=== PATIENT | female | born 1990 | race Caucasian/White ===

== ENCOUNTER 2016-03-07 15:25 | Inpatient (IN) | payer OTHER ==
[2016-03-07] MEDS ORDERED: SODIUM CHLORIDE 1,000 ML IV ONE ×2 (15:45→17:12)
--- NOTE | 2016-03-07 15:46 | PDOC ---
History of Present Illness - History of Present Illness Initial Comments: 03/07/16 18:11 The patient is a 25 year old female, with a significant past medical history of gastroparesis, IDDM, anxiety and depression, who presents to the emergency department with nausea and persistent vomiting today s/p discharge from the ICU on 03/03/16 for DKA (fs [id number]). She states she has been nauseous, vomiting brown liquid constantly since awakening this morning associated with epigastric pain c /w her gastroparesis. She states she has been experiencing pain/burning when swallowing recently, which she attributes to her recent intubation. She states she controls her diabetes with humalog and insulin daily and states her bgm was flucutanting but not severely deranged. She states she takes reglan for her gastroparesis. She denies chest pain, shortness of breath, headache and dizziness. She denies fever, chills, diarrhea and constipation. She denies dysuria, frequency, urgency and hematuria. pt currently having menses. Allergies: NKDA Social history: denies toxic habits PCP - Dr. Acevedo Crematory Operator: Dr. Alvarenga <Sylwia Fishman - Last Filed: 03/07/16 18:11> <Jason Ferreira - Last Filed: 03/09/16 02:27> - General Chief Complaint: Blood Sugar Problem Stated Complaint: BLOOD SUGAR PROBLEM Time Seen by Provider: 03/07/16 15:29 Past History <Sylwia Fishman - Last Filed: 03/07/16 18:11> - Past Medical History Anemia: No Asthma: No Cancer: No Cardiac Disorders: No CVA: No COPD: No CHF: No Dementia: No Diabetes: Yes GI Disorders: Yes (gastroparesis) Disorders: No HTN: No Hypercholesterolemia: No Liver Disease: No Psychiatric Problems: Yes (ANXIETY DEPRESSION) Suicide Attempt (Hx): No Seizures: No Thyroid Disease: No - Surgical History Abdominal Surgery: No Appendectomy: No Cardiac Surgery: No Cholecystectomy: No Lung Surgery: No Neurologic Surgery: No Orthopedic Surgery: No - Family Disease History Family Disease History: Diabetes: Grandparents (great-grandmother) - Immunization History Immunization Up to Date: Yes - Psycho/Social/Smoking Cessation Hx Anxiety: No Suicidal Ideation: No Smoking Status: No Smoking History: Current every day smoker Have you smoked in the past 12 months: Yes Number of Cigarettes Smoked Daily: 10 Information on smoking cessation initiated: No 'Breaking Loose' booklet given: 09/03/15 Hx Alcohol Use: No Drug/Substance Use Hx: No Substance Use Type: None Hx Substance Use Treatment: No <Jason Ferreira - Last Filed: 03/09/16 02:27> - Past Medical History Allergies/Adverse Reactions: Allergies Allergy/AdvReac Type Severity Reaction Status Date / Time No Known Allergies Allergy Verified 03/07/16 15:35 Home Medications: Ambulatory Orders Insulin Lispro [Humalog] 0 unit SQ ASDIR 07/18/13 Amitriptyline HCl [Elavil -] 3 tab PO DAILY #0 06/27/15 Acetaminophen [Tylenol] 650 mg PO Q4H PRN #20 tablet 01/17/16 Metoclopramide HCl [Reglan] 10 mg PO Q6H PRN #15 tablet 01/17/16 Ranitidine HCl [Zantac] 150 mg PO BID PRN #20 tablet 01/17/16 Insulin (Levemir) [Levemir Vial] 15 units SQ BIDAC #12 ml 03/03/16 Valacyclovir HCl [Valtrex -] 500 mg PO BID #10 tablet 03/03/16 Review of Systems - Review of Systems Able to Perform ROS?: Yes Comments:: 03/07/16 18:12 CONSTITUTIONAL: No reported: Fever, Chills, Diaphoresis, Generalized Weakness, Malaise, Loss of Appetite HEENT: No reported: Rhinorrhea, Nasal Congestion, Throat Pain, Throat Swelling, Difficulty Swallowing, Mouth Swelling, Ear Pain, Eye Pain, Visual Changes CARDIOVASCULAR: No reported: Chest Pain, Syncope, Palpitations, Irregular Heart Rate, Lightheadedness, Peripheral Edema RESPIRATORY: No reported: Cough, Shortness of Breath, SOB with Exertion, Orthopnea, Wheezing , Stridor, Hemoptysis GASTROINTESTINAL: No reported:(+) Nausea, Vomiting, NO Abdominal pain, Abdominal Distension, Diarrhea, Constipation, Melena, Hematochezia GENITOURINARY: No reported: Dysuria, Frequency, Urgency, Hesitancy, Flank Pain, Genital Pain MUSCULOSKELETAL: No reported: Myalgia, Arthralgia, Joint Swelling, Back pain, Neck Pain SKIN: No reported: Rash, Itching, Pallor HEMEATOLOGIC/IMMUNOLOGIC: No reported: Easy Bleeding, Easy Bruising, Lymphadenopathy, Frequent infections ENDOCRINE: No reported: Unexplained Weight Gain, Unexplained Weight Loss, Heat Intolerance , Cold Intolerance NEUROLOGIC: No reported: Headache, Focal Weakness, Paresthesias, Vertigo, Lightheadedness, Unsteady Gait, Seizure, Mental Status Changes, Incontinence PSYCHIATRIC: No reported: Anxiety, Depression <Sylwia Fishman - Last Filed: 03/07/16 18:11> *Physical Exam - Vital Signs Last Vital Signs Temp Pulse Resp BP Pulse Ox 99.3 F 101 H 16 146/93 98 03/07/16 15:37 03/07/16 15:37 03/07/16 15:37 03/07/16 15:37 03/07/16 15:37 - Physical Exam Comments: 03/07/16 18:12 GENERAL: The patient is actively vomiting upon exam. She is awake, alert, and fully oriented, Nontoxic - in no acute distress. HEAD: Normocephalic, atraumatic. EYES: extraocular movements intact, sclera anicteric, conjunctiva clear. ENT: Normal voice, Moist mucous membranes. NECK: Normal range of motion, supple LUNGS: Breath sounds equal, clear to auscultation bilaterally. No wheezes, no rhonchi, no rales. HEART: Regular rate and rhythm, without murmur, rub or gallop. ABDOMEN: Soft, nontender, normoactive bowel sounds. No guarding, no rebound.No CVA tenderness EXTREMITIES: Normal range of motion, no edema. No clubbing or cyanosis. No cords, erythema, or tenderness. NEUROLOGICAL: No facial assymetry, Normal speech, PSYCH: Normal mood, normal affect. SKIN: Warm, Dry, normal turgor, <Sylwia Fishamn - Last Filed: 03/07/16 18:11> - Vital Signs Last Vital Signs Temp Pulse Resp BP Pulse Ox 99.3 F 101 H 16 146/93 98 03/07/16 15:37 03/07/16 15:37 03/07/16 15:37 03/07/16 15:37 03/07/16 15:37 <Jason Ferreira - Last Filed: 03/09/16 02:27> Heart Score/ECG Review - ECG Impressions Comment:: 03/07/16 17:56 Twelve-lead EKG was performed and reviewed by me. There is normal sinus rhythm with a rate of 104 The axis is normal. The intervals are normal. Impression: sinus tachycardia <HannaJustinJason - Last Filed: 03/09/16 02:27> ED Treatment Course - LABORATORY CBC & Chemistry Diagram: 03/07/16 16:20 03/07/16 16:20 - ADDITIONAL ORDERS Additional order review: Laboratory Results 03/07/16 03/07/16 03/07/16 16:20 16:20 16:20 VBG pH 7.39 POC VBG pCO2 47.8 D POC VBG pO2 21.6 L D Sodium 139 Potassium 4.1 Chloride 101 Carbon Dioxide 28 Anion Gap 10 BUN 12 D Creatinine 0.6 Creat Clearance w eGFR > 60 POC Glucometer Random Glucose 211 H D Calcium 8.9 Phosphorus 3.3 D Magnesium 1.7 L D Total Bilirubin 0.4 AST 12 L D ALT 20 Alkaline Phosphatase 110 Total Protein 6.3 L Albumin 3.0 L Serum , Qual Negative 03/07/16 15:29 VBG pH POC VBG pCO2 POC VBG pO2 Sodium Potassium Chloride Carbon Dioxide Anion Gap BUN Creatinine Creat Clearance w eGFR POC Glucometer [phone] Random Glucose Calcium Phosphorus Magnesium Total Bilirubin AST ALT Alkaline Phosphatase Total Protein Albumin Serum , Qual 03/07/16 03/07/16 16:20 15:29 RBC 3.99 MCV 94.3 MCHC 32.3 RDW 13.5 MPV 8.0 Neutrophils % 80.0 Lymphocytes % 13.7 D Monocytes % 5.8 Eosinophils % 0.2 D Basophils % 0.3 POC Glucometer [phone] - Medications Given in the ED: ED Medications Discontinued Medications Generic Name Dose Route Start Last Admin Trade Name Freq PRN Reason Stop Dose Admin Sodium Chloride 1,000 mls @ 1,000 mls/hr 03/07/16 15:45 03/07/16 15:57 Normal Saline - IV 03/07/16 16:44 1,000 mls/hr .Q1H ONE Administration Sodium Chloride 1,000 mls @ 1,000 mls/hr 03/07/16 17:12 03/07/16 17:57 Normal Saline - IV 03/07/16 18:11 1,000 mls/hr .Q1H ONE Administration Magnesium Sulfate 1 gm 03/07/16 17:12 03/07/16 17:57 Magnesium Sulfate IVPB 12/31/16 17:13 1 gm ONCE ONE Administration Metoclopramide HCl 10 mg 03/07/16 15:52 03/07/16 16:20 Reglan Injection - IVPUSH 03/07/16 15:53 10 mg ONCE ONE Administration Morphine Sulfate 2 mg 03/07/16 15:52 03/07/16 16:20 Morphine Injection - IVPUSH 03/07/16 15:53 2 mg ONCE ONE Administration <Sylwia Fishman - Last Filed: 03/07/16 18:11> - LABORATORY CBC & Chemistry Diagram: 03/08/16 08:20 03/08/16 08:20 <Jason Ferreira - Last Filed: 03/09/16 02:27> Medical Decision Making - Medical Decision Making 03/07/16 15:59 25y F hx gastroparesis, dka, with recent hospitalization for dka, presents with epgiastric pain and vomiting since this morning, pt staets her bgms have been up and down but fairly reasonable. on exam pt is wretching, and uncomfortable appearing, her abd exam is soft nontender. will r/o dka w/ labs, acetones, blood gas will give fluids morpine, reglan for sypmtomatic relief will reassess 03/07/16 17:31 pts labs reviewed no signs of dka or acidosis bgm is also reasonable will give pt another L of NS will then PO challenge, if pt is not feeling well, nauseus will observe as pt is high risk for DKA if she is not able to hydrate orally 03/07/16 18:56 pt was able to tolerate some water, but was still feeling very nauseus due to the patients hx of gastroparesis and recent DKA with severe acidosis, will observe the pt for further hydration and treatment of nausea/gastroparesis will observe on hospitalist service 03/07/16 19:11 case d/w dr. taylor agreed with observatio nfor furthe rmangment of gastroparesis stable for med/surg Case discussed in detail with admitting physician including history, physical exam and ancillary studies. Admitting physician has assumed care for the patient, will follow all pending diagnostics and will complete the evaluation and treatment. <Jason Ferreira - Last Filed: 03/09/16 02:27> *DC/Admit/Observation/Transfer - Attestations Scribe Attestion: 03/07/16 18:12 Documentation prepared by Sylwia Fishman, acting as medical records field technician for Jason Ferreira MD, MD <Sylwia Fishman - Last Filed: 03/07/16 18:11> - Discharge Dispostion Admit: Yes <Jason Ferreira - Last Filed: 03/09/16 02:27> Diagnosis at time of Disposition: Gastroparesis due to DM, Nausea - Discharge Dispostion Disposition: AGAINST MEDICAL ADVICE - Referrals
[2016-03-07] MEDS ORDERED: METOCLOPRAMIDE HCL INJECTION 10 MG/2 ML VIAL IVPUSH ONE (15:52)
[2016-03-07] MEDS ORDERED: morphine CARPU-JECT 2 MG/1 ML DISP.SYRIN IVPUSH ONE (15:52)
[2016-03-07] MEDS ORDERED: morphine CARPU-JECT 2 MG/1 ML DISP.SYRIN ONE (15:58)
[2016-03-07] MEDS ORDERED: METOCLOPRAMIDE HCL INJECTION 10 MG/2 ML VIAL ONE ×2 (15:58→19:52)
[2016-03-07 16:22] LABS: VENOUS PH 7.39 (7.31-7.41)
[2016-03-07 16:34] LABS: BASOPHIL 0.3 % (0-2.0); EOSINOPHIL 0.2 % (0-4.5); MCH 30.5 pg (25.7-33.7); MCHC 32.3 g/dl (32.0-36.0); MEAN CELL VOLUME 94.3 fl (80-96); PLATELET COUNT 517 K/MM3 (134-434); RDW 13.5 % (11.6-15.6); WHITE BLOOD COUNT 15.4 K/mm3 (4.0-10.0)
[2016-03-07 16:58] LABS: ALK PHOS 110 U/L (45-117); ANION GAP 10 (8-16); BILIRUBIN,TOTAL 0.4 mg/dL (0.2-1.0); CALCIUM 8.9 mg/dL (8.5-10.1); CO2 28 mmol/L (21-32); CREATININE 0.6 mg/dL (0.55-1.02); GLUCOSE,RANDOM 211 mg/dL (74-106); MAGNESIUM 1.7 mg/dL (1.8-2.4); PHOSPHOROUS 3.3 mg/dL (2.5-4.9); SGOT/AST 12 U/L (15-37); SGPT/ALT 20 U/L (12-78); TOT PROT 6.3 g/dl (6.4-8.2)
[2016-03-07] MEDS ORDERED: MAGNESIUM SULF 50% (8.12 MEQ/2 ML-1 GM VIAL) IVPB ONE (17:12)
[2016-03-07] MEDS ORDERED: MAGNESIUM SULF 50% (8.12 MEQ/2 ML-1 GM VIAL) ONE (17:50)
[2016-03-07] MEDS ORDERED: ONDANSETRON 4 MG/2 ML VIAL IVPB ONE (18:56)
--- NOTE | 2016-03-07 19:04 | PN ---
Teaching Attending Note Name of Resident: Meli Silva ATTENDING PHYSICIAN STATEMENT I saw and evaluated the patient. I reviewed the resident's note and discussed the case with the resident. I agree with the resident's findings and plan as documented. SUBJECTIVE: OBJECTIVE: ASSESSMENT AND PLAN:
[2016-03-07] MEDS ORDERED: ONDANSETRON 4 MG/2 ML VIAL ONE (19:07)
[2016-03-07] MEDS ORDERED: METOCLOPRAMIDE HCL INJECTION 10 MG/2 ML VIAL IVPB ONE (19:26)
[2016-03-07] MEDS ORDERED: SODIUM CHLORIDE 1,000 ML IV STA (19:26)
--- NOTE | 2016-03-07 19:50 | HP ---
CHIEF COMPLAINT: Nausea and vomiting PCP: HISTORY OF PRESENT ILLNESS: 25 yo F, with PMH of IDDM requiring several hospitalizations for hyperglycemia, gastroparesis, frequent UTI, anxiety and depression who presented to the hospital with nausea and vomiting that started today in the morning. She vomited once at home with brownish fluid and twice in ED. She was recently hospitalized in [place] for DKA and intubated. The pt is complaining of burning with swallowing since her last admission. She is also complaining of constipation. The pt is compliant with insulin; Lantus 15 units at bedtime. BGM at home around 200s. She denies diarrhea, dizziness, fever, chills, chest pain, SOB, cough. She denies dysuria, increased frequency, urgency, LOC, dizziness. ER course was notable for: (1)WBC 15.4 (2)EKG nl PAST MEDICAL HISTORY: IDDM diagnosed at age 8, gastroparesis, frequent UTI, depression, anxiety PAST SURGICAL HISTORY: None Social History: Smoking:Yes, current smoker 10 cigarettes/day for 10 years Alcohol:No Drugs:No Family History: Mother and Father are both healthy Allergies No Known Allergies Allergy (Verified 03/07/16 15:35) HOME MEDICATIONS: Medication Instructions Recorded Insulin Lispro [Humalog] 0 unit SQ ASDIR 07/18/13 Amitriptyline HCl [Elavil -] 3 tab PO DAILY #0 06/27/15 Acetaminophen [Tylenol] 650 mg PO Q4H PRN #20 tablet 01/17/16 Metoclopramide HCl [Reglan] 10 mg PO Q6H PRN #15 tablet 01/17/16 Ranitidine HCl [Zantac] 150 mg PO BID PRN #20 tablet 01/17/16 Insulin (Levemir) [Levemir Vial] 15 units SQ BIDAC #12 ml 03/03/16 Valacyclovir HCl [Valtrex -] 500 mg PO BID #10 tablet 03/03/16 REVIEW OF SYSTEMS CONSTITUTIONAL: Absent: fever, chills, diaphoresis, generalized weakness, malaise, loss of appetite, weight change HEENT: throat pain Absent: rhinorrhea, nasal congestion, , throat swelling, difficulty swallowing , mouth swelling, ear pain, eye pain, visual changes CARDIOVASCULAR: Absent: chest pain, syncope, palpitations, irregular heart rate, lightheadedness , peripheral edema RESPIRATORY: Absent: cough, shortness of breath, dyspnea with exertion, orthopnea, wheezing, stridor, hemoptysis GASTROINTESTINAL: nausea, vomiting, constipation Absent: abdominal pain, abdominal distension, diarrhea, melena, hematochezia GENITOURINARY: Absent: dysuria, frequency, urgency, hesitancy, hematuria, flank pain, genital pain MUSCULOSKELETAL: Absent: myalgia, arthralgia, joint swelling, back pain, neck pain SKIN: Absent: rash, itching, pallor HEMATOLOGIC/IMMUNOLOGIC: Absent: easy bleeding, easy bruising, lymphadenopathy, frequent infections ENDOCRINE: Absent: unexplained weight gain, unexplained weight loss, heat intolerance, cold intolerance NEUROLOGIC: Absent: headache, focal weakness or paresthesias, dizziness, unsteady gait, seizure, mental status changes, bladder or bowel incontinence PSYCHIATRIC: Absent: anxiety, depression PHYSICAL EXAMINATION Vital Signs - 24 hr 03/07/16 15:37 Temperature 99.3 F Pulse Rate 101 H Respiratory 16 Rate Blood Pressure 146/93 O2 Sat by Pulse 98 Oximetry (%) GENERAL: Awake, alert, and fully oriented, in no acute distress. HEAD: Normal with no signs of trauma. EYES: Pupils equal, round and reactive to light, extraocular movements intact, sclera anicteric, conjunctiva clear. No lid lag. EARS, NOSE, THROAT: Ears normal, nares patent, oropharynx clear without exudates. Moist mucous membranes. NECK: Normal range of motion, supple without lymphadenopathy, JVD, or masses. LUNGS: Breath sounds equal, clear to auscultation bilaterally. No wheezes, and no crackles. No accessory muscle use. HEART: Regular rate and rhythm, normal S1 and S2 without murmur, rub or gallop. ABDOMEN: Soft, nontender, not distended, normoactive bowel sounds, no guarding, no rebound, no masses. No hepatomegaly or splenomegaly. MUSCULOSKELETAL: Normal range of motion at all joints. No bony deformities or tenderness. No CVA tenderness. UPPER EXTREMITIES: 2+ pulses, warm, well-perfused. No cyanosis. No clubbing. Cap refill <2 seconds. No peripheral edema. LOWER EXTREMITIES: 2+ pulses, warm, well-perfused. No calf tenderness. No peripheral edema. NEUROLOGICAL: Cranial nerves II-XII intact. Normal speech. Normal gait. PSYCHIATRIC: Cooperative. Good eye contact. Appropriate mood and affect. SKIN: Warm, dry, normal turgor, no rashes, 2 cm healing wound on upper lip. Laboratory Results - last 24 hr 03/07/16 03/07/16 03/07/16 15:29 16:20 16:20 WBC 15.4 H RBC 3.99 Hgb 12.2 D Hct 37.7 D MCV 94.3 MCHC 32.3 RDW 13.5 Plt Count 517 H D MPV 8.0 Neutrophils % 80.0 Lymphocytes % 13.7 D Monocytes % 5.8 Eosinophils % 0.2 D Basophils % 0.3 VBG pH POC VBG pCO2 POC VBG pO2 Sodium Potassium Chloride Carbon Dioxide Anion Gap BUN Creatinine Creat Clearance w eGFR POC Glucometer [phone] Random Glucose Calcium Phosphorus Magnesium Total Bilirubin AST ALT Alkaline Phosphatase Total Protein Albumin Serum , Qual Negative Acetone, Qual 03/07/16 03/07/16 03/07/16 16:20 16:20 16:20 WBC RBC Hgb Hct MCV MCHC RDW Plt Count MPV Neutrophils % Lymphocytes % Monocytes % Eosinophils % Basophils % VBG pH 7.39 POC VBG pCO2 47.8 D POC VBG pO2 21.6 L D Sodium 139 Potassium 4.1 Chloride 101 Carbon Dioxide 28 Anion Gap 10 BUN 12 D Creatinine 0.6 Creat Clearance w eGFR > 60 POC Glucometer Random Glucose 211 H D Calcium 8.9 Phosphorus 3.3 D Magnesium 1.7 L D Total Bilirubin 0.4 AST 12 L D ALT 20 Alkaline Phosphatase 110 Total Protein 6.3 L Albumin 3.0 L Serum , Qual Acetone, Qual Trace H ASSESSMENT/PLAN: 25 yo F, with PMH of IDDM requiring several hospitalizations for hyperglycemia, gastroparesis, frequent UTI, anxiety and depression who presented to the hospital with nausea and vomiting that started today in the morning. She vomited once at home with brownish fluid and twice in ED. She was recently hospitalized in [place] for DKA and intubated. The pt is complaining of burning with swallowing since her last admission. Gastroparesis( Nause and Vomiting): -continue Reglan 10 mg IV, Ranitidine 150 mg BID -IVF-NS 1 L Bolus -consider CT abdomen tomorrow - IDDM: -continue Levemir 50 u BID -continue RISS ACHS -BGM Q4H HSV-upper lip: -continue Valtrex Depression; -continue home meds:Elavil DVT Prophylaxis; -SCDs F/E/N: NFS/No change/Diabetic diet Disposition: Placed in observation Problem List - Problem (1) Gastroparesis due to DM Code(s): E11.43 - TYPE 2 DIABETES W DIABETIC AUTONOMIC (POLY)NEUROPATHY K31.84 - GASTROPARESIS (2) Nausea Code(s): R11.0 - NAUSEA (3) Insulin dependent diabetes mellitus Code(s): E11.9 - TYPE 2 DIABETES MELLITUS WITHOUT COMPLICATIONS Z79.4 - [employer] ENGINEER (CURRENT) USE OF INSULIN (4) DVT prophylaxis Code(s): AJZ0276 - Visit type - Emergency Visit Emergency Visit: Yes Care time: The patient presented to the Emergency Department on the above date and was hospitalized for further evaluation of their emergent condition. - New Patient This patient is new to me today: Yes Date on this admission: 03/07/16 - Critical Care Critical Care patient: No
--- NOTE | 2016-03-07 19:53 | PN ---
<Chaim Charles - Last Filed: 03/07/16 19:53> Teaching Attending Note Name of Resident: Meli Silva ATTENDING PHYSICIAN STATEMENT I saw and evaluated the patient. I reviewed the resident's note and discussed the case with the resident. I agree with the resident's findings and plan as documented. SUBJECTIVE: OBJECTIVE: ASSESSMENT AND PLAN: <Jayjay Montalvo - Last Filed: 03/07/16 21:42> Teaching Attending Note Name of Resident: Meli Silva ATTENDING PHYSICIAN STATEMENT I saw and evaluated the patient. I reviewed the resident's note and discussed the case with the resident. I agree with the resident's findings and plan as documented. SUBJECTIVE: 25 year old female, with a history of IDDM, gastroparesis, anxiety and depression, who was recently admitted for DKA and currently presenting with consistent nausea and vomiting. OBJECTIVE: GENERAL: Awake, alert, and fully oriented, in no acute distress HEENT: Atraumatic. PERRLA, EOMI. +Dry mucosa. No JVD LUNGS: No distress, speaks full sentences, clear to auscultation bilaterally HEART: Regular rate and rhythm, normal S1 and S2, no murmurs, rubs or gallops, peripheral pulses normal and equal bilaterally. ABDOMEN: Soft, nontender, normoactive bowel sounds. No guarding, no rebound. No masses EXTREMITIES: Normal inspection, Normal range of motion, no edema. No clubbing or cyanosis. NEUROLOGICAL: Cranial nerves II through XII grossly intact. Normal speech, normal gait, no focal sensorimotor deficits SKIN: +Hepatic lesion upper lip. Warm, Dry, normal turgor, no rashes noted. CBCD WBC 15.4 K/mm3 (4.0-10.0) H 03/07/16 16:20 RBC 3.99 M/mm3 (3.60-5.2) 03/07/16 16:20 Hgb 12.2 GM/dL (10.7-15.3) D 03/07/16 16:20 Hct 37.7 % (32.4-45.2) D 03/07/16 16:20 MCV 94.3 fl (80-96) 03/07/16 16:20 MCHC 32.3 g/dl (32.0-36.0) 03/07/16 16:20 RDW 13.5 % (11.6-15.6) 03/07/16 16:20 Plt Count 517 K/MM3 (134-434) H D 03/07/16 16:20 MPV 8.0 fl (7.5-11.1) 03/07/16 16:20 CMP Sodium 139 mmol/L (136-145) 03/07/16 16:20 Potassium 4.1 mmol/L (3.5-5.1) 03/07/16 16:20 Chloride 101 mmol/L (98-107) 03/07/16 16:20 Carbon Dioxide 28 mmol/L (21-32) 03/07/16 16:20 Anion Gap 10 (8-16) 03/07/16 16:20 BUN 12 mg/dL (7-18) D 03/07/16 16:20 Creatinine 0.6 mg/dL (0.55-1.02) 03/07/16 16:20 Creat Clearance w eGFR > 60 (>60) 03/07/16 16:20 Calcium 8.9 mg/dL (8.5-10.1) 03/07/16 16:20 Total Bilirubin 0.4 mg/dL (0.2-1.0) 03/07/16 16:20 AST 12 U/L (15-37) L D 03/07/16 16:20 ALT 20 U/L (12-78) 03/07/16 16:20 Alkaline Phosphatase 110 U/L (45-117) 03/07/16 16:20 Total Protein 6.3 g/dl (6.4-8.2) L 03/07/16 16:20 Albumin 3.0 g/dl (3.4-5.0) L 03/07/16 16:20 ASSESSMENT AND PLAN: 25 year old female with IDDM, gastroparesis, anxiety and depression, presenting with persistent nausea and vomited being admitted for intractable nausea and vomiting 1.) Nausea and vomiting most likely related to diabetic gastroparesis -Worsening abdominal distention / pain, will consider CT abdomen/pelvis with contrast IVF -Continue with Reglan 2.) Insulin dependent diabetes, fingerstick Q4 - Continue with Levemir 15 mg BID, - Continue with sliding scale 3.) DVT prophylaxis - Low risks SCDs - Admit to observation 4.) HSV - Continue valtrex Documentation prepared by Jayjay Montalvo, acting as medical practitioners for Chaim Charles D.O.
[2016-03-07] MEDS ORDERED: METOCLOPRAMIDE HCL 10 MG TABLET (FP) PO PRN (20:19)
[2016-03-07] MEDS ORDERED: RANITIDINE HCL 150 MG TABLET (FP) PO PRN (20:19)
[2016-03-07] MEDS ORDERED: ACETAMINOPHEN 325 MG TABLET (FP) PO PRN (20:19)
[2016-03-07] MEDS ORDERED: POLYETHYLENE GLYCOL 3350 119 GM BTL PO ONE (21:36)
[2016-03-07] MEDS ORDERED: INSULIN SLIDING SCALE (NOVOLOG) 1 VIAL SQ SCH (22:00)
[2016-03-07] MEDS: INSULIN SLIDING SCALE (NOVOLOG) 1 VIAL SQ SCH (22:22)
[2016-03-07] MEDS: valACYclovir HCL 500 MG TABLET (FP) PO SCH (22:59)
[2016-03-08] MEDS ORDERED: METOCLOPRAMIDE HCL INJECTION 10 MG/2 ML VIAL IVPB SCH
[2016-03-08 00:11] VITALS: BMI 30.5
[2016-03-08] MEDS: METOCLOPRAMIDE HCL INJECTION 10 MG/2 ML VIAL IVPB SCH ×3 (01:09→12:37)
[2016-03-08] MEDS: INSULIN SLIDING SCALE (NOVOLOG) 1 VIAL SQ SCH ×3 (02:10→09:44)
[2016-03-08] MEDS ORDERED: INSULIN DETEMIR 100 UNITS/ML MDV SQ SCH (07:00)
[2016-03-08 07:49] VITALS: BP 120/71; PULSE 79; TEMP 98.3
[2016-03-08 08:39] LABS: MCH 32.6 pg (25.7-33.7); MCHC 34.8 g/dl (32.0-36.0); MEAN CELL VOLUME 93.9 fl (80-96); MEAN PLT VOLUME 7.5 fl (7.5-11.1); PLATELET COUNT 475 K/MM3 (134-434); RDW 13.1 % (11.6-15.6); WHITE BLOOD COUNT 10.8 K/mm3 (4.0-10.0)
--- NOTE | 2016-03-08 09:09 | PN ---
Physical Exam: SUBJECTIVE: Patient seen and examined OBJECTIVE: Vital Signs Temperature 98.3 F 03/08/16 07:48 Pulse Rate 79 03/08/16 07:48 Respiratory Rate 14 03/08/16 07:48 Blood Pressure 120/71 03/08/16 07:48 O2 Sat by Pulse Oximetry (%) 99 03/07/16 20:23 GENERAL: The patient is awake, alert, and fully oriented, in no acute distress. HEAD: Normal with no signs of trauma. EYES: PERRL, extraocular movements intact, sclera anicteric, conjunctiva clear. ENT: Ears normal, oropharynx clear without exudates, moist mucous membranes. NECK: Trachea midline, full range of motion, supple. LUNGS: Breath sounds equal, clear to auscultation bilaterally, no wheezes, no crackles, no accessory muscle use. HEART: Regular rate and rhythm, S1, S2 without murmur, rub or gallop. ABDOMEN: Soft, nontender, nondistended, normoactive bowel sounds, no guarding, no rebound, no hepatosplenomegaly, no masses. EXTREMITIES: 2+ pulses, warm, well-perfused, no edema. NEUROLOGICAL: Cranial nerves II through XII grossly intact. Normal speech, gait not observed. PSYCH: Normal mood, normal affect. SKIN: Warm, dry, normal turgor, no rashes or lesions noted CBCD WBC 10.8 K/mm3 (4.0-10.0) H 03/08/16 08:20 RBC 3.51 M/mm3 (3.60-5.2) L 03/08/16 08:20 Hgb 11.5 GM/dL (10.7-15.3) 03/08/16 08:20 Hct 33.0 % (32.4-45.2) 03/08/16 08:20 MCV 93.9 fl (80-96) 03/08/16 08:20 MCHC 34.8 g/dl (32.0-36.0) 03/08/16 08:20 RDW 13.1 % (11.6-15.6) 03/08/16 08:20 Plt Count 475 K/MM3 (134-434) H 03/08/16 08:20 MPV 7.5 fl (7.5-11.1) 03/08/16 08:20 CMP Sodium 139 mmol/L (136-145) 03/07/16 16:20 Potassium 4.1 mmol/L (3.5-5.1) 03/07/16 16:20 Chloride 101 mmol/L (98-107) 03/07/16 16:20 Carbon Dioxide 28 mmol/L (21-32) 03/07/16 16:20 Anion Gap 10 (8-16) 03/07/16 16:20 BUN 12 mg/dL (7-18) D 03/07/16 16:20 Creatinine 0.6 mg/dL (0.55-1.02) 03/07/16 16:20 Creat Clearance w eGFR > 60 (>60) 03/07/16 16:20 Random Glucose 211 mg/dL (74-106) H D 03/07/16 16:20 Calcium 8.9 mg/dL (8.5-10.1) 03/07/16 16:20 Total Bilirubin 0.4 mg/dL (0.2-1.0) 03/07/16 16:20 AST 12 U/L (15-37) L D 03/07/16 16:20 ALT 20 U/L (12-78) 03/07/16 16:20 Alkaline Phosphatase 110 U/L (45-117) 03/07/16 16:20 Total Protein 6.3 g/dl (6.4-8.2) L 03/07/16 16:20 Albumin 3.0 g/dl (3.4-5.0) L 03/07/16 16:20 Laboratory Results - last 24 hr 03/07/16 03/08/16 03/08/16 22:07 02:08 06:08 WBC RBC Hgb Hct MCV MCHC RDW Plt Count MPV POC Glucometer 131 266 169 03/08/16 08:20 WBC 10.8 H RBC 3.51 L Hgb 11.5 Hct 33.0 MCV 93.9 MCHC 34.8 RDW 13.1 Plt Count 475 H MPV 7.5 POC Glucometer Active Medications Generic Name Dose Route Start Last Admin Trade Name Freq PRN Reason Stop Dose Admin Acetaminophen 650 mg 03/07/16 20:19 Tylenol - PO Q4H PRN Pain Amitriptyline HCl 75 mg 03/08/16 10:00 Elavil - PO DAILY KARLENE Insulin Aspart 1 vial 03/07/16 22:00 03/08/16 06:17 Novolog Vial Sliding Scale - SQ 2 units Q4HPO KARLENE Administration Protocol Insulin Detemir 15 units 03/08/16 07:00 03/08/16 06:17 Levemir Vial SQ 15 units BIDAC KARLENE Administration Metoclopramide HCl 10 mg 03/08/16 01:00 03/08/16 06:16 Reglan Injection - IVPB 10 mg Q6HPO KARLENE Administration Ranitidine HCl 150 mg 03/07/16 20:19 Zantac - PO Q12H PRN Abdominal Pain Valacyclovir HCl 500 mg 03/07/16 22:00 03/07/16 22:59 Valtrex - PO 500 mg BID KARLENE Administration Medication Instructions Recorded Insulin Lispro [Humalog] 0 unit SQ ASDIR 07/18/13 Amitriptyline HCl [Elavil -] 3 tab PO DAILY #0 06/27/15 Acetaminophen [Tylenol] 650 mg PO Q4H PRN #20 tablet 01/17/16 Metoclopramide HCl [Reglan] 10 mg PO Q6H PRN #15 tablet 01/17/16 Ranitidine HCl [Zantac] 150 mg PO BID PRN #20 tablet 01/17/16 Insulin (Levemir) [Levemir Vial] 15 units SQ BIDAC #12 ml 03/03/16 Valacyclovir HCl [Valtrex -] 500 mg PO BID #10 tablet 03/03/16 ASSESSMENT/PLAN: 25 year old female with IDDM, gastroparesis, anxiety and depression, presenting with persistent nausea and vomited being admitted for intractable nausea and vomiting # Acute Intractable Nausea and vomiting most likely related to diabetic gastroparesis, with worsening abdominal distention and pain. will consider CT abdomen/pelvis with contrast IVF , on IV Reglan will continue # T1DM on sliding scale with coverage on Levemir 15 mg BID # HSV on Valtrex continue DVT prophylaxis : SCDs
[2016-03-08 09:12] LABS: CALCIUM 8.3 mg/dL (8.5-10.1)
[2016-03-08 09:17] LABS: CREATININE 0.5 mg/dL (0.55-1.02)
[2016-03-08] MEDS ORDERED: PT OWN MED DRAWER 7, Y5N ONE (09:33)
[2016-03-08] MEDS: valACYclovir HCL 500 MG TABLET (FP) PO SCH (09:40)
[2016-03-08] MEDS ORDERED: AMITRIPTYLINE HCL 25 MG TABLET (FP) PO SCH (10:00)
--- NOTE | 2016-03-08 13:18 | EKG ---
Test Reason : Blood Pressure : / mmHG Vent. Rate : 104 BPM Atrial Rate : 104 BPM P-R Int : 132 ms QRS Dur : 062 ms QT Int : 330 ms P-R-T Axes : 041 007 028 degrees QTc Int : 433 ms SINUS TACHYCARDIA WITH FUSION COMPLEXES POOR R WAVE PROGRESSION OTHERWISE NORMAL ECG Confirmed by MD MERRICK, TERESSA ([id number]) on 03/08/2016 1:18:07 PM Referred By: Overread By: TERESSA SIN MD
--- NOTE | 2016-03-08 19:40 | DS ---
Physical Exam: SUBJECTIVE: Patient seen and examined I was notified thst patient would like to sign AMA, but patient could not wait for the physician to see her or examine her. Signed the papers before she has been seen. As per nurse that patient is feeling better and does not want to stay. OBJECTIVE: Vital Signs Period Temp Pulse Resp BP Sys/Plata Pulse Ox Last 24 Hr 98.3 F-98.7 F 79-109 14-16 120-145/71-91 100 PHYSICAL EXAM LABS Laboratory Results - last 24 hr 03/07/16 03/08/16 03/08/16 22:07 02:08 06:08 WBC RBC Hgb Hct MCV MCHC RDW Plt Count MPV Sodium Potassium Chloride Carbon Dioxide Anion Gap BUN Creatinine POC Glucometer 131 266 169 Random Glucose Calcium 03/08/16 03/08/16 03/08/16 08:20 08:20 09:42 WBC 10.8 H RBC 3.51 L Hgb 11.5 Hct 33.0 MCV 93.9 MCHC 34.8 RDW 13.1 Plt Count 475 H MPV 7.5 Sodium 140 Potassium 4.0 Chloride 102 Carbon Dioxide 29 Anion Gap 9 BUN 5 L D Creatinine 0.5 L POC Glucometer 95 Random Glucose 100 D Calcium 8.3 L HOSPITAL COURSE: Date of Admission:03/07/16 Date of Discharge: 03/08/16 Minutes to complete discharge: 25 Discharge Summary Reason For Visit: GASTROPARESIS DUE TO DM Current Active Problems Gastroparesis due to DM (Acute) Leukemoid reaction (Acute) Nausea (Acute) Insulin dependent diabetes mellitus (Chronic) - Instructions Referrals: Clare Acevedo MD [Primary Care Provider] - Disposition: AGAINST MEDICAL ADVICE - Home Medications Comprehensive Discharge Medication List: Ambulatory Orders Insulin Lispro [Humalog] 0 unit SQ ASDIR 07/18/13 Amitriptyline HCl [Elavil -] 3 tab PO DAILY #0 06/27/15 Acetaminophen [Tylenol] 650 mg PO Q4H PRN #20 tablet 01/17/16 Metoclopramide HCl [Reglan] 10 mg PO Q6H PRN #15 tablet 01/17/16 Ranitidine HCl [Zantac] 150 mg PO BID PRN #20 tablet 01/17/16 Insulin (Levemir) [Levemir Vial] 15 units SQ BIDAC #12 ml 03/03/16 Valacyclovir HCl [Valtrex -] 500 mg PO BID #10 tablet 03/03/16 This patient is new to me today: Yes Date on this admission: 03/08/16 Emergency Visit: Yes ED Registration Date: 03/07/16 Care time: The patient presented to the Emergency Department on the above date and was hospitalized for further evaluation of their emergent condition. Critical Care patient: No - Discharge Referral Referred to [facility] Med P.C.: No
== END 2016-03-08 14:01 | disposition left against medical advice (07) | DRG 48 ==
LOC: JER 15:25 → JERBED 18:58 → UNDOADMIN 18:58 → JER 20:14 → JERBED 21:58 → J8W 22:01
PROVIDERS: ADMIT Internal Medicine; ATTEND Internal Medicine
DX: E10.43 Type 1 diabetes mellitus with diabetic autonomic (poly)neuropathy (principal); K31.84 Gastroparesis; Z79.4 Long term (current) use of insulin; B00.1 Herpesviral vesicular dermatitis; F32.9 Major depressive disorder, single episode, unspecified; F41.9 Anxiety disorder, unspecified; F17.210 Nicotine dependence, cigarettes, uncomplicated; K59.00 Constipation, unspecified
CPT/HCPCS: 36415; 80048; 80053; 81003; 82009; 82803; 83735; 84100; 84703; 85025; 85027; 93005; 93010; 99285-25

== ENCOUNTER 2016-04-01 11:51 | Inpatient (IN) | payer OTHER ==
[2016-04-01 12:02] VITALS: BMI 25.4
[2016-04-01] MEDS ORDERED: ONDANSETRON 4 MG/2 ML VIAL IVPUSH ONE (12:45)
[2016-04-01] MEDS ORDERED: SODIUM CHLORIDE 2,000 ML IV STA (12:45)
--- NOTE | 2016-04-01 12:45 | PDOC ---
History of Present Illness - General History Source: Patient Exam Limitations: No Limitations - History of Present Illness Initial Comments: 04/01/16 13:14 The patient is a 25 year old female with significant past medical history of gastroparesis and diabetes who presents to the emergency department with nausea and vomiting for 1 day. The patient states her symptoms started suddenly last night. She reports 2 episodes of vomiting since last night, non-bloody. The patient reports epigastric pain that is consistent with her gastroparesis. She states the pain is sharp, aching, and constant in nature. The pain does not radiate. She denies any associated diarrhea or constipation. She denies chest pain and shortness of breath. She denies any dysuria, hematuria, or frequency. She denies recent illness and sick contacts. The patient reports associated fevers and chills but did not take her temperature at home. LMP was 1 week ago. Patient is an everyday smoker, denies alcohol or drug use. <Nickie Mcnamara - Last Filed: 04/01/16 13:14> - General History Source: Patient, Old Records Exam Limitations: No Limitations <Trina Chery - Last Filed: 04/01/16 17:31> - General Chief Complaint: Pain Stated Complaint: ABD PAIN Time Seen by Provider: 04/01/16 12:35 Past History <Nickie Mcnamara - Last Filed: 04/01/16 13:14> - Past Medical History Anemia: No Asthma: No Cancer: No Cardiac Disorders: No CVA: No COPD: No CHF: No Dementia: No Diabetes: Yes GI Disorders: Yes (gastroparesis) Disorders: No HTN: No Hypercholesterolemia: No Liver Disease: No Psychiatric Problems: Yes (ANXIETY DEPRESSION) Suicide Attempt (Hx): No Seizures: No Thyroid Disease: No - Surgical History Abdominal Surgery: No Appendectomy: No Cardiac Surgery: No Cholecystectomy: No Lung Surgery: No Neurologic Surgery: No Orthopedic Surgery: No - Family Disease History Family Disease History: Diabetes: Grandparents (great-grandmother) - Immunization History Immunization Up to Date: Yes - Psycho/Social/Smoking Cessation Hx Anxiety: Yes Suicidal Ideation: No Smoking Status: No Smoking History: Current every day smoker Have you smoked in the past 12 months: Yes Number of Cigarettes Smoked Daily: 10 Information on smoking cessation initiated: No 'Breaking Loose' booklet given: 09/03/15 Hx Alcohol Use: No Drug/Substance Use Hx: No Substance Use Type: None Hx Substance Use Treatment: No <Trina Chery - Last Filed: 04/01/16 17:31> - Past Medical History Allergies/Adverse Reactions: Allergies Allergy/AdvReac Type Severity Reaction Status Date / Time No Known Allergies Allergy Verified 04/01/16 12:02 Home Medications: Ambulatory Orders Insulin Lispro [Humalog] 0 unit SQ ASDIR 07/18/13 Amitriptyline HCl [Elavil -] 3 tab PO DAILY #0 06/27/15 Acetaminophen [Tylenol] 650 mg PO Q4H PRN #20 tablet 01/17/16 Metoclopramide HCl [Reglan] 10 mg PO Q6H PRN #15 tablet 01/17/16 Ranitidine HCl [Zantac] 150 mg PO BID PRN #20 tablet 01/17/16 Insulin (Levemir) [Levemir Vial] 15 units SQ BIDAC #12 ml 03/03/16 Valacyclovir HCl [Valtrex -] 500 mg PO BID #10 tablet 03/03/16 Review of Systems - Review of Systems Able to Perform ROS?: Yes Comments:: 04/01/16 13:14 GENERAL/CONSTITUTIONAL: +Fever, +chills. No weakness. HEAD, EYES, EARS, NOSE AND THROAT: No change in vision. No ear pain or discharge. No sore throat. CARDIOVASCULAR: No chest pain or shortness of breath. RESPIRATORY: No cough, wheezing, or hemoptysis. GASTROINTESTINAL: +Nausea, +vomiting. No diarrhea or constipation. GENITOURINARY: No dysuria, frequency, or change in urination. MUSCULOSKELETAL: No joint or muscle swelling or pain. No neck or back pain. SKIN: No rash NEUROLOGIC: No headache, vertigo, loss of consciousness, or change in strength/ sensation. ENDOCRINE: No increased thirst. No abnormal weight change. HEMATOLOGIC/LYMPHATIC: No anemia, easy bleeding, or history of blood clots. ALLERGIC/IMMUNOLOGIC: No hives or skin allergy. <Nickie Mcnamara - Last Filed: 04/01/16 13:14> *Physical Exam - Vital Signs Last Vital Signs Temp Pulse Resp BP Pulse Ox 98.4 F 132 H 20 159/103 98 04/01/16 12:00 04/01/16 12:00 04/01/16 12:00 04/01/16 12:00 04/01/16 12:00 - Physical Exam Comments: 04/01/16 13:14 GENERAL: Awake, alert, and fully oriented, in no acute distress HEAD: No signs of trauma EYES: PERRLA, EOMI, sclera anicteric, conjunctiva clear ENT: Auricles normal inspection, hearing grossly normal, nares patent, oropharynx clear without exudates. Moist mucosa NECK: Normal ROM, supple, no lymphadenopathy, JVD, or masses LUNGS: Breath sounds equal, clear to auscultation bilaterally. No wheezes, and no crackles HEART: +Tachycardic and regular rhythm, normal S1 and S2, no murmurs, rubs or gallops ABDOMEN: +Epigastric tenderness to palpation, no guarding and no rebound. Soft, normoactive bowel sounds. No masses EXTREMITIES: Normal range of motion, no edema. No clubbing or cyanosis. No cords, erythema, or tenderness NEUROLOGICAL: Cranial nerves II through XII grossly intact. Normal speech, normal gait SKIN: Warm, Dry, normal turgor, no rashes or lesions noted. <Nickie Mcnamara - Last Filed: 04/01/16 13:14> - Vital Signs Last Vital Signs Temp Pulse Resp BP Pulse Ox 98.4 F 132 H 20 159/103 98 04/01/16 12:00 04/01/16 12:00 04/01/16 12:00 04/01/16 12:00 04/01/16 12:00 <Trina Chery - Last Filed: 04/01/16 17:31> ED Treatment Course - LABORATORY CBC & Chemistry Diagram: 04/01/16 14:20 04/01/16 13:54 <Trina Chery - Last Filed: 04/01/16 17:31> Medical Decision Making - Medical Decision Making 04/01/16 13:08 25 y/o female with h/o IDDM and DM gastroparesis who presents to the ED with c/ o epigastric pain, nausea and vomiting since last night. Her HR is 135. DDx includes but is not limited to: DKA, uncontrolled DM, gastroparesis, pancreatitis, GB disease, gastritis, electrolyte abnormality, dehydration, toxic /metabolic derangement. Plan: 1. Labs, test, urine analysis 2. IVF for hydration 3. Anti-emetics 4. Observe and re-evaluate 04/01/16 15:31 Addendum: The labs were reviewed and are noted int he EMR. The patient has an anion gap of 19 and +2 acetone with a glucose of 319 and a WBC of 25k. Blood cultures as well as lactate and VBG have been ordered as well as an insulin drip. Zosyn and Vancomycin have also been ordered. Will admit to the ICU for management of DKA. <Trina Chery - Last Filed: 04/01/16 17:31> *DC/Admit/Observation/Transfer - Attestations Scribe Attestion: 04/01/16 13:15 Documentation prepared by Nickie Mcnamara, acting as biomedical engineering internship for Trina Chery MD. <Nickie Mcnamara - Last Filed: 04/01/16 13:14> - Discharge Dispostion Admit: Yes - Attestations Physician Attestion: 04/01/16 13:10 I, Dr. Trina Chery, attest that the scribes documentation that appears above has been prepared under my direction and personally reviewed by me in its entirety. I confirmed that the note above accurately reflects all work, treatment, procedures, and medical decision-making performed by me. <Trina Chery - Last Filed: 04/01/16 17:31> Diagnosis at time of Disposition: Epigastric abdominal pain, Nausea & vomiting, DKA (diabetic ketoacidosis) - Discharge Dispostion Disposition: AGAINST MEDICAL ADVICE Condition at time of disposition: Good - Referrals
[2016-04-01] MEDS ORDERED: ONDANSETRON 4 MG/2 ML VIAL ONE (13:07)
[2016-04-01 14:09] LABS: URINE APPEARANCE CLOUDY; URINE BILIRUBIN NEGATIVE (NEGATIVE); URINE BLOOD NEGATIVE (NEGATIVE); URINE COLOR YELLOW; URINE GLUCOSE (UA) 3+ (NEGATIVE); URINE KETONE 2+ (NEGATIVE); URINE LEUK ESTERASE NEGATIVE (NEGATIVE); URINE NITRITE NEGATIVE (NEGATIVE); URINE UROBILINOGEN NEGATIVE E.U./dl (0.2-1.0)
[2016-04-01 14:16] LABS: URINE PROTEIN 3+ (NEGATIVE)
[2016-04-01 14:18] LABS: URINE BACTERIA RARE /hpf (NONE SEEN); URINE MUCUS RARE; URINE RBC 10 /hpf (0-3); URINE WBC 11 /hpf (3-5)
[2016-04-01 14:37] LABS: ALBUMIN 3.8 g/dl (3.4-5.0); ALK PHOS 129 U/L (45-117); ANION GAP 19 (8-16); BILIRUBIN,TOTAL 1.2 mg/dL (0.2-1.0); CALCIUM 8.7 mg/dL (8.5-10.1); CO2 22 mmol/L (21-32); CREATININE 0.7 mg/dL (0.55-1.02); PHOSPHOROUS 3.8 mg/dL (2.5-4.9); SGOT/AST 29 U/L (15-37); SGPT/ALT 16 U/L (12-78); TOT PROT 7.8 g/dl (6.4-8.2)
[2016-04-01 14:37] LABS: MCH 31.3 pg (25.7-33.7); MCHC 33.4 g/dl (32.0-36.0); MEAN CELL VOLUME 93.5 fl (80-96); MEAN PLT VOLUME 8.4 fl (7.5-11.1); PLATELET COUNT 510 K/MM3 (134-434); RDW 13.5 % (11.6-15.6); WHITE BLOOD COUNT 24.9 K/mm3 (4.0-10.0)
[2016-04-01 14:48] LABS: GLUCOSE,RANDOM 310 mg/dL (74-106)
--- NOTE | 2016-04-01 15:04 | EKG ---
Test Reason : Blood Pressure : / mmHG Vent. Rate : 114 BPM Atrial Rate : 114 BPM P-R Int : 138 ms QRS Dur : 068 ms QT Int : 342 ms P-R-T Axes : 040 006 031 degrees QTc Int : 471 ms SINUS TACHYCARDIA CANNOT RULE OUT ANTERIOR INFARCT , AGE UNDETERMINED ABNORMAL ECG WHEN COMPARED WITH ECG OF 07-MAR-2016 16:35, FUSION COMPLEXES ARE NO LONGER PRESENT Confirmed by INNA BROCK, MORENO ([id number]) on 04/01/2016 3:03:58 PM Referred By: Confirmed By:MORENO KEITH MD
[2016-04-01] MEDS ORDERED: VANCOMYCIN 1,000 MG in DEXTROSE 5%-WATER - 250 ML IVPB ONE (15:09)
[2016-04-01] MEDS ORDERED: PIPERACILLIN/TAZOB 3.375 GM/50 ML PRE-DOCKED IV ONE (15:09)
[2016-04-01] MEDS ORDERED: INSULIN REGULAR 100 UNITS in SODIUM CHLORIDE 99 ML IVPB SCH (15:15)
[2016-04-01] MEDS ORDERED: VANCOMYCIN 1 GRAM (PRE-DOCKED) 250 ML IVPB ONE (15:22)
[2016-04-01] MEDS ORDERED: PIPERACILLIN/TAZOB 3.375 GM 50 ML IVPB ONE (15:23)
[2016-04-01 15:25] LABS: TROPONIN I < 0.01 ng/ml (0.00-0.05)
[2016-04-01] MEDS ORDERED: INSULIN REGULAR HUMAN 100 UNITS/ML *VIAL ONE (15:25)
[2016-04-01 15:29] LABS: ACETONE SERUM POSITIVE MODERATE 2+ (NEGATIVE)
[2016-04-01] MEDS ORDERED: METOCLOPRAMIDE HCL INJECTION 10 MG/2 ML VIAL IVPB ONE (16:06)
[2016-04-01] MEDS ORDERED: METOCLOPRAMIDE HCL INJECTION 10 MG/2 ML VIAL ONE (16:09)
[2016-04-01 16:30] LABS: PLATELET ESTIMATE INCREASED (NORMAL)
[2016-04-01 16:32] VITALS: TEMP 98.4
[2016-04-01] MEDS ORDERED: D5-1/2NS+20 MEQ KCL - 1,000 ML IV SCH (17:00)
--- NOTE | 2016-04-01 17:13 | HP ---
CHIEF COMPLAINT: PCP: HISTORY OF PRESENT ILLNESS: ER course was notable for: (1) (2) (3) Recent Travel: PAST MEDICAL HISTORY: PAST SURGICAL HISTORY: Social History: Smoking: Alcohol: Drugs: Family History: Allergies No Known Allergies Allergy (Verified 04/01/16 12:02) HOME MEDICATIONS: Medication Instructions Recorded Insulin Lispro [Humalog] 0 unit SQ ASDIR 07/18/13 Amitriptyline HCl [Elavil -] 3 tab PO DAILY #0 06/27/15 Acetaminophen [Tylenol] 650 mg PO Q4H PRN #20 tablet 01/17/16 Metoclopramide HCl [Reglan] 10 mg PO Q6H PRN #15 tablet 01/17/16 Ranitidine HCl [Zantac] 150 mg PO BID PRN #20 tablet 01/17/16 Insulin (Levemir) [Levemir Vial] 15 units SQ BIDAC #12 ml 03/03/16 Valacyclovir HCl [Valtrex -] 500 mg PO BID #10 tablet 03/03/16 REVIEW OF SYSTEMS CONSTITUTIONAL: Absent: fever, chills, diaphoresis, generalized weakness, malaise, loss of appetite, weight change HEENT: Absent: rhinorrhea, nasal congestion, throat pain, throat swelling, difficulty swallowing, mouth swelling, ear pain, eye pain, visual changes CARDIOVASCULAR: Absent: chest pain, syncope, palpitations, irregular heart rate, lightheadedness , peripheral edema RESPIRATORY: Absent: cough, shortness of breath, dyspnea with exertion, orthopnea, wheezing, stridor, hemoptysis GASTROINTESTINAL: Absent: abdominal pain, abdominal distension, nausea, vomiting, diarrhea, constipation, melena, hematochezia GENITOURINARY: Absent: dysuria, frequency, urgency, hesitancy, hematuria, flank pain, genital pain MUSCULOSKELETAL: Absent: myalgia, arthralgia, joint swelling, back pain, neck pain SKIN: Absent: rash, itching, pallor HEMATOLOGIC/IMMUNOLOGIC: Absent: easy bleeding, easy bruising, lymphadenopathy, frequent infections ENDOCRINE: Absent: unexplained weight gain, unexplained weight loss, heat intolerance, cold intolerance NEUROLOGIC: Absent: headache, focal weakness or paresthesias, dizziness, unsteady gait, seizure, mental status changes, bladder or bowel incontinence PSYCHIATRIC: Absent: anxiety, depression, suicidal or homicidal ideation, hallucinations. PHYSICAL EXAMINATION Vital Signs Period Temp Pulse Resp BP Sys/Plata Pulse Ox Last 24 Hr 98.2 F-98.4 F 122-132 20-24 140-159/98-103 98-98 GENERAL: Awake, alert, and fully oriented, in no acute distress. HEAD: Normal with no signs of trauma. EYES: Pupils equal, round and reactive to light, extraocular movements intact, sclera anicteric, conjunctiva clear. No lid lag. EARS, NOSE, THROAT: Ears normal, nares patent, oropharynx clear without exudates. Moist mucous membranes. NECK: Normal range of motion, supple without lymphadenopathy, JVD, or masses. LUNGS: Breath sounds equal, clear to auscultation bilaterally. No wheezes, and no crackles. No accessory muscle use. HEART: Regular rate and rhythm, normal S1 and S2 without murmur, rub or gallop. ABDOMEN: Soft, nontender, not distended, normoactive bowel sounds, no guarding, no rebound, no masses. No hepatomegaly or splenomegaly. MUSCULOSKELETAL: Normal range of motion at all joints. No bony deformities or tenderness. No CVA tenderness. UPPER EXTREMITIES: 2+ pulses, warm, well-perfused. No cyanosis. No clubbing. Cap refill <2 seconds. No peripheral edema. LOWER EXTREMITIES: 2+ pulses, warm, well-perfused. No calf tenderness. No peripheral edema. NEUROLOGICAL: Cranial nerves II-XII intact. Normal speech. Normal gait. PSYCHIATRIC: Cooperative. Good eye contact. Appropriate mood and affect. SKIN: Warm, dry, normal turgor, no rashes or lesions noted. Laboratory Tests 04/01/16 04/01/16 04/01/16 13:54 13:54 13:54 WBC Cancelled Corrected WBC (auto) Cancelled RBC Cancelled Hgb Cancelled Hct Cancelled MCV Cancelled MCHC Cancelled RDW Cancelled Plt Count Cancelled MPV Cancelled Neutrophils % Cancelled Lymphocytes % Cancelled Monocytes % Cancelled Eosinophils % Cancelled Basophils % Cancelled Band Neutrophils Differential Comment Cancelled Smudge Cells Cancelled Platelet Estimate Cancelled Platelet Comment Cancelled RBC Morphology Cancelled Sodium 133 L Potassium 5.0 D Chloride 92 L Carbon Dioxide 22 D Anion Gap 19 H BUN 18 D Creatinine 0.7 D Creat Clearance w eGFR > 60 POC Glucometer Random Glucose 310 H* D Lactic Acid Calcium 8.7 Phosphorus 3.8 Magnesium 2.0 Total Bilirubin 1.2 H D AST 29 D ALT 16 Alkaline Phosphatase 129 H Creatine Kinase 101 Troponin I < 0.01 Total Protein 7.8 D Albumin 3.8 D Lipase 50 L Urine Color Yellow Urine Appearance Cloudy Urine pH 6.0 Ur Specific [place] 1.035 Urine Protein 3+ H Urine Glucose (UA) 3+ H Urine Ketones 2+ H Urine Blood Negative Urine Nitrite Negative Urine Bilirubin Negative Urine Urobilinogen Negative Ur Leukocyte Esterase Negative Urine RBC 10 Urine WBC 11 Ur Epithelial Cells Many Urine Bacteria Rare Urine Mucus Rare Urine HCG, Qual Negative Acetone, Qual Positive moderate 2+ H 04/01/16 04/01/16 04/01/16 13:55 14:20 14:20 WBC 24.9 H D Corrected WBC (auto) RBC 4.45 D Hgb 13.9 D Hct 41.6 D MCV 93.5 MCHC 33.4 RDW 13.5 Plt Count 510 H MPV 8.4 D Neutrophils % 86.0 H Lymphocytes % 8.0 D Monocytes % 4.0 Eosinophils % Basophils % Band Neutrophils 2.0 D Differential Comment Smudge Cells Platelet Estimate Increased Platelet Comment RBC Morphology Appears normal Sodium Cancelled Potassium Cancelled Chloride Cancelled Carbon Dioxide Cancelled Anion Gap Cancelled BUN Cancelled Creatinine Cancelled Creat Clearance w eGFR Cancelled POC Glucometer [phone] Random Glucose Cancelled Lactic Acid Calcium Cancelled Phosphorus Cancelled Magnesium Cancelled Total Bilirubin Cancelled AST Cancelled ALT Cancelled Alkaline Phosphatase Cancelled Creatine Kinase Cancelled Troponin I Cancelled Total Protein Cancelled Albumin Cancelled Lipase Cancelled Urine Color Urine Appearance Urine pH Ur Specific [place] Urine Protein Urine Glucose (UA) Urine Ketones Urine Blood Urine Nitrite Urine Bilirubin Urine Urobilinogen Ur Leukocyte Esterase Urine RBC Urine WBC Ur Epithelial Cells Urine Bacteria Urine Mucus Urine HCG, Qual Acetone, Qual 04/01/16 04/01/16 04/01/16 14:20 14:20 15:48 WBC Corrected WBC (auto) RBC Hgb Hct MCV MCHC RDW Plt Count MPV Neutrophils % Lymphocytes % Monocytes % Eosinophils % Basophils % Band Neutrophils Differential Comment Smudge Cells Platelet Estimate Platelet Comment RBC Morphology Sodium Potassium Chloride Carbon Dioxide Anion Gap BUN Creatinine Creat Clearance w eGFR POC Glucometer [phone] Random Glucose Lactic Acid Calcium Phosphorus Cancelled Magnesium Cancelled Total Bilirubin AST ALT Alkaline Phosphatase Creatine Kinase Cancelled Troponin I Cancelled Total Protein Albumin Lipase Cancelled Urine Color Urine Appearance Urine pH Ur Specific [place] Urine Protein Urine Glucose (UA) Urine Ketones Urine Blood Urine Nitrite Urine Bilirubin Urine Urobilinogen Ur Leukocyte Esterase Urine RBC Urine WBC Ur Epithelial Cells Urine Bacteria Urine Mucus Urine HCG, Qual Acetone, Qual Cancelled 04/01/16 04/01/16 16:00 16:48 WBC Corrected WBC (auto) RBC Hgb Hct MCV MCHC RDW Plt Count MPV Neutrophils % Lymphocytes % Monocytes % Eosinophils % Basophils % Band Neutrophils Differential Comment Smudge Cells Platelet Estimate Platelet Comment RBC Morphology Sodium Potassium Chloride Carbon Dioxide Anion Gap BUN Creatinine Creat Clearance w eGFR POC Glucometer [phone] Random Glucose Lactic Acid 1.133 Calcium Phosphorus Magnesium Total Bilirubin AST ALT Alkaline Phosphatase Creatine Kinase Troponin I Total Protein Albumin Lipase Urine Color Urine Appearance Urine pH Ur Specific [place] Urine Protein Urine Glucose (UA) Urine Ketones Urine Blood Urine Nitrite Urine Bilirubin Urine Urobilinogen Ur Leukocyte Esterase Urine RBC Urine WBC Ur Epithelial Cells Urine Bacteria Urine Mucus Urine HCG, Qual Acetone, Qual ASSESSMENT/PLAN:
--- NOTE | 2016-04-01 17:35 | CONSULT ---
Consult Consult Specialty:: Pulm/CCM Referred by:: Vik/Venus Reason for Consultation:: DIABETIC KETOACIDOSIS - History of Present Illness Chief Complaint: ABDOMINAL PAIN History of Present Illness: 25F with history of DM on insulin presents with DKA for ICU admission went to evaluate patient and she refused ICU admission and wanted to sign out AMA and got to [facility] where her grandmother is waiting for her along with her PMD. tried to convince patient to stay and explain how critical she was so critical she requires an ICU admission. Dr. Chery also had an extensive conversation with the patient explaining the risks of leaving the hospital including . She states she understands the severity of her condition but her grandma wants her to go to [facility] - Past Medical History Gastrointestinal: Yes: Constipation, Pancreatitis, Other (Diabetic Gastroparesis ) ...LMP: 03/07/16 ...: No Psych: Yes: Anxiety, Depression Endocrine: Yes: Diabetes Mellitus (type 1), Other (dka) - Past Surgical History Past Surgical History: Yes: Upper Endoscopy (spring diabetic gastroparesis) - Alcohol/Substance Use Hx Alcohol Use: No History of Substance Use: reports: Marijuana - Smoking History Smoking history: Current every day smoker Have you smoked in the past 12 months: Yes Aproximately how many cigarettes per day: 10 - Social History ADL: Independent 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 History of Recent Travel: No Home Medications - Allergies Allergies/Adverse Reactions: Allergies Allergy/AdvReac Type Severity Reaction Status Date / Time No Known Allergies Allergy Verified 04/01/16 12:02 - Home Medications Home Medications: Ambulatory Orders Insulin Lispro [Humalog] 0 unit SQ ASDIR 07/18/13 Amitriptyline HCl [Elavil -] 3 tab PO DAILY #0 06/27/15 Acetaminophen [Tylenol] 650 mg PO Q4H PRN #20 tablet 01/17/16 Metoclopramide HCl [Reglan] 10 mg PO Q6H PRN #15 tablet 01/17/16 Ranitidine HCl [Zantac] 150 mg PO BID PRN #20 tablet 01/17/16 Insulin (Levemir) [Levemir Vial] 15 units SQ BIDAC #12 ml 03/03/16 Valacyclovir HCl [Valtrex -] 500 mg PO BID #10 tablet 03/03/16 Family Disease History - Family Disease History Family Disease History: Diabetes: Grandparent, Other: Father (healthy and living ), Mother (healthy and living) Physical Exam Vital Signs: Vital Signs Temperature 98.4 F 04/01/16 16:31 Pulse Rate 123 H 04/01/16 16:31 Respiratory Rate 24 04/01/16 16:31 Blood Pressure 144/99 04/01/16 16:31 O2 Sat by Pulse Oximetry (%) 98 04/01/16 16:31
[2016-04-01 18:01] VITALS: BP 148/93; PULSE 138
== END 2016-04-01 18:00 | disposition left against medical advice (07) | DRG 420 ==
LOC: JER 11:51 → JERBED 15:45
PROVIDERS: ADMIT Internal Medicine; ATTEND Internal Medicine
DX: E10.10 Type 1 diabetes mellitus with ketoacidosis without coma (principal); F41.8 Other specified anxiety disorders; E10.43 Type 1 diabetes mellitus with diabetic autonomic (poly)neuropathy; K31.84 Gastroparesis; K59.09 Other constipation; K86.1 Other chronic pancreatitis; F17.210 Nicotine dependence, cigarettes, uncomplicated
CPT/HCPCS: 36415; 71010-TC; 80053; 81003; 81015; 82009; 82550; 83605; 83690; 83735; 84100; 84484; 84703; 85025; 87040; 93005; 93010; 99285-25

== ENCOUNTER 2016-05-14 17:44 | Inpatient (IN) | payer OTHER ==
[2016-05-14] MEDS ORDERED: SODIUM CHLORIDE 1,000 ML IV STA ×2 (18:09→20:03)
--- NOTE | 2016-05-14 18:30 | PDOC ---
History of Present Illness - History of Present Illness Initial Comments: 05/14/16 19:20 The patient is a 26 year old female, with a significant past medical history of gastroparesis, IDDM, anxiety, and depression, who presents to the emergency department with epigastric pain, nausea and persistent vomiting today. The patient states she took her blood glucose level two days ago and they were high and she denies eating much of anything since. The patient states she feels slightly short of breath, which she reports experiencing with her DKA at times. She denies chest pain, headache and dizziness. She denies fever, chills, diarrhea and constipation. She denies dysuria, frequency, urgency and hematuria. PCP - Dr. Acevedo <Sylwia Fishman - Last Filed: 05/14/16 19:20> <Jason Ferreira - Last Filed: 05/16/16 08:48> - General Chief Complaint: Blood Sugar Problem Stated Complaint: Blood Sugar Problem Time Seen by Provider: 05/14/16 18:03 Past History <Sylwia Fishman - Last Filed: 05/14/16 19:20> - Past Medical History Anemia: No Asthma: No Cancer: No Cardiac Disorders: No CVA: No COPD: No CHF: No Dementia: No Diabetes: Yes GI Disorders: Yes (gastroparesis) Disorders: No HTN: No Hypercholesterolemia: No Liver Disease: No Psychiatric Problems: Yes (ANXIETY DEPRESSION) Suicide Attempt (Hx): No Seizures: No Thyroid Disease: No - Surgical History Abdominal Surgery: No Appendectomy: No Cardiac Surgery: No Cholecystectomy: No Lung Surgery: No Neurologic Surgery: No Orthopedic Surgery: No - Family Disease History Family Disease History: Diabetes: Grandparents (great-grandmother) - Immunization History Immunization Up to Date: Yes - Psycho/Social/Smoking Cessation Hx Anxiety: No Suicidal Ideation: No Smoking Status: No Smoking History: Current every day smoker Have you smoked in the past 12 months: Yes Number of Cigarettes Smoked Daily: 10 Information on smoking cessation initiated: No 'Breaking Loose' booklet given: 09/03/15 Hx Alcohol Use: No Drug/Substance Use Hx: No Substance Use Type: None Hx Substance Use Treatment: No <Jason Ferreira - Last Filed: 05/16/16 08:48> - Past Medical History Allergies/Adverse Reactions: Allergies Allergy/AdvReac Type Severity Reaction Status Date / Time No Known Allergies Allergy Verified 05/14/16 17:56 Home Medications: Ambulatory Orders Insulin Lispro [Humalog] 0 unit SQ ASDIR 07/18/13 Amitriptyline HCl [Elavil -] 3 tab PO DAILY #0 06/27/15 Acetaminophen [Tylenol] 650 mg PO Q4H PRN #20 tablet 01/17/16 Metoclopramide HCl [Reglan] 10 mg PO Q6H PRN #15 tablet 01/17/16 Ranitidine HCl [Zantac] 150 mg PO BID PRN #20 tablet 01/17/16 Insulin (Levemir) [Levemir Vial] 15 units SQ BIDAC #12 ml 03/03/16 Review of Systems - Review of Systems Able to Perform ROS?: Yes Comments:: 05/14/16 19:21 CONSTITUTIONAL: (+) Generalized Weakness,No reported: Fever, Chills, Diaphoresis, Malaise, Loss of Appetite HEENT: No reported: Rhinorrhea, Nasal Congestion, Throat Pain, Throat Swelling, Difficulty Swallowing, Mouth Swelling, Ear Pain, Eye Pain, Visual Changes CARDIOVASCULAR: No reported: Chest Pain, Syncope, Palpitations, Irregular Heart Rate, Lightheadedness, Peripheral Edema RESPIRATORY: No reported: Cough, Shortness of Breath, SOB with Exertion, Orthopnea, Wheezing , Stridor, Hemoptysis GASTROINTESTINAL: (+) Abdominal pain, Nausea, Vomiting,No reported: Abdominal Distension, Diarrhea , Constipation, Melena, Hematochezia GENITOURINARY: No reported: Dysuria, Frequency, Urgency, Hesitancy, Flank Pain, Genital Pain MUSCULOSKELETAL: No reported: Myalgia, Arthralgia, Joint Swelling, Back pain, Neck Pain SKIN: No reported: Rash, Itching, Pallor HEMEATOLOGIC/IMMUNOLOGIC: No reported: Easy Bleeding, Easy Bruising, Lymphadenopathy, Frequent infections ENDOCRINE: No reported: Unexplained Weight Gain, Unexplained Weight Loss, Heat Intolerance , Cold Intolerance NEUROLOGIC: No reported: Headache, Focal Weakness, Paresthesias, Vertigo, Lightheadedness, Unsteady Gait, Seizure, Mental Status Changes, Incontinence PSYCHIATRIC: No reported: Anxiety, Depression <Sylwia Fishman - Last Filed: 05/14/16 19:20> *Physical Exam - Vital Signs Last Vital Signs Temp Pulse Resp BP Pulse Ox 98.7 F 131 H 28 H 102/47 99 05/14/16 17:57 05/14/16 17:57 05/14/16 17:57 05/14/16 17:57 05/14/16 17:57 - Physical Exam Comments: 05/14/16 19:21 GENERAL: The patient is awake, alert, and fully oriented,. HEAD: Normocephalic, atraumatic. EYES: extraocular movements intact, sclera anicteric, conjunctiva clear. ENT: (+) dry mucous membranes. Normal voice, NECK: Normal range of motion, supple LUNGS: Breath sounds equal, tachypneic HEART: (+)tachycardic, without murmur, rub or gallop. ABDOMEN: Soft, nontender, normoactive bowel sounds. No guarding, no rebound.No CVA tenderness EXTREMITIES: Normal range of motion, no edema. No clubbing or cyanosis. No cords, erythema, or tenderness. NEUROLOGICAL: No facial assymetry, Normal speech, PSYCH: Normal mood, normal affect. SKIN: Warm, Dry, normal turgor, <Sylwia Fishman - Last Filed: 05/14/16 19:20> - Vital Signs Last Vital Signs Temp Pulse Resp BP Pulse Ox 98.7 F 131 H 28 H 102/47 99 05/14/16 17:57 05/14/16 17:57 05/14/16 17:57 05/14/16 17:57 05/14/16 17:57 <Jason Ferreira - Last Filed: 05/16/16 08:48> ED Treatment Course - LABORATORY CBC & Chemistry Diagram: 05/14/16 18:06 05/14/16 18:06 - ADDITIONAL ORDERS Additional order review: Laboratory Results 05/14/16 19:10 Puncture Site Right radial ABG pH 7.07 L* D ABG pCO2 at Pt Temp 10.9 L* D ABG pO2 at Pt Temp 125.0 H ABG HCO3 3.0 L* ABG O2 Sat (Measured) 95.9 ABG O2 Content 13.1 L ABG Base Excess -26.4 L* Jase Test Positive Carboxyhemoglobin 1.9 Methemoglobin 1.3 Oxygen Flow Rate 21% PEEP 0.0 05/14/16 18:06 RBC 3.76 MCV 105.5 H MCHC 28.7 L RDW 15.4 D MPV 9.3 D Neutrophils % Y Lymphocytes % Y - Medications Given in the ED: ED Medications Discontinued Medications Generic Name Dose Route Start Last Admin Trade Name Monika PRN Reason Stop Dose Admin Sodium Chloride 1,000 mls @ 1,000 mls/hr 05/14/16 18:09 05/14/16 18:31 Normal Saline - IV 05/14/16 19:08 1,000 mls/hr .Q1H STA Administration <Sylwia Fishman - Last Filed: 05/14/16 19:20> - LABORATORY CBC & Chemistry Diagram: 05/16/16 05:20 05/16/16 05:20 <Jason Ferreira - Last Filed: 05/16/16 08:48> Medical Decision Making - Medical Decision Making 05/14/16 18:40 26y F hx of gastroparesis, IDDM multiple episodes of DKA, presents tot he ED with epigastric pain, n/v for the past 2 days. pt unable tot olerate any oral intake - on exam pt appears with dry mm, vitals noted for tachycardia to 130s, bp low normal - pts EKG noted for changes suggestive of Brugada syndrome (no hx of syncope though) - ekg faxed to cardiology - as EKG noted for STEMI according to read - however her changes more suggestive of brugada rather than STEMI (no recipricol changes ) - pt also denies any cp. consider also metabolic derangements/hyperkalemia 2 large bore IVs wree started and the pt was started on fluids labs obtained likely DKA - awaiting K/lytes before starting insuling gtt. A portion of this note was documented by scribe services under my direction. I have reviewed the details of the note, within reason, and agree with the documentation with the following case summary and management plan written by me 05/14/16 19:[address] lindsey - manuela this is likely not STEMI w/o reciprocol changes - and her EKG also suggestive of brugada, but does not need immediate acute intervention - would await K would also obtain trops. 05/14/16 19:42 noted for significant leukocytosis also metabolic acidosis on abg awaiting CMP case signed ou tt odr. sinesterra - anticipate starting insulin gtt, and icu admission agressive fluid hydration CRITICAL CARE DOCUMENTATION: I spent ~35 minutes of Critical Care time, excluding separately billable procedures, involving high complexity decision making to assess, manipulate and support vital system function(s) to treat single or multiple vital organ system failure and/or to prevent further life threatening deterioration of the patient' s condition. <Jason Ferreira - Last Filed: 05/16/16 08:48> *DC/Admit/Observation/Transfer - Attestations Scribe Attestion: 05/14/16 19:22 Documentation prepared by Sylwia Fishman, acting as medical investigator for Jason Ferreira MD, MD <Sylwia Fishman - Last Filed: 05/14/16 19:20> <Jason Ferreira - Last Filed: 05/16/16 08:48> Diagnosis at time of Disposition: DKA (diabetic ketoacidosis) - Referrals
[2016-05-14 18:46] LABS: URINE APPEARANCE CLOUDY; URINE BILIRUBIN NEGATIVE (NEGATIVE); URINE BLOOD NEGATIVE (NEGATIVE); URINE COLOR LTYELLOW; URINE GLUCOSE (UA) 3+ (NEGATIVE); URINE KETONE 2+ (NEGATIVE); URINE LEUK ESTERASE NEGATIVE (NEGATIVE); URINE NITRITE NEGATIVE (NEGATIVE); URINE PROTEIN NEGATIVE (NEGATIVE); URINE UROBILINOGEN NEGATIVE E.U./dl (0.2-1.0)
[2016-05-14 19:10] LABS: WHITE BLOOD COUNT 40.2 K/mm3 (4.0-10.0)
[2016-05-14 19:11] LABS: MCH 30.3 pg (25.7-33.7); MCHC 28.7 g/dl (32.0-36.0); MEAN CELL VOLUME 105.5 fl (80-96); MEAN PLT VOLUME 9.3 fl (7.5-11.1); PLATELET COUNT 422 K/MM3 (134-434); RDW 15.4 % (11.6-15.6)
[2016-05-14 19:14] LABS: ARTERIAL BLD GAS O2 SATURATION 95.9 % (90-98.9); ARTERIAL BLOOD GAS BASE EXCESS -26.4 meq/l (-2-2)
[2016-05-14 19:17] LABS: ARTERIAL BLOOD GAS pH 7.07 (7.35-7.45)
[2016-05-14 19:18] LABS: ALLENS TEST POSITIVE; ART PUNCT SITE RIGHT RADIAL; LPM/O2% 21%; METHEMOGLOBIN 1.3 % (0.4-1.5); PT. ON O2? NO
[2016-05-14 19:35] LABS: PLATELET ESTIMATE ADEQUATE (NORMAL)
[2016-05-14 19:47] LABS: ALBUMIN 3.5 g/dl (3.4-5.0); ANION GAP 30 (8-16); BILIRUBIN,TOTAL 0.8 mg/dL (0.2-1.0); CALCIUM 8.2 mg/dL (8.5-10.1); CO2 6 mmol/L (21-32); CREATININE 1.8 mg/dL (0.55-1.02); SGOT/AST 19 U/L (15-37); SGPT/ALT 21 U/L (12-78); TOT PROT 6.7 g/dl (6.4-8.2)
[2016-05-14 19:50] LABS: ALK PHOS 151 U/L (45-117); TROPONIN I < 0.02 ng/ml (0.00-0.05)
[2016-05-14 19:53] LABS: GLUCOSE,RANDOM 1106 mg/dL (74-106)
[2016-05-14] MEDS ORDERED: SODIUM BICARBONATE 8.4% 50 MEQ/50 ML DISP.SYRIN IVPUSH ONE (19:55)
[2016-05-14] MEDS ORDERED: DEXTROSE 50%-WATER 50 ML VIAL IVPUSH ONE (19:55)
[2016-05-14] MEDS ORDERED: INSULIN REGULAR HUMAN 100 UNITS/ML *VIAL IVPUSH ONE (19:55)
[2016-05-14] MEDS ORDERED: CALCIUM GLUCONATE 10% - 1,000 MG/10 ML VIAL IVPUSH ONE (19:55)
[2016-05-14] MEDS ORDERED: CALCIUM GLUCONATE 10% - 1,000 MG/10 ML VIAL ONE (19:59)
[2016-05-14] MEDS ORDERED: INSULIN REGULAR 100 UNITS in SODIUM CHLORIDE 99 ML IVPB SCH (20:00)
[2016-05-14] MEDS ORDERED: DEXTROSE 50%-WATER 50 ML DISP.SYRIN ONE (20:00)
[2016-05-14] MEDS ORDERED: INSULIN REGULAR HUMAN 100 UNITS/ML *VIAL ONE (20:00)
[2016-05-14] MEDS ORDERED: SODIUM BICARBONATE 8.4% 50 MEQ/50 ML VIAL ONE (20:00)
--- NOTE | 2016-05-14 20:00 | PDOC ---
*Physical Exam - Vital Signs Last Vital Signs Temp Pulse Resp BP Pulse Ox 98.7 F 131 H 27 H 102/43 95 05/14/16 17:57 05/14/16 17:57 05/14/16 19:23 05/14/16 19:23 05/14/16 19:23 <Jayjay Kathleen - Last Filed: 05/14/16 20:00> - Vital Signs Last Vital Signs Temp Pulse Resp BP Pulse Ox 98.7 F 129 H 32 H 101/42 96 05/14/16 17:57 05/14/16 20:20 05/14/16 20:20 05/14/16 20:20 05/14/16 20:20 <Ellyn Chen - Last Filed: 05/14/16 20:47> ED Treatment Course - LABORATORY CBC & Chemistry Diagram: 05/14/16 18:06 05/14/16 18:06 - ADDITIONAL ORDERS Additional order review: Laboratory Results 05/14/16 05/14/16 05/14/16 19:10 18:15 18:06 Puncture Site Right radial ABG pH 7.07 L* D ABG pCO2 at Pt Temp 10.9 L* D ABG pO2 at Pt Temp 125.0 H ABG HCO3 3.0 L* ABG O2 Sat (Measured) 95.9 ABG O2 Content 13.1 L ABG Base Excess -26.4 L* Jase Test Positive Carboxyhemoglobin 1.9 Methemoglobin 1.3 Oxygen Flow Rate 21% PEEP 0.0 Sodium 115 L* D Potassium 7.1 H* D Chloride 79 L D Carbon Dioxide 6 L D Anion Gap 30 H BUN 59 H D Creatinine 1.8 H D Creat Clearance w eGFR 34.01 Random Glucose 1106 H* Calcium 8.2 L Total Bilirubin 0.8 D AST 19 D ALT 21 D Alkaline Phosphatase 151 H Creatine Kinase 75 Troponin I < 0.02 Total Protein 6.7 Albumin 3.5 Urine Color Ltyellow Urine Appearance Cloudy Urine pH 5.0 Ur Specific [place] 1.020 Urine Protein Negative Urine Glucose (UA) 3+ H Urine Ketones 2+ H Urine Blood Negative Urine Nitrite Negative Urine Bilirubin Negative Urine Urobilinogen Negative Ur Leukocyte Esterase Negative 05/14/16 18:06 RBC 3.76 MCV 105.5 H MCHC 28.7 L RDW 15.4 D MPV 9.3 D Neutrophils % 83.0 H Lymphocytes % 3.0 L D Monocytes % 3.0 L - Medications Given in the ED: ED Medications Discontinued Medications Generic Name Dose Route Start Last Admin Trade Name Monika PRN Reason Stop Dose Admin Sodium Chloride 1,000 mls @ 1,000 mls/hr 05/14/16 18:09 05/14/16 18:31 Normal Saline - IV 05/14/16 19:08 1,000 mls/hr .Q1H STA Administration <Jayjay Kathleen - Last Filed: 05/14/16 20:00> - LABORATORY CBC & Chemistry Diagram: 05/14/16 18:06 05/14/16 18:06 - ADDITIONAL ORDERS Additional order review: Laboratory Results 05/14/16 05/14/16 05/14/16 19:10 18:15 18:06 Puncture Site Right radial ABG pH 7.07 L* D ABG pCO2 at Pt Temp 10.9 L* D ABG pO2 at Pt Temp 125.0 H ABG HCO3 3.0 L* ABG O2 Sat (Measured) 95.9 ABG O2 Content 13.1 L ABG Base Excess -26.4 L* Jase Test Positive Carboxyhemoglobin 1.9 Methemoglobin 1.3 Oxygen Flow Rate 21% PEEP 0.0 Sodium 115 L* D Potassium 7.1 H* D Chloride 79 L D Carbon Dioxide 6 L D Anion Gap 30 H BUN 59 H D Creatinine 1.8 H D Creat Clearance w eGFR 34.01 Random Glucose 1106 H* Calcium 8.2 L Total Bilirubin 0.8 D AST 19 D ALT 21 D Alkaline Phosphatase 151 H Creatine Kinase 75 Troponin I < 0.02 Total Protein 6.7 Albumin 3.5 Urine Color Ltyellow Urine Appearance Cloudy Urine pH 5.0 Ur Specific [place] 1.020 Urine Protein Negative Urine Glucose (UA) 3+ H Urine Ketones 2+ H Urine Blood Negative Urine Nitrite Negative Urine Bilirubin Negative Urine Urobilinogen Negative Ur Leukocyte Esterase Negative Acetone, Qual Positive large 3+ H 05/14/16 18:06 RBC 3.76 MCV 105.5 H MCHC 28.7 L RDW 15.4 D MPV 9.3 D Neutrophils % 83.0 H Lymphocytes % 3.0 L D Monocytes % 3.0 L - Medications Given in the ED: ED Medications Discontinued Medications Generic Name Dose Route Start Last Admin Trade Name Monika PRN Reason Stop Dose Admin Calcium Gluconate 1,000 mg 05/14/16 19:55 05/14/16 20:17 Calcium Gluconate 10% - IVPUSH 05/14/16 19:56 1,000 mg ONCE ONE Administration Dextrose 50 ml 05/14/16 19:55 05/14/16 20:10 D50w (Vial) - IVPUSH 05/14/16 19:56 50 ml NOW ONE Administration Sodium Chloride 1,000 mls @ 1,000 mls/hr 05/14/16 18:09 05/14/16 18:31 Normal Saline - IV 05/14/16 19:08 1,000 mls/hr .Q1H STA Administration Insulin Human Regular 10 units 05/14/16 19:55 05/14/16 20:12 Novolin R Vial *Ivpush / Er / Icu Only* IVPUSH 05/14/16 19:56 10 unit ONCE ONE Administration Sodium Bicarbonate 50 meq 05/14/16 19:55 05/14/16 20:18 Sodium Bicarbonate 8.4% - IVPUSH 05/14/16 19:56 50 meq ONCE ONE Administration <Ellyn Chen - Last Filed: 05/14/16 20:47> Medical Decision Making - Medical Decision Making 05/14/16 20:46 Spoke to Jv Montano NP and patient is accepted for ICU admission. <Ellyn Chen - Last Filed: 05/14/16 20:47> *DC/Admit/Observation/Transfer - Discharge Dispostion Admit: Yes <Jayjay Kathleen - Last Filed: 05/14/16 20:00> <Ellyn Chen - Last Filed: 05/14/16 20:47> Diagnosis at time of Disposition: DKA (diabetic ketoacidosis) - Referrals Referrals: Clare Acevedo MD [Primary Care Provider] - - Patient Instructions - Post Discharge Activity
[2016-05-14 20:04] LABS: ACETONE SERUM POSITIVE LARGE 3+ (NEGATIVE)
--- NOTE | 2016-05-14 20:08 | PN ---
[id number] the patient. I reviewed the resident's note and discussed the case with the resident. I agree with the resident's findings and plan as documented. SUBJECTIVE: The patient is a 26 yo F with a PMHx of uncontrolled IDDM, multiple episodes of DKA, depression who presents to the ED with epigastric pain and n/v for the past two days. The patient reports she has not been feeling well and hasnt been able to tolerate any meals. The patient states her last BGM was high. Upon evaluation in the ED, the patient states she feels slightly short of breath. PMHx: Frequent UTIs, Anxiety, Depression, Gastroparesis Social hx: Half/pack cigarettes daily. Denies alcohol or drug use Family hx: Noncontributory OBJECTIVE: Physical Last Vital Signs Temp Pulse Resp BP Pulse Ox 98.7 F 131 H 27 H 102/43 95 05/14/16 17:57 05/14/16 17:57 05/14/16 19:23 05/14/16 19:23 05/14/16 19:23 GENERAL: + Somnolent. Awake, alert, and fully oriented, in no acute distress HEENT: Atraumatic. PERRLA, EOMI. No JVD. +Dry mucous membranes. LUNGS: No distress, speaks full sentences, clear to auscultation bilaterally HEART: + Tachpneic. Regular rate and rhythm, normal S1 and S2, no murmurs, rubs or gallops, peripheral pulses normal and equal bilaterally. ABDOMEN: Soft, nontender, normoactive bowel sounds. No guarding, no rebound. No masses EXTREMITIES: Normal inspection, Normal range of motion, no edema. No clubbing or cyanosis. NEUROLOGICAL: Cranial nerves II through XII grossly intact. No focal sensorimotor deficits SKIN: Warm, Dry, normal turgor, no rashes or lesions noted. CBCD WBC 40.2 K/mm3 (4.0-10.0) H* D 05/14/16 18:06 RBC 3.76 M/mm3 (3.60-5.2) 05/14/16 18:06 Hgb 11.4 GM/dL (10.7-15.3) D 05/14/16 18:06 Hct 39.7 % (32.4-45.2) 05/14/16 18:06 MCV 105.5 fl (80-96) H 05/14/16 18:06 MCHC 28.7 g/dl (32.0-36.0) L 05/14/16 18:06 RDW 15.4 % (11.6-15.6) D 05/14/16 18:06 Plt Count 422 K/MM3 (134-434) 05/14/16 18:06 MPV 9.3 fl (7.5-11.1) D 05/14/16 18:06 CMP Sodium 115 mmol/L (136-145) L* D 05/14/16 18:06 Potassium 7.1 mmol/L (3.5-5.1) H* D 05/14/16 18:06 Chloride 79 mmol/L (98-107) L D 05/14/16 18:06 Carbon Dioxide 6 mmol/L (21-32) L D 05/14/16 18:06 Anion Gap 30 (8-16) H 05/14/16 18:06 BUN 59 mg/dL (7-18) H D 05/14/16 18:06 Creatinine 1.8 mg/dL (0.55-1.02) H D 05/14/16 18:06 Creat Clearance w eGFR 34.01 (>60) 05/14/16 18:06 Calcium 8.2 mg/dL (8.5-10.1) L 05/14/16 18:06 Total Bilirubin 0.8 mg/dL (0.2-1.0) D 05/14/16 18:06 AST 19 U/L (15-37) D 05/14/16 18:06 ALT 21 U/L (12-78) D 05/14/16 18:06 Alkaline Phosphatase 151 U/L (45-117) H 05/14/16 18:06 Total Protein 6.7 g/dl (6.4-8.2) 05/14/16 18:06 Albumin 3.5 g/dl (3.4-5.0) 05/14/16 18:06 EKG Sinus tachycardia Possible L atrial enlargement ST elevation, consider anterior injury for acute infarct Vent. rate 127 bpm PA Interval 150 ms QRS Duration 88 ms QT/QTc 320/465 ms P-R-T axes 56 25 34 ASSESSMENT AND PLAN: The patient is a 26 yo F with PMHx of uncontrolled IDDM and DKA being admitted for DKA. -IVF Normal saline bolus -Continue 200 ccs/hr -Bicarb drip -Insulin drip -Repeat BMP Q2 hrs -Repeat Magnesium and Phos and supplement as needed -Monitor Is/Os -Fingersticks hourly -Once glucose is less than 250 advise PMD so fluids can be switched to D5/ half NS -Repeat ABG 4 hours from last -Follow UC and blood cultures Documentation prepared by Wanda Melton, acting as medical professionals for Brenda Bunn MD. <Sepideh Gutierrez - Last Filed: 05/28/16 05:33> Teaching Attending Note Name of Resident: Devin Avila Problem List - Problems (1) DKA (diabetic ketoacidosis) Code(s): E13.10 - OTH DIABETES MELLITUS WITH KETOACIDOSIS WITHOUT COMA Qualifiers: Diabetes mellitus type: type 1 Diabetes mellitus complication detail: without coma Qualified Code(s): E10.10 - Type 1 diabetes mellitus with ketoacidosis without coma (2) Leukemoid reaction Code(s): D72.823 - LEUKEMOID REACTION Critical Care Total Critical Care Time (in minutes): 75 Critical Care Statement: The care of this patient involved high complexity decision making to prevent further life threatening deterioration of the patient 's condition and/or to evalute & treat vital organ system(s) failure or risk of failure.
[2016-05-14] MEDS ORDERED: SODIUM CHLORIDE 1,000 ML with SODIUM BICARBONATE 8.4% - 100 MEQ IV SCH ×2 (20:15→22:30)
[2016-05-14] MEDS ORDERED: SODIUM BICARBONATE IV SCH (20:17)
[2016-05-14] MEDS ORDERED: HEMOQUE CONTROL SOLUTION ONE (20:17)
[2016-05-14] MEDS ORDERED: SODIUM CHLORIDE IV SCH (20:17)
[2016-05-14 21:36] LABS: ALBUMIN 2.8 g/dl (3.4-5.0); BILIRUBIN,TOTAL 0.7 mg/dL (0.2-1.0); CALCIUM 7.5 mg/dL (8.5-10.1); CREATININE 1.7 mg/dL (0.55-1.02); TOT PROT 5.5 g/dl (6.4-8.2)
[2016-05-14 21:49] LABS: URINE APPEARANCE CLEAR; URINE BILIRUBIN NEGATIVE (NEGATIVE); URINE COLOR COLORLESS; URINE GLUCOSE (UA) 3+ (NEGATIVE); URINE KETONE 2+ (NEGATIVE); URINE LEUK ESTERASE NEGATIVE (NEGATIVE); URINE NITRITE NEGATIVE (NEGATIVE); URINE PROTEIN NEGATIVE (NEGATIVE); URINE UROBILINOGEN NEGATIVE E.U./dl (0.2-1.0)
[2016-05-14 21:51] LABS: URINE BLOOD 1+ (NEGATIVE)
[2016-05-14] MEDS ORDERED: CHLORHEXIDINE GLUCONATE 4% CLEANSER FOR DECOLONIZATION TP SCH (22:00)
[2016-05-14] MEDS ORDERED: SODIUM CHLORIDE 250 ML IV STA (22:06)
--- NOTE | 2016-05-14 22:11 | HP ---
CHIEF COMPLAINT: PCP: HISTORY OF PRESENT ILLNESS: 25 yo F, with PMH of IDDM requiring several hospitalizations for hyperglycemia, gastroparesis, frequent UTI, anxiety and depression who presented to the hospital with nausea and vomiting that started today in the morning. She vomited once at home with brownish fluid and twice in ED. She prior hospitalization at [facility] for DKA and intubated. She denies diarrhea, dizziness, fever, chills, chest pain, cough. ER course was notable for: (1)ABG- ph 7.07 , AG- 30, BG 1106, Acetone- 3+= DKA (2)WBC- 40 Sodium 128 (3)CXR- No acute pathology Recent Travel: PAST MEDICAL HISTORY:IDDM diagnosed at age 8, gastroparesis, frequent UTI, depression, anxiety PAST SURGICAL HISTORY: Social History: Smoking:Yes, current smoker 10 cigarettes/day for 10 years Alcohol:No Drugs:No Family History: mother and father are in good health. Grandparents with DM Allergies No Known Allergies Allergy (Verified 05/14/16 17:56) HOME MEDICATIONS: Home Medications Medication Instructions Recorded Insulin Lispro [Humalog] 0 unit SQ ASDIR 07/18/13 Amitriptyline HCl [Elavil -] 3 tab PO DAILY #0 06/27/15 Acetaminophen [Tylenol] 650 mg PO Q4H PRN #20 tablet 01/17/16 Metoclopramide HCl [Reglan] 10 mg PO Q6H PRN #15 tablet 01/17/16 Ranitidine HCl [Zantac] 150 mg PO BID PRN #20 tablet 01/17/16 Insulin (Levemir) [Levemir Vial] 15 units SQ BIDAC #12 ml 03/03/16 Valacyclovir HCl [Valtrex -] 500 mg PO BID #10 tablet 03/03/16 REVIEW OF SYSTEMS CONSTITUTIONAL: Absent: fever, chills, diaphoresis, generalized weakness, malaise, loss of appetite, weight change HEENT: Absent: rhinorrhea, nasal congestion, throat pain, throat swelling, difficulty swallowing, mouth swelling, ear pain, eye pain, visual changes CARDIOVASCULAR: Absent: chest pain, syncope, palpitations, irregular heart rate, lightheadedness , peripheral edema RESPIRATORY:(+)shortness of breath, Absent: cough, dyspnea with exertion, orthopnea, wheezing, stridor, hemoptysis GASTROINTESTINAL:(+)nausea, vomiting Absent: abdominal pain, abdominal distension, , diarrhea, constipation, melena, hematochezia GENITOURINARY:(+) increased frequency, Absent: dysuria, urgency, hesitancy, hematuria, flank pain, genital pain MUSCULOSKELETAL: Absent: myalgia, arthralgia, joint swelling, back pain, neck pain SKIN: Absent: rash, itching, pallor HEMATOLOGIC/IMMUNOLOGIC: Absent: easy bleeding, easy bruising, lymphadenopathy, frequent infections ENDOCRINE: Absent: unexplained weight gain, unexplained weight loss, heat intolerance, cold intolerance NEUROLOGIC: Absent: headache, focal weakness or paresthesias, dizziness, unsteady gait, seizure, mental status changes, bladder or bowel incontinence PSYCHIATRIC: Absent: anxiety, depression, suicidal or homicidal ideation, hallucinations. PHYSICAL EXAMINATION Vital Signs - 24 hr 05/14/16 05/14/16 20:20 21:55 Pulse Rate [ 129 H 128 H Radial] Respiratory 32 H 27 H Rate Blood Pressure 101/42 112/69 [Left] O2 Sat by Pulse 96 100 Oximetry (%) GENERAL: lethargic, moderate distress HEAD: NC/AT EYES: PERRLA, EOMI, sclera anicteric, conjunctiva clear. No lid lag. EARS, NOSE, THROAT: Dry mucous membranes. NECK: Normal ROM, supple without lymphadenopathy, JVD, or masses. LUNGS: Breath sounds equal, CTA bilaterally. No wheezes, and no crackles. No accessory muscle use. HEART: RRR, normal S1 and S2 without murmur, rub or gallop. ABDOMEN: Soft,obese, NT/ND, normoactive bowel sounds, no guarding, no rebound, no masses. No hepatomegaly or splenomegaly. MUSCULOSKELETAL: Normal ROM all joints. No bony deformities or tenderness. No CVA tenderness. UPPER EXTREMITIES: 2+ pulses, warm, well-perfused. No cyanosis. No clubbing. No peripheral edema. LOWER EXTREMITIES: 2+ pulses, warm, well-perfused. No calf tenderness. No peripheral edema. NEUROLOGICAL: lethargic, gait not observed. PSYCHIATRIC: anxious SKIN: Warm, dry, normal turgor, no rashes or lesions noted. Laboratory Results - last 24 hr 05/14/16 05/14/16 20:50 21:00 Sodium 128 L D Potassium 5.1 D Chloride 93 L D Carbon Dioxide 4 L D Anion Gap 31 H BUN 66 H Creatinine 1.7 H Creat Clearance w eGFR 36.33 Random Glucose 1021 H* Calcium 7.5 L Total Bilirubin 0.7 AST 19 ALT 20 Alkaline Phosphatase 134 H Total Protein 5.5 L Albumin 2.8 L Urine Color Colorless Urine Appearance Clear Urine pH 5.0 Ur Specific Organ 1.018 Urine Protein Negative Urine Glucose (UA) 3+ H Urine Ketones 2+ H Urine Blood 1+ H Urine Nitrite Negative Urine Bilirubin Negative Urine Urobilinogen Negative Ur Leukocyte Esterase Negative ASSESSMENT/PLAN: 25 yo F, with PMH of IDDM requiring several hospitalizations for hyperglycemia, gastroparesis, frequent UTI, anxiety and depression admitted to ICU for management of DKA. Problem List - Problem (1) DKA (diabetic ketoacidosis) Assessment/Plan: * Admission to ICU * Insulin Drip @ 0.1mg/kg/h * IVF of NS @ 200ml/hr with sodium Bicarb 100mmol * Repeat CMP Q2h * Once glucose drops below 250 will switch fluids to D5 1/2NS (2) Insulin dependent diabetes mellitus Assessment/Plan: * Once gap is closed can be placed on RISS ACHS * BGM ACHS * ADA diet. (3) Gastroparesis (4) DVT prophylaxis Assessment/Plan: * Heparin 5000 units SQ Visit type - Emergency Visit Emergency Visit: Yes ED Registration Date: 05/14/16 Care time: The patient presented to the Emergency Department on the above date and was hospitalized for further evaluation of their emergent condition. - New Patient This patient is new to me today: Yes Date on this admission: 05/15/16 - Critical Care Critical Care patient: Yes Total Critical Care Time (in minutes): 65 Critical Care Statement: The care of this patient involved high complexity decision making to prevent further life threatening deterioration of the patient 's condition and/or to evalute & treat vital organ system(s) failure or risk of failure.
[2016-05-14] MEDS ORDERED: SODIUM BICARBONATE 8.4% 50 MEQ/50 ML VIAL IV SCH (22:15)
[2016-05-14 22:34] LABS: URINE BACTERIA RARE /hpf (NONE SEEN); URINE RBC <1 /hpf (0-3); URINE WBC 1 /hpf (3-5)
[2016-05-14] MEDS ORDERED: SODIUM CHLORIDE 1,000 ML IV SCH (23:45)
--- NOTE | 2016-05-14 23:45 | CONSULT ---
Consult Consult Specialty:: Pulm/CCM Reason for Consultation:: DKA - History of Present Illness Chief Complaint: nausea, vomiting History of Present Illness: This is 26 yo woman active tobacco with poorly controlled IDDM, gastroparesis with frequent admissions for DKA who presented with n/v x2 days w/o insulin. In the ED she was found to have elevated blood glucose (1105), (+) ketones, leukocytosis (40), OLEG (SCr 1.8) and metabolic disarray: Na 115 (corrected:131) , K 7.1, Bicarb: 6 w/ A. ABG: pH 7.07. CXR: clear. Negative beta HCG. U/A neg LE/N. Insulin drip was started. IV fluids with sodium bicarb. - History Source History Provided By: Patient, Medical Record Limitations to Obtaining History: Poor Historian - Past Medical History Gastrointestinal: Yes: Constipation, Pancreatitis, Other (Diabetic Gastroparesis ) ...LMP: 03/07/16 Psych: Yes: Anxiety, Depression Endocrine: Yes: Diabetes Mellitus (type 1), Other (dka) - Past Surgical History Past Surgical History: Yes: Upper Endoscopy (spring diabetic gastroparesis) - Alcohol/Substance Use Hx Alcohol Use: No History of Substance Use: reports: Marijuana - Smoking History Smoking history: Current every day smoker Have you smoked in the past 12 months: Yes Aproximately how many cigarettes per day: 10 - Social History ADL: Independent 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 History of Recent Travel: No Home Medications - Allergies Allergies/Adverse Reactions: Allergies Allergy/AdvReac Type Severity Reaction Status Date / Time No Known Allergies Allergy Verified 05/14/16 17:56 - Home Medications Home Medications: Ambulatory Orders Insulin Lispro [Humalog] 0 unit SQ ASDIR 07/18/13 Amitriptyline HCl [Elavil -] 3 tab PO DAILY #0 06/27/15 Acetaminophen [Tylenol] 650 mg PO Q4H PRN #20 tablet 01/17/16 Metoclopramide HCl [Reglan] 10 mg PO Q6H PRN #15 tablet 01/17/16 Ranitidine HCl [Zantac] 150 mg PO BID PRN #20 tablet 01/17/16 Insulin (Levemir) [Levemir Vial] 15 units SQ BIDAC #12 ml 12/27/16 Valacyclovir HCl [Valtrex -] 500 mg PO BID #10 tablet 03/03/16 Family Disease History - Family Disease History Family Disease History: Diabetes: Grandparent, Other: Father (healthy and living ), Mother (healthy and living) Review of Systems - Review of Systems Respiratory: reports: SOB Gastrointestinal: reports: Nausea, Vomiting Genitourinary: reports: Frequency (increased) Neurological: reports: No Symptoms Physical Exam Vital Signs: Vital Signs Temperature 98.7 F 05/14/16 17:57 Pulse Rate 130 H 05/14/16 22:20 Respiratory Rate 32 H 05/14/16 22:20 Blood Pressure 112/67 05/14/16 22:20 O2 Sat by Pulse Oximetry (%) 100 05/14/16 22:22 Current Medications Chlorhexidine Gluconate (Hibiclens For Decolonization -) 1 applic TP HS KARLENE Heparin Sodium (Porcine) (Heparin -) 5,000 unit SQ BID KARLENE Insulin Human Regular 100 (units/ Sodium Chloride) 100 mls @ 6.8 mls/hr IVPB TITR KARLENE; 0.1 UNITS/KG/HR PRN Reason: Protocol Last Admin: 05/14/16 20:19 Dose: 6.8 mls/hr Sodium Bicarbonate 100 meq/ (Sodium Chloride) 1,100 mls @ 90 mls/hr IV Q12H KARLENE Stop: 05/15/16 22:29 Mupirocin (Bactroban Ointment (For Decolonization) -) 1 applic NS BID KARLENE Stop: 05/19/16 21:59 Constitutional: Yes: Well Nourished, Calm Eyes: Yes: EOM Intact Cardiovascular: Yes: Regular Rate and Rhythm, S1, S2 Respiratory: Yes: CTA Bilaterally Gastrointestinal: Yes: Normal Bowel Sounds, Soft, Abdomen, Obese Extremities: Yes: WNL Edema: No Integumentary: Yes: WNL Neurological: Yes: Alert, Oriented Labs: CBCD WBC 40.2 K/mm3 (4.0-10.0) H* D 05/14/16 18:06 RBC 3.76 M/mm3 (3.60-5.2) 05/14/16 18:06 Hgb 11.4 GM/dL (10.7-15.3) D 05/14/16 18:06 Hct 39.7 % (32.4-45.2) 05/14/16 18:06 MCV 105.5 fl (80-96) H 05/14/16 18:06 MCHC 28.7 g/dl (32.0-36.0) L 05/14/16 18:06 RDW 15.4 % (11.6-15.6) D 05/14/16 18:06 Plt Count 422 K/MM3 (134-434) 05/14/16 18:06 MPV 9.3 fl (7.5-11.1) D 05/14/16 18:06 CMP Sodium 128 mmol/L (136-145) L D 05/14/16 20:50 Potassium 5.1 mmol/L (3.5-5.1) D 05/14/16 20:50 Chloride 93 mmol/L (98-107) L D 05/14/16 20:50 Carbon Dioxide 4 mmol/L (21-32) L D 05/14/16 20:50 Anion Gap 31 (8-16) H 05/14/16 20:50 BUN 66 mg/dL (7-18) H 05/14/16 20:50 Creatinine 1.7 mg/dL (0.55-1.02) H 05/14/16 20:50 Creat Clearance w eGFR 36.33 (>60) 05/14/16 20:50 Random Glucose 1021 mg/dL (74-106) H* 05/14/16 20:50 Calcium 7.5 mg/dL (8.5-10.1) L 05/14/16 20:50 Total Bilirubin 0.7 mg/dL (0.2-1.0) 05/14/16 20:50 AST 19 U/L (15-37) 05/14/16 20:50 ALT 20 U/L (12-78) 05/14/16 20:50 Alkaline Phosphatase 134 U/L (45-117) H 05/14/16 20:50 Total Protein 5.5 g/dl (6.4-8.2) L 05/14/16 20:50 Albumin 2.8 g/dl (3.4-5.0) L 05/14/16 20:50 CARDIAC ENZYMES Creatine Kinase 75 IU/L (26-192) 05/14/16 18:06 Troponin I < 0.02 ng/ml (0.00-0.05) 05/14/16 18:06 Urine Test Results Urine Color Colorless 05/14/16 21:00 Urine Appearance Clear 05/14/16 21:00 Urine pH 5.0 (5.0-8.0) 05/14/16 21:00 Ur Specific [place] 1.018 (1.001-1.035) 05/14/16 21:00 Urine Protein Negative (NEGATIVE) 05/14/16 21:00 Urine Glucose (UA) 3+ (NEGATIVE) H 05/14/16 21:00 Urine Ketones 2+ (NEGATIVE) H 05/14/16 21:00 Urine Blood 1+ (NEGATIVE) H 05/14/16 21:00 Urine Nitrite Negative (NEGATIVE) 05/14/16 21:00 Urine Bilirubin Negative (NEGATIVE) 05/14/16 21:00 Ur Leukocyte Esterase Negative (NEGATIVE) 05/14/16 21:00 Urine RBC <1 /hpf (0-3) 05/14/16 21:00 Urine WBC 1 /hpf (3-5) 05/14/16 21:00 Urine Bacteria Rare /hpf (NONE SEEN) 05/14/16 21:00 ABG Results ABG pH 7.07 (7.35-7.45) L* D 05/14/16 19:10 ABG pCO2 at Pt Temp 10.9 mmHg (35-45) L* D 05/14/16 19:10 ABG pO2 at Pt Temp 125.0 mmHg (80-100) H 05/14/16 19:10 ABG HCO3 3.0 meq/L (22-26) L* 05/14/16 19:10 ABG O2 Sat (Measured) 95.9 % (90-98.9) 05/14/16 19:10 ABG O2 Content 13.1 % vol (15-22) L 05/14/16 19:10 ABG Base Excess -26.4 meq/l (-2-2) L* 05/14/16 19:10 Laboratory Tests 05/14/16 05/14/16 18:06 21:37 Serum , Qual Negative Acetone, Qual Positive large 3+ H Imaging - Results Chest X-ray: Report Reviewed, Image Reviewed Problem List - Problems (1) DKA (diabetic ketoacidosis) Code(s): E13.10 - OTH DIABETES MELLITUS WITH KETOACIDOSIS WITHOUT COMA Qualifiers: Diabetes mellitus type: type 1 Diabetes mellitus complication detail: without coma Qualified Code(s): E10.10 - Type 1 diabetes mellitus with ketoacidosis without coma (2) Leukemoid reaction Code(s): D72.823 - LEUKEMOID REACTION (3) Insulin dependent diabetes mellitus Code(s): E11.9 - TYPE 2 DIABETES MELLITUS WITHOUT COMPLICATIONS Z79.4 - CONVERSION DEVELOPER (CURRENT) USE OF INSULIN (4) Epigastric abdominal pain Code(s): R10.13 - EPIGASTRIC PAIN (5) Gastroparesis due to DM Code(s): E11.43 - TYPE 2 DIABETES W DIABETIC AUTONOMIC (POLY)NEUROPATHY K31.84 - GASTROPARESIS (6) Nausea & vomiting Code(s): R11.2 - NAUSEA WITH VOMITING, UNSPECIFIED Assessment/Plan a/p: 26 yo woman with DKA, metabolic dyssary, dehydration, leukocytosis (WBC 40 , 11% bands) likely leukemoid but c/f sepsis: gastritis vs pancreatitis, ( negative u/a and clear CXR) -endocrine consult -will hold off on ABX at this time but low threshold for ABX: zosyn -miller culture -add on amylase/lipase to r/o pancreatitis -IV fluids will stop bicarb and give NS to better asses AG -Q2-4 BMP -insulin drip: 0.1 units/kg/hr --if serum glucose does not drop 50-70mg/dL per hr double insulin --fingersticks q1hr --Once serum glucose <250 mg/dL add D5 to IVF with goal to maintain serum glucose 150-200 (notify provider if BS <150) -Potassium replacement as follows per liter of fluid --K <3 mEq/L 40-80 mEq --K 3.1-3.4 40-60 mEq --K 3.5-3.9 20-40 mEq --K 4-5 20 mEq --K >5.5 no potassium replacement -PO diet as tolerated in AM -transition to SQ once AG closed [place] ACNP Pulm/CCM CCT: 35m
[2016-05-15 00:02] LABS: ALBUMIN 1.8 g/dl (3.4-5.0); ANION GAP 18 (8-16); CO2 13 mmol/L (21-32)
[2016-05-15 00:05] LABS: ALK PHOS 73 U/L (45-117); BILIRUBIN,TOTAL 0.4 mg/dL (0.2-1.0); CREATININE 0.8 mg/dL (0.55-1.02); SGPT/ALT 10 U/L (12-78); TOT PROT 3.7 g/dl (6.4-8.2)
[2016-05-15 00:14] LABS: GLUCOSE,RANDOM 383 mg/dL (74-106); SGOT/AST 10 U/L (15-37)
[2016-05-15 00:46] LABS: CALCIUM < 7.0 mg/dL (8.5-10.1)
[2016-05-15] MEDS: HEPARIN NA (PORCINE) 5,000 UNITS/ML 1ML VIAL SQ SCH ×3 (01:00→21:16)
[2016-05-15] MEDS: MUPIROCIN 2% TOPICAL OINTMENT FOR DECOLONIZATION NS SCH ×3 (01:20→21:16)
[2016-05-15 01:54] VITALS: BMI 26.1
[2016-05-15] MEDS ORDERED: SODIUM CHLORIDE 1,000 ML IV STA (02:11)
[2016-05-15 02:12] LABS: MCH 30.9 pg (25.7-33.7); MCHC 33.2 g/dl (32.0-36.0); MEAN CELL VOLUME 93.1 fl (80-96); MEAN PLT VOLUME 8.6 fl (7.5-11.1); PLATELET COUNT 348 K/MM3 (134-434); RDW 14.5 % (11.6-15.6)
[2016-05-15] MEDS ORDERED: D5-1/2NS+40 MEQ KCL - 1,000 ML IV SCH (02:15)
[2016-05-15 02:22] LABS: WHITE BLOOD COUNT 34.7 K/mm3 (4.0-10.0)
[2016-05-15 02:24] LABS: BILIRUBIN,TOTAL 0.6 mg/dL (0.2-1.0); CALCIUM 7.6 mg/dL (8.5-10.1); CREATININE 1.2 mg/dL (0.55-1.02); TOT PROT 5.8 g/dl (6.4-8.2)
[2016-05-15 02:32] LABS: AMYLASE 42 U/L (25-115)
[2016-05-15 03:31] LABS: ANISOCYTOSIS 1+; HYPOCHROMIA 1+; PLATELET COMMENT2 NO CLOTTING DETECTED; PLATELET ESTIMATE ADEQUATE (NORMAL)
[2016-05-15 06:15] LABS: ALBUMIN 2.8 g/dl (3.4-5.0); ALK PHOS 107 U/L (45-117); ANION GAP 9 (8-16); BILIRUBIN,TOTAL 0.4 mg/dL (0.2-1.0); CALCIUM 7.3 mg/dL (8.5-10.1); CO2 19 mmol/L (21-32); GLUCOSE,RANDOM 233 mg/dL (74-106); SGOT/AST 14 U/L (15-37); SGPT/ALT 19 U/L (12-78); TOT PROT 5.5 g/dl (6.4-8.2)
[2016-05-15 06:21] LABS: MAGNESIUM 1.9 mg/dL (1.8-2.4); PHOSPHOROUS 1.6 mg/dL (2.5-4.9)
[2016-05-15 06:34] LABS: TROPONIN I 0.58 ng/ml (0.00-0.05)
[2016-05-15] MEDS ORDERED: INSULIN DETEMIR 100 UNITS/ML MDV SQ ONE ×4 (07:26→22:00)
[2016-05-15 07:32] LABS: ALLENS TEST POSITIVE; ARTERIAL BLD GAS O2 SATURATION 97.7 % (90-98.9); ARTERIAL BLOOD GAS BASE EXCESS -6.9 meq/l (-2-2); ARTERIAL BLOOD GAS HCO3 17.9 meq/L (22-26); ARTERIAL BLOOD GAS PO2 96.3 mmHg (80-100)
[2016-05-15 07:33] LABS: ART PUNCT SITE RIGHT RADIAL; ARTERIAL BLOOD GAS pH 7.32 (7.35-7.45); LPM/O2% 21%; PT. ON O2? NO; TYPE OF O2 ROOM AIR
[2016-05-15] MEDS: SODIUM CHLORIDE 0.45% 1,000 ML IV SCH ×2 (07:41→18:20)
--- NOTE | 2016-05-15 09:44 | EKG ---
Test Reason : Blood Pressure : / mmHG Vent. Rate : 122 BPM Atrial Rate : 122 BPM P-R Int : 130 ms QRS Dur : 070 ms QT Int : 294 ms P-R-T Axes : 045 014 065 degrees QTc Int : 418 ms SINUS TACHYCARDIA NONSPECIFIC T WAVE ABNORMALITY Confirmed by TERRY SCHILLING MD ([id number]) on 05/15/2016 9:44:03 AM Referred By: FARIDA BRADEN Confirmed By:TERRY SCHILLING MD
--- NOTE | 2016-05-15 09:59 | EKG ---
Test Reason : Blood Pressure : / mmHG Vent. Rate : 129 BPM Atrial Rate : 129 BPM P-R Int : 142 ms QRS Dur : 088 ms QT Int : 318 ms P-R-T Axes : 053 026 033 degrees QTc Int : 465 ms AGE AND GENDER SPECIFIC ECG ANALYSIS SINUS TACHYCARDIA POSSIBLE LEFT ATRIAL ENLARGEMENT ST ELEVATION CONSIDER ANTERIOR INJURY OR ACUTE INFARCT ACUTE MO / STEMI ABNORMAL ECG WHEN COMPARED WITH ECG OF 01-APR-2016 14:10, QRS DURATION HAS INCREASED MINIMAL CRITERIA FOR ANTERIOR INFARCT ARE NO LONGER PRESENT ST NOW DEPRESSED IN INFERIOR LEADS T WAVE AMPLITUDE HAS INCREASED IN ANTEROLATERAL LEADS Confirmed by TERRY SCHILLING MD ([id number]) on 05/15/2016 9:59:00 AM Referred By: Confirmed By:TERRY SCHILLING MD
[2016-05-15] MEDS: INSULIN SLIDING SCALE (NOVOLOG) 1 VIAL SQ SCH ×3 (11:14→21:17)
--- NOTE | 2016-05-15 11:48 | PN ---
Teaching Attending Note Name of Resident: Elizabet Bear ATTENDING PHYSICIAN STATEMENT I saw and evaluated the patient. I reviewed the resident's note and discussed the case with the resident. I agree with the resident's findings and plan as documented. SUBJECTIVE: Patient seen and examined in the ICU. Awake and alert. Denies CP or SOB. Minimal dry cough. Off insulin drip. Intake & Output 05/12/16 05/13/16 05/14/16 05/15/16 23:59 23:59 23:59 23:59 Intake Total 1999 1994.8 Output Total 2249 Balance 1999 -254.2 Weight 152 lb 1.903 oz 152 lb 1.903 oz Last Vital Signs Temp Pulse Resp BP Pulse Ox 97.4 F L 126 H 14 157/80 98 05/15/16 10:00 05/15/16 10:00 05/15/16 10:00 05/15/16 10:00 05/15/16 08:00 Active Medications Chlorhexidine Gluconate (Hibiclens For Decolonization -) 1 applic TP HS FOR[facility]LY [facility], 1928–1983 Last Admin: 05/15/16 01:30 Dose: Not Given Heparin Sodium (Porcine) (Heparin -) 5,000 unit SQ BID [facility], [facility]1983 Last Admin: 05/15/16 09:26 Dose: 5,000 unit Sodium Chloride (1/2 Normal Saline) 1,000 mls @ 75 mls/hr IV ASDIR [facility], [facility]–1983 Last Admin: 05/15/16 07:41 Dose: 75 mls/hr Insulin Aspart (Novolog Vial Sliding Scale -) 1 vial SQ ACHS [facility], [facility]–1983 PRN Reason: Protocol Last Admin: 05/15/16 11:14 Dose: 8 units Insulin Detemir (Levemir Vial) 25 units SQ ONCE ONE Stop: 05/15/16 22:01 Insulin Detemir (Levemir Vial) 50 units SQ HS [facility], [facility]–1983 Mupirocin (Bactroban Ointment (For Decolonization) -) 1 applic NS BID [facility], [facility]1983 Stop: 05/19/16 21:59 Last Admin: 05/15/16 11:23 Dose: 1 applic Constitutional: Yes: Awake and alert, NAD Eyes: Yes: EOM Intact Cardiovascular: Yes: Regular Rate and Rhythm, S1, S2 Respiratory: Yes: CTA Bilaterally Gastrointestinal: Yes: Normal Bowel Sounds, Soft, Abdomen, Obese Extremities: Yes: WNL Edema: No Integumentary: Yes: WNL Neurological: Yes: Alert, Oriented Labs: Laboratory Results - last 24 hr 05/14/16 05/14/16 05/14/16 17:51 18:06 18:06 WBC 40.2 H* D RBC 3.76 Hgb 11.4 D Hct 39.7 MCV 105.5 H MCHC 28.7 L RDW 15.4 D Plt Count 422 MPV 9.3 D Neutrophils % 83.0 H Lymphocytes % 3.0 L D Monocytes % 3.0 L Band Neutrophils 11.0 H D Myelocytes 1 Differential Comment Manual diff done Platelet Estimate Adequate Platelet Comment Few giant plts Hypochromic-Microcytic Anisocytosis Macrocytosis 2+ Morphology Comment Slide scanned Puncture Site ABG pH ABG pCO2 at Pt Temp ABG pO2 at Pt Temp ABG HCO3 ABG O2 Sat (Measured) ABG O2 Content ABG Base Excess Jase Test Carboxyhemoglobin Methemoglobin O2 Delivery Device Oxygen Flow Rate PEEP Sodium 115 L* D Potassium 7.1 H* D Chloride 79 L D Carbon Dioxide 6 L D Anion Gap 30 H BUN 59 H D Creatinine 1.8 H D Creat Clearance w eGFR 34.01 POC Glucometer > 400 Random Glucose 1106 H* Lactic Acid Calcium 8.2 L Phosphorus Magnesium Total Bilirubin 0.8 D AST 19 D ALT 21 D Alkaline Phosphatase 151 H Creatine Kinase 75 Creatine Kinase Index CK-MB (CK-2) Troponin I < 0.02 Total Protein 6.7 Albumin 3.5 Total Amylase Lipase Serum , Qual Urine Color Urine Appearance Urine pH Ur Specific [place] Urine Protein Urine Glucose (UA) Urine Ketones Urine Blood Urine Nitrite Urine Bilirubin Urine Urobilinogen Ur Leukocyte Esterase Urine RBC Urine WBC Urine Bacteria Urine HCG, Qual Acetone, Qual Positive large 3+ H 05/14/16 05/14/16 05/14/16 18:15 19:10 20:50 WBC RBC Hgb Hct MCV MCHC RDW Plt Count MPV Neutrophils % Lymphocytes % Monocytes % Band Neutrophils Myelocytes Differential Comment Platelet Estimate Platelet Comment Hypochromic-Microcytic Anisocytosis Macrocytosis Morphology Comment Puncture Site Right radial ABG pH 7.07 L* D ABG pCO2 at Pt Temp 10.9 L* D ABG pO2 at Pt Temp 125.0 H ABG HCO3 3.0 L* ABG O2 Sat (Measured) 95.9 ABG O2 Content 13.1 L ABG Base Excess -26.4 L* Jase Test Positive Carboxyhemoglobin 1.9 Methemoglobin 1.3 O2 Delivery Device Oxygen Flow Rate 21% PEEP 0.0 Sodium 128 L D Potassium 5.1 D Chloride 93 L D Carbon Dioxide 4 L D Anion Gap 31 H BUN 66 H Creatinine 1.7 H Creat Clearance w eGFR 36.33 POC Glucometer Random Glucose 1021 H* Lactic Acid Calcium 7.5 L Phosphorus Magnesium Total Bilirubin 0.7 AST 19 ALT 20 Alkaline Phosphatase 134 H Creatine Kinase Creatine Kinase Index CK-MB (CK-2) Troponin I Total Protein 5.5 L Albumin 2.8 L Total Amylase Lipase Serum , Qual Urine Color Ltyellow Urine Appearance Cloudy Urine pH 5.0 Ur Specific [place] 1.020 Urine Protein Negative Urine Glucose (UA) 3+ H Urine Ketones 2+ H Urine Blood Negative Urine Nitrite Negative Urine Bilirubin Negative Urine Urobilinogen Negative Ur Leukocyte Esterase Negative Urine RBC Urine WBC Urine Bacteria Urine HCG, Qual Acetone, Qual 05/14/16 05/14/16 05/14/16 21:00 21:37 21:37 WBC RBC Hgb Hct MCV MCHC RDW Plt Count MPV Neutrophils % Lymphocytes % Monocytes % Band Neutrophils Myelocytes Differential Comment Platelet Estimate Platelet Comment Hypochromic-Microcytic Anisocytosis Macrocytosis Morphology Comment Puncture Site ABG pH ABG pCO2 at Pt Temp ABG pO2 at Pt Temp ABG HCO3 ABG O2 Sat (Measured) ABG O2 Content ABG Base Excess Jase Test Carboxyhemoglobin Methemoglobin O2 Delivery Device Oxygen Flow Rate PEEP Sodium Potassium Chloride Carbon Dioxide Anion Gap BUN Creatinine Creat Clearance w eGFR POC Glucometer Random Glucose Lactic Acid Calcium Phosphorus Magnesium Total Bilirubin AST ALT Alkaline Phosphatase Creatine Kinase Creatine Kinase Index CK-MB (CK-2) Troponin I Total Protein Albumin Total Amylase Lipase Serum , Qual Negative Urine Color Colorless Urine Appearance Clear Urine pH 5.0 Ur Specific [place] 1.018 Urine Protein Negative Urine Glucose (UA) 3+ H Urine Ketones 2+ H Urine Blood 1+ H Urine Nitrite Negative Urine Bilirubin Negative Urine Urobilinogen Negative Ur Leukocyte Esterase Negative Urine RBC <1 Urine WBC 1 Urine Bacteria Rare Urine HCG, Qual Negative Acetone, Qual 05/14/16 05/14/16 05/15/16 22:07 23:20 01:15 WBC RBC Hgb Hct MCV MCHC RDW Plt Count MPV Neutrophils % Lymphocytes % Monocytes % Band Neutrophils Myelocytes Differential Comment Platelet Estimate Platelet Comment Hypochromic-Microcytic Anisocytosis Macrocytosis Morphology Comment Puncture Site ABG pH ABG pCO2 at Pt Temp ABG pO2 at Pt Temp ABG HCO3 ABG O2 Sat (Measured) ABG O2 Content ABG Base Excess Jase Test Carboxyhemoglobin Methemoglobin O2 Delivery Device Oxygen Flow Rate PEEP Sodium 152 H D 143 Potassium 3.3 L D 4.6 D Chloride 121 H D 112 H Carbon Dioxide 13 L D 12 L Anion Gap 18 H 19 H BUN 40 H D 52 H D Creatinine 0.8 D 1.2 H D Creat Clearance w eGFR > 60 54.30 POC Glucometer > 400 Random Glucose 383 H* D 360 H* Lactic Acid Calcium < 7.0 L* 7.6 L Phosphorus Magnesium Total Bilirubin 0.4 D 0.6 D AST 10 L D 16 D ALT 10 L D 19 D Alkaline Phosphatase 73 D 118 H D Creatine Kinase Creatine Kinase Index CK-MB (CK-2) Troponin I Total Protein 3.7 L D 5.8 L D Albumin 1.8 L D 3.0 L D Total Amylase Lipase Serum , Qual Urine Color Urine Appearance Urine pH Ur Specific [place] Urine Protein Urine Glucose (UA) Urine Ketones Urine Blood Urine Nitrite Urine Bilirubin Urine Urobilinogen Ur Leukocyte Esterase Urine RBC Urine WBC Urine Bacteria Urine HCG, Qual Acetone, Qual 05/15/16 05/15/16 05/15/16 01:15 01:15 01:18 WBC 34.7 H* RBC 3.23 L Hgb 10.0 L D Hct 30.1 L D MCV 93.1 MCHC 33.2 RDW 14.5 Plt Count 348 MPV 8.6 Neutrophils % 89.0 H Lymphocytes % 7.0 L D Monocytes % 1.0 L Band Neutrophils 3.0 D Myelocytes Differential Comment Platelet Estimate Adequate Platelet Comment No clotting detected Hypochromic-Microcytic 1+ Anisocytosis 1+ Macrocytosis Morphology Comment Puncture Site ABG pH ABG pCO2 at Pt Temp ABG pO2 at Pt Temp ABG HCO3 ABG O2 Sat (Measured) ABG O2 Content ABG Base Excess Jase Test Carboxyhemoglobin Methemoglobin O2 Delivery Device Oxygen Flow Rate PEEP Sodium Potassium Chloride Carbon Dioxide Anion Gap BUN Creatinine Creat Clearance w eGFR POC Glucometer > 400 Random Glucose Lactic Acid Calcium Phosphorus Magnesium Total Bilirubin AST ALT Alkaline Phosphatase Creatine Kinase Creatine Kinase Index CK-MB (CK-2) Troponin I Total Protein Albumin Total Amylase 42 Lipase 42 L Serum , Qual Urine Color Urine Appearance Urine pH Ur Specific [place] Urine Protein Urine Glucose (UA) Urine Ketones Urine Blood Urine Nitrite Urine Bilirubin Urine Urobilinogen Ur Leukocyte Esterase Urine RBC Urine WBC Urine Bacteria Urine HCG, Qual Acetone, Qual 05/15/16 05/15/16 05/15/16 02:00 02:01 03:00 WBC RBC Hgb Hct MCV MCHC RDW Plt Count MPV Neutrophils % Lymphocytes % Monocytes % Band Neutrophils Myelocytes Differential Comment Platelet Estimate Platelet Comment Hypochromic-Microcytic Anisocytosis Macrocytosis Morphology Comment Puncture Site ABG pH ABG pCO2 at Pt Temp ABG pO2 at Pt Temp ABG HCO3 ABG O2 Sat (Measured) ABG O2 Content ABG Base Excess Jase Test Carboxyhemoglobin Methemoglobin O2 Delivery Device Oxygen Flow Rate PEEP Sodium Potassium Chloride Carbon Dioxide Anion Gap BUN Creatinine Creat Clearance w eGFR POC Glucometer [phone] Random Glucose Lactic Acid 0.952 Calcium Phosphorus Magnesium Total Bilirubin AST ALT Alkaline Phosphatase Creatine Kinase Creatine Kinase Index CK-MB (CK-2) Troponin I Total Protein Albumin Total Amylase Lipase Serum , Qual Urine Color Urine Appearance Urine pH Ur Specific [place] Urine Protein Urine Glucose (UA) Urine Ketones Urine Blood Urine Nitrite Urine Bilirubin Urine Urobilinogen Ur Leukocyte Esterase Urine RBC Urine WBC Urine Bacteria Urine HCG, Qual Acetone, Qual 05/15/16 05/15/16 05/15/16 04:05 05:00 05:00 WBC RBC Hgb Hct MCV MCHC RDW Plt Count MPV Neutrophils % Lymphocytes % Monocytes % Band Neutrophils Myelocytes Differential Comment Platelet Estimate Platelet Comment Hypochromic-Microcytic Anisocytosis Macrocytosis Morphology Comment Puncture Site ABG pH ABG pCO2 at Pt Temp ABG pO2 at Pt Temp ABG HCO3 ABG O2 Sat (Measured) ABG O2 Content ABG Base Excess Jase Test Carboxyhemoglobin Methemoglobin O2 Delivery Device Oxygen Flow Rate PEEP Sodium 144 Potassium 4.3 Chloride 116 H Carbon Dioxide 19 L D Anion Gap 9 BUN 35 H D Creatinine 1.0 Creat Clearance w eGFR > 60 POC Glucometer [phone] Random Glucose 233 H D Lactic Acid Calcium 7.3 L Phosphorus 1.6 L D Magnesium 1.9 Total Bilirubin 0.4 D AST 14 L ALT 19 Alkaline Phosphatase 107 Creatine Kinase 428 H D Creatine Kinase Index 2.3 CK-MB (CK-2) 9.798 H Troponin I 0.58 H Total Protein 5.5 L Albumin 2.8 L Total Amylase Lipase Serum , Qual Urine Color Urine Appearance Urine pH Ur Specific [place] Urine Protein Urine Glucose (UA) Urine Ketones Urine Blood Urine Nitrite Urine Bilirubin Urine Urobilinogen Ur Leukocyte Esterase Urine RBC Urine WBC Urine Bacteria Urine HCG, Qual Acetone, Qual 05/15/16 05/15/16 05/15/16 05:17 06:50 07:24 WBC RBC Hgb Hct MCV MCHC RDW Plt Count MPV Neutrophils % Lymphocytes % Monocytes % Band Neutrophils Myelocytes Differential Comment Platelet Estimate Platelet Comment Hypochromic-Microcytic Anisocytosis Macrocytosis Morphology Comment Puncture Site Right radial ABG pH 7.32 L D ABG pCO2 at Pt Temp 35.5 D ABG pO2 at Pt Temp 96.3 D ABG HCO3 17.9 L ABG O2 Sat (Measured) 97.7 ABG O2 Content 13.5 L ABG Base Excess -6.9 L Jase Test Positive Carboxyhemoglobin Methemoglobin O2 Delivery Device Room air Oxygen Flow Rate 21% PEEP 0.0 Sodium Potassium Chloride Carbon Dioxide Anion Gap BUN Creatinine Creat Clearance w eGFR POC Glucometer [phone] Random Glucose Lactic Acid Calcium Phosphorus Magnesium Total Bilirubin AST ALT Alkaline Phosphatase Creatine Kinase Creatine Kinase Index CK-MB (CK-2) Troponin I Total Protein Albumin Total Amylase Lipase Serum , Qual Urine Color Urine Appearance Urine pH Ur Specific [place] Urine Protein Urine Glucose (UA) Urine Ketones Urine Blood Urine Nitrite Urine Bilirubin Urine Urobilinogen Ur Leukocyte Esterase Urine RBC Urine WBC Urine Bacteria Urine HCG, Qual Acetone, Qual Problem List - Problems (1) DKA (diabetic ketoacidosis) Code(s): E13.10 - OTH DIABETES MELLITUS WITH KETOACIDOSIS WITHOUT COMA Qualifiers: Diabetes mellitus type: type 1 Diabetes mellitus complication detail: without coma Qualified Code(s): E10.10 - Type 1 diabetes mellitus with ketoacidosis without coma (2) Leukemoid reaction Code(s): D72.823 - LEUKEMOID REACTION (3) Insulin dependent diabetes mellitus Code(s): E11.9 - TYPE 2 DIABETES MELLITUS WITHOUT COMPLICATIONS Z79.4 - HALFWAY (CURRENT) USE OF INSULIN (4) Epigastric abdominal pain Code(s): R10.13 - EPIGASTRIC PAIN (5) Gastroparesis due to DM Code(s): E11.43 - TYPE 2 DIABETES W DIABETIC AUTONOMIC (POLY)NEUROPATHY K31.84 - GASTROPARESIS (6) Nausea & vomiting Code(s): R11.2 - NAUSEA WITH VOMITING, UNSPECIFIED Assessment/Plan IVF Insulin coverage O2 as needed Currently monitoring off ABX Follow cultures Follow BGM PO as tolerated Dr Thomas CCTime 35"
[2016-05-15 12:37] LABS: ALBUMIN 3.1 g/dl (3.4-5.0); BILIRUBIN,TOTAL 0.5 mg/dL (0.2-1.0); CALCIUM 7.6 mg/dL (8.5-10.1); CREATININE 1.4 mg/dL (0.55-1.02); TOT PROT 5.9 g/dl (6.4-8.2)
--- NOTE | 2016-05-15 15:56 | PN ---
Teaching Attending Note Name of Resident: Skip Ibarra ATTENDING PHYSICIAN STATEMENT I saw and evaluated the patient. I reviewed the resident's note and discussed the case with the resident. I agree with the resident's findings and plan as documented. SUBJECTIVE: seen at 9:30 am . felt tired, denies abd pain , or diarrhea , denied dysuria , or frequency . reports taking 50 units of lantus every evening OBJECTIVE: NAD , ill appearing, slightly dry MM CV : RRR Lungs: CTAB Ext : no edema , scab on R dorsal foot Abd : soft, NT, ND , NL BS ASSESSMENT AND PLAN: 26 y/o lady with h/o DM I , non compliance , DKAs, who presented with N/V/Abd pain and was found to have DKA. 1- DKA due to non compliance : anion gap closed. Sugar improved - bridged to levemir . - gave 25 unit sin am , will give [address] onhome dose 50 q HS tomorrow - SSI - cont IVF - start feeding 2- Leukocytosis : likely due to leukomoid reaction from stress. no source of infection meets SIRS criteria monitor off ABx follow blood , urine cx 3- Trop leak : likely demand ischemia . CKMb < 5% of total - trend till peak. - echo - hold off any anticoagulation , pending troponins - CArd consult 4- DVT px
--- NOTE | 2016-05-15 17:25 | PN ---
Physical Exam: SUBJECTIVE: Patient seen and examined in ICU. She appears weak and reluctant to talk but stated she's feeling better than earlier. Denied chest pain, fever, chills, sob , urinary and bowel sx. OBJECTIVE: Vital Signs Period Temp Pulse Resp BP Sys/Plata Pulse Ox Last 24 Hr 97.2 F-97.8 F 118-131 14-32 101-157/42-86 96-100 GENERAL: Appears weak and tired, AAO x 3 HEAD: AT, NC EYES: sclera anicteric EARS, NOSE, THROAT: moist mucus membrane NECK: Normal range of motion, supple without lymphadenopathy, JVD, or masses. LUNGS: CTAB HEART: RRR with no murmurs ABDOMEN: Soft, +bs, non-tender LOWER EXTREMITIES: no edema ABG Results ABG pH 7.32 (7.35-7.45) L D 05/15/16 07:24 ABG pCO2 at Pt Temp 35.5 mmHg (35-45) D 05/15/16 07:24 ABG pO2 at Pt Temp 96.3 mmHg (80-100) D 05/15/16 07:24 ABG HCO3 17.9 meq/L (22-26) L 05/15/16 07:24 ABG O2 Sat (Measured) 97.7 % (90-98.9) 05/15/16 07:24 ABG O2 Content 13.5 % vol (15-22) L 05/15/16 07:24 ABG Base Excess -6.9 meq/l (-2-2) L 05/15/16 07:24 CBCD WBC 34.7 K/mm3 (4.0-10.0) H* 05/15/16 01:15 RBC 3.23 M/mm3 (3.60-5.2) L 05/15/16 01:15 Hgb 10.0 GM/dL (10.7-15.3) L D 05/15/16 01:15 Hct 30.1 % (32.4-45.2) L D 05/15/16 01:15 MCV 93.1 fl (80-96) 05/15/16 01:15 MCHC 33.2 g/dl (32.0-36.0) 05/15/16 01:15 RDW 14.5 % (11.6-15.6) 05/15/16 01:15 Plt Count 348 K/MM3 (134-434) 05/15/16 01:15 MPV 8.6 fl (7.5-11.1) 05/15/16 01:15 CMP Sodium 143 mmol/L (136-145) 05/15/16 05:00 Potassium 4.6 mmol/L (3.5-5.1) 05/15/16 05:00 Chloride 112 mmol/L (98-107) H 05/15/16 05:00 Carbon Dioxide 12 mmol/L (21-32) L D 05/15/16 05:00 Anion Gap 19 (8-16) H 05/15/16 05:00 BUN 50 mg/dL (7-18) H D 05/15/16 05:00 Creatinine 1.4 mg/dL (0.55-1.02) H D 05/15/16 05:00 Creat Clearance w eGFR 45.45 (>60) 05/15/16 05:00 Calcium 7.6 mg/dL (8.5-10.1) L 05/15/16 05:00 Total Bilirubin 0.5 mg/dL (0.2-1.0) D 05/15/16 05:00 AST 17 U/L (15-37) D 05/15/16 05:00 ALT 19 U/L (12-78) 05/15/16 05:00 Alkaline Phosphatase 116 U/L (45-117) 05/15/16 05:00 Total Protein 5.9 g/dl (6.4-8.2) L 05/15/16 05:00 Albumin 3.1 g/dl (3.4-5.0) L 05/15/16 05:00 Intake & Output 05/12/16 05/13/16 05/14/16 05/15/16 23:59 23:59 23:59 23:59 Intake Total 1999 3684.4 Output Total 3950 Balance 1999 -265.6 Weight 69 kg 69 kg Active Medications Generic Name Dose Route Start Last Admin Trade Name Freq PRN Reason Stop Dose Admin Chlorhexidine Gluconate 1 applic 05/14/16 22:00 05/15/16 01:30 Hibiclens For Decolonization - TP Not Given HS KARLENE Heparin Sodium (Porcine) 5,000 unit 05/15/16 22:00 Heparin - SQ TID KARLENE Sodium Chloride 1,000 mls @ 75 mls/hr 05/15/16 07:30 05/15/16 07:41 1/2 Normal Saline IV 75 mls/hr ASDIR KARLENE Administration Insulin Aspart 1 vial 05/15/16 11:00 05/15/16 17:02 Novolog Vial Sliding Scale - SQ 4 units ACHS KARLENE Administration Protocol Insulin Detemir 25 units 05/15/16 22:00 Levemir Vial SQ 05/15/16 22:01 ONCE ONE Insulin Detemir 50 units 05/16/16 22:00 Levemir Vial SQ HS KARLENE Mupirocin 1 applic 05/14/16 22:00 05/15/16 11:23 Bactroban Ointment (For Decolonization) - NS 05/19/16 21:59 1 applic BID KARLENE Administration ASSESSMENT/PLAN: 26 yo F with h/o DM Type 1 on lantus and novolog and multiple admissions in the past for DKA admitted to the ICU for DKA and SIRS. Endo: DKA - Resolved, gap closed, blood glc normalizing - On levemir and sliding scale - Cont. to monitor glc and lytes ID: SIRS 2/2 leukomoid reaction - Observe off abx - Cont to monitor CBC FEN - Cont. 1/2 NS - Cont. to monitor lytes - Diabetic diet Prophylaxis - DVT: heparin SQ 5000 TID - GI: not indicated Disposition - Transfer to [facility]-surg Code status - Full code Visit type - Emergency Visit Emergency Visit: No - New Patient This patient is new to me today: Yes Date on this admission: 05/15/16 - Critical Care Critical Care patient: Yes Total Critical Care Time (in minutes): 35 Critical Care Statement: The care of this patient involved high complexity decision making to prevent further life threatening deterioration of the patient 's condition and/or to evalute & treat vital organ system(s) failure or risk of failure.
--- NOTE | 2016-05-15 17:53 | PN ---
Physical Exam: SUBJECTIVE: Patient seen and examined at bedside in ICU no complaints feels better OBJECTIVE: Vital Signs Period Temp Pulse Resp BP Sys/Plata Pulse Ox Last 24 Hr 97.2 F-97.8 F 118-131 14-32 101-157/42-86 96-100 GENERAL: The patient is orientated easily arousable. sleeping HEAD: Normal with no signs of trauma. EYES: PERRL, extraocular movements intact NECK: Trachea midline, full range of motion, supple. LUNGS: Breath sounds equal, clear to auscultation bilaterally HEART: tachycardia ABDOMEN: Soft, nontender, nondistended EXTREMITIES: warm, well-perfused NEUROLOGICAL: Cranial nerves II through XII grossly intact. Normal speech, gait not observed. Laboratory Results - last 24 hr 05/14/16 05/14/16 05/14/16 20:50 21:00 21:37 WBC RBC Hgb Hct MCV MCHC RDW Plt Count MPV Neutrophils % Lymphocytes % Monocytes % Band Neutrophils Platelet Estimate Platelet Comment Hypochromic-Microcytic Anisocytosis Puncture Site ABG pH ABG pCO2 at Pt Temp ABG pO2 at Pt Temp ABG HCO3 ABG O2 Sat (Measured) ABG O2 Content ABG Base Excess Jase Test O2 Delivery Device Oxygen Flow Rate PEEP Sodium 128 L D Potassium 5.1 D Chloride 93 L D Carbon Dioxide 4 L D Anion Gap 31 H BUN 66 H Creatinine 1.7 H Creat Clearance w eGFR 36.33 POC Glucometer Random Glucose 1021 H* Lactic Acid Calcium 7.5 L Phosphorus Magnesium Total Bilirubin 0.7 AST 19 ALT 20 Alkaline Phosphatase 134 H Creatine Kinase Creatine Kinase Index CK-MB (CK-2) Troponin I Total Protein 5.5 L Albumin 2.8 L Total Amylase Lipase Serum , Qual Negative Urine Color Colorless Urine Appearance Clear Urine pH 5.0 Ur Specific [place] 1.018 Urine Protein Negative Urine Glucose (UA) 3+ H Urine Ketones 2+ H Urine Blood 1+ H Urine Nitrite Negative Urine Bilirubin Negative Urine Urobilinogen Negative Ur Leukocyte Esterase Negative Urine RBC <1 Urine WBC 1 Urine Bacteria Rare Urine HCG, Qual 05/14/16 05/14/16 05/14/16 21:37 22:07 23:20 WBC RBC Hgb Hct MCV MCHC RDW Plt Count MPV Neutrophils % Lymphocytes % Monocytes % Band Neutrophils Platelet Estimate Platelet Comment Hypochromic-Microcytic Anisocytosis Puncture Site ABG pH ABG pCO2 at Pt Temp ABG pO2 at Pt Temp ABG HCO3 ABG O2 Sat (Measured) ABG O2 Content ABG Base Excess Jase Test O2 Delivery Device Oxygen Flow Rate PEEP Sodium 152 H D Potassium 3.3 L D Chloride 121 H D Carbon Dioxide 13 L D Anion Gap 18 H BUN 40 H D Creatinine 0.8 D Creat Clearance w eGFR > 60 POC Glucometer > 400 Random Glucose 383 H* D Lactic Acid Calcium < 7.0 L* Phosphorus Magnesium Total Bilirubin 0.4 D AST 10 L D ALT 10 L D Alkaline Phosphatase 73 D Creatine Kinase Creatine Kinase Index CK-MB (CK-2) Troponin I Total Protein 3.7 L D Albumin 1.8 L D Total Amylase Lipase Serum , Qual Urine Color Urine Appearance Urine pH Ur Specific [place] Urine Protein Urine Glucose (UA) Urine Ketones Urine Blood Urine Nitrite Urine Bilirubin Urine Urobilinogen Ur Leukocyte Esterase Urine RBC Urine WBC Urine Bacteria Urine HCG, Qual Negative 05/15/16 05/15/16 05/15/16 01:15 01:15 01:15 WBC 34.7 H* RBC 3.23 L Hgb 10.0 L D Hct 30.1 L D MCV 93.1 MCHC 33.2 RDW 14.5 Plt Count 348 MPV 8.6 Neutrophils % 89.0 H Lymphocytes % 7.0 L D Monocytes % 1.0 L Band Neutrophils 3.0 D Platelet Estimate Adequate Platelet Comment No clotting detected Hypochromic-Microcytic 1+ Anisocytosis 1+ Puncture Site ABG pH ABG pCO2 at Pt Temp ABG pO2 at Pt Temp ABG HCO3 ABG O2 Sat (Measured) ABG O2 Content ABG Base Excess Jase Test O2 Delivery Device Oxygen Flow Rate PEEP Sodium 143 Potassium 4.6 D Chloride 112 H Carbon Dioxide 12 L Anion Gap 19 H BUN 52 H D Creatinine 1.2 H D Creat Clearance w eGFR 54.30 POC Glucometer Random Glucose 360 H* Lactic Acid Calcium 7.6 L Phosphorus Magnesium Total Bilirubin 0.6 D AST 16 D ALT 19 D Alkaline Phosphatase 118 H D Creatine Kinase Creatine Kinase Index CK-MB (CK-2) Troponin I Total Protein 5.8 L D Albumin 3.0 L D Total Amylase 42 Lipase 42 L Serum , Qual Urine Color Urine Appearance Urine pH Ur Specific [place] Urine Protein Urine Glucose (UA) Urine Ketones Urine Blood Urine Nitrite Urine Bilirubin Urine Urobilinogen Ur Leukocyte Esterase Urine RBC Urine WBC Urine Bacteria Urine HCG, Qual 05/15/16 05/15/16 05/15/16 01:18 02:00 02:01 WBC RBC Hgb Hct MCV MCHC RDW Plt Count MPV Neutrophils % Lymphocytes % Monocytes % Band Neutrophils Platelet Estimate Platelet Comment Hypochromic-Microcytic Anisocytosis Puncture Site ABG pH ABG pCO2 at Pt Temp ABG pO2 at Pt Temp ABG HCO3 ABG O2 Sat (Measured) ABG O2 Content ABG Base Excess Jase Test O2 Delivery Device Oxygen Flow Rate PEEP Sodium Potassium Chloride Carbon Dioxide Anion Gap BUN Creatinine Creat Clearance w eGFR POC Glucometer > [phone] Random Glucose Lactic Acid 0.952 Calcium Phosphorus Magnesium Total Bilirubin AST ALT Alkaline Phosphatase Creatine Kinase Creatine Kinase Index CK-MB (CK-2) Troponin I Total Protein Albumin Total Amylase Lipase Serum , Qual Urine Color Urine Appearance Urine pH Ur Specific [place] Urine Protein Urine Glucose (UA) Urine Ketones Urine Blood Urine Nitrite Urine Bilirubin Urine Urobilinogen Ur Leukocyte Esterase Urine RBC Urine WBC Urine Bacteria Urine HCG, Qual 05/15/16 05/15/16 05/15/16 03:00 04:05 05:00 WBC RBC Hgb Hct MCV MCHC RDW Plt Count MPV Neutrophils % Lymphocytes % Monocytes % Band Neutrophils Platelet Estimate Platelet Comment Hypochromic-Microcytic Anisocytosis Puncture Site ABG pH ABG pCO2 at Pt Temp ABG pO2 at Pt Temp ABG HCO3 ABG O2 Sat (Measured) ABG O2 Content ABG Base Excess Jase Test O2 Delivery Device Oxygen Flow Rate PEEP Sodium 144 Potassium 4.3 Chloride 116 H Carbon Dioxide 19 L D Anion Gap 9 BUN 35 H D Creatinine 1.0 Creat Clearance w eGFR > 60 POC Glucometer [phone] Random Glucose 233 H D Lactic Acid Calcium 7.3 L Phosphorus Magnesium Total Bilirubin 0.4 D AST 14 L ALT 19 Alkaline Phosphatase 107 Creatine Kinase Creatine Kinase Index CK-MB (CK-2) Troponin I Total Protein 5.5 L Albumin 2.8 L Total Amylase Lipase Serum , Qual Urine Color Urine Appearance Urine pH Ur Specific [place] Urine Protein Urine Glucose (UA) Urine Ketones Urine Blood Urine Nitrite Urine Bilirubin Urine Urobilinogen Ur Leukocyte Esterase Urine RBC Urine WBC Urine Bacteria Urine HCG, Qual 05/15/16 05/15/16 05/15/16 05:00 05:00 05:17 WBC RBC Hgb Hct MCV MCHC RDW Plt Count MPV Neutrophils % Lymphocytes % Monocytes % Band Neutrophils Platelet Estimate Platelet Comment Hypochromic-Microcytic Anisocytosis Puncture Site ABG pH ABG pCO2 at Pt Temp ABG pO2 at Pt Temp ABG HCO3 ABG O2 Sat (Measured) ABG O2 Content ABG Base Excess Jase Test O2 Delivery Device Oxygen Flow Rate PEEP Sodium 143 Potassium 4.6 Chloride 112 H Carbon Dioxide 12 L D Anion Gap 19 H BUN 50 H D Creatinine 1.4 H D Creat Clearance w eGFR 45.45 POC Glucometer 265.34794 Random Glucose 373 H* D Lactic Acid Calcium 7.6 L Phosphorus 1.6 L D Magnesium 1.9 Total Bilirubin 0.5 D AST 17 D ALT 19 Alkaline Phosphatase 116 Creatine Kinase 428 H D Creatine Kinase Index 2.3 CK-MB (CK-2) 9.798 H Troponin I 0.58 H Total Protein 5.9 L Albumin 3.1 L Total Amylase Lipase Serum , Qual Urine Color Urine Appearance Urine pH Ur Specific [place] Urine Protein Urine Glucose (UA) Urine Ketones Urine Blood Urine Nitrite Urine Bilirubin Urine Urobilinogen Ur Leukocyte Esterase Urine RBC Urine WBC Urine Bacteria Urine HCG, Qual 05/15/16 05/15/16 05/15/16 06:50 07:24 10:59 WBC RBC Hgb Hct MCV MCHC RDW Plt Count MPV Neutrophils % Lymphocytes % Monocytes % Band Neutrophils Platelet Estimate Platelet Comment Hypochromic-Microcytic Anisocytosis Puncture Site Right radial ABG pH 7.32 L D ABG pCO2 at Pt Temp 35.5 D ABG pO2 at Pt Temp 96.3 D ABG HCO3 17.9 L ABG O2 Sat (Measured) 97.7 ABG O2 Content 13.5 L ABG Base Excess -6.9 L Jase Test Positive O2 Delivery Device Room air Oxygen Flow Rate 21% PEEP 0.0 Sodium Potassium Chloride Carbon Dioxide Anion Gap BUN Creatinine Creat Clearance w eGFR POC Glucometer 259.24916 314.26542 Random Glucose Lactic Acid Calcium Phosphorus Magnesium Total Bilirubin AST ALT Alkaline Phosphatase Creatine Kinase Creatine Kinase Index CK-MB (CK-2) Troponin I Total Protein Albumin Total Amylase Lipase Serum , Qual Urine Color Urine Appearance Urine pH Ur Specific [place] Urine Protein Urine Glucose (UA) Urine Ketones Urine Blood Urine Nitrite Urine Bilirubin Urine Urobilinogen Ur Leukocyte Esterase Urine RBC Urine WBC Urine Bacteria Urine HCG, Qual 05/15/16 16:26 WBC RBC Hgb Hct MCV MCHC RDW Plt Count MPV Neutrophils % Lymphocytes % Monocytes % Band Neutrophils Platelet Estimate Platelet Comment Hypochromic-Microcytic Anisocytosis Puncture Site ABG pH ABG pCO2 at Pt Temp ABG pO2 at Pt Temp ABG HCO3 ABG O2 Sat (Measured) ABG O2 Content ABG Base Excess Jase Test O2 Delivery Device Oxygen Flow Rate PEEP Sodium Potassium Chloride Carbon Dioxide Anion Gap BUN Creatinine Creat Clearance w eGFR POC Glucometer 209.08425 Random Glucose Lactic Acid Calcium Phosphorus Magnesium Total Bilirubin AST ALT Alkaline Phosphatase Creatine Kinase Creatine Kinase Index CK-MB (CK-2) Troponin I Total Protein Albumin Total Amylase Lipase Serum , Qual Urine Color Urine Appearance Urine pH Ur Specific [place] Urine Protein Urine Glucose (UA) Urine Ketones Urine Blood Urine Nitrite Urine Bilirubin Urine Urobilinogen Ur Leukocyte Esterase Urine RBC Urine WBC Urine Bacteria Urine HCG, Qual Active Medications Generic Name Dose Route Start Last Admin Trade Name Freq PRN Reason Stop Dose Admin Chlorhexidine Gluconate 1 applic 05/14/16 22:00 05/15/16 01:30 Hibiclens For Decolonization - TP Not Given HS KARLENE Heparin Sodium (Porcine) 5,000 unit 05/15/16 22:00 Heparin - SQ TID KARLENE Sodium Chloride 1,000 mls @ 75 mls/hr 05/15/16 07:30 05/15/16 07:41 1/2 Normal Saline IV 75 mls/hr ASDIR KARLENE Administration Insulin Aspart 1 vial 05/15/16 11:00 05/15/16 17:02 Novolog Vial Sliding Scale - SQ 4 units ACHS KARLENE Administration Protocol Insulin Detemir 25 units 05/15/16 22:00 Levemir Vial SQ 05/15/16 22:01 ONCE ONE Insulin Detemir 50 units 05/16/16 22:00 Levemir Vial SQ HS KARLENE Mupirocin 1 applic 05/14/16 22:00 05/15/16 11:23 Bactroban Ointment (For Decolonization) - NS 05/19/16 21:59 1 applic BID KARLENE Administration ASSESSMENT/PLAN: 26F with history of poorly controlled diabetes secondary to insulin non- compliance. Diabetic ketoacidosis/DM: DKA resolved stop D5w start 1/2 NS @ 100ml/hr Start levemir start diabetic diet elevated troponin: likely from demand ischemia vs ACS will trend troponin trend EKG Echo results noted Will consider cardiology consult Leukocytosis: likely from leukomoid stress reaction secondary to DKA no source of infection appreciated will f/u cultures FEN: 1/2 NS @ 100ml/hr replace electrolytes PRN diabetic diet PPx: HSQ Transfer to floor Visit type - Emergency Visit Emergency Visit: Yes ED Registration Date: 05/14/16 Care time: The patient presented to the Emergency Department on the above date and was hospitalized for further evaluation of their emergent condition. - New Patient This patient is new to me today: Yes Date on this admission: 05/15/16 - Critical Care Critical Care patient: Yes Total Critical Care Time (in minutes): 45 Critical Care Statement: The care of this patient involved high complexity decision making to prevent further life threatening deterioration of the patient 's condition and/or to evalute & treat vital organ system(s) failure or risk of failure.
[2016-05-15 18:00] LABS: TROPONIN I 0.38 ng/ml (0.00-0.05)
[2016-05-15] MEDS ORDERED: SODIUM CHLORIDE 0.45% 1,000 ML IV SCH (18:41)
[2016-05-15] MEDS ORDERED: HEMOQUE TEST 1 EACH EACH ONE (20:17)
[2016-05-15] MEDS ORDERED: PT OWN MED DRAWER 7, Y5N ONE (20:25)
[2016-05-15] MEDS ORDERED: HEPARIN NA (PORCINE) 5,000 UNITS/ML 1ML VIAL ONE (20:26)
[2016-05-15] MEDS ORDERED: CHLORHEXIDINE GLUCONATE 4% CLEANSER FOR DECOLONIZATION TP SCH (22:00)
[2016-05-15 23:02] LABS: ALBUMIN 2.9 g/dl (3.4-5.0); ANION GAP 14 (8-16); BILIRUBIN,TOTAL 0.3 mg/dL (0.2-1.0); CALCIUM 7.7 mg/dL (8.5-10.1); CO2 22 mmol/L (21-32); CREATININE 0.7 mg/dL (0.55-1.02); GLUCOSE,RANDOM 133 mg/dL (74-106); SGOT/AST 24 U/L (15-37); SGPT/ALT 16 U/L (12-78); TOT PROT 5.7 g/dl (6.4-8.2)
[2016-05-15 23:03] LABS: ALK PHOS 115 U/L (45-117)
[2016-05-16] MEDS ORDERED: INSULIN DETEMIR 100 UNITS/ML MDV SQ ONE ×2 (01:57→12:06)
[2016-05-16 06:28] LABS: MEAN CELL VOLUME 91.3 fl (80-96); MEAN PLT VOLUME 7.9 fl (7.5-11.1); PLATELET COUNT 279 K/MM3 (134-434); RDW 14.7 % (11.6-15.6); WHITE BLOOD COUNT 26.6 K/mm3 (4.0-10.0)
[2016-05-16 06:39] LABS: ALBUMIN 2.7 g/dl (3.4-5.0); ALK PHOS 114 U/L (45-117); ANION GAP 11 (8-16); BILIRUBIN,TOTAL 0.5 mg/dL (0.2-1.0); CALCIUM 7.8 mg/dL (8.5-10.1); CO2 25 mmol/L (21-32); CREATININE 0.6 mg/dL (0.55-1.02); GLUCOSE,RANDOM 206 mg/dL (74-106); SGOT/AST 22 U/L (15-37); SGPT/ALT 18 U/L (12-78); TOT PROT 5.5 g/dl (6.4-8.2)
[2016-05-16] MEDS: INSULIN SLIDING SCALE (NOVOLOG) 1 VIAL SQ SCH ×2 (06:58→11:13)
[2016-05-16] MEDS: HEPARIN NA (PORCINE) 5,000 UNITS/ML 1ML VIAL SQ SCH ×2 (07:04→14:36)
--- NOTE | 2016-05-16 07:09 | PN ---
Progress Note (short form) - Note Progress Note: PULM/CRITICAL CARE MEDICINE PROGRESS NOTE: Pt seen and examined in the ICU Events: Gap remains closed, on SQ insulin, tolerating some POs (jello) Current Medications Chlorhexidine Gluconate (Hibiclens For Decolonization -) 1 applic TP HS KARLENE Last Admin: 05/15/16 21:16 Dose: Not Given Heparin Sodium (Porcine) (Heparin -) 5,000 unit SQ TID KARLENE Last Admin: 05/15/16 21:16 Dose: 5,000 unit Sodium Chloride (1/2 Normal Saline) 1,000 mls @ 75 mls/hr IV ASDIR KARLENE Last Admin: 05/15/16 19:08 Dose: Not Given Insulin Aspart (Novolog Vial Sliding Scale -) 1 vial SQ ACHS KARLENE PRN Reason: Protocol Last Admin: 05/15/16 21:17 Dose: 2 units Insulin Detemir (Levemir Vial) 50 units SQ HS [facility] Mupirocin (Bactroban Ointment (For Decolonization) -) 1 applic NS BID KARLENE Stop: 05/19/16 21:59 Last Admin: 05/15/16 21:16 Dose: 1 applic Vital Signs Temp 97.5 F L 05/15/16 18:00 Pulse 103 H 05/16/16 04:00 Resp 16 05/16/16 04:00 BP 170/78 05/16/16 04:00 Pulse Ox 98 05/15/16 19:51 Intake & Output 05/15/16 05/16/16 05/16/16 18:59 06:59 18:59 Intake Total 1688.6 Output Total 1700 Balance -11.4 Intake: IV 1038.6 NOVOLIN R VIAL *IVPUSH / 13.6 ER / ICU Only* 100 UNITS In Normal Saline - 99 ml @ 0.1 UNITS/KG/HR 6.8 mls /hr IVPB TITR KARLENE Rx#: [id number] D5-1/2Ns+40 Meq KCl - 1, 200 000 ml @ 200 mls/hr IV ASDIR KARLENE Rx#:[id number] 1/2 Normal Saline 1,000 825 ml @ 75 mls/hr IV ASDIR KARLENE Rx#:[id number] Oral 650 Output: Urine 1700 Lomeli 1700 Other: Voiding Method Indwelling Catheter Indwelling Catheter Bowel Movement No No EXAM: Neuro: alert HENNT: PERRL Lungs: clear Heart: RRR Abd: soft, non-tender Ext: warm, no edema Skin: warm/dry CBC, BMP 05/16/16 05:20 Problem List - Problems (1) DKA (diabetic ketoacidosis) Code(s): E13.10 - OTH DIABETES MELLITUS WITH KETOACIDOSIS WITHOUT COMA Qualifiers: Diabetes mellitus type: type 1 Diabetes mellitus complication detail: without coma Qualified Code(s): E10.10 - Type 1 diabetes mellitus with ketoacidosis without coma (2) Leukemoid reaction Code(s): D72.823 - LEUKEMOID REACTION (3) Insulin dependent diabetes mellitus Code(s): E11.9 - TYPE 2 DIABETES MELLITUS WITHOUT COMPLICATIONS Z79.4 - [employer] (CURRENT) USE OF INSULIN (4) Epigastric abdominal pain Code(s): R10.13 - EPIGASTRIC PAIN (5) Gastroparesis due to DM Code(s): E11.43 - TYPE 2 DIABETES W DIABETIC AUTONOMIC (POLY)NEUROPATHY K31.84 - GASTROPARESIS (6) Nausea & vomiting Code(s): R11.2 - NAUSEA WITH VOMITING, UNSPECIFIED Assessment/Plan PO diet Insulin SS Currently monitoring off ABX Follow cultures Follow BGM Transfer to floor today Javy Denise Pulm/Critical Care [employer]
--- NOTE | 2016-05-16 08:23 | PN ---
Teaching Attending Note Name of Resident: Skip Ibarra ATTENDING PHYSICIAN STATEMENT I saw and evaluated the patient. I reviewed the resident's note and discussed the case with the resident. I agree with the resident's findings and plan as documented. SUBJECTIVE: no fever or chills, did not sleep well last night . no abd pain , N/V/ D . no MOONEY or visual changes OBJECTIVE: NAD ,AAOx3 , MMM, no facial droop CV : RRR, slightly tachy Lungs: CTAB Ext : no edema , healing wound on R dorsal foot Abd : soft, NT, ND , NL BS ASSESSMENT AND PLAN: 26 y/o lady with h/o DM I , non compliance , DKAs, who presented with N/V/Abd pain and was found to have DKA. 1- DKA due to non compliance : resolved . GLC improved - cont SSI and long acting insulin . -stop IVF -diabetic diet today . tolerated liguid diet today 2- Leukocytosis : likely due to leukomoid reaction from stress. no source of infection monitor off ABx follow blood , urine cx 3- Trop leak : likely demand ischemia . CKMb < 5% of total -Trop trended down. - Echo reviewed. - follow up with card as out pt 4-HTN: was told before had HTN , but was never placed on meds. - start lisinopril - monitor renal function 5- DVT pX : SQ heparin
[2016-05-16] MEDS: MUPIROCIN 2% TOPICAL OINTMENT FOR DECOLONIZATION NS SCH (09:39)
[2016-05-16] MEDS ORDERED: LISINOPRIL 20 MG TABLET (FP) PO SCH (10:00)
--- NOTE | 2016-05-16 10:27 | PN ---
Physical Exam: SUBJECTIVE: Patient seen and examined at bedside states she is tired as she did not sleep well no other complaints OBJECTIVE: Vital Signs Period Temp Pulse Resp BP Sys/Plata Pulse Ox Last 24 Hr 97.2 F-98.7 F 103-121 14-23 142-180/69-98 98-100 GENERAL: The patient is orientated easily arousable. sleeping. not as tired appearing as yesterday HEAD: Normal with no signs of trauma. EYES: PERRL, extraocular movements intact NECK: Trachea midline, full range of motion, supple. LUNGS: Breath sounds equal, clear to auscultation bilaterally HEART: tachycardia ABDOMEN: Soft, nontender, nondistended EXTREMITIES: warm, well-perfused NEUROLOGICAL: Cranial nerves II through XII grossly intact. Normal speech, gait not observed. Laboratory Results - last 24 hr 05/15/16 05/15/16 05/15/16 05:00 10:59 16:26 WBC RBC Hgb Hct MCV MCHC RDW Plt Count MPV Sodium 143 Potassium 4.6 Chloride 112 H Carbon Dioxide 12 L D Anion Gap 19 H BUN 50 H D Creatinine 1.4 H D Creat Clearance w eGFR 45.45 POC Glucometer 314.71827 209.94581 Random Glucose 373 H* D Calcium 7.6 L Total Bilirubin 0.5 D AST 17 D ALT 19 Alkaline Phosphatase 116 Creatine Kinase Troponin I Total Protein 5.9 L Albumin 3.1 L 05/15/16 05/15/16 05/15/16 17:00 20:23 21:30 WBC RBC Hgb Hct MCV MCHC RDW Plt Count MPV Sodium 139 Potassium 3.7 Chloride 103 Carbon Dioxide 22 D Anion Gap 14 BUN 10 D Creatinine 0.7 D Creat Clearance w eGFR > 60 POC Glucometer 164.24336 Random Glucose 133 H D Calcium 7.7 L Total Bilirubin 0.3 D AST 24 D ALT 16 Alkaline Phosphatase 115 Creatine Kinase 525 H D Troponin I 0.38 H Total Protein 5.7 L Albumin 2.9 L 05/16/16 05/16/16 05/16/16 05:20 05:20 05:30 WBC 26.6 H RBC 3.34 L Hgb 10.4 L Hct 30.5 L MCV 91.3 MCHC 34.0 RDW 14.7 Plt Count 279 MPV 7.9 Sodium 138 Potassium 3.5 Chloride 102 Carbon Dioxide 25 Anion Gap 11 BUN 9 Creatinine 0.6 Creat Clearance w eGFR > 60 POC Glucometer 206.89639 Random Glucose 206 H D Calcium 7.8 L Total Bilirubin 0.5 D AST 22 ALT 18 Alkaline Phosphatase 114 Creatine Kinase Troponin I Total Protein 5.5 L Albumin 2.7 L Active Medications Generic Name Dose Route Start Last Admin Trade Name Freq PRN Reason Stop Dose Admin Chlorhexidine Gluconate 1 applic 05/15/16 22:00 05/15/16 21:16 Hibiclens For Decolonization - TP Not Given HS KARLENE Heparin Sodium (Porcine) 5,000 unit 05/15/16 22:00 05/16/16 07:04 Heparin - SQ 5,000 unit TID KARLENE Administration Insulin Aspart 1 vial 05/15/16 22:00 05/16/16 06:58 Novolog Vial Sliding Scale - SQ 2 units ACHS KARLENE Administration Protocol Insulin Detemir 50 units 05/16/16 22:00 Levemir Vial SQ HS KARLENE Lisinopril 20 mg 05/16/16 10:00 05/16/16 09:38 Prinivil PO 20 mg DAILY KARLENE Administration Mupirocin 1 applic 05/15/16 22:00 05/16/16 09:39 Bactroban Ointment (For Decolonization) - NS 05/19/16 21:59 1 applic BID KARLENE Administration ASSESSMENT/PLAN: 26F with history of poorly controlled diabetes secondary to insulin non- compliance. Diabetic ketoacidosis/DM: BGM much better controlled today DKA resolved Stop IVF change Levemir 50units QHS to 25 units BID as this regimen seems to be working ISS Diabetic diet Will need outpatient follow up with optho and podiatry elevated troponin: likely from demand ischemia vs ACS-unlikely from ACS Troponin trending downwards f/u with cardiology as outpt Leukocytosis: likely from leukomoid stress reaction secondary to DKA no source of infection appreciated will f/u cultures-negative so far trending downward significantly off Abx Hypertension: patient has high high BP readings started this AM on lisinopril 20mg will trend BP trend Cr to monitor renal function FEN: stop IVF replace electrolytes PRN diabetic diet PPx: HSQ Transfer to floor Might be able to D/C tomorrow Visit type - Emergency Visit Emergency Visit: Yes ED Registration Date: 05/14/16 Care time: The patient presented to the Emergency Department on the above date and was hospitalized for further evaluation of their emergent condition. - New Patient This patient is new to me today: No - Critical Care Critical Care patient: No
[2016-05-16 11:18] VITALS: TEMP 98.2
[2016-05-16 14:19] VITALS: BP 138/98; PULSE 110
--- NOTE | 2016-05-16 14:20 | DS ---
Physical Exam: SUBJECTIVE: Patient seen and examined OBJECTIVE: Vital Signs Period Temp Pulse Resp BP Sys/Plata Pulse Ox Last 24 Hr 97.5 F-98.7 F 103-120 14-23 136-180/78-103 98-100 PHYSICAL EXAM GENERAL: AAOx3 HEAD: Normal with no signs of trauma. EYES: PERRL, extraocular movements intact NECK: Trachea midline, full range of motion, supple. LUNGS: Breath sounds equal, clear to auscultation bilaterally HEART: tachycardia ABDOMEN: Soft, nontender, nondistended EXTREMITIES: warm, well-perfused NEUROLOGICAL: Cranial nerves II through XII grossly intact. Normal speech, gait not observed. LABS Laboratory Results - last 24 hr 05/15/16 05/15/16 05/15/16 10:59 16:26 17:00 WBC RBC Hgb Hct MCV MCHC RDW Plt Count MPV Sodium Potassium Chloride Carbon Dioxide Anion Gap BUN Creatinine Creat Clearance w eGFR POC Glucometer [phone] Random Glucose Calcium Total Bilirubin AST ALT Alkaline Phosphatase Creatine Kinase 525 H D Troponin I 0.38 H Total Protein Albumin 05/15/16 05/15/16 05/16/16 20:23 21:30 05:20 WBC 26.6 H RBC 3.34 L Hgb 10.4 L Hct 30.5 L MCV 91.3 MCHC 34.0 RDW 14.7 Plt Count 279 MPV 7.9 Sodium 139 Potassium 3.7 Chloride 103 Carbon Dioxide 22 D Anion Gap 14 BUN 10 D Creatinine 0.7 D Creat Clearance w eGFR > 60 POC Glucometer 164.29820 Random Glucose 133 H D Calcium 7.7 L Total Bilirubin 0.3 D AST 24 D ALT 16 Alkaline Phosphatase 115 Creatine Kinase Troponin I Total Protein 5.7 L Albumin 2.9 L 05/16/16 05/16/16 05:20 05:30 WBC RBC Hgb Hct MCV MCHC RDW Plt Count MPV Sodium 138 Potassium 3.5 Chloride 102 Carbon Dioxide 25 Anion Gap 11 BUN 9 Creatinine 0.6 Creat Clearance w eGFR > 60 POC Glucometer 206.55619 Random Glucose 206 H D Calcium 7.8 L Total Bilirubin 0.5 D AST 22 ALT 18 Alkaline Phosphatase 114 Creatine Kinase Troponin I Total Protein 5.5 L Albumin 2.7 L HOSPITAL COURSE: Date of Admission:05/14/16 Date of Discharge: 05/16/16 26F with history of DM uncontrolled insulin non compliant presents to the ER in DKA. She was admitted to the ICU and insulin gtt started per protocol. She was startyed on levemir 25 units BID with insulin sliding scale and fingersticks for blood glucose monitoring were under control. Patient today was noted to be hypertensive overnight. She was started on lisinopril 20mg po daily. BP was much better controlled throughout the day today. Once she was feeling much better and no longer tired or lethargic she wanted to go home. I explained to her the risks of leaving in this condition including but not limited to and organ loss or damage and she should stay so we can develop a good insulin regimen for her however she insisted she leave and she signed out AMA. Follow up with PMD and Dr. Ibarra the resident was chava as she expressed she would like to see me in the office and was not happy with PMD. she was told to follow up with grain farmworker senior online marketing manager and varnish supervisor. She states she has doctors that she follows with and did not need referrals. I explained the importance of having her BP under sontrol and the importance of fillin lisinopril script and importance of follow up so she can get refills and evaluations. Minutes to complete discharge: 45 Discharge Summary Reason For Visit: DIABETIC KETOACIDOSIS Current Active Problems DKA (diabetic ketoacidosis) (Acute) DVT prophylaxis (Acute) Diabetic ketoacidosis associated with type 1 diabetes mellitus (Acute) Epigastric abdominal pain (Acute) Gastroparesis (Acute) Gastroparesis due to DM (Acute) Hypertension (Acute) Leukemoid reaction (Acute) Insulin dependent diabetes mellitus (Chronic) Condition: Guarded - Instructions Diet, Activity, Other Instructions: please eat a low glucose index diet continue your lantus at home but do 25untis twice a day continue your sliding scale as well medication compliance is important to prevent complications that we spoke about you need to take your blood pressure medication every day at the same time please follow up with protozoologist follow up with your Primary care doctor or come see me Dr. Ibarra in the office see a grain farmworker as well if you experience these symptoms again please go to the nearest emergency room Referrals: Clare Acevedo MD [Primary Care Provider] - Disposition: AGAINST MEDICAL ADVICE - Home Medications Comprehensive Discharge Medication List: Ambulatory Orders Insulin Lispro [Humalog] 0 unit SQ ASDIR 07/18/13 Amitriptyline HCl [Elavil -] 3 tab PO DAILY #0 06/27/15 Acetaminophen [Tylenol] 650 mg PO Q4H PRN #20 tablet 01/17/16 Metoclopramide HCl [Reglan] 10 mg PO Q6H PRN #15 tablet 01/17/16 Ranitidine HCl [Zantac] 150 mg PO BID PRN #20 tablet 01/17/16 Insulin Glargine,Hum.rec.anlog [Lantus (nf)] 25 units SQ BID #1 vial 05/16/16 Lisinopril [Prinivil] 20 mg PO DAILY #30 tablet 05/16/16 This patient is new to me today: No Emergency Visit: No Critical Care patient: No - Discharge Referral Referred to [facility] No
--- NOTE | 2016-05-16 14:46 | EKG ---
Test Reason : Blood Pressure : / mmHG Vent. Rate : 119 BPM Atrial Rate : 119 BPM P-R Int : 128 ms QRS Dur : 066 ms QT Int : 310 ms P-R-T Axes : 033 -04 025 degrees QTc Int : 436 ms SINUS TACHYCARDIA WHEN COMPARED WITH ECG OF 15-MAY-2016 08:56, NONSPECIFIC T WAVE ABNORMALITY NO LONGER EVIDENT IN LATERAL LEADS Confirmed by TERRY SCHILLING MD ([id number]) on 05/16/2016 2:46:18 PM Referred By: Confirmed By:TERRY SCHILLING MD
[2016-05-16] MEDS ORDERED: INSULIN DETEMIR 100 UNITS/ML MDV SQ SCH ×3 (22:00)
== END 2016-05-16 14:41 | disposition left against medical advice (07) | DRG 420 ==
LOC: JER 17:44 → JERBED 20:00 → JICU 05-15 01:35
PROVIDERS: ADMIT Internal Medicine; ATTEND Internal Medicine
DX: E10.10 Type 1 diabetes mellitus with ketoacidosis without coma (principal); Z79.4 Long term (current) use of insulin; D72.829 Elevated white blood cell count, unspecified; I10 Essential (primary) hypertension; Z91.14 Patient's other noncompliance with medication regimen; E10.43 Type 1 diabetes mellitus with diabetic autonomic (poly)neuropathy; K31.84 Gastroparesis; R10.13 Epigastric pain; R11.2 Nausea with vomiting, unspecified; D72.823 Leukemoid reaction
CPT/HCPCS: 36415; 36600; 71010-TC; 80053; 81003; 81015; 82009; 82150; 82375; 82550; 82553; 82803; 83050; 83605; 83690; 83735; 84100; 84484; 84703; 85025; 85027; 87040; 87086; 93005; 93010; 93306-TC; 99285-25; J1644

== ENCOUNTER 2016-08-08 21:55 | Inpatient (IN) | payer OTHER ==
--- NOTE | 2016-08-08 22:09 | PDOC ---
History of Present Illness - General History Source: Patient Exam Limitations: No Limitations - History of Present Illness Initial Comments: 08/08/16 23:48 The patient is a 26-year-old female with a significant past medical history of gastroparesis, IDDM, anxiety, and depression, who presents to the emergency department with abdominal pain for 5 days. She reports the abdominal pain is located in the epigastric region, severe in nature, and radiates to her chest. She reports associated nausea, but denies any vomiting, diarrhea, or constipation. The patient denies chest pain, shortness of breath, headache and dizziness. The patient denies fever and chills. The patient denies dysuria, frequency, urgency and hematuria. LMP: one week ago Allergies: NKDA Past surgical hx: none reported Social History: everyday smoker PCP: Dr. Acevedo <Kendra Mcrae - Last Filed: 08/08/16 23:48> <Lulu Weston - Last Filed: 08/09/16 07:03> - General Stated Complaint: ABD PAIN Time Seen by Provider: 08/08/16 22:08 Past History <Kendra Mcrae - Last Filed: 08/08/16 23:48> - Past Medical History Anemia: No Asthma: No Cancer: No Cardiac Disorders: No CVA: No COPD: No CHF: No Dementia: No Diabetes: Yes GI Disorders: Yes (gastroparesis) Disorders: No HTN: No Hypercholesterolemia: No Liver Disease: No Psychiatric Problems: Yes (ANXIETY DEPRESSION) Suicide Attempt (Hx): No Seizures: No Thyroid Disease: No - Surgical History Abdominal Surgery: No Appendectomy: No Cardiac Surgery: No Cholecystectomy: No Lung Surgery: No Neurologic Surgery: No Orthopedic Surgery: No - Family Disease History Family Disease History: Diabetes: Grandparents (great-grandmother) - Immunization History Immunization Up to Date: Yes - Psycho/Social/Smoking Cessation Hx Anxiety: No Suicidal Ideation: No Smoking Status: No Smoking History: Current every day smoker Have you smoked in the past 12 months: Yes Number of Cigarettes Smoked Daily: 10 'Breaking Loose' booklet given: 09/03/15 Hx Alcohol Use: No Drug/Substance Use Hx: No Substance Use Type: None Hx Substance Use Treatment: No <Lulu Weston - Last Filed: 08/09/16 07:03> - Past Medical History Allergies/Adverse Reactions: Allergies Allergy/AdvReac Type Severity Reaction Status Date / Time No Known Allergies Allergy Verified 05/14/16 17:56 Home Medications: Ambulatory Orders Insulin Lispro [Humalog] 0 unit SQ ASDIR 07/18/13 Amitriptyline HCl [Elavil -] 3 tab PO DAILY #0 06/27/15 Acetaminophen [Tylenol] 650 mg PO Q4H PRN #20 tablet 01/17/16 Metoclopramide HCl [Reglan] 10 mg PO Q6H PRN #15 tablet 01/17/16 Ranitidine HCl [Zantac] 150 mg PO BID PRN #20 tablet 01/17/16 Insulin Glargine,Hum.rec.anlog [Lantus (nf)] 50 units SQ DAILY 08/09/16 Review of Systems - Review of Systems Able to Perform ROS?: Yes Comments:: 08/08/16 23:48 CONSTITUTIONAL: Absent: fever, chills, diaphoresis, generalized weakness, malaise, loss of appetite HEENT: Absent: rhinorrhea, nasal congestion, throat pain, throat swelling, difficulty swallowing, mouth swelling, ear pain, eye pain, visual changes CARDIOVASCULAR: Absent: chest pain, syncope, palpitations, irregular heart rate, lightheadedness , peripheral edema RESPIRATORY: Absent: cough, shortness of breath, dyspnea with exertion, orthopnea, wheezing, stridor, hemoptysis GASTROINTESTINAL: Present: (+) abdominal pain, (+) nausea Absent: abdominal distension, vomiting, diarrhea, constipation, melena, hematochezia GENITOURINARY: Absent: dysuria, frequency, urgency, hesitancy, hematuria, flank pain, genital pain MUSCULOSKELETAL: Absent: myalgia, arthralgia, joint swelling SKIN: Absent: rash, itching, pallor HEMATOLOGIC/IMMUNOLOGIC: Absent: easy bleeding, easy bruising, lymphadenopathy, frequent infections ENDOCRINE: Absent: unexplained weight gain, unexplained weight loss, heat intolerance, cold intolerance NEUROLOGIC: Absent: headache, focal weakness or paresthesias, dizziness, unsteady gait, seizure, mental status changes, bladder or bowel incontinence PSYCHIATRIC: Absent: anxiety, depression, suicidal or homicidal ideation, hallucinations. <Kendra Mcrae - Last Filed: 08/08/16 23:48> *Physical Exam - Vital Signs Last Vital Signs Temp Pulse Resp BP Pulse Ox 98.1 F 133 H 18 155/107 99 08/08/16 22:19 08/08/16 22:19 08/08/16 22:19 08/08/16 22:55 08/08/16 22:19 - Physical Exam Comments: 08/08/16 23:48 GENERAL: Well developed, well nourished. Awake and alert. No acute distress. Afebrile. HEENT: Normocephalic, atraumatic. PERRLA, EOMI. No conjunctival pallor. Sclera are non- icteric. Moist mucous membranes. Oropharynx is clear. NECK: Supple. Full ROM. No JVD. Carotid pulses 2+ and symmetric, without bruits. No thyromegaly. No lymphadenopathy. CARDIOVASCULAR: Regular rate and rhythm. No murmurs, rubs, or gallops. Distal pulses are 2+ and symmetric. PULMONARY: No evidence of respiratory distress. Lungs clear to auscultation bilaterally. No wheezing, rales or rhonchi. ABDOMINAL: (+) Minimal tenderness. Soft. Non-distended. No rebound or guarding. No organomegaly. (+) Decreased abdominal sounds. MUSCULOSKELETAL Normal range of motion at all joints. No bony deformities or tenderness. No CVA tenderness. EXTREMITIES: No cyanosis. No clubbing. No edema. No calf tenderness. SKIN: Warm and dry. Normal capillary refill. No rashes. No jaundice. NEUROLOGICAL: Alert, awake, appropriate. Cranial nerves 2-12 intact. No deficits to light touch and temperature in face, upper extremities and lower extremities. No motor deficits in the in face, upper extremities and lower extremities. Normoreflexic in the upper and lower extremities. Normal speech. Toes are down- going bilaterally. Gait is normal without ataxia. PSYCHIATRIC: Cooperative. Good eye contact. Appropriate mood and affect. <Kendra Mcrae - Last Filed: 08/08/16 23:48> ED Treatment Course - LABORATORY CBC & Chemistry Diagram: 08/08/16 23:13 08/08/16 22:55 - ADDITIONAL ORDERS Additional order review: Laboratory Results 08/08/16 22:23 POC Glucometer [id number] 08/08/16 08/08/16 23:13 22:23 RBC 5.09 D MCV 86.7 MCHC 32.6 RDW 15.7 H MPV 7.9 POC Glucometer 107.75092 - Medications Given in the ED: ED Medications Discontinued Medications Generic Name Dose Route Start Last Admin Trade Name Monika PRN Reason Stop Dose Admin Ketorolac Tromethamine 30 mg 08/08/16 23:14 08/08/16 23:22 Toradol Injection - IVPUSH 08/08/16 23:15 30 mg ONCE ONE Administration Sodium Chloride 1,000 ml 08/08/16 22:22 08/08/16 22:55 Normal Saline - IV 08/08/16 22:23 1,000 ml ONCE ONE Administration <Kendra Mcrae - Last Filed: 08/08/16 23:48> - LABORATORY CBC & Chemistry Diagram: 08/08/16 23:13 08/08/16 22:55 <Lulu Weston - Last Filed: 08/09/16 07:03> Medical Decision Making - Medical Decision Making 08/09/16 05:39 Pt comes with abdominal pain and inability to eat at home for the past 2 days; she is a known diabetes. Today her blood sugar is controlled, but she is having intactable vomiting. SHe has had multiple episodes of DKA in the past and she has had diabetic gastroparesis in the past. Today she has small ketones in her urine, although her serum acetone is negative - inconsistent for DKA. Pt has an elevated anion gap. Pt's CXR is normal and abd XR doesn't demonstrate obstruction. WBC is elevated at 25; however pt has had elevated WBC count multiple times in the past, sometimes as high as 34 -40. Pt received hydration with 1.5 L saline in the ER, and she was willing to do a PO challenge, however she feels nauseous, and cannot tolerate food. She will be admitted to the hospitalist for gastorparesis and intractable vomiting. <Lulu Weston - Last Filed: 08/09/16 07:03> *DC/Admit/Observation/Transfer - Attestations Scribe Attestion: 08/08/16 23:49 Documentation prepared by Kendra Mcrae, acting as medical coder for Lulu Weston MD. 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
[2016-08-08] MEDS ORDERED: SODIUM CHLORIDE 0.9% 500 ML INFUS.BAG IV ONE (22:22)
[2016-08-08 22:29] VITALS: BMI 29.2
[2016-08-08] MEDS ORDERED: KETOROLAC TROMETHAMINE 30 MG/1 ML VIAL IVPUSH ONE (23:14)
[2016-08-08] MEDS ORDERED: KETOROLAC TROMETHAMINE 30 MG/1 ML VIAL ONE (23:18)
[2016-08-08 23:34] LABS: MCH 28.2 pg (25.7-33.7); MCHC 32.6 g/dl (32.0-36.0); MEAN CELL VOLUME 86.7 fl (80-96); MEAN PLT VOLUME 7.9 fl (7.5-11.1); PLATELET COUNT 532 K/MM3 (134-434); RDW 15.7 % (11.6-15.6); WHITE BLOOD COUNT 25.1 K/mm3 (4.0-10.0)
[2016-08-08 23:59] LABS: ALBUMIN 3.3 g/dl (3.4-5.0); ANION GAP 18 (8-16); CALCIUM 9.4 mg/dL (8.5-10.1); CO2 21 mmol/L (21-32); CREATININE 0.8 mg/dL (0.55-1.02); GLUCOSE,RANDOM 71 mg/dL (74-106); SGPT/ALT 15 U/L (12-78)
[2016-08-09 00:01] LABS: ALK PHOS 170 U/L (45-117); BILIRUBIN,TOTAL 0.8 mg/dL (0.2-1.0); TOT PROT 7.9 g/dl (6.4-8.2)
[2016-08-09 00:09] LABS: PLATELET ESTIMATE SLT INCREASED (NORMAL)
[2016-08-09 00:09] LABS: SGOT/AST 31 U/L (15-37)
[2016-08-09] MEDS ORDERED: SODIUM CHLORIDE 0.9% 500 ML INFUS.BAG IV ONE (02:14)
[2016-08-09] MEDS ORDERED: ACETAMINOPHEN 1000 MG/100 ML VIAL (NON FORMULARY) IVPB ONE (02:15)
[2016-08-09] MEDS ORDERED: ACETAMINOPHEN INJECTION 100 ML IVPB ONE (02:19)
[2016-08-09 02:48] LABS: URINE APPEARANCE CLOUDY; URINE BILIRUBIN NEGATIVE (NEGATIVE); URINE BLOOD 1+ (NEGATIVE); URINE COLOR YELLOW; URINE GLUCOSE (UA) 3+ (NEGATIVE); URINE KETONE 2+ (NEGATIVE); URINE LEUK ESTERASE TRACE (NEGATIVE); URINE NITRITE NEGATIVE (NEGATIVE); URINE PROTEIN 2+ (NEGATIVE); URINE UROBILINOGEN NEGATIVE E.U./dl (0.2-1.0)
[2016-08-09 02:52] LABS: URINE BACTERIA FEW /hpf (NONE SEEN); URINE HYALINE CAST 2 /lpf; URINE MUCUS MANY; URINE RBC 1 /hpf (0-3); URINE WBC 43 /hpf (3-5)
--- NOTE | 2016-08-09 08:14 | HP ---
CHIEF COMPLAINT: 2-3 days of upper abdominal pain associated with nausea and vomiting PCP: Dr. Acevedo ([facility]) HISTORY OF PRESENT ILLNESS Patient is a 26 year old female with a significant past medical history of pyelonephritis, IDDM, DKA and gastroparesis who comes in to the ER with 3 days of upper abdominal pain associated with nausea and vomiting. She denies any fevers at home. She denies any diarrhea or constipation. She denies any chest pain. She was resting comfortable when seen in the ER and was asking for water and ice chips. She was awaiting [facility] surg bed. ER course was notable for: (1) WBC 25.1 (2) Platelets 532, NA 135 (3) Blood glucose 71, negative acetone, anion gap 18 Recent Travel: denies PAST MEDICAL HISTORY: pyelonephritis, IDDM, DKA and gastroparesis PAST SURGICAL HISTORY: Social History: Smoking: yes 1/2 pack daily Alcohol: social Drugs: none Family History: Allergies No Known Allergies Allergy (Verified 05/14/16 17:56) HOME MEDICATIONS: Home Medications Medication Instructions Recorded Insulin Lispro [Humalog] 0 unit SQ ASDIR 07/18/13 Amitriptyline HCl [Elavil -] 3 tab PO DAILY #0 06/27/15 Acetaminophen [Tylenol] 650 mg PO Q4H PRN #20 tablet 01/17/16 Metoclopramide HCl [Reglan] 10 mg PO Q6H PRN #15 tablet 01/17/16 Ranitidine HCl [Zantac] 150 mg PO BID PRN #20 tablet 01/17/16 Insulin Glargine,Hum.rec.anlog 50 units SQ DAILY 08/09/16 [Lantus (nf)] REVIEW OF SYSTEMS CONSTITUTIONAL: Absent: fever, chills, diaphoresis, generalized weakness, malaise, loss of appetite, weight change HEENT: Absent: rhinorrhea, nasal congestion, throat pain, throat swelling, difficulty swallowing, mouth swelling, ear pain, eye pain, visual changes CARDIOVASCULAR: Absent: chest pain, syncope, palpitations, irregular heart rate, lightheadedness , peripheral edema RESPIRATORY: Absent: cough, shortness of breath, dyspnea with exertion, orthopnea, wheezing, stridor, hemoptysis GENITOURINARY: Absent: dysuria, frequency, urgency, hesitancy, hematuria, flank pain, genital pain MUSCULOSKELETAL: Absent: myalgia, arthralgia, joint swelling, back pain, neck pain SKIN: Absent: rash, itching, pallor HEMATOLOGIC/IMMUNOLOGIC: Absent: easy bleeding, easy bruising, lymphadenopathy, frequent infections ENDOCRINE: Absent: unexplained weight gain, unexplained weight loss, heat intolerance, cold intolerance NEUROLOGIC: Absent: headache, focal weakness or paresthesias, dizziness, unsteady gait, seizure, mental status changes, bladder or bowel incontinence PSYCHIATRIC: Absent: anxiety, depression, suicidal or homicidal ideation, hallucinations. PHYSICAL EXAMINATION Vital Signs - 24 hr 08/09/16 07:28 Temperature 98.1 F Pulse Rate [ 106 H Left Apical] Respiratory 18 Rate Blood Pressure 140/98 [Left Arm] O2 Sat by Pulse 97 Oximetry (%) GENERAL: Awake, alert, and fully oriented, in no acute distress. HEAD: Normal with no signs of trauma. EYES: Pupils equal, round and reactive to light, extraocular movements intact, sclera anicteric, conjunctiva clear. No lid lag. EARS, NOSE, THROAT: Ears normal, nares patent, oropharynx clear without exudates. Moist mucous membranes. NECK: Normal range of motion, supple without lymphadenopathy, JVD, or masses. LUNGS: Breath sounds equal, clear to auscultation bilaterally. No wheezes, and no crackles. No accessory muscle use. HEART: Regular rate and rhythm, normal S1 and S2 without murmur, rub or gallop. ABDOMEN: +abdominal pain, +mild abdominal tenderness, +nausea/vomiting +bowel sounds, soft non distended abdomen MUSCULOSKELETAL: Normal range of motion at all joints. No bony deformities or tenderness. No CVA tenderness. UPPER EXTREMITIES: 2+ pulses, warm, well-perfused. No cyanosis. No clubbing. No peripheral edema. LOWER EXTREMITIES: 2+ pulses, warm, well-perfused. No calf tenderness. No peripheral edema. NEUROLOGICAL: Cranial nerves II-XII intact. Normal speech. Normal gait. PSYCHIATRIC: Cooperative. Good eye contact. Appropriate mood and affect. SKIN: Warm, dry, normal turgor, no rashes or lesions noted, normal capillary refill. PHYSICAL EXAMINATION: Vital Signs - 24 hr 09/26/15 15:32 Pulse Rate [ 122 H Apical] Respiratory 22 Rate Blood Pressure 139/99 [Right Arm] O2 Sat by Pulse 100 Oximetry (%) Assessment/Plan: Patient is a 26 year old female with a significant past medical history of pyelonephritis, IDDM, DKA and gastroparesis who comes in to the ER with 3 days of upper abdominal pain associated with nausea and vomiting. She denies any fevers at home. She denies any diarrhea or constipation. She denies any chest pain. She was resting comfortable when seen in the ER and was asking for water and ice chips. She was awaiting med surg bed. GI: Intractable Vomiting/Gastroparesis - acute Assessment/Plan: Keep NPO Start IV reglan, allow ice chips and sips of water as tolerated Clears in a.m. Endocrine: Diabetes Mellitus Assessment/Plan: Blood sugar 71 on arrival, Has had multiple episodes of DKA in the past small ketones, Anion gap 18, serum acetone negative, not in DKA BGMs q 6, Novolog sliding scale and Levemir ID: Leukocytosis Assessment/Plan: WBC elevated @ 25, has been elevated on past admission Unable to rule out acute process ID consulted Continue IVF of NS @ 100cc/hr AMA note: Call received from primary RN that patient wanted to leave AMA and that she was almost out the door. I was unable to re-assess patient and discuss her leaving AMA and discuss risks. I saw patient in the ER but was not able to see her before she left AMA Patient is alert and able to make her own decisions. She signed AMA paper work in RNs presence Visit type - Emergency Visit Emergency Visit: Yes ED Registration Date: 08/09/16 Care time: The patient presented to the Emergency Department on the above date and was hospitalized for further evaluation of their emergent condition. - New Patient This patient is new to me today: Yes Date on this admission: 08/09/16 - Critical Care Critical Care patient: No
[2016-08-09] MEDS ORDERED: METOCLOPRAMIDE HCL INJECTION 10 MG/2 ML VIAL IVPB SCH (08:15)
[2016-08-09] MEDS ORDERED: SODIUM CHLORIDE 1,000 ML IV SCH (08:15)
[2016-08-09] MEDS ORDERED: ACETAMINOPHEN 325 MG TABLET (FP) PO PRN (09:24)
[2016-08-09] MEDS ORDERED: AMITRIPTYLINE HCL 25 MG TABLET (FP) PO SCH (10:00)
[2016-08-09] MEDS ORDERED: INSULIN SLIDING SCALE (NOVOLOG) 1 VIAL SQ SCH (11:00)
[2016-08-09 14:10] VITALS: BP 137/76; PULSE 112; TEMP 98.2
--- NOTE | 2016-08-09 16:26 | EKG ---
Test Reason : Blood Pressure : / mmHG Vent. Rate : 133 BPM Atrial Rate : 133 BPM P-R Int : 122 ms QRS Dur : 066 ms QT Int : 318 ms P-R-T Axes : 043 027 010 degrees QTc Int : 473 ms SINUS TACHYCARDIA POSSIBLE LEFT ATRIAL ENLARGEMENT BORDERLINE ECG WHEN COMPARED WITH ECG OF 15-MAY-2016 18:36, NO SIGNIFICANT CHANGE WAS FOUND Confirmed by CAROLINA MORALES MD ([id number]) on 08/09/2016 4:26:20 PM Referred By: Confirmed By:CAROLINA MORALES MD
[2016-08-09] MEDS ORDERED: HEPARIN NA (PORCINE) 5,000 UNITS/ML 1ML VIAL SQ SCH (22:00)
[2016-08-09] MEDS ORDERED: INSULIN DETEMIR 100 UNITS/ML MDV SQ SCH (22:00)
== END 2016-08-09 14:15 | disposition left against medical advice (07) | DRG 48 ==
LOC: JER 21:55 → JERBED 08-09 07:09 → J5S 08-09 11:25 → OBSVTOIN 08-09 12:02
PROVIDERS: ADMIT Internal Medicine; ATTEND Nurse Practitioner Family
DX: E10.43 Type 1 diabetes mellitus with diabetic autonomic (poly)neuropathy (principal); K31.84 Gastroparesis; F41.8 Other specified anxiety disorders; E10.40 Type 1 diabetes mellitus with diabetic neuropathy, unspecified; E10.10 Type 1 diabetes mellitus with ketoacidosis without coma; F17.210 Nicotine dependence, cigarettes, uncomplicated; D72.828 Other elevated white blood cell count; E86.0 Dehydration
CPT/HCPCS: 36415; 71020-TC; 74020-TC; 80053; 81003; 81015; 82009; 83690; 84703; 85027; 87077; 87086; 93005; 93010; 99285-25; G0378

== ENCOUNTER 2016-11-05 13:45 | Inpatient (IN) | payer OTHER ==
--- NOTE | 2016-11-05 13:53 | PDOC ---
Attending Attestation - HPI HPI: 11/05/16 14:42 26 y/o F with a PMHx of IDDM and gastroparesis presents to the ED with worsening abdominal pain. Patient rates the pain an 8/10 and states the pain radiates to her chest. She reports associated nausea and vomiting. Patient also reports subjective fever. Patient states the symptoms are similar to her prior episodes of gastroparesis and DKA. She did not take any medication for the pain. Denies chest pain, SOB. Denies chills, diarrhea, constipation. Denies urinary complaints. SHx: tobacco use ( pack/day), marijuana use Surgeries: none Allergies: none - Physicial Exam PE: 11/05/16 14:46 GENERAL: Awake, alert, and fully oriented, appears uncomfortable HEAD: No signs of trauma EYES: PERRLA, EOMI, sclera anicteric, conjunctiva clear ENT: Auricles normal inspection, hearing grossly normal, nares patent, oropharynx clear without exudates. Dry mucosa NECK: Normal ROM, supple, no lymphadenopathy, JVD, or masses LUNGS: Breath sounds equal, clear to auscultation bilaterally. No wheezes, and no crackles HEART: Regular rate and rhythm, normal S1 and S2, no murmurs, rubs or gallops ABDOMEN: Bilateral upper quadrant tenderness. Soft, normoactive bowel sounds. No guarding, no rebound. No masses EXTREMITIES: Normal range of motion, no edema. No clubbing or cyanosis. No cords, erythema, or tenderness NEUROLOGICAL: Cranial nerves II through XII grossly intact. Normal speech, normal gait SKIN: Warm, Dry, normal turgor, no rashes or lesions noted. <Leana Baum - Last Filed: 11/05/16 14:45> - Resident Resident Name: Nishi Awad - ED Attending Attestation I have performed the following: I have examined & evaluated the patient, The case was reviewed & discussed with the resident, I agree w/resident's findings & plan, Exceptions are as noted - Medical Decision Making Patient presents with extremely elevated blood glucose, diffuse abdominal pain. Suspect DKA. Labs sent, patient found to have leukocytosis (seen on prior admission, but not before that, unclear etiology). Will cover with empiric antibiotics. Awaiting CMP and acetone- endorsed to Dr. Priscilla at 5pm shift change. Plan for admission. <Lacie Velasco - Last Filed: 11/06/16 21:12>
[2016-11-05] MEDS ORDERED: SODIUM CHLORIDE 1,000 ML IV STA ×3 (14:22→18:10)
--- NOTE | 2016-11-05 14:37 | PDOC ---
History of Present Illness - General Chief Complaint: Blood Sugar Problem Stated Complaint: DIABETIC Time Seen by Provider: 11/05/16 13:45 History Source: Patient, EMS Exam Limitations: No Limitations - History of Present Illness Initial Comments: This is a 26 yo female with IDDM and gastroparesis who presents BIBA with vomiting and abdominal pain since yesterday. EMS reports that her CBG was 520 on scene and she was actively vomiting, so they gave her 4 mg Zofran ODT. The patient notes that her abdominal pain is at 8/10 and all over the abdomen but is worse in the upper mid-abdomen and radiates to her chest. It has been worsening since yesterday. She took her regular long-acting insulin yesterday but has not taken her sliding scale today because she has only been able to keep down a small amount of milk and no foods. These symptoms feel the same as her prior flares of gastroparesis and as her prior episodes of DKA. She additionally notes feeling shaky and also hot but has not measured her temperature at home. She denies chilld, diarrhea, constipation, dysuria, blood in the vomit or stool, or other symptoms. Her LMP was two weeks ago. Past History - Past Medical History Allergies/Adverse Reactions: Allergies Allergy/AdvReac Type Severity Reaction Status Date / Time No Known Allergies Allergy Verified 11/05/16 14:10 Home Medications: Ambulatory Orders Insulin Lispro [Humalog] 0 unit SQ ASDIR 07/18/13 Amitriptyline HCl [Elavil -] 3 tab PO DAILY #0 06/27/15 Acetaminophen [Tylenol] 650 mg PO Q4H PRN #20 tablet 01/17/16 Metoclopramide HCl [Reglan] 10 mg PO Q6H PRN #15 tablet 01/17/16 Ranitidine HCl [Zantac] 150 mg PO BID PRN #20 tablet 01/17/16 Insulin Glargine,Hum.rec.anlog [Lantus (nf)] 50 units SQ DAILY 08/09/16 Anemia: No Asthma: No Cancer: No Cardiac Disorders: No CVA: No COPD: No CHF: No Dementia: No Diabetes: Yes GI Disorders: Yes (gastroparesis) Disorders: No HTN: No Hypercholesterolemia: No Liver Disease: No Psychiatric Problems: Yes (ANXIETY DEPRESSION) Suicide Attempt (Hx): No Seizures: No Thyroid Disease: No - Surgical History Abdominal Surgery: No Appendectomy: No Cardiac Surgery: No Cholecystectomy: No Lung Surgery: No Neurologic Surgery: No Orthopedic Surgery: No - Family Disease History Family Disease History: Diabetes: Grandparents (great-grandmother) - Immunization History Immunization Up to Date: Yes - Psycho/Social/Smoking Cessation Hx Anxiety: No Suicidal Ideation: No Smoking Status: No Smoking History: Current some day smoker Have you smoked in the past 12 months: Yes Number of Cigarettes Smoked Daily: 10 Information on smoking cessation initiated: No 'Breaking Loose' booklet given: 08/09/16 Hx Alcohol Use: No Drug/Substance Use Hx: No Substance Use Type: None Hx Substance Use Treatment: No Review of Systems - Review of Systems Able to Perform ROS?: Yes Constitutional: Yes: Other (feeling hot). No: Chills, Unexplained wgt Loss HEENTM: No: Nose Congestion, Throat Pain Respiratory: No: Cough, Shortness of Breath Cardiac (ROS): Yes: Chest Pain (radiating pain from the abdomen). No: Palpitations ABD/GI: Yes: Nausea, Vomiting, Other (abdominal pain). No: Constipated, Diarrhea : No: Burning, Dysuria Musculoskeletal: No: Back Pain, Neck Pain Integumentary: No: Bruising, Rash Neurological: Yes: Tremors. No: Headache, Numbness, Tingling, Weakness, Dizziness Endocrine: No: Unexplained Weight Gain, Unexplained Weight Loss *Physical Exam - Vital Signs Last Vital Signs Temp Pulse Resp BP Pulse Ox 141 H 18 166/131 99 11/05/16 13:52 11/05/16 13:52 11/05/16 13:52 11/05/16 13:52 - Physical Exam General Appearance: Yes: Nourished, Appropriately Dressed, Moderate Distress, Other (appears uncomfortable, laying on side and holding abdomen with arms, wretching but no emesis) HEENT: positive: EOMI, Normal Voice, Hearing Grossly Normal. negative: Scleral Icterus (R), Scleral Icterus (L), Nasal Congestion Neck: positive: Trachea midline, Supple. negative: Tender, Rigid Respiratory/Chest: positive: Lungs Clear, Normal Breath Sounds. negative: Respiratory Distress, Crackles, Rhonchi, Stridor, Wheezing Cardiovascular: positive: Regular Rhythm, Tachycardia. negative: Edema, Murmur Gastrointestinal/Abdominal: positive: Normal Bowel Sounds, Tender (mild diffuse tenderness), Soft. negative: Organomegaly, Pulsatile Mass, Guarding, Rebound Musculoskeletal: positive: Normal Inspection. negative: Decreased Range of Motion, Vertebral Tenderness Extremity: positive: Normal Capillary Refill, Normal Inspection, Normal Range of Motion. negative: Tender, Cyanosis Integumentary: positive: Normal Color, Dry, Warm. 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 ED Treatment Course - LABORATORY CBC & Chemistry Diagram: 11/06/16 06:00 11/06/16 06:00 - RADIOLOGY Radiograph Interpretation: CXR without e/o acute cardiopulmonary processes Medical Decision Making - Medical Decision Making 26 yo female with h/o IDDM and gastroparesis p/w abdominal pain, vomiting, and hyperglycemia. EMS notes CBG was 520, HR was 115, on exam here in the ED she is tachycardic with abdominal tenderness, vomiting. DDX includes DKA, HHS, or simple hyperglycemia associated with medication non- adherence, infection, ACS, or other insult. Primary infectious concerns would be for UTI, PNA, and skin infection (feet in particular). Ordered is CBCD, CMP, Mg, Phos, lipase, serum acetone, serum preg, EKG, UA, CXR , NS bolus, and morphine. 11/05/16 16:36 Chemistries hemolyzed per Lab phone call taken by excellent Dr. Kunal Marion. 11/05/16 18:05 RN spoke with Lab who reports serum acetone is 2. On CMP anion gap was 14. Pt will get a bolus of 6U IV insulin, also a third liter NS. Will subsequently repeat the CMP and get lactate at that time. Pt's WBC count is found to be 34.3, but interestingly has been even higher on prior labs here at [facility]. Has previously been attributed to leukemoid reaction. However the patient's lactate is also found to be 3.2 and thus blood cultures are taken and she is given vancomycin. The patient is admitted for further workup and management. *DC/Admit/Observation/Transfer Diagnosis at time of Disposition: Gastroparesis, Epigastric abdominal pain, Insulin dependent diabetes mellitus, Hyperglycemia Nausea & vomiting Qualifiers: Vomiting type: unspecified Vomiting Intractability: unspecified Qualified Code( s): R11.2 - Nausea with vomiting, unspecified - Discharge Dispostion Disposition: AGAINST MEDICAL ADVICE Condition at time of disposition: Guarded Admit: Yes - Referrals
[2016-11-05] MEDS ORDERED: morphine CARPU-JECT 4 MG/1 ML DISP.SYRIN IVPUSH ONE (15:05)
[2016-11-05] MEDS ORDERED: morphine CARPU-JECT 10 MG/1 ML DISP.SYRIN ONE (15:13)
[2016-11-05 16:05] LABS: MCH 29.7 pg (25.7-33.7); MCHC 33.2 g/dl (32.0-36.0); MEAN CELL VOLUME 89.6 fl (80-96); MEAN PLT VOLUME 8.8 fl (7.5-11.1); PLATELET COUNT 484 K/MM3 (134-434); RDW 15.2 % (11.6-15.6)
[2016-11-05 16:10] LABS: URINE APPEARANCE SLCLOUDY; URINE BILIRUBIN NEGATIVE (NEGATIVE); URINE BLOOD 1+ (NEGATIVE); URINE COLOR LTYELLOW; URINE GLUCOSE (UA) 3+ (NEGATIVE); URINE KETONE 2+ (NEGATIVE); URINE LEUK ESTERASE NEGATIVE (NEGATIVE); URINE NITRITE NEGATIVE (NEGATIVE); URINE UROBILINOGEN NEGATIVE mg/dL (0.2-1.0)
[2016-11-05 16:12] LABS: WHITE BLOOD COUNT 34.3 K/mm3 (4.0-10.0)
[2016-11-05 16:22] LABS: URINE PROTEIN 2+ (NEGATIVE)
[2016-11-05 16:47] LABS: URINE RBC 3 /hpf (0-3); URINE WBC 2 /hpf (3-5)
[2016-11-05] MEDS ORDERED: VANCOMYCIN 1 GRAM (PRE-DOCKED) 1,000 MG/250 ML BAG IVPB ONE (17:19)
[2016-11-05] MEDS ORDERED: VANCOMYCIN 1 GRAM (PRE-DOCKED) 250 ML IVPB ONE (17:29)
[2016-11-05 17:40] LABS: ALBUMIN 3.5 g/dl (3.4-5.0); ALK PHOS 134 U/L (45-117); ANION GAP 14 (8-16); BILIRUBIN,TOTAL 0.7 mg/dL (0.2-1.0); CO2 23 mmol/L (21-32); CREATININE 0.8 mg/dL (0.55-1.02); MAGNESIUM 1.7 mg/dL (1.8-2.4); SGPT/ALT 15 U/L (12-78); TOT PROT 7.3 g/dl (6.4-8.2)
[2016-11-05 17:43] LABS: PLATELET ESTIMATE SLT INCREASED (NORMAL); TOTAL CELLS COUNTED 100
[2016-11-05 17:50] LABS: SGOT/AST < 3 U/L (15-37)
[2016-11-05 17:51] LABS: GLUCOSE,RANDOM 361 mg/dL (74-106)
[2016-11-05 18:03] LABS: ACETONE SERUM POSITIVE MODERATE 2+ (NEGATIVE)
[2016-11-05] MEDS ORDERED: INSULIN REGULAR HUMAN 100 UNITS/ML *VIAL IVPUSH ONE (18:10)
[2016-11-05] MEDS ORDERED: METOCLOPRAMIDE HCL INJECTION 10 MG/2 ML VIAL IVPUSH ONE (18:54)
[2016-11-05] MEDS ORDERED: METOCLOPRAMIDE HCL INJECTION 10 MG/2 ML VIAL ONE (19:32)
--- NOTE | 2016-11-05 20:22 | PN ---
Teaching Attending Note Name of Resident: Ankit Sylvester ATTENDING PHYSICIAN STATEMENT I saw and evaluated the patient. I reviewed the resident's note and discussed the case with the resident. I agree with the resident's findings and plan as documented. SUBJECTIVE: OBJECTIVE: Vital Signs Temperature 98.1 F 11/05/16 18:56 Pulse Rate 115 H 11/05/16 19:37 Respiratory Rate 17 11/05/16 19:37 Blood Pressure 151/86 11/05/16 19:37 O2 Sat by Pulse Oximetry (%) 100 11/05/16 19:37 CBCD WBC 34.3 K/mm3 (4.0-10.0) H* D 11/05/16 15:44 RBC 5.05 M/mm3 (3.60-5.2) 11/05/16 15:44 Hgb 15.0 GM/dL (10.7-15.3) 11/05/16 15:44 Hct 45.2 % (32.4-45.2) 11/05/16 15:44 MCV 89.6 fl (80-96) 11/05/16 15:44 MCHC 33.2 g/dl (32.0-36.0) 11/05/16 15:44 RDW 15.2 % (11.6-15.6) 11/05/16 15:44 Plt Count 484 K/MM3 (134-434) H 11/05/16 15:44 MPV 8.8 fl (7.5-11.1) D 11/05/16 15:44 CMP Sodium 135 mmol/L (136-145) L 11/05/16 17:07 Potassium 4.4 mmol/L (3.5-5.1) 11/05/16 17:07 Chloride 98 mmol/L (98-107) 11/05/16 17:07 Carbon Dioxide 23 mmol/L (21-32) 11/05/16 17:07 Anion Gap 14 (8-16) 11/05/16 17:07 BUN 16 mg/dL (7-18) D 11/05/16 17:07 Creatinine 0.8 mg/dL (0.55-1.02) 11/05/16 17:07 Creat Clearance w eGFR > 60 (>60) 11/05/16 17:07 Calcium 9.0 mg/dL (8.5-10.1) 11/05/16 17:07 Total Bilirubin 0.7 mg/dL (0.2-1.0) 11/05/16 17:07 AST < 3 U/L (15-37) L D 11/05/16 17:07 ALT 15 U/L (12-78) 11/05/16 17:07 Alkaline Phosphatase 134 U/L (45-117) H D 11/05/16 17:07 Total Protein 7.3 g/dl (6.4-8.2) 11/05/16 17:07 Albumin 3.5 g/dl (3.4-5.0) 11/05/16 17:07 ASSESSMENT AND PLAN: SIRS criteria, source undetermined, follow bld cultures, vancomycin and zosyn, IVF ID consult. Uncontrolled DM2 with gastroparesis , IVF, Insulin 15U levemir and RISS. Zofran and protonix.
[2016-11-05] MEDS ORDERED: MAGNESIUM SULF 50% (8.12 MEQ/2 ML-1 GM VIAL) IVPB ONE (21:24)
[2016-11-05] MEDS ORDERED: METOCLOPRAMIDE HCL INJECTION 10 MG/2 ML VIAL IVPUSH PRN (21:26)
[2016-11-05] MEDS ORDERED: SODIUM CHLORIDE 1,000 ML IV SCH (21:30)
[2016-11-05] MEDS ORDERED: INSULIN SLIDING SCALE (NOVOLOG) 1 VIAL SQ SCH (22:00)
--- NOTE | 2016-11-05 22:07 | HP ---
CHIEF COMPLAINT: Abdominal pain and vomiting PCP: Dr. Acevedo HISTORY OF PRESENT ILLNESS: 26 y.o. F with pmh of IDDM and gastroperesis presenting with abdominal pain. Patient states she began having epigastric abdominal pain that began yesterday. Patient describes it as cramping, 8/10, radiating into her chest. She has been hospitalized multiple times in the past for DKA and gastroperesis and she states this pain is similar to those episodes. Patient endorses nausea, 2 episodes of nonblood emesis, hot flashes, decreased appetite, and constipation. She denies chest pain, sob, chills, and diarrhea. Patient did not take her insulin today due to decreased PO intake ER course was notable for: (1) WBC- 34.3 with PMN 93%, Glucose-361, ALP- 134 (2) UA- 2+ protein, 3+ glucose, 2+ ketones, 1+ blood (3 CXR- results pending Recent Travel: denies PAST MEDICAL HISTORY: IDDM, gastroperesis PAST SURGICAL HISTORY: none Social History: Smokin/2 ppd for 10 yrs Alcohol: denies Drugs: + marijuana Family History: DM in grandparents Allergies No Known Allergies Allergy (Verified 11/05/16 14:10) HOME MEDICATIONS: Home Medications Medication Instructions Recorded Insulin Lispro [Humalog] 0 unit SQ ASDIR 07/18/13 Amitriptyline HCl [Elavil -] 3 tab PO DAILY #0 06/27/15 Acetaminophen [Tylenol] 650 mg PO Q4H PRN #20 tablet 01/17/16 Metoclopramide HCl [Reglan] 10 mg PO Q6H PRN #15 tablet 01/17/16 Ranitidine HCl [Zantac] 150 mg PO BID PRN #20 tablet 01/17/16 Insulin Glargine,Hum.rec.anlog 50 units SQ DAILY 08/09/16 [Lantus (nf)] REVIEW OF SYSTEMS CONSTITUTIONAL: Absent: fever, chills, diaphoresis, generalized weakness, malaise, loss of appetite, weight change HEENT: Absent: rhinorrhea, nasal congestion, throat pain, throat swelling, difficulty swallowing, mouth swelling, ear pain, eye pain, visual changes CARDIOVASCULAR: Absent: chest pain, syncope, palpitations, irregular heart rate, lightheadedness , peripheral edema RESPIRATORY: Absent: cough, shortness of breath, dyspnea with exertion, orthopnea, wheezing, stridor, hemoptysis GASTROINTESTINAL: Absent: abdominal pain, abdominal distension, nausea, vomiting, diarrhea, constipation, melena, hematochezia GENITOURINARY: Absent: dysuria, frequency, urgency, hesitancy, hematuria, flank pain, genital pain MUSCULOSKELETAL: Absent: myalgia, arthralgia, joint swelling, back pain, neck pain SKIN: Absent: rash, itching, pallor HEMATOLOGIC/IMMUNOLOGIC: Absent: easy bleeding, easy bruising, lymphadenopathy, frequent infections ENDOCRINE: Absent: unexplained weight gain, unexplained weight loss, heat intolerance, cold intolerance NEUROLOGIC: Absent: headache, focal weakness or paresthesias, dizziness, unsteady gait, seizure, mental status changes, bladder or bowel incontinence PSYCHIATRIC: Absent: anxiety, depression, suicidal or homicidal ideation, hallucinations. PHYSICAL EXAMINATION Vital Signs - 24 hr 11/05/16 19:37 Pulse Rate [ 115 H Right Radial] Respiratory 17 Rate Blood Pressure 151/86 [Left Arm] O2 Sat by Pulse 100 Oximetry (%) GENERAL: Awake, alert, and fully oriented, in no acute distress. HEAD: Normal with no signs of trauma. EYES: Extraocular movements intact, sclera anicteric, conjunctiva clear. No lid lag. EARS, NOSE, THROAT: Ears normal, nares patent, oropharynx clear without exudates. Moist mucous membranes. NECK: Normal range of motion, supple without lymphadenopathy, JVD, or masses. LUNGS: Breath sounds equal, clear to auscultation bilaterally. No wheezes, and no crackles. No accessory muscle use. HEART: Tachycardidc, Regular rhythm, normal S1 and S2 without murmur, rub or gallop. ABDOMEN: Soft, Epigastric tenderness to palpation and percussion, not distended , Hypoactive bowel sounds, no guarding, no rebound, no masses. No hepatomegaly or splenomegaly. MUSCULOSKELETAL: Normal range of motion at all joints. No bony deformities or tenderness. No CVA tenderness. UPPER EXTREMITIES: 2+ pulses, warm, well-perfused. No cyanosis. No clubbing. No peripheral edema. LOWER EXTREMITIES: 2+ pulses, warm, well-perfused. No calf tenderness. No peripheral edema. NEUROLOGICAL: Cranial nerves II-XII intact. Normal speech. Normal gait. PSYCHIATRIC: Cooperative. Good eye contact. Appropriate mood and affect. SKIN: Warm, dry, normal turgor, no rashes or lesions noted, normal capillary refill. ASSESSMENT/PLAN: 26 y.o. F with PMH of IDDM and gastroperesis presented to the hospital with nausea, vomiting, and abdominal pain admitted for gastroperesis and leukocytosis. #Acute Gastroperesis -Clear Liquid Diet, advance diet as tolerated. If pt does not tolerate clear liquids, make NPO -IV reglan 10 mg q6 prn -IVF ns @ 125 cc/hr -IV protonix 40 mg ivpb daily #Uncontrolled IDDM 2/2 to noncompliance -BGM ACHS -ISS ACHS -Add levemir as diet advances per BGM's #Leukocytosis, likely infectious vs leukemoid reaction -Patient received vancomycin in the ED -Patient has chronic leukocytosis has been treated in the past by ID and -BCX pending -UCX pending -CXR pending -Lactic acid pending -IVF @ 125 cc/hr -Give patient zosyn once UCX drawn #FEN/GI -IVF @ 125 cc/hr -Low mg, repleted, continue to monitor -Clear Liquid Diet #PPX -scd's Placed into observation Visit type - Emergency Visit Emergency Visit: Yes ED Registration Date: 11/06/16 Care time: The patient presented to the Emergency Department on the above date and was hospitalized for further evaluation of their emergent condition. - New Patient This patient is new to me today: Yes Date on this admission: 11/08/16 - Critical Care Critical Care patient: No
[2016-11-05] MEDS ORDERED: MAGNESIUM SULF 50% (8.12 MEQ/2 ML-1 GM VIAL) ONE (22:56)
[2016-11-05 23:21] LABS: ALBUMIN 3.5 g/dl (3.4-5.0); ALK PHOS 124 U/L (45-117); ANION GAP 17 (8-16); BILIRUBIN,TOTAL 0.9 mg/dL (0.2-1.0); CALCIUM 8.8 mg/dL (8.5-10.1); CO2 18 mmol/L (21-32); CREATININE 0.9 mg/dL (0.55-1.02); SGOT/AST 7 U/L (15-37); SGPT/ALT 14 U/L (12-78)
[2016-11-05 23:27] LABS: GLUCOSE,RANDOM 337 mg/dL (74-106)
[2016-11-06 01:04] VITALS: BMI 30.8
[2016-11-06 03:19] LABS: ANION GAP 13 (8-16); CALCIUM 7.9 mg/dL (8.5-10.1); CO2 23 mmol/L (21-32); CREATININE 0.6 mg/dL (0.55-1.02); GLUCOSE,RANDOM 248 mg/dL (74-106)
[2016-11-06] MEDS ORDERED: METOCLOPRAMIDE HCL INJECTION 10 MG/2 ML VIAL IVPB PRN (06:06)
[2016-11-06] MEDS ORDERED: KETOROLAC TROMETHAMINE 30 MG/1 ML VIAL IVPUSH ONE (06:11)
[2016-11-06] MEDS: INSULIN SLIDING SCALE (NOVOLOG) 1 VIAL SQ SCH ×3 (06:45→16:17)
[2016-11-06 07:31] LABS: BASOPHIL 0.4 % (0-2.0); MCH 29.8 pg (25.7-33.7); MCHC 33.3 g/dl (32.0-36.0); MEAN CELL VOLUME 89.6 fl (80-96); MEAN PLT VOLUME 8.5 fl (7.5-11.1); NEUTROPHILS 84.2 % (42.8-82.8); PLATELET COUNT 374 K/MM3 (134-434); RDW 14.6 % (11.6-15.6); WHITE BLOOD COUNT 21.4 K/mm3 (4.0-10.0)
[2016-11-06 08:07] LABS: ALBUMIN 3.2 g/dl (3.4-5.0); ALK PHOS 117 U/L (45-117); ANION GAP 14 (8-16); BILIRUBIN,TOTAL 1.1 mg/dL (0.2-1.0); CALCIUM 8.1 mg/dL (8.5-10.1); CO2 22 mmol/L (21-32); CREATININE 0.6 mg/dL (0.55-1.02); GLUCOSE,RANDOM 209 mg/dL (74-106); SGPT/ALT 14 U/L (12-78); TOT PROT 6.6 g/dl (6.4-8.2)
[2016-11-06 08:38] LABS: SGOT/AST 9 U/L (15-37)
--- NOTE | 2016-11-06 09:04 | EKG ---
Test Reason : Blood Pressure : / mmHG Vent. Rate : 132 BPM Atrial Rate : 132 BPM P-R Int : 132 ms QRS Dur : 058 ms QT Int : 300 ms P-R-T Axes : 044 021 025 degrees QTc Int : 444 ms SINUS TACHYCARDIA CANNOT RULE OUT ANTERIOR INFARCT , AGE UNDETERMINED ABNORMAL ECG WHEN COMPARED WITH ECG OF 08-AUG-2016 22:21, NO SIGNIFICANT CHANGE WAS FOUND Confirmed by TERRY SCHILLING MD ([id number]) on 11/06/2016 9:03:44 AM Referred By: Confirmed By:TERRY SCHILLING MD
[2016-11-06] MEDS ORDERED: PANTOPRAZOLE SODIUM 40 MG in DEXTROSE 5%-WATER 100 ML IVPB SCH (10:00)
[2016-11-06] MEDS ORDERED: DEXTROSE 5%-WATER 100 ML IVPB ONE (11:11)
[2016-11-06] MEDS ORDERED: PANTOPRAZOLE SODIUM 40 MG VIAL ONE (11:11)
[2016-11-06] MEDS ORDERED: INSULIN (NOVOLOG) ASPART 100 UNITS/ML 10ML VIAL ONE (11:23)
--- NOTE | 2016-11-06 15:06 | MSN ---
Progress Note (SOAP) - Subjective Chief Complaint: Vomiting History of Present Illness: No overnight events. Pt is still experiencing nausea, had two episodes of vomiting yesterday, has not vomited today. She is still experiencing abdominal pain, but states that it is improving. She denies any chest pain, shortness of breath, fevers, chills, bowel changes, or any other complaints. - Current Medications Current Medications: Active Medications Sodium Chloride (Normal Saline -) 1,000 mls @ 125 mls/hr IV ASDIR [facility] Last Admin: 11/06/16 01:30 Dose: 125 mls/hr Pantoprazole Sodium 40 mg/ (Dextrose) 100 mls @ 200 mls/hr IVPB DAILY [facility] Last Admin: 11/06/16 11:20 Dose: 200 mls/hr Insulin Aspart (Novolog Vial Sliding Scale -) 1 vial SQ ACHS [facility] PRN Reason: Protocol Last Admin: 11/06/16 11:26 Dose: 2 unit Metoclopramide HCl (Reglan Injection -) 10 mg IVPB Q6H PRN PRN Reason: NAUSEA AND/OR VOMITING Last Admin: 11/06/16 06:44 Dose: 10 mg - Objective Vital Signs: Vital Signs Temperature 98.0 F 11/06/16 14:34 Pulse Rate 110 H 11/06/16 14:34 Respiratory Rate 20 11/06/16 14:34 Blood Pressure 137/101 11/06/16 14:34 O2 Sat by Pulse Oximetry (%) 100 11/06/16 01:21 Constitutional: Yes: Well Nourished, Calm, Mild Distress Eyes: Yes: WNL, Conjunctiva Clear, EOM Intact HENT: Yes: WNL, Atraumatic, Normocephalic Neck: Yes: WNL, Supple, Trachea Midline Cardiovascular: Yes: WNL, Regular Rate and Rhythm Respiratory: Yes: WNL, Regular, CTA Bilaterally Gastrointestinal: Yes: WNL, Normal Bowel Sounds, Soft. No: Distention, Hepatomegaly, Melena, Rectal Bleeding, Tenderness, Vomiting ...Rectal Exam: Yes: Deferred Musculoskeletal: Yes: WNL Extremities: Yes: WNL Neurological: Yes: WNL, Alert, Oriented. No: Lethargy, Seizure, Tremors ...Motor Strength: Yes: WNL Psychiatric: Yes: WNL, Alert, Oriented Labs Lab Results: Laboratory Results - last 24 hr 11/05/16 11/05/16 11/05/16 15:44 15:44 15:44 WBC 34.3 H* D RBC 5.05 Hgb 15.0 Hct 45.2 MCV 89.6 MCH 29.7 MCHC 33.2 RDW 15.2 Plt Count 484 H MPV 8.8 D Total Counted 100 Neutrophils % Y Neutrophils % (Manual) 93 H* Band Neuts % (Manual) 1 Lymphocytes % Y Lymphocytes % (Manual) 5 L Monocytes % Monocytes % (Manual) 1 L Eosinophils % Basophils % Other Cell Type Platelet Estimate Slt increased Sodium Potassium Chloride Carbon Dioxide Anion Gap BUN Creatinine Creat Clearance w eGFR POC Glucometer Random Glucose Hemoglobin A1c % Lactic Acid Calcium Phosphorus Magnesium Total Bilirubin AST ALT Alkaline Phosphatase Total Protein Albumin Lipase Cancelled Serum , Qual Urine Color Ltyellow Urine Appearance Slcloudy Urine pH 6.0 Ur Specific [place] 1.020 Urine Protein 2+ H Urine Glucose (UA) 3+ H Urine Ketones 2+ H Urine Blood 1+ H Urine Nitrite Negative Urine Bilirubin Negative Urine Urobilinogen Negative Ur Leukocyte Esterase Negative Urine RBC 3 Urine WBC 2 Ur Epithelial Cells Moderate Acetone, Qual Cancelled 11/05/16 11/05/16 11/05/16 15:44 15:44 17:07 WBC RBC Hgb Hct MCV MCH MCHC RDW Plt Count MPV Total Counted Neutrophils % Neutrophils % (Manual) Band Neuts % (Manual) Lymphocytes % Lymphocytes % (Manual) Monocytes % Monocytes % (Manual) Eosinophils % Basophils % Other Cell Type Platelet Estimate Sodium Cancelled 135 L Potassium Cancelled 4.4 Chloride Cancelled 98 Carbon Dioxide Cancelled 23 Anion Gap Cancelled 14 BUN Cancelled 16 D Creatinine Cancelled 0.8 Creat Clearance w eGFR Cancelled > 60 POC Glucometer Random Glucose Cancelled 361 H* D Hemoglobin A1c % Lactic Acid Calcium Cancelled 9.0 Phosphorus Cancelled 4.0 D Magnesium Cancelled 1.7 L Total Bilirubin Cancelled 0.7 AST Cancelled < 3 L D ALT Cancelled 15 Alkaline Phosphatase Cancelled 134 H D Total Protein Cancelled 7.3 Albumin Cancelled 3.5 Lipase 55 L Serum , Qual Negative Urine Color Urine Appearance Urine pH Ur Specific [place] Urine Protein Urine Glucose (UA) Urine Ketones Urine Blood Urine Nitrite Urine Bilirubin Urine Urobilinogen Ur Leukocyte Esterase Urine RBC Urine WBC Ur Epithelial Cells Acetone, Qual Positive moderate 2+ H 11/05/16 11/05/16 11/05/16 22:02 22:02 22:33 WBC RBC Hgb Hct MCV MCH MCHC RDW Plt Count MPV Total Counted Neutrophils % Neutrophils % (Manual) Band Neuts % (Manual) Lymphocytes % Lymphocytes % (Manual) Monocytes % Monocytes % (Manual) Eosinophils % Basophils % Other Cell Type Platelet Estimate Sodium 133 L Potassium 5.4 H D Chloride 98 Carbon Dioxide 18 L D Anion Gap 17 H BUN 14 Creatinine 0.9 Creat Clearance w eGFR > 60 POC Glucometer Random Glucose 337 H* Hemoglobin A1c % 8.4 H D Lactic Acid 3.2 H* Calcium 8.8 Phosphorus Magnesium Total Bilirubin 0.9 D AST 7 L D ALT 14 Alkaline Phosphatase 124 H Total Protein 7.0 Albumin 3.5 Lipase Serum , Qual Urine Color Urine Appearance Urine pH Ur Specific [place] Urine Protein Urine Glucose (UA) Urine Ketones Urine Blood Urine Nitrite Urine Bilirubin Urine Urobilinogen Ur Leukocyte Esterase Urine RBC Urine WBC Ur Epithelial Cells Acetone, Qual 11/06/16 11/06/16 11/06/16 02:30 02:30 05:59 WBC RBC Hgb Hct MCV MCH MCHC RDW Plt Count MPV Total Counted Neutrophils % Neutrophils % (Manual) Band Neuts % (Manual) Lymphocytes % Lymphocytes % (Manual) Monocytes % Monocytes % (Manual) Eosinophils % Basophils % Other Cell Type Platelet Estimate Sodium 135 L Potassium 4.3 D Chloride 99 Carbon Dioxide 23 D Anion Gap 13 BUN 10 D Creatinine 0.6 D Creat Clearance w eGFR POC Glucometer 213 Random Glucose 248 H D Hemoglobin A1c % Lactic Acid 0.9 Calcium 7.9 L Phosphorus Magnesium Total Bilirubin AST ALT Alkaline Phosphatase Total Protein Albumin Lipase Serum , Qual Urine Color Urine Appearance Urine pH Ur Specific [place] Urine Protein Urine Glucose (UA) Urine Ketones Urine Blood Urine Nitrite Urine Bilirubin Urine Urobilinogen Ur Leukocyte Esterase Urine RBC Urine WBC Ur Epithelial Cells Acetone, Qual 11/06/16 11/06/16 11/06/16 06:00 06:00 11:19 WBC 21.4 H D RBC 4.28 Hgb 12.8 D Hct 38.3 D MCV 89.6 MCH 29.8 MCHC 33.3 RDW 14.6 Plt Count 374 D MPV 8.5 Total Counted Neutrophils % 84.2 H Neutrophils % (Manual) Band Neuts % (Manual) Lymphocytes % 11.8 Lymphocytes % (Manual) Monocytes % 3.6 L Monocytes % (Manual) Eosinophils % 0.0 D Basophils % 0.4 Other Cell Type Platelet Estimate Sodium 133 L Potassium 4.3 Chloride 97 L Carbon Dioxide 22 Anion Gap 14 BUN 10 Creatinine 0.6 Creat Clearance w eGFR > 60 POC Glucometer 181 Random Glucose 209 H Hemoglobin A1c % Lactic Acid Calcium 8.1 L Phosphorus 2.0 L D Magnesium 2.0 Total Bilirubin 1.1 H D AST 9 L D ALT 14 Alkaline Phosphatase 117 Total Protein 6.6 Albumin 3.2 L Lipase Serum , Qual Urine Color Urine Appearance Urine pH Ur Specific [place] Urine Protein Urine Glucose (UA) Urine Ketones Urine Blood Urine Nitrite Urine Bilirubin Urine Urobilinogen Ur Leukocyte Esterase Urine RBC Urine WBC Ur Epithelial Cells Acetone, Qual Imaging - Results Chest X-ray: Report Reviewed, Image Reviewed Assessment/Plan #Acute Gastroperesis -Pt has been tolerating clear liquids and feeling better, advance diet. 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 #Uncontrolled IDDM 2/2 to noncompliance -BGM ACHS. BG improving. -ISS ACHS. -Add levemir as diet advances per BGM's #Leukocytosis, likely leukemoid reaction vs infectious. -Patient received vancomycin in the ED, no further abx until etiology discovered as patient has chronic leukocytosis has been treated in the past by ID. -BCX pending -UCX pending -CXR normal. -Lactic acid pending #FEN/GI -IVF @ 125 cc/hr -Low mg, repleted, continue to monitor. -Clear Liquid Diet, advance as tolerated. #PPX -scd's
[2016-11-06 17:42] VITALS: BP 137/94; PULSE 97; TEMP 98.1
--- NOTE | 2016-11-06 18:13 | PN ---
Physical Exam: SUBJECTIVE: Patient seen and examined at bedside. No new complaints. No vomiting episodes overnight. OBJECTIVE: Vital Signs Period Temp Pulse Resp BP Sys/Plata Pulse Ox Last 24 Hr 98.0 F-98.1 F 97-110 17-20 137-137/94-101 98 GENERAL: The patient is awake, alert, and fully oriented, in no acute distress. HEAD: Normal with no signs of trauma. EYES: extraocular movements intact, sclera anicteric, conjunctiva clear. No ptosis. NECK: Trachea midline, full range of motion, supple. LUNGS: Breath sounds equal, clear to auscultation bilaterally, no wheezes, no crackles, no accessory muscle use. HEART: Regular rate and rhythm, S1, S2 without murmur, rub or gallop. ABDOMEN: Soft, nontender, nondistended, normoactive bowel sounds, no guarding, no rebound. EXTREMITIES: 2+ pulses, warm, well-perfused, no edema. NEUROLOGICAL: Cranial nerves II through X grossly intact. Normal speech, gait not observed. PSYCH: Normal mood, normal affect. SKIN: Warm, dry, normal turgor, no rashes or lesions noted Laboratory Results - last 24 hr 11/06/16 11:19 POC Glucometer 181 Active Medications Generic Name Dose Route Start Last Admin Trade Name Freq PRN Reason Stop Dose Admin Sodium Chloride 1,000 mls @ 125 mls/hr 11/05/16 21:30 11/06/16 01:30 Normal Saline - IV 125 mls/hr ASDIR KARLENE Administration Pantoprazole Sodium 40 mg/ 100 mls @ 200 mls/hr 11/06/16 10:00 11/06/16 11:20 Dextrose IVPB 200 mls/hr DAILY KARLENE Administration Insulin Aspart 1 vial 11/06/16 06:10 11/06/16 11:26 Novolog Vial Sliding Scale - SQ 2 unit ACHS KARLENE Administration Protocol Metoclopramide HCl 10 mg 11/06/16 06:06 11/06/16 06:44 Reglan Injection - IVPB 10 mg Q6H PRN Administration NAUSEA AND/OR VOMITING ASSESSMENT/PLAN: 26 yo f w/ PMH DM and gastroparesis presents with nausea, vomiting and abdominal pain. Admitted for gastroparesis and leukocytosis #Acute Gastroperesis -Pt has been tolerating clear liquids and feeling better, advance diet as tolerated. -IV reglan 10 mg q6 prn -IVF ns @ 125 cc/hr -IV protonix 40 mg ivpb daily -Pt wants to see a new cloth examiner machine, will recommend one for follow up on discharge. #Uncontrolled IDDM 2/2 to noncompliance -BGM ACHS. BG improving. -ISS ACHS. -Add levemir as diet advances per BGM's -anion gap closed #Leukocytosis, likely leukemoid reaction vs infectious. -Patient received vancomycin in the ED, no further abx until etiology discovered as patient has chronic leukocytosis has been treated in the past by ID. -afebrile -BCX pending -UCX pending -CXR normal. -Lactic acid .9 today -recommend Heme-onc referral for leukocytosis workup as outpatient #FEN/GI -IVF @ 125 cc/hr -monitor. -Clear Liquid Diet, advance as tolerated. #PPX -scd's Dispo: -admitted for control of sugars and for fluid support during vomiting episodes. Problem List - Problems (1) Epigastric abdominal pain Code(s): R10.13 - EPIGASTRIC PAIN (2) Gastroparesis due to DM Code(s): E11.43 - TYPE 2 DIABETES W DIABETIC AUTONOMIC (POLY)NEUROPATHY K31.84 - GASTROPARESIS (3) Hyperglycemia Code(s): R73.9 - HYPERGLYCEMIA, UNSPECIFIED (4) Hypertension Code(s): I10 - ESSENTIAL (PRIMARY) HYPERTENSION Visit type - Emergency Visit Emergency Visit: Yes ED Registration Date: 11/06/16 Care time: The patient presented to the Emergency Department on the above date and was hospitalized for further evaluation of their emergent condition. - New Patient This patient is new to me today: Yes Date on this admission: 11/06/16 - Critical Care Critical Care patient: No
--- NOTE | 2016-11-06 18:44 | PN ---
Teaching Attending Note Name of Resident: David Tavares ATTENDING PHYSICIAN STATEMENT I saw and evaluated the patient. I reviewed the resident's note and discussed the case with the resident. I agree with the resident's findings and plan as documented. SUBJECTIVE: Abdominal pain is better. She still complains of nausea. OBJECTIVE: Vital Signs Period Temp Pulse Resp BP Sys/Plata Pulse Ox Last 24 Hr 97.8 F-98.6 F 97-122 16-20 137-151/86-101 98-100 HEART: S1S2, RRR LUNGS: Clear ABDOMEN: Soft, non-tender, non-distended, normal BS EXTREMITIES: No edema Current Medications Generic Name Dose Route Start Last Admin Trade Name Freq PRN Reason Stop Dose Admin Sodium Chloride 1,000 mls @ 125 mls/hr 11/05/16 21:30 11/06/16 01:30 Normal Saline - IV 125 mls/hr ASDIR KARLENE Administration Pantoprazole Sodium 40 mg/ 100 mls @ 200 mls/hr 11/06/16 10:00 11/06/16 11:20 Dextrose IVPB 200 mls/hr DAILY KARLENE Administration Insulin Aspart 1 vial 11/06/16 06:10 11/06/16 16:17 Novolog Vial Sliding Scale - SQ Not Given ACHS KARLENE Protocol Metoclopramide HCl 10 mg 11/06/16 06:06 11/06/16 06:44 Reglan Injection - IVPB 10 mg Q6H PRN Administration NAUSEA AND/OR VOMITING ASSESSMENT AND PLAN: This is a 26 year old woman with a history of IDDM, diabetic gastroparesis who presented to the ER with nausea, vomiting, and abdominal pain. 1. Diabetic gastroparesis - Improving - Advance diet as tolerated - Continue IV fluid, Reglan 2. Uncontrolled type I DM - Continue Novolog sliding scale 3. SIRS with leukocytosis, tachycardia - Possibly secondary to acute gastroenteritis - Has chronic leukocytosis - No evidence of sepsis - no antibiotics at this time - Blood cultures negative after 24 hours
== END 2016-11-06 18:50 | disposition left against medical advice (07) | DRG 48 ==
LOC: JER 13:45 → JERBED 19:25 → J7W 11-06 00:47 → OBSVTOIN 11-06 07:02
PROVIDERS: ADMIT Internal Medicine; ATTEND Internal Medicine
DX: E10.43 Type 1 diabetes mellitus with diabetic autonomic (poly)neuropathy (principal); R65.10 Systemic inflammatory response syndrome (SIRS) of non-infectious origin without acute organ dysfunction; E10.65 Type 1 diabetes mellitus with hyperglycemia; K31.84 Gastroparesis; F12.10 Cannabis abuse, uncomplicated; Z79.4 Long term (current) use of insulin; F17.210 Nicotine dependence, cigarettes, uncomplicated; F41.9 Anxiety disorder, unspecified; F32.9 Major depressive disorder, single episode, unspecified; Z91.14 Patient's other noncompliance with medication regimen; D72.829 Elevated white blood cell count, unspecified; R00.0 Tachycardia, unspecified
CPT/HCPCS: 36415; 71010-TC; 80048; 80053; 81003; 81015; 82009; 83036; 83605; 83690; 83735; 84100; 84703; 85025; 87040; 93005; 93010; 99285-25; G0378

== ENCOUNTER 2016-12-07 16:50 | Inpatient (IN) | payer OTHER ==
--- NOTE | 2016-12-07 17:14 | PDOC ---
Attending Attestation - Resident Resident Name: Kiki Banks (]) - ED Attending Attestation I have performed the following: I have examined & evaluated the patient, The case was reviewed & discussed with the resident, I agree w/resident's findings & plan, Exceptions are as noted - HPI HPI: 12/08/16 00:46 26 yo female had epigastric discomfort and vomiting 40 minutes prior to arrival . Long-standing history of insulin independent diabetes and gastroparesis. She does normally take Reglan on a daily basis 12/08/16 01:33 - Physicial Exam PE: 12/08/16 01:34 Well-nourished well-developed 26-year-old female who is tearful and has complaint of epigastric burning nausea and vomiting HEENT is within normal limits Lungs are clear to auscultation bilaterally CVS regular rate and rhythm S1, S2 Abdomen. No rebound and no guarding. She has epigastric tenderness Extremities full range of motion, no deformity Neuro alert and oriented 3. No gross focal neural deficits 12/08/16 02:12 - Medical Decision Making 12/08/16 01:59 Patient has had persistent vomiting despite antiemetics. Will admit to [facility] on this. In reviewing her labs, she has a chronic leukocytosis. She has no fever here and no abdominal rebound or guarding, but does have complaint of epigsdatric discomfort after vomiting 12/08/16 02:27 DISCUSSED W HOSPITALIST/ADMIT MED/SURG obs
[2016-12-07] MEDS ORDERED: ONDANSETRON 4 MG/2 ML VIAL IVPB ONE (17:30)
[2016-12-07] MEDS ORDERED: SODIUM CHLORIDE 1,000 ML IV STA ×2 (17:30→21:53)
[2016-12-07] MEDS ORDERED: METOCLOPRAMIDE HCL INJECTION 10 MG/2 ML VIAL IVPB ONE (17:30)
[2016-12-07] MEDS ORDERED: METOCLOPRAMIDE HCL INJECTION 10 MG/2 ML VIAL ONE (17:43)
[2016-12-07] MEDS ORDERED: ONDANSETRON 4 MG/2 ML VIAL ONE (17:43)
[2016-12-07 17:47] LABS: BASOPHIL 0.4 % (0-2.0); EOSINOPHIL 0.1 % (0-4.5); MCH 31.1 pg (25.7-33.7); MCHC 34.1 g/dl (32.0-36.0); MEAN CELL VOLUME 91.2 fl (80-96); MEAN PLT VOLUME 7.9 fl (7.5-11.1); NEUTROPHILS 87.8 % (42.8-82.8); PLATELET COUNT 388 K/MM3 (134-434); RDW 14.8 % (11.6-15.6); WHITE BLOOD COUNT 17.8 K/mm3 (4.0-10.0)
[2016-12-07 18:01] LABS: URINE APPEARANCE CLOUDY; URINE BILIRUBIN NEGATIVE (NEGATIVE); URINE BLOOD 1+ (NEGATIVE); URINE COLOR YELLOW; URINE GLUCOSE (UA) 3+ (NEGATIVE); URINE KETONE 1+ (NEGATIVE); URINE NITRITE NEGATIVE (NEGATIVE); URINE UROBILINOGEN NEGATIVE mg/dL (0.2-1.0)
[2016-12-07 18:04] LABS: URINE LEUK ESTERASE 3+ (NEGATIVE); URINE PROTEIN 2+ (NEGATIVE)
[2016-12-07 18:05] LABS: URINE BACTERIA RARE /hpf (NONE SEEN); URINE MUCUS RARE; URINE RBC 8 /hpf (0-3); URINE WBC 746 /hpf (3-5)
[2016-12-07 18:13] LABS: ALBUMIN 3.4 g/dl (3.4-5.0); ANION GAP 7 (8-16); BILIRUBIN,TOTAL 0.4 mg/dL (0.2-1.0); CALCIUM 9.6 mg/dL (8.5-10.1); CO2 29 mmol/L (21-32); CREATININE 0.8 mg/dL (0.55-1.02); GLUCOSE,RANDOM 295 mg/dL (74-106); SGOT/AST 8 U/L (15-37); SGPT/ALT 15 U/L (12-78); TOT PROT 7.3 g/dl (6.4-8.2)
[2016-12-07 18:14] LABS: ALK PHOS 127 U/L (45-117)
[2016-12-07] MEDS ORDERED: SULFAMETHOXAZOLE/TRIMETHOPRIM 800MG/160MG D.S. TABLET PO ONE (21:30)
[2016-12-07] MEDS ORDERED: SULFAMETHOXAZOLE/TRIMETHOPRIM 800MG/160MG D.S. TABLET ONE (21:52)
[2016-12-08] MEDS ORDERED: ONDANSETRON 4 MG/2 ML VIAL ONE (01:03)
[2016-12-08] MEDS ORDERED: METOCLOPRAMIDE HCL INJECTION 10 MG/2 ML VIAL ONE (01:03)
[2016-12-08] MEDS ORDERED: ONDANSETRON 4 MG/2 ML VIAL IVPUSH ONE (01:24)
[2016-12-08 01:25] LABS: BASOPHIL 0.3 % (0-2.0); EOSINOPHIL 0.1 % (0-4.5); MCH 30.5 pg (25.7-33.7); MCHC 33.5 g/dl (32.0-36.0); MEAN CELL VOLUME 91.1 fl (80-96); MEAN PLT VOLUME 8.1 fl (7.5-11.1); NEUTROPHILS 82.8 % (42.8-82.8); PLATELET COUNT 428 K/MM3 (134-434); RDW 14.7 % (11.6-15.6); WHITE BLOOD COUNT 19.1 K/mm3 (4.0-10.0)
[2016-12-08] MEDS ORDERED: METOCLOPRAMIDE HCL INJECTION 10 MG/2 ML VIAL IVPUSH ONE (01:27)
[2016-12-08] MEDS ORDERED: LEVOFLOXACIN 500 MG IVPB 100 ML IVPB ONE ×2 (01:55→02:08)
--- NOTE | 2016-12-08 02:03 | PN ---
Teaching Attending Note Name of Resident: Zheng Parks ATTENDING PHYSICIAN STATEMENT I saw and evaluated the patient. I reviewed the resident's note and discussed the case with the resident. I agree with the resident's findings and plan as documented. SUBJECTIVE: 26 yo F with hx. of IDDM and Gastroparesis, who presents with epigastric pain and vomiting. OBJECTIVE: Physical: VS: Vital Signs Period Temp Pulse Resp BP Sys/Plata Pulse Ox Last 24 Hr 98 F 113 20 139/94 95 GEN: NAD, Resting in bed, AA0X3 HEENT:NCAT, PERRL, Throat without erythema or exudates CARD: RRR S1,S2 RESP: CTAB ABD: BSX4, Mild epigastric tenderness EXT: - C/C/E CBCD WBC 16.9 K/mm3 (4.0-10.0) H 12/08/16 01:51 RBC 4.13 M/mm3 (3.60-5.2) 12/08/16 01:51 Hgb 12.7 GM/dL (10.7-15.3) 12/08/16 01:51 Hct 37.9 % (32.4-45.2) 12/08/16 01:51 MCV 91.8 fl (80-96) 12/08/16 01:51 MCHC 33.6 g/dl (32.0-36.0) 12/08/16 01:51 RDW 14.7 % (11.6-15.6) 12/08/16 01:51 Plt Count 371 K/MM3 (134-434) 12/08/16 01:51 MPV 8.1 fl (7.5-11.1) 12/08/16 01:51 CMP Sodium 136 mmol/L (136-145) 12/07/16 17:20 Potassium 4.3 mmol/L (3.5-5.1) 12/07/16 17:20 Chloride 100 mmol/L (98-107) 12/07/16 17:20 Carbon Dioxide 29 mmol/L (21-32) D 12/07/16 17:20 Anion Gap 7 (8-16) L 12/07/16 17:20 BUN 14 mg/dL (7-18) D 12/07/16 17:20 Creatinine 0.8 mg/dL (0.55-1.02) D 12/07/16 17:20 Creat Clearance w eGFR > 60 (>60) 12/07/16 17:20 Random Glucose 295 mg/dL (74-106) H D 12/07/16 17:20 Calcium 9.6 mg/dL (8.5-10.1) 12/07/16 17:20 Total Bilirubin 0.4 mg/dL (0.2-1.0) D 12/07/16 17:20 AST 8 U/L (15-37) L 12/07/16 17:20 ALT 15 U/L (12-78) 12/07/16 17:20 Alkaline Phosphatase 127 U/L (45-117) H 12/07/16 17:20 Total Protein 7.3 g/dl (6.4-8.2) 12/07/16 17:20 Albumin 3.4 g/dl (3.4-5.0) 12/07/16 17:20 Ambulatory Orders Insulin Lispro [Humalog] 0 unit SQ ASDIR 07/18/13 Amitriptyline HCl [Elavil -] 3 tab PO DAILY #0 06/27/15 Acetaminophen [Tylenol] 650 mg PO Q4H PRN #20 tablet 01/17/16 Metoclopramide HCl [Reglan] 10 mg PO Q6H PRN #15 tablet 01/17/16 Ranitidine HCl [Zantac] 150 mg PO BID PRN #20 tablet 01/17/16 Insulin Glargine,Hum.rec.anlog [Lantus (nf)] 50 units SQ DAILY 08/09/16 LA- 7.6 ASSESSMENT AND PLAN: 20 yo F with pmhx of IDDM and gastroparesis, found to be severely septic secondary to UTI 1.) Sepsis Severe - Most likley Secondary to UTI, if no resolution of LA, consider miller scan - Ceftriaxone - Miller Cx - Although pt. does have chronic leukocytosis that warrents a H/O eval - LA - IVF 2.) IDDM - FS - RAISS - Lantus 3.) Diabetic Gastroparesis - Reglan 4.) Dvt Ppx - Low Risk - Heparin [address] in Med-Sx
[2016-12-08 02:11] LABS: BASOPHIL 0.4 % (0-2.0); EOSINOPHIL 0.1 % (0-4.5); MCH 30.8 pg (25.7-33.7); MCHC 33.6 g/dl (32.0-36.0); MEAN CELL VOLUME 91.8 fl (80-96); MEAN PLT VOLUME 8.1 fl (7.5-11.1); NEUTROPHILS 83.5 % (42.8-82.8); PLATELET COUNT 371 K/MM3 (134-434); RDW 14.7 % (11.6-15.6); WHITE BLOOD COUNT 16.9 K/mm3 (4.0-10.0)
--- NOTE | 2016-12-08 02:44 | PDOC ---
*Physical Exam - Vital Signs Last Vital Signs Temp Pulse Resp BP Pulse Ox 98 F 113 H 20 139/94 95 12/07/16 17:19 12/07/16 17:19 12/07/16 17:19 12/07/16 17:19 12/07/16 17:19 ED Treatment Course - LABORATORY CBC & Chemistry Diagram: 12/08/16 01:51 12/07/16 17:20 - ADDITIONAL ORDERS Additional order review: Laboratory Results 12/07/16 12/07/16 12/07/16 17:33 17:33 17:20 Sodium 136 Potassium 4.3 Chloride 100 Carbon Dioxide 29 D Anion Gap 7 L BUN 14 D Creatinine 0.8 D Creat Clearance w eGFR > 60 POC Glucometer Random Glucose 295 H D Calcium 9.6 Total Bilirubin 0.4 D AST 8 L ALT 15 Alkaline Phosphatase 127 H Total Protein 7.3 Albumin 3.4 Lipase 44 L Serum , Qual Negative Urine Color Yellow Urine Appearance Cloudy Urine pH 6.0 Ur Specific [place] 1.015 Urine Protein 2+ H Urine Glucose (UA) 3+ H Urine Ketones 1+ H Urine Blood 1+ H Urine Nitrite Negative Urine Bilirubin Negative Urine Urobilinogen Negative Urine RBC 8 Urine WBC 746 Ur Epithelial Cells Moderate Urine Bacteria Rare Urine Mucus Rare 12/07/16 17:17 Sodium Potassium Chloride Carbon Dioxide Anion Gap BUN Creatinine Creat Clearance w eGFR POC Glucometer [phone] Random Glucose Calcium Total Bilirubin AST ALT Alkaline Phosphatase Total Protein Albumin Lipase Serum , Qual Urine Color Urine Appearance Urine pH Ur Specific [place] Urine Protein Urine Glucose (UA) Urine Ketones Urine Blood Urine Nitrite Urine Bilirubin Urine Urobilinogen Urine RBC Urine WBC Ur Epithelial Cells Urine Bacteria Urine Mucus 12/08/16 12/08/16 12/07/16 01:51 00:50 17:20 RBC 4.13 4.44 4.41 MCV 91.8 91.1 91.2 MCHC 33.6 33.5 34.1 RDW 14.7 14.7 14.8 MPV 8.1 8.1 7.9 Neutrophils % 83.5 H 82.8 87.8 H Lymphocytes % 11.7 12.3 D 9.2 D Monocytes % 4.3 4.5 2.5 L Eosinophils % 0.1 0.1 0.1 D Basophils % 0.4 0.3 0.4 POC Glucometer 12/07/16 17:17 RBC MCV MCHC RDW MPV Neutrophils % Lymphocytes % Monocytes % Eosinophils % Basophils % POC Glucometer [phone] - Medications Given in the ED: ED Medications Discontinued Medications Generic Name Dose Route Start Last Admin Trade Name Monika PRN Reason Stop Dose Admin Diphenhydramine HCl 25 mg 12/07/16 17:30 12/07/16 17:54 Benadryl Injection - IVPUSH 12/07/16 17:31 25 mg ONCE ONE Administration Diphenhydramine HCl 25 mg 12/08/16 01:27 12/08/16 01:28 Benadryl Injection - IVPUSH 12/08/16 01:28 25 mg NOW ONE Administration Sodium Chloride 1,000 mls @ 1,000 mls/hr 12/07/16 17:30 12/07/16 17:54 Normal Saline - IV 12/07/16 18:29 1,000 mls/hr ASDIR STA Administration Sodium Chloride 1,000 mls @ 1,000 mls/hr 12/07/16 21:53 12/07/16 21:59 Normal Saline - IV 12/07/16 22:52 1,000 mls/hr ASDIR STA Administration Metoclopramide HCl 10 mg 12/07/16 17:30 12/07/16 18:13 Reglan Injection - IVPB 12/07/16 17:31 10 mg ONCE ONE Administration Metoclopramide HCl 10 mg 12/08/16 01:27 12/08/16 01:27 Reglan Injection - IVPUSH 12/08/16 01:28 10 mg NOW ONE Administration Ondansetron HCl 4 mg 12/07/16 17:30 12/07/16 17:54 Zofran Injection IVPB 12/07/16 17:31 4 mg ONCE ONE Administration Ondansetron HCl 4 mg 12/08/16 01:24 12/08/16 01:26 Zofran Injection IVPUSH 12/08/16 01:25 4 mg NOW ONE Administration Trimethoprim/Sulfamethoxazole 1 each 12/07/16 21:30 12/07/16 21:59 Bactrim Ds - PO 12/07/16 21:31 1 each ONCE ONE Administration *DC/Admit/Observation/Transfer Diagnosis at time of Disposition: Dehydration, Gastroparesis, Hyperglycemia UTI (urinary tract infection) Qualifiers: Urinary tract infection type: acute cystitis Hematuria presence: without hematuria Qualified Code(s): N30.00 - Acute cystitis without hematuria; N30.00 - Acute cystitis without hematuria - Discharge Dispostion Admit: Yes
[2016-12-08] MEDS ORDERED: METOCLOPRAMIDE HCL INJECTION 10 MG/2 ML VIAL IVPB SCH (03:00)
[2016-12-08] MEDS ORDERED: CEFTRIAXONE 1 GM in DEXTROSE 5%-WATER - 50 ML IVPB ONE (03:00)
--- NOTE | 2016-12-08 03:17 | HP ---
CHIEF COMPLAINT: Nausea & vomiting PCP: HISTORY OF PRESENT ILLNESS: Pt is a 26F with PMH IDDM with gastroparesis, chronic leukocytosis who presents to ED with intractable nausea and vomiting. Pt has prior visits for similar complaint. Pt is having vomiting in spite of taking standing Reglan at home. Nausea In ED pt was found to have tachycardia, leukocytosis, and hyperglycemia with a UA pos for proteins, glucose, blood, and 746 WBCs. ER course was notable for: (1) tachycardia, leukocytosis, and hyperglycemia with a UA pos for proteins, glucose, blood, and 746 WBCs (2) Zofran, Reglan, NS (3) Recent Travel: denies PAST MEDICAL HISTORY: IDDM, gastroparesis PAST SURGICAL HISTORY: denies Social History: Smokin/2 ppd x 10 yrs Alcohol: denies Drugs: marijuana Family History: denies Allergies No Known Allergies Allergy (Verified 12/07/16 17:19) HOME MEDICATIONS: Home Medications Medication Instructions Recorded Insulin Lispro [Humalog] 0 unit SQ ASDIR 07/18/13 Amitriptyline HCl [Elavil -] 3 tab PO DAILY #0 06/27/15 Acetaminophen [Tylenol] 650 mg PO Q4H PRN #20 tablet 01/17/16 Metoclopramide HCl [Reglan] 10 mg PO Q6H PRN #15 tablet 01/17/16 Ranitidine HCl [Zantac] 150 mg PO BID PRN #20 tablet 01/17/16 Insulin Glargine,Hum.rec.anlog 50 units SQ DAILY 08/09/16 [Lantus (nf)] REVIEW OF SYSTEMS CONSTITUTIONAL: chills Absent: fever, , diaphoresis, generalized weakness, malaise, loss of appetite, weight change HEENT: Absent: rhinorrhea, nasal congestion, throat pain, throat swelling, difficulty swallowing, mouth swelling, ear pain, eye pain, visual changes CARDIOVASCULAR: Absent: chest pain, syncope, palpitations, irregular heart rate, lightheadedness , peripheral edema RESPIRATORY: Absent: cough, shortness of breath, dyspnea with exertion, orthopnea, wheezing, stridor, hemoptysis GASTROINTESTINAL:abdominal pain, nausea, vomiting, diarrhea Absent: , abdominal distension, , constipation, melena, hematochezia GENITOURINARY: dysuria, frequency, Absent: urgency, hesitancy, hematuria, flank pain, genital pain MUSCULOSKELETAL: Absent: myalgia, arthralgia, joint swelling, back pain, neck pain SKIN: Absent: rash, itching, pallor HEMATOLOGIC/IMMUNOLOGIC: Absent: easy bleeding, easy bruising, lymphadenopathy, frequent infections ENDOCRINE: Absent: unexplained weight gain, unexplained weight loss, heat intolerance, cold intolerance NEUROLOGIC: Absent: headache, focal weakness or paresthesias, dizziness, unsteady gait, seizure, mental status changes, bladder or bowel incontinence PSYCHIATRIC: Absent: anxiety, depression, suicidal or homicidal ideation, hallucinations. PHYSICAL EXAMINATION Vital Signs - 24 hr 12/07/16 17:19 Temperature 98 F Pulse Rate 113 H Respiratory 20 Rate Blood Pressure 139/94 O2 Sat by Pulse 95 Oximetry (%) GENERAL: Awake, alert, and fully oriented, uncomfortable. HEAD: Normal with no signs of trauma. EYES: Pupils equal, round and reactive to light, extraocular movements intact, sclera anicteric, conjunctiva clear. No lid lag. EARS, NOSE, THROAT: oropharynx clear without exudates. Moist mucous membranes. NECK: Normal range of motion, supple without lymphadenopathy, JVD, or masses. no bruits LUNGS: Breath sounds equal, clear to auscultation bilaterally. No wheezes, and no crackles. No accessory muscle use. HEART: tachycardic, Regular rhythm, normal S1 and S2 without murmur, rub or gallop. ABDOMEN: Soft, epigastric tenderness, not distended, normoactive bowel sounds, no guarding, no rebound, no masses. No hepatomegaly or splenomegaly. MUSCULOSKELETAL: Normal range of motion at all joints. No bony deformities or tenderness. No CVA tenderness. UPPER EXTREMITIES: 2+ pulses, warm, well-perfused. No cyanosis. No clubbing. No peripheral edema. LOWER EXTREMITIES: 2+ pulses, warm, well-perfused. No calf tenderness. No peripheral edema. NEUROLOGICAL: Cranial nerves II-XII intact. Normal speech. Normal gait. PSYCHIATRIC: Cooperative. Good eye contact. Appropriate mood and affect. SKIN: Warm, dry, normal turgor, no rashes or lesions noted, normal capillary refill. Laboratory Results - last 24 hr 12/07/16 12/07/16 12/07/16 17:17 17:20 17:20 WBC 17.8 H RBC 4.41 Hgb 13.7 Hct 40.3 MCV 91.2 MCH 31.1 MCHC 34.1 RDW 14.8 Plt Count 388 MPV 7.9 Neutrophils % 87.8 H Lymphocytes % 9.2 D Monocytes % 2.5 L Eosinophils % 0.1 D Basophils % 0.4 Sodium 136 Potassium 4.3 Chloride 100 Carbon Dioxide 29 D Anion Gap 7 L BUN 14 D Creatinine 0.8 D Creat Clearance w eGFR > 60 POC Glucometer [phone] Random Glucose 295 H D Calcium 9.6 Total Bilirubin 0.4 D AST 8 L ALT 15 Alkaline Phosphatase 127 H Total Protein 7.3 Albumin 3.4 Lipase 44 L Serum , Qual Urine Color Urine Appearance Urine pH Ur Specific [place] Urine Protein Urine Glucose (UA) Urine Ketones Urine Blood Urine Nitrite Urine Bilirubin Urine Urobilinogen Urine RBC Urine WBC Ur Epithelial Cells Urine Bacteria Urine Mucus 12/07/16 12/07/16 12/08/16 17:33 17:33 00:50 WBC 19.1 H RBC 4.44 Hgb 13.5 Hct 40.4 MCV 91.1 MCH 30.5 MCHC 33.5 RDW 14.7 Plt Count 428 MPV 8.1 Neutrophils % 82.8 Lymphocytes % 12.3 D Monocytes % 4.5 Eosinophils % 0.1 Basophils % 0.3 Sodium Potassium Chloride Carbon Dioxide Anion Gap BUN Creatinine Creat Clearance w eGFR POC Glucometer Random Glucose Calcium Total Bilirubin AST ALT Alkaline Phosphatase Total Protein Albumin Lipase Serum , Qual Negative Urine Color Yellow Urine Appearance Cloudy Urine pH 6.0 Ur Specific [place] 1.015 Urine Protein 2+ H Urine Glucose (UA) 3+ H Urine Ketones 1+ H Urine Blood 1+ H Urine Nitrite Negative Urine Bilirubin Negative Urine Urobilinogen Negative Urine RBC 8 Urine WBC 746 Ur Epithelial Cells Moderate Urine Bacteria Rare Urine Mucus Rare 12/08/16 01:51 WBC 16.9 H RBC 4.13 Hgb 12.7 Hct 37.9 MCV 91.8 MCH 30.8 MCHC 33.6 RDW 14.7 Plt Count 371 MPV 8.1 Neutrophils % 83.5 H Lymphocytes % 11.7 Monocytes % 4.3 Eosinophils % 0.1 Basophils % 0.4 Sodium Potassium Chloride Carbon Dioxide Anion Gap BUN Creatinine Creat Clearance w eGFR POC Glucometer Random Glucose Calcium Total Bilirubin AST ALT Alkaline Phosphatase Total Protein Albumin Lipase Serum , Qual Urine Color Urine Appearance Urine pH Ur Specific [place] Urine Protein Urine Glucose (UA) Urine Ketones Urine Blood Urine Nitrite Urine Bilirubin Urine Urobilinogen Urine RBC Urine WBC Ur Epithelial Cells Urine Bacteria Urine Mucus ASSESSMENT/PLAN: Pt is a 26 y/o F with PMH IDDM, noncompliance with DKA, gastroparesis who presents to ED with nausea and vomiting since this afternoon. Pt is being admited for Sepsis 2/2 UTI. #Sepsis 2/2 UTI -chronic Leukocytosis -urgency, burning -UA pos for WBC -UCx, BCx -LA -Rocephin -IVF #IDDM -BGM ACHS -ISS -Lantus HS #Gastroparesis -Reglan #PPx -Hep TID #FEN -NS @ 100 -lytes wnl -DM diet Meds reviewed with Pt. Reglan 10 BID Amitriptyline 75 daily Humalog SS Basaglar 60 HS Zheng Parks MD PGY-1 case discussed with senior Visit type - Emergency Visit Emergency Visit: No - New Patient This patient is new to me today: Yes Date on this admission: 12/10/16 - Critical Care Critical Care patient: No
[2016-12-08 04:49] VITALS: BMI 30.9
[2016-12-08] MEDS ORDERED: DEXTROSE 5%-WATER - 50 ML IVPB ONE (05:04)
[2016-12-08] MEDS ORDERED: cefTRIAXone SODIUM 1 GM VIAL ONE (05:04)
[2016-12-08] MEDS: HEPARIN NA (PORCINE) 5,000 UNITS/ML 1ML VIAL SQ SCH ×3 (05:08→22:09)
[2016-12-08] MEDS ORDERED: INSULIN (NOVOLOG) ASPART 100 UNITS/ML 10ML VIAL ONE ×3 (05:28→21:56)
[2016-12-08] MEDS ORDERED: SODIUM CHLORIDE 1,000 ML IV STA ×2 (05:59→06:09)
[2016-12-08] MEDS ORDERED: SODIUM CHLORIDE 1,000 ML IV SCH ×2 (06:15→14:14)
[2016-12-08] MEDS: INSULIN SLIDING SCALE (NOVOLOG) 1 VIAL SQ SCH ×3 (06:18→16:43)
[2016-12-08] MEDS: METOCLOPRAMIDE HCL INJECTION 10 MG/2 ML VIAL IVPB SCH ×3 (08:26→20:40)
[2016-12-08] MEDS: AMITRIPTYLINE HCL 75 MG TABLET PO SCH (10:25)
[2016-12-08] MEDS ORDERED: ACETAMINOPHEN 325 MG TABLET (FP) PO PRN (13:41)
--- NOTE | 2016-12-08 14:00 | PN ---
Physical Exam: SUBJECTIVE: Patient seen and examined at bedside. Patient feels better today, but still not at baseline. OBJECTIVE: Vital Signs Period Temp Pulse Resp BP Sys/Plata Pulse Ox Last 24 Hr 98.3 F-98.8 F 102-117 18-19 116-149/84-93 97-99 GENERAL: The patient is awake, alert, and fully oriented, in no acute distress. HEAD: Normal with no signs of trauma. EYES: extraocular movements intact, sclera anicteric, conjunctiva clear. No ptosis. NECK: Trachea midline, full range of motion, supple. LUNGS: Breath sounds equal, clear to auscultation bilaterally, no wheezes, no crackles, no accessory muscle use. HEART: Regular rate and rhythm, S1, S2 without murmur, rub or gallop. ABDOMEN: Soft, nontender, nondistended, normoactive bowel sounds, no guarding, no rebound, no hepatosplenomegaly, no masses. EXTREMITIES: 2+ pulses, warm, well-perfused, no edema. NEUROLOGICAL: Cranial nerves II through X grossly intact. Normal speech, gait not observed. PSYCH: Normal mood, normal affect. SKIN: Warm, dry, normal turgor, no rashes or lesions noted Laboratory Results - last 24 hr 12/08/16 12/08/16 12/08/16 04:30 05:14 07:00 POC Glucometer 225 Lactic Acid 7.3 H* 0.7 12/08/16 11:25 POC Glucometer 183 Lactic Acid Active Medications Generic Name Dose Route Start Last Admin Trade Name Freq PRN Reason Stop Dose Admin Acetaminophen 650 mg 12/08/16 13:41 Tylenol - PO Q6H PRN FEVER OR PAIN Amitriptyline HCl 75 mg 12/08/16 09:00 12/08/16 10:25 Elavil - PO 75 mg DAILY KARLENE Administration Heparin Sodium (Porcine) 5,000 unit 12/08/16 06:00 12/08/16 05:08 Heparin - SQ 5,000 unit TID KARLENE Administration Sodium Chloride 1,000 mls @ 150 mls/hr 12/08/16 06:15 12/08/16 09:45 Normal Saline - IV 150 mls/hr ASDIR KARLENE Administration Ceftriaxone Sodium 1 gm/ 50 mls @ 100 mls/hr 12/09/16 10:00 Dextrose IVPB DAILY KARLENE Insulin Aspart 1 vial 12/08/16 07:00 12/08/16 12:08 Novolog Vial Sliding Scale - SQ 2 units TIDAC [facility] Administration Protocol Insulin Detemir 60 units 12/08/16 22:00 Levemir Vial SQ HS [facility] Metoclopramide HCl 10 mg 12/08/16 08:00 12/08/16 08:26 Reglan Injection - IVPB 10 mg Q6H [facility] Administration ASSESSMENT/PLAN: Pt is a 26 y/o F with PMH IDDM, noncompliance with DKA, gastroparesis who presents to ED with nausea and vomiting since this afternoon. Pt is being admited for Sepsis 2/2 UTI. #Sepsis 2/2 UTI -UCx, BCx pending -UA indicative of UTI -Rocephin 1g -IVF #IDDM -BGM ACHS -ISS -Lantus HS #lactic acidosis- resolved -lactic acid 7.3 on admission; RPT value .7 #Gastroparesis -Reglan -tylenol PRN abdominal pain #FEN -NS @ 175 -lytes wnl -Diabetic diet #PPx -Hep 5ku TID #Dispo -Admit to med surg Visit type - Emergency Visit Emergency Visit: Yes ED Registration Date: 12/08/16 Care time: The patient presented to the Emergency Department on the above date and was hospitalized for further evaluation of their emergent condition. - New Patient This patient is new to me today: Yes Date on this admission: 12/08/16 - Critical Care Critical Care patient: No
--- NOTE | 2016-12-08 14:11 | PN ---
Teaching Attending Note Name of Resident: David Tavares ATTENDING PHYSICIAN STATEMENT I saw and evaluated the patient. I reviewed the resident's note and discussed the case with the resident. I agree with the resident's findings and plan as documented. SUBJECTIVE: Patient complains of nausea. OBJECTIVE: Vital Signs Period Temp Pulse Resp BP Sys/Plata Pulse Ox Last 24 Hr 98 F-98.8 F 102-117 18-20 116-149/84-94 95-99 HEART: S1S2, tachycardic LUNGS: Clear ABDOMEN: Obese, soft, non-distended, (+) epigastric tenderness EXTREMITIES: No edema Current Medications Generic Name Dose Route Start Last Admin Trade Name Freq PRN Reason Stop Dose Admin Acetaminophen 650 mg 12/08/16 13:41 Tylenol - PO Q6H PRN FEVER OR PAIN Amitriptyline HCl 75 mg 12/08/16 09:00 12/08/16 10:25 Elavil - PO 75 mg DAILY KARLENE Administration Heparin Sodium (Porcine) 5,000 unit 12/08/16 06:00 12/08/16 05:08 Heparin - SQ 5,000 unit TID KARLENE Administration Sodium Chloride 1,000 mls @ 150 mls/hr 12/08/16 06:15 12/08/16 09:45 Normal Saline - IV 150 mls/hr ASDIR KARLENE Administration Ceftriaxone Sodium 1 gm/ 50 mls @ 100 mls/hr 12/09/16 10:00 Dextrose IVPB DAILY KARLENE Insulin Aspart 1 vial 12/08/16 07:00 12/08/16 12:08 Novolog Vial Sliding Scale - SQ 2 units TIDAC KARLENE Administration Protocol Insulin Detemir 60 units 12/08/16 22:00 Levemir Vial SQ HS KARLENE Metoclopramide HCl 10 mg 12/08/16 08:00 12/08/16 08:26 Reglan Injection - IVPB 10 mg Q6H KARLENE Administration ASSESSMENT AND PLAN: This is a 26 year old woman with a history of type 1 DM, gastroparesis who presented to the ER with nausea and vomiting. 1. Severe sepsis secondary to UTI - Afebrile, tachycardia persists - WBC improving, lactic acid improved - Continue Rocephin, IV fluid - Follow-up urine culture 2. Type 1 DM - Continue Levemir, Novolog sliding scale 3. Diabetic gastroparesis - Continue Reglan
[2016-12-08] MEDS: SODIUM CHLORIDE 1,000 ML IV SCH (14:39)
[2016-12-08] MEDS ORDERED: INSULIN DETEMIR 100 UNITS/ML MDV SQ SCH (22:00)
[2016-12-09] MEDS: SODIUM CHLORIDE 1,000 ML IV SCH (01:00)
[2016-12-09] MEDS: METOCLOPRAMIDE HCL INJECTION 10 MG/2 ML VIAL IVPB SCH ×2 (02:32→08:35)
[2016-12-09] MEDS: HEPARIN NA (PORCINE) 5,000 UNITS/ML 1ML VIAL SQ SCH (05:57)
[2016-12-09] MEDS: INSULIN SLIDING SCALE (NOVOLOG) 1 VIAL SQ SCH (06:07)
--- NOTE | 2016-12-09 06:38 | PN ---
Physical Exam: SUBJECTIVE: Patient seen and examined OBJECTIVE: Vital Signs Period Temp Pulse Resp BP Sys/Plata Pulse Ox Last 24 Hr 98.3 F-98.6 F 98-117 18-19 129-149/85-93 98-99 GENERAL: The patient is awake, alert, and fully oriented, in no acute distress. HEAD: Normal with no signs of trauma. EYES: PERRL, extraocular movements intact, sclera anicteric, conjunctiva clear. No ptosis. ENT: Ears normal, nares patent, oropharynx clear without exudates, moist mucous membranes. NECK: Trachea midline, full range of motion, supple. LUNGS: Breath sounds equal, clear to auscultation bilaterally, no wheezes, no crackles, no accessory muscle use. HEART: Regular rate and rhythm, S1, S2 without murmur, rub or gallop. ABDOMEN: Soft, nontender, nondistended, normoactive bowel sounds, no guarding, no rebound, no hepatosplenomegaly, no masses. EXTREMITIES: 2+ pulses, warm, well-perfused, no edema. NEUROLOGICAL: Cranial nerves II through XII grossly intact. Normal speech, gait not observed. PSYCH: Normal mood, normal affect. SKIN: Warm, dry, normal turgor, no rashes or lesions noted Laboratory Results - last 24 hr 12/08/16 12/08/16 12/08/16 07:00 11:25 16:04 POC Glucometer 183 165 Lactic Acid 0.7 12/08/16 12/09/16 22:06 05:56 POC Glucometer 221 59 Lactic Acid Active Medications Generic Name Dose Route Start Last Admin Trade Name Freq PRN Reason Stop Dose Admin Acetaminophen 650 mg 12/08/16 13:41 12/08/16 14:29 Tylenol - PO 650 mg Q6H PRN Administration FEVER OR PAIN Amitriptyline HCl 75 mg 12/08/16 09:00 12/08/16 10:25 Elavil - PO 75 mg DAILY KARLENE Administration Heparin Sodium (Porcine) 5,000 unit 12/08/16 06:00 12/09/16 05:57 Heparin - SQ 5,000 unit TID KARLENE Administration Ceftriaxone Sodium 1 gm/ 50 mls @ 100 mls/hr 12/09/16 10:00 Dextrose IVPB DAILY KARLENE Sodium Chloride 1,000 mls @ 100 mls/hr 12/08/16 14:45 10/04/17 01:00 Normal Saline - IV 100 mls/hr ASDIR KARLENE Administration Insulin Aspart 1 vial 12/08/16 07:00 12/09/16 06:07 Novolog Vial Sliding Scale - SQ Not Given TIDAC [facility] Protocol Insulin Detemir 60 units 12/08/16 22:00 12/08/16 22:08 Levemir Vial SQ 60 units HS KARLENE Administration Metoclopramide HCl 10 mg 12/08/16 08:00 12/09/16 02:32 Reglan Injection - IVPB 10 mg Q6H KARLENE Administration ASSESSMENT/PLAN: Pt is a 26 y/o F with PMH IDDM, noncompliance with DKA, gastroparesis who presents to ED with nausea and vomiting since this afternoon. Pt is being admited for Sepsis 2/2 UTI. #Sepsis 2/2 UTI -UCx, BCx pending -UA indicative of UTI -Rocephin 1g -IVF #IDDM -BGM ACHS -ISS -Lantus HS #lactic acidosis- resolved -lactic acid 7.3 on admission; RPT value .7 #Gastroparesis -Reglan -tylenol PRN abdominal pain #FEN -NS @ 175 -lytes wnl -Diabetic diet #PPx -Hep 5ku TID #Dispo -Admit to med surg
[2016-12-09 07:03] LABS: BASOPHIL 0.6 % (0-2.0); EOSINOPHIL 0.5 % (0-4.5); MCH 30.4 pg (25.7-33.7); MCHC 33.3 g/dl (32.0-36.0); MEAN CELL VOLUME 91.1 fl (80-96); MEAN PLT VOLUME 7.9 fl (7.5-11.1); NEUTROPHILS 67.2 % (42.8-82.8); PLATELET COUNT 376 K/MM3 (134-434); RDW 14.3 % (11.6-15.6); WHITE BLOOD COUNT 12.2 K/mm3 (4.0-10.0)
[2016-12-09 07:09] LABS: ALK PHOS 107 U/L (45-117); ANION GAP 8 (8-16); BILIRUBIN,TOTAL 0.4 mg/dL (0.2-1.0); CALCIUM 8.1 mg/dL (8.5-10.1); CO2 26 mmol/L (21-32); CREATININE 0.6 mg/dL (0.55-1.02); GLUCOSE,RANDOM 92 mg/dL (74-106); MAGNESIUM 1.7 mg/dL (1.8-2.4); PHOSPHOROUS 2.4 mg/dL (2.5-4.9); SGOT/AST 8 U/L (15-37); SGPT/ALT 13 U/L (12-78); TOT PROT 6.5 g/dl (6.4-8.2)
[2016-12-09] MEDS ORDERED: cefTRIAXone SODIUM 1 GM VIAL ONE (09:30)
[2016-12-09] MEDS ORDERED: DEXTROSE 5%-WATER - 50 ML IVPB ONE (09:30)
[2016-12-09] MEDS ORDERED: PT OWN MED DRAWER 7, Y5N ONE (09:34)
[2016-12-09] MEDS: AMITRIPTYLINE HCL 75 MG TABLET PO SCH (09:35)
[2016-12-09] MEDS ORDERED: CEFTRIAXONE 1 GM in DEXTROSE 5%-WATER - 50 ML IVPB SCH (10:00)
[2016-12-09 12:56] VITALS: BP 136/93; PULSE 98; TEMP 97.9
--- NOTE | 2016-12-09 13:04 | PN ---
Teaching Attending Note Name of Resident: David Tavares ATTENDING PHYSICIAN STATEMENT I saw and evaluated the patient. I reviewed the resident's note and discussed the case with the resident. I agree with the resident's findings and plan as documented. pt wanted to sign out AMA. I did not see or evaluate this pt. resident counseled pt on risks of leaving including sepsis which can lead to multiorgan failure and if does not continue abx treatment. encouraged by resident to complete abx course. will call pt back if Ucx is not sensitive to abx.
--- NOTE | 2016-12-09 16:57 | DS ---
Physical Exam: SUBJECTIVE: Patient seen and examined. She expresses wishes to go home. OBJECTIVE: Vital Signs Period Temp Pulse Resp BP Sys/Plata Pulse Ox Last 24 Hr 97.9 F-98.6 F 96-98 18-18 122-136/82-93 98-100 PHYSICAL EXAM GENERAL: The patient is awake, alert, and fully oriented, in no acute distress. HEAD: Normal with no signs of trauma. EYES: extraocular movements intact, sclera anicteric, conjunctiva clear. NECK: Trachea midline, full range of motion, supple. LUNGS: Breath sounds equal, clear to auscultation bilaterally, no wheezes, no crackles, no accessory muscle use. HEART: Regular rate and rhythm, S1, S2 without murmur, rub or gallop. ABDOMEN: Soft, nontender, nondistended, normoactive bowel sounds, no guarding, no rebound, no hepatosplenomegaly, no masses. EXTREMITIES: 2+ pulses, warm, well-perfused, no edema. NEUROLOGICAL: Cranial nerves II through X grossly intact. Normal speech, gait not observed. PSYCH: Normal mood, normal affect. SKIN: Warm, dry, normal turgor, no rashes or lesions noted. LABS Laboratory Results - last 24 hr 12/08/16 12/09/16 12/09/16 22:06 05:56 06:15 WBC 12.2 H RBC 4.22 Hgb 12.8 Hct 38.4 MCV 91.1 MCH 30.4 MCHC 33.3 RDW 14.3 Plt Count 376 MPV 7.9 Neutrophils % 67.2 Lymphocytes % 27.1 D Monocytes % 4.6 Eosinophils % 0.5 D Basophils % 0.6 Sodium Potassium Chloride Carbon Dioxide Anion Gap BUN Creatinine Creat Clearance w eGFR POC Glucometer 221 59 Random Glucose Calcium Phosphorus Magnesium Total Bilirubin AST ALT Alkaline Phosphatase Total Protein Albumin 12/09/16 12/09/16 06:15 07:00 WBC RBC Hgb Hct MCV MCH MCHC RDW Plt Count MPV Neutrophils % Lymphocytes % Monocytes % Eosinophils % Basophils % Sodium 138 Potassium 3.6 Chloride 104 Carbon Dioxide 26 Anion Gap 8 BUN 4 L D Creatinine 0.6 D Creat Clearance w eGFR > 60 POC Glucometer 158 Random Glucose 92 D Calcium 8.1 L Phosphorus 2.4 L Magnesium 1.7 L Total Bilirubin 0.4 AST 8 L ALT 13 Alkaline Phosphatase 107 Total Protein 6.5 Albumin 3.0 L HOSPITAL COURSE: Date of Admission:12/08/16 The patient is a 26 yo F w/ PMH DM and gastroparesis who presents to the ED c/o nausea and vomiting. In the ED, she was found to meet SIRS criteria as well as have lactic acidosis. The patient had pyuria. She was admitted to the hospital for severe sepsis secondary to UTI. Urine cultures were taken. She was treated with ceftriaxone, Reglan and IV fluids. The day after her admission, the patient elected to sign out AMA. She was made aware of all the risks of doing so including but not limited to worsening infection, damage to organs as well as disability and possible . Patient verbalized understanding of these risks and still wished to leave. Keflex 500 BID for 3 days was sent to the patient's pharmacy in an effort to treat her UTI. Patient was encouraged to follow up with her PCP as soon as possible. 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 You have decided to leave the hospital against medical advice. We are sending you home Referrals: Clare Acevedo MD [Primary Care Provider] - Jason Kern MD [Staff Physician] - Disposition: AGAINST MEDICAL ADVICE - Home Medications Comprehensive Discharge Medication List: Ambulatory Orders Insulin Lispro [Humalog] 0 unit SQ ASDIR 07/18/13 Amitriptyline HCl [Elavil -] 3 tab PO DAILY #0 06/27/15 Acetaminophen [Tylenol] 650 mg PO Q4H PRN #20 tablet 01/17/16 Metoclopramide HCl [Reglan] 10 mg PO Q6H PRN #15 tablet 01/17/16 Ranitidine HCl [Zantac] 150 mg PO BID PRN #20 tablet 01/17/16 Insulin Glargine,Hum.rec.anlog [Clay Cardozapen U-100] 60 unit SQ HS 12/08/16 Cephalexin [Keflex] 500 mg PO BID #6 capsule 12/09/16 This patient is new to me today: No Emergency Visit: Yes ED Registration Date: 12/08/16 Care time: The patient presented to the Emergency Department on the above date and was hospitalized for further evaluation of their emergent condition. Critical Care patient: No - Discharge Referral [facility]erred to [facility] No
== END 2016-12-09 10:30 | disposition left against medical advice (07) | DRG 720 ==
LOC: JER 16:50 → JERBED 12-08 02:53 → J5S 12-08 04:39
PROVIDERS: ADMIT Internal Medicine; ATTEND Internal Medicine
DX: A41.9 Sepsis, unspecified organism (principal); E10.43 Type 1 diabetes mellitus with diabetic autonomic (poly)neuropathy; E10.10 Type 1 diabetes mellitus with ketoacidosis without coma; R11.2 Nausea with vomiting, unspecified; E87.2 Acidosis; F17.210 Nicotine dependence, cigarettes, uncomplicated; F12.10 Cannabis abuse, uncomplicated; R10.9 Unspecified abdominal pain; E66.8 Other obesity; Z68.30 Body mass index [BMI] 30.0-30.9, adult; D72.828 Other elevated white blood cell count; E10.65 Type 1 diabetes mellitus with hyperglycemia; K31.84 Gastroparesis; N39.0 Urinary tract infection, site not specified; B95.2 Enterococcus as the cause of diseases classified elsewhere; Z91.14 Patient's other noncompliance with medication regimen; Z79.4 Long term (current) use of insulin
CPT/HCPCS: 36415; 80053; 81003; 81015; 83605; 83690; 83735; 84100; 84703; 85025; 87086; 87186; 99285-25; J1644

== ENCOUNTER 2017-01-13 18:23 | Inpatient (IN) | payer OTHER ==
--- NOTE | 2017-01-13 18:46 | PDOC ---
Attending Attestation - Resident Resident Name: Nishi Awad - ED Attending Attestation I have performed the following: I have examined & evaluated the patient, The case was reviewed & discussed with the resident, I agree w/resident's findings & plan, Exceptions are as noted - HPI HPI: 26 yo type 1 DM, gastroparesis, DKA, pancreatitis presents with abdominal pain. She states the pain is epigastric, associated with nausea and vomiting. Pain is moderate to severe, constant. She states she has had recent high blood sugar measurements at home, has not been taking her insulin today because "I slept all day". - Physicial Exam PE: GENERAL: Awake, alert, and fully oriented, in no acute distress HEAD: No signs of trauma EYES: PERRLA, EOMI, sclera anicteric, conjunctiva clear ENT: Auricles normal inspection, hearing grossly normal, nares patent, oropharynx clear without exudates. Dry mucosa NECK: Normal ROM, supple, no lymphadenopathy, JVD, or masses LUNGS: Breath sounds equal, clear to auscultation bilaterally. No wheezes, and no crackles HEART: Regular rate and rhythm, normal S1 and S2, no murmurs, rubs or gallops ABDOMEN: Soft, diffusely tender, hypoactive bowel sounds. No guarding, no rebound. No masses EXTREMITIES: Normal range of motion, no edema. No clubbing or cyanosis. No cords, erythema, or tenderness NEUROLOGICAL: Cranial nerves II through XII grossly intact. Normal speech, normal gait SKIN: Warm, Dry, normal turgor, no rashes or lesions noted. - Medical Decision Making Pt found to have high glucose with significantly elevated anion gap (28). Will start on insulin drip and r/o any infectious causes.
--- NOTE | 2017-01-13 19:08 | PDOC ---
History of Present Illness - General Chief Complaint: Blood Sugar Problem Stated Complaint: ABDOMINAL PAIN/HIGH SUGAR Time Seen by Provider: 01/13/17 18:43 History Source: Patient Exam Limitations: No Limitations - History of Present Illness Initial Comments: This is a 26 YOF with h/o type 1 IDDM, gastroparesis, DKA, and pancreatitis in distant past who presents c/o epigastric abdominal pain, nausea, and vomiting since yesterday morning. The pain is 7/10 and radiates to her upper back on both sides. She vomited once today and has not been trying to eat solid food, but has been able to tolerate liquids normally. She denies any change in the pain when she eats or drinks. She last had a bowel movement two days ago which was brown-colored loose diarrhea. She otherwise denies any fever, chills, headache, dysuria, blood in the diarrhea or other symptoms. She has measured her blood sugar to be >400 at home over the past few days though she notes taking all her medications normally including insulin. The last time this happened was a month or two ago per her report. She was admitted about one month ago and left AMA after her symptoms were controlled, but also was diagnosed with UTI and Rx for antibiotics were sent. Past History - Past Medical History Allergies/Adverse Reactions: Allergies Allergy/AdvReac Type Severity Reaction Status Date / Time No Known Allergies Allergy Verified 01/13/17 18:59 Home Medications: Ambulatory Orders Insulin Lispro [Humalog] 0 unit SQ ASDIR 07/18/13 Amitriptyline HCl [Elavil -] 3 tab PO DAILY #0 06/27/15 Acetaminophen [Tylenol] 650 mg PO Q4H PRN #20 tablet 01/17/16 Metoclopramide HCl [Reglan] 10 mg PO Q6H PRN #15 tablet 01/17/16 Ranitidine HCl [Zantac] 150 mg PO BID PRN #20 tablet 01/17/16 Insulin Glargine,Hum.rec.anlog [Basaglar Kwikpen U-100] 60 unit SQ HS 12/08/16 Anemia: No Asthma: No Cancer: No Cardiac Disorders: No CVA: No COPD: No CHF: No Dementia: No Diabetes: Yes GI Disorders: Yes (gastroparesis) Disorders: No HTN: No Hypercholesterolemia: No Liver Disease: No Psychiatric Problems: Yes (ANXIETY DEPRESSION) Seizures: No Thyroid Disease: No - Surgical History Abdominal Surgery: No Appendectomy: No Cardiac Surgery: No Cholecystectomy: No Lung Surgery: No Neurologic Surgery: No Orthopedic Surgery: No - Family Disease History Family Disease History: Diabetes: Grandparents (great-grandmother) - Immunization History Immunization Up to Date: Yes - Suicide/Smoking/Psychosocial Hx Smoking Status: No Smoking History: Current every day smoker Have you smoked in the past 12 months: Yes Number of Cigarettes Smoked Daily: 10 Information on smoking cessation initiated: No 'Breaking Loose' booklet given: 08/09/16 Hx Alcohol Use: No Drug/Substance Use Hx: No Substance Use Type: None Hx Substance Use Treatment: No Review of Systems - Review of Systems Able to Perform ROS?: Yes Constitutional: No: Chills, Fever, Unexplained wgt Loss HEENTM: No: Nose Congestion, Throat Pain Respiratory: No: Cough, Shortness of Breath Cardiac (ROS): No: Chest Pain, Palpitations ABD/GI: Yes: Diarrhea (2d ago), Nausea, Vomiting, Other (abdominal pain). No: Constipated : No: Burning, Dysuria Musculoskeletal: Yes: Back Pain (radiating from abdomen). No: Neck Pain Integumentary: No: Bruising, Rash Neurological: No: Headache, Numbness, Tingling, Weakness, Dizziness Endocrine: No: Unexplained Weight Gain, Unexplained Weight Loss *Physical Exam - Vital Signs Last Vital Signs Temp Pulse Resp BP Pulse Ox 97.2 F L 135 H 28 H 130/95 100 01/13/17 18:33 01/13/17 18:33 01/13/17 18:33 01/13/17 18:33 01/13/17 18:33 - Physical Exam General Appearance: Yes: Nourished, Appropriately Dressed, Mild Distress, Other (laying on right side and occasionally moaning with discomfort, holding abdomen , answering questions appropriately) HEENT: positive: EOMI, Normal Voice, Hearing Grossly Normal. negative: Scleral Icterus (R), Scleral Icterus (L), Nasal Congestion Neck: positive: Trachea midline, Supple. negative: Tender, Rigid Respiratory/Chest: positive: Lungs Clear, Normal Breath Sounds. negative: Respiratory Distress, Crackles, Rhonchi, Stridor, Wheezing Cardiovascular: positive: Regular Rhythm, Regular Rate. negative: Murmur Gastrointestinal/Abdominal: positive: Normal Bowel Sounds, Tender (mild epigastric ttp, no peritoneal signs), Soft. negative: Organomegaly, Pulsatile Mass, Guarding Musculoskeletal: positive: Normal Inspection. negative: Decreased Range of Motion, Vertebral Tenderness Extremity: positive: Normal Capillary Refill, Normal Inspection, Normal Range of Motion. negative: Tender, Cyanosis Integumentary: positive: Normal Color, Dry, Warm. negative: Erythema, Rash, Bruising Neurologic: positive: furniture cleaner II-XII NML intact, Fully Oriented, Alert, Normal Mood/ Affect, Normal Response, Motor Strength 07/10 ED Treatment Course - LABORATORY CBC & Chemistry Diagram: 01/15/17 13:40 01/15/17 13:40 Medical Decision Making - Medical Decision Making This is a 26 YOF with h/o IDDM, DKA, gastroparesis, who p/w abdominal pain, nausea, and vomiting x2d. She states she has been taking her medications but still measuring BG > 400 at home. Not eating any solids today but tolerating fluids, only vomited once but very nauseated. On exam she is in mild distress, mild epigastric ttp, mildly tachycardic, otherwise wnl. DDX IBNLT DKA, gastroparesis, HHS, pancreatitis, UTI/pyelo, gastritis, cholecystitis, appendicitis, etc. Ordered is IVF, Reglan, Pepcid, CBCD, CMP, UA cx, lipase, acetone, hCG. 01/13/17 20:55 Ketones in the urine, awaiting serum acetone and hCG. CBCD notable for WBC >40k but the patient has chronic fluctuating leukocytosis and this is not new. CMP and lipase hemolyzed; will re-draw. 01/13/17 21:42 Awaiting results of CMP and lipase. Patient's care is signed out to the retail shift supervisor resident excellent Dr. Nico Ordoñez. *DC/Admit/Observation/Transfer Diagnosis at time of Disposition: Abdominal pain Qualifiers: Abdominal location: epigastric Qualified Code(s): R10.13 - Epigastric pain Nausea & vomiting Qualifiers: Vomiting type: unspecified Vomiting Intractability: unspecified Qualified Code( s): R11.2 - Nausea with vomiting, unspecified Diabetic ketoacidosis associated with type 1 diabetes mellitus Qualifiers: Diabetes mellitus complication detail: without coma Qualified Code(s): E10.10 - Type 1 diabetes mellitus with ketoacidosis without coma - Discharge Dispostion Disposition: HOME Condition at time of disposition: Improved - Referrals - Patient Instructions - Post Discharge Activity
[2017-01-13] MEDS ORDERED: SODIUM CHLORIDE 0.9% 1000 ML INFUS.BAG IV ONE (19:59)
[2017-01-13] MEDS ORDERED: FAMOTIDINE 20 MG/50 ML IVPB 20 MG/50 ML MG IVPB ONE ×2 (19:59→20:29)
[2017-01-13] MEDS ORDERED: METOCLOPRAMIDE HCL INJECTION 10 MG/2 ML VIAL IVPUSH ONE (19:59)
[2017-01-13] MEDS ORDERED: METOCLOPRAMIDE HCL INJECTION 10 MG/2 ML VIAL ONE (20:25)
[2017-01-13 20:31] LABS: URINE APPEARANCE CLOUDY; URINE BILIRUBIN NEGATIVE (NEGATIVE); URINE BLOOD 1+ (NEGATIVE); URINE COLOR LTYELLOW; URINE GLUCOSE (UA) 3+ (NEGATIVE); URINE KETONE 2+ (NEGATIVE); URINE NITRITE NEGATIVE (NEGATIVE); URINE UROBILINOGEN NEGATIVE mg/dL (0.2-1.0)
[2017-01-13 20:33] LABS: URINE PROTEIN 2+ (NEGATIVE)
[2017-01-13 21:00] LABS: MCH 31.2 pg (25.7-33.7); MCHC 33.5 g/dl (32.0-36.0); MEAN CELL VOLUME 93.1 fl (80-96); MEAN PLT VOLUME 8.1 fl (7.5-11.1); PLATELET COUNT 453 K/MM3 (134-434); RDW 13.7 % (11.6-15.6)
[2017-01-13 21:19] LABS: WHITE BLOOD COUNT 42.1 K/mm3 (4.0-10.0)
[2017-01-13 22:27] LABS: PLATELET ESTIMATE ADEQUATE (NORMAL)
[2017-01-13 22:48] LABS: URINE LEUK ESTERASE Negative (NEGATIVE)
[2017-01-13 22:51] LABS: ALBUMIN 3.6 g/dl (3.4-5.0); ALK PHOS 169 U/L (45-117); ANION GAP 28 (8-16); BILIRUBIN,TOTAL 0.7 mg/dL (0.2-1.0); CALCIUM 8.5 mg/dL (8.5-10.1); CO2 9 mmol/L (21-32); CREATININE 1.1 mg/dL (0.55-1.02); SGOT/AST 12 U/L (15-37); SGPT/ALT 14 U/L (12-78); TOT PROT 7.4 g/dl (6.4-8.2)
[2017-01-13 23:05] LABS: GLUCOSE,RANDOM 627 mg/dL (74-106)
[2017-01-13] MEDS ORDERED: SODIUM CHLORIDE 1,000 ML IV SCH (23:15)
--- NOTE | 2017-01-13 23:15 | PDOC ---
*Physical Exam - Vital Signs Last Vital Signs Temp Pulse Resp BP Pulse Ox 97.2 F L 135 H 28 H 130/95 100 01/13/17 18:33 01/13/17 18:33 01/13/17 18:33 01/13/17 18:33 01/13/17 19:00 - Physical Exam Comments: 01/13/17 23:53 General Appearance: Nourished. No Apparent Distress HEENT: EOMI, KEYSHA. No Pharyngeal Erythema, Tonsillar Exudate, Tonsillar Erythema Neck: No Cervical Lymphadenopathy Respiratory/Chest: Lungs Clear, Normal Breath Sounds. No Crackles, Rales, Rhonchi, Wheezing Cardiovascular: Regular Rhythm, Regular Rate. No Murmur, Gallops, Rubs Gastrointestinal/Abdominal: Normal Bowel Sounds, Soft. Mild epigastric tenderness to palpation. No Guarding, Rebound, Musculoskeletal: No CVA Tenderness Extremity: Normal Capillary Refill Integumentary: Normal Color, Dry, Warm Neurologic: Fully Oriented, Alert, Normal Mood/Affect, Normal Response, ED Treatment Course - LABORATORY CBC & Chemistry Diagram: 01/13/17 20:40 01/13/17 21:50 - ADDITIONAL ORDERS Additional order review: Laboratory Results 01/13/17 01/13/17 01/13/17 21:50 20:40 20:40 Sodium 123 L* D Cancelled Potassium 5.6 H D Cancelled Chloride 86 L D Cancelled Carbon Dioxide 9 L D Cancelled Anion Gap 28 H Cancelled BUN 29 H D Cancelled Creatinine 1.1 H D Cancelled Creat Clearance w eGFR > 60 Cancelled Random Glucose 627 H* D Cancelled Calcium 8.5 Cancelled Total Bilirubin 0.7 D Cancelled AST 12 L D Cancelled ALT 14 Cancelled Alkaline Phosphatase 169 H D Cancelled Total Protein 7.4 Cancelled Albumin 3.6 Cancelled Lipase Cancelled Serum , Qual Negative Urine Color Urine Appearance Urine pH Ur Specific [place] Urine Protein Urine Glucose (UA) Urine Ketones Urine Blood Urine Nitrite Urine Bilirubin Urine Urobilinogen Ur Leukocyte Esterase Urine RBC Urine WBC Ur Epithelial Cells 01/13/17 20:20 Sodium Potassium Chloride Carbon Dioxide Anion Gap BUN Creatinine Creat Clearance w eGFR Random Glucose Calcium Total Bilirubin AST ALT Alkaline Phosphatase Total Protein Albumin Lipase Serum , Qual Urine Color Ltyellow Urine Appearance Cloudy Urine pH 5.0 Ur Specific [place] 1.027 Urine Protein 2+ H Urine Glucose (UA) 3+ H Urine Ketones 2+ H Urine Blood 1+ H Urine Nitrite Negative Urine Bilirubin Negative Urine Urobilinogen Negative Ur Leukocyte Esterase Negative Urine RBC 2-5 Urine WBC 5-10 Ur Epithelial Cells Moderate 01/13/17 20:40 RBC 4.39 MCV 93.1 MCHC 33.5 RDW 13.7 MPV 8.1 Neutrophils % 91.0 H D Lymphocytes % 5.0 L D Monocytes % 4.0 - RADIOLOGY Radiology Studies Ordered: Category Date Time Status CHEST X-RAY PORTABLE* [RAD] Stat Radiology 01/13/17 23:14 Ordered - Medications Given in the ED: ED Medications Discontinued Medications Generic Name Dose Route Start Last Admin Trade Name Freq PRN Reason Stop Dose Admin Famotidine/Sodium Chloride 20 mg in 50 mls @ 100 mls/hr 01/13/17 19:59 20:45 Pepcid 20 Mg Premixed Ivpb - IVPB 01/13/17 20:28 100 mls/hr ONCE ONE Administration Metoclopramide HCl 10 mg 01/13/17 19:59 01/13/17 20:45 Reglan Injection - IVPUSH 01/13/17 20:00 10 mg ONCE ONE Administration Sodium Chloride 1,000 ml 01/13/17 19:59 01/13/17 20:45 Normal Saline - IV 01/13/17 20:00 1,000 ml ONCE ONE Administration Progress Note - Progress Note Progress Note: This is a 26 YOF with h/o type 1 IDDM, gastroparesis, DKA, and pancreatitis in distant past who presents c/o epigastric abdominal pain, nausea, and vomiting since yesterday morning. Patient has had several episodes of non-bilious, non- bloody vomiting consistent with her prior gastroparesis. She reports several days of glucose measurements to 400+. She has a leukocytosis of 42 here in the ED which has been elevated in the past. Ketones noted in the urine. The patient is pending cmp. Likely admission pending cmp for DKA determination. Medical Decision Making - Medical Decision Making 01/13/17 23:54 CMP is remarkable for a sodium of 123, potassium of 5.6, anion gap of 28, glucose of 600+. Given the patient's physical exam and lab results it is likely the patient is in DKA. We will continue iv fluids here in the ED and start an insulin drip. We will also start vanc and zosyn give her leukocytosis and send blood cultures in the meantime. We discussed the case with the ICU RACE STARTER who has been made aware. 01/14/17 00:37 We discussed with the hospitalist team who accepted the patient for admission. *DC/Admit/Observation/Transfer Diagnosis at time of Disposition: Abdominal pain Qualifiers: Abdominal location: epigastric Qualified Code(s): R10.13 - Epigastric pain Nausea & vomiting Qualifiers: Vomiting type: unspecified Vomiting Intractability: unspecified Qualified Code( s): R11.2 - Nausea with vomiting, unspecified Diabetic ketoacidosis associated with type 1 diabetes mellitus Qualifiers: Diabetes mellitus complication detail: without coma Qualified Code(s): E10.10 - Type 1 diabetes mellitus with ketoacidosis without coma - Discharge Dispostion Condition at time of disposition: Guarded Admit: Yes - Referrals Referrals: Clare Acevedo MD [Primary Care Provider] - - Patient Instructions - Post Discharge Activity
[2017-01-13] MEDS ORDERED: VANCOMYCIN 1,250 MG in DEXTROSE 5%-WATER - 250 ML IVPB ONE (23:27)
[2017-01-13] MEDS ORDERED: PIPERACILLIN/TAZOB 3.375 GM 50 ML IVPB ONE (23:27)
[2017-01-14] MEDS ORDERED: PIPERACILLIN/TAZOB 3.375 GM 3.375 GM/50 ML BAG IVPB ONE (00:25)
--- NOTE | 2017-01-14 00:45 | HP ---
CHIEF COMPLAINT: "My sugar is high" PCP: Dr Acevedo HISTORY OF PRESENT ILLNESS: This is a 26 yo F with PMH of type 1 IDDM, gastroparesis, frequent DKA due to noncompliance, and past pancreatitis, who presents due to hyperglycemia/DKA. Patient states that she had URI with vomiting 1 w ago, at [facility] time her glucose as 400 for a few days. the past 3 days are a blurr, she did not eat and is unsure of he glucose readings or whether she has been giving herself insulin. She currently complains of dull epigastric abdominal pain, nausea, nbnb vomiting x1 since yesterday morning. Last normal BM was 2 days ago. Patient is still lethargic and in moderate distress but feels slightly better that on initial presentation. She describes her symptoms as overall similar to previous dka episodes. Last DKA was a month at which time she left AMA after her symptoms were controlled. She denies h/a, f/c, dysuria, CP, sob, cough, diarrhea. ER course was notable for: (1)labs (2)ekg, cxr (3)ivf, insulin drip Recent Travel: denies PAST MEDICAL HISTORY: as above PAST SURGICAL HISTORY: denies Social History: lives with grandmother and Smoking: denies Alcohol:denies Drugs: denies Family History: unremarkable Allergies No Known Allergies Allergy (Verified 01/13/17 18:59) HOME MEDICATIONS: Home Medications Medication Instructions Recorded Insulin Lispro [Humalog] 0 unit SQ ASDIR 07/18/13 Amitriptyline HCl [Elavil -] 3 tab PO DAILY #0 06/27/15 Acetaminophen [Tylenol] 650 mg PO Q4H PRN #20 tablet 01/17/16 Metoclopramide HCl [Reglan] 10 mg PO Q6H PRN #15 tablet 01/17/16 Ranitidine HCl [Zantac] 150 mg PO BID PRN #20 tablet 01/17/16 Insulin Glargine,Hum.rec.anlog 60 unit SQ HS 12/08/16 [Basaglar Kwikpen U-100] REVIEW OF SYSTEMS CONSTITUTIONAL: Absent: fever, chills HEENT: Absent: rhinorrhea, nasal congestion, throat pain CARDIOVASCULAR: Absent: chest pain, syncope, palpitations, irregular heart rate, peripheral edema RESPIRATORY: Absent: cough, shortness of breath, hemoptysis GASTROINTESTINAL: Absent: diarrhea, constipation, melena, hematochezia GENITOURINARY: Absent: dysuria MUSCULOSKELETAL: Absent: arthralgia SKIN: Absent: rash, itching, pallor HEMATOLOGIC/IMMUNOLOGIC: Absent: frequent infections ENDOCRINE: Absent: unexplained weight gain, unexplained weight loss NEUROLOGIC: Absent: headache, focal weakness or paresthesias PSYCHIATRIC: Absent: anxiety, depression PHYSICAL EXAMINATION Vital Signs - 24 hr 01/13/17 01/13/17 18:33 19:00 Temperature 97.2 F L Pulse Rate 135 H Respiratory 28 H Rate Blood Pressure 130/95 O2 Sat by Pulse 100 100 Oximetry (%) GENERAL: Awake, alert, and fully oriented, slightly lethargicin moderate distress. HEAD: Normal with no signs of trauma. EYES: Pupils equal, round and reactive to light, extraocular movements intact, sclera anicteric, conjunctiva clear. No lid lag. EARS, NOSE, THROAT: Moist mucous membranes. NECK: supple LUNGS: Breath sounds equal, clear to auscultation bilaterally. HEART: tachy rate and reg rhythm, normal S1 and S2 ABDOMEN: Soft, diffusely tender, not distended, globally reduced bowel sounds, no guarding MUSCULOSKELETAL: No CVA tenderness. UPPER EXTREMITIES: 2+ pulses, warm, well-perfused. No peripheral edema. LOWER EXTREMITIES: 2+ pulses, warm, well-perfused. No calf tenderness. No peripheral edema. NEUROLOGICAL: Cranial nerves II-XII grossly intact. Normal speech. PSYCHIATRIC: Cooperative. Good eye contact. Appropriate mood and affect. SKIN: Warm, dry, Laboratory Results - last 24 hr 01/13/17 01/13/17 01/13/17 20:20 20:40 20:40 WBC 42.1 H* D RBC 4.39 Hgb 13.7 Hct 40.9 MCV 93.1 MCH 31.2 MCHC 33.5 RDW 13.7 Plt Count 453 H D MPV 8.1 Total Counted Neutrophils % 91.0 H D Neutrophils % (Manual) Band Neutrophils % Lymphocytes % 5.0 L D Lymphocytes % (Manual) Monocytes % 4.0 Monocytes % (Manual) Eosinophils % (Manual) Basophils % (Manual) Myelocytes % (Man) Promyelocytes % (Man) Blast Cells % (Manual) Nucleated RBC % Metamyelocytes Hypersegmented Neuts Plasma Cells Smudge Cells Other Cell Type Hypochromia Toxic Granulation Dohle Bodies George Rods Platelet Estimate Adequate Platelet Comment RBC Morphology Appears normal Polychromasia Poikilocytosis Basophilic Stippling Anisocytosis Microcytosis Macrocytosis Spherocytes Siderocytes Sickle Cells Target Cells Tear Drop Cells Ovalocytes Stomatocytes Helmet Cells Trejo-Andres Bodies [place] Rings [place] Cells Acanthocytes (Spur) Rouleaux Fragmented RBCs Schistocytes Sodium Cancelled Potassium Cancelled Chloride Cancelled Carbon Dioxide Cancelled Anion Gap Cancelled BUN Cancelled Creatinine Cancelled Creat Clearance w eGFR Cancelled Random Glucose Cancelled Calcium Cancelled Total Bilirubin Cancelled AST Cancelled ALT Cancelled Alkaline Phosphatase Cancelled Total Protein Cancelled Albumin Cancelled Lipase Cancelled Serum , Qual Urine Color Ltyellow Urine Appearance Cloudy Urine pH 5.0 Ur Specific [place] 1.027 Urine Protein 2+ H Urine Glucose (UA) 3+ H Urine Ketones 2+ H Urine Blood 1+ H Urine Nitrite Negative Urine Bilirubin Negative Urine Urobilinogen Negative Ur Leukocyte Esterase Negative Urine RBC 2-5 Urine WBC 5-10 Ur Epithelial Cells Moderate Acetone, Qual 01/13/17 01/13/17 01/13/17 20:40 20:40 20:40 WBC RBC Hgb Hct MCV MCH MCHC RDW Plt Count MPV Total Counted Cancelled Neutrophils % Neutrophils % (Manual) Cancelled Band Neutrophils % Cancelled Lymphocytes % Lymphocytes % (Manual) Cancelled Monocytes % Monocytes % (Manual) Cancelled Eosinophils % (Manual) Cancelled Basophils % (Manual) Cancelled Myelocytes % (Man) Cancelled Promyelocytes % (Man) Cancelled Blast Cells % (Manual) Cancelled Nucleated RBC % Cancelled Metamyelocytes Cancelled Hypersegmented Neuts Cancelled Plasma Cells Cancelled Smudge Cells Cancelled Other Cell Type Cancelled Hypochromia Cancelled Toxic Granulation Cancelled Dohle Bodies Cancelled George Rods Cancelled Platelet Estimate Cancelled Platelet Comment Cancelled RBC Morphology Polychromasia Cancelled Poikilocytosis Cancelled Basophilic Stippling Cancelled Anisocytosis Cancelled Microcytosis Cancelled Macrocytosis Cancelled Spherocytes Cancelled Siderocytes Cancelled Sickle Cells Cancelled Target Cells Cancelled Tear Drop Cells Cancelled Ovalocytes Cancelled Stomatocytes Cancelled Helmet Cells Cancelled Trejo-[place] Bodies Cancelled [place] Rings Cancelled Elly Cells Cancelled Acanthocytes (Spur) Cancelled Rouleaux Cancelled Fragmented RBCs Cancelled Schistocytes Cancelled Sodium Potassium Chloride Carbon Dioxide Anion Gap BUN Creatinine Creat Clearance w eGFR Random Glucose Calcium Total Bilirubin AST ALT Alkaline Phosphatase Total Protein Albumin Lipase Serum , Qual Negative Urine Color Urine Appearance Urine pH Ur Specific [place] Urine Protein Urine Glucose (UA) Urine Ketones Urine Blood Urine Nitrite Urine Bilirubin Urine Urobilinogen Ur Leukocyte Esterase Urine RBC Urine WBC Ur Epithelial Cells Acetone, Qual Positive large 3+ H 01/13/17 01/13/17 21:50 Unknown WBC RBC Hgb Hct MCV MCH MCHC RDW Plt Count MPV Total Counted Neutrophils % Neutrophils % (Manual) Band Neutrophils % Lymphocytes % Lymphocytes % (Manual) Monocytes % Monocytes % (Manual) Eosinophils % (Manual) Basophils % (Manual) Myelocytes % (Man) Promyelocytes % (Man) Blast Cells % (Manual) Nucleated RBC % Metamyelocytes Hypersegmented Neuts Plasma Cells Smudge Cells Other Cell Type Hypochromia Toxic Granulation Dohle Bodies George Rods Platelet Estimate Platelet Comment RBC Morphology Polychromasia Poikilocytosis Basophilic Stippling Anisocytosis Microcytosis Macrocytosis Spherocytes Siderocytes Sickle Cells Target Cells Tear Drop Cells Ovalocytes Stomatocytes Helmet Cells Trejo-[place]res Bodies [place] Rings [place] Cells Acanthocytes (Spur) Rouleaux Fragmented RBCs Schistocytes Sodium 123 L* D Potassium 5.6 H D Chloride 86 L D Carbon Dioxide 9 L D Anion Gap 28 H BUN 29 H D Creatinine 1.1 H D Creat Clearance w eGFR > 60 Random Glucose 627 H* D Calcium 8.5 Total Bilirubin 0.7 D AST 12 L D ALT 14 Alkaline Phosphatase 169 H D Total Protein 7.4 Albumin 3.6 Lipase 42 L Serum , Qual Urine Color Urine Appearance Urine pH Ur Specific [place] Urine Protein Urine Glucose (UA) Urine Ketones Urine Blood Urine Nitrite Urine Bilirubin Urine Urobilinogen Ur Leukocyte Esterase Urine RBC Urine WBC Ur Epithelial Cells Acetone, Qual ASSESSMENT/PLAN: This is a 26 yo F with PMH of type 1 IDDM, gastroparesis, frequent DKA due to noncompliance, and past pancreatitis, who presents due to hyperglycemia/DKA. DKA in setting of uncontrolled Type 1 IDDM -glucose >600, gap 28, +ketones, K 5.6 -insulin gtt started in ED @0.1/kg w/o bolus -IV hydration NS @ 1L/hr -BGM q 1 h -BMP q 4h -replete K when below 5.3 -add dextrose when gluc 200, gap closes -NPO -zofran prn -IV tylenol pain prn -ICU monitoring OLEG -bun/creat pre renal 05/04.1 -espect improvement with IV hydration Dispo: ICU Problem List - Problem (1) Abdominal pain Code(s): R10.9 - UNSPECIFIED ABDOMINAL PAIN Qualifiers: Abdominal location: epigastric Qualified Code(s): R10.13 - Epigastric pain (2) Diabetic ketoacidosis associated with type 1 diabetes mellitus Code(s): E10.10 - TYPE 1 DIABETES MELLITUS WITH KETOACIDOSIS WITHOUT COMA Qualifiers: Diabetes mellitus complication detail: without coma Qualified Code(s): E10.10 - Type 1 diabetes mellitus with ketoacidosis without coma (3) Nausea & vomiting Code(s): R11.2 - NAUSEA WITH VOMITING, UNSPECIFIED Qualifiers: Vomiting type: unspecified Vomiting Intractability: unspecified Qualified Code(s): R11.2 - Nausea with vomiting, unspecified (4) DKA (diabetic ketoacidosis) Code(s): E13.10 - OTH DIABETES MELLITUS WITH KETOACIDOSIS WITHOUT COMA Qualifiers: Diabetes mellitus type: type 1 Diabetes mellitus complication detail: without coma Qualified Code(s): E10.10 - Type 1 diabetes mellitus with ketoacidosis without coma (5) Dehydration Code(s): E86.0 - DEHYDRATION (6) Gastroparesis Code(s): K31.84 - GASTROPARESIS Visit type - Emergency Visit Emergency Visit: Yes ED Registration Date: 01/14/17 Care time: The patient presented to the Emergency Department on the above date and was hospitalized for further evaluation of their emergent condition. - New Patient This patient is new to me today: Yes Date on this admission: 01/14/17 - Critical Care Critical Care patient: Yes Total Critical Care Time (in minutes): 40 Critical Care Statement: The care of this patient involved high complexity decision making to prevent further life threatening deterioration of the patient 's condition and/or to evaluate & treat vital organ system(s) failure or risk of failure.
[2017-01-14] MEDS ORDERED: INSULIN REGULAR HUMAN 100 UNITS/ML *VIAL IVPUSH ONE (01:39)
[2017-01-14] MEDS ORDERED: ACETAMINOPHEN 1000 MG/100 ML VIAL (NON FORMULARY) IVPB PRN (01:42)
[2017-01-14] MEDS ORDERED: ACETAMINOPHEN INJECTION 100 ML IVPB ONE (01:49)
[2017-01-14] MEDS ORDERED: INSULIN REGULAR HUMAN 100 UNITS/ML *VIAL ONE (01:49)
[2017-01-14 02:40] LABS: ANION GAP 30 (8-16); CALCIUM 7.7 mg/dL (8.5-10.1); CO2 6 mmol/L (21-32); CREATININE 1.4 mg/dL (0.55-1.02)
[2017-01-14] MEDS: INSULIN REGULAR 100 UNITS in SODIUM CHLORIDE 99 ML IVPB SCH ×2 (02:59→08:52)
[2017-01-14 03:14] LABS: GLUCOSE,RANDOM 660 mg/dL (74-106)
[2017-01-14] MEDS ORDERED: CALCIUM GLUCONATE 10% - 1,000 MG/10 ML VIAL IVPB ONE ×2 (03:24→18:20)
[2017-01-14] MEDS ORDERED: SODIUM CHLORIDE 0.9% 500 ML INFUS.BAG IV ONE (03:26)
--- NOTE | 2017-01-14 04:55 | HP ---
CHIEF COMPLAINT: Epigastric pain X 1 day PCP: HISTORY OF PRESENT ILLNESS: 26 yo F with pmhx of Type I IDDM, gastroparesis, recurrent DKAs, and pancreatitis who presents with epigastric pain. Patient states that the pain started earlier today and characterizes it as dull 7/10 pain, radiating to the chest and back. Not aggravated by food, but relieved by pain meds. There is associated nausea and vomiting, with one episode of yellowish, non-bloody, non- bilious vomiting today. Patient has a hx of gastroparesis, with episodes once every two months. She has 1 bowel movement per week, and her last bowel movement was 3 days ago, well formed, non bloody and non mucoid. Patient states that she had flu like symptoms, sore throat and chills 1 week ago that resolved a couple of days ago. She has had contact with her abd three year old daughter who had severe flu like symptoms prior about a week prior to her symptoms. Patient also reports SOB and lethargy and mild confusion for the past couple of days. She has not been able to maintain her diet and glucose monitoring since feeling ill. Her last BGM at home was today and she thinks it was in the 300s. She takes 60units of long acting insulin and 20-23 units of short acting insulin at home. Patient denies headache, LOC, dysuria or leg swelling. Patient states her last normal menstrual period was a couple of weeks ago. ER course was notable for: (1) WBCs-42.1, Alk phosp-169 (2) BUN/Cr-29/1.1 (3) Glucose-627 4)Anion gap- 28 5) Na-123, corrected-135 6) K-5.6 7) UA- ketones-2+, Pr-2+, glu 3+ 8)Zosyn and vanco-given 9) Bolus 1L normal saline given 10) EKG- tented T waves, sinus tachy Recent Travel: None PAST MEDICAL HISTORY: Type 1 IDDM- diagnosed at 9years of age Gastroparesis (diagnosed 3 years ago) Recurrent DKAs Pancreatitis PAST SURGICAL HISTORY: Social History: Smoking: Alcohol: Drugs: Family History: Allergies No Known Allergies Allergy (Verified 01/13/17 18:59) HOME MEDICATIONS: Home Medications Medication Instructions Recorded Insulin Lispro [Humalog] 0 unit SQ ASDIR 07/18/13 Amitriptyline HCl [Elavil -] 3 tab PO DAILY #0 06/27/15 Acetaminophen [Tylenol] 650 mg PO Q4H PRN #20 tablet 01/17/16 Metoclopramide HCl [Reglan] 10 mg PO Q6H PRN #15 tablet 01/17/16 Ranitidine HCl [Zantac] 150 mg PO BID PRN #20 tablet 01/17/16 Insulin Glargine,Hum.rec.anlog 60 unit SQ HS 12/08/16 [Clay Sonybrian U-100] REVIEW OF SYSTEMS CONSTITUTIONAL: Absent: fever, chills, diaphoresis, generalized weakness+, malaise+, loss of appetite, weight change HEENT: Absent: rhinorrhea, nasal congestion, throat pain, throat swelling, difficulty swallowing, mouth swelling, ear pain, eye pain, visual changes CARDIOVASCULAR: Absent: chest pain, syncope, palpitations, irregular heart rate, lightheadedness , peripheral edema RESPIRATORY: Absent: cough, shortness of breath, dyspnea with exertion, orthopnea, wheezing, stridor, hemoptysis GASTROINTESTINAL: Absent: abdominal pain+, abdominal distension, nausea+, vomiting+, diarrhea, constipation+, melena, hematochezia GENITOURINARY: Absent: dysuria, frequency, urgency, hesitancy, hematuria, flank pain, genital pain MUSCULOSKELETAL: Absent: myalgia, arthralgia, joint swelling, back pain, neck pain SKIN: Absent: rash, itching, pallor HEMATOLOGIC/IMMUNOLOGIC: Absent: easy bleeding, easy bruising, lymphadenopathy, frequent infections ENDOCRINE: Absent: unexplained weight gain, unexplained weight loss, heat intolerance, cold intolerance NEUROLOGIC: Absent: headache, focal weakness or paresthesias, dizziness, unsteady gait, seizure, mental status changes, bladder or bowel incontinence PSYCHIATRIC: Absent: anxiety, depression, suicidal or homicidal ideation, hallucinations. PHYSICAL EXAMINATION Vital Signs - 24 hr 01/13/17 01/13/17 01/14/17 18:33 19:00 03:11 Temperature 97.2 F L 98 F Pulse Rate 135 H Pulse Rate [ 129 H Apical] Respiratory 28 H 17 Rate Blood Pressure 130/95 Blood Pressure 137/74 [Left Arm] O2 Sat by Pulse 100 100 99 Oximetry (%) GENERAL: Awake, alert, and fully oriented, in mild painful distress. EYES: Pupils equal, round and reactive to light, extraocular movements intact, sclera anicteric, conjunctiva clear. No lid lag. EARS, NOSE, THROAT: oropharynx clear without exudates. Dry mucous membranes++. NECK: supple, LUNGS: Breath sounds equal, clear to auscultation bilaterally. No wheezes, and no crackles. No accessory muscle use. HEART: Regular rate and rhythm, tachycardic, S1 and S2 without murmur ABDOMEN: Soft, mild generalized tenderness, hypoactive bowel sounds, no guarding , no rebound, no masses. MUSCULOSKELETAL: Normal range of motion at all joints. No bony deformities or tenderness. No CVA tenderness. UPPER EXTREMITIES: 2+ pulses, warm, well-perfused. No cyanosis. No clubbing. No peripheral edema. LOWER EXTREMITIES: 2+ pulses, warm, well-perfused. No calf tenderness. No peripheral edema. NEUROLOGICAL: No facial droop, no focal neurological deficits. Cranial nerves II-XII intact. Normal speech. Gait not observed PSYCHIATRIC: Cooperative. Good eye contact. Laboratory Results - last 24 hr 01/13/17 01/13/17 01/13/17 20:20 20:40 20:40 WBC 42.1 H* D RBC 4.39 Hgb 13.7 Hct 40.9 MCV 93.1 MCH 31.2 MCHC 33.5 RDW 13.7 Plt Count 453 H D MPV 8.1 Total Counted Neutrophils % 91.0 H D Neutrophils % (Manual) Band Neutrophils % Lymphocytes % 5.0 L D Lymphocytes % (Manual) Monocytes % 4.0 Monocytes % (Manual) Eosinophils % (Manual) Basophils % (Manual) Myelocytes % (Man) Promyelocytes % (Man) Blast Cells % (Manual) Nucleated RBC % Metamyelocytes Hypersegmented Neuts Plasma Cells Smudge Cells Other Cell Type Hypochromia Toxic Granulation Dohle Bodies George Rods Platelet Estimate Adequate Platelet Comment RBC Morphology Appears normal Polychromasia Poikilocytosis Basophilic Stippling Anisocytosis Microcytosis Macrocytosis Spherocytes Siderocytes Sickle Cells Target Cells Tear Drop Cells Ovalocytes Stomatocytes Helmet Cells [place] Bodies [place] Rings [place] Cells Acanthocytes (Spur) Rouleaux Fragmented RBCs Schistocytes Sodium Cancelled Potassium Cancelled Chloride Cancelled Carbon Dioxide Cancelled Anion Gap Cancelled BUN Cancelled Creatinine Cancelled Creat Clearance w eGFR Cancelled POC Glucometer Random Glucose Cancelled Calcium Cancelled Total Bilirubin Cancelled AST Cancelled ALT Cancelled Alkaline Phosphatase Cancelled Total Protein Cancelled Albumin Cancelled Lipase Cancelled Serum , Qual Urine Color Ltyellow Urine Appearance Cloudy Urine pH 5.0 Ur Specific [place] 1.027 Urine Protein 2+ H Urine Glucose (UA) 3+ H Urine Ketones 2+ H Urine Blood 1+ H Urine Nitrite Negative Urine Bilirubin Negative Urine Urobilinogen Negative Ur Leukocyte Esterase Negative Urine RBC 2-5 Urine WBC 5-10 Ur Epithelial Cells Moderate Acetone, Qual 01/13/17 01/13/17 01/13/17 20:40 20:40 20:40 WBC RBC Hgb Hct MCV MCH MCHC RDW Plt Count MPV Total Counted Cancelled Neutrophils % Neutrophils % (Manual) Cancelled Band Neutrophils % Cancelled Lymphocytes % Lymphocytes % (Manual) Cancelled Monocytes % Monocytes % (Manual) Cancelled Eosinophils % (Manual) Cancelled Basophils % (Manual) Cancelled Myelocytes % (Man) Cancelled Promyelocytes % (Man) Cancelled Blast Cells % (Manual) Cancelled Nucleated RBC % Cancelled Metamyelocytes Cancelled Hypersegmented Neuts Cancelled Plasma Cells Cancelled Smudge Cells Cancelled Other Cell Type Cancelled Hypochromia Cancelled Toxic Granulation Cancelled Dohle Bodies Cancelled George Rods Cancelled Platelet Estimate Cancelled Platelet Comment Cancelled RBC Morphology Polychromasia Cancelled Poikilocytosis Cancelled Basophilic Stippling Cancelled Anisocytosis Cancelled Microcytosis Cancelled Macrocytosis Cancelled Spherocytes Cancelled Siderocytes Cancelled Sickle Cells Cancelled Target Cells Cancelled Tear Drop Cells Cancelled Ovalocytes Cancelled Stomatocytes Cancelled Helmet Cells Cancelled [place] Bodies Cancelled [place] Rings Cancelled Elly Cells Cancelled Acanthocytes (Spur) Cancelled Rouleaux Cancelled Fragmented RBCs Cancelled Schistocytes Cancelled Sodium Potassium Chloride Carbon Dioxide Anion Gap BUN Creatinine Creat Clearance w eGFR POC Glucometer Random Glucose Calcium Total Bilirubin AST ALT Alkaline Phosphatase Total Protein Albumin Lipase Serum , Qual Negative Urine Color Urine Appearance Urine pH Ur Specific [place] Urine Protein Urine Glucose (UA) Urine Ketones Urine Blood Urine Nitrite Urine Bilirubin Urine Urobilinogen Ur Leukocyte Esterase Urine RBC Urine WBC Ur Epithelial Cells Acetone, Qual Positive large 3+ H 01/13/17 01/13/17 01/14/17 21:50 Unknown 01:31 WBC RBC Hgb Hct MCV MCH MCHC RDW Plt Count MPV Total Counted Neutrophils % Neutrophils % (Manual) Band Neutrophils % Lymphocytes % Lymphocytes % (Manual) Monocytes % Monocytes % (Manual) Eosinophils % (Manual) Basophils % (Manual) Myelocytes % (Man) Promyelocytes % (Man) Blast Cells % (Manual) Nucleated RBC % Metamyelocytes Hypersegmented Neuts Plasma Cells Smudge Cells Other Cell Type Hypochromia Toxic Granulation Dohle Bodies George Rods Platelet Estimate Platelet Comment RBC Morphology Polychromasia Poikilocytosis Basophilic Stippling Anisocytosis Microcytosis Macrocytosis Spherocytes Siderocytes Sickle Cells Target Cells Tear Drop Cells Ovalocytes Stomatocytes Helmet Cells [place] Bodies [place] Rings Elly Cells Acanthocytes (Spur) Rouleaux Fragmented RBCs Schistocytes Sodium 123 L* D 119 L* Potassium 5.6 H D 6.6 H* Chloride 86 L D 83 L Carbon Dioxide 9 L D 6 L D Anion Gap 28 H 30 H BUN 29 H D 34 H Creatinine 1.1 H D 1.4 H D Creat Clearance w eGFR > 60 POC Glucometer Random Glucose 627 H* D 660 H* Calcium 8.5 7.7 L Total Bilirubin 0.7 D AST 12 L D ALT 14 Alkaline Phosphatase 169 H D Total Protein 7.4 Albumin 3.6 Lipase 42 L Serum , Qual Urine Color Urine Appearance Urine pH Ur Specific [place] Urine Protein Urine Glucose (UA) Urine Ketones Urine Blood Urine Nitrite Urine Bilirubin Urine Urobilinogen Ur Leukocyte Esterase Urine RBC Urine WBC Ur Epithelial Cells Acetone, Qual 01/14/17 04:27 WBC RBC Hgb Hct MCV MCH MCHC RDW Plt Count MPV Total Counted Neutrophils % Neutrophils % (Manual) Band Neutrophils % Lymphocytes % Lymphocytes % (Manual) Monocytes % Monocytes % (Manual) Eosinophils % (Manual) Basophils % (Manual) Myelocytes % (Man) Promyelocytes % (Man) Blast Cells % (Manual) Nucleated RBC % Metamyelocytes Hypersegmented Neuts Plasma Cells Smudge Cells Other Cell Type Hypochromia Toxic Granulation Dohle Bodies George Rods Platelet Estimate Platelet Comment RBC Morphology Polychromasia Poikilocytosis Basophilic Stippling Anisocytosis Microcytosis Macrocytosis Spherocytes Siderocytes Sickle Cells Target Cells Tear Drop Cells Ovalocytes Stomatocytes Helmet Cells [place] Bodies [place] Rings [place] Cells Acanthocytes (Spur) Rouleaux Fragmented RBCs Schistocytes Sodium Potassium Chloride Carbon Dioxide Anion Gap BUN Creatinine Creat Clearance w eGFR POC Glucometer > 400 Random Glucose Calcium Total Bilirubin AST ALT Alkaline Phosphatase Total Protein Albumin Lipase Serum , Qual Urine Color Urine Appearance Urine pH Ur Specific [place] Urine Protein Urine Glucose (UA) Urine Ketones Urine Blood Urine Nitrite Urine Bilirubin Urine Urobilinogen Ur Leukocyte Esterase Urine RBC Urine WBC Ur Epithelial Cells Acetone, Qual ASSESSMENT/PLAN: 26 yo F with pmhx of Type I IDDM, gastroparesis, recurrent DKAs, and pancreatitis who presents with 1 week history of flulike symptoms and 1 day hx of epigastric pain #DKA Could be 2/2 to flu Glu in 600s, Anion gap- 28, Ketonuria IV normal saline 2L bolus IV normal saline 125ml/hr Iv 10u regular insulin bolus-given iv regular insulin 0.1/kg/hr BMP Q4H BGM Q1H NPO Flu swab Resp virus pcr Hold antibiotics ICU consult #Hyperkalemia K-5.6 Likely due to transcellular shift IV normal saline 2L bolus Insulin EKG- tented T waves sinus tachy Calcium gluconate stat BMP Q4H Monitor #Abdominal pain Likely due to DKA, could be due to gastroparesis Iv tylenol stat (avoid opioids) IV normal saline 125ml/hr Monitor #Leucocytosis WBCs-42.1 Could be reactive Trend Hold antibiotics #Elevated Alk Phos Could be 2/2 to hx of pancreatitis Trend #FEN IV normal saline 125ml/hr Monitor electrolytes, repeat BMP NPO #Propylaxis Heparin SubQ 5000 tid #Dispo Admit ICU Visit type - Emergency Visit Emergency Visit: Yes ED Registration Date: 01/14/17 Care time: The patient presented to the Emergency Department on the above date and was hospitalized for further evaluation of their emergent condition. - New Patient This patient is new to me today: Yes Date on this admission: 01/14/17 - Critical Care Critical Care patient: Yes Total Critical Care Time (in minutes): 40 Critical Care Statement: The care of this patient involved high complexity decision making to prevent further life threatening deterioration of the patient 's condition and/or to evaluate & treat vital organ system(s) failure or risk of failure.
--- NOTE | 2017-01-14 04:55 | CONSULT ---
Consult Consult Specialty:: Pulm/CCM Reason for Consultation:: DKA - History of Present Illness Chief Complaint: Epigastric pain History of Present Illness: 26 ivett with PMH of type 1 IDDM, gastroparesis, frequent DKA due to noncompliance , and pancreatitis, who presents with c/o sore throat and occasional with nbnb vomiting about 1 week ago for which she did not seek treatment. For the last two days has had confusion, chills, poor po intake and insulin non-compliance and presents to ED. In the ED T 97.2, HR 135, RR 28, BP 130/95, 100% on room air. Labs notable for WBC 42.1 with 91% neuts, Na 119, K 6.6, BG 660, HCO3 6, AGAP30, Lipase 42, + urine ketones. She has c/o dull epigastric abdominal pain, nausea. She denies h/ a, fever, dysuria, CP, sob, cough, diarrhea. CXR clear. Of note reported last DKA was a month ago at which time she left AMA after her symptoms were controlled. She was given a fluid bolus of 2L and started on insulin drip. She was cultured and dosed Zosyn and vanco empirically. She was transferred to the ICU for further care. In ICU rec'd somnolent but easily aroused, HR 130, BP 129/81, O2 sat 95% on room. Started on NS at 150cc/h. Insulin up to 8u/h for BG 432. - History Source History Provided By: Patient, Medical Record - Past Medical History Gastrointestinal: Yes: Constipation, Pancreatitis, Other (Diabetic Gastroparesis ) ...LMP: 10/30/16 Psych: Yes: Anxiety, Depression Endocrine: Yes: Diabetes Mellitus (type 1), Other (dka) - Past Surgical History Past Surgical History: Yes: Upper Endoscopy (spring diabetic gastroparesis) - Alcohol/Substance Use Hx Alcohol Use: No History of Substance Use: reports: Marijuana - Smoking History Smoking history: Current every day smoker Have you smoked in the past 12 months: Yes Aproximately how many cigarettes per day: 10 - Social History ADL: Independent 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 History of Recent Travel: No Home Medications - Allergies Allergies/Adverse Reactions: Allergies Allergy/AdvReac Type Severity Reaction Status Date / Time No Known Allergies Allergy Verified 01/13/17 18:59 - Home Medications Home Medications: Ambulatory Orders Insulin Lispro [Humalog] 0 unit SQ ASDIR 07/18/13 Amitriptyline HCl [Elavil -] 3 tab PO DAILY #0 06/27/15 Acetaminophen [Tylenol] 650 mg PO Q4H PRN #20 tablet 01/17/16 Metoclopramide HCl [Reglan] 10 mg PO Q6H PRN #15 tablet 01/17/16 Ranitidine HCl [Zantac] 150 mg PO BID PRN #20 tablet 01/17/16 Insulin Glargine,Hum.rec.anlog [Basaglar Kwikpen U-100] 60 unit SQ HS 12/08/16 Family Disease History - Family Disease History Family Disease History: Diabetes: Grandparent, Other: Father (healthy and living ), Mother (healthy and living) Review of Systems - Review of Systems Constitutional: reports: Chills, Loss of Appetite Eyes: reports: No Symptoms HENT: reports: No Symptoms Neck: reports: No Symptoms Cardiovascular: reports: No Symptoms Respiratory: reports: Other (sore throat) Gastrointestinal: reports: Abdominal Pain, Nausea, Vomiting Genitourinary: reports: No Symptoms Neurological: reports: Confusion Endocrine: reports: No Symptoms Hematology/Lymphatic: reports: No Symptoms Psychiatric: reports: No Symptoms Physical Exam Vital Signs: Vital Signs Temperature 98 F 01/14/17 03:11 Pulse Rate 129 H 01/14/17 03:11 Respiratory Rate 17 01/14/17 03:11 Blood Pressure 137/74 01/14/17 03:11 O2 Sat by Pulse Oximetry (%) 99 01/14/17 03:11 Constitutional: Yes: Well Nourished Eyes: Yes: WNL HENT: Yes: Atraumatic, Normocephalic Neck: Yes: Supple, Trachea Midline Cardiovascular: Yes: Regular Rate and Rhythm, Tachycardia, S1, S2 Respiratory: Yes: Regular, CTA Bilaterally Gastrointestinal: Yes: Normal Bowel Sounds, Soft ...Rectal Exam: Yes: Deferred Renal/: Yes: WNL Musculoskeletal: Yes: WNL Extremities: Yes: WNL Edema: No Peripheral Pulses WNL: Yes Integumentary: Yes: WNL Neurological: Yes: WNL, Alert, Oriented ...Motor Strength: WNL Psychiatric: Yes: WNL Labs: CBC, BMP 01/13/17 20:40 CBC,CMP WBC 42.1 K/mm3 (4.0-10.0) H* D 01/13/17 20:40 RBC 4.39 M/mm3 (3.60-5.2) 01/13/17 20:40 Hgb 13.7 GM/dL (10.7-15.3) 01/13/17 20:40 Hct 40.9 % (32.4-45.2) 01/13/17 20:40 MCV 93.1 fl (80-96) 01/13/17 20:40 MCH 31.2 pg (25.7-33.7) 01/13/17 20:40 MCHC 33.5 g/dl (32.0-36.0) 01/13/17 20:40 RDW 13.7 % (11.6-15.6) 01/13/17 20:40 Plt Count 453 K/MM3 (134-434) H D 01/13/17 20:40 MPV 8.1 fl (7.5-11.1) 01/13/17 20:40 Total Counted Cancelled 01/13/17 20:40 Neutrophils % 91.0 % (42.8-82.8) H D 01/13/17 20:40 Neutrophils % (Manual) Cancelled 01/13/17 20:40 Band Neutrophils % Cancelled 01/13/17 20:40 Lymphocytes % 5.0 % (8-40) L D 01/13/17 20:40 Lymphocytes % (Manual) Cancelled 01/13/17 20:40 Monocytes % 4.0 % (3.8-10.2) 01/13/17 20:40 Monocytes % (Manual) Cancelled 01/13/17 20:40 Eosinophils % (Manual) Cancelled 01/13/17 20:40 Basophils % (Manual) Cancelled 01/13/17 20:40 Myelocytes % (Man) Cancelled 01/13/17 20:40 Promyelocytes % (Man) Cancelled 01/13/17 20:40 Blast Cells % (Manual) Cancelled 01/13/17 20:40 Nucleated RBC % Cancelled 01/13/17 20:40 Metamyelocytes Cancelled 01/13/17 20:40 Hypersegmented Neuts Cancelled 01/13/17 20:40 Plasma Cells Cancelled 01/13/17 20:40 Smudge Cells Cancelled 01/13/17 20:40 Other Cell Type Cancelled 01/13/17 20:40 Hypochromia Cancelled 01/13/17 20:40 Toxic Granulation Cancelled 01/13/17 20:40 Dohle Bodies Cancelled 01/13/17 20:40 George Rods Cancelled 01/13/17 20:40 Platelet Estimate Adequate (NORMAL) 01/13/17 20:40 Platelet Comment Cancelled 01/13/17 20:40 RBC Morphology Appears normal 01/13/17 20:40 Polychromasia Cancelled 01/13/17 20:40 Poikilocytosis Cancelled 01/13/17 20:40 Basophilic Stippling Cancelled 01/13/17 20:40 Anisocytosis Cancelled 01/13/17 20:40 Microcytosis Cancelled 01/13/17 20:40 Macrocytosis Cancelled 01/13/17 20:40 Spherocytes Cancelled 01/13/17 20:40 Siderocytes Cancelled 01/13/17 20:40 Sickle Cells Cancelled 01/13/17 20:40 Target Cells Cancelled 01/13/17 20:40 Tear Drop Cells Cancelled 01/13/17 20:40 Ovalocytes Cancelled 01/13/17 20:40 Stomatocytes Cancelled 01/13/17 20:40 Helmet Cells Cancelled 01/13/17 20:40 Trejo-Wittenberg Bodies Cancelled 01/13/17 20:40 Robins Rings Cancelled 01/13/17 20:40 Elly Cells Cancelled 01/13/17 20:40 Acanthocytes (Spur) Cancelled 01/13/17 20:40 Rouleaux Cancelled 01/13/17 20:40 Fragmented RBCs Cancelled 01/13/17 20:40 Schistocytes Cancelled 01/13/17 20:40 Sodium 119 mmol/L (136-145) L* 01/14/17 01:31 Potassium 6.6 mmol/L (3.5-5.1) H* 01/14/17 01:31 Chloride 83 mmol/L (98-107) L 01/14/17 01:31 Carbon Dioxide 6 mmol/L (21-32) L D 01/14/17 01:31 Anion Gap 30 (8-16) H 01/14/17 01:31 BUN 34 mg/dL (7-18) H 01/14/17 01:31 Creatinine 1.4 mg/dL (0.55-1.02) H D 01/14/17 01:31 Creat Clearance w eGFR > 60 (>60) 01/13/17 21:50 POC Glucometer > 400 UNITS (80-120) 01/14/17 04:27 Random Glucose 660 mg/dL (74-106) H* 01/14/17 01:31 Calcium 7.7 mg/dL (8.5-10.1) L 01/14/17 01:31 Total Bilirubin 0.7 mg/dL (0.2-1.0) D 01/13/17 21:50 AST 12 U/L (15-37) L D 01/13/17 21:50 ALT 14 U/L (12-78) 01/13/17 21:50 Alkaline Phosphatase 169 U/L (45-117) H D 01/13/17 21:50 Total Protein 7.4 g/dl (6.4-8.2) 01/13/17 21:50 Albumin 3.6 g/dl (3.4-5.0) 01/13/17 21:50 Lipase 42 U/L (73-393) L 01/13/17 Unknown Serum , Qual Negative 01/13/17 20:40 Anion Gap Anion Gap 30 (8-16) H 01/14/17 01:31 Initial Vital Signs Temp Pulse Resp BP Pulse Ox 97.2 F L 135 H 28 H 130/95 100 01/13/17 18:33 01/13/17 18:33 01/13/17 18:33 01/13/17 18:33 01/13/17 18:33 Current Medications Acetaminophen (Ofirmev Injection -) 1,000 mg IVPB Q6H PRN PRN Reason: FEVER OR PAIN Last Admin: 01/14/17 01:44 Dose: 1,000 mg Chlorhexidine Gluconate (Hibiclens For Decolonization -) 1 applic TP HS KARLENE Heparin Sodium (Porcine) (Heparin -) 5,000 unit SQ TID KARLENE Sodium Chloride (Normal Saline -) 1,000 mls @ 100 mls/hr IV ASDIR KARLENE Last Admin: 01/14/17 02:58 Dose: 100 mls/hr Insulin Human Regular 100 (units/ Sodium Chloride) 100 mls @ 6.35 mls/hr IVPB TITR KARLENE; 0.1 UNITS/KG/HR PRN Reason: Protocol Last Admin: 01/14/17 02:59 Dose: 0.1 units/kg/hr, 6.35 mls/hr Mupirocin (Bactroban Ointment (For Decolonization) -) 1 applic NS BID KARLENE Stop: 01/19/17 09:59 Problem List - Problems (1) Abdominal pain Code(s): R10.9 - UNSPECIFIED ABDOMINAL PAIN Qualifiers: Abdominal location: epigastric Qualified Code(s): R10.13 - Epigastric pain (2) Diabetic ketoacidosis associated with type 1 diabetes mellitus Code(s): E10.10 - TYPE 1 DIABETES MELLITUS WITH KETOACIDOSIS WITHOUT COMA Qualifiers: Diabetes mellitus complication detail: without coma Qualified Code(s): E10.10 - Type 1 diabetes mellitus with ketoacidosis without coma (3) Nausea & vomiting Code(s): R11.2 - NAUSEA WITH VOMITING, UNSPECIFIED Qualifiers: Vomiting type: unspecified Vomiting Intractability: unspecified Qualified Code(s): R11.2 - Nausea with vomiting, unspecified (4) DKA (diabetic ketoacidosis) Code(s): E13.10 - OTH DIABETES MELLITUS WITH KETOACIDOSIS WITHOUT COMA Qualifiers: Diabetes mellitus type: type 1 Diabetes mellitus complication detail: without coma Qualified Code(s): E10.10 - Type 1 diabetes mellitus with ketoacidosis without coma (5) Dehydration Code(s): E86.0 - DEHYDRATION (6) Epigastric abdominal pain Code(s): R10.13 - EPIGASTRIC PAIN (7) Gastroparesis Code(s): K31.84 - GASTROPARESIS (8) Hyperglycemia Code(s): R73.9 - HYPERGLYCEMIA, UNSPECIFIED (9) Leukemoid reaction Code(s): D72.823 - LEUKEMOID REACTION (10) Insulin dependent diabetes mellitus Code(s): E11.9 - TYPE 2 DIABETES MELLITUS WITHOUT COMPLICATIONS; Z79.4 - FACILITY SERVICE MANAGER (CURRENT) USE OF INSULIN (11) 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 Also c/b hyponatremia in setting of dehydration Plan: Endocrine: DKA -Insulin drip for BG goal 150-200 -NS IVF at 150 cc/h for rehydration -Switch to D%NS +20K when BG<250 -BMP q4 to assess AGAP and electrolytes -Replete K as needed -NPO for now -Advance diet when BG <200 and can tolerate ID: Leukocytosis unclear source -f/u culture -Send viral swab and urine antigens -ID consult -Cont empiric Zosyn -Trend WBC and lactate Pulm: O2 NC for o2 sat >92% GI:Diabetic gastroparesis, hx pancreatitis -Trend Lipase -Consider CT abd and pelvis if cont abd pain and uptrending Lipase -Famotidine for GERD Renal:AG metabolic acidosis; severe hyponatremia in setting of dehydration ( corrected Na ~128) -Monitor BMP q4; -monitor UOP -NS IVF -Replete electrolytes DVT proph Tomasa Smith, ACNP CC time 35mins
[2017-01-14 05:13] VITALS: BMI 36.1
--- NOTE | 2017-01-14 06:16 | PN ---
Teaching Attending Note Name of Resident: Perla Nuno ATTENDING PHYSICIAN STATEMENT I saw and evaluated the patient. Chart, data, imaging reviewed. I reviewed the resident's note and discussed the case with the resident. I agree with the resident's findings and plan as documented with modifications below. SUBJECTIVE: 26 yo with type 1 DM, gastroparesis c/o malaise, abdominal pain , nausea, vomiting, found to have DKA in ER. Patient has been admitted for uncontrolled DM many times in the past. She admits to being noncompliant with her medications. No recent travels. Reports that family members were sick with the flu and she may have gotten sick from them. OBJECTIVE: Last Vital Signs Temp Pulse Resp BP Pulse Ox 98 F 129 H 17 137/74 99 01/14/17 03:11 01/14/17 03:11 01/14/17 03:11 01/14/17 03:11 01/14/17 03:11 general- appeared uncomfortable, nontoxic heent - at , nc, dry oral mucosa neck- supple, no masses Chest- cta b/l cv-s1+s2+ RRR skin- no rashes Abnormal Lab Results 01/13/17 01/13/17 01/13/17 20:20 20:40 20:40 WBC 42.1 H* D Plt Count 453 H D Neutrophils % 91.0 H D Lymphocytes % 5.0 L D Sodium Potassium Chloride Carbon Dioxide Anion Gap BUN Creatinine Random Glucose Calcium AST Alkaline Phosphatase Lipase Urine Protein 2+ H Urine Glucose (UA) 3+ H Urine Ketones 2+ H Urine Blood 1+ H Acetone, Qual Positive large 3+ H 01/13/17 01/13/17 01/14/17 21:50 Unknown 01:31 WBC Plt Count Neutrophils % Lymphocytes % Sodium 123 L* D 119 L* Potassium 5.6 H D 6.6 H* Chloride 86 L D 83 L Carbon Dioxide 9 L D 6 L D Anion Gap 28 H 30 H BUN 29 H D 34 H Creatinine 1.1 H D 1.4 H D Random Glucose 627 H* D 660 H* Calcium 7.7 L AST 12 L D Alkaline Phosphatase 169 H D Lipase 42 L Urine Protein Urine Glucose (UA) Urine Ketones Urine Blood Acetone, Qual ASSESSMENT AND PLAN: #DKA 2/2 medication noncompliance with ketones found in urine. Ordered insulin IV push and drip in ER. -Admit to medical ICU -insulin bolus - 10 units IVP -inuslin drip 0.1 units/kg/hr -fingersticks q 1hrs -replace electrolytes PRN -Generous IV fluid hydration -DKA protocol -conservation educator -NPO for now -advance diet as tolerated -flu swab POC #leukocytosis- probably reactive from DKA, no source of infection identified #Hyperkalemia -2/2 DKA, EKG with no major changes from old one -insulin drip -telemetry (in icu) -recheck K #Psuedohyponatremia- corrected Na- 134 after correction for glucos #OLEG - likely prerenal -IV fluid hydration #DVT ppx -SCDs #diet -NPO -advance diabetic diet as tolerated
[2017-01-14] MEDS: HEPARIN NA (PORCINE) 5,000 UNITS/ML 1ML VIAL SQ SCH ×3 (06:36→21:00)
[2017-01-14 06:46] LABS: MCH 31.4 pg (25.7-33.7); MCHC 34.5 g/dl (32.0-36.0); MEAN PLT VOLUME 7.8 fl (7.5-11.1); PLATELET COUNT 436 K/MM3 (134-434); RDW 13.6 % (11.6-15.6); WHITE BLOOD COUNT 41.7 K/mm3 (4.0-10.0)
[2017-01-14 07:18] LABS: ALBUMIN 3.3 g/dl (3.4-5.0); ALK PHOS 151 U/L (45-117); ANION GAP 20 (8-16); BILIRUBIN,TOTAL 0.7 mg/dL (0.2-1.0); CALCIUM 7.9 mg/dL (8.5-10.1); CO2 13 mmol/L (21-32); CREATININE 1.2 mg/dL (0.55-1.02); GLUCOSE,RANDOM 268 mg/dL (74-106); SGPT/ALT 12 U/L (12-78); TOT PROT 6.8 g/dl (6.4-8.2)
[2017-01-14 07:32] LABS: SGOT/AST 4 U/L (15-37)
[2017-01-14 08:59] LABS: MCH 30.5 pg (25.7-33.7); MCHC 33.8 g/dl (32.0-36.0); MEAN CELL VOLUME 90.4 fl (80-96); MEAN PLT VOLUME 7.2 fl (7.5-11.1); PLATELET COUNT 449 K/MM3 (134-434); RDW 13.6 % (11.6-15.6)
[2017-01-14 09:09] LABS: WHITE BLOOD COUNT 35.1 K/mm3 (4.0-10.0)
[2017-01-14 09:26] LABS: MAGNESIUM 1.9 mg/dL (1.8-2.4); PHOSPHOROUS 1.8 mg/dL (2.5-4.9)
[2017-01-14] MEDS ORDERED: MUPIROCIN 2% TOPICAL OINTMENT FOR DECOLONIZATION NS SCH (10:00)
[2017-01-14] MEDS ORDERED: PIPERACILLIN/TAZOB 3.375 GM 50 ML IVPB ONE (10:00)
[2017-01-14] MEDS ORDERED: D5-NS + 40 MEQ KCL - 40 MEQ/1,000 ML INFUS.BAG IV SCH (10:30)
[2017-01-14] MEDS ORDERED: D5-NS + 20 MEQ KCL - 20 MEQ/1,000 ML INFUS.BAG IV SCH (10:30)
[2017-01-14 12:51] LABS: ANION GAP 9 (8-16); CALCIUM 7.5 mg/dL (8.5-10.1); CO2 22 mmol/L (21-32); CREATININE 0.8 mg/dL (0.55-1.02); GLUCOSE,RANDOM 86 mg/dL (74-106)
--- NOTE | 2017-01-14 13:22 | PN ---
Physical Exam: SUBJECTIVE: Patient seen and examined laying in bed; slightly diaphoretic; c/o tiredness. Denies n, v, abdominal pain, fever, chills, cp, sob. OBJECTIVE: Vital Signs Period Temp Pulse Resp BP Sys/Plata Pulse Ox Last 24 Hr 97.2 F-98.8 F 117-135 17-28 125-144/71-95 99-100 GENERAL: The patient is awake, alert, and fully oriented, in no acute distress. HEAD: Normal with no signs of trauma. EYES: PERRL, extraocular movements intact, sclera anicteric, conjunctiva clear. No ptosis. ENT: Ears normal, nares patent, oropharynx clear without exudates, moist mucous membranes. NECK: Trachea midline, full range of motion, supple. LUNGS: Breath sounds equal, clear to auscultation bilaterally, no wheezes, no crackles, no accessory muscle use. HEART: Regular rate and rhythm, S1, S2 without murmur, rub or gallop. ABDOMEN: Soft, nontender, nondistended, normoactive bowel sounds, no guarding, no rebound, no hepatosplenomegaly, no masses. EXTREMITIES: 2+ pulses, warm, well-perfused, no edema. NEUROLOGICAL: Cranial nerves II through XII grossly intact. Normal speech, gait not observed. PSYCH: Normal mood, normal affect. SKIN: Warm, dry, normal turgor, no rashes or lesions noted Laboratory Results - last 24 hr 01/13/17 01/13/17 01/13/17 20:20 20:40 20:40 WBC 42.1 H* D RBC 4.39 Hgb 13.7 Hct 40.9 MCV 93.1 MCH 31.2 MCHC 33.5 RDW 13.7 Plt Count 453 H D MPV 8.1 Total Counted Neutrophils % 91.0 H D Neutrophils % (Manual) Band Neutrophils % Lymphocytes % 5.0 L D Lymphocytes % (Manual) Monocytes % 4.0 Monocytes % (Manual) Eosinophils % (Manual) Basophils % (Manual) Myelocytes % (Man) Promyelocytes % (Man) Blast Cells % (Manual) Nucleated RBC % Metamyelocytes Hypersegmented Neuts Plasma Cells Smudge Cells Other Cell Type Hypochromia Toxic Granulation Dohle Bodies George Rods Platelet Estimate Adequate Platelet Comment RBC Morphology Appears normal Polychromasia Poikilocytosis Basophilic Stippling Anisocytosis Microcytosis Macrocytosis Spherocytes Siderocytes Sickle Cells Target Cells Tear Drop Cells Ovalocytes Stomatocytes Helmet Cells [place] Bodies [place] Cells Acanthocytes (Spur) Rouleaux Fragmented RBCs Schistocytes Sodium Cancelled Potassium Cancelled Chloride Cancelled Carbon Dioxide Cancelled Anion Gap Cancelled BUN Cancelled Creatinine Cancelled Creat Clearance w eGFR Cancelled POC Glucometer Random Glucose Cancelled Lactic Acid Calcium Cancelled Phosphorus Magnesium Total Bilirubin Cancelled AST Cancelled ALT Cancelled Alkaline Phosphatase Cancelled Total Protein Cancelled Albumin Cancelled Lipase Cancelled Serum , Qual Urine Color Ltyellow Urine Appearance Cloudy Urine pH 5.0 Ur Specific [place] 1.027 Urine Protein 2+ H Urine Glucose (UA) 3+ H Urine Ketones 2+ H Urine Blood 1+ H Urine Nitrite Negative Urine Bilirubin Negative Urine Urobilinogen Negative Ur Leukocyte Esterase Negative Urine RBC 2-5 Urine WBC 2-5 Ur Epithelial Cells Moderate Alcohol, Quantitative Acetone, Qual 01/13/17 01/13/17 01/13/17 20:40 20:40 20:40 WBC RBC Hgb Hct MCV MCH MCHC RDW Plt Count MPV Total Counted Cancelled Neutrophils % Neutrophils % (Manual) Cancelled Band Neutrophils % Cancelled Lymphocytes % Lymphocytes % (Manual) Cancelled Monocytes % Monocytes % (Manual) Cancelled Eosinophils % (Manual) Cancelled Basophils % (Manual) Cancelled Myelocytes % (Man) Cancelled Promyelocytes % (Man) Cancelled Blast Cells % (Manual) Cancelled Nucleated RBC % Cancelled Metamyelocytes Cancelled Hypersegmented Neuts Cancelled Plasma Cells Cancelled Smudge Cells Cancelled Other Cell Type Cancelled Hypochromia Cancelled Toxic Granulation Cancelled Dohle Bodies Cancelled [place] Rods Cancelled Platelet Estimate Cancelled Platelet Comment Cancelled RBC Morphology Polychromasia Cancelled Poikilocytosis Cancelled Basophilic Stippling Cancelled Anisocytosis Cancelled Microcytosis Cancelled Macrocytosis Cancelled Spherocytes Cancelled Siderocytes Cancelled Sickle Cells Cancelled Target Cells Cancelled Tear Drop Cells Cancelled Ovalocytes Cancelled Stomatocytes Cancelled Helmet Cells Cancelled [place] Bodies Cancelled [place] Rings Cancelled [place] Cells Cancelled Acanthocytes (Spur) Cancelled Rouleaux Cancelled Fragmented RBCs Cancelled Schistocytes Cancelled Sodium Potassium Chloride Carbon Dioxide Anion Gap BUN Creatinine Creat Clearance w eGFR POC Glucometer Random Glucose Lactic Acid Calcium Phosphorus Magnesium Total Bilirubin AST ALT Alkaline Phosphatase Total Protein Albumin Lipase Serum , Qual Negative Urine Color Urine Appearance Urine pH Ur Specific [place] Urine Protein Urine Glucose (UA) Urine Ketones Urine Blood Urine Nitrite Urine Bilirubin Urine Urobilinogen Ur Leukocyte Esterase Urine RBC Urine WBC Ur Epithelial Cells Alcohol, Quantitative Acetone, Qual Positive large 3+ H 01/13/17 01/13/17 01/14/17 21:50 Unknown 01:31 WBC RBC Hgb Hct MCV MCH MCHC RDW Plt Count MPV Total Counted Neutrophils % Neutrophils % (Manual) Band Neutrophils % Lymphocytes % Lymphocytes % (Manual) Monocytes % Monocytes % (Manual) Eosinophils % (Manual) Basophils % (Manual) Myelocytes % (Man) Promyelocytes % (Man) Blast Cells % (Manual) Nucleated RBC % Metamyelocytes Hypersegmented Neuts Plasma Cells Smudge Cells Other Cell Type Hypochromia Toxic Granulation Dohle Bodies George Rods Platelet Estimate Platelet Comment RBC Morphology Polychromasia Poikilocytosis Basophilic Stippling Anisocytosis Microcytosis Macrocytosis Spherocytes Siderocytes Sickle Cells Target Cells Tear Drop Cells Ovalocytes Stomatocytes Helmet Cells [place] Bodies [place] Rings [place] Cells Acanthocytes (Spur) Rouleaux Fragmented RBCs Schistocytes Sodium 123 L* D 119 L* Potassium 5.6 H D 6.6 H* Chloride 86 L D 83 L Carbon Dioxide 9 L D 6 L D Anion Gap 28 H 30 H BUN 29 H D 34 H Creatinine 1.1 H D 1.4 H D Creat Clearance w eGFR > 60 POC Glucometer Random Glucose 627 H* D 660 H* Lactic Acid Calcium 8.5 7.7 L Phosphorus Magnesium Total Bilirubin 0.7 D AST 12 L D ALT 14 Alkaline Phosphatase 169 H D Total Protein 7.4 Albumin 3.6 Lipase 42 L Serum , Qual Urine Color Urine Appearance Urine pH Ur Specific [place] Urine Protein Urine Glucose (UA) Urine Ketones Urine Blood Urine Nitrite Urine Bilirubin Urine Urobilinogen Ur Leukocyte Esterase Urine RBC Urine WBC Ur Epithelial Cells Alcohol, Quantitative Acetone, Qual 01/14/17 01/14/17 01/14/17 02:00 04:27 06:00 WBC RBC Hgb Hct MCV MCH MCHC RDW Plt Count MPV Total Counted Neutrophils % Neutrophils % (Manual) Band Neutrophils % Lymphocytes % Lymphocytes % (Manual) Monocytes % Monocytes % (Manual) Eosinophils % (Manual) Basophils % (Manual) Myelocytes % (Man) Promyelocytes % (Man) Blast Cells % (Manual) Nucleated RBC % Metamyelocytes Hypersegmented Neuts Plasma Cells Smudge Cells Other Cell Type Hypochromia Toxic Granulation Dohle Bodies George Rods Platelet Estimate Platelet Comment RBC Morphology Polychromasia Poikilocytosis Basophilic Stippling Anisocytosis Microcytosis Macrocytosis Spherocytes Siderocytes Sickle Cells Target Cells Tear Drop Cells Ovalocytes Stomatocytes Helmet Cells [place] Bodies [place] Rings [place] Cells Acanthocytes (Spur) Rouleaux Fragmented RBCs Schistocytes Sodium Cancelled 127 L Potassium Cancelled 4.5 D Chloride Cancelled 94 L D Carbon Dioxide Cancelled 13 L D Anion Gap Cancelled 20 H BUN Cancelled 31 H Creatinine Cancelled 1.2 H Creat Clearance w eGFR Cancelled 54.30 POC Glucometer > 400 Random Glucose Cancelled 268 H D Lactic Acid Calcium Cancelled 7.9 L Phosphorus Magnesium Total Bilirubin Cancelled 0.7 AST Cancelled 4 L D ALT Cancelled 12 Alkaline Phosphatase Cancelled 151 H Total Protein Cancelled 6.8 Albumin Cancelled 3.3 L Lipase Serum , Qual Urine Color Urine Appearance Urine pH Ur Specific [place] Urine Protein Urine Glucose (UA) Urine Ketones Urine Blood Urine Nitrite Urine Bilirubin Urine Urobilinogen Ur Leukocyte Esterase Urine RBC Urine WBC Ur Epithelial Cells Alcohol, Quantitative Acetone, Qual 01/14/17 01/14/17 01/14/17 06:00 06:14 07:56 WBC 41.7 H* RBC 3.86 Hgb 12.1 D Hct 35.1 MCV 91.0 MCH 31.4 MCHC 34.5 RDW 13.6 Plt Count 436 H MPV 7.8 Total Counted Neutrophils % Neutrophils % (Manual) Band Neutrophils % Lymphocytes % Lymphocytes % (Manual) Monocytes % Monocytes % (Manual) Eosinophils % (Manual) Basophils % (Manual) Myelocytes % (Man) Promyelocytes % (Man) Blast Cells % (Manual) Nucleated RBC % Metamyelocytes Hypersegmented Neuts Plasma Cells Smudge Cells Other Cell Type Hypochromia Toxic Granulation Dohle Bodies George Rods Platelet Estimate Platelet Comment RBC Morphology Polychromasia Poikilocytosis Basophilic Stippling Anisocytosis Microcytosis Macrocytosis Spherocytes Siderocytes Sickle Cells Target Cells Tear Drop Cells Ovalocytes Stomatocytes Helmet Cells [place] Bodies [place] Rings [place] Cells Acanthocytes (Spur) Rouleaux Fragmented RBCs Schistocytes Sodium Potassium Chloride Carbon Dioxide Anion Gap BUN Creatinine Creat Clearance w eGFR POC Glucometer [phone] Random Glucose Lactic Acid Calcium Phosphorus Magnesium Total Bilirubin AST ALT Alkaline Phosphatase Total Protein Albumin Lipase Serum , Qual Urine Color Urine Appearance Urine pH Ur Specific [place] Urine Protein Urine Glucose (UA) Urine Ketones Urine Blood Urine Nitrite Urine Bilirubin Urine Urobilinogen Ur Leukocyte Esterase Urine RBC Urine WBC Ur Epithelial Cells Alcohol, Quantitative Acetone, Qual 01/14/17 01/14/17 01/14/17 08:40 08:40 08:40 WBC 35.1 H* RBC 3.94 Hgb 12.0 Hct 35.6 MCV 90.4 MCH 30.5 MCHC 33.8 RDW 13.6 Plt Count 449 H MPV 7.2 L Total Counted Neutrophils % Neutrophils % (Manual) Band Neutrophils % Lymphocytes % Lymphocytes % (Manual) Monocytes % Monocytes % (Manual) Eosinophils % (Manual) Basophils % (Manual) Myelocytes % (Man) Promyelocytes % (Man) Blast Cells % (Manual) Nucleated RBC % Metamyelocytes Hypersegmented Neuts Plasma Cells Smudge Cells Other Cell Type Hypochromia Toxic Granulation Dohle Bodies George Rods Platelet Estimate Platelet Comment RBC Morphology Polychromasia Poikilocytosis Basophilic Stippling Anisocytosis Microcytosis Macrocytosis Spherocytes Siderocytes Sickle Cells Target Cells Tear Drop Cells Ovalocytes Stomatocytes Helmet Cells [place] Bodies [place] Rings [place] Cells Acanthocytes (Spur) Rouleaux Fragmented RBCs Schistocytes Sodium Potassium Chloride Carbon Dioxide Anion Gap BUN Creatinine Creat Clearance w eGFR POC Glucometer Random Glucose Lactic Acid Calcium Phosphorus 1.8 L D Magnesium 1.9 Total Bilirubin AST ALT Alkaline Phosphatase Total Protein Albumin Lipase Serum , Qual Urine Color Urine Appearance Urine pH Ur Specific [place] Urine Protein Urine Glucose (UA) Urine Ketones Urine Blood Urine Nitrite Urine Bilirubin Urine Urobilinogen Ur Leukocyte Esterase Urine RBC Urine WBC Ur Epithelial Cells Alcohol, Quantitative < 5.0 Acetone, Qual 01/14/17 01/14/17 01/14/17 08:40 09:55 11:08 WBC RBC Hgb Hct MCV MCH MCHC RDW Plt Count MPV Total Counted Neutrophils % Neutrophils % (Manual) Band Neutrophils % Lymphocytes % Lymphocytes % (Manual) Monocytes % Monocytes % (Manual) Eosinophils % (Manual) Basophils % (Manual) Myelocytes % (Man) Promyelocytes % (Man) Blast Cells % (Manual) Nucleated RBC % Metamyelocytes Hypersegmented Neuts Plasma Cells Smudge Cells Other Cell Type Hypochromia Toxic Granulation Dohle Bodies George Rods Platelet Estimate Platelet Comment RBC Morphology Polychromasia Poikilocytosis Basophilic Stippling Anisocytosis Microcytosis Macrocytosis Spherocytes Siderocytes Sickle Cells Target Cells Tear Drop Cells Ovalocytes Stomatocytes Helmet Cells [place] Bodies [place] Rings [place] Cells Acanthocytes (Spur) Rouleaux Fragmented RBCs Schistocytes Sodium Potassium Chloride Carbon Dioxide Anion Gap BUN Creatinine Creat Clearance w eGFR POC Glucometer [phone] Random Glucose Lactic Acid 1.2 Calcium Phosphorus Magnesium Total Bilirubin AST ALT Alkaline Phosphatase Total Protein Albumin Lipase Serum , Qual Urine Color Urine Appearance Urine pH Ur Specific [place] Urine Protein Urine Glucose (UA) Urine Ketones Urine Blood Urine Nitrite Urine Bilirubin Urine Urobilinogen Ur Leukocyte Esterase Urine RBC Urine WBC Ur Epithelial Cells Alcohol, Quantitative Acetone, Qual 01/14/17 01/14/17 12:10 12:24 WBC RBC Hgb Hct MCV MCH MCHC RDW Plt Count MPV Total Counted Neutrophils % Neutrophils % (Manual) Band Neutrophils % Lymphocytes % Lymphocytes % (Manual) Monocytes % Monocytes % (Manual) Eosinophils % (Manual) Basophils % (Manual) Myelocytes % (Man) Promyelocytes % (Man) Blast Cells % (Manual) Nucleated RBC % Metamyelocytes Hypersegmented Neuts Plasma Cells Smudge Cells Other Cell Type Hypochromia Toxic Granulation Dohle Bodies George Rods Platelet Estimate Platelet Comment RBC Morphology Polychromasia Poikilocytosis Basophilic Stippling Anisocytosis Microcytosis Macrocytosis Spherocytes Siderocytes Sickle Cells Target Cells Tear Drop Cells Ovalocytes Stomatocytes Helmet Cells [place] Bodies [place] Rings [place] Cells Acanthocytes (Spur) Rouleaux Fragmented RBCs Schistocytes Sodium 133 L Potassium 4.0 Chloride 102 Carbon Dioxide 22 D Anion Gap 9 BUN 19 H D Creatinine 0.8 D Creat Clearance w eGFR POC Glucometer [phone] Random Glucose 86 D Lactic Acid Calcium 7.5 L Phosphorus Magnesium Total Bilirubin AST ALT Alkaline Phosphatase Total Protein Albumin Lipase Serum , Qual Urine Color Urine Appearance Urine pH Ur Specific [place] Urine Protein Urine Glucose (UA) Urine Ketones Urine Blood Urine Nitrite Urine Bilirubin Urine Urobilinogen Ur Leukocyte Esterase Urine RBC Urine WBC Ur Epithelial Cells Alcohol, Quantitative Acetone, Qual Active Medications Generic Name Dose Route Start Last Admin Trade Name Toñoq PRN Reason Stop Dose Admin Acetaminophen 1,000 mg 01/14/17 01:42 01/14/17 01:44 Ofirmev Injection - IVPB 1,000 mg Q6H PRN Administration FEVER OR PAIN Chlorhexidine Gluconate 1 applic 01/14/17 22:00 Hibiclens For Decolonization - TP HS KARLENE Heparin Sodium (Porcine) 5,000 unit 01/14/17 06:00 01/14/17 06:36 Heparin - SQ 5,000 unit TID KARLENE Administration Dextrose/Sodium Chloride 20 meq in 1,000 mls @ 125 mls/hr 01/14/17 10:30 Dextrose 5%-Normal Saline+20 Meq Kcl - IV ASDIR KARLENE Insulin Detemir 30 units 01/14/17 13:15 Levemir Vial SQ BID KARLENE Mupirocin 1 applic 01/14/17 10:00 Bactroban Ointment (For Decolonization) - NS 01/19/17 09:59 BID KARLENE ASSESSMENT/PLAN: 26 year old female with a past medical history of DM type I, DKA, diabetic gastroparesis, presented with ams, flulike symptoms, found to be in DKA, #DKA; -IVF -insulin drip -electrolytes replacement -las bmp ; anion gap closed -will start on 30 levemir bid -insulin ss -bgm achs -start diabetic diet -cont fluids for now ; d/c once patient has adequate po intake ID: -sepsis work up -hx of leukocytosis; sec to leukamoid reation? VTE prophylaxis: heparin Disposition: stable to transfer to floors Visit type - Emergency Visit Emergency Visit: Yes ED Registration Date: 01/14/17 Care time: The patient presented to the Emergency Department on the above date and was hospitalized for further evaluation of their emergent condition. - New Patient This patient is new to me today: Yes Date on this admission: 01/14/17 - Critical Care Critical Care patient: Yes Total Critical Care Time (in minutes): 35 Critical Care Statement: The care of this patient involved high complexity decision making to prevent further life threatening deterioration of the patient 's condition and/or to evaluate & treat vital organ system(s) failure or risk of failure.
[2017-01-14] MEDS ORDERED: NAPH,MB-DB/K PH,MBDB POWDER PACKET PO ONE (13:33)
--- NOTE | 2017-01-14 13:55 | PN ---
Physical Exam: SUBJECTIVE: Patient seen and examined. Pt c/o feeling tired. Pt denies fever, chills, abdominal pain, sob, headache. Pt reports being a little hungry and not yet having a bowel movement today. OBJECTIVE: Vital Signs Period Temp Pulse Resp BP Sys/Plata Pulse Ox Last 24 Hr 97.2 F-98.8 F 117-135 17-28 125-144/71-95 99-100 GENERAL: The patient is awake, alert, and fully oriented, in no acute distress. HEAD: Normal with no signs of trauma. EYES: Extraocular movements intact, sclera anicteric, conjunctiva clear. No ptosis. NECK: Trachea midline, supple. LUNGS: Breath sounds equal, clear to auscultation bilaterally, no wheezes, no crackles, no accessory muscle use. HEART: Regular rate and rhythm, S1, S2 without murmur, rub or gallop. ABDOMEN: Soft, nontender, nondistended, no guarding, no rebound. EXTREMITIES: Warm, well-perfused, no edema. SKIN: Warm, dry, normal turgor, no rashes or lesions noted Laboratory Results - last 24 hr 01/13/17 01/13/17 01/14/17 21:50 Unknown 01:31 WBC RBC Hgb Hct MCV MCH MCHC RDW Plt Count MPV Total Counted Neutrophils % Neutrophils % (Manual) Band Neutrophils % Lymphocytes % Lymphocytes % (Manual) Monocytes % Monocytes % (Manual) Eosinophils % (Manual) Basophils % (Manual) Myelocytes % (Man) Promyelocytes % (Man) Blast Cells % (Manual) Nucleated RBC % Metamyelocytes Hypersegmented Neuts Plasma Cells Smudge Cells Other Cell Type Hypochromia Toxic Granulation Dohle Bodies George Rods Platelet Estimate Platelet Comment RBC Morphology Polychromasia Poikilocytosis Basophilic Stippling Anisocytosis Microcytosis Macrocytosis Spherocytes Siderocytes Sickle Cells Target Cells Tear Drop Cells Ovalocytes Stomatocytes Helmet Cells [place] Bodies [place] Rings [place] Cells Acanthocytes (Spur) Rouleaux Fragmented RBCs Schistocytes Sodium 123 L* D 119 L* Potassium 5.6 H D 6.6 H* Chloride 86 L D 83 L Carbon Dioxide 9 L D 6 L D Anion Gap 28 H 30 H BUN 29 H D 34 H Creatinine 1.1 H D 1.4 H D Creat Clearance w eGFR > 60 POC Glucometer Random Glucose 627 H* D 660 H* Lactic Acid Calcium 8.5 7.7 L Phosphorus Magnesium Total Bilirubin 0.7 D AST 12 L D ALT 14 Alkaline Phosphatase 169 H D Total Protein 7.4 Albumin 3.6 Lipase 42 L Serum , Qual Urine Color Urine Appearance Urine pH Ur Specific [place] Urine Protein Urine Glucose (UA) Urine Ketones Urine Blood Urine Nitrite Urine Bilirubin Urine Urobilinogen Ur Leukocyte Esterase Urine RBC Urine WBC Ur Epithelial Cells Alcohol, Quantitative Acetone, Qual 01/14/17 01/14/17 01/14/17 02:00 04:27 06:00 WBC RBC Hgb Hct MCV MCH MCHC RDW Plt Count MPV Total Counted Neutrophils % Neutrophils % (Manual) Band Neutrophils % Lymphocytes % Lymphocytes % (Manual) Monocytes % Monocytes % (Manual) Eosinophils % (Manual) Basophils % (Manual) Myelocytes % (Man) Promyelocytes % (Man) Blast Cells % (Manual) Nucleated RBC % Metamyelocytes Hypersegmented Neuts Plasma Cells Smudge Cells Other Cell Type Hypochromia Toxic Granulation Dohle Bodies George Rods Platelet Estimate Platelet Comment RBC Morphology Polychromasia Poikilocytosis Basophilic Stippling Anisocytosis Microcytosis Macrocytosis Spherocytes Siderocytes Sickle Cells Target Cells Tear Drop Cells Ovalocytes Stomatocytes Helmet Cells [place] Bodies [place] Rings Elly Cells Acanthocytes (Spur) Rouleaux Fragmented RBCs Schistocytes Sodium Cancelled 127 L Potassium Cancelled 4.5 D Chloride Cancelled 94 L D Carbon Dioxide Cancelled 13 L D Anion Gap Cancelled 20 H BUN Cancelled 31 H Creatinine Cancelled 1.2 H Creat Clearance w eGFR Cancelled 54.30 POC Glucometer > 400 Random Glucose Cancelled 268 H D Lactic Acid Calcium Cancelled 7.9 L Phosphorus Magnesium Total Bilirubin Cancelled 0.7 AST Cancelled 4 L D ALT Cancelled 12 Alkaline Phosphatase Cancelled 151 H Total Protein Cancelled 6.8 Albumin Cancelled 3.3 L Lipase Serum , Qual Urine Color Urine Appearance Urine pH Ur Specific [place] Urine Protein Urine Glucose (UA) Urine Ketones Urine Blood Urine Nitrite Urine Bilirubin Urine Urobilinogen Ur Leukocyte Esterase Urine RBC Urine WBC Ur Epithelial Cells Alcohol, Quantitative Acetone, Qual 01/14/17 01/14/17 01/14/17 06:00 06:14 07:56 WBC 41.7 H* RBC 3.86 Hgb 12.1 D Hct 35.1 MCV 91.0 MCH 31.4 MCHC 34.5 RDW 13.6 Plt Count 436 H MPV 7.8 Total Counted Neutrophils % Neutrophils % (Manual) Band Neutrophils % Lymphocytes % Lymphocytes % (Manual) Monocytes % Monocytes % (Manual) Eosinophils % (Manual) Basophils % (Manual) Myelocytes % (Man) Promyelocytes % (Man) Blast Cells % (Manual) Nucleated RBC % Metamyelocytes Hypersegmented Neuts Plasma Cells Smudge Cells Other Cell Type Hypochromia Toxic Granulation Dohle Bodies George Rods Platelet Estimate Platelet Comment RBC Morphology Polychromasia Poikilocytosis Basophilic Stippling Anisocytosis Microcytosis Macrocytosis Spherocytes Siderocytes Sickle Cells Target Cells Tear Drop Cells Ovalocytes Stomatocytes Helmet Cells [place] Bodies [place] Rings Elly Cells Acanthocytes (Spur) Rouleaux Fragmented RBCs Schistocytes Sodium Potassium Chloride Carbon Dioxide Anion Gap BUN Creatinine Creat Clearance w eGFR POC Glucometer [phone] Random Glucose Lactic Acid Calcium Phosphorus Magnesium Total Bilirubin AST ALT Alkaline Phosphatase Total Protein Albumin Lipase Serum , Qual Urine Color Urine Appearance Urine pH Ur Specific [place] Urine Protein Urine Glucose (UA) Urine Ketones Urine Blood Urine Nitrite Urine Bilirubin Urine Urobilinogen Ur Leukocyte Esterase Urine RBC Urine WBC Ur Epithelial Cells Alcohol, Quantitative Acetone, Qual 01/14/17 01/14/17 01/14/17 08:40 08:40 08:40 WBC 35.1 H* RBC 3.94 Hgb 12.0 Hct 35.6 MCV 90.4 MCH 30.5 MCHC 33.8 RDW 13.6 Plt Count 449 H MPV 7.2 L Total Counted Neutrophils % Neutrophils % (Manual) Band Neutrophils % Lymphocytes % Lymphocytes % (Manual) Monocytes % Monocytes % (Manual) Eosinophils % (Manual) Basophils % (Manual) Myelocytes % (Man) Promyelocytes % (Man) Blast Cells % (Manual) Nucleated RBC % Metamyelocytes Hypersegmented Neuts Plasma Cells Smudge Cells Other Cell Type Hypochromia Toxic Granulation Dohle Bodies George Rods Platelet Estimate Platelet Comment RBC Morphology Polychromasia Poikilocytosis Basophilic Stippling Anisocytosis Microcytosis Macrocytosis Spherocytes Siderocytes Sickle Cells Target Cells Tear Drop Cells Ovalocytes Stomatocytes Helmet Cells [place] Bodies [place] Rings Elly Cells Acanthocytes (Spur) Rouleaux Fragmented RBCs Schistocytes Sodium Potassium Chloride Carbon Dioxide Anion Gap BUN Creatinine Creat Clearance w eGFR POC Glucometer Random Glucose Lactic Acid Calcium Phosphorus 1.8 L D Magnesium 1.9 Total Bilirubin AST ALT Alkaline Phosphatase Total Protein Albumin Lipase Serum , Qual Urine Color Urine Appearance Urine pH Ur Specific [place] Urine Protein Urine Glucose (UA) Urine Ketones Urine Blood Urine Nitrite Urine Bilirubin Urine Urobilinogen Ur Leukocyte Esterase Urine RBC Urine WBC Ur Epithelial Cells Alcohol, Quantitative < 5.0 Acetone, Qual 01/14/17 01/14/17 01/14/17 08:40 09:55 11:08 WBC RBC Hgb Hct MCV MCH MCHC RDW Plt Count MPV Total Counted Neutrophils % Neutrophils % (Manual) Band Neutrophils % Lymphocytes % Lymphocytes % (Manual) Monocytes % Monocytes % (Manual) Eosinophils % (Manual) Basophils % (Manual) Myelocytes % (Man) Promyelocytes % (Man) Blast Cells % (Manual) Nucleated RBC % Metamyelocytes Hypersegmented Neuts Plasma Cells Smudge Cells Other Cell Type Hypochromia Toxic Granulation Dohle Bodies George Rods Platelet Estimate Platelet Comment RBC Morphology Polychromasia Poikilocytosis Basophilic Stippling Anisocytosis Microcytosis Macrocytosis Spherocytes Siderocytes Sickle Cells Target Cells Tear Drop Cells Ovalocytes Stomatocytes Helmet Cells [place] Bodies [place] Cells Acanthocytes (Spur) Rouleaux Fragmented RBCs Schistocytes Sodium Potassium Chloride Carbon Dioxide Anion Gap BUN Creatinine Creat Clearance w eGFR POC Glucometer [phone] Random Glucose Lactic Acid 1.2 Calcium Phosphorus Magnesium Total Bilirubin AST ALT Alkaline Phosphatase Total Protein Albumin Lipase Serum , Qual Urine Color Urine Appearance Urine pH Ur Specific [place] Urine Protein Urine Glucose (UA) Urine Ketones Urine Blood Urine Nitrite Urine Bilirubin Urine Urobilinogen Ur Leukocyte Esterase Urine RBC Urine WBC Ur Epithelial Cells Alcohol, Quantitative Acetone, Qual 01/14/17 01/14/17 01/14/17 12:10 12:24 13:16 WBC RBC Hgb Hct MCV MCH MCHC RDW Plt Count MPV Total Counted Neutrophils % Neutrophils % (Manual) Band Neutrophils % Lymphocytes % Lymphocytes % (Manual) Monocytes % Monocytes % (Manual) Eosinophils % (Manual) Basophils % (Manual) Myelocytes % (Man) Promyelocytes % (Man) Blast Cells % (Manual) Nucleated RBC % Metamyelocytes Hypersegmented Neuts Plasma Cells Smudge Cells Other Cell Type Hypochromia Toxic Granulation Dohle Bodies George Rods Platelet Estimate Platelet Comment RBC Morphology Polychromasia Poikilocytosis Basophilic Stippling Anisocytosis Microcytosis Macrocytosis Spherocytes Siderocytes Sickle Cells Target Cells Tear Drop Cells Ovalocytes Stomatocytes Helmet Cells [place] Bodies [place] Rings Elly Cells Acanthocytes (Spur) Rouleaux Fragmented RBCs Schistocytes Sodium 133 L Potassium 4.0 Chloride 102 Carbon Dioxide 22 D Anion Gap 9 BUN 19 H D Creatinine 0.8 D Creat Clearance w eGFR POC Glucometer [phone] 83.35484 Random Glucose 86 D Lactic Acid Calcium 7.5 L Phosphorus Magnesium Total Bilirubin AST ALT Alkaline Phosphatase Total Protein Albumin Lipase Serum , Qual Urine Color Urine Appearance Urine pH Ur Specific [place] Urine Protein Urine Glucose (UA) Urine Ketones Urine Blood Urine Nitrite Urine Bilirubin Urine Urobilinogen Ur Leukocyte Esterase Urine RBC Urine WBC Ur Epithelial Cells Alcohol, Quantitative Acetone, Qual Active Medications Generic Name Dose Route Start Last Admin Trade Name Freq PRN Reason Stop Dose Admin Acetaminophen 1,000 mg 01/14/17 01:42 01/14/17 01:44 Ofirmev Injection - IVPB 1,000 mg Q6H PRN Administration FEVER OR PAIN Chlorhexidine Gluconate 1 applic 01/14/17 22:00 Hibiclens For Decolonization - TP HS [facility] Heparin Sodium (Porcine) 5,000 unit 01/14/17 06:00 01/14/17 06:36 Heparin - SQ 5,000 unit TID [facility] Administration Dextrose/Sodium Chloride 20 meq in 1,000 mls @ 125 mls/hr 01/14/17 10:30 Dextrose 5%-Normal Saline+20 Meq Kcl - IV ASDIR [facility] Insulin Aspart 1 vial 01/14/17 16:30 Novolog Vial Sliding Scale - SQ ACHS [facility] Protocol Insulin Detemir 30 units 01/14/17 22:00 Levemir Vial SQ BID@0700,2200 [facility] Mupirocin 1 applic 01/14/17 10:00 Bactroban Ointment (For Decolonization) - NS 01/19/17 09:59 BID [facility] IMAGIN01/13/19 CXR -> no acute pathology ASSESSMENT/PLAN: 26yo F with PMH of IDDM, gastroparesis, recurrent DKA, pancreatitis, presents c/ o abdominal pain, nausea and vomiting, admitted to ICU for DKA. # DKA 2/2 medication noncompliance - most recent poc 83 - insulin drip D/Alexander -> Novolog SSI and Levemir 30U SQ BID added - most recent K+ 4.0 (at noon) - D5-NS with 20meq/L KCl @ 125 ml/hr - anion gap closed - diabetic diet #leukocytosis - probably reactive from DKA, no source of infection identified #hyponatremia - improving - continue to monitor # hypophosphatemia - repleted with 1 packet of NeutraPhos - continue to monitor #OLEG - resolved - IV fluid hydration # FEN - Fluids: D5-NS with 20meq/L KCl @ 125 ml/hr - Electrolytes: hypocalcemia and hypophosphatemia noted, continue to monitor - Nutrition: diabetic diet #DVT ppx - SCDs - Heparin 5,000U SQ TID Visit type - Emergency Visit Emergency Visit: Yes ED Registration Date: 01/14/17 Care time: The patient presented to the Emergency Department on the above date and was hospitalized for further evaluation of their emergent condition. - New Patient This patient is new to me today: Yes Date on this admission: 01/14/17 - Critical Care Critical Care patient: Yes Total Critical Care Time (in minutes): 35 Critical Care Statement: The care of this patient involved high complexity decision making to prevent further life threatening deterioration of the patient 's condition and/or to evaluate & treat vital organ system(s) failure or risk of failure.
[2017-01-14] MEDS ORDERED: INSULIN DETEMIR 100 UNITS/ML MDV SQ ONE (14:59)
--- NOTE | 2017-01-14 15:25 | PN ---
Teaching Attending Note Name of Resident: Cami Jaffe ATTENDING PHYSICIAN STATEMENT I saw and evaluated the patient. I reviewed the resident's note and discussed the case with the resident. I agree with the resident's findings and plan as documented. SUBJECTIVE: Patient is feeling better today. No fever or chills, no shortness of breath. No urinary symptoms, no nausea or vomiting at this time. OBJECTIVE: Vital Signs Temperature 98.6 F 01/14/17 14:00 Pulse Rate 105 H 01/14/17 14:00 Respiratory Rate 20 01/14/17 14:00 Blood Pressure 126/82 01/14/17 14:00 O2 Sat by Pulse Oximetry (%) 99 01/14/17 09:00 CBCD WBC 35.1 K/mm3 (4.0-10.0) H* 01/14/17 08:40 RBC 3.94 M/mm3 (3.60-5.2) 01/14/17 08:40 Hgb 12.0 GM/dL (10.7-15.3) 01/14/17 08:40 Hct 35.6 % (32.4-45.2) 01/14/17 08:40 MCV 90.4 fl (80-96) 01/14/17 08:40 MCHC 33.8 g/dl (32.0-36.0) 01/14/17 08:40 RDW 13.6 % (11.6-15.6) 01/14/17 08:40 Plt Count 449 K/MM3 (134-434) H 01/14/17 08:40 MPV 7.2 fl (7.5-11.1) L 01/14/17 08:40 CMP Sodium 133 mmol/L (136-145) L 01/14/17 12:10 Potassium 4.0 mmol/L (3.5-5.1) 01/14/17 12:10 Chloride 102 mmol/L (98-107) 01/14/17 12:10 Carbon Dioxide 22 mmol/L (21-32) D 01/14/17 12:10 Anion Gap 9 (8-16) 01/14/17 12:10 BUN 19 mg/dL (7-18) H D 01/14/17 12:10 Creatinine 0.8 mg/dL (0.55-1.02) D 01/14/17 12:10 Creat Clearance w eGFR 54.30 (>60) 01/14/17 06:00 Random Glucose 86 mg/dL (74-106) D 01/14/17 12:10 Calcium 7.5 mg/dL (8.5-10.1) L 01/14/17 12:10 Total Bilirubin 0.7 mg/dL (0.2-1.0) 01/14/17 06:00 AST 4 U/L (15-37) L D 01/14/17 06:00 ALT 12 U/L (12-78) 01/14/17 06:00 Alkaline Phosphatase 151 U/L (45-117) H 01/14/17 06:00 Total Protein 6.8 g/dl (6.4-8.2) 01/14/17 06:00 Albumin 3.3 g/dl (3.4-5.0) L 01/14/17 06:00 Current Medications Generic Name Dose Route Start Last Admin Trade Name Freq PRN Reason Stop Dose Admin Acetaminophen 1,000 mg 01/14/17 01:42 01/14/17 01:44 Ofirmev Injection - IVPB 1,000 mg Q6H PRN Administration FEVER OR PAIN Chlorhexidine Gluconate 1 applic 01/14/17 22:00 Hibiclens For Decolonization - TP HS [facility] Heparin Sodium (Porcine) 5,000 unit 01/14/17 06:00 01/14/17 14:48 Heparin - SQ 5,000 unit TID [facility] Administration Dextrose/Sodium Chloride 20 meq in 1,000 mls @ 125 mls/hr 01/14/17 10:30 11/22 10:30 Dextrose 5%-Normal Saline+20 Meq Kcl - IV 125 mls/hr ASDIR [facility] Administration Insulin Aspart 1 vial 01/14/17 16:30 Novolog Vial Sliding Scale - SQ ACHS [facility] Protocol Insulin Detemir 30 units 01/14/17 22:00 01/14/17 15:01 Levemir Vial SQ 30 units BID@0700,2200 [facility] Administration Mupirocin 1 applic 01/14/17 10:00 Bactroban Ointment (For Decolonization) - NS 01/19/17 09:59 BID [facility] Home Medications Medication Instructions Recorded Insulin Lispro [Humalog] 0 unit SQ ASDIR 07/18/13 Amitriptyline HCl [Elavil -] 3 tab PO DAILY #0 06/27/15 Acetaminophen [Tylenol] 650 mg PO Q4H PRN #20 tablet 01/17/16 Metoclopramide HCl [Reglan] 10 mg PO Q6H PRN #15 tablet 01/17/16 Ranitidine HCl [Zantac] 150 mg PO BID PRN #20 tablet 01/17/16 Insulin Glargine,Hum.rec.anlog 60 unit SQ HS 12/08/16 [Basaglar Kwikpen U-100] PE: Lying in bed comfortably, with no acute distress. CHEST: CTA bl HEART: S1S2 positive abdomen: Soft, NT, NR IMAGIN01/13/19 CXR -> no acute pathology ASSESSMENT AND PLAN: 26yo F with PMHx of IDDM, gastroparesis, recurrent DKA, pancreatitis, presents c /o abdominal pain, nausea and vomiting, admitted to ICU for DKA. # Acute DKA most likely noncompliance with her meds. as per patient, felt sick and was not able to keep anything down. On Insulin drip continue, D51/2 NS at 200cc/hr #Acute leukocytosis; will monitor r/o sepsis;Bld cx, Urine Cx pending, no source of infection identified at this time #Acute Psuedohyponatremia , continue IVF d51/2W with potassium # Acute hypophosphatemia; phos 1.8, will repeat in am.the level ,given Neutrophos #OLEG resolved , continue IV fluid #DVT ppx: SCDs ; Heparin 5,000U SQ TID critical care time 35min
[2017-01-14] MEDS ORDERED: FLU VACCINE QUAD 60 MCG/0.5 ML (MDV 17-18) IM ONE (15:45)
[2017-01-14] MEDS: SODIUM CHLORIDE 1,000 ML IV SCH (16:28)
[2017-01-14] MEDS ORDERED: INSULIN SLIDING SCALE (NOVOLOG) 1 VIAL SQ SCH (16:30)
--- NOTE | 2017-01-14 16:32 | EKG ---
Test Reason : Blood Pressure : / mmHG Vent. Rate : 133 BPM Atrial Rate : 133 BPM P-R Int : 136 ms QRS Dur : 062 ms QT Int : 298 ms P-R-T Axes : 043 010 020 degrees QTc Int : 443 ms SINUS TACHYCARDIA CANNOT RULE OUT ANTERIOR INFARCT (CITED ON OR BEFORE 05-NOV-2016) ABNORMAL ECG WHEN COMPARED WITH ECG OF 05-NOV-2016 15:42, NO SIGNIFICANT CHANGE WAS FOUND Confirmed by ISMAEL BROCK, JEFF ([id number]) on 01/14/2017 4:31:56 PM Referred By: Confirmed By:JEFF GUEVARA MD
[2017-01-14 16:45] LABS: ANION GAP 15 (8-16); CALCIUM 7.3 mg/dL (8.5-10.1); CO2 17 mmol/L (21-32); CREATININE 0.7 mg/dL (0.55-1.02); GLUCOSE,RANDOM 187 mg/dL (74-106)
--- NOTE | 2017-01-14 16:58 | PN ---
Progress Note (short form) - Note Progress Note: ID Consult dictated DKA Leukocytosis likely leukemoid rxn Pending sepsis work up empiric ceftriaxone
[2017-01-14] MEDS ORDERED: PIPERACILLIN/TAZOB 3.375 GM 50 ML IVPB SCH (18:00)
[2017-01-14 19:57] LABS: ANION GAP 10 (8-16); CALCIUM 7.3 mg/dL (8.5-10.1); CO2 20 mmol/L (21-32); CREATININE 0.7 mg/dL (0.55-1.02); GLUCOSE,RANDOM 184 mg/dL (74-106)
[2017-01-14] MEDS ORDERED: INSULIN (NOVOLOG) ASPART 100 UNITS/ML 10ML VIAL ONE (20:06)
[2017-01-14] MEDS ORDERED: ONDANSETRON 4 MG/2 ML VIAL IVPUSH PRN (20:46)
[2017-01-14] MEDS: INSULIN SLIDING SCALE (NOVOLOG) 1 VIAL SQ SCH (20:59)
[2017-01-14] MEDS ORDERED: INSULIN DETEMIR 100 UNITS/ML MDV SQ SCH (22:00)
[2017-01-14] MEDS ORDERED: CHLORHEXIDINE GLUCONATE 4% CLEANSER FOR DECOLONIZATION TP SCH (22:00)
[2017-01-14] MEDS: CEFTRIAXONE 2 GM in DEXTROSE 5%-WATER - 100 ML IVPB SCH (22:15)
[2017-01-14 23:00] LABS: ANION GAP 12 (8-16); CALCIUM 8.1 mg/dL (8.5-10.1); CO2 20 mmol/L (21-32); CREATININE 0.5 mg/dL (0.55-1.02); GLUCOSE,RANDOM 121 mg/dL (74-106)
[2017-01-15] MEDS: SODIUM CHLORIDE 1,000 ML IV SCH ×2 (02:34→15:40)
[2017-01-15] MEDS: HEPARIN NA (PORCINE) 5,000 UNITS/ML 1ML VIAL SQ SCH ×2 (06:06→14:18)
[2017-01-15] MEDS: INSULIN SLIDING SCALE (NOVOLOG) 1 VIAL SQ SCH ×3 (06:07→17:46)
[2017-01-15] MEDS: INSULIN DETEMIR 100 UNITS/ML MDV SQ SCH ×2 (06:43→17:46)
--- NOTE | 2017-01-15 07:19 | CONS ---
DATE OF CONSULTATION: DATE OF DICTATION: 01/14/2017 HISTORY OF PRESENT ILLNESS: The patient is a 26-year-old insulin-dependent diabetic who is evaluated for leukocytosis. She was admitted to the hospital on January 13, 2017, with worsening abdominal pain, nausea, vomiting, and anorexia. She had apparently been noncompliant with her insulin regimen. She was found to have a markedly elevated glucose. She was admitted to the hospital with a diagnosis of diabetic ketoacidosis. Her course was complicated by a markedly elevated white blood cell count. Cultures were obtained. She was empirically treated with Zosyn and vancomycin. She reports a recent upper respiratory tract infection with sinusitis, rhinorrhea, and sore throat. She denies any chest pain or shortness of breath. No complaints of abdominal pain or diarrhea, dysuria, or hematuria. No infected skin wounds or infected diabetic foot ulcers. PAST MEDICAL HISTORY: Positive for diabetes mellitus with a history of noncompliance and diabetic ketoacidosis. ALLERGIES: No known allergies. MEDICATIONS: See medication list. LABORATORY DATA: White count on admission 42,000, presently 35, hematocrit 35.6, platelet count 449. BUN 14, creatinine 0.7, sodium 129. Urinalysis: White cells 2 to 5. Chest x-ray: Negative. Blood cultures and urine cultures pending. PHYSICAL EXAMINATION:General: She is awake. She is in no acute distress. Vital Signs: Temperature 98.9, blood pressure 120/69, pulse 99, regular, respirations 18 per minute. HEENT: Sclerae are anicteric. Throat: No injection or exudate. Neck: Supple. No palpable nodes. Cardiac: Heart sounds S1, S2. Lungs: Clear. Abdomen: Soft. No tenderness elicited. No suprapubic or flank pain. Extremities: Negative for edema. IMPRESSION: 1. Diabetic ketoacidosis. 2. Leukocytosis, likely leukemoid reaction secondary to diabetic ketoacidosis. RECOMMENDATIONS: Await culture results. Pending sepsis workup, empiric antibiotic coverage with ceftriaxone 2 g IV piggyback daily. Followup CBC. Will follow. Thank you for the kind referral. TERRY MCCLAIN M.D. [id number]
[2017-01-15 08:13] LABS: BASOPHIL 0.5 % (0-2.0); EOSINOPHIL 0.1 % (0-4.5); MCH 30.6 pg (25.7-33.7); MCHC 34.1 g/dl (32.0-36.0); MEAN CELL VOLUME 89.8 fl (80-96); MEAN PLT VOLUME 7.1 fl (7.5-11.1); NEUTROPHILS 84.5 % (42.8-82.8); PLATELET COUNT 375 K/MM3 (134-434); RDW 13.9 % (11.6-15.6); WHITE BLOOD COUNT 22.2 K/mm3 (4.0-10.0)
[2017-01-15 08:55] LABS: ALBUMIN 2.5 g/dl (3.4-5.0); ALK PHOS 118 U/L (45-117); ANION GAP 10 (8-16); BILIRUBIN,TOTAL 0.3 mg/dL (0.2-1.0); CALCIUM 7.8 mg/dL (8.5-10.1); CO2 22 mmol/L (21-32); CREATININE 0.5 mg/dL (0.55-1.02); GLUCOSE,RANDOM 187 mg/dL (74-106); PHOSPHOROUS 1.6 mg/dL (2.5-4.9); SGOT/AST 6 U/L (15-37); SGPT/ALT 9 U/L (12-78); TOT PROT 5.6 g/dl (6.4-8.2)
[2017-01-15] MEDS: CEFTRIAXONE 2 GM in DEXTROSE 5%-WATER - 100 ML IVPB SCH (09:24)
--- NOTE | 2017-01-15 11:03 | PN ---
Physical Exam: SUBJECTIVE: Patient seen and examined. Pt denies fever, chills. No events overnight. OBJECTIVE: Vital Signs Period Temp Pulse Resp BP Sys/Plata Pulse Ox Last 24 Hr 98.1 F-98.9 F 99-108 18-20 120-153/69-98 98-100 GENERAL: The patient is awake, alert, and fully oriented, in no acute distress. HEAD: Normal with no signs of trauma. LUNGS: Breath sounds equal, clear to auscultation bilaterally, no wheezes, no crackles, no accessory muscle use. HEART: Regular rate and rhythm, +S1/S2. ABDOMEN: Soft, nontender, nondistended, no guarding. EXTREMITIES: Warm, well-perfused, no edema. SKIN: Warm, dry, normal turgor, no rashes or lesions noted Laboratory Results - last 24 hr 01/14/17 01/14/17 01/14/17 06:00 11:08 12:10 WBC RBC Hgb Hct MCV MCH MCHC RDW Plt Count MPV Neutrophils % Lymphocytes % Monocytes % Eosinophils % Basophils % Sodium 127 L 133 L Potassium 4.5 D 4.0 Chloride 94 L D 102 Carbon Dioxide 13 L D 22 D Anion Gap 20 H 9 BUN 31 H 19 H D Creatinine 1.2 H 0.8 D Creat Clearance w eGFR 54.30 POC Glucometer [phone] Random Glucose 268 H D 86 D Calcium 7.9 L 7.5 L Phosphorus Magnesium 2.0 Total Bilirubin 0.7 AST 4 L D ALT 12 Alkaline Phosphatase 151 H Total Protein 6.8 Albumin 3.3 L 01/14/17 01/14/17 01/14/17 12:10 12:24 13:16 WBC RBC Hgb Hct MCV MCH MCHC RDW Plt Count MPV Neutrophils % Lymphocytes % Monocytes % Eosinophils % Basophils % Sodium Potassium Chloride Carbon Dioxide Anion Gap BUN Creatinine Creat Clearance w eGFR POC Glucometer 83.44749 83.15126 Random Glucose Calcium Phosphorus Magnesium Cancelled Total Bilirubin AST ALT Alkaline Phosphatase Total Protein Albumin 01/14/17 01/14/17 01/14/17 15:14 15:30 15:30 WBC RBC Hgb Hct MCV MCH MCHC RDW Plt Count MPV Neutrophils % Lymphocytes % Monocytes % Eosinophils % Basophils % Sodium 129 L Potassium 4.3 Chloride 97 L Carbon Dioxide 17 L D Anion Gap 15 BUN 14 D Creatinine 0.7 Creat Clearance w eGFR POC Glucometer [phone] Random Glucose 187 H D Calcium 7.3 L Phosphorus Magnesium 1.8 Total Bilirubin AST ALT Alkaline Phosphatase Total Protein Albumin 01/14/17 01/14/17 01/14/17 17:33 19:00 19:00 WBC RBC Hgb Hct MCV MCH MCHC RDW Plt Count MPV Neutrophils % Lymphocytes % Monocytes % Eosinophils % Basophils % Sodium 128 L Potassium 4.1 Chloride 98 Carbon Dioxide 20 L Anion Gap 10 BUN 11 D Creatinine 0.7 Creat Clearance w eGFR POC Glucometer [phone] Random Glucose 184 H Calcium 7.3 L Phosphorus Magnesium 1.8 Total Bilirubin AST ALT Alkaline Phosphatase Total Protein Albumin 01/14/17 01/14/17 01/15/17 20:37 22:00 06:05 WBC RBC Hgb Hct MCV MCH MCHC RDW Plt Count MPV Neutrophils % Lymphocytes % Monocytes % Eosinophils % Basophils % Sodium 133 L Potassium 4.0 Chloride 101 Carbon Dioxide 20 L Anion Gap 12 BUN 10 Creatinine 0.5 L D Creat Clearance w eGFR POC Glucometer 136 138 Random Glucose 121 H D Calcium 8.1 L Phosphorus Magnesium Total Bilirubin AST ALT Alkaline Phosphatase Total Protein Albumin 01/15/17 01/15/17 07:40 07:40 WBC 22.2 H D RBC 3.78 Hgb 11.6 Hct 34.0 MCV 89.8 MCH 30.6 MCHC 34.1 RDW 13.9 Plt Count 375 MPV 7.1 L Neutrophils % 84.5 H Lymphocytes % 11.0 D Monocytes % 3.9 Eosinophils % 0.1 Basophils % 0.5 Sodium 132 L Potassium 3.9 Chloride 100 Carbon Dioxide 22 Anion Gap 10 BUN 8 Creatinine 0.5 L Creat Clearance w eGFR > 60 POC Glucometer Random Glucose 187 H D Calcium 7.8 L Phosphorus 1.6 L Magnesium Total Bilirubin 0.3 D AST 6 L D ALT 9 L D Alkaline Phosphatase 118 H D Total Protein 5.6 L Albumin 2.5 L D Active Medications Generic Name Dose Route Start Last Admin Trade Name Freq PRN Reason Stop Dose Admin Heparin Sodium (Porcine) 5,000 unit 01/14/17 22:00 01/15/17 06:06 Heparin - SQ 5,000 unit TID KARLENE Administration Sodium Chloride 1,000 mls @ 100 mls/hr 01/14/17 15:45 01/15/17 02:34 Normal Saline - IV 100 mls/hr ASDIR KARLENE Administration Ceftriaxone Sodium 2 gm/ 100 mls @ 200 mls/hr 01/14/17 19:30 01/15/17 09:24 Dextrose IVPB 200 mls/hr DAILY KARLENE Administration Insulin Aspart 1 vial 01/14/17 22:00 01/15/17 06:07 Novolog Vial Sliding Scale - SQ Not Given ACHS KARLENE Protocol Insulin Detemir 30 units 01/15/17 07:00 01/15/17 06:43 Levemir Vial SQ 30 units BIDI KARLENE Administration Ondansetron HCl 4 mg 01/14/17 20:46 Zofran Injection IVPUSH Q8H PRN NAUSEA ASSESSMENT/PLAN: 26yo F with PMH of IDDM, gastroparesis, recurrent DKA, pancreatitis, presents c/ o abdominal pain, nausea and vomiting, admitted for DKA. # DKA 2/2 medication noncompliance - resolved # IDDM - Levemir 30U SQ BID - Novolog SSI - BGMs # leukocytosis - improving - likely reactive from DKA, no source of infection identified - empiric Ceftriaxone 2g IVPB daily initiated pending sepsis work-up -> today is Day 2 # hypophosphatemia - repleted with KPhos IVPB - continue to monitor # OLEG - resolved - continue IVFs # FEN - Fluids: NS @ 100 ml/hr - Electrolytes: hyponatremia noted improved, continue to monitor - Nutrition: diabetic diet # Prophylaxis - DVT ppx with Heparin Visit type - Emergency Visit Emergency Visit: Yes ED Registration Date: 01/14/17 Care time: The patient presented to the Emergency Department on the above date and was hospitalized for further evaluation of their emergent condition. - New Patient This patient is new to me today: No - Critical Care Critical Care patient: No
[2017-01-15] MEDS ORDERED: POTASSIUM PHOSPHATE IVPB ONE ×2 (11:48→13:13)
[2017-01-15] MEDS ORDERED: SODIUM CHLORIDE IVPB ONE ×2 (11:48→13:13)
[2017-01-15] MEDS ORDERED: INSULIN (NOVOLOG) ASPART 100 UNITS/ML 10ML VIAL ONE (11:49)
--- NOTE | 2017-01-15 13:19 | PN ---
Progress Note, Physician History of Present Illness: Feeling better No focal complaint Afebrile WBC improved - Current Medication List Current Medications: Active Medications Heparin Sodium (Porcine) (Heparin -) 5,000 unit SQ TID [facility] Last Admin: 01/15/17 06:06 Dose: 5,000 unit Sodium Chloride (Normal Saline -) 1,000 mls @ 100 mls/hr IV ASDIR [facility] Last Admin: 01/15/17 02:34 Dose: 100 mls/hr Ceftriaxone Sodium 2 gm/ (Dextrose) 100 mls @ 200 mls/hr IVPB DAILY [facility] Last Admin: 01/15/17 09:24 Dose: 200 mls/hr Potassium Phosphate 30 mm/ (Sodium Chloride) 250 mls @ 40 mls/hr IVPB ONCE ONE Stop: 01/15/17 18:02 Insulin Aspart (Novolog Vial Sliding Scale -) 1 vial SQ ACHS [facility] PRN Reason: Protocol Last Admin: 01/15/17 11:51 Dose: 4 unit Insulin Detemir (Levemir Vial) 30 units SQ BIDI [facility] Last Admin: 01/15/17 06:43 Dose: 30 units Ondansetron HCl (Zofran Injection) 4 mg IVPUSH Q8H PRN PRN Reason: NAUSEA Last Admin: 01/15/17 10:57 Dose: 4 mg - Objective Vital Signs: Vital Signs Temperature 98.8 F 01/15/17 09:35 Pulse Rate 106 H 01/15/17 09:35 Respiratory Rate 18 01/15/17 09:35 Blood Pressure 148/98 01/15/17 09:35 O2 Sat by Pulse Oximetry (%) 98 01/15/17 09:00 Constitutional: Yes: No Distress Eyes: Yes: Conjunctiva Clear Cardiovascular: Yes: Regular Rate and Rhythm, S1, S2 Respiratory: Yes: CTA Bilaterally Gastrointestinal: Yes: Normal Bowel Sounds, Soft. No: Tenderness Edema: No Labs: CBC, BMP 01/15/17 07:40 01/15/17 07:40 Assessment/Plan DKA Leukocytosis- likely leukemoid reaction improved If cultures negative and WBC improving D/C antibiotcs
[2017-01-15 14:02] LABS: MCH 30.2 pg (25.7-33.7); MCHC 33.2 g/dl (32.0-36.0); MEAN CELL VOLUME 91.1 fl (80-96); MEAN PLT VOLUME 7.5 fl (7.5-11.1); PLATELET COUNT 381 K/MM3 (134-434); RDW 13.7 % (11.6-15.6); WHITE BLOOD COUNT 18.1 K/mm3 (4.0-10.0)
[2017-01-15 14:16] LABS: BASOPHIL %. 0.4 % (0-2.0); PLATELET COMMENTS NO CLUMPING; PLATELET ESTIMATE ADEQUATE; TOTAL CELLS COUNTED 100
[2017-01-15 14:24] LABS: ANION GAP 14 (8-16); CALCIUM 8.1 mg/dL (8.5-10.1); CO2 20 mmol/L (21-32); CREATININE 0.6 mg/dL (0.55-1.02); GLUCOSE,RANDOM 218 mg/dL (74-106)
--- NOTE | 2017-01-15 14:41 | PN ---
Teaching Attending Note Name of Resident: Cami Jaffe ATTENDING PHYSICIAN STATEMENT I saw and evaluated the patient. I reviewed the resident's note and discussed the case with the resident. I agree with the resident's findings and plan as documented. SUBJECTIVE: Patient is comfortable, no acute distress. Wants to go home since has to take care of her child. OBJECTIVE: Vital Signs Temperature 98.1 F 01/15/17 13:36 Pulse Rate 91 H 01/15/17 13:36 Respiratory Rate 20 01/15/17 13:36 Blood Pressure 146/85 01/15/17 13:36 O2 Sat by Pulse Oximetry (%) 98 01/15/17 09:00 CBCD WBC 18.1 K/mm3 (4.0-10.0) H 01/15/17 13:40 RBC 4.11 M/mm3 (3.60-5.2) 01/15/17 13:40 Hgb 12.4 GM/dL (10.7-15.3) 01/15/17 13:40 Hct 37.4 % (32.4-45.2) 01/15/17 13:40 MCV 91.1 fl (80-96) 01/15/17 13:40 MCHC 33.2 g/dl (32.0-36.0) 01/15/17 13:40 RDW 13.7 % (11.6-15.6) 01/15/17 13:40 Plt Count 381 K/MM3 (134-434) 01/15/17 13:40 MPV 7.5 fl (7.5-11.1) 01/15/17 13:40 CMP Sodium 131 mmol/L (136-145) L 01/15/17 13:40 Potassium 4.0 mmol/L (3.5-5.1) 01/15/17 13:40 Chloride 97 mmol/L (98-107) L 01/15/17 13:40 Carbon Dioxide 20 mmol/L (21-32) L 01/15/17 13:40 Anion Gap 14 (8-16) 01/15/17 13:40 BUN 8 mg/dL (7-18) 01/15/17 13:40 Creatinine 0.6 mg/dL (0.55-1.02) 01/15/17 13:40 Creat Clearance w eGFR > 60 (>60) 01/15/17 07:40 Random Glucose 218 mg/dL (74-106) H 01/15/17 13:40 Calcium 8.1 mg/dL (8.5-10.1) L 01/15/17 13:40 Total Bilirubin 0.3 mg/dL (0.2-1.0) D 01/15/17 07:40 AST 6 U/L (15-37) L D 01/15/17 07:40 ALT 9 U/L (12-78) L D 01/15/17 07:40 Alkaline Phosphatase 118 U/L (45-117) H D 01/15/17 07:40 Total Protein 5.6 g/dl (6.4-8.2) L 01/15/17 07:40 Albumin 2.5 g/dl (3.4-5.0) L D 01/15/17 07:40 Current Medications Generic Name Dose Route Start Last Admin Trade Name Freq PRN Reason Stop Dose Admin Heparin Sodium (Porcine) 5,000 unit 01/14/17 22:00 01/15/17 14:18 Heparin - SQ Not Given TID KARLENE Sodium Chloride 1,000 mls @ 100 mls/hr 01/14/17 15:45 01/15/17 02:34 Normal Saline - IV 100 mls/hr ASDIR KARLENE Administration Ceftriaxone Sodium 2 gm/ 100 mls @ 200 mls/hr 01/14/17 19:30 01/15/17 09:24 Dextrose IVPB 200 mls/hr DAILY KARLENE Administration Potassium Phosphate 30 mm/ 250 mls @ 40 mls/hr 01/15/17 13:13 01/15/17 14:19 Sodium Chloride IVPB 01/15/17 18:02 40 mls/hr ONCE ONE Administration Insulin Aspart 1 vial 01/14/17 22:00 01/15/17 11:51 Novolog Vial Sliding Scale - SQ 4 unit ACHS KARLENE Administration Protocol Insulin Detemir 30 units 01/15/17 07:00 01/15/17 06:43 Levemir Vial SQ 30 units BIDI KARLENE Administration Ondansetron HCl 4 mg 01/14/17 20:46 01/15/17 10:57 Zofran Injection IVPUSH 4 mg Q8H PRN Administration NAUSEA Home Medications Medication Instructions Recorded Insulin Lispro [Humalog] 0 unit SQ ASDIR 07/18/13 Amitriptyline HCl [Elavil -] 3 tab PO DAILY #0 06/27/15 Acetaminophen [Tylenol] 650 mg PO Q4H PRN #20 tablet 01/17/16 Metoclopramide HCl [Reglan] 10 mg PO Q6H PRN #15 tablet 01/17/16 Ranitidine HCl [Zantac] 150 mg PO BID PRN #20 tablet 01/17/16 Insulin Glargine,Hum.rec.anlog 60 unit SQ HS 12/08/16 [Kavithaaglar Isabellaikpen U-100] PE: per resident's note 01/13/19 CXR -> no acute pathology ASSESSMENT AND PLAN: 26yo F with PMHx of IDDM, gastroparesis, recurrent DKA, pancreatitis, presents c /o abdominal pain, nausea and vomiting, admitted to ICU for DKA. #s/p DKA due to noncompliance with her meds. s/p Insulin drip , eating ok, wants to go home due to her child. #Acute leukocytosis; mostly leukemoid reaction as per ID if trending down then discontinue IV antibiotic ,Bld cx, Urine Cx No growth so far. no source of infection identified at this time #Acute Psuedohyponatremia s/p IVF improved # Acute hypophosphatemia; phos 1.8-->1.6 will give phos drip over 6 hrs. and discharge patient home #OLEG resolved will be discharged once completes the phos drip.
[2017-01-15 16:47] VITALS: BP 148/89; PULSE 80; TEMP 98
--- NOTE | 2017-01-15 22:34 | DS ---
Physical Exam: SUBJECTIVE: Patient seen and examined. Pt denies fever, chills. No events overnight. OBJECTIVE: Vital Signs Period Temp Pulse Resp BP Sys/Plata Pulse Ox Last 24 Hr 98.0 F-98.8 F 80-106 18-20 134-148/81-98 98 PHYSICAL EXAM GENERAL: The patient is awake, alert, and fully oriented, in no acute distress. HEAD: Normal with no signs of trauma. LUNGS: Breath sounds equal, clear to auscultation bilaterally, no wheezes, no crackles, no accessory muscle use. HEART: Regular rate and rhythm, +S1/S2. ABDOMEN: Soft, nontender, nondistended, no guarding. EXTREMITIES: Warm, well-perfused, no edema. SKIN: Warm, dry, normal turgor, no rashes or lesions noted LABS Laboratory Results - last 24 hr 01/14/17 01/15/17 01/15/17 22:00 06:05 07:40 WBC RBC Hgb Hct MCV MCH MCHC RDW Plt Count MPV Total Counted Neutrophils % Neutrophils % (Manual) Band Neutrophils % Lymphocytes % Lymphocytes % (Manual) Monocytes % Monocytes % (Manual) Eosinophils % Eosinophils % (Manual) Basophils % Basophils % (Manual) Platelet Estimate Platelet Comment Sodium 133 L 132 L Potassium 4.0 3.9 Chloride 101 100 Carbon Dioxide 20 L 22 Anion Gap 12 10 BUN 10 8 Creatinine 0.5 L D 0.5 L Creat Clearance w eGFR > 60 POC Glucometer 138 Random Glucose 121 H D 187 H D Calcium 8.1 L 7.8 L Phosphorus 1.6 L Total Bilirubin 0.3 D AST 6 L D ALT 9 L D Alkaline Phosphatase 118 H D Total Protein 5.6 L Albumin 2.5 L D 01/15/17 01/15/17 01/15/17 07:40 11:18 13:40 WBC 22.2 H D 18.1 H RBC 3.78 4.11 Hgb 11.6 12.4 Hct 34.0 37.4 MCV 89.8 91.1 MCH 30.6 30.2 MCHC 34.1 33.2 RDW 13.9 13.7 Plt Count 375 381 MPV 7.1 L 7.5 Total Counted 100 Neutrophils % 84.5 H No Result Required. Neutrophils % (Manual) 82.1 Band Neutrophils % No Result Required. Lymphocytes % 11.0 D No Result Required. Lymphocytes % (Manual) 12.9 D Monocytes % 3.9 Monocytes % (Manual) 5 D Eosinophils % 0.1 Eosinophils % (Manual) 0.1 Basophils % 0.5 Basophils % (Manual) 0.4 Platelet Estimate Adequate Platelet Comment No clumping Sodium Potassium Chloride Carbon Dioxide Anion Gap BUN Creatinine Creat Clearance w eGFR POC Glucometer 219 Random Glucose Calcium Phosphorus Total Bilirubin AST ALT Alkaline Phosphatase Total Protein Albumin 01/15/17 01/15/17 13:40 17:32 WBC RBC Hgb Hct MCV MCH MCHC RDW Plt Count MPV Total Counted Neutrophils % Neutrophils % (Manual) Band Neutrophils % Lymphocytes % Lymphocytes % (Manual) Monocytes % Monocytes % (Manual) Eosinophils % Eosinophils % (Manual) Basophils % Basophils % (Manual) Platelet Estimate Platelet Comment Sodium 131 L Potassium 4.0 Chloride 97 L Carbon Dioxide 20 L Anion Gap 14 BUN 8 Creatinine 0.6 Creat Clearance w eGFR POC Glucometer 177 Random Glucose 218 H Calcium 8.1 L Phosphorus Total Bilirubin AST ALT Alkaline Phosphatase Total Protein Albumin HOSPITAL COURSE: Date of Admission:01/14/17 Date of Discharge: 01/15/17 26yo F with PMH of IDDM, gastroparesis, recurrent DKA, pancreatitis, presents c/ o abdominal pain, nausea and vomiting, admitted for DKA. Pt found to have leukocytosis, likely leukomoid rxn, treated empirically with Ceftriaxone. Leukocytosis trended down prior to discharge. Hypophosphatemia repleted. OLEG resolved with IVFs. 01/13/17 CXR -> no acute pathology 01/15/17 Influenza A&B (-) Pt stable for discharge home. Minutes to complete discharge: 35 Discharge Summary Reason For Visit: DKA ASSOCIATED W/DM I ABDOMINAL PAIN Condition: Improved - Instructions Diet, Activity, Other Instructions: You were treated for Diabetic Ketoacidosis (DKA). It is very important to monitor your blood sugar levels and to use the appropriate amount of insulin, to prevent another episode of DKA. Also, maintaining tight control of your blood sugars now, will prevent future problems related to diabetes (such as vision problems, cardiovascular problems, nerve pain, and amputations of your feet). Please continue your medications as prescribed. Please eat a diabetic diet, meaning monitoring your carbohydrate intake. Please resume physical activities as tolerated. Please schedule a follow-up appointment with your Primary Care Doctor (Dr. Acevedo) within 1 week of leaving the hospital. Please return to the hospital immediately if you experience persistent or increased abdominal pain, or for any medical emergency. Referrals: Clare Acevedo MD [Primary Care Provider] - 1 Week Disposition: HOME - Home Medications Comprehensive Discharge Medication List: Ambulatory Orders Insulin Lispro [Humalog] 0 unit SQ ASDIR 07/18/13 Amitriptyline HCl [Elavil -] 3 tab PO DAILY #0 06/27/15 Acetaminophen [Tylenol] 650 mg PO Q4H PRN #20 tablet 01/17/16 Metoclopramide HCl [Reglan] 10 mg PO Q6H PRN #15 tablet 01/17/16 Ranitidine HCl [Zantac] 150 mg PO BID PRN #20 tablet 01/17/16 Insulin Glargine,Hum.rec.anlog [Basaglar Kwikpen U-100] 60 unit SQ HS 12/08/16 This patient is new to me today: No Emergency Visit: Yes ED Registration Date: 01/14/17 Care time: The patient presented to the Emergency Department on the above date and was hospitalized for further evaluation of their emergent condition. Critical Care patient: No - Discharge Referral Referred to [facility] Med [facility] No
== END 2017-01-15 20:17 | disposition home or self-care (01) | DRG 420 ==
LOC: JER 18:23 → JERBED 01-14 00:38 → UNDOADMIN 01-14 00:47 → JICU 01-14 04:36 → J7W 01-14 18:03
PROVIDERS: ADMIT Internal Medicine; ATTEND Internal Medicine
DX: E10.10 Type 1 diabetes mellitus with ketoacidosis without coma (principal); E10.43 Type 1 diabetes mellitus with diabetic autonomic (poly)neuropathy; K31.84 Gastroparesis; N17.9 Acute kidney failure, unspecified; E87.2 Acidosis; F41.8 Other specified anxiety disorders; K86.1 Other chronic pancreatitis; E87.5 Hyperkalemia; F17.210 Nicotine dependence, cigarettes, uncomplicated; E83.51 Hypocalcemia; R10.13 Epigastric pain; R11.2 Nausea with vomiting, unspecified; E86.0 Dehydration; J02.9 Acute pharyngitis, unspecified; K59.09 Other constipation; D72.828 Other elevated white blood cell count; K21.9 Gastro-esophageal reflux disease without esophagitis; E87.1 Hypo-osmolality and hyponatremia; E83.39 Other disorders of phosphorus metabolism; D72.823 Leukemoid reaction; Z91.14 Patient's other noncompliance with medication regimen
CPT/HCPCS: 36415; 71010-TC; 80048; 80053; 80307; 81003; 81015; 82009; 83605; 83690; 83735; 84100; 84703; 85025; 85027; 87040; 87086; 87633; 87804; 90688; 93005; 93010; 99285-25; G0008; J1644

== ENCOUNTER 2017-01-19 18:46 | Emergency (ER) | payer OTHER ==
[2017-01-19] MEDS ORDERED: ONDANSETRON 4 MG/2 ML VIAL IVPUSH ONE (18:58)
[2017-01-19] MEDS ORDERED: FAMOTIDINE 20 MG/50 ML IVPB 20 MG/50 ML MG IVPB ONE ×2 (18:58→20:04)
[2017-01-19] MEDS ORDERED: SODIUM CHLORIDE 1,000 ML IV STA (18:59)
--- NOTE | 2017-01-19 19:02 | PDOC ---
History of Present Illness - General Stated Complaint: CHEST PAIN Time Seen by Provider: 01/19/17 18:53 - History of Present Illness Initial Comments: 01/19/17 20:11 The patient is a 26 year old female with a history of DM, gastroparesis, DKA who presents for evaluation of epigastric abdominal pain with associated nausea and vomiting. The patient reports acute onset of sharp epigastric abdominal pain with burning radiation into her chest and radiation to her back beginning earlier today. She states that she smoked some marijuana and subsequently had an episode of non-bilious, non-bloody vomiting. She states that she has not had a bowel movement in two weeks, but has been passing gas. The patient was recently admitted to the hospital for DKA discharged on 01/15. She denies fevers, chills, SOB, or numbness/weakness. She states that her blood sugar levels have been normal since discharge. EMS reports that the patient's blood glucose level was 73 en route. Past History - Past Medical History Allergies/Adverse Reactions: Allergies Allergy/AdvReac Type Severity Reaction Status Date / Time No Known Allergies Allergy Verified 01/13/17 18:59 Home Medications: Ambulatory Orders Insulin Lispro [Humalog] 0 unit SQ ASDIR 07/18/13 Amitriptyline HCl [Elavil -] 3 tab PO DAILY #0 06/27/15 Acetaminophen [Tylenol] 650 mg PO Q4H PRN #20 tablet 01/17/16 Metoclopramide HCl [Reglan] 10 mg PO Q6H PRN #15 tablet 01/17/16 Ranitidine HCl [Zantac] 150 mg PO BID PRN #20 tablet 01/17/16 Insulin Glargine,Hum.rec.anlog [Basaglar Kwikpen U-100] 60 unit SQ HS 12/08/16 Anemia: No Asthma: No Cancer: No Cardiac Disorders: No CVA: No COPD: No CHF: No Dementia: No Diabetes: Yes GI Disorders: Yes (gastroparesis) Disorders: No HTN: No Hypercholesterolemia: No Liver Disease: No Psychiatric Problems: Yes (ANXIETY DEPRESSION) Seizures: No Thyroid Disease: No - Surgical History Abdominal Surgery: No Appendectomy: No Cardiac Surgery: No Cholecystectomy: No Lung Surgery: No Neurologic Surgery: No Orthopedic Surgery: No - Family Disease History Family Disease History: Diabetes: Grandparents (great-grandmother) - Immunization History Immunization Up to Date: Yes - Suicide/Smoking/Psychosocial Hx Smoking Status: No Smoking History: Current every day smoker Have you smoked in the past 12 months: Yes Number of Cigarettes Smoked Daily: 10 'Breaking Loose' booklet given: 01/14/17 Hx Alcohol Use: No Drug/Substance Use Hx: No Substance Use Type: None Hx Substance Use Treatment: No Review of Systems - Review of Systems Comments:: 01/19/17 20:15 Constitutional: No fevers, chills, fatigue, malaise HEENT: No Rhinorrhea, nasal congestion, Cardiovascular: Chest pain. No syncope, palpitations, lightheadedness Respiratory: No Cough, SOB, Hemoptysis, Gastrointestinal: Abdominal pain, nausea, vomiting, constipation. No Diarrhea, Melena Genitourinary: No Dysuria, Frequency, Urgency, Hesitancy, Hematuria, Flank pain Musculoskeletal: No Myalgia, arthralgia Skin: No rashes, bruising, pallor Neurologic: No Headache, Dizziness, Numbness, Weakness, or Tingling Psychiatric: No Hallucinations. No SI or HI *Physical Exam - Physical Exam Comments: 01/19/17 20:18 General Appearance: Nourished. No Apparent Distress HEENT: EOMI, KEYSHA. Neck: No Cervical Lymphadenopathy Respiratory/Chest: Lungs Clear, Normal Breath Sounds. No Crackles, Rales, Rhonchi, Wheezing Cardiovascular: Regular Rhythm, Regular Rate. No Murmur, Gallops, Rubs Gastrointestinal/Abdominal: Normal Bowel Sounds, Soft. Epigastric tenderness to palpation. No Guarding, Rebound, Musculoskeletal: No CVA Tenderness Extremity: Normal Capillary Refill Integumentary: Normal Color, Dry, Warm Neurologic: Fully Oriented, Alert, Normal Mood/Affect, Normal Response, ED Treatment Course - LABORATORY CBC & Chemistry Diagram: 01/19/17 20:30 01/19/17 20:30 Medical Decision Making - Medical Decision Making 01/19/17 20:19 The patient is a 26 year old female with a history of DM, gastroparesis, DKA who presents for evaluation of epigastric abdominal pain with associated nausea and vomiting. Differential includes but is not limited to: Gastritis, pancreatitis, DKA, infectious, metabolic derangement. Given the patient's history of gastroparesis as well as symptoms of epigastric abdominal pain, it is likely her symptoms are due to gastroparesis vs. gastritis. We will obtain a cbc, cmp, lipase, ua, urine preg to evaluate further. We will treat the patient with iv fluids, benadryl, reglan, pepcid here in the ED. We will continue to monitor and reassess. 01/19/17 22:46 CBC, cmp, lipase, ua, urine preg are unremarkable. Patient signed out to Dr. Guerra pending reassessment after medications. *DC/Admit/Observation/Transfer Diagnosis at time of Disposition: Gastroparesis Nausea & vomiting Qualifiers: Vomiting type: unspecified Vomiting Intractability: unspecified Qualified Code( s): R11.2 - Nausea with vomiting, unspecified - Discharge Dispostion Disposition: HOME Condition at time of disposition: Stable - Referrals Referrals: Clare Acevedo MD [Primary Care Provider] - - Patient Instructions Printed Discharge Instructions: DI for Gastroparesis Additional Instructions: please take your regular medications and followup with your physician - Post Discharge Activity
[2017-01-19] MEDS ORDERED: METOCLOPRAMIDE HCL INJECTION 10 MG/2 ML VIAL IVPUSH ONE (19:05)
--- NOTE | 2017-01-19 19:10 | PDOC ---
Attending Attestation - Resident Resident Name: Geronimo Ordoñez - ED Attending Attestation I have performed the following: I have examined & evaluated the patient, The case was reviewed & discussed with the resident, I agree w/resident's findings & plan, Exceptions are as noted - HPI HPI: 01/19/17 19:09 26-year-old female with a history of insulin-dependent diabetes and gastroparesis presents with epigastric and substernal chest discomfort, nausea and vomiting after smoking marijuana The patient was recently discharged from [facility] on January 15 after being treated for DKA. - Physicial Exam PE: 01/19/17 23:44 Well-nourished, well-developed 26-year-old female comes in with epigastric discomfort and vomiting. Head normocephalic/atraumatic. Neck supple Lungs clear to auscultation bilaterally CVS regular rate and rhythm S1, S2 Abdominal exam, some mild epigastric tenderness to deep palpation, but there is no rebound or guarding. Extremities full range of motion, no deformity, Skin no evidence of cellulitis or abscesses. Psych appropriate, alert and oriented, able to participate and her exam. Neuro the patient is ambulatory, has no gross focal neural deficits - Medical Decision Making 01/20/17 03:16 pt felt much better and was discharged home
[2017-01-19 19:43] VITALS: BMI 28.3
[2017-01-19] MEDS ORDERED: METOCLOPRAMIDE HCL INJECTION 10 MG/2 ML VIAL ONE (20:04)
[2017-01-19 20:41] LABS: MCH 30.9 pg (25.7-33.7); MCHC 33.8 g/dl (32.0-36.0); MEAN CELL VOLUME 91.5 fl (80-96); MEAN PLT VOLUME 7.5 fl (7.5-11.1); PLATELET COUNT 572 K/MM3 (134-434); RDW 14.4 % (11.6-15.6); WHITE BLOOD COUNT 29.8 K/mm3 (4.0-10.0)
[2017-01-19 20:57] LABS: PLATELET COMMENTS NO CLUMPING NOTED; PLATELET ESTIMATE INCREASED; TOTAL CELLS COUNTED 100
[2017-01-19 21:20] LABS: CREATININE 0.6 mg/dL (0.55-1.02)
[2017-01-19 21:22] LABS: ALBUMIN 3.6 g/dl (3.4-5.0); ALK PHOS 127 U/L (45-117); ANION GAP 11 (8-16); BILIRUBIN,TOTAL 0.4 mg/dL (0.2-1.0); CALCIUM 9.2 mg/dL (8.5-10.1); CO2 27 mmol/L (21-32); GLUCOSE,RANDOM 93 mg/dL (74-106); SGOT/AST 16 U/L (15-37); SGPT/ALT 23 U/L (12-78); TOT PROT 7.5 g/dl (6.4-8.2)
[2017-01-19 23:21] VITALS: BP 139/85; PULSE 93; TEMP 98.6
[2017-01-19] MEDS ORDERED: AMITRIPTYLINE HCL 75 MG TABLET PO ONE (23:40)
[2017-01-19] MEDS ORDERED: AMITRIPTYLINE HCL 25 MG TABLET (FP) ONE (23:48)
--- NOTE | 2017-01-19 23:48 | PDOC ---
*Physical Exam - Vital Signs Last Vital Signs Temp Pulse Resp BP Pulse Ox 98.6 F 93 H 19 139/85 99 01/19/17 23:20 01/19/17 23:20 01/19/17 23:20 01/19/17 23:20 01/19/17 23:20 ED Treatment Course - LABORATORY CBC & Chemistry Diagram: 01/19/17 20:30 01/19/17 20:30 - ADDITIONAL ORDERS Additional order review: Laboratory Results 01/19/17 01/19/17 20:30 19:35 Sodium 139 Cancelled Potassium 4.1 Cancelled Chloride 101 Cancelled Carbon Dioxide 27 D Cancelled Anion Gap 11 Cancelled BUN 13 D Cancelled Creatinine 0.6 Cancelled Creat Clearance w eGFR > 60 Cancelled Random Glucose 93 D Cancelled Calcium 9.2 Cancelled Total Bilirubin 0.4 D Cancelled AST 16 D Cancelled ALT 23 D Cancelled Alkaline Phosphatase 127 H Cancelled Total Protein 7.5 D Cancelled Albumin 3.6 D Cancelled Lipase 55 L Cancelled 01/19/17 01/19/17 20:30 19:35 RBC 4.29 Cancelled MCV 91.5 Cancelled MCHC 33.8 Cancelled RDW 14.4 Cancelled MPV 7.5 Cancelled Neutrophils % No Result Required. Cancelled Lymphocytes % No Result Required. Cancelled Monocytes % Cancelled Eosinophils % Cancelled Basophils % Cancelled - Medications Given in the ED: ED Medications Discontinued Medications Generic Name Dose Route Start Last Admin Trade Name Toñoq PRN Reason Stop Dose Admin Diphenhydramine HCl 12.5 mg 01/19/17 19:05 01/19/17 20:20 Benadryl Injection - IVPUSH 01/19/17 19:06 12.5 mg ONCE ONE Administration Famotidine/Sodium Chloride 20 mg in 50 mls @ 100 mls/hr 01/19/17 18:58 20:19 Pepcid 20 Mg Premixed Ivpb - IVPB 01/19/17 19:27 100 mls/hr ONCE ONE Administration Sodium Chloride 1,000 mls @ 1,000 mls/hr 01/19/17 18:59 01/19/17 20:20 Normal Saline - IV 01/19/17 19:58 1,000 mls/hr ASDIR STA Administration Metoclopramide HCl 10 mg 01/19/17 19:05 01/19/17 20:28 Reglan Injection - IVPUSH 01/19/17 19:06 10 mg ONCE ONE Administration Ondansetron HCl 4 mg 01/19/17 18:58 01/19/17 20:28 Zofran Injection IVPUSH 01/19/17 18:59 Not Given ONCE ONE *DC/Admit/Observation/Transfer Diagnosis at time of Disposition: Gastroparesis Nausea & vomiting Qualifiers: Vomiting type: unspecified Vomiting Intractability: unspecified Qualified Code( s): R11.2 - Nausea with vomiting, unspecified - Discharge Dispostion Disposition: HOME Condition at time of disposition: Stable - Referrals Referrals: Clare Acevedo MD [Primary Care Provider] - - Patient Instructions Printed Discharge Instructions: DI for Gastroparesis Additional Instructions: please take your regular medications and followup with your physician - Post Discharge Activity
--- NOTE | 2017-01-20 13:17 | EKG ---
Test Reason : Blood Pressure : / mmHG Vent. Rate : 116 BPM Atrial Rate : 116 BPM P-R Int : 116 ms QRS Dur : 062 ms QT Int : 320 ms P-R-T Axes : 036 006 021 degrees QTc Int : 444 ms POOR DATA QUALITY, INTERPRETATION MAY BE ADVERSELY AFFECTED SINUS TACHYCARDIA CANNOT RULE OUT ANTERIOR INFARCT (CITED ON OR BEFORE 05-NOV-2016) ABNORMAL ECG WHEN COMPARED WITH ECG OF 13-JAN-2017 23:55, T WAVE AMPLITUDE HAS DECREASED IN ANTEROLATERAL LEADS Confirmed by INNA BROCK, MORENO ([id number]) on 01/20/2017 1:17:01 PM Referred By: Confirmed By:MORENO KEITH MD
== END 2017-01-20 00:32 | disposition home or self-care (01) ==
LOC: JER 18:46
PROC: 3E033GC Introduction of Other Therapeutic Substance into Peripheral Vein, Percutaneous Approach (ICD-10-PCS; principal; 2017-01-19)
PROC: 3E033GC Introduction of Other Therapeutic Substance into Peripheral Vein, Percutaneous Approach (ICD-10-PCS; 2017-01-19)
DX: K31.84 Gastroparesis (principal); E10.9 Type 1 diabetes mellitus without complications; Z79.4 Long term (current) use of insulin; F12.10 Cannabis abuse, uncomplicated; F41.8 Other specified anxiety disorders; F17.210 Nicotine dependence, cigarettes, uncomplicated
CPT/HCPCS: 36415; 80053; 83690; 85025; 93005; 93010; 96365; 96375; 99283-25

== ENCOUNTER 2017-02-27 12:14 | Emergency (ER) | payer OTHER ==
--- NOTE | 2017-02-27 12:27 | PDOC ---
Attending Attestation - Resident Resident Name: AwadNishi - ED Attending Attestation I have performed the following: I have examined & evaluated the patient, The case was reviewed & discussed with the resident, I agree w/resident's findings & plan, Exceptions are as noted - HPI HPI: 02/27/17 18:13 26yo F hx DM1 c/b gastroparesis, multiple admissions for DKA p/w abdominal pain , nausea, and vomiting x1 day. She states that the pain is 10/10 in the upper abdomen and radiates to the right upper back. This feels the same as her prior gastroparesis flares and DKA episodes. Pt was admitted here for similar sxs last month. She notes chest pain, SOB, strong smelling urine, and inability to keep down any PO foods, liquids, or medications (but prior to the onset she was taking all her medications adherently). Denies fevers, chills, cough, focal weakness or numbness. Denies recent travel or immobility. - Physicial Exam PE: 02/27/17 18:15 agree with resident exam - Medical Decision Making 02/27/17 18:15 26yo F hx DM1 with frequent gastropareisis flares and DKA p/w sxs c/f gastropareisis +/- DKA. Pt initially tachy to 120s, vomiting in ED, however nausea improved with zofran and reglan. Labs with normal AG, glucose 360, trace acetone, pH 7.4. Pt also with leukocytosis to 26, however she normally has elevated WBC for unknown reasons. Lactate mildly elevated to 2.8. Presentation likely not consistent with DKA but more so gastroparesis, although trace acetone could be consistent with very early DKA. Pt received IV tylenol for pain , she requested morphine although I discussed with her that this is not advisable in the setting of gastropareisis. She also received 2L NS, with persistent tachycardia to 120s. Pt not willing to try anything PO as she is very nauseous. At this point, we decided to admit the patient to observation. When admitting attending arrived (Dr. Chauhan), the pt reported she has to go home because her child needs her. We discussed with the patient that due to her PO intolerance, elevated lactate, glucose and tachycardia that we recommend she stay for observation until she can tolerate PO and her HR normalizes. The patient is clinically sober, free from distracting injury, appears to have intact insight and judgment and reason and in my opinion has the capacity to make decisions. The patient presents with vomiting, pain, tachycardia, elevated glucose and elevated lactate. I have explained that I am concerned that this may represent infection, dehydration, or very early DKA; she has verbalized an understanding of my concerns. I have discussed the need for observation to get more information about potential causes of the patients symptoms. I have told the patient that if she leaves and has persistent tachycardia, elevated lactate , vomiting, she could get much worse, could become critically ill, and could possibly become disabled or . I have offered to give the patient more pain medication. I have asked her to stay in the hospital for serial exams. The patient is not willing to undergo observation or further work up. She is unwilling to stay overnight for monitoring. She is refusing any further care and is leaving against medical advice. I am unable to convince the patient to stay, I have asked them to return as soon as possible to complete their evaluation.I have answered all their questions.
[2017-02-27] MEDS ORDERED: SODIUM CHLORIDE 0.9% 500 ML INFUS.BAG IV ONE (12:29)
--- NOTE | 2017-02-27 12:44 | PDOC ---
History of Present Illness - General Stated Complaint: Gastroparesis Time Seen by Provider: 02/27/17 12:22 History Source: Patient Exam Limitations: No Limitations - History of Present Illness Initial Comments: This is a 26 YOF with h/o type 1 IDDM, gastroparesis, and multiple episodes of DKA who p/w abdominal pain, nausea, and vomiting worsening over the past day. She states that the pain is 10/10 in the upper abdomen and radiates to the right upper back. This feels the same as her prior gastroparesis flares and DKA episodes. The last time she had DKA was last month when she was admitted here at [facility]. She notes chest pain, SOB, strong smelling urine, and inability to keep down any PO foods, liquids, or medications (but prior to the onset she was taking all her medications adherently). She denies any burning on urination or cough. Past History - Past Medical History Allergies/Adverse Reactions: Allergies Allergy/AdvReac Type Severity Reaction Status Date / Time No Known Allergies Allergy Verified 01/13/17 18:59 Home Medications: Ambulatory Orders Insulin Lispro [Humalog] 0 unit SQ ASDIR 07/18/13 Amitriptyline HCl [Elavil -] 3 tab PO DAILY #0 06/27/15 Acetaminophen [Tylenol] 650 mg PO Q4H PRN #20 tablet 01/17/16 Metoclopramide HCl [Reglan] 10 mg PO Q6H PRN #15 tablet 01/17/16 Ranitidine HCl [Zantac] 150 mg PO BID PRN #20 tablet 01/17/16 Insulin Glargine,Hum.rec.anlog [Basaglar Kwikpen U-100] 60 unit SQ HS 12/08/16 Anemia: No Asthma: No Cancer: No Cardiac Disorders: No CVA: No COPD: No CHF: No Dementia: No Diabetes: Yes GI Disorders: Yes (gastroparesis) Disorders: No HTN: No Hypercholesterolemia: No Liver Disease: No Psychiatric Problems: Yes (ANXIETY DEPRESSION) Seizures: No Thyroid Disease: No - Surgical History Abdominal Surgery: No Appendectomy: No Cardiac Surgery: No Cholecystectomy: No Lung Surgery: No Neurologic Surgery: No Orthopedic Surgery: No - Family Disease History Family Disease History: Diabetes: Grandparents (great-grandmother) - Immunization History Immunization Up to Date: Yes - Suicide/Smoking/Psychosocial Hx Smoking Status: No Smoking History: Current every day smoker Have you smoked in the past 12 months: Yes Number of Cigarettes Smoked Daily: 10 'Breaking Loose' booklet given: 01/14/17 Hx Alcohol Use: No Drug/Substance Use Hx: No Substance Use Type: None Hx Substance Use Treatment: No Abd/GI Specific PMHX - Complaint Specific PMHX GERD: Yes Pancreatitis: Yes Review of Systems - Review of Systems Able to Perform ROS?: Yes Constitutional: No: Chills, Fever, Unexplained wgt Loss HEENTM: No: Nose Congestion, Throat Pain Respiratory: Yes: Shortness of Breath. No: Cough Cardiac (ROS): Yes: Chest Pain. No: Palpitations ABD/GI: Yes: Nausea, Vomiting, Other (abdominal pain). No: Constipated, Diarrhea : Yes: Other (strong smelling urine). No: Burning, Dysuria Musculoskeletal: Yes: Back Pain. No: Neck Pain Integumentary: No: Bruising, Rash Neurological: No: Headache, Numbness, Tingling, Weakness, Dizziness Endocrine: No: Unexplained Weight Gain, Unexplained Weight Loss *Physical Exam - Physical Exam General Appearance: Yes: Nourished, Appropriately Dressed, Moderate Distress, Other (tearful, face diaphoretic, laying on left side in position, answers appropriately but appears very uncomfortable) HEENT: positive: EOMI, Normal Voice, Hearing Grossly Normal. negative: Scleral Icterus (R), Scleral Icterus (L), Nasal Congestion Neck: positive: Trachea midline, Supple. negative: Tender, Rigid Respiratory/Chest: positive: Lungs Clear, Normal Breath Sounds. negative: Respiratory Distress, Crackles, Rhonchi, Stridor, Wheezing Cardiovascular: positive: Regular Rhythm, Regular Rate. negative: Murmur Gastrointestinal/Abdominal: positive: Normal Bowel Sounds, Tender (diffuse abdominal ttp worse in the epigastric region), Soft. negative: Organomegaly, Pulsatile Mass, Guarding Musculoskeletal: positive: Normal Inspection. negative: Decreased Range of Motion, Vertebral Tenderness Extremity: positive: Normal Inspection, Normal Range of Motion, Other (delayed capillary refill). negative: Tender, Cyanosis Integumentary: positive: Normal Color, Dry, Warm, Diaphoresis. negative: Erythema, Rash, Bruising Neurologic: positive: blueprint duplicator II-XII NML intact (grossly), Fully Oriented, Alert, Normal Mood/Affect, Normal Response, Motor Strength 07/10 ED Treatment Course - LABORATORY CBC & Chemistry Diagram: 02/27/17 13:00 02/27/17 13:00 Medical Decision Making - Medical Decision Making 26F with h/o IDDM, gastroparesis, frequent DKA p/w abdominal pain, n/v similar to prior flares of gastro and DKA. On exam she is tachycardic, tachypneic, moderate distress, diaphoretic, uncomfortable, epigastric ttp. DDX IBNLT DKA, gastroparesis, cholecystitis, pancreatitis, PUD, gastritis, SBO, etc. Ordered is CBCD, CMP, Mg, EKG, acetone, VBG, coags, type/screen, troponin, UA cx , hCG. 02/27/17 15:30 Initial lactate results at 2.8. Patient has received one liter IVF, remains tachycardic to 122 and RR 23 even while sleeping soundly. Second liter IVF started and will repeat lactate after completed. 02/27/17 16:56 Spoke with Stan regarding admission to obs. 02/27/17 17:45 Patient now refuses admission, wishes to leave AMA. Risks of leaving AMA are discussed with her and she is adamant she wishes to go home. Return precautions are discussed and the patient is signed out AMA. *DC/Admit/Observation/Transfer Diagnosis at time of Disposition: Gastroparesis, Insulin dependent diabetes mellitus Nausea & vomiting Qualifiers: Vomiting type: unspecified Vomiting Intractability: intractable Qualified Code( s): R11.2 - Nausea with vomiting, unspecified - Discharge Dispostion Disposition: AGAINST MEDICAL ADVICE Condition at time of disposition: Guarded Admit: No - Referrals Referrals: Clare Acevedo MD [Primary Care Provider] - - Patient Instructions Additional Instructions: You were seen in the ER for abdominal pain, nausea, and vomiting. We did lab tests on your blood and urine and did find an elevated acetone level which can suggest DKA. We found a high white blood cell count also, which has been noted on your prior medical record. Your lactic acid level was also high, which can indicate infection. Your electrocardiogram showed no new concerning changes. We recommended admission to the hospital for you, and the inpatient doctors came and spoke with you. You are choosing to leave against medical advice. Please follow up closely with your regular doctor or return to the ER if you change your mind, or if you have new or worsening symptoms. - Post Discharge Activity
[2017-02-27 12:54] VITALS: TEMP 97.2; BMI 28.3
[2017-02-27 13:21] LABS: VENOUS BLOOD GAS HCO3 27.2 meq/L (19-25); VENOUS PH 7.44 (7.32-7.42)
[2017-02-27 13:28] LABS: BASO # 0.1 # (0.1-1); MCH 29.5 pg (25.7-33.7); MCHC 32.5 g/dl (32.0-36.0); MEAN CELL VOLUME 90.7 fl (80-96); MEAN PLT VOLUME 8.2 fl (7.5-11.1); MONO # 0.6 # (3.8-10.2); NEUT # 25.2 # (42.8-82.8); PLATELET COUNT 501 K/MM3 (134-434); RDW 14.1 % (11.6-15.6); WHITE BLOOD COUNT 26.9 K/mm3 (4.0-10.0)
[2017-02-27] MEDS ORDERED: ONDANSETRON 4 MG/2 ML VIAL IVPUSH ONE (13:34)
[2017-02-27] MEDS ORDERED: ONDANSETRON 4 MG/2 ML VIAL ONE (13:34)
[2017-02-27] MEDS ORDERED: METOCLOPRAMIDE HCL INJECTION 10 MG/2 ML VIAL IVPB ONE (13:34)
[2017-02-27] MEDS ORDERED: METOCLOPRAMIDE HCL INJECTION 10 MG/2 ML VIAL ONE (13:43)
[2017-02-27 13:45] LABS: INR 1.04 (0.82-1.09); PROTHROMBIN TIME (PATIENT) 11.7 SEC (9.98-11.88)
[2017-02-27 13:57] LABS: ALBUMIN 3.7 g/dl (3.4-5.0); ANION GAP 13 (8-16); BILIRUBIN,TOTAL 0.7 mg/dL (0.2-1.0); CALCIUM 10.1 mg/dL (8.5-10.1); CO2 27 mmol/L (21-32); CREATININE 0.9 mg/dL (0.55-1.02); MAGNESIUM 1.9 mg/dL (1.8-2.4); SGOT/AST 7 U/L (15-37); SGPT/ALT 21 U/L (12-78); TOT PROT 7.6 g/dl (6.4-8.2)
[2017-02-27 14:00] LABS: ALK PHOS 137 U/L (45-117); TROPONIN I < 0.02 ng/ml (0.00-0.05)
[2017-02-27 14:06] LABS: GLUCOSE,RANDOM 360 mg/dL (74-106)
[2017-02-27 15:02] LABS: TOTAL CELLS COUNTED 100
[2017-02-27 15:03] LABS: PLATELET ESTIMATE SLT INCREASE
[2017-02-27] MEDS ORDERED: ACETAMINOPHEN 1000 MG/100 ML VIAL (NON FORMULARY) IVPB ONE (15:28)
[2017-02-27] MEDS ORDERED: ACETAMINOPHEN INJECTION 100 ML IVPB ONE (15:29)
[2017-02-27 15:44] LABS: URINE APPEARANCE SLCLOUDY; URINE BILIRUBIN NEGATIVE (NEGATIVE); URINE BLOOD 1+ (NEGATIVE); URINE COLOR LTYELLOW; URINE GLUCOSE (UA) 3+ (NEGATIVE); URINE KETONE 2+ (NEGATIVE); URINE LEUK ESTERASE NEGATIVE (NEGATIVE); URINE NITRITE NEGATIVE (NEGATIVE); URINE UROBILINOGEN NEGATIVE mg/dL (0.2-1.0)
[2017-02-27 15:46] LABS: URINE PROTEIN 2+ (NEGATIVE)
[2017-02-27 15:48] LABS: URINE RBC 3 /hpf (0-3); URINE WBC 19 /hpf (3-5)
[2017-02-27] MEDS ORDERED: SODIUM CHLORIDE 0.9% 1000 ML INFUS.BAG IV ONE (16:12)
--- NOTE | 2017-02-27 16:12 | EKG ---
Test Reason : Blood Pressure : / mmHG Vent. Rate : 122 BPM Atrial Rate : 122 BPM P-R Int : 144 ms QRS Dur : 060 ms QT Int : 306 ms P-R-T Axes : 043 009 013 degrees QTc Int : 436 ms SINUS TACHYCARDIA CANNOT RULE OUT ANTERIOR INFARCT (CITED ON OR BEFORE 05-NOV-2016) ABNORMAL ECG WHEN COMPARED WITH ECG OF 19-JAN-2017 19:25, NO SIGNIFICANT CHANGE WAS FOUND Confirmed by CARMEN BROCK, CAROLINA ([id number]) on 02/27/2017 4:11:53 PM Referred By: Confirmed By:CAROLINA MORALES MD
[2017-02-27 18:10] VITALS: BP 159/98
[2017-02-27 18:45] VITALS: PULSE 122
[2017-02-27 21:03] LABS: URINE LEUK ESTERASE Negative (NEGATIVE)
== END 2017-02-27 18:11 | disposition left against medical advice (07) ==
LOC: JER 12:14
PROC: 3E033NZ Introduction of Analgesics, Hypnotics, Sedatives into Peripheral Vein, Percutaneous Approach (ICD-10-PCS; principal; 2017-02-27)
PROC: 3E033GC Introduction of Other Therapeutic Substance into Peripheral Vein, Percutaneous Approach (ICD-10-PCS; 2017-02-27)
PROC: 3E033GC Introduction of Other Therapeutic Substance into Peripheral Vein, Percutaneous Approach (ICD-10-PCS; 2017-02-27)
DX: E10.43 Type 1 diabetes mellitus with diabetic autonomic (poly)neuropathy (principal); K31.84 Gastroparesis; Z79.4 Long term (current) use of insulin
CPT/HCPCS: 36415; 80053; 81003; 81015; 82009; 82803; 83605; 83690; 83735; 83880; 84484; 84702; 84703; 85025; 85610; 85730; 86850; 86900; 86901; 87086; 87186; 93005; 93010; 99284-25

== ENCOUNTER 2017-02-28 21:03 | Inpatient (IN) | payer OTHER ==
[2017-02-28 21:25] VITALS: BMI 26.4
[2017-02-28] MEDS ORDERED: ONDANSETRON 4 MG/2 ML VIAL IVPUSH ONE (21:38)
[2017-02-28] MEDS ORDERED: FAMOTIDINE 20 MG/50 ML IVPB 20 MG/50 ML MG IVPB ONE (21:38)
[2017-02-28] MEDS ORDERED: SODIUM CHLORIDE 0.9% 1000 ML INFUS.BAG IV ONE (21:39)
--- NOTE | 2017-02-28 21:40 | PDOC ---
History of Present Illness - General Chief Complaint: Nausea/Vomiting Stated Complaint: ABDOMINAL PAIN Time Seen by Provider: 02/28/17 21:27 History Source: Patient Exam Limitations: No Limitations - History of Present Illness Initial Comments: This is a 26 YOF with h/o IDDM (non-adherent), gastroparesis with frequent flares, and DKA multiple times who returns to the ED after leaving AMA yesterday. She has epigastric abdominal pain, nausea, and vomiting the same as yesterday and the same as her prior flares of gastroparesis which are indistinguishable from her episodes of DKA. She had no symptoms yesterday when she left AMA from the ED after being offered (and recommended) observation admission, but the symptoms began again this morning and have worsened since then. She has taken no medications today other than her normal insulin (did not take Reglan). She denies fever, chills, diarrhea, constipation, dysuria, cough, chest pain, SOB, palpitations, lightheadedness, headache, or other symptoms. Past History - Past Medical History Allergies/Adverse Reactions: Allergies Allergy/AdvReac Type Severity Reaction Status Date / Time No Known Allergies Allergy Verified 02/28/17 21:24 Home Medications: Ambulatory Orders Insulin Lispro [Humalog] 0 unit SQ ASDIR 07/18/13 Amitriptyline HCl [Elavil -] 3 tab PO DAILY #0 06/27/15 Acetaminophen [Tylenol] 650 mg PO Q4H PRN #20 tablet 01/17/16 Metoclopramide HCl [Reglan] 10 mg PO Q6H PRN #15 tablet 01/17/16 Ranitidine HCl [Zantac] 150 mg PO BID PRN #20 tablet 01/17/16 Insulin Glargine,Hum.rec.anlog [Basaglar Kwikpen U-100] 60 unit SQ HS 12/08/16 Nitrofurantoin Monohyd/M-Cryst [Macrobid -] 100 mg PO BID #14 capsule 03/02/17 Anemia: No Asthma: No Cancer: No Cardiac Disorders: No CVA: No COPD: No CHF: No Dementia: No Diabetes: Yes GI Disorders: Yes (gastroparesis) Disorders: No HTN: No Hypercholesterolemia: No Liver Disease: No Psychiatric Problems: Yes (ANXIETY DEPRESSION) Seizures: No Thyroid Disease: No - Surgical History Abdominal Surgery: No Appendectomy: No Cardiac Surgery: No Cholecystectomy: No Lung Surgery: No Neurologic Surgery: No Orthopedic Surgery: No - Family Disease History Family Disease History: Diabetes: Grandparents (great-grandmother) - Immunization History Immunization Up to Date: Yes - Suicide/Smoking/Psychosocial Hx Smoking Status: No Smoking History: Never smoked Have you smoked in the past 12 months: Yes Number of Cigarettes Smoked Daily: 10 Information on smoking cessation initiated: Yes 'Breaking Loose' booklet given: 01/14/17 Hx Alcohol Use: No Drug/Substance Use Hx: No Substance Use Type: None Hx Substance Use Treatment: No Abd/GI Specific PMHX - Complaint Specific PMHX GERD: Yes Pancreatitis: Yes *Physical Exam - Vital Signs Last Vital Signs Temp Pulse Resp BP Pulse Ox 98.9 F 121 H 22 173/98 100 02/28/17 21:21 02/28/17 21:21 02/28/17 21:21 02/28/17 21:21 02/28/17 21:21 - Physical Exam General Appearance: Yes: Nourished, Appropriately Dressed, Mild Distress, Other (uncomfortable-appearing adult female without active vomiting, answering questions appropriately) HEENT: positive: EOMI, Normal Voice, Hearing Grossly Normal. negative: Scleral Icterus (R), Scleral Icterus (L), Nasal Congestion Neck: positive: Trachea midline, Supple. negative: Tender, Rigid Respiratory/Chest: positive: Lungs Clear, Normal Breath Sounds. negative: Chest Tender, Respiratory Distress, Crackles, Rhonchi, Stridor, Wheezing Cardiovascular: positive: Regular Rhythm, Regular Rate. negative: Murmur Gastrointestinal/Abdominal: positive: Normal Bowel Sounds, Tender (mild epigastric), Soft. negative: Organomegaly, Pulsatile Mass, Guarding Musculoskeletal: positive: Normal Inspection. negative: Decreased Range of Motion, Vertebral Tenderness Extremity: positive: Normal Capillary Refill, Normal Inspection, Normal Range of Motion. negative: Tender, Cyanosis Integumentary: positive: Normal Color, Dry, Warm. negative: Erythema, Rash, Bruising Neurologic: positive: sheet rock applicator II-XII NML intact (grossly), Fully Oriented, Alert, Normal Mood/Affect, Normal Response, Motor Strength 5/5 ED Treatment Course - LABORATORY CBC & Chemistry Diagram: 03/01/17 07:00 03/01/17 07:00 Medical Decision Making - Medical Decision Making 26 YOF with h/o poorly controlled IDDM, gastroparesis, DKA returns to the ED with continued abdominal pain/n/v which is NBNB. Unchanged exam with epigastric ttp, uncomfortable but no active vomiting. CBCD, CMP, lipase ordered. [facility] sent to [facility] for obs admission 03/01/17 00:[address] Charles who will admit to med/surg obs. CXR and lactate ordered. *DC/Admit/Observation/Transfer Diagnosis at time of Disposition: Gastroparesis - Discharge Dispostion Disposition: AGAINST MEDICAL ADVICE Condition at time of disposition: Fair Admit: Yes - Prescriptions - Referrals - Patient Instructions - Post Discharge Activity
[2017-02-28] MEDS ORDERED: ACETAMINOPHEN 1000 MG/100 ML VIAL (NON FORMULARY) IVPB ONE (21:41)
[2017-02-28] MEDS ORDERED: METOCLOPRAMIDE HCL INJECTION 10 MG/2 ML VIAL IVPUSH ONE (21:41)
[2017-02-28] MEDS ORDERED: METOCLOPRAMIDE HCL INJECTION 10 MG/2 ML VIAL ONE (22:03)
[2017-02-28] MEDS ORDERED: ACETAMINOPHEN INJECTION 100 ML IVPB ONE (22:03)
[2017-02-28] MEDS ORDERED: ONDANSETRON 4 MG/2 ML VIAL ONE (22:04)
[2017-02-28 22:55] LABS: VENOUS BLOOD GAS HCO3 22.8 meq/L (19-25); VENOUS PH 7.45 (7.32-7.42)
[2017-02-28 23:03] LABS: BASO # 0.1 # (0.1-1); BASO % 0.3 % (0-2.0); EOS % 0.1 % (0-4.5); LYMPH # 1.2 (8-40); MCH 30.1 pg (25.7-33.7); MCHC 32.3 g/dl (32.0-36.0); MEAN CELL VOLUME 93.4 fl (80-96); MEAN PLT VOLUME 8.4 fl (7.5-11.1); MONO # 0.4 # (3.8-10.2); NEUT # 14.5 # (42.8-82.8); NEUT % 89.6 % (42.8-82.8); PLATELET COUNT 167 K/MM3 (134-434); WHITE BLOOD COUNT 16.2 K/mm3 (4.0-10.0)
--- NOTE | 2017-02-28 23:17 | PDOC ---
Attending Attestation - Resident Resident Name: DelmiNishi - ED Attending Attestation I have performed the following: I have examined & evaluated the patient, The case was reviewed & discussed with the resident, I agree w/resident's findings & plan, Exceptions are as noted - HPI HPI: 02/28/17 23:15 26yo F hx DM1 c/b gastroparesis, multiple admissions for DKA p/w abdominal pain , nausea, and vomiting x1 day. Pt was seen by me yesterday for similar sxs and signed out AMA. She states that the pain is 10/10 in the upper abdomen and radiates to the right upper back. This feels the same as her prior gastroparesis flares and DKA episodes. Pt was admitted here for similar sxs last month. She also reports inability to keep down any PO foods, liquids, or medications Denies fevers, chills, CP, SOB, cough, focal weakness or numbness. Denies recent travel or immobility. - Physicial Exam PE: 02/28/17 23:16 agree with resident exam - Medical Decision Making 02/28/17 23:16 26yo F hx DM1, gastropareisis, DKA p/w abd pain, N/V concerning for gastropareisis flare with possible DKA. Will do work up and provide symptomatic control and reassess. 03/01/17 00:41 Normal AG, 1+ acetone, glucose 370. Likely hyperglycemia vs early DKA. Pt not tolerating PO. PT admitted to obs for further management.
[2017-02-28 23:26] LABS: ALBUMIN 3.5 g/dl (3.4-5.0); ALK PHOS 136 U/L (45-117); ANION GAP 14 (8-16); BILIRUBIN,TOTAL 0.5 mg/dL (0.2-1.0); CALCIUM 8.9 mg/dL (8.5-10.1); CO2 23 mmol/L (21-32); CREATININE 0.8 mg/dL (0.55-1.02); SGOT/AST 11 U/L (15-37); SGPT/ALT 18 U/L (12-78); TOT PROT 7.2 g/dl (6.4-8.2)
[2017-02-28 23:33] LABS: GLUCOSE,RANDOM 372 mg/dL (74-106)
[2017-02-28 23:45] LABS: ACETONE SERUM POSITIVE SMALL 1+ (NEGATIVE)
--- NOTE | 2017-03-01 00:24 | PN ---
Teaching Attending Note Name of Resident: Grant Caldera ATTENDING PHYSICIAN STATEMENT I saw and evaluated the patient. I reviewed the resident's note and discussed the case with the resident. I agree with the resident's findings and plan as documented. SUBJECTIVE: 26 yo F with pmhx. of Type IDDM, Recurrent DKA's, gastroparosis, and pancreatitis who presents with abdominal pain, nausea and vomiting X1 day. Was seen in ED yesterday, but presents today with persistant nausea and vomiting. States she has noted diffuse abdominal pain. Also, notes she felt "hot" and "cold" at home, but did not measure her temperature. No chest pain, pressure, or shortness of breath. OBJECTIVE: Physical: VS: Vital Signs Period Temp Pulse Resp BP Sys/Plata Pulse Ox Last 24 Hr 98.9 F 121 22 173/98 100 GEN: NAD, Resting in bed, AA0X3 HEENT:NCAT, PERRL, Throat without erythema or exudates CARD: RRR S1, S2 RESP: CTAB ABD: BSx4, Diffuse TTP all quadrants EXT: -C/C/E CBCD WBC 16.2 K/mm3 (4.0-10.0) H D 02/28/17 22:00 RBC 4.28 M/mm3 (3.60-5.2) 02/28/17 22:00 Hgb 12.9 GM/dL (10.7-15.3) 02/28/17 22:00 Hct 39.9 % (32.4-45.2) 02/28/17 22:00 MCV 93.4 fl (80-96) 02/28/17 22:00 MCHC 32.3 g/dl (32.0-36.0) 02/28/17 22:00 RDW 14.0 % (11.6-15.6) 02/28/17 22:00 Plt Count 167 K/MM3 (134-434) D 02/28/17 22:00 MPV 8.4 fl (7.5-11.1) 02/28/17 22:00 CMP Sodium 134 mmol/L (136-145) L 02/28/17 22:00 Potassium 4.3 mmol/L (3.5-5.1) 02/28/17 22:00 Chloride 97 mmol/L (98-107) L 02/28/17 22:00 Carbon Dioxide 23 mmol/L (21-32) 02/28/17 22:00 Anion Gap 14 (8-16) 02/28/17 22:00 BUN 9 mg/dL (7-18) D 02/28/17 22:00 Creatinine 0.8 mg/dL (0.55-1.02) 02/28/17 22:00 Creat Clearance w eGFR > 60 (>60) 02/28/17 22:00 Random Glucose 372 mg/dL (74-106) H* 02/28/17 22:00 Calcium 8.9 mg/dL (8.5-10.1) 02/28/17 22:00 Total Bilirubin 0.5 mg/dL (0.2-1.0) D 02/28/17 22:00 AST 11 U/L (15-37) L D 02/28/17 22:00 ALT 18 U/L (12-78) 02/28/17 22:00 Alkaline Phosphatase 136 U/L (45-117) H 02/28/17 22:00 Total Protein 7.2 g/dl (6.4-8.2) 02/28/17 22:00 Albumin 3.5 g/dl (3.4-5.0) 02/28/17 22:00 UA 02/27- negative CXR- Pending ASSESSMENT AND PLAN: 26 yo F with pmhx. of Type IDDM, Recurrent DKA's, gastroparosis, and pancreatitis who presents with abdominal pain, nausea and vomiting X1 day. She is being admitted for sepsis 1.) Sepsis - Uknown Etiology - Stat LA - Lopez Cx - IVF - FLU - Chest Xray/ UA negative (yesterday) - CT ABD 2.) Gastroparesis - Reglan - Zofran - Monitor QtC 3.)IDDM - RAISS - FS - Levemir 4.) Dvt Ppx - Low Risk - Heparin 5000 q8
--- NOTE | 2017-03-01 00:34 | HP ---
CHIEF COMPLAINT: Nausea , Vomiting, abdominal pain PCP: HISTORY OF PRESENT ILLNESS: This is 26 year old female with PMHx of IDDM , gatroparesis, DKA multipe times who presented to the hospital today due to N/V/Abdominal pain. The abdominal pain started 2 days ago , med epi-garstric, 08/15 , radiating to sides and her back, presented to ED yesterday and left AMA when she felt better. the pain today is 4-10 associated with sever nausea and non bloody vomitting X2 . . The pain improved with pain killer and worsen with any movement. She feels hot and cold, sweating, sore throat. She reports abdominal pain with fatty food. but denies any headache, chest pain,cough, palpitation,diarrhea , constipation or urinary symptoms. Denies any recent travel or sick contact. ER course was notable for: (1) CBC 16.2, 12.9/39.9, 167, CMP 134, 4.3, 97,23, 9/0.8, 372 (2)EKG sinus tachy (3) CXR Recent Travel:denies PAST MEDICAL HISTORY: IDDM , gatroparesis, DKA PAST SURGICAL HISTORY: None Social History: Smokin/2 pack since age of 15 Alcohol:denies Drugs: denies Family History: Allergies No Known Allergies Allergy (Verified 02/28/17 21:24) HOME MEDICATIONS: Home Medications Medication Instructions Recorded Insulin Lispro [Humalog] 0 unit SQ ASDIR 07/18/13 Amitriptyline HCl [Elavil -] 3 tab PO DAILY #0 06/27/15 Acetaminophen [Tylenol] 650 mg PO Q4H PRN #20 tablet 01/17/16 Metoclopramide HCl [Reglan] 10 mg PO Q6H PRN #15 tablet 01/17/16 Ranitidine HCl [Zantac] 150 mg PO BID PRN #20 tablet 01/17/16 Insulin Glargine,Hum.rec.anlog 60 unit SQ HS 12/08/16 [Kavithaaglcornell Cardozapen U-100] REVIEW OF SYSTEMS CONSTITUTIONAL: Absent: fever, chills, diaphoresis, generalized weakness, malaise, loss of appetite, weight change HEENT: Absent: rhinorrhea, nasal congestion, throat pain, throat swelling, difficulty swallowing, mouth swelling, ear pain, eye pain, visual changes CARDIOVASCULAR: Absent: chest pain, syncope, palpitations, irregular heart rate, lightheadedness , peripheral edema RESPIRATORY: Absent: cough, shortness of breath, dyspnea with exertion, orthopnea, wheezing, stridor, hemoptysis GASTROINTESTINAL: Absent: abdominal pain, abdominal distension, nausea, vomiting, diarrhea, constipation, melena, hematochezia GENITOURINARY: Absent: dysuria, frequency, urgency, hesitancy, hematuria, flank pain, genital pain MUSCULOSKELETAL: Absent: myalgia, arthralgia, joint swelling, back pain, neck pain SKIN: Absent: rash, itching, pallor HEMATOLOGIC/IMMUNOLOGIC: Absent: easy bleeding, easy bruising, lymphadenopathy, frequent infections ENDOCRINE: Absent: unexplained weight gain, unexplained weight loss, heat intolerance, cold intolerance NEUROLOGIC: Absent: headache, focal weakness or paresthesias, dizziness, unsteady gait, seizure, mental status changes, bladder or bowel incontinence PSYCHIATRIC: Absent: anxiety, depression, suicidal or homicidal ideation, hallucinations. PHYSICAL EXAMINATION Vital Signs - 24 hr 02/28/17 21:21 Temperature 98.9 F Pulse Rate 121 H Respiratory 22 Rate Blood Pressure 173/98 O2 Sat by Pulse 100 Oximetry (%) GENERAL: Awake, alert, and fully oriented, in no acute distress. HEAD: Normal with no signs of trauma. EYES: Pupils equal, round and reactive to light, sclera anicteric, conjunctiva clear. EARS, NOSE, THROAT: Ears normal, nares patent, Moist mucous membranes. NECK: Normal range of motion, supple without lymphadenopathy, JVD LUNGS: Breath sounds equal, clear to auscultation bilaterally. No wheezes, and no crackles. No accessory muscle use. HEART: sinus tachy, normal S1 and S2 without murmur, rub or gallop. ABDOMEN: Soft, diffuse tenderness, not distended, normoactive bowel sounds, no guarding, rebound tenderness, +Villalobos sign LOWER EXTREMITIES: 2+ pulses, warm, well-perfused. No calf tenderness. No peripheral edema. NEUROLOGICAL: good mentation. Normal speech. PSYCHIATRIC: Cooperative. Good eye contact. Appropriate mood and affect. SKIN: Warm, dry, no rashes or lesions noted, normal capillary refill. Laboratory Results - last 24 hr 02/28/17 02/28/17 02/28/17 22:00 22:00 22:00 WBC 16.2 H D RBC 4.28 Hgb 12.9 Hct 39.9 MCV 93.4 MCH 30.1 MCHC 32.3 RDW 14.0 Plt Count 167 D MPV 8.4 Neutrophils % 89.6 H Lymphocytes % 7.4 L D Monocytes % 2.6 L Eosinophils % 0.1 Basophils % 0.3 VBG pH 7.45 H POC VBG pCO2 33.4 L POC VBG pO2 60.8 H Mixed VBG HCO3 22.8 Sodium 134 L Potassium 4.3 Chloride 97 L Carbon Dioxide 23 Anion Gap 14 BUN 9 D Creatinine 0.8 Creat Clearance w eGFR > 60 Random Glucose 372 H* Calcium 8.9 Total Bilirubin 0.5 D AST 11 L D ALT 18 Alkaline Phosphatase 136 H Total Protein 7.2 Albumin 3.5 Lipase Acetone, Qual 02/28/17 22:00 WBC RBC Hgb Hct MCV MCH MCHC RDW Plt Count MPV Neutrophils % Lymphocytes % Monocytes % Eosinophils % Basophils % VBG pH POC VBG pCO2 POC VBG pO2 Mixed VBG HCO3 Sodium Potassium Chloride Carbon Dioxide Anion Gap BUN Creatinine Creat Clearance w eGFR Random Glucose Calcium Total Bilirubin AST ALT Alkaline Phosphatase Total Protein Albumin Lipase 46 L Acetone, Qual Positive small 1+ H CBC, BMP 02/28/17 22:00 02/28/17 22:00 CXR : No acute pathology EKG : NSR ASSESSMENT/PLAN: This is 26 year old female with PMHx of IDDM , gatroparesis, DKA multipe times who presented to the hospital today due to N/V/Abdominal pain and hyperglycemia .was admitted to med-surg for further evaluation. # sepsis * unknown resource , possible gallbladder vs gastritis * WBC 16.2 , tachycardic, tachypniec * CT abdomen/pelvic * CXR * Sputum , urine , blood cx * Ceftriaxone 1 mg daily , consider adding metronidazole vs azithromycin * F/U CT Abdomen, CXR * LA * # Gastroparesis 2/2 IDDM * Persistent nausea * Zofran 8mg TID PRN, max daiy dose 24 mg * Metoclopramide 10 mg QID PRN * Normal QTC * continue to monitor * Pepcid # IDDM * Glu 372 on admission * ISS * BGM Q4h * Levemir 30 units HS for now , (was taking 60 at home did not eat the whole day ) * consulted about diet modification and modified life style * consulted about short term and intermediate manager DM complications # Hyponatremia * NS 134 * Encourage oral intake * NS @ 100 CC /hr * #FEN * NS @ 100 CC/hr * E: monitor * low diabetic diet # Proph * SCDs both legs * GI : protonix 40 mg daily # Dispo * Admit to med-surg * full code Visit type - Emergency Visit Emergency Visit: Yes ED Registration Date: 03/01/17 Care time: The patient presented to the Emergency Department on the above date and was hospitalized for further evaluation of their emergent condition. - New Patient This patient is new to me today: Yes Date on this admission: 03/01/17 - Critical Care Critical Care patient: No
[2017-03-01] MEDS ORDERED: CEFTRIAXONE 1 GM/50 ML BAG IVPB ONE (00:38)
[2017-03-01] MEDS ORDERED: INSULIN DETEMIR 100 UNITS/ML MDV SQ SCH (01:30)
[2017-03-01] MEDS ORDERED: METOCLOPRAMIDE HCL 10 MG TABLET (FP) PO PRN (01:40)
[2017-03-01] MEDS ORDERED: RANITIDINE HCL 150 MG TABLET (FP) PO PRN (01:40)
[2017-03-01] MEDS ORDERED: ACETAMINOPHEN 325 MG TABLET (FP) PO PRN (01:40)
[2017-03-01] MEDS ORDERED: CEFTRIAXONE 1 GM/50 ML BAG ONE (02:42)
[2017-03-01] MEDS ORDERED: INSULIN DETEMIR 100 UNITS/ML MDV SQ ONE (02:42)
[2017-03-01] MEDS ORDERED: METOCLOPRAMIDE HCL INJECTION 10 MG/2 ML VIAL ONE (02:49)
[2017-03-01] MEDS ORDERED: ONDANSETRON 4 MG TABLET PO PRN ×2 (06:00)
[2017-03-01] MEDS ORDERED: INSULIN SLIDING SCALE (NOVOLOG) 1 VIAL SQ SCH (07:00)
[2017-03-01 08:28] LABS: ANION GAP 11 (8-16); BASO # 0.1 # (0.1-1); BASO % 0.5 % (0-2.0); BILIRUBIN,TOTAL 0.5 mg/dL (0.2-1.0); CALCIUM 7.7 mg/dL (8.5-10.1); CO2 21 mmol/L (21-32); CREATININE 0.5 mg/dL (0.55-1.02); EOS % 0.1 % (0-4.5); GLUCOSE,RANDOM 208 mg/dL (74-106); LYMPH # 3.2 (8-40); MCH 29.7 pg (25.7-33.7); MCHC 32.5 g/dl (32.0-36.0); MEAN CELL VOLUME 91.3 fl (80-96); MEAN PLT VOLUME 8.2 fl (7.5-11.1); MONO # 1.1 # (3.8-10.2); NEUT # 15.3 # (42.8-82.8); NEUT % 77.4 % (42.8-82.8); PLATELET COUNT 379 K/MM3 (134-434); RDW 13.9 % (11.6-15.6); SGOT/AST 7 U/L (15-37); SGPT/ALT 15 U/L (12-78); TOT PROT 6.1 g/dl (6.4-8.2); WHITE BLOOD COUNT 19.7 K/mm3 (4.0-10.0)
[2017-03-01 08:29] LABS: ALK PHOS 113 U/L (45-117)
[2017-03-01] MEDS ORDERED: CEFTRIAXONE 1 G/50 ML PREMIX 50 ML IVPB SCH (10:00)
[2017-03-01] MEDS ORDERED: METRONIDAZOLE 500 MG PREMIXED 500 MG/100 ML MG IVPB SCH (10:00)
[2017-03-01] MEDS ORDERED: AMITRIPTYLINE HCL 25 MG TABLET (FP) PO SCH (10:00)
[2017-03-01 10:19] VITALS: BP 131/94; PULSE 106; TEMP 97.4
--- NOTE | 2017-03-01 11:07 | DS ---
Physical Exam: SUBJECTIVE: Patient seen and examined. No acute events overnight. Pt reports no nausea, emesis, abdominal pain, diarrhea, constipation, chest pain, SOB, fevers, chills, dysuria or any other complaints. Pt wants to go home. OBJECTIVE: Vital Signs Period Temp Pulse Resp BP Sys/Plata Pulse Ox Last 24 Hr 97.4 F-98.9 F 89-121 18-22 131-173/68-98 98-100 PHYSICAL EXAM GENERAL: The patient is awake, alert, and fully oriented, in no acute distress. HEENT: NC, AT NECK: Trachea midline, full range of motion, supple. LUNGS: Breath sounds equal, clear to auscultation bilaterally, no wheezes, no crackles, no accessory muscle use. HEART: Regular rate and rhythm, S1, S2 without murmur, rub or gallop. ABDOMEN: Soft, nontender, nondistended, normoactive bowel sounds, no guarding, no rebound, no hepatosplenomegaly, no masses. EXTREMITIES: 2+ pulses, warm, well-perfused, no edema. NEUROLOGICAL: Cranial nerves II through XII grossly intact. Normal speech, gait not observed. LABS Laboratory Results - last 24 hr 02/28/17 02/28/17 02/28/17 22:00 22:00 22:00 WBC 16.2 H D RBC 4.28 Hgb 12.9 Hct 39.9 MCV 93.4 MCH 30.1 MCHC 32.3 RDW 14.0 Plt Count 167 D MPV 8.4 Neutrophils % 89.6 H Lymphocytes % 7.4 L D Monocytes % 2.6 L Eosinophils % 0.1 Basophils % 0.3 VBG pH 7.45 H POC VBG pCO2 33.4 L POC VBG pO2 60.8 H Mixed VBG HCO3 22.8 Sodium 134 L Potassium 4.3 Chloride 97 L Carbon Dioxide 23 Anion Gap 14 BUN 9 D Creatinine 0.8 Creat Clearance w eGFR > 60 POC Glucometer Random Glucose 372 H* Lactic Acid Calcium 8.9 Total Bilirubin 0.5 D AST 11 L D ALT 18 Alkaline Phosphatase 136 H Total Protein 7.2 Albumin 3.5 Total Amylase Lipase Acetone, Qual 02/28/17 03/01/17 03/01/17 22:00 03:48 07:00 WBC RBC Hgb Hct MCV MCH MCHC RDW Plt Count MPV Neutrophils % Lymphocytes % Monocytes % Eosinophils % Basophils % VBG pH POC VBG pCO2 POC VBG pO2 Mixed VBG HCO3 Sodium Potassium Chloride Carbon Dioxide Anion Gap BUN Creatinine Creat Clearance w eGFR POC Glucometer Random Glucose Lactic Acid 0.9 Calcium Total Bilirubin AST ALT Alkaline Phosphatase Total Protein Albumin Total Amylase 46 Lipase 46 L Acetone, Qual Positive small 1+ H 03/01/17 03/01/17 03/01/17 07:00 07:00 07:05 WBC 19.7 H RBC 3.83 Hgb 11.4 D Hct 35.0 MCV 91.3 MCH 29.7 MCHC 32.5 RDW 13.9 Plt Count 379 D MPV 8.2 Neutrophils % 77.4 Lymphocytes % 16.4 D Monocytes % 5.6 D Eosinophils % 0.1 Basophils % 0.5 VBG pH POC VBG pCO2 POC VBG pO2 Mixed VBG HCO3 Sodium 133 L Potassium 3.9 Chloride 101 Carbon Dioxide 21 Anion Gap 11 BUN 8 Creatinine 0.5 L D Creat Clearance w eGFR > 60 POC Glucometer 235 Random Glucose 208 H D Lactic Acid Calcium 7.7 L Total Bilirubin 0.5 AST 7 L D ALT 15 Alkaline Phosphatase 113 Total Protein 6.1 L Albumin 3.0 L Total Amylase Lipase 44 L Acetone, Qual CXR: no acute pathology CT abd report: pending HOSPITAL COURSE: Date of Admission:03/01/17 Date of Discharge: 03/01/17 26F w/ hx of IDDM, gastroparesis, and DKA who presented with nausea, emesis, and abdominal pain and found to have sepsis (leukocytosis, tachycardia, tachypnea) and hyperglycemia. Pt treated with IV abx, insulin, and anti- emetics. Pt was miller-cultured. Today, leukocytosis increased to 19.7 from 16.2. Today, pt feels subjectively better without complaints. However, it is uncertain if she has an infection, and if so, where it is from. PATIENT ADAMANTLY REFUSES HOSPITALIZATION AND WANTS TO LEAVE AGAINST MEDICAL ADVICE. I EXPLAINED TO PATIENT THAT AGAINST MEDICAL ADVICE IS DANGEROUS AND CAN LEAD TO WORSENING OF CONDITION, PERMANENT DISABILITY, AND EVEN . I USED LAY TERMINOLOGY. I ANSWERED ALL QUESTIONS. ITS CLEAR TO ME THAT SHE UNDERSTANDS THE RISKS AND BENEFITS OF CONTINUOUS HOSPITAL STAY AND LEAVING AGAINST MEDICAL ADVISE. SHE HAS THE CAPACITY TO MAKE HIS/HER OWN DECISIONS. SHE AGREES TO FOLLOW UP WITH HER PRIMARY MEDICAL DOCTOR TOMORROW AND RETURN TO THE EMERGENCY DEPARTMENT IF SYMPTOMS WORSEN. 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 You were treated with IV antibiotics, insulin, and anti-emetics. Your white blood cell count is increasing, and we don't know if you have an infection, and if so, where it is coming from. We recommend that you stay in the hospital until we can properly diagnose and treat you. However, you signed out against medical advice. Return to the ED if you develop any worsening symptoms or new concerning symptoms such as chest pain or shortness of breath. If you don't return to the ED: 1. Follow up with your PCP within several days. If you don't have one, we have referred you to Dr. Serrano. 2. Follow up with endocrinology, Dr. Stewart. Referrals: STAFF,NOT ON [Primary Care Provider] - Luis Miguel Serrano MD [Staff Physician] - Terry Rasheed MD [Staff Physician] - Disposition: AGAINST MEDICAL ADVICE - Home Medications Comprehensive Discharge Medication List: Ambulatory Orders Insulin Lispro [Humalog] 0 unit SQ ASDIR 07/18/13 Amitriptyline HCl [Elavil -] 3 tab PO DAILY #0 06/27/15 Acetaminophen [Tylenol] 650 mg PO Q4H PRN #20 tablet 01/17/16 Metoclopramide HCl [Reglan] 10 mg PO Q6H PRN #15 tablet 01/17/16 Ranitidine HCl [Zantac] 150 mg PO BID PRN #20 tablet 01/17/16 Insulin Glargine,Hum.rec.anlog [Basaglar Isabellaikpen U-100] 60 unit SQ HS 12/08/16 This patient is new to me today: Yes Date on this admission: 03/01/17 Emergency Visit: Yes ED Registration Date: 03/01/17 Care time: The patient presented to the Emergency Department on the above date and was hospitalized for further evaluation of their emergent condition. Critical Care patient: No - Discharge Referral Referred to [facility] Med P.C.: No
--- NOTE | 2017-03-01 11:14 | PN ---
Teaching Attending Note Name of Resident: Omid Valadez ATTENDING PHYSICIAN STATEMENT I saw and evaluated the patient. I reviewed the resident's note and discussed the case with the resident. I agree with the resident's findings and plan as documented. Patient is refusing treatment. wants to sign Against medical advice, refusing all the antibiotics. Patient was explained the risk, sepsis, septic shock, coma and . is willing to take all the risk. States that if she doesn't feel well tonight , will come back. Vital Signs Temperature 97.4 F L 03/01/17 10:18 Pulse Rate 106 H 03/01/17 10:18 Respiratory Rate 20 03/01/17 10:18 Blood Pressure 131/94 03/01/17 10:18 O2 Sat by Pulse Oximetry (%) 99 03/01/17 06:05
--- NOTE | 2017-03-01 15:26 | EKG ---
Test Reason : Blood Pressure : / mmHG Vent. Rate : 110 BPM Atrial Rate : 110 BPM P-R Int : 142 ms QRS Dur : 068 ms QT Int : 334 ms P-R-T Axes : 044 006 015 degrees QTc Int : 452 ms SINUS TACHYCARDIA CANNOT RULE OUT ANTERIOR INFARCT (CITED ON OR BEFORE 05-NOV-2016) ABNORMAL ECG WHEN COMPARED WITH ECG OF 27-FEB-2017 13:26, NONSPECIFIC T WAVE ABNORMALITY NOW EVIDENT IN ANTERIOR LEADS Confirmed by CAROLINA MORALES MD ([id number]) on 03/01/2017 3:26:03 PM Referred By: Confirmed By:CAROLINA MORALES MD
--- NOTE | 2017-03-02 07:56 | PDOC ---
Patient Follow-up (Call Back) - Post ED Follow - Up Condition at time of discharge: Fair Disposition at time of original discharge: AGAINST MEDICAL ADVICE Reason for Call Back: Abnwl. Microbiology (Urine preliminary report shows lactose fermenting negative bacilli greater than 100,000. Patient apparently signed out AMA yesterday and was recommended to be given antibiotics but was refusing at the time. Patient also is a diabetic which based on her blood work is not well controlled. Spoke to the grandfather and will attempt to contact her at [phone]. Spoke to the patient [place] and will go to [facility] on [facility] to start Macrobid. In the meanwhile, will await final report)
== END 2017-03-01 12:10 | disposition left against medical advice (07) | DRG 720 ==
LOC: JER 21:03 → SUPCPDRO 21:03 → JERBED 03-01 00:38 → OBSVTOIN 03-01 01:16 → J8W 03-01 06:50
PROVIDERS: ADMIT Internal Medicine; ATTEND Internal Medicine
DX: A41.9 Sepsis, unspecified organism (principal); E10.43 Type 1 diabetes mellitus with diabetic autonomic (poly)neuropathy; E10.65 Type 1 diabetes mellitus with hyperglycemia; K31.84 Gastroparesis; Z79.4 Long term (current) use of insulin; E10.618 Type 1 diabetes mellitus with other diabetic arthropathy; E87.1 Hypo-osmolality and hyponatremia
CPT/HCPCS: 36415; 71020-TC; 74177-TC; 80053; 82009; 82150; 82803; 83605; 83690; 85025; 87040; 87086; 87186; 87804; 93005; 93010; 99283-25; G0378

== ENCOUNTER 2017-08-03 21:33 | Inpatient (IN) | payer OTHER ==
--- NOTE | 2017-08-03 22:05 | PDOC ---
History of Present Illness - History of Present Illness Initial Comments: Patient is a 27F, with PMHx of type 1 IDDM, gastroparesis, and multiple episodes of DKA, who was BIBA and presents today with elevated blood sugar. Patient states that her blood glucose was around 433. She also endorses nausea, vomiting, chest pain (burning). She states that she believes that she may have a UTI because she noticed that her urine has a foul odor and is very dark in color. She denies fever, but states she does feel hot&cold. She denies recent, SOB, diarrhea. 08/03/17 23:59 08/04/17 00:12 <Suyapa Riggs - Last Filed: 08/04/17 00:12> - General History Source: Patient Exam Limitations: No Limitations <Brandi Donaldson - Last Filed: 08/04/17 02:31> - General Chief Complaint: Blood Sugar Problem Stated Complaint: DIABETIC EMERGENCY Time Seen by Provider: 08/03/17 22:05 Past History <Suyapa Riggs - Last Filed: 08/04/17 00:12> - Past Medical History Anemia: No Asthma: No Cancer: No Cardiac Disorders: No CVA: No COPD: No CHF: No Dementia: No Diabetes: Yes GI Disorders: Yes (gastroparesis) Disorders: No HTN: No Hypercholesterolemia: No Liver Disease: No Psychiatric Problems: Yes (ANXIETY DEPRESSION) Seizures: No Thyroid Disease: No - Surgical History Abdominal Surgery: No Appendectomy: No Cardiac Surgery: No Cholecystectomy: No Lung Surgery: No Neurologic Surgery: No Orthopedic Surgery: No - Family Disease History Family Disease History: Diabetes: Grandparents (great-grandmother) - Immunization History Immunization Up to Date: Yes - Suicide/Smoking/Psychosocial Hx Smoking Status: No Smoking History: Never smoked Have you smoked in the past 12 months: Yes Number of Cigarettes Smoked Daily: 10 'Breaking Loose' booklet given: 01/14/17 Hx Alcohol Use: No Drug/Substance Use Hx: No Substance Use Type: None Hx Substance Use Treatment: No <Brandi Donaldson - Last Filed: 08/04/17 02:31> - Past Medical History Allergies/Adverse Reactions: Allergies Allergy/AdvReac Type Severity Reaction Status Date / Time No Known Allergies Allergy Verified 02/28/17 21:24 Home Medications: Ambulatory Orders Insulin Lispro [Humalog] 0 unit SQ ASDIR 07/18/13 Amitriptyline HCl [Elavil -] 3 tab PO DAILY #0 06/27/15 Acetaminophen [Tylenol] 650 mg PO Q4H PRN #20 tablet 01/17/16 Metoclopramide HCl [Reglan] 10 mg PO Q6H PRN #15 tablet 01/17/16 Ranitidine HCl [Zantac] 150 mg PO BID PRN #20 tablet 01/17/16 Insulin Glargine,Hum.rec.anlog [Basaglar Kwikpen U-100] 60 unit SQ HS 12/08/16 Nitrofurantoin Monohyd/M-Cryst [Macrobid -] 100 mg PO BID #14 capsule 03/02/17 Review of Systems - Review of Systems Comments:: GENERAL/CONSTITUTIONAL: +chills No: fever, loss of appetite. HEAD, EYES, EARS, NOSE AND THROAT: No: change in vision, ear pain, discharge, sore throat, throat swelling. CARDIOVASCULAR: +chest burning No: lightheadedness, palpitations, syncope RESPIRATORY: No: cough, shortness of breath, wheezing, hemoptysis, stridor. GASTROINTESTINAL: + nausea, vomiting, abdominal cramping, No: diarrhea, rectal bleeding, constipation. GENITOURINARY: + foul smelling, dark-colored urine. No: dysuria, hematuria, frequency, urgency, flank pain. MUSCULOSKELETAL: No: back pain, neck pain, joint pain, muscle swelling or pain SKIN: No: lesions, pallor, rash or easy bruising. NEUROLOGIC: No: headache, vertigo, paresthesias, weakness ENDOCRINE: +elevated blood sugar No: unexplained weight gain or loss HEMATOLOGIC/LYMPHATIC: No: anemia, easy bleeding, swelling nodes 08/03/17 23:59 <Suyapa Riggs - Last Filed: 08/04/17 00:12> *Physical Exam - Vital Signs Last Vital Signs Temp Pulse Resp BP Pulse Ox 98.1 F 118 H 20 169/97 100 08/03/17 22:00 08/03/17 22:00 08/03/17 22:00 08/03/17 22:00 08/03/17 22:00 - Physical Exam Comments: GENERAL: The patient looks uncomfortable. HEAD: Normal with no signs of trauma. EYES: PERRLA, EOMI, sclera anicteric, conjunctiva clear. ENT: Ears normal, nares patent, oropharynx clear without exudates. Dry mucous membranes. NECK: Normal range of motion, supple without lymphadenopathy, JVD, or masses. LUNGS: Breath sounds equal, clear to auscultation bilaterally. No wheezes, and no crackles. HEART:Tachycardic. Regular rate and rhythm, normal S1 and S2 without murmur, rub or gallop. ABDOMEN: Soft, mid-epigastric tenderness, no lower abdominal tenderness, normoactive bowel sounds. No guarding, no rebound. EXTREMITIES: Normal range of motion, no edema. No clubbing or cyanosis. No erythema, or tenderness. NEUROLOGICAL: Cranial nerves II through XII grossly intact. Normal speech. No focal neurological deficits. MUSCULOSKELETAL: Back nontender to palpation, no CVA tenderness SKIN: Warm, Dry, normal turgor, no rashes or lesions noted. <Suyapa Riggs - Last Filed: 08/04/17 00:12> ED Treatment Course - LABORATORY CBC & Chemistry Diagram: 08/04/17 00:13 08/04/17 00:13 <Brandi Donaldson - Last Filed: 08/04/17 02:31> Medical Decision Making - Medical Decision Making 08/04/17 01:04 Ms Lopez is a 27-year-old female who presents emergency department with a complaint of abdominal pain, intractable vomiting. Symptoms have been present for several days. No associated fevers noted. She reports upper abdominal pain which she describes as burning. She notes pain in her chest as well, subsequent to repeated episodes of vomiting. No diarrhea. Patient unable to tolerate by mouth. She has noted concentrated malodorous urine Patient has had recurrent admissions to hospital due to DKA, hyperglycemia. Patient's presentation seems to be consistent with this. Possibly propelled into DKA due to urinary tract infection as patient states her urine is malodorous. Patient has a compliant with her hypoglycemic medications Laboratory Tests 08/03/17 08/04/17 23:30 00:13 WBC 21.3 H Hgb 14.6 D Hct 43.9 D Plt Count 480 H D Urine Color Straw Urine Appearance Slcloudy Urine Ketones 2+ H Urine Blood 1+ H Ur Leukocyte Esterase 3+ H Urinalysis is positive. Review of patient's prior micro-reveals sensitive Escherichia coli Will give ceftriaxone 08/04/17 02:28 Pt became more tachycardiac and more short of breath EKG: Sinus tachycardia rate of 128bpm, axis nml, no st elevations or depressions <Brandi Donaldson - Last Filed: 08/04/17 02:31> *DC/Admit/Observation/Transfer - Attestations Scribe Attestion: 08/04/17 00:08 Documentation prepared by Suyapa Rgigs, acting as medical appointment scheduler for Brandi Donaldson MD. <Suyapa Riggs - Last Filed: 08/04/17 00:12> - Discharge Dispostion Decision to Admit order: Yes <Brandi Donaldson - Last Filed: 08/04/17 02:31> Diagnosis at time of Disposition: Hyperglycemia UTI (urinary tract infection) Qualifiers: Urinary tract infection type: acute cystitis Hematuria presence: without hematuria Qualified Code(s): N30.00 - Acute cystitis without hematuria - Discharge Dispostion Condition at time of disposition: Stable - Referrals Referrals: Clare Acevedo MD [Primary Care Provider] -
[2017-08-03] MEDS ORDERED: SODIUM CHLORIDE 1,000 ML IV STA ×2 (22:06→22:41)
[2017-08-03 22:13] VITALS: BMI 28.3
[2017-08-03] MEDS ORDERED: ONDANSETRON 4 MG/2 ML VIAL IVPB ONE (22:40)
[2017-08-03] MEDS ORDERED: ACETAMINOPHEN 1000 MG/100 ML VIAL (NON FORMULARY) IVPB ONE (22:41)
[2017-08-03] MEDS ORDERED: ONDANSETRON 4 MG/2 ML VIAL ONE (23:37)
[2017-08-03] MEDS ORDERED: FAMOTIDINE 20 MG/50 ML IVPB 20 MG/50 ML MG IVPB ONE (23:37)
[2017-08-03] MEDS ORDERED: ACETAMINOPHEN INJECTION 100 ML IVPB ONE (23:52)
[2017-08-04 00:27] LABS: URINE APPEARANCE SLCLOUDY; URINE BILIRUBIN NEGATIVE (<2.0 mg/dL); URINE COLOR STRAW; URINE GLUCOSE (UA) 3+ (NEGATIVE); URINE KETONE 2+ (NEGATIVE); URINE NITRITE NEGATIVE (NEGATIVE); URINE UROBILINOGEN NEGATIVE mg/dL (0.2-1.0)
[2017-08-04 00:33] LABS: URINE LEUK ESTERASE 3+ (NEGATIVE); URINE PROTEIN 2+ (NEGATIVE)
[2017-08-04 00:33] LABS: HEMATOCRIT 43.9 % (32.4-45.2); HEMOGLOBIN 14.6 GM/dL (10.7-15.3); MCH 31.3 pg (25.7-33.7); MCHC 33.3 g/dl (32.0-36.0); MEAN CELL VOLUME 93.9 fl (80-96); MEAN PLT VOLUME 8.5 fl (7.5-11.1); PLATELET COUNT 480 K/MM3 (134-434); RBC 4.68 M/mm3 (3.60-5.2); WHITE BLOOD COUNT 21.3 K/mm3 (4.0-10.0)
[2017-08-04] MEDS ORDERED: ONDANSETRON 4 MG/2 ML VIAL IVPUSH ONE (00:42)
[2017-08-04] MEDS ORDERED: ONDANSETRON 4 MG/2 ML VIAL ONE ×3 (00:43→10:08)
[2017-08-04 00:54] LABS: ALBUMIN 3.6 g/dl (3.4-5.0); ANION GAP 16 (8-16); BLOOD UREA NITROGEN 14 mg/dL (7-18); CHLORIDE 93 mmol/L (98-107); CO2 23 mmol/L (21-32); LIPASE 44 U/L (73-393); SODIUM 132 mmol/L (136-145); TOT PROT 7.8 g/dl (6.4-8.2)
[2017-08-04 00:55] LABS: EPI CELLS MODERATE /HPF (FEW); URINE MUCUS RARE
[2017-08-04 00:59] LABS: ALK PHOS 134 U/L (45-117); SGPT/ALT 16 U/L (12-78)
[2017-08-04] MEDS ORDERED: CEFTRIAXONE 1 GM in DEXTROSE 5%-WATER - 50 ML IVPB ONE (01:06)
[2017-08-04 01:13] LABS: POTASSIUM 4.8 mmol/L (3.5-5.1)
[2017-08-04 01:14] LABS: SGOT/AST 20 U/L (15-37)
[2017-08-04 01:16] LABS: GLUCOSE,RANDOM 487 mg/dL (74-106)
[2017-08-04] MEDS ORDERED: INSULIN REGULAR HUMAN 100 UNITS/ML *VIAL IVPUSH ONE (01:23)
[2017-08-04 01:39] LABS: ACETONE SERUM POSITIVE LARGE 3+ (NEGATIVE)
[2017-08-04] MEDS ORDERED: CEFTRIAXONE 1 GM/50 ML BAG ONE ×2 (01:48→20:27)
[2017-08-04] MEDS ORDERED: INSULIN REGULAR HUMAN 100 UNITS/ML *VIAL ONE ×2 (01:49→14:57)
[2017-08-04] MEDS ORDERED: MAG HYDROX/AL HYDROX/SIMETH 30 ML UNIT-DOSE CUP PO ONE (02:30)
--- NOTE | 2017-08-04 02:33 | HP ---
CHIEF COMPLAINT: dysuria, vomiting, Ager Tender:Dr. Andrew Ennis, sees him monthly PCP: , but has not seen dr in 1-2yrs HISTORY OF PRESENT ILLNESS: 27 yr old woman with uncontrolled IDDM on insulin, HTN, gastroparesis, hx of recurrent UTI's, multiple episodes of DKA presents with 1 day of foul smelling urine a.w 4 episodes of watery-bilious nonbloody emesis over past 2 days. BGM's have been ranging from 100-300's. she has not been eating as per her usual due to acid reflux symptoms and loss of appetite but has been taking her medications as indicated. has been UTI-free for past 6 months, denies abx use in last 6 months. denies fevers, chest pain, sob, hematochezia, diarrhea, constipation. ER course was notable for: (1)lactate 2.4 (2) cxy clear (3) EKG - sinus tachy Recent Travel: none PAST MEDICAL HISTORY: IDDM HTN gastroparesis UTI's multiple episodes of DKA PAST SURGICAL HISTORY: denies Social History: Smoking: current everyday smoker Alcohol: denies Drugs: denies Family History: denies family hx of DM, HTN, cancer Allergies No Known Allergies Allergy (Verified 02/28/17 21:24) HOME MEDICATIONS: Home Medications Medication Instructions Recorded Insulin Lispro [Humalog] 0 unit SQ ASDIR 07/18/13 Amitriptyline HCl [Elavil -] 3 tab PO DAILY #0 06/27/15 Acetaminophen [Tylenol] 650 mg PO Q4H PRN #20 tablet 01/17/16 Metoclopramide HCl [Reglan] 10 mg PO Q6H PRN #15 tablet 01/17/16 Ranitidine HCl [Zantac] 150 mg PO BID PRN #20 tablet 01/17/16 Insulin Glargine,Hum.rec.anlog 60 unit SQ HS 12/08/16 [Basaglar Kwikpen U-100] Nitrofurantoin Monohyd/M-Cryst 100 mg PO BID #14 capsule 03/02/17 [Macrobid -] REVIEW OF SYSTEMS CONSTITUTIONAL: Present:loss of appetite,malaise, Absent: fever, chills, diaphoresis, generalized weakness, weight change HEENT: Absent: rhinorrhea, nasal congestion, throat pain, throat swelling, difficulty swallowing, mouth swelling, visual changes CARDIOVASCULAR: Absent: chest pain, syncope, palpitations, irregular heart rate, lightheadedness , peripheral edema RESPIRATORY: Absent: cough, shortness of breath, dyspnea with exertion, orthopnea, wheezing, stridor, hemoptysis GASTROINTESTINAL: Present:abdominal pain, nausea, vomiting, Absent: abdominal distension, diarrhea, constipation, melena, hematochezia GENITOURINARY: Present:dysuria, Absent: frequency, urgency, hesitancy, hematuria, flank pain, genital pain MUSCULOSKELETAL: Absent: myalgia, arthralgia, joint swelling, back pain, neck pain SKIN: Absent: rash, itching, pallor HEMATOLOGIC/IMMUNOLOGIC: Absent: easy bleeding, easy bruising, lymphadenopathy, frequent infections ENDOCRINE: Absent: unexplained weight gain, unexplained weight loss, heat intolerance, cold intolerance NEUROLOGIC: Absent: headache, focal weakness or paresthesias, dizziness, unsteady gait, seizure, mental status changes, bladder or bowel incontinence PHYSICAL EXAMINATION Vital Signs - 24 hr 08/03/17 08/04/17 22:00 00:51 Temperature 98.1 F 98.6 F Pulse Rate 118 H Pulse Rate [ 120 H Right Apical] Respiratory 20 25 H Rate Blood Pressure 169/97 Blood Pressure 156/99 [Left Arm] O2 Sat by Pulse 100 99 Oximetry (%) GENERAL: Awake, alert, and fully oriented, in no acute distress. HEAD: Normal with no signs of trauma. EYES: Pupils equal, round and reactive to light, extraocular movements intact, sclera anicteric, conjunctiva clear. No lid lag. EARS, NOSE, THROAT: Ears normal, nares patent, oropharynx clear without exudates. Moist mucous membranes. no thrush NECK: Normal range of motion, supple without lymphadenopathy, JVD, or masses. LUNGS: Breath sounds equal, clear to auscultation bilaterally. No wheezes, and no crackles. No accessory muscle use. HEART: Regular rate and rhythm, normal S1 and S2 without murmur, rub or gallop. ABDOMEN: Soft, +tender in epigastrium, not distended, normoactive bowel sounds, no guarding, no rebound, no masses. No hepatomegaly or splenomegaly. MUSCULOSKELETAL: Normal range of motion at all joints. No bony deformities or tenderness. No CVA tenderness. UPPER EXTREMITIES: 2+ radial pulses, warm, well-perfused. No cyanosis. No clubbing. No peripheral edema. LOWER EXTREMITIES: 2+ dp pulses, warm, well-perfused. No calf tenderness. No peripheral edema. NEUROLOGICAL: Cranial nerves II-XII intact. Normal speech. facial symmetry PSYCHIATRIC: Cooperative. Good eye contact. Appropriate mood and affect. SKIN: Warm, dry, normal turgor, no rashes or lesions noted, normal capillary refill. Laboratory Results - last 24 hr 08/03/17 08/04/17 08/04/17 23:30 00:13 00:13 WBC 21.3 H RBC 4.68 D Hgb 14.6 D Hct 43.9 D MCV 93.9 MCH 31.3 MCHC 33.3 RDW 13.0 Plt Count 480 H D MPV 8.5 Total Counted 100 Neutrophils % No Result Required. Neutrophils % (Manual) 88.0 H Lymphocytes % No Result Required. Lymphocytes % (Manual) 9.0 D Monocytes % (Manual) 3 L Nucleated RBC % 0 Sodium 132 L Potassium 4.8 Chloride 93 L Carbon Dioxide 23 Anion Gap 16 BUN 14 Creatinine 1.0 Creat Clearance w eGFR > 60 Random Glucose 487 H* Calcium 10.0 Total Bilirubin 1.0 D AST 20 ALT 16 Alkaline Phosphatase 134 H Total Protein 7.8 Albumin 3.6 Lipase 44 L Serum , Qual Urine Color Straw Urine Appearance Slcloudy Urine pH 6.0 Ur Specific [place] 1.029 Urine Protein 2+ H Urine Glucose (UA) 3+ H Urine Ketones 2+ H Urine Blood 1+ H Urine Nitrite Negative Urine Bilirubin Negative Urine Urobilinogen Negative Ur Leukocyte Esterase 3+ H Urine WBC (Auto) 165 Urine RBC (Auto) 2 Ur Epithelial Cells Moderate Urine Mucus Rare Acetone, Qual Positive large 3+ H 08/04/17 00:13 WBC RBC Hgb Hct MCV MCH MCHC RDW Plt Count MPV Total Counted Neutrophils % Neutrophils % (Manual) Lymphocytes % Lymphocytes % (Manual) Monocytes % (Manual) Nucleated RBC % Sodium Potassium Chloride Carbon Dioxide Anion Gap BUN Creatinine Creat Clearance w eGFR Random Glucose Calcium Total Bilirubin AST ALT Alkaline Phosphatase Total Protein Albumin Lipase Serum , Qual Negative Urine Color Urine Appearance Urine pH Ur Specific [place] Urine Protein Urine Glucose (UA) Urine Ketones Urine Blood Urine Nitrite Urine Bilirubin Urine Urobilinogen Ur Leukocyte Esterase Urine WBC (Auto) Urine RBC (Auto) Ur Epithelial Cells Urine Mucus Acetone, Qual Active Medications Acetaminophen (Tylenol -) 650 mg PO Q4H PRN PRN Reason: Pain Amitriptyline HCl (Elavil -) mg PO DAILY [facility] Enoxaparin Sodium (Lovenox -) 40 mg SQ DAILY [facility] Sodium Chloride (Normal Saline -) 1,000 mls @ 125 mls/hr IV ASDIR KARLENE Ceftriaxone Sodium 1 gm/ (Dextrose) 100 mls @ 200 mls/hr IVPB Q24H [facility]; Protocol Insulin Aspart (Novolog Vial Sliding Scale -) 1 vial SQ ACHS K[facility]; Protocol Ranitidine HCl (Zantac -) 150 mg PO BID PRN PRN Reason: Abdominal Pain ASSESSMENT/PLAN: 27 yr old woman with DM, HTN, hx of UTI's presents with dysuria admitted for sepsis due to UTI - will need to have medications reconciled - nausea/vomiting likely due to sepsis/hyperglycemia #sepsis due to UTI with lactic acidosis - ucx hx of e.coli sensitive to rocephin, pt stared on rocephin in ED, continue 1gm IVPB q24hr - lactic acid of 2.4, started on NS IVF, repeat pending - blood cx drawn after rocephin given #DM - uncontrolled with hyperglycemia, likely elevated due to infectious process - NISS and BGM ACHS - check A1c - pt on baseglor 50units qd and glargine sliding scale 18-20units at home, currently NISS is standard, may need to uptrite/add long-acting once pt condition stabilizes # gastroparesis/GERD - zantac 150mg po BID prn #smoking cessation - offered nicotine path, pt declined - offer cessation materialsupon dc #DVT prophylaxis: lovenox 40sq #Diet: low Na/diabetic clear diet for now, advance as tolerated due to nausea/ vomiting #offered HIV testing, says she was tested 6mo ago and was negative, declined testing today. #code status: full code, verbally designated to me that she would want her to be her HCP. Visit type - Emergency Visit Emergency Visit: Yes ED Registration Date: 08/04/17 Care time: The patient presented to the Emergency Department on the above date and was hospitalized for further evaluation of their emergent condition. - New Patient This patient is new to me today: Yes Date on this admission: 05/30/18 - Critical Care Critical Care patient: No Hospitalist Screening - Colonoscopy Questionnaire Colonoscopy Questionnaire: Colonoscopy Questionnaire - Patient: 50 - 75 years old and never had a screening colonoscopy: Unknown History of colon or rectal polyps, or CA: Unknown History of IBD, Crohn's disease or UC: Unknown History of abdominal radiation therapy as a child: Unknown - Relative: 1 with colon or rectal CA, or polyps at age 60 or younger: Unknown Colon or rectal CA diagnosed at age 45 or younger: Unknown Multiple relatives with colon or rectal CA: Unknown - Outcome: Screening Result: Negative Screen
[2017-08-04] MEDS ORDERED: FAMOTIDINE 20 MG/50 ML IVPB 20 MG/50 ML MG IVPB ONE (02:45)
[2017-08-04] MEDS ORDERED: ACETAMINOPHEN 325 MG TABLET (FP) PO PRN ×2 (03:31→05:37)
--- NOTE | 2017-08-04 04:03 | PN ---
Teaching Attending Note Name of Resident: Lupe Valenzuela ATTENDING PHYSICIAN STATEMENT I saw and evaluated the patient. I reviewed the resident's note and discussed the case with the resident. I agree with the resident's findings and plan as documented. SUBJECTIVE: Patient is a 27 year old woman with past medical history of type 1 IDDM, gastroparesis, and multiple episodes of DKA and E.coli UTI, who presented with foul smelling urine and elevated blood sugar. Patient states that her blood glucose was around 433. She also has nausea, vomiting, and epigastric pain. OBJECTIVE: Alert, obese and in no acute respiratory distress Vital Signs Period Temp Pulse Resp BP Sys/Plata Pulse Ox Last 24 Hr 98.1 F-98.6 F 118-120 20-25 156-169/97-99 99-100 HEENT: No Jaundice, eye redness or discharge, PERRLA, EOMI. Normocephalic, atraumatic. External ears are normal and hearing is grossly intact. No nasal discharge. Neck: Supple, nontender. No palpable adenopathy or thyromegaly. No JVD Chest: Good effort. Clear to auscultation and percussion. Heart: Regular. No S3, rub or murmur Abdomen: Not distended, soft; mild epigastric tenderness and no HSM. No rebound or guarding. Normoactive bowel sounds. Ext: Peripheral pulses intact. No leg edema. Skin: Warm and dry. No petechiae, rash or ecchymosis. Neuro: Alert. Oriented x3. CN 2-12 grossly intact. Sensation grossly intact in all four extremities and DTR are symmetric. Current Medications Generic Name Dose Route Start Last Admin Trade Name Freq PRN Reason Stop Dose Admin Acetaminophen 650 mg 08/04/17 03:31 Tylenol - PO Q4H PRN Pain Amitriptyline HCl 75 mg 08/04/17 22:00 Elavil - PO HS KARLENE Enoxaparin Sodium 40 mg 08/04/17 10:00 Lovenox - SQ DAILY KARLENE Sodium Chloride 1,000 mls @ 125 mls/hr 08/04/17 02:30 Normal Saline - IV ASDIR KARLENE Ceftriaxone Sodium 1 gm/ 100 mls @ 200 mls/hr 08/05/17 01:49 Dextrose IVPB Q24H [facility] Protocol Insulin Aspart 1 vial 08/04/17 07:00 Novolog Vial Sliding Scale - SQ ACHS KARLENE Protocol Ranitidine HCl 150 mg 08/04/17 03:31 Zantac - PO BID PRN Abdominal Pain Home Medications Medication Instructions Recorded Insulin Lispro [Humalog] 0 unit SQ ASDIR 07/18/13 Amitriptyline HCl [Elavil -] 3 tab PO DAILY #0 06/27/15 Acetaminophen [Tylenol] 650 mg PO Q4H PRN #20 tablet 01/17/16 Metoclopramide HCl [Reglan] 10 mg PO Q6H PRN #15 tablet 01/17/16 Ranitidine HCl [Zantac] 150 mg PO BID PRN #20 tablet 01/17/16 Insulin Glargine,Hum.rec.anlog 60 unit SQ HS 12/08/16 [Basaglar Kwikpen U-100] Nitrofurantoin Monohyd/M-Cryst 100 mg PO BID #14 capsule 03/02/17 [Macrobid -] Abnormal Lab Results 08/03/17 08/04/17 08/04/17 23:30 00:13 00:13 WBC 21.3 H Plt Count 480 H D Neutrophils % (Manual) 88.0 H Monocytes % (Manual) 3 L Sodium 132 L Chloride 93 L Random Glucose 487 H* Lactic Acid Alkaline Phosphatase 134 H Lipase 44 L Urine Protein 2+ H Urine Glucose (UA) 3+ H Urine Ketones 2+ H Urine Blood 1+ H Ur Leukocyte Esterase 3+ H Acetone, Qual Positive large 3+ H 08/04/17 02:09 WBC Plt Count Neutrophils % (Manual) Monocytes % (Manual) Sodium Chloride Random Glucose Lactic Acid 2.4 H* Alkaline Phosphatase Lipase Urine Protein Urine Glucose (UA) Urine Ketones Urine Blood Ur Leukocyte Esterase Acetone, Qual ASSESSMENT AND PLAN: 1. UTI - Started on Rocephin 1 gm IV q 24 hours. Getting IV bolus NS to address the lactic acidosis. Monitor lactic acid. 2. Uncontrolled DM - Likely due to associated infection. Started on sliding scale insulin and her usual insulin dose. 3. GERD? - If no improvement with Zantac, will refer to GI for endoscopy. 4. DVT prophylaxis - Lovenox 40 mg SQ q 24 hours. 5. Advance directives - Full code
[2017-08-04] MEDS: SODIUM CHLORIDE 1,000 ML IV SCH ×2 (04:47→10:18)
[2017-08-04] MEDS ORDERED: MAG HYDROX/AL HYDROX/SIMETH 30 ML UNIT-DOSE CUP ONE ×2 (04:50→13:07)
[2017-08-04] MEDS: INSULIN SLIDING SCALE (NOVOLOG) 1 VIAL SQ SCH ×3 (07:12→13:18)
[2017-08-04 08:34] LABS: BASO % 0.1 % (0-2.0); HEMATOCRIT 37.6 % (32.4-45.2); HEMOGLOBIN 12.6 GM/dL (10.7-15.3); LYMPH % 5.4 % (8-40); MCH 31.7 pg (25.7-33.7); MCHC 33.5 g/dl (32.0-36.0); MEAN CELL VOLUME 94.5 fl (80-96); MEAN PLT VOLUME 8.5 fl (7.5-11.1); MONO % 5.3 % (3.8-10.2); NEUT % 89.2 % (42.8-82.8); PLATELET COUNT 444 K/MM3 (134-434); RBC 3.98 M/mm3 (3.60-5.2); RDW 13.5 % (11.6-15.6); WHITE BLOOD COUNT 25.1 K/mm3 (4.0-10.0)
[2017-08-04 09:14] LABS: CHLORIDE 96 mmol/L (98-107); POTASSIUM 4.6 mmol/L (3.5-5.1); SODIUM 133 mmol/L (136-145)
--- NOTE | 2017-08-04 09:48 | EKG ---
Test Reason : Blood Pressure : / mmHG Vent. Rate : 117 BPM Atrial Rate : 117 BPM P-R Int : 130 ms QRS Dur : 064 ms QT Int : 342 ms P-R-T Axes : 038 007 021 degrees QTc Int : 477 ms SINUS TACHYCARDIA POSSIBLE LEFT ATRIAL ENLARGEMENT CANNOT RULE OUT ANTERIOR INFARCT (CITED ON OR BEFORE 05-NOV-2016) ABNORMAL ECG WHEN COMPARED WITH ECG OF 28-FEB-2017 22:05, NO SIGNIFICANT CHANGE WAS FOUND Confirmed by INNA BROCK, MORENO ([id number]) on 08/04/2017 9:47:47 AM Referred By: Confirmed By:MORENO KEITH MD
[2017-08-04] MEDS ORDERED: AMITRIPTYLINE HCL 25 MG TABLET (FP) PO SCH (10:00)
[2017-08-04 10:06] LABS: ALBUMIN 3.4 g/dl (3.4-5.0); ALK PHOS 133 U/L (45-117); ANION GAP 20 (8-16); BILIRUBIN,TOTAL 0.9 mg/dL (0.2-1.0); BLOOD UREA NITROGEN 16 mg/dL (7-18); CALCIUM 8.6 mg/dL (8.5-10.1); CO2 17 mmol/L (21-32); MAGNESIUM 1.8 mg/dL (1.8-2.4); PHOSPHOROUS 4.5 mg/dL (2.5-4.9); SGOT/AST 10 U/L (15-37); SGPT/ALT 14 U/L (12-78)
[2017-08-04] MEDS ORDERED: ENOXAPARIN NA (PORCINE) 40 MG/0.4 ML DISP.SYRIN SQ ONE (10:07)
[2017-08-04 10:11] LABS: GLUCOSE,RANDOM 396 mg/dL (74-106)
[2017-08-04] MEDS: ENOXAPARIN NA (PORCINE) 40 MG/0.4 ML DISP.SYRIN SQ SCH (10:17)
[2017-08-04] MEDS ORDERED: INSULIN (NOVOLOG) ASPART 100 UNITS/ML 10ML VIAL ONE ×3 (10:29→13:38)
[2017-08-04] MEDS ORDERED: SODIUM CHLORIDE 1,000 ML IV STA (11:05)
[2017-08-04] MEDS ORDERED: RANITIDINE HCL 150 MG TABLET (FP) ONE (12:01)
[2017-08-04] MEDS: RANITIDINE HCL 150 MG TABLET (FP) PO PRN (12:08)
[2017-08-04] MEDS ORDERED: HEMOQUE TEST 1 EACH EACH ONE (12:54)
[2017-08-04 13:09] LABS: ALBUMIN 3.7 g/dl (3.4-5.0); ANION GAP 23 (8-16); BLOOD UREA NITROGEN 19 mg/dL (7-18); CALCIUM 8.7 mg/dL (8.5-10.1); CHLORIDE 100 mmol/L (98-107); CO2 13 mmol/L (21-32); POTASSIUM 4.2 mmol/L (3.5-5.1); SGOT/AST 10 U/L (15-37); SODIUM 136 mmol/L (136-145)
[2017-08-04 13:12] LABS: ALK PHOS 138 U/L (45-117); BILIRUBIN,TOTAL 1.1 mg/dL (0.2-1.0); CREATININE 1.1 mg/dL (0.55-1.02); SGPT/ALT 18 U/L (12-78); TOT PROT 7.4 g/dl (6.4-8.2)
[2017-08-04 13:18] LABS: GLUCOSE,RANDOM 386 mg/dL (74-106)
--- NOTE | 2017-08-04 13:25 | EKG ---
Test Reason : Blood Pressure : / mmHG Vent. Rate : 128 BPM Atrial Rate : 128 BPM P-R Int : 130 ms QRS Dur : 062 ms QT Int : 308 ms P-R-T Axes : 042 006 018 degrees QTc Int : 449 ms POOR DATA QUALITY, INTERPRETATION MAY BE ADVERSELY AFFECTED SINUS TACHYCARDIA CANNOT RULE OUT ANTERIOR INFARCT (CITED ON OR BEFORE 05-NOV-2016) ABNORMAL ECG WHEN COMPARED WITH ECG OF 04-AUG-2017 00:34, NO SIGNIFICANT CHANGE WAS FOUND Confirmed by MORENO KEITH MD ([id number]) on 08/04/2017 1:24:40 PM Referred By: Confirmed By:MORENO KEITH MD
[2017-08-04] MEDS ORDERED: INSULIN REGULAR 100 UNITS in SODIUM CHLORIDE 99 ML IVPB SCH (14:30)
--- NOTE | 2017-08-04 14:41 | PN ---
Teaching Attending Note ATTENDING PHYSICIAN STATEMENT I saw and evaluated the patient. I reviewed the resident's note and discussed the case with the resident. I agree with the resident's findings and plan as documented. SUBJECTIVE: Pt seen and examined in the ER. Briefly, 27yo female with h/o poorly controlled IDDM, diabetic gastroparesis, HTN, h/o UTIs who presents with nausea, vomiting and dysuria x 1 week. States she has not been taking her insulin regularly due to insurance issues. No subjective fevers but with chills. Reports foul smelling urine. OBJECTIVE: Vital Signs Period Temp Pulse Resp BP Sys/Plata Pulse Ox Last 24 Hr 98.1 F-99 F 68-132 18-25 122-169/76-99 98-100 Intake & Output 08/01/17 08/02/17 08/03/17 08/04/17 23:59 23:59 23:59 23:59 Output Total 400 Balance -400 Weight 68.039 kg 68.039 kg Gen: diaphoretic, uncomfortable Heart: tachycardic, regular Lung: decreased breath sounds at the bases Abd: soft, nontender Ext: no edema CBC, BMP 08/04/17 07:02 08/04/17 12:34 Active Medications Acetaminophen (Tylenol -) 650 mg PO Q4H PRN PRN Reason: PAIN LEVEL 6-10 Amitriptyline HCl (Elavil -) 75 mg PO HS [facility] Chlorhexidine Gluconate (Hibiclens For Decolonization -) 1 applic TP HS [facility] Enoxaparin Sodium (Lovenox -) 40 mg SQ DAILY KARLENE Last Admin: 08/04/17 10:17 Dose: 40 mg Sodium Chloride (Normal Saline -) 1,000 mls @ 125 mls/hr IV ASDIR KARLENE Last Admin: 08/04/17 10:18 Dose: 125 mls/hr Ceftriaxone Sodium 1 gm/ (Dextrose) 50 mls @ 100 mls/hr IVPB DAILY K[facility]; Protocol Insulin Human Regular 100 (units/ Sodium Chloride) 100 mls @ 6.8 mls/hr IVPB TITR KARLENE; Protocol Mupirocin (Bactroban Ointment (For Decolonization) -) 1 applic NS BID KARLENE Stop: 08/09/17 21:59 Ranitidine HCl (Zantac -) 150 mg PO BID PRN PRN Reason: Abdominal Pain Last Admin: 08/04/17 12:08 Dose: 150 mg ASSESSMENT AND PLAN: Diabetic Ketoacidosis UTI Diabetic Gastroparesis - aggressive IVF resuscitation - insulin gtt until anion gap closed - monitor BGM q1h, BMP q4h while on insulin gtt - if BGM <250 while on insulin gtt, add D5 to IVF - if K <4.5 while on insulin gtt, add KCl to IVF - agree with antibiotics - f/u cultures - DVT prophylaxis - ICU monitoring while on insulin gtt
--- NOTE | 2017-08-04 15:29 | PN ---
Physical Exam: SUBJECTIVE: Patient seen and examined in the ER. OBJECTIVE: Anion gap elevated, + acetone with elevated bgms despite IVF bolus and insulin Will need insulin drip, ICU monitoring abd/pelvis CT Vital Signs Period Temp Pulse Resp BP Sys/Plata Pulse Ox Last 24 Hr 98.1 F-99 F 68-132 18-25 122-169/76-99 98-100 GENERAL: Awake, alert, and fully oriented, in no acute distress. HEAD: Normal with no signs of trauma. EYES: Pupils equal, round and reactive to light, extraocular movements intact, sclera anicteric, conjunctiva clear. No lid lag. NECK: Normal range of motion, supple without lymphadenopathy, JVD, or masses. LUNGS: Breath sounds equal, clear to auscultation bilaterally. No wheezes, and no crackles. No accessory muscle use. HEART: Regular rate and rhythm, normal S1 and S2 without murmur, rub or gallop. ABDOMEN: Soft, +tender in epigastrium, not distended, normoactive bowel sounds, no guarding, no rebound, no masses. No hepatomegaly or splenomegaly. MUSCULOSKELETAL: Normal range of motion at all joints. No bony deformities or tenderness. No CVA tenderness. UPPER EXTREMITIES:No peripheral edema. LOWER EXTREMITIES: No peripheral edema. NEUROLOGICAL: Normal speech. facial symmetry PSYCHIATRIC: Cooperative. Good eye contact. Appropriate mood and affect. SKIN: Warm, dry, normal turgor, no rashes or lesions noted, normal capillary refill. Laboratory Results - last 24 hr 08/03/17 08/04/17 08/04/17 23:30 00:13 00:13 WBC 21.3 H RBC 4.68 D Hgb 14.6 D Hct 43.9 D MCV 93.9 MCH 31.3 MCHC 33.3 RDW 13.0 Plt Count 480 H D MPV 8.5 Total Counted 100 Neutrophils % No Result Required. Neutrophils % (Manual) 88.0 H Lymphocytes % No Result Required. Lymphocytes % (Manual) 9.0 D Monocytes % Monocytes % (Manual) 3 L Eosinophils % Basophils % Nucleated RBC % 0 Sodium 132 L Potassium 4.8 Chloride 93 L Carbon Dioxide 23 Anion Gap 16 BUN 14 Creatinine 1.0 Creat Clearance w eGFR > 60 POC Glucometer Random Glucose 487 H* Hemoglobin A1c % Lactic Acid Calcium 10.0 Phosphorus Magnesium Total Bilirubin 1.0 D AST 20 ALT 16 Alkaline Phosphatase 134 H Total Protein 7.8 Albumin 3.6 Lipase 44 L Serum , Qual Urine Color Straw Urine Appearance Slcloudy Urine pH 6.0 Ur Specific [place] 1.029 Urine Protein 2+ H Urine Glucose (UA) 3+ H Urine Ketones 2+ H Urine Blood 1+ H Urine Nitrite Negative Urine Bilirubin Negative Urine Urobilinogen Negative Ur Leukocyte Esterase 3+ H Urine WBC (Auto) 165 Urine RBC (Auto) 2 Ur Epithelial Cells Moderate Urine Mucus Rare Acetone, Qual Positive large 3+ H 08/04/17 08/04/17 08/04/17 00:13 02:09 07:02 WBC 25.1 H RBC 3.98 Hgb 12.6 D Hct 37.6 MCV 94.5 MCH 31.7 MCHC 33.5 RDW 13.5 Plt Count 444 H MPV 8.5 Total Counted Neutrophils % 89.2 H Neutrophils % (Manual) Lymphocytes % 5.4 L D Lymphocytes % (Manual) Monocytes % 5.3 Monocytes % (Manual) Eosinophils % 0.0 D Basophils % 0.1 Nucleated RBC % 0 Sodium Potassium Chloride Carbon Dioxide Anion Gap BUN Creatinine Creat Clearance w eGFR POC Glucometer Random Glucose Hemoglobin A1c % Lactic Acid 2.4 H* Calcium Phosphorus Magnesium Total Bilirubin AST ALT Alkaline Phosphatase Total Protein Albumin Lipase Serum , Qual Negative Urine Color Urine Appearance Urine pH Ur Specific [place] Urine Protein Urine Glucose (UA) Urine Ketones Urine Blood Urine Nitrite Urine Bilirubin Urine Urobilinogen Ur Leukocyte Esterase Urine WBC (Auto) Urine RBC (Auto) Ur Epithelial Cells Urine Mucus Acetone, Qual 08/04/17 08/04/17 08/04/17 07:02 07:02 07:02 WBC RBC Hgb Hct MCV MCH MCHC RDW Plt Count MPV Total Counted Neutrophils % Neutrophils % (Manual) Lymphocytes % Lymphocytes % (Manual) Monocytes % Monocytes % (Manual) Eosinophils % Basophils % Nucleated RBC % Sodium 133 L Potassium 4.6 Chloride 96 L Carbon Dioxide 17 L Anion Gap 20 H BUN 16 Creatinine 1.0 Creat Clearance w eGFR > 60 POC Glucometer Random Glucose 396 H* Hemoglobin A1c % 8.4 H Lactic Acid 1.9 Calcium 8.6 Phosphorus 4.5 Magnesium 1.8 Total Bilirubin 0.9 AST 10 L ALT 14 Alkaline Phosphatase 133 H Total Protein 7.0 Albumin 3.4 Lipase Serum , Qual Urine Color Urine Appearance Urine pH Ur Specific [place] Urine Protein Urine Glucose (UA) Urine Ketones Urine Blood Urine Nitrite Urine Bilirubin Urine Urobilinogen Ur Leukocyte Esterase Urine WBC (Auto) Urine RBC (Auto) Ur Epithelial Cells Urine Mucus Acetone, Qual 08/04/17 08/04/17 08/04/17 10:26 12:34 12:58 WBC RBC Hgb Hct MCV MCH MCHC RDW Plt Count MPV Total Counted Neutrophils % Neutrophils % (Manual) Lymphocytes % Lymphocytes % (Manual) Monocytes % Monocytes % (Manual) Eosinophils % Basophils % Nucleated RBC % Sodium 136 Potassium 4.2 Chloride 100 Carbon Dioxide 13 L Anion Gap 23 H BUN 19 H Creatinine 1.1 H Creat Clearance w eGFR 59.58 POC Glucometer > [phone] Random Glucose 386 H* Hemoglobin A1c % Lactic Acid Calcium 8.7 Phosphorus Magnesium Total Bilirubin 1.1 H D AST 10 L ALT 18 Alkaline Phosphatase 138 H Total Protein 7.4 Albumin 3.7 Lipase Serum , Qual Urine Color Urine Appearance Urine pH Ur Specific [place] Urine Protein Urine Glucose (UA) Urine Ketones Urine Blood Urine Nitrite Urine Bilirubin Urine Urobilinogen Ur Leukocyte Esterase Urine WBC (Auto) Urine RBC (Auto) Ur Epithelial Cells Urine Mucus Acetone, Qual Active Medications Generic Name Dose Route Start Last Admin Trade Name Freq PRN Reason Stop Dose Admin Acetaminophen 650 mg 08/04/17 05:37 Tylenol - PO Q4H PRN PAIN LEVEL 6-10 Amitriptyline HCl 75 mg 08/04/17 22:00 Elavil - PO HS [facility] Chlorhexidine Gluconate 1 applic 08/04/17 22:00 Hibiclens For Decolonization - TP HS [facility] Enoxaparin Sodium 40 mg 08/04/17 10:00 08/04/17 10:17 Lovenox - SQ 40 mg DAILY [facility] Administration Sodium Chloride 1,000 mls @ 125 mls/hr 08/04/17 02:30 08/04/17 10:18 Normal Saline - IV 125 mls/hr ASDIR KARLENE Administration Ceftriaxone Sodium 1 gm/ 50 mls @ 100 mls/hr 08/04/17 20:00 Dextrose IVPB DAILY [facility] Protocol Insulin Human Regular 100 100 mls @ 6.8 mls/hr 08/04/17 14:30 units/ Sodium Chloride IVPB TITR [facility] Protocol 0.1 UNITS/KG/HR Mupirocin 1 applic 08/04/17 22:00 Bactroban Ointment (For Decolonization) - NS 08/09/17 21:59 BID K[facility]LENE Ranitidine HCl 150 mg 08/04/17 03:31 08/04/17 12:08 Zantac - PO 150 mg BID PRN Administration Abdominal Pain ASSESSMENT/PLAN: Patient is a 27 year old female witha significant past medical history of DKA, HTN, gastroparesis, hx of recurrent UTI's, multiple episodes of DKA presents with 1 day of foul smelling urine a.w 4 episodes of watery-bilious nonbloody emesis over past 2 days. denies fevers, chest pain, sob, hematochezia, diarrhea , constipation. UTI On Ceftriaxone 1 gram daily IV fluids for hydration Monitor intake and output Lactic acidosis resolved Hyperglycemia, uncontrolled DKA, started on insulin drip Transfer to ICU Diabetic gastroparesis, chronic On zantac GI consult if no improvement F.E.N. Fluids: NS Electrolytes: monitor daily Nutrition: npo while on insulin drip DVT: Lovenox GI: Zantac Full code
--- NOTE | 2017-08-04 18:54 | CONSULT ---
Consultation: REQUESTING PROVIDER:[facility] Kylee HERB DOCTOR CONSULT REQUEST: We have been asked to medically evaluate this patient for DKA. HISTORY OF PRESENT ILLNESS: 27 year old female with pmhx of IDDM, recurrent UTI , multiple DKA, HTN presented to the ED due to N/V, abdominal pain and dysuria was found to have sepsis due to UTI and elevated blood sugar in 400 and was admitted to ICU for further evaluation . REVIEW OF SYSTEMS: CONSTITUTIONAL: Absent: fever, chills, diaphoresis, generalized weakness, malaise, loss of appetite, weight change HEENT: Absent: rhinorrhea, nasal congestion, throat pain, throat swelling, difficulty swallowing, mouth swelling, ear pain, eye pain, visual changes CARDIOVASCULAR: Absent: chest burning sensation , syncope, palpitations, irregular heart rate, lightheadedness, peripheral edema RESPIRATORY: Absent: cough, shortness of breath, dyspnea with exertion, orthopnea, wheezing, stridor, hemoptysis GASTROINTESTINAL: Absent: abdominal pain, abdominal distension, nausea, vomiting, diarrhea, constipation, melena, hematochezia GENITOURINARY: Absent: dysuria, frequency, urgency, hesitancy, hematuria, flank pain, genital pain MUSCULOSKELETAL: Absent: myalgia, arthralgia, joint swelling, back pain, neck pain SKIN: Absent: rash, itching, pallor HEMATOLOGIC/IMMUNOLOGIC: Absent: easy bleeding, easy bruising, lymphadenopathy, frequent infections ENDOCRINE: Absent: unexplained weight gain, unexplained weight loss, heat intolerance, cold intolerance NEUROLOGIC: Absent: headache, focal weakness or paresthesias, dizziness, unsteady gait, seizure, mental status changes, bladder or bowel incontinence PSYCHIATRIC: Absent: anxiety, depression, suicidal or homicidal ideation, hallucinations. PHYSICAL EXAMINATION Vital Signs - 24 hr 08/03/17 08/04/17 08/04/17 22:00 00:51 04:05 Temperature 98.1 F 98.6 F Pulse Rate 118 H Pulse Rate [ 120 H 121 H Right Apical] Respiratory 20 25 H 25 H Rate Blood Pressure 169/97 Blood Pressure 156/99 145/89 [Left Arm] O2 Sat by Pulse 100 99 99 Oximetry (%) 08/04/17 08/04/17 08/04/17 07:01 07:49 09:32 Temperature 99 F 99 F Pulse Rate 112 H 68 Pulse Rate [ 132 H Right Apical] Respiratory 18 24 18 Rate Blood Pressure 122/76 122/76 Blood Pressure 142/89 [Left Arm] O2 Sat by Pulse 98 Oximetry (%) GENERAL: AAOx3 in NAD HEAD: NC/AT EYES: KOBY, EOMI , sclera anicteric, conjunctiva clear. EARS, NOSE, THROAT: Ears normal, nares patent, oropharynx clear without exudates. Moist mucous membranes. NECK: FROM, supple without lymphadenopathy, LUNGS: CTA B/L , No wheezes, and no crackles. No accessory muscle use. HEART: RRR, normal S1 and S2 ,No MRG ABDOMEN: Soft, mild epigastric tenderness, not distended, normoactive bowel sounds, no guarding, no rebound, MUSCULOSKELETAL: No CVA tenderness. UPPER EXTREMITIES: 2+ pulses, warm, well-perfused. No cyanosis. No clubbing. Cap refill <2 seconds. No peripheral edema. LOWER EXTREMITIES: 2+ pulses, warm, well-perfused. No calf tenderness. No peripheral edema. NEUROLOGICAL: Cranial nerves II-XII intact. Normal speech. PSYCHIATRIC: Cooperative. Good eye contact. Appropriate mood and affect. SKIN: Warm, dry, normal turgor, Laboratory Results - last 24 hr 08/03/17 08/04/17 08/04/17 23:30 00:13 00:13 WBC 21.3 H RBC 4.68 D Hgb 14.6 D Hct 43.9 D MCV 93.9 MCH 31.3 MCHC 33.3 RDW 13.0 Plt Count 480 H D MPV 8.5 Total Counted 100 Neutrophils % No Result Required. Neutrophils % (Manual) 88.0 H Lymphocytes % No Result Required. Lymphocytes % (Manual) 9.0 D Monocytes % Monocytes % (Manual) 3 L Eosinophils % Basophils % Nucleated RBC % 0 Sodium 132 L Potassium 4.8 Chloride 93 L Carbon Dioxide 23 Anion Gap 16 BUN 14 Creatinine 1.0 Creat Clearance w eGFR > 60 POC Glucometer Random Glucose 487 H* Hemoglobin A1c % Lactic Acid Calcium 10.0 Phosphorus Magnesium Total Bilirubin 1.0 D AST 20 ALT 16 Alkaline Phosphatase 134 H Total Protein 7.8 Albumin 3.6 Lipase 44 L Serum , Qual Urine Color Straw Urine Appearance Slcloudy Urine pH 6.0 Ur Specific Dillon 1.029 Urine Protein 2+ H Urine Glucose (UA) 3+ H Urine Ketones 2+ H Urine Blood 1+ H Urine Nitrite Negative Urine Bilirubin Negative Urine Urobilinogen Negative Ur Leukocyte Esterase 3+ H Urine WBC (Auto) 165 Urine RBC (Auto) 2 Ur Epithelial Cells Moderate Urine Mucus Rare Acetone, Qual Positive large 3+ H 08/04/17 08/04/17 08/04/17 00:13 02:09 07:02 WBC 25.1 H RBC 3.98 Hgb 12.6 D Hct 37.6 MCV 94.5 MCH 31.7 MCHC 33.5 RDW 13.5 Plt Count 444 H MPV 8.5 Total Counted Neutrophils % 89.2 H Neutrophils % (Manual) Lymphocytes % 5.4 L D Lymphocytes % (Manual) Monocytes % 5.3 Monocytes % (Manual) Eosinophils % 0.0 D Basophils % 0.1 Nucleated RBC % 0 Sodium Potassium Chloride Carbon Dioxide Anion Gap BUN Creatinine Creat Clearance w eGFR POC Glucometer Random Glucose Hemoglobin A1c % Lactic Acid 2.4 H* Calcium Phosphorus Magnesium Total Bilirubin AST ALT Alkaline Phosphatase Total Protein Albumin Lipase Serum , Qual Negative Urine Color Urine Appearance Urine pH Ur Specific Dillon Urine Protein Urine Glucose (UA) Urine Ketones Urine Blood Urine Nitrite Urine Bilirubin Urine Urobilinogen Ur Leukocyte Esterase Urine WBC (Auto) Urine RBC (Auto) Ur Epithelial Cells Urine Mucus Acetone, Qual 08/04/17 08/04/17 08/04/17 07:02 07:02 07:02 WBC RBC Hgb Hct MCV MCH MCHC RDW Plt Count MPV Total Counted Neutrophils % Neutrophils % (Manual) Lymphocytes % Lymphocytes % (Manual) Monocytes % Monocytes % (Manual) Eosinophils % Basophils % Nucleated RBC % Sodium 133 L Potassium 4.6 Chloride 96 L Carbon Dioxide 17 L Anion Gap 20 H BUN 16 Creatinine 1.0 Creat Clearance w eGFR > 60 POC Glucometer Random Glucose 396 H* Hemoglobin A1c % 8.4 H Lactic Acid 1.9 Calcium 8.6 Phosphorus 4.5 Magnesium 1.8 Total Bilirubin 0.9 AST 10 L ALT 14 Alkaline Phosphatase 133 H Total Protein 7.0 Albumin 3.4 Lipase Serum , Qual Urine Color Urine Appearance Urine pH Ur Specific Dillon Urine Protein Urine Glucose (UA) Urine Ketones Urine Blood Urine Nitrite Urine Bilirubin Urine Urobilinogen Ur Leukocyte Esterase Urine WBC (Auto) Urine RBC (Auto) Ur Epithelial Cells Urine Mucus Acetone, Qual 08/04/17 08/04/17 08/04/17 10:26 12:34 12:58 WBC RBC Hgb Hct MCV MCH MCHC RDW Plt Count MPV Total Counted Neutrophils % Neutrophils % (Manual) Lymphocytes % Lymphocytes % (Manual) Monocytes % Monocytes % (Manual) Eosinophils % Basophils % Nucleated RBC % Sodium 136 Potassium 4.2 Chloride 100 Carbon Dioxide 13 L Anion Gap 23 H BUN 19 H Creatinine 1.1 H Creat Clearance w eGFR 59.58 POC Glucometer > [phone] Random Glucose 386 H* Hemoglobin A1c % Lactic Acid Calcium 8.7 Phosphorus Magnesium Total Bilirubin 1.1 H D AST 10 L ALT 18 Alkaline Phosphatase 138 H Total Protein 7.4 Albumin 3.7 Lipase Serum , Qual Urine Color Urine Appearance Urine pH Ur Specific Dillon Urine Protein Urine Glucose (UA) Urine Ketones Urine Blood Urine Nitrite Urine Bilirubin Urine Urobilinogen Ur Leukocyte Esterase Urine WBC (Auto) Urine RBC (Auto) Ur Epithelial Cells Urine Mucus Acetone, Qual 08/04/17 08/04/17 08/04/17 15:42 17:21 18:00 WBC RBC Hgb Hct MCV MCH MCHC RDW Plt Count MPV Total Counted Neutrophils % Neutrophils % (Manual) Lymphocytes % Lymphocytes % (Manual) Monocytes % Monocytes % (Manual) Eosinophils % Basophils % Nucleated RBC % Sodium Potassium Chloride Carbon Dioxide Anion Gap BUN Creatinine Creat Clearance w eGFR POC Glucometer 305.02481 228.49373 [phone] Random Glucose Hemoglobin A1c % Lactic Acid Calcium Phosphorus Magnesium Total Bilirubin AST ALT Alkaline Phosphatase Total Protein Albumin Lipase Serum , Qual Urine Color Urine Appearance Urine pH Ur Specific Dillon Urine Protein Urine Glucose (UA) Urine Ketones Urine Blood Urine Nitrite Urine Bilirubin Urine Urobilinogen Ur Leukocyte Esterase Urine WBC (Auto) Urine RBC (Auto) Ur Epithelial Cells Urine Mucus Acetone, Qual Active Medications Generic Name Dose Route Start Last Admin Trade Name Freq PRN Reason Stop Dose Admin Acetaminophen 650 mg 08/04/17 05:37 Tylenol - PO Q4H PRN PAIN LEVEL 6-10 Amitriptyline HCl 75 mg 08/04/17 22:00 Elavil - PO HS [facility] Chlorhexidine Gluconate 1 applic 08/04/17 22:00 Hibiclens For Decolonization - TP HS [facility] Enoxaparin Sodium 40 mg 08/04/17 10:00 08/04/17 10:17 Lovenox - SQ 40 mg DAILY KARLENE Administration Sodium Chloride 1,000 mls @ 125 mls/hr 08/04/17 02:30 08/04/17 10:18 Normal Saline - IV 125 mls/hr ASDIR KARLENE Administration Ceftriaxone Sodium 1 gm/ 50 mls @ 100 mls/hr 08/04/17 20:00 Dextrose IVPB DAILY KARLENE Protocol Insulin Human Regular 100 100 mls @ 6.8 mls/hr 08/04/17 14:30 08/04/17 14:30 units/ Sodium Chloride IVPB 0.1 units/kg/hr TITR KARLENE 6.8 mls/hr Administration Protocol 0.1 UNITS/KG/HR Mupirocin 1 applic 08/04/17 22:00 Bactroban Ointment (For Decolonization) - NS 08/09/17 21:59 BID KARLENE Ranitidine HCl 150 mg 08/04/17 03:31 08/04/17 12:08 Zantac - PO 150 mg BID PRN Administration Abdominal Pain CBC, BMP 08/04/17 07:02 08/04/17 12:34 ASSESSMENT/PLAN: 27 year old female with pmhx of IDDM, recurrent UTI , multipile DKA, HTN presented to the ED due to N/V, abdominal pain and dusuria was found to have sepsis due to UTI and elevated blood sugar in 400 and was admitted to ICU for further evaluation . # Sepsis 2/2 UTI * IV fluids * LA * Ceftriaxone 1 gm Q 24 hour * monitor in ICU * UA, +3 LE , WBC 135 , +2 ketones * CXR no acute pathology * f/u cx * repeat CBC, CMP , Mag, Phosporus in AM # diabetic ketoacidosis , uncontrolled IDDM likely due to UTI * blood glucose 417... 386 on admission, Acetone level +3 * insulin GTT till anion Gap close , will add D5w when glucose below 250 , will bridge with levemir SQ for 2 hours and then start d5 1/2 NS to keep Blood glucose between 150 and 200 * BGM Q 1 hours till gap closed , BMP Q 4 h, monitor K and add Kcl when K below 5.5 * ISS * NPO for now # possible gastritis , H/O GERD, Gastroparesis due to uncontrolled DM * Zantac for now 150 po BID * will consider GI consult and EGD if no improvement # FEN * F: NS @ 125 CC/hr * E: monitor , relinished K if needed * N: NPO # Proph * DVTs: Lovenox 40 mg SQ q 24 hours. * GI : Zantac 150 po BID PRN # Dispo * admit to ICU # Advance directive : full code Total critical time 45 min Dispo: We will continue to follow the patient. Thank you for this consultative opportunity. Visit type - Emergency Visit Emergency Visit: Yes ED Registration Date: 08/04/17 Care time: The patient presented to the Emergency Department on the above date and was hospitalized for further evaluation of their emergent condition. - New Patient This patient is new to me today: Yes Date on this admission: 08/04/17 - Critical Care Critical Care patient: Yes Total Critical Care Time (in minutes): 45 Critical Care Statement: The care of this patient involved high complexity decision making to prevent further life threatening deterioration of the patient 's condition and/or to evaluate & treat vital organ system(s) failure or risk of failure.
[2017-08-04] MEDS ORDERED: D5-1/2NS+10 MEQ KCL - 10 MEQ/1,000 ML INFUS.BAG IV SCH (20:00)
[2017-08-04] MEDS: CEFTRIAXONE 1 GM in DEXTROSE 5%-WATER - 50 ML IVPB SCH (20:32)
[2017-08-04] MEDS ORDERED: MUPIROCIN 2% TOPICAL OINTMENT FOR DECOLONIZATION NS SCH (22:00)
[2017-08-04] MEDS ORDERED: AMITRIPTYLINE HCL 75 MG TABLET PO SCH (22:00)
[2017-08-04] MEDS ORDERED: CHLORHEXIDINE GLUCONATE 4% CLEANSER FOR DECOLONIZATION TP SCH (22:00)
[2017-08-04] MEDS ORDERED: AMITRIPTYLINE HCL 25 MG TABLET (FP) ONE (22:06)
[2017-08-04 22:46] LABS: ANION GAP 13 (8-16); BLOOD UREA NITROGEN 12 mg/dL (7-18); CALCIUM 7.4 mg/dL (8.5-10.1); CHLORIDE 104 mmol/L (98-107); CO2 16 mmol/L (21-32); CREATININE 0.9 mg/dL (0.55-1.02); GLUCOSE,RANDOM 183 mg/dL (74-106); POTASSIUM 3.9 mmol/L (3.5-5.1); SODIUM 133 mmol/L (136-145)
[2017-08-04] MEDS ORDERED: INSULIN (LEVEMIR) 100 UNITS/ML UNITS SQ ONE (23:12)
[2017-08-04] MEDS ORDERED: KCL 10 MEQ IVPB 10 MEQ/100 ML INFUS.BAG IVPB SCH (23:30)
[2017-08-05 02:58] LABS: ANION GAP 12 (8-16); BLOOD UREA NITROGEN 8 mg/dL (7-18); CALCIUM 7.7 mg/dL (8.5-10.1); CHLORIDE 107 mmol/L (98-107); CO2 17 mmol/L (21-32); CREATININE 0.9 mg/dL (0.55-1.02); GLUCOSE,RANDOM 99 mg/dL (74-106); POTASSIUM 4.2 mmol/L (3.5-5.1); SODIUM 136 mmol/L (136-145)
[2017-08-05] MEDS ORDERED: RANITIDINE HCL 150 MG TABLET (FP) ONE (06:28)
[2017-08-05] MEDS: RANITIDINE HCL 150 MG TABLET (FP) PO PRN (06:56)
[2017-08-05 07:38] LABS: BASO % 0.4 % (0-2.0); EOS % 0.1 % (0-4.5); HEMATOCRIT 38.7 % (32.4-45.2); LYMPH % 7.5 % (8-40); MCH 32.2 pg (25.7-33.7); MCHC 33.6 g/dl (32.0-36.0); MEAN PLT VOLUME 8.1 fl (7.5-11.1); MONO % 3.9 % (3.8-10.2); NEUT % 88.1 % (42.8-82.8); PLATELET COUNT 345 K/MM3 (134-434); RBC 4.03 M/mm3 (3.60-5.2); RDW 13.1 % (11.6-15.6)
[2017-08-05 07:42] LABS: WHITE BLOOD COUNT 30.5 K/mm3 (4.0-10.0)
[2017-08-05] MEDS ORDERED: PIPERACILLIN/TAZOB 3.375 GM 3.375 GM in DEXTROSE 5%-WATER - 50 ML IVPB ONE (08:00)
[2017-08-05] MEDS ORDERED: LISINOPRIL 5 MG TABLET (FP) PO ONE (08:46)
[2017-08-05] MEDS ORDERED: PIPERACILLIN/TAZOB 3.375 GM 3.375 GM/50 ML BAG IVPB ONE (09:02)
[2017-08-05 09:24] LABS: HEMATOCRIT 38.7 % (32.4-45.2); HEMOGLOBIN 12.8 GM/dL (10.7-15.3); MCH 30.9 pg (25.7-33.7); MEAN CELL VOLUME 93.6 fl (80-96); PLATELET COUNT 462 K/MM3 (134-434); RBC 4.14 M/mm3 (3.60-5.2); RDW 13.4 % (11.6-15.6); WHITE BLOOD COUNT 27.4 K/mm3 (4.0-10.0)
[2017-08-05 09:47] LABS: BLOOD UREA NITROGEN 6 mg/dL (7-18)
--- NOTE | 2017-08-05 09:53 | CONSULT ---
Consultation: REQUESTING PROVIDER: CONSULT REQUEST: We have been asked to medically evaluate this patient for UTI and leukocytosis. HISTORY OF PRESENT ILLNESS: 27F with PMH of uncontrolled IDDM with multiple episodes of DKA, recurrent UTI's , gastroparesis, htn, presents with foul smelling urine x 1 day. Pt denies dysuria or cloudy looking urine. Pt reports 4 episodes of bilious, nonbloody vomiting over the past 2 days, though none today so far. Pt denies recent illness, last UTI was 6 mo ago. Pt denies recent abx use. Pt found to have hyperglycemia >400. Pt found to be septic with elevated leukocytosis, tachycardia, and tachypnea. Pt denies fever, chills, chest pain, sob, abdominal pain. REVIEW OF SYSTEMS: CONSTITUTIONAL: Absent: fever, chills, diaphoresis HEENT: Absent: rhinorrhea, nasal congestion, ear pain, eye pain, visual changes CARDIOVASCULAR: Absent: chest pain, palpitations, irregular heart rate, peripheral edema RESPIRATORY: Absent: cough, shortness of breath, orthopnea, wheezing, stridor GASTROINTESTINAL: Absent: abdominal pain, abdominal distension, nausea, vomiting, diarrhea, constipation GENITOURINARY: Absent: dysuria, frequency, hematuria MUSCULOSKELETAL: Absent: myalgia, arthralgia, joint swelling, back pain, neck pain SKIN: Absent: rash, itching, pallor NEUROLOGIC: Absent: headache, focal weakness or paresthesias PSYCHIATRIC: Absent: anxiety, depression PHYSICAL EXAMINATION Vital Signs - 24 hr 08/05/17 08/05/17 06:42 07:30 Pulse Rate [ 118 H 122 H Right Apical] Respiratory 18 16 Rate Blood Pressure 159/86 150/101 [Left Arm] O2 Sat by Pulse 97 100 Oximetry (%) GENERAL: Awake, alert, and fully oriented, in no acute distress. LUNGS: Breath sounds equal, clear to auscultation bilaterally. No wheezes, and no crackles. No accessory muscle use. HEART: Tachycardia, normal S1 and S2 without murmur. ABDOMEN: Soft, nontender, not distended, normoactive bowel sounds, no guarding. MUSCULOSKELETAL: Normal range of motion at all joints. No CVA tenderness. LOWER EXTREMITIES: Warm, well-perfused. No calf tenderness. No peripheral edema. NEUROLOGICAL: Cranial nerves II-XII grossly intact. Normal speech. PSYCHIATRIC: Cooperative. Good eye contact. Appropriate mood and affect. Laboratory Results - last 24 hr 08/04/17 08/04/17 08/04/17 07:02 10:26 12:34 WBC RBC Hgb Hct MCV MCH MCHC RDW Plt Count MPV Neutrophils % Lymphocytes % Monocytes % Eosinophils % Basophils % Nucleated RBC % Sodium 136 Potassium 4.2 Chloride 100 Carbon Dioxide 17 L 13 L Anion Gap 20 H 23 H BUN 16 19 H Creatinine 1.0 1.1 H Creat Clearance w eGFR > 60 59.58 POC Glucometer > 400 Random Glucose 396 H* 386 H* Calcium 8.6 8.7 Phosphorus 4.5 Magnesium 1.8 Total Bilirubin 0.9 1.1 H D AST 10 L 10 L ALT 14 18 Alkaline Phosphatase 133 H 138 H Total Protein 7.0 7.4 Albumin 3.4 3.7 08/04/17 08/04/17 08/04/17 12:58 15:42 17:21 WBC RBC Hgb Hct MCV MCH MCHC RDW Plt Count MPV Neutrophils % Lymphocytes % Monocytes % Eosinophils % Basophils % Nucleated RBC % Sodium Potassium Chloride Carbon Dioxide Anion Gap BUN Creatinine Creat Clearance w eGFR POC Glucometer 293.02622 305.02145 [phone] Random Glucose Calcium Phosphorus Magnesium Total Bilirubin AST ALT Alkaline Phosphatase Total Protein Albumin 08/04/17 08/04/17 08/04/17 18:00 19:23 20:07 WBC RBC Hgb Hct MCV MCH MCHC RDW Plt Count MPV Neutrophils % Lymphocytes % Monocytes % Eosinophils % Basophils % Nucleated RBC % Sodium Potassium Chloride Carbon Dioxide Anion Gap BUN Creatinine Creat Clearance w eGFR POC Glucometer 192.81297 113.17201 184.99511 Random Glucose Calcium Phosphorus Magnesium Total Bilirubin AST ALT Alkaline Phosphatase Total Protein Albumin 08/04/17 08/04/17 08/05/17 21:21 22:00 01:17 WBC RBC Hgb Hct MCV MCH MCHC RDW Plt Count MPV Neutrophils % Lymphocytes % Monocytes % Eosinophils % Basophils % Nucleated RBC % Sodium 133 L Potassium 3.9 Chloride 104 Carbon Dioxide 16 L Anion Gap 13 BUN 12 Creatinine 0.9 Creat Clearance w eGFR POC Glucometer 200.86935 124.50027 Random Glucose 183 H Calcium 7.4 L Phosphorus Magnesium Total Bilirubin AST ALT Alkaline Phosphatase Total Protein Albumin 08/05/17 08/05/17 08/05/17 02:33 03:53 06:25 WBC RBC Hgb Hct MCV MCH MCHC RDW Plt Count MPV Neutrophils % Lymphocytes % Monocytes % Eosinophils % Basophils % Nucleated RBC % Sodium 136 Potassium 4.2 Chloride 107 Carbon Dioxide 17 L Anion Gap 12 BUN 8 Creatinine 0.9 Creat Clearance w eGFR POC Glucometer 157.77093 206.03126 Random Glucose 99 Calcium 7.7 L Phosphorus Magnesium Total Bilirubin AST ALT Alkaline Phosphatase Total Protein Albumin 08/05/17 08/05/17 07:08 08:48 WBC 30.5 H* 27.4 H RBC 4.03 4.14 Hgb 13.0 12.8 Hct 38.7 38.7 MCV 96.0 93.6 MCH 32.2 30.9 MCHC 33.6 33.0 RDW 13.1 13.4 Plt Count 345 D 462 H D MPV 8.1 8.0 Neutrophils % 88.1 H No Result Required. Lymphocytes % 7.5 L D No Result Required. Monocytes % 3.9 Eosinophils % 0.1 D Basophils % 0.4 D Nucleated RBC % 0 0 Sodium Potassium Chloride Carbon Dioxide Anion Gap BUN Creatinine Creat Clearance w eGFR POC Glucometer Random Glucose Calcium Phosphorus Magnesium Total Bilirubin AST ALT Alkaline Phosphatase Total Protein Albumin Active Medications Generic Name Dose Route Start Last Admin Trade Name Freq PRN Reason Stop Dose Admin Acetaminophen 650 mg 08/04/17 05:37 Tylenol - PO Q4H PRN PAIN LEVEL 6-10 Amitriptyline HCl 75 mg 08/04/17 22:00 08/04/17 22:08 Elavil - PO 75 mg HS [facility] Administration Chlorhexidine Gluconate 1 applic 08/04/17 22:00 Hibiclens For Decolonization - TP [facility] Enoxaparin Sodium 40 mg 08/04/17 10:00 08/04/17 10:17 Lovenox - SQ 40 mg DAILY KARLENE Administration Ceftriaxone Sodium 1 gm/ 50 mls @ 100 mls/hr 08/04/17 20:00 08/04/17 20:32 Dextrose IVPB 100 mls/hr DAILY KARLENE Administration Protocol Potassium Chloride/Dextrose/Sod Cl 10 meq in 1,000 mls @ 100 mls/hr 08/05/17 09:00 D5-1/2ns+10 Meq Kcl - IV ASDIR KARLENE Insulin Aspart 1 vial 08/05/17 11:00 Novolog Vial Sliding Scale - SQ ACHS KARLENE Protocol Lisinopril 2.5 mg 08/05/17 08:46 08/05/17 09:17 Prinivil PO 08/05/17 08:47 2.5 mg ONCE ONE Administration Mupirocin 1 applic 08/04/17 22:00 Bactroban Ointment (For Decolonization) - NS 08/09/17 21:59 BID KARLENE Ranitidine HCl 150 mg 08/04/17 03:31 08/05/17 06:56 Zantac - PO 150 mg BID PRN Administration Abdominal Pain ASSESSMENT/PLAN: 27F with PMH of uncontrolled IDDM with multiple episodes of DKA, recurrent UTI's , gastroparesis, htn, presents with foul smelling urine x 1 day, admitted for sepsis 2/2 UTI. # sepsis 2/2 UTI - leukocytosis - likely 2/2 sepsis vs leukomoid rxn - pt remains afebrile - lactic acidosis resolved - pt refused Ab/Pel CT - pt received Ceftriaxone and Zosyn in ER - preliminary urine culture growing non-lactose fermenting GNB - most recent UTI 02/2017, urine culture grew E. coli sensitive to Ceftriaxone - continue IV Ceftriaxone # hyperglycemia / IDDM - care per primary team Plan discussed with Dr. Guillen. Dispo: We will continue to follow the patient. Thank you for this consultative opportunity. Visit type - Emergency Visit Emergency Visit: Yes ED Registration Date: 08/04/17 Care time: The patient presented to the Emergency Department on the above date and was hospitalized for further evaluation of their emergent condition. - New Patient This patient is new to me today: Yes Date on this admission: 08/05/17 - Critical Care Critical Care patient: No
[2017-08-05] MEDS: D5-1/2NS+10 MEQ KCL - 10 MEQ/1,000 ML INFUS.BAG IV SCH ×2 (10:19→23:04)
[2017-08-05] MEDS: CEFTRIAXONE 1 GM in DEXTROSE 5%-WATER - 50 ML IVPB SCH (10:21)
[2017-08-05] MEDS ORDERED: INSULIN (NOVOLOG) ASPART 100 UNITS/ML 10ML VIAL ONE ×2 (10:25→21:36)
[2017-08-05] MEDS ORDERED: ENOXAPARIN NA (PORCINE) 40 MG/0.4 ML DISP.SYRIN SQ ONE (10:25)
[2017-08-05] MEDS ORDERED: CEFTRIAXONE 1 GM/50 ML BAG ONE (10:26)
[2017-08-05] MEDS: ENOXAPARIN NA (PORCINE) 40 MG/0.4 ML DISP.SYRIN SQ SCH (10:31)
[2017-08-05 10:33] LABS: ALBUMIN 3.2 g/dl (3.4-5.0); ALK PHOS 127 U/L (45-117); ANION GAP 14 (8-16); BILIRUBIN,TOTAL 0.8 mg/dL (0.2-1.0); CALCIUM 8.3 mg/dL (8.5-10.1); CHLORIDE 100 mmol/L (98-107); CO2 17 mmol/L (21-32); CREATININE 0.9 mg/dL (0.55-1.02); GLUCOSE,RANDOM 269 mg/dL (74-106); POTASSIUM 4.4 mmol/L (3.5-5.1); SGOT/AST 10 U/L (15-37); SGPT/ALT 16 U/L (12-78); SODIUM 131 mmol/L (136-145); TOT PROT 6.8 g/dl (6.4-8.2)
[2017-08-05 10:42] LABS: MAGNESIUM 2.2 mg/dL (1.8-2.4)
[2017-08-05] MEDS ORDERED: INSULIN SLIDING SCALE (NOVOLOG) 1 VIAL SQ SCH ×3 (11:00→22:00)
[2017-08-05 11:44] LABS: BLOOD UREA NITROGEN 6 mg/dL (7-18)
[2017-08-05 11:46] LABS: ANION GAP 13 (8-16); CHLORIDE 101 mmol/L (98-107); CO2 15 mmol/L (21-32); CREATININE 0.9 mg/dL (0.55-1.02); SODIUM 129 mmol/L (136-145)
[2017-08-05 11:49] LABS: POTASSIUM 4.6 mmol/L (3.5-5.1)
[2017-08-05 11:50] LABS: GLUCOSE,RANDOM 305 mg/dL (74-106)
--- NOTE | 2017-08-05 13:22 | PN ---
Teaching Attending Note Name of Resident: Cami Jaffe ATTENDING PHYSICIAN STATEMENT I saw and evaluated the patient. I reviewed the resident's note and discussed the case with the resident. I agree with the resident's findings and plan as documented. SUBJECTIVE: OBJECTIVE: ASSESSMENT AND PLAN: DKA Recurrent UTI Leukocytosis - leukemoid rxn v. sepsis Await c/s Continue ceftriaxone
--- NOTE | 2017-08-05 13:45 | PN ---
Progress Note (short form) - Note Progress Note: Currently off IV Insulin drip. SQ insulin started yesterday. No CP or SOB. AG normalizing. Intake & Output 08/02/17 08/03/17 08/04/17 08/05/17 23:59 23:59 23:59 23:59 Output Total 400 Balance -400 Weight 150 lb 150 lb Last Vital Signs Temp Pulse Resp BP Pulse Ox 98.9 F 116 H 16 132/75 99 08/05/17 12:45 08/05/17 12:45 08/05/17 12:45 08/05/17 12:45 08/05/17 12:45 Active Medications Acetaminophen (Tylenol -) 650 mg PO Q4H PRN PRN Reason: PAIN LEVEL 6-10 Amitriptyline HCl (Elavil -) 75 mg PO HS [facility] Last Admin: 08/04/17 22:08 Dose: 75 mg Chlorhexidine Gluconate (Hibiclens For Decolonization -) 1 applic TP HS [facility] Enoxaparin Sodium (Lovenox -) 40 mg SQ DAILY [facility] Last Admin: 08/05/17 10:31 Dose: 40 mg Ceftriaxone Sodium 1 gm/ (Dextrose) 50 mls @ 100 mls/hr IVPB DAILY [facility]; Protocol Last Admin: 08/05/17 10:21 Dose: 100 mls/hr Potassium Chloride/Dextrose/Sod Cl (D5-1/2ns+10 Meq Kcl -) 10 meq in 1,000 mls @ 100 mls/hr IV ASDIR [facility] Last Admin: 08/05/17 10:19 Dose: 100 mls/hr Insulin Aspart (Novolog Vial Sliding Scale -) 1 vial SQ ACHS [facility]; Protocol Mupirocin (Bactroban Ointment (For Decolonization) -) 1 applic NS BID [facility] Stop: 08/09/17 21:59 Ranitidine HCl (Zantac -) 150 mg PO BID PRN PRN Reason: Abdominal Pain Last Admin: 08/05/17 06:56 Dose: 150 mg Gen: NAD Heart: S1S2, regular Lung: decreased breath sounds at the bases Abd: soft, nontender Ext: no edema Laboratory Results - last 24 hr 08/04/17 08/04/17 08/04/17 15:42 17:21 18:00 WBC RBC Hgb Hct MCV MCH MCHC RDW Plt Count MPV Neutrophils % Lymphocytes % Monocytes % Eosinophils % Basophils % Nucleated RBC % Sodium Potassium Chloride Carbon Dioxide Anion Gap BUN Creatinine Creat Clearance w eGFR POC Glucometer 305.25585 228.25138 192.26556 Random Glucose Calcium Magnesium Total Bilirubin AST ALT Alkaline Phosphatase Total Protein Albumin Acetone, Qual 08/04/17 08/04/17 08/04/17 19:23 20:07 21:21 WBC RBC Hgb Hct MCV MCH MCHC RDW Plt Count MPV Neutrophils % Lymphocytes % Monocytes % Eosinophils % Basophils % Nucleated RBC % Sodium Potassium Chloride Carbon Dioxide Anion Gap BUN Creatinine Creat Clearance w eGFR POC Glucometer 113.75647 184.93466 200.75473 Random Glucose Calcium Magnesium Total Bilirubin AST ALT Alkaline Phosphatase Total Protein Albumin Acetone, Qual 08/04/17 08/05/17 08/05/17 22:00 01:17 02:33 WBC RBC Hgb Hct MCV MCH MCHC RDW Plt Count MPV Neutrophils % Lymphocytes % Monocytes % Eosinophils % Basophils % Nucleated RBC % Sodium 133 L 136 Potassium 3.9 4.2 Chloride 104 107 Carbon Dioxide 16 L 17 L Anion Gap 13 12 BUN 12 8 Creatinine 0.9 0.9 Creat Clearance w eGFR POC Glucometer 124.73534 Random Glucose 183 H 99 Calcium 7.4 L 7.7 L Magnesium Total Bilirubin AST ALT Alkaline Phosphatase Total Protein Albumin Acetone, Qual 08/05/17 08/05/17 08/05/17 03:53 06:25 07:08 WBC 30.5 H* RBC 4.03 Hgb 13.0 Hct 38.7 MCV 96.0 MCH 32.2 MCHC 33.6 RDW 13.1 Plt Count 345 D MPV 8.1 Neutrophils % 88.1 H Lymphocytes % 7.5 L D Monocytes % 3.9 Eosinophils % 0.1 D Basophils % 0.4 D Nucleated RBC % 0 Sodium Potassium Chloride Carbon Dioxide Anion Gap BUN Creatinine Creat Clearance w eGFR POC Glucometer 157.20384 206.22549 Random Glucose Calcium Magnesium Total Bilirubin AST ALT Alkaline Phosphatase Total Protein Albumin Acetone, Qual 08/05/17 08/05/17 08/05/17 08:48 08:48 08:48 WBC 27.4 H RBC 4.14 Hgb 12.8 Hct 38.7 MCV 93.6 MCH 30.9 MCHC 33.0 RDW 13.4 Plt Count 462 H D MPV 8.0 Neutrophils % No Result Required. Lymphocytes % No Result Required. Monocytes % Eosinophils % Basophils % Nucleated RBC % 0 Sodium 131 L Potassium 4.4 Chloride 100 Carbon Dioxide 17 L Anion Gap 14 BUN 6 L Creatinine 0.9 Creat Clearance w eGFR > 60 POC Glucometer Random Glucose 269 H Calcium 8.3 L Magnesium 2.2 Total Bilirubin 0.8 D AST 10 L ALT 16 Alkaline Phosphatase 127 H Total Protein 6.8 Albumin 3.2 L Acetone, Qual Trace H 08/05/17 08/05/17 08/05/17 08:48 10:18 11:00 WBC RBC Hgb Hct MCV MCH MCHC RDW Plt Count MPV Neutrophils % Lymphocytes % Monocytes % Eosinophils % Basophils % Nucleated RBC % Sodium 129 L Potassium 4.6 Chloride 101 Carbon Dioxide 15 L Anion Gap 13 BUN 6 L Creatinine 0.9 Creat Clearance w eGFR POC Glucometer 310.77404 Random Glucose 305 H* Calcium 8.0 L Magnesium Cancelled Total Bilirubin AST ALT Alkaline Phosphatase Total Protein Albumin Acetone, Qual 08/05/17 12:30 WBC RBC Hgb Hct MCV MCH MCHC RDW Plt Count MPV Neutrophils % Lymphocytes % Monocytes % Eosinophils % Basophils % Nucleated RBC % Sodium Potassium Chloride Carbon Dioxide Anion Gap BUN Creatinine Creat Clearance w eGFR POC Glucometer 264.36050 Random Glucose Calcium Magnesium Total Bilirubin AST ALT Alkaline Phosphatase Total Protein Albumin Acetone, Qual ASSESSMENT AND PLAN: Diabetic Ketoacidosis UTI Diabetic Gastroparesis - IVF - SQ long acting Insulin and sliding scale - Follow BGM - Replace lytes - ABX per ID - VTE prophylaxis - Can be monitored on the floor Dr Thomas
[2017-08-05] MEDS ORDERED: PANTOPRAZOLE SODIUM 40 MG VIAL IVPUSH ONE (14:29)
[2017-08-05 17:26] LABS: ALBUMIN 3.1 g/dl (3.4-5.0); ANION GAP 14 (8-16); BILIRUBIN,TOTAL 0.5 mg/dL (0.2-1.0); BLOOD UREA NITROGEN 4 mg/dL (7-18); CALCIUM 7.9 mg/dL (8.5-10.1); CHLORIDE 99 mmol/L (98-107); CO2 19 mmol/L (21-32); CREATININE 0.8 mg/dL (0.55-1.02); GLUCOSE,RANDOM 251 mg/dL (74-106); SGPT/ALT 17 U/L (12-78); SODIUM 132 mmol/L (136-145); TOT PROT 6.6 g/dl (6.4-8.2)
[2017-08-05 17:27] LABS: ALK PHOS 119 U/L (45-117)
[2017-08-05] MEDS ORDERED: ONDANSETRON 4 MG/2 ML VIAL IVPUSH PRN (17:28)
[2017-08-05 17:34] LABS: POTASSIUM 4.6 mmol/L (3.5-5.1); SGOT/AST 18 U/L (15-37)
[2017-08-05] MEDS ORDERED: RANITIDINE HCL 150 MG TABLET (FP) PO PRN (17:54)
[2017-08-05] MEDS ORDERED: ACETAMINOPHEN 325 MG TABLET (FP) PO PRN (17:54)
--- NOTE | 2017-08-05 19:39 | CONSULT ---
Consult Consult Specialty:: Endocrinology Referred by:: Kylee Ornelas Reason for Consultation:: DKA - History of Present Illness Chief Complaint: Nausea, vomiting History of Present Illness: This is a 27 yr old woman with h/o T1DM since age 7, HTN, gastroparesis, hx of recurrent UTI's, multiple episodes of DKA who presented with 1 day of foul smelling urine and 4 episodes of watery-bilious nonbloody emesis over past 2 days. Pt found to be in DKA with high anion gap and positive acetone. Was treated with IV hydration and IV insulin with normalization of A Gap. CO2 has remained slightly below normal with the last reading of 19. BGM's at home have been ranging 50 to 200. She had not been eating much b/o acid reflux symptoms and loss of appetite. Her health insurance was cancelled a few months ago and she had been using a friend's Insulin. She took no Insulin for two days prior to admission. Takes Basaglar 50 units at HS and Humalog 18 to 22 units TID with meals. Denies any visual symptoms or paresthesia of feet. Last Oph exam was in October. - History Source History Provided By: Patient, Medical Record - Past Medical History Gastrointestinal: Yes: Constipation, Pancreatitis, Other (Diabetic Gastroparesis ) ...LMP: 10/30/16 ...LMP Comment: depo shot Psych: Yes: Anxiety, Depression Endocrine: Yes: Diabetes Mellitus (type 1), Other (dka) - Past Surgical History Past Surgical History: Yes: Upper Endoscopy (spring diabetic gastroparesis) - Alcohol/Substance Use Hx Alcohol Use: No History of Substance Use: reports: Marijuana - Smoking History Smoking history: Never smoked Have you smoked in the past 12 months: Yes Aproximately how many cigarettes per day: 10 - Social History ADL: Independent 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 History of Recent Travel: No Home Medications - Allergies Allergies/Adverse Reactions: Allergies Allergy/AdvReac Type Severity Reaction Status Date / Time No Known Allergies Allergy Verified 02/28/17 21:24 - Home Medications Home Medications: Ambulatory Orders Insulin Lispro [Humalog] 0 unit SQ ASDIR 07/18/13 Amitriptyline HCl [Elavil -] 3 tab PO DAILY #0 06/27/15 Acetaminophen [Tylenol] 650 mg PO Q4H PRN #20 tablet 01/17/16 Metoclopramide HCl [Reglan] 10 mg PO Q6H PRN #15 tablet 01/17/16 Ranitidine HCl [Zantac] 150 mg PO BID PRN #20 tablet 01/17/16 Insulin Glargine,Hum.rec.anlog [Basaglar Kwikpen U-100] 60 unit SQ HS 12/08/16 Nitrofurantoin Monohyd/M-Cryst [Macrobid -] 100 mg PO BID #14 capsule 03/02/17 Family Disease History - Family Disease History Family Disease History: Diabetes: Grandparent, Other: Father (healthy and living ), Mother (healthy and living) Other Family History: No family h/o DM Review of Systems - Review of Systems Constitutional: reports: Loss of Appetite, Malaise Eyes: reports: No Symptoms HENT: reports: No Symptoms Neck: reports: No Symptoms Cardiovascular: reports: No Symptoms Respiratory: reports: No Symptoms Gastrointestinal: reports: No Symptoms Genitourinary: reports: Dysuria Breasts: reports: No Symptoms Reported Musculoskeletal: reports: No Symptoms Neurological: reports: No Symptoms Endocrine: reports: No Symptoms Hematology/Lymphatic: reports: No Symptoms Physical Exam Vital Signs: Vital Signs Temperature 98.4 F 08/05/17 18:17 Pulse Rate 110 H 08/05/17 18:17 Respiratory Rate 18 08/05/17 18:17 Blood Pressure 157/94 08/05/17 18:17 O2 Sat by Pulse Oximetry (%) 99 08/05/17 14:44 Constitutional: Yes: No Distress, Calm Eyes: Yes: Conjunctiva Clear, EOM Intact HENT: Yes: Atraumatic, Normocephalic Neck: Yes: Supple, Trachea Midline Cardiovascular: Yes: Regular Rate and Rhythm Respiratory: Yes: Regular, CTA Bilaterally Gastrointestinal: Yes: Normal Bowel Sounds, Soft Musculoskeletal: Yes: WNL Extremities: Yes: WNL Edema: No Neurological: Yes: Alert, Oriented Labs: CBC, BMP 08/05/17 08:48 08/05/17 15:15 Assessment/Plan DKA T1DM UTI Gastroparesis Continue D5 1/2NS until pt's apetite is normal Levemir 20 units daily at HS Novolog SS coverage IV abx CMP, Phos, mag in AM
[2017-08-05] MEDS ORDERED: INSULIN (LEVEMIR) 100 UNITS/ML UNITS SQ ONE (21:35)
--- NOTE | 2017-08-05 21:42 | PN ---
Physical Exam: SUBJECTIVE: Patient seen and examined OBJECTIVE: Vital Signs Period Temp Pulse Resp BP Sys/Plata Pulse Ox Last 24 Hr 97.9 F-98.9 F 110-122 14-18 132-159/75-101 96-100 GENERAL: The patient is awake, alert, and fully oriented, in no acute distress. HEAD: Normal with no signs of trauma. EYES: PERRL, extraocular movements intact, sclera anicteric, conjunctiva clear. No ptosis. ENT: Ears normal, nares patent, oropharynx clear without exudates, moist mucous membranes. NECK: Trachea midline, full range of motion, supple. LUNGS: Breath sounds equal, clear to auscultation bilaterally, no wheezes, no crackles, no accessory muscle use. HEART: Regular rate and rhythm, S1, S2 without murmur, rub or gallop. ABDOMEN: Soft, nontender, nondistended, normoactive bowel sounds, no guarding, no rebound, no hepatosplenomegaly, no masses. EXTREMITIES: 2+ pulses, warm, well-perfused, no edema. NEUROLOGICAL: Cranial nerves II through XII grossly intact. Normal speech, gait not observed. PSYCH: Normal mood, normal affect. SKIN: Warm, dry, normal turgor, no rashes or lesions noted Laboratory Results - last 24 hr 08/04/17 08/05/17 08/05/17 22:00 01:17 02:33 WBC RBC Hgb Hct MCV MCH MCHC RDW Plt Count MPV Neutrophils % Lymphocytes % Monocytes % Eosinophils % Basophils % Nucleated RBC % Sodium 133 L 136 Potassium 3.9 4.2 Chloride 104 107 Carbon Dioxide 16 L 17 L Anion Gap 13 12 BUN 12 8 Creatinine 0.9 0.9 Creat Clearance w eGFR POC Glucometer [phone] Random Glucose 183 H 99 Calcium 7.4 L 7.7 L Magnesium Total Bilirubin AST ALT Alkaline Phosphatase Total Protein Albumin Acetone, Qual 08/05/17 08/05/17 08/05/17 03:53 06:25 07:08 WBC 30.5 H* RBC 4.03 Hgb 13.0 Hct 38.7 MCV 96.0 MCH 32.2 MCHC 33.6 RDW 13.1 Plt Count 345 D MPV 8.1 Neutrophils % 88.1 H Lymphocytes % 7.5 L D Monocytes % 3.9 Eosinophils % 0.1 D Basophils % 0.4 D Nucleated RBC % 0 Sodium Potassium Chloride Carbon Dioxide Anion Gap BUN Creatinine Creat Clearance w eGFR POC Glucometer 157.95271 206.12260 Random Glucose Calcium Magnesium Total Bilirubin AST ALT Alkaline Phosphatase Total Protein Albumin Acetone, Qual 08/05/17 08/05/17 08/05/17 08:48 08:48 08:48 WBC 27.4 H RBC 4.14 Hgb 12.8 Hct 38.7 MCV 93.6 MCH 30.9 MCHC 33.0 RDW 13.4 Plt Count 462 H D MPV 8.0 Neutrophils % No Result Required. Lymphocytes % No Result Required. Monocytes % Eosinophils % Basophils % Nucleated RBC % 0 Sodium 131 L Potassium 4.4 Chloride 100 Carbon Dioxide 17 L Anion Gap 14 BUN 6 L Creatinine 0.9 Creat Clearance w eGFR > 60 POC Glucometer Random Glucose 269 H Calcium 8.3 L Magnesium 2.2 Total Bilirubin 0.8 D AST 10 L ALT 16 Alkaline Phosphatase 127 H Total Protein 6.8 Albumin 3.2 L Acetone, Qual Trace H 08/05/17 08/05/17 08/05/17 08:48 10:18 11:00 WBC RBC Hgb Hct MCV MCH MCHC RDW Plt Count MPV Neutrophils % Lymphocytes % Monocytes % Eosinophils % Basophils % Nucleated RBC % Sodium 129 L Potassium 4.6 Chloride 101 Carbon Dioxide 15 L Anion Gap 13 BUN 6 L Creatinine 0.9 Creat Clearance w eGFR POC Glucometer [phone] Random Glucose 305 H* Calcium 8.0 L Magnesium Cancelled Total Bilirubin AST ALT Alkaline Phosphatase Total Protein Albumin Acetone, Qual 08/05/17 08/05/17 08/05/17 12:30 15:15 16:51 WBC RBC Hgb Hct MCV MCH MCHC RDW Plt Count MPV Neutrophils % Lymphocytes % Monocytes % Eosinophils % Basophils % Nucleated RBC % Sodium 132 L Potassium 4.6 Chloride 99 Carbon Dioxide 19 L Anion Gap 14 BUN 4 L Creatinine 0.8 Creat Clearance w eGFR > 60 POC Glucometer 264.39170 279 Random Glucose 251 H Calcium 7.9 L Magnesium Total Bilirubin 0.5 D AST 18 ALT 17 Alkaline Phosphatase 119 H Total Protein 6.6 Albumin 3.1 L Acetone, Qual Active Medications Generic Name Dose Route Start Last Admin Trade Name Freq PRN Reason Stop Dose Admin Acetaminophen 650 mg 08/05/17 17:54 Tylenol - PO Q4H PRN PAIN LEVEL 6-10 Amitriptyline HCl 75 mg 08/05/17 22:00 Elavil - PO HS KARLENE Enoxaparin Sodium 40 mg 08/06/17 10:00 Lovenox - SQ DAILY KARLENE Potassium Chloride/Dextrose/Sod Cl 10 meq in 1,000 mls @ 100 mls/hr 08/05/17 09:00 08/05/17 10:19 D5-1/2ns+10 Meq Kcl - IV 100 mls/hr ASDIR KARLENE Administration Ceftriaxone Sodium 1 gm/ 50 mls @ 100 mls/hr 08/06/17 10:00 Dextrose IVPB DAILY KARLENE Protocol Insulin Aspart 1 vial 08/06/17 07:00 Novolog Vial Sliding Scale - SQ TIDAC KARLENE Protocol Insulin Aspart 1 vial 08/05/17 22:00 Novolog Vial Sliding Scale - SQ HS KARLENE Protocol Insulin Detemir 20 units 08/05/17 22:00 Levemir Vial SQ HS KARLENE Ondansetron HCl 4 mg 08/05/17 17:28 08/05/17 17:59 Zofran Injection IVPUSH 4 mg Q6H PRN Administration NAUSEA AND/OR VOMITING Ranitidine HCl 150 mg 08/05/17 17:54 Zantac - PO Q12H PRN Abdominal Pain ASSESSMENT/PLAN: Patient is a 27 year old female witha significant past medical history of DKA, HTN, gastroparesis, hx of recurrent UTI's, multiple episodes of DKA presents with 1 day of foul smelling urine a.w 4 episodes of watery-bilious nonbloody emesis over past 2 days. denies fevers, chest pain, sob, hematochezia, diarrhea , constipation. ID: UTI per UA, UC pending On Ceftriaxone 1 gram daily Given Zosyn x 1 today IV fluids for hydration Monitor intake and output Lactic acidosis resolved ID following Endocrine: Hyperglycemia, uncontrolled DKA s/p insulin drip Anion gap now closed Now on d5 1/2 10meq IVF Novolog SS and Levemir Diabetic gastroparesis, chronic On zantac GI consult if no improvement Card: Hypertension started on Lisinopril F.E.N. Fluids: NS Electrolytes: monitor daily Nutrition: npo while on insulin drip DVT: Lovenox GI: Zantac Full code
[2017-08-05] MEDS ORDERED: AMITRIPTYLINE HCL 75 MG TABLET PO SCH (22:00)
[2017-08-05] MEDS ORDERED: INSULIN (LEVEMIR) 100 UNITS/ML UNITS SQ SCH (22:00)
[2017-08-06] MEDS: INSULIN SLIDING SCALE (NOVOLOG) 1 VIAL SQ SCH ×2 (06:11→12:05)
[2017-08-06 07:48] LABS: BASO % 0.4 % (0-2.0); EOS % 0.1 % (0-4.5); HEMATOCRIT 36.7 % (32.4-45.2); HEMOGLOBIN 12.4 GM/dL (10.7-15.3); LYMPH % 15.9 % (8-40); MCH 31.1 pg (25.7-33.7); MCHC 33.7 g/dl (32.0-36.0); MEAN CELL VOLUME 92.4 fl (80-96); MEAN PLT VOLUME 7.7 fl (7.5-11.1); MONO % 4.9 % (3.8-10.2); NEUT % 78.7 % (42.8-82.8); PLATELET COUNT 386 K/MM3 (134-434); RBC 3.97 M/mm3 (3.60-5.2); RDW 13.1 % (11.6-15.6); WHITE BLOOD COUNT 15.1 K/mm3 (4.0-10.0)
[2017-08-06] MEDS: D5-1/2NS+10 MEQ KCL - 10 MEQ/1,000 ML INFUS.BAG IV SCH (08:12)
[2017-08-06 08:27] LABS: PHOSPHOROUS 1.5 mg/dL (2.5-4.9)
--- NOTE | 2017-08-06 08:49 | PN ---
Progress Note (short form) - Note Progress Note: Feels better Less Nausea Vital Signs Period Temp Pulse Resp BP Sys/Plata Pulse Ox Last 24 Hr 97.9 F-98.9 F 104-119 14-20 132-157/75-100 96-99 PE: AOx3 Neck: Supple, No JVD HEENT: PERRL, EOMI Lungs: CTA CVS: s1S2 Abd: Benign Ext: No edema Neuro: No focal deficit CMP Sodium 132 mmol/L (136-145) L 08/06/17 06:30 Potassium 4.1 mmol/L (3.5-5.1) 08/06/17 06:30 Chloride 102 mmol/L (98-107) 08/06/17 06:30 Carbon Dioxide 21 mmol/L (21-32) 08/06/17 06:30 Anion Gap 9 (8-16) 08/06/17 06:30 BUN 4 mg/dL (7-18) L 08/06/17 06:30 Creatinine 0.7 mg/dL (0.55-1.02) 08/06/17 06:30 Creat Clearance w eGFR > 60 (>60) 08/06/17 06:30 POC Glucometer 318 UNITS (80-120) 08/06/17 12:02 Random Glucose 260 mg/dL (74-106) H 08/06/17 06:30 Hemoglobin A1c % 8.4 % (4.8-6.0) H 08/04/17 07:02 Lactic Acid 1.9 mmol/L (0.0-2.0) 08/04/17 07:02 Calcium 8.1 mg/dL (8.5-10.1) L 08/06/17 06:30 Phosphorus 1.5 mg/dL (2.5-4.9) L 08/06/17 06:30 Magnesium 2.2 mg/dL (1.8-2.4) 08/06/17 06:30 Total Bilirubin 0.4 mg/dL (0.2-1.0) 08/06/17 06:30 AST 8 U/L (15-37) L 08/06/17 06:30 ALT 16 U/L (12-78) 08/06/17 06:30 Alkaline Phosphatase 122 U/L (45-117) H 08/06/17 06:30 Total Protein 6.4 g/dl (6.4-8.2) 08/06/17 06:30 Albumin 3.0 g/dl (3.4-5.0) L 08/06/17 06:30 Lipase 44 U/L (73-393) L 08/04/17 00:13 Serum , Qual Negative 08/04/17 00:13 DKA T1DM UTI Gastroparesis Discussed need to take Long acting Insulin everyday as prescribed to prevent DKA. Pt veralizes understanding. Monitor BGM Levemir 20 units daily at HS Novolog SS coverage IV abx Will F/u
[2017-08-06] MEDS ORDERED: cefTRIAXone SODIUM 1 GM VIAL ONE (09:07)
[2017-08-06] MEDS ORDERED: DEXTROSE 5%-WATER - 50 ML IVPB ONE (09:07)
[2017-08-06] MEDS: ENOXAPARIN NA (PORCINE) 40 MG/0.4 ML DISP.SYRIN SQ SCH ×2 (09:37→09:41)
[2017-08-06] MEDS ORDERED: LISINOPRIL 5 MG TABLET (FP) PO SCH (10:00)
[2017-08-06] MEDS ORDERED: CEFTRIAXONE 1 GM in SODIUM CHLORIDE 100 ML IVPB SCH (10:00)
[2017-08-06 10:08] LABS: ALK PHOS 122 U/L (45-117); ANION GAP 9 (8-16); BILIRUBIN,TOTAL 0.4 mg/dL (0.2-1.0); BLOOD UREA NITROGEN 4 mg/dL (7-18); CALCIUM 8.1 mg/dL (8.5-10.1); CHLORIDE 102 mmol/L (98-107); CO2 21 mmol/L (21-32); CREATININE 0.7 mg/dL (0.55-1.02); GLUCOSE,RANDOM 260 mg/dL (74-106); MAGNESIUM 2.2 mg/dL (1.8-2.4); POTASSIUM 4.1 mmol/L (3.5-5.1); SGOT/AST 8 U/L (15-37); SGPT/ALT 16 U/L (12-78); SODIUM 132 mmol/L (136-145); TOT PROT 6.4 g/dl (6.4-8.2)
[2017-08-06] MEDS ORDERED: MAGNESIUM OXIDE 400 MG TABLET (FP) PO ONE (13:28)
[2017-08-06] MEDS ORDERED: NAPH,MB-DB/K PH,MBDB POWDER PACKET PO SCH (14:00)
--- NOTE | 2017-08-06 14:19 | PN ---
Physical Exam: SUBJECTIVE: Patient seen and examined, wants to leave AMA. OBJECTIVE: Spoke to patient who wants to leave AMA, asked her to re-consider since she has urosepsis and still under treatment with IV antibiotics. Explained to her the importance monitoring labs as she was in DKA on this admission. She is aware of the risks, and does not want to stay, she signed AMA form. Patient has capacity to make her own medical decisions. I will call antibiotics for 10 more days into her pharmacy, she is to follow up with her PCP. She was started on Lisinopril for high BP which has also been called into her pharmacy. Vital Signs Period Temp Pulse Resp BP Sys/Plata Pulse Ox Last 24 Hr 97.9 F-98.4 F 102-119 18-20 142-157/86-100 96-99 GENERAL: The patient is awake, alert, and fully oriented, in no acute distress. HEAD: Normal with no signs of trauma. EYES: PERRL, extraocular movements intact, sclera anicteric, conjunctiva clear. No ptosis. ENT: Ears normal, nares patent, oropharynx clear without exudates, moist mucous membranes. NECK: Trachea midline, full range of motion, supple. LUNGS: Breath sounds equal, clear to auscultation bilaterally HEART: Regular rate and rhythm ABDOMEN: Soft, nontender, nondistended, normoactive bowel sounds, no guarding, no rebound, no hepatosplenomegaly, no masses. EXTREMITIES: no edema. NEUROLOGICAL: Normal speech, gait not observed. PSYCH: Normal mood, normal affect. SKIN: Warm, dry, normal turgor, no rashes or lesions noted Laboratory Results - last 24 hr 08/05/17 08/05/17 08/05/17 15:15 16:51 23:00 WBC RBC Hgb Hct MCV MCH MCHC RDW Plt Count MPV Neutrophils % Lymphocytes % Monocytes % Eosinophils % Basophils % Nucleated RBC % Sodium 132 L Potassium 4.6 Chloride 99 Carbon Dioxide 19 L Anion Gap 14 BUN 4 L Creatinine 0.8 Creat Clearance w eGFR > 60 POC Glucometer 279 303 Random Glucose 251 H Calcium 7.9 L Phosphorus Magnesium Total Bilirubin 0.5 D AST 18 ALT 17 Alkaline Phosphatase 119 H Total Protein 6.6 Albumin 3.1 L 08/06/17 08/06/17 08/06/17 06:01 06:30 06:30 WBC RBC Hgb Hct MCV MCH MCHC RDW Plt Count MPV Neutrophils % Lymphocytes % Monocytes % Eosinophils % Basophils % Nucleated RBC % Sodium Cancelled 132 L Potassium Cancelled 4.1 Chloride Cancelled 102 Carbon Dioxide Cancelled 21 Anion Gap Cancelled 9 BUN Cancelled 4 L Creatinine Cancelled 0.7 Creat Clearance w eGFR Cancelled > 60 POC Glucometer 250 Random Glucose Cancelled 260 H Calcium Cancelled 8.1 L Phosphorus 1.5 L Magnesium Cancelled 2.2 Total Bilirubin Cancelled 0.4 AST Cancelled 8 L ALT Cancelled 16 Alkaline Phosphatase Cancelled 122 H Total Protein Cancelled 6.4 Albumin Cancelled 3.0 L 08/06/17 08/06/17 06:45 12:02 WBC 15.1 H D RBC 3.97 Hgb 12.4 Hct 36.7 MCV 92.4 MCH 31.1 MCHC 33.7 RDW 13.1 Plt Count 386 MPV 7.7 Neutrophils % 78.7 Lymphocytes % 15.9 D Monocytes % 4.9 Eosinophils % 0.1 Basophils % 0.4 Nucleated RBC % 0 Sodium Potassium Chloride Carbon Dioxide Anion Gap BUN Creatinine Creat Clearance w eGFR POC Glucometer 318 Random Glucose Calcium Phosphorus Magnesium Total Bilirubin AST ALT Alkaline Phosphatase Total Protein Albumin Active Medications Generic Name Dose Route Start Last Admin Trade Name Freq PRN Reason Stop Dose Admin Acetaminophen 650 mg 08/05/17 17:54 Tylenol - PO Q4H PRN PAIN LEVEL 6-10 Amitriptyline HCl 75 mg 08/05/17 22:00 08/05/17 23:04 Elavil - PO 75 mg HS KARLENE Administration Enoxaparin Sodium 40 mg 08/06/17 10:00 08/06/17 09:41 Lovenox - SQ Not Given DAILY [facility] Ceftriaxone Sodium 1 gm/ 100 mls @ 100 mls/hr 08/06/17 10:00 08/06/17 09:37 Sodium Chloride IVPB 100 mls/hr DAILY KARLENE Administration Protocol Insulin Aspart 1 vial 08/06/17 07:00 08/06/17 12:05 Novolog Vial Sliding Scale - SQ 10 unit TIDAC KARLENE Administration Protocol Insulin Aspart 1 vial 08/05/17 22:00 08/05/17 23:05 Novolog Vial Sliding Scale - SQ 8 unit HS [facility] Administration Protocol Insulin Detemir 20 units 08/05/17 22:00 08/05/17 23:05 Levemir Vial SQ 20 unit HS KARLENE Administration Lisinopril 5 mg 08/06/17 10:00 08/06/17 09:37 Prinivil PO 5 mg DAILY KARLENE Administration Magnesium Oxide 400 mg 08/06/17 13:28 Mag-Ox - PO 08/06/17 13:29 ONCE ONE Ondansetron HCl 4 mg 08/05/17 17:28 08/05/17 17:59 Zofran Injection IVPUSH 4 mg Q6H PRN Administration NAUSEA AND/OR VOMITING Potassium Phos/Sodium Phos 1 packet 08/06/17 14:00 08/06/17 13:16 Phos-Nak Packet - PO 1 packet TID KRALENE Administration Ranitidine HCl 150 mg 08/05/17 17:54 Zantac - PO Q12H PRN Abdominal Pain ASSESSMENT/PLAN: Patient is a 27 year old female with a significant past medical history of DKA, HTN, gastroparesis, hx of recurrent UTI's, multiple episodes of DKA presents with 1 day of foul smelling urine a.w 4 episodes of watery-bilious nonbloody emesis over past 2 days. The patent has requested to sign out against medical advice. The patient displayed the capacity to make her own medical decisions. Discussed with the patient that the plan is to monitor her labs as she was recently in DKA. She was started on Lisinopril 5mg for her elevated BP and may need up titration of this new medication. She also has urosepsis with treatment with Ceftriaxone 1 gram. The risks regarding leaving the hospital with hyperglycemia and urosepsis have been discussed. All questions were answered fully. The patient understands the risks and is agreeing to leave against medical advice. ID: UTI per UA, UC pending On Ceftriaxone 1 gram daily UC shows sensitivity Nitrofurantoin, med ordered BID x 10 days Endocrine: Hyperglycemia DKA resolved Anion gap now closed Off insulin drip Tolerating meals, stop IV, on SS and Levemir Has home insulin and endocirnologist Diabetic gastroparesis, chronic On zantac Card: Hypertension started on Lisinopril, called into home pharmacy F.E.N. Fluids: NS Electrolytes: monitor daily Nutrition: npo while on insulin drip Patient left AMA. Visit type - Emergency Visit Emergency Visit: Yes ED Registration Date: 08/04/17 Care time: The patient presented to the Emergency Department on the above date and was hospitalized for further evaluation of their emergent condition. - New Patient This patient is new to me today: No - Critical Care Critical Care patient: No - Discharge Referral Referred to [facility] Med [facility] No
[2017-08-06 14:41] VITALS: BP 151/91; PULSE 93; TEMP 98.4
== END 2017-08-06 14:59 | disposition left against medical advice (07) | DRG 720 ==
LOC: JER 21:33 → JERBED 08-04 02:31 → UNDOADMIN 08-04 02:37 → J7W 08-05 13:46
PROVIDERS: ADMIT Internal Medicine; ATTEND Nurse Practitioner Family
DX: A41.9 Sepsis, unspecified organism (principal); E87.2 Acidosis; E11.43 Type 2 diabetes mellitus with diabetic autonomic (poly)neuropathy; E11.65 Type 2 diabetes mellitus with hyperglycemia; K31.84 Gastroparesis; N39.0 Urinary tract infection, site not specified; Z79.4 Long term (current) use of insulin; F17.210 Nicotine dependence, cigarettes, uncomplicated; K21.9 Gastro-esophageal reflux disease without esophagitis; E11.10 Type 2 diabetes mellitus with ketoacidosis without coma; Z87.440 Personal history of urinary (tract) infections
CPT/HCPCS: 36415; 71045-TC-FY; 80048; 80053; 81003; 81015; 82009; 82962; 83036; 83605; 83690; 83735; 84100; 84703; 85025; 87040; 87086; 87186; 93005; 93010; 99285-25; J0131; J7030

== ENCOUNTER 2017-11-21 15:31 | Emergency (ER) | payer OTHER ==
[2017-11-21] MEDS ORDERED: SODIUM CHLORIDE 0.9% 500 ML INFUS.BAG IV ONE (15:40)
--- NOTE | 2017-11-21 15:40 | PDOC ---
History of Present Illness - General Chief Complaint: Pain, Acute Stated Complaint: ABDOMINAL PAIN Time Seen by Provider: 11/21/17 15:38 - History of Present Illness Initial Comments: 27 year old female with history of IDDM on insulin, HTN, gastroparesis, hx of recurrent UTI's, and multiple episodes of DKA presenting with abdominal pain, nausea, and vomiting for the past 2 days. Says that her glucose levels have been elevated all month since changing her basal dose timing from PM to AM and she has also had trouble with her short acting prescription because of insurance issues. she had N/V and abdominal pain since Wednesday. 11/21/17 15:58 Past History - Past Medical History Allergies/Adverse Reactions: Allergies Allergy/AdvReac Type Severity Reaction Status Date / Time No Known Allergies Allergy Verified 11/21/17 15:34 Home Medications: Ambulatory Orders Insulin Lispro [Humalog] 0 unit SQ ASDIR 07/18/13 Amitriptyline HCl [Elavil -] 3 tab PO DAILY #0 06/27/15 Acetaminophen [Tylenol] 650 mg PO Q4H PRN #20 tablet 01/17/16 Metoclopramide HCl [Reglan] 10 mg PO Q6H PRN #15 tablet 01/17/16 Ranitidine HCl [Zantac] 150 mg PO BID PRN #20 tablet 01/17/16 Insulin Glargine,Hum.rec.anlog [Basaglar Kwikpen U-100] 60 unit SQ AM 12/08/16 Lisinopril [Prinivil] 5 mg PO DAILY #30 tablet 08/06/17 Naph,Mb-Db/K pH,Mbdb [PHOS-NaK PACKET -] 1 packet PO TID #20 pow 08/06/17 Anemia: No Asthma: No Cancer: No Cardiac Disorders: No CVA: No COPD: No CHF: No Dementia: No Diabetes: Yes GI Disorders: Yes (gastroparesis) Disorders: No HTN: No Hypercholesterolemia: No Liver Disease: No Psychiatric Problems: Yes (ANXIETY DEPRESSION) Seizures: No Thyroid Disease: No - Surgical History Abdominal Surgery: No Appendectomy: No Cardiac Surgery: No Cholecystectomy: No Lung Surgery: No Neurologic Surgery: No Orthopedic Surgery: No - Family Disease History Family Disease History: Diabetes: Grandparents (great-grandmother) - Immunization History Immunization Up to Date: Yes - Suicide/Smoking/Psychosocial Hx Smoking Status: No Smoking History: Current every day smoker Have you smoked in the past 12 months: Yes Number of Cigarettes Smoked Daily: 10 Information on smoking cessation initiated: No 'Breaking Loose' booklet given: 01/14/17 Hx Alcohol Use: No Drug/Substance Use Hx: No Substance Use Type: Marijuana Hx Substance Use Treatment: No Review of Systems - Review of Systems Constitutional: Yes: Loss of Appetite. No: Chills, Diaphoresis, Fever HEENTM: No: Blurred Vision Respiratory: No: Cough, Shortness of Breath, Productive cough Cardiac (ROS): No: Edema, Irregular Heart Rate, Lightheadedness, Palpitations ABD/GI: Yes: Nausea, Vomiting. No: Diarrhea : No: Dysuria, Discharge, Frequency Musculoskeletal: No: Back Pain, Joint Pain Integumentary: No: Lesions, Lumps, Pallor Neurological: No: Headache, Numbness, Paresthesia Psychiatric: No: Anxiety, Depression Hematologic/Lymphatic: No: Anemia, Blood Clots, Easy Bleeding *Physical Exam - Vital Signs Last Vital Signs Temp Pulse Resp BP Pulse Ox 98.5 F 124 H 22 169/98 98 11/21/17 15:34 11/21/17 15:34 11/21/17 15:34 11/21/17 15:34 11/21/17 15:34 - Physical Exam General Appearance: Yes: Nourished, Appropriately Dressed, Mild Distress HEENT: positive: EOMI, KEYSHA, Normal ENT Inspection, Normal Voice Neck: positive: Trachea midline, Normal Thyroid, Supple. negative: Tender, Rigid Respiratory/Chest: positive: Lungs Clear, Normal Breath Sounds. negative: Chest Tender, Respiratory Distress, Accessory Muscle Use Cardiovascular: positive: Regular Rhythm, Tachycardia. negative: Regular Rate Gastrointestinal/Abdominal: positive: Tender (epigastric tenderness), Flat, Soft , Decreased BS. negative: Normal Bowel Sounds Lymphatic: negative: Adenopathy, Tenderness Musculoskeletal: positive: Normal Inspection, Decreased Range of Motion. negative: CVA Tenderness Extremity: positive: Normal Capillary Refill, Normal Inspection, Normal Range of Motion. negative: Tender Integumentary: positive: Normal Color, Dry, Warm Neurologic: positive: Fully Oriented, Alert, Normal Mood/Affect, Normal Response , Motor Strength 5/5 ED Treatment Course - LABORATORY CBC & Chemistry Diagram: 11/21/17 15:40 09/16/18 15:40 Medical Decision Making - Medical Decision Making 27 year old female with poorly controlled IDDM and multiple episodes of gastroparesis presenting with nausea, vomiting, and abdominal pain suspicious for gastroparesis with lack of bowel movements in 4-5 days along with hypoactive bowel sounds. All labs supporting dehydration/ contraction alkalosis. Given reglan, zofran, IV fluids, and pepcid. Will admit patient for hydration and further workup for gastroparesis. 11/21/17 17:03 Patient changed her mind and wanted to sign out AMA. Will DC patient against medical advice. 11/21/17 17:32 *DC/Admit/Observation/Transfer Diagnosis at time of Disposition: Gastroparesis due to DM - Discharge Dispostion Disposition: AGAINST MEDICAL ADVICE Condition at time of disposition: Stable Decision to Admit order: No - Referrals Referrals: Clare Acevedo MD [Primary Care Provider] - - Patient Instructions Printed Discharge Instructions: DI for Gastroparesis Additional Instructions: You are leaving against our medical advice. Please take control of your blood sugar and take all of your medication as directed. Please follow up with Dr. Whitman tomorrow. Please return to the ED if you have new or worsening symptoms. - Post Discharge Activity
[2017-11-21 15:50] LABS: BASO % 0.7 % (0-2.0); HEMATOCRIT 42.9 % (32.4-45.2); HEMOGLOBIN 14.7 GM/dL (10.7-15.3); LYMPH % 11.4 % (8-40); MCH 31.5 pg (25.7-33.7); MCHC 34.2 g/dl (32.0-36.0); MEAN CELL VOLUME 92.2 fl (80-96); MEAN PLT VOLUME 7.3 fl (7.5-11.1); NEUT % 83.9 % (42.8-82.8); PLATELET COUNT 474 K/MM3 (134-434); RBC 4.65 M/mm3 (3.60-5.2); RDW 13.5 % (11.6-15.6); WHITE BLOOD COUNT 17.9 K/mm3 (4.0-10.0)
[2017-11-21] MEDS ORDERED: ONDANSETRON 4 MG/2 ML VIAL ONE (15:53)
[2017-11-21] MEDS ORDERED: FAMOTIDINE 20 MG/50 ML IVPB 20 MG/50 ML MG IVPB ONE ×2 (15:56→15:57)
[2017-11-21] MEDS ORDERED: METOCLOPRAMIDE HCL INJECTION 10 MG/2 ML VIAL IVPUSH ONE (15:57)
[2017-11-21] MEDS ORDERED: METOCLOPRAMIDE HCL INJECTION 10 MG/2 ML VIAL ONE (15:57)
[2017-11-21] MEDS ORDERED: ONDANSETRON 4 MG/2 ML VIAL IVPUSH ONE (15:57)
[2017-11-21 15:58] LABS: VENOUS PH 7.52 (7.32-7.42)
[2017-11-21 16:05] VITALS: BMI 28.3
[2017-11-21 16:27] LABS: ALBUMIN 3.6 g/dl (3.4-5.0); ANION GAP 18 MMOL/L (8-16); BLOOD UREA NITROGEN 14 mg/dL (7-18); CALCIUM 10.7 mg/dL (8.5-10.1); CHLORIDE 93 mmol/L (98-107); CO2 23 mmol/L (21-32); CREATININE 0.7 mg/dL (0.55-1.3); GLUCOSE,RANDOM 235 mg/dL (74-106); MAGNESIUM 1.6 mg/dL (1.8-2.4); PHOSPHOROUS 3.8 mg/dL (2.5-4.9); POTASSIUM 4.3 mmol/L (3.5-5.1); SGOT/AST 8 U/L (15-37); SGPT/ALT 18 U/L (13-61); SODIUM 134 mmol/L (136-145)
[2017-11-21 16:29] LABS: ALK PHOS 126 U/L (45-117); BILIRUBIN,TOTAL 1.1 mg/dL (0.2-1.0); TOT PROT 7.5 g/dl (6.4-8.2)
--- NOTE | 2017-11-21 16:54 | PDOC ---
Attending Attestation - Resident Resident Name: YomiKeo - ED Attending Attestation I have performed the following: I have examined & evaluated the patient, The case was reviewed & discussed with the resident, I agree w/resident's findings & plan, Exceptions are as noted - HPI HPI: 11/21/17 16:57 27-year-old female with a history of insulin-dependent diabetes, hypertension, frequent gastroparesis attacks presents to the emergency Department with diffuse abdominal pain, nausea and vomiting for 2 days. Reports that this feels similar to her previous gastroparesis attacks. Fingerstick here in the 100s. Denies fevers, chills, chest pain, shortness of breath, weakness/numbness, dizziness, lower extremity edema. Denies any recent travel. - Physicial Exam PE: 11/21/17 16:59 Agree with resident exam - Medical Decision Making 11/21/17 16:59 27-year-old female with a history of multiple medical problems including diabetes and frequent gastroparesis presents emergency Department with nausea vomiting, abdominal pain. Vitals remarkable for tachycardia to the 120s. Exam with mild epigastric tenderness to palpation. Patient appears dry on exam as well. Likely gastroparesis. Michael hydrate patient, check basic labs and reassess. 11/21/17 17:02 Labs with mild hypomagnesemia +leukocytosis to 18, likely reactive 2/2 frequent vomiting Likely gastropariesis Results discussed with pt, however she requests DC as she feels much better. Pt offered repletion of Mg, monitoring, and admission for DM monitoring but she refuses to stay. The patient is clinically sober, free from distracting injury, appears to have intact insight and judgment and reason and in my opinion has the capacity to make decisions. The patient presents with N/V. I have explained that I am concerned that this may represent gastropareisis and PO intolerance; she has verbalized an understanding of my concerns. I have told the patient that if they leave and has recurrent N/V, she could get much worse, could become critically ill, and could possibly become disabled or . I have offered to give the patient more pain medication. I have asked her to stay in the hospital for electrolyte repletion observation, and further treatment. She is unwilling to stay overnight for monitoring. She is refusing any further care and is leaving against medical advice. I am unable to convince the patient to stay, I have asked her to return as soon as possible to complete marquis evaluation. I have answered all their questions. Heart Score/ECG Review #1 11/21/17 16:53 Twelve-lead EKG was performed and reviewed by me. Sinus tachycardia, rate 119. Normal axis and intervals. No ST elevations or T-wave inversions.
[2017-11-21 17:45] VITALS: BP 132/71; PULSE 107; TEMP 98
[2017-11-21] MEDS ORDERED: MAGNESIUM SULF 50% (8.12 MEQ/2 ML-1 GM VIAL) IVPB ONE (17:45)
[2017-11-21] MEDS ORDERED: MAGNESIUM SULFATE IN WATER 2 GM/50 ML IVPB IVPB ONE (17:45)
--- NOTE | 2017-11-22 10:01 | EKG ---
Test Reason : Blood Pressure : / mmHG Vent. Rate : 119 BPM Atrial Rate : 119 BPM P-R Int : 126 ms QRS Dur : 066 ms QT Int : 308 ms P-R-T Axes : 049 009 030 degrees QTc Int : 433 ms SINUS TACHYCARDIA OTHERWISE NORMAL ECG WHEN COMPARED WITH ECG OF 04-AUG-2017 02:23, NO SIGNIFICANT CHANGE WAS FOUND Confirmed by BILL MONTILLA MD ([id number]) on 11/22/2017 10:00:37 AM Referred By: Confirmed By:BILL MONTILLA MD
== END 2017-11-21 17:45 | disposition left against medical advice (07) ==
LOC: JER 15:31
PROC: 3E0337Z Introduction of Electrolytic and Water Balance Substance into Peripheral Vein, Percutaneous Approach (ICD-10-PCS; principal; 2017-11-21)
PROC: 3E033GC Introduction of Other Therapeutic Substance into Peripheral Vein, Percutaneous Approach (ICD-10-PCS; 2017-11-21)
DX: K31.84 Gastroparesis (principal); E11.9 Type 2 diabetes mellitus without complications
CPT/HCPCS: 36415; 80053; 82803; 82962; 83605; 83735; 84100; 84703; 85025; 93005; 93010; 96365; 96375; 99284-25

== ENCOUNTER 2017-12-25 08:49 | Observation (INO) | payer OTHER ==
[2017-12-25] MEDS ORDERED: FAMOTIDINE 20 MG/50 ML IVPB 20 MG/50 ML MG IVPB ONE ×2 (08:59→09:40)
[2017-12-25] MEDS ORDERED: SODIUM CHLORIDE 1,000 ML IV STA ×2 (08:59→10:29)
[2017-12-25] MEDS ORDERED: ONDANSETRON 4 MG/2 ML VIAL IVPUSH ONE (08:59)
--- NOTE | 2017-12-25 09:10 | PDOC ---
History of Present Illness - General Stated Complaint: VOMITING Time Seen by Provider: 12/25/17 08:59 - History of Present Illness Initial Comments: 12/25/17 09:04 27 yo F with h/o HTN, gastroparesis, IDDM on Insulin, multiple episodes of DKA who BIBA abdominal pain, and nausea/vomitting. EMS reports patient with sinus tachycardia, evident on 12 lead EKG, and BS 272 as documented on patient Insulin Pump. Patient reports onset of worsening, retrosternal, burning, sharp, unremitting, abdominal pain, radiating to back beginning Wednesday (12/20/17). Associated with multiple episodes of daily, non bloody, non bilious emesis, aggravated with PO intake. Last BM x 4 days ago. Denies BPR. Reports presenting to PCP Wednesday (12/22/17)for Insulin Pump adjustment. Denies improvement in symptoms following Wednesday. Patient denies MOONEY, neck stiffness, vision change, F,C, SOB, palpitations, leg swelling, leg pain, orthopnea, PND, urinary complaints, hematuria, BPR, diarrhea, lightheadedness, weakness, sensory changes. PMHx: as noted above. Denies h/o ACS/TX, endoscopy, chronic NSAID use. Surgical: Denies h/o abdominal surgery ROS: as noted SHx: 1/2 ppd tobacco use x 5+ years. Denies Etoh, IVDA. Allergies: NKDA Past History - Past Medical History Allergies/Adverse Reactions: Allergies Allergy/AdvReac Type Severity Reaction Status Date / Time No Known Allergies Allergy Verified 12/25/17 09:22 Home Medications: Ambulatory Orders Amitriptyline HCl [Elavil -] 3 tab PO DAILY #0 06/27/15 Acetaminophen [Tylenol] 650 mg PO Q4H PRN #20 tablet 01/17/16 Metoclopramide HCl [Reglan] 10 mg PO Q6H PRN #15 tablet 01/17/16 Ranitidine HCl [Zantac] 150 mg PO BID PRN #20 tablet 01/17/16 Atorvastatin Ca [Lipitor] 40 mg PO HS 12/25/17 Insulin Lispro [Humalog] 100 unit SQ ASDIR 12/25/17 Anemia: No Asthma: No Cancer: No Cardiac Disorders: No CVA: No COPD: No CHF: No Dementia: No Diabetes: Yes GI Disorders: Yes (gastroparesis) Disorders: No HTN: No Hypercholesterolemia: No Liver Disease: No Psychiatric Problems: Yes (ANXIETY DEPRESSION) Seizures: No Thyroid Disease: No - Surgical History Abdominal Surgery: No Appendectomy: No Cardiac Surgery: No Cholecystectomy: No Lung Surgery: No Neurologic Surgery: No Orthopedic Surgery: No - Family Disease History Family Disease History: Diabetes: Grandparents (great-grandmother) - Immunization History Immunization Up to Date: Yes - Suicide/Smoking/Psychosocial Hx Smoking Status: No Smoking History: Never smoked Have you smoked in the past 12 months: Yes Number of Cigarettes Smoked Daily: 10 'Breaking Loose' booklet given: 01/14/17 Hx Alcohol Use: No Drug/Substance Use Hx: No Substance Use Type: None Hx Substance Use Treatment: No Review of Systems - Review of Systems Comments:: 12/25/17 09:10 GENERAL/CONSTITUTIONAL: No fever or chills. No weakness. HEAD, EYES, EARS, NOSE AND THROAT: No change in vision. No ear pain or discharge. No sore throat. CARDIOVASCULAR: No chest pain or shortness of breath RESPIRATORY: No cough, wheezing, or hemoptysis. GASTROINTESTINAL: + Abdominal pain, nausea, vomiting, constipation. No diarrhea. GENITOURINARY: No dysuria, frequency, or change in urination. MUSCULOSKELETAL: No joint or muscle swelling or pain. No neck or back pain. SKIN: No rash NEUROLOGIC: No headache, vertigo, loss of consciousness, or change in strength/ sensation. ENDOCRINE: No increased thirst. No abnormal weight change HEMATOLOGIC/LYMPHATIC: No anemia, easy bleeding, or history of blood clots. ALLERGIC/IMMUNOLOGIC: No hives or skin allergy. *Physical Exam - Physical Exam Comments: 12/25/17 09:11 GENERAL: Awake, alert, and fully oriented, in no acute distress HEAD: No signs of trauma, normocephalic, atraumatic EYES: PERRLA, EOMI, sclera anicteric, conjunctiva clear ENT:+ Dry mucous membranes. Auricles normal inspection, hearing grossly normal, nares patent, oropharynx clear without exudates. NECK: Normal ROM, supple, no lymphadenopathy, JVD, or masses LUNGS: No distress, speaks full sentences, clear to auscultation bilaterally HEART: Irregular rate and regular rhythm, normal S1 and S2, no murmurs, rubs or gallops, peripheral pulses normal and equal bilaterally. ABDOMEN: + Epigastric ttp. Soft, normoactive bowel sounds. No guarding, no rebound, no rigidity. No masses. Neg CVA ttp. EXTREMITIES : Normal inspection, Normal range of motion, no edema. No clubbing or cyanosis. NEUROLOGICAL: Cranial nerves II through XII grossly intact. Normal speech, no focal sensorimotor deficits SKIN: Warm, Dry, normal turgor, no rashes or lesions noted ED Treatment Course - LABORATORY CBC & Chemistry Diagram: 12/25/17 09:35 12/25/17 09:35 Medical Decision Making - Medical Decision Making 12/25/17 09:10 27 yo F with h/o HTN, gastroparesis, IDDM on Insulin, multiple episodes of DKA who BIBA abdominal pain, and nausea/vomitting. HR , vitals otherwise wnl, AF. + Epigastric ttp. ACS/TX r/o. Will consider biliary disease, vs. gastritis/ esophagitis, pancreatitis, gastroenteritis as source of epigastric, abdominal pain. Low suspicion AAA, Ao dissection, mesenteric ischemia, pericarditis. Low risk PE based on Weils criteria. Will evaluate for hyperglycemia, hypovolemia, cardiac dysaarythmias, electrolyte abnml, metabolic and toxic derangements, acid-base disturbances, infection. Ed Course: CBC,CMP, Cardiac Pr. BHydroxy, LA, VBG, HCG, UA, UCx, BCx EKG Zofran, NS, Famotidine 12/25/17 09:28 EKG:Sinus Tachycardia-134, with absent SERGEY, STD. Normal interval duration and axis. Absent peaked T waves. 12/25/17 10:24 19.6 H/H: 15.4/46 Plt: 446 12/25/17 10:24 Na: 128 Glu: 252 Corrected sodium 132 K+ 3.8 12/25/17 10:25 Trop: Neg 12/25/17 10:51 pH: 7.54 12/25/17 11:23 Acetone 2+ Moderate Magnesium Oxide 12/25/17 13:42 Patient admitted to med/surg [facility]. Pt. endorsed to Resident physician Stacey. 12/25/17 17:47 RUQ U/S: Neg *DC/Admit/Observation/Transfer Diagnosis at time of Disposition: Dehydration, Gastroparesis, Epigastric abdominal pain, Insulin dependent diabetes mellitus - Discharge Dispostion Condition at time of disposition: Stable Decision to Admit order: Yes - Referrals - Patient Instructions - Post Discharge Activity
[2017-12-25 09:22] VITALS: BMI 30.2
[2017-12-25] MEDS ORDERED: ONDANSETRON 4 MG/2 ML VIAL ONE ×2 (09:39→13:28)
[2017-12-25 09:56] LABS: INR 0.99 (0.83-1.09); PROTHROMBIN TIME (PATIENT) 11.7 SEC (9.7-13.0)
[2017-12-25 09:59] LABS: BASO % 0.3 % (0-2.0); HEMOGLOBIN 15.4 GM/dL (10.7-15.3); LYMPH % 7.8 % (8-40); MCH 31.1 pg (25.7-33.7); MCHC 33.5 g/dl (32.0-36.0); MEAN CELL VOLUME 92.8 fl (80-96); MEAN PLT VOLUME 8.2 fl (7.5-11.1); MONO % 4.7 % (3.8-10.2); NEUT % 87.2 % (42.8-82.8); PLATELET COUNT 446 K/MM3 (134-434); RBC 4.96 M/mm3 (3.60-5.2); RDW 13.1 % (11.6-15.6); WHITE BLOOD COUNT 19.6 K/mm3 (4.0-10.0)
[2017-12-25 10:08] LABS: ALBUMIN 3.6 g/dl (3.4-5.0); ALK PHOS 130 U/L (45-117); ANION GAP 12 MMOL/L (8-16); BILIRUBIN,TOTAL 1.1 mg/dL (0.2-1); BLOOD UREA NITROGEN 12 mg/dL (7-18); CALCIUM 9.7 mg/dL (8.5-10.1); CHLORIDE 93 mmol/L (98-107); CO2 24 mmol/L (21-32); CREATININE 0.6 mg/dL (0.55-1.3); GLUCOSE,RANDOM 252 mg/dL (74-106); POTASSIUM 3.8 mmol/L (3.5-5.1); SGOT/AST 9 U/L (15-37); SGPT/ALT 16 U/L (13-61); SODIUM 128 mmol/L (136-145); TOT PROT 7.2 g/dl (6.4-8.2)
[2017-12-25] MEDS ORDERED: SUCRALFATE 1 GM TABLET (FP) PO ONE (10:22)
[2017-12-25] MEDS ORDERED: LIDOCAINE VISCOUS 2% ORAL/TOP 20 ML UNIT-DOSE CUP MM ONE (10:22)
[2017-12-25] MEDS ORDERED: MAG HYDROX/AL HYDROX/SIMETH 30 ML UNIT-DOSE CUP PO ONE (10:22)
[2017-12-25 10:25] LABS: VENOUS PC02 26.1 mmHg (38-52); VENOUS PH 7.54 (7.32-7.42)
[2017-12-25] MEDS ORDERED: SUCRALFATE 1 GM TABLET (FP) ONE (10:32)
[2017-12-25] MEDS ORDERED: LIDOCAINE VISCOUS 2% ORAL/TOP 20 ML UNIT-DOSE CUP ONE (10:32)
[2017-12-25] MEDS ORDERED: MAG HYDROX/AL HYDROX/SIMETH 30 ML UNIT-DOSE CUP ONE (10:33)
--- NOTE | 2017-12-25 10:36 | PDOC ---
Attending Attestation - Resident Resident Name: Yobany Merritt - ED Attending Attestation I have performed the following: I have examined & evaluated the patient, The case was reviewed & discussed with the resident, I agree w/resident's findings & plan, Exceptions are as noted - HPI HPI: 12/25/17 10:29 27 yo F with h/o HTN, gastroparesis, IDDM on Insulin, multiple episodes of DKA, presenting to ED with abdominal pain, nausea, vomiting. Pt states episode started about 5 days ago. Endorses epigastric pain radiating towards her back. Associated with NBNB emesis. Denies diarrhea. Denies F/C. Pt notes that her PCP adjusted her insulin pump 3 days ago due to high sugars. - Physicial Exam PE: 12/25/17 10:31 GENERAL: Awake, alert, and fully oriented, in no acute distress. HEAD: No signs of trauma EYES: PERRLA, EOMI, sclera anicteric, conjunctiva clear ENT: Auricles normal inspection, hearing grossly normal, nares patent, oropharynx clear without exudates. Moist mucosa NECK: Nontender, no stepoffs, Normal ROM, supple, no lymphadenopathy, JVD, or masses LUNGS: Breath sounds equal, clear to auscultation bilaterally. No wheezes, and no crackles HEART: Regular rate and rhythm, normal S1 and S2, no murmurs, rubs or gallops ABDOMEN: + Epigastric TTP, negative mendez's, normoactive bowel sounds. No guarding, no rebound. No masses EXTREMITIES: Normal range of motion, no edema. No clubbing or cyanosis. No cords, erythema, or tenderness NEUROLOGICAL: Cranial nerves II through XII intact. 5/5 strength and sensation in all extremities, Normal speech, normal gait, normal cerebellar function SKIN: Warm, Dry, normal turgor, no rashes or lesions noted. - Medical Decision Making 12/25/17 10:36 27 F with epigastric pain, N+V. Suspect gastroparesis vs DKA vs gastritis vs pancreatitis. - Labs, ketones, VBG, lipase - CXR to r/o perf - IVF, zofran, GI cocktail 12/25/17 11:19 Pt with 2+ acetone. However AG is only 12. Possible mild DKA. Will replete K (3.8) and give 5u of IV insulin Pt's insulin pump turned off to prevent overdosing her insulin 12/25/17 13:37 Pt with persistent inability to tolerate PO. Will admit for further IV hydration and antiemetics
[2017-12-25 11:18] LABS: MAGNESIUM 1.5 mg/dL (1.8-2.4)
[2017-12-25] MEDS ORDERED: POTASSIUM CHLORIDE 20 MEQ PREMIX IVPB 100 ML IVPB ONE (11:21)
[2017-12-25] MEDS ORDERED: INSULIN REGULAR HUMAN 100 UNITS/ML *VIAL IVPUSH ONE (11:22)
[2017-12-25] MEDS ORDERED: POTASSIUM CHLORIDE TABS 20 MEQ TABLET.ER (FP) PO ONE ×2 (11:49→12:15)
[2017-12-25] MEDS ORDERED: INSULIN REGULAR HUMAN 100 UNITS/ML *VIAL ONE (11:51)
[2017-12-25] MEDS ORDERED: KCL 10 MEQ IVPB 10 MEQ/100 ML INFUS.BAG IVPB SCH (12:00)
[2017-12-25 12:31] LABS: URINE APPEARANCE SLCLOUDY; URINE BILIRUBIN NEGATIVE (<2.0 mg/dL); URINE COLOR YELLOW; URINE GLUCOSE (UA) 3+ (NEGATIVE); URINE KETONE 2+ (NEGATIVE); URINE LEUK ESTERASE NEGATIVE (NEGATIVE); URINE NITRITE NEGATIVE (NEGATIVE); URINE PROTEIN 3+ (NEGATIVE); URINE UROBILINOGEN NEGATIVE mg/dL (0.2-1.0)
[2017-12-25 12:33] LABS: URINE APPEARANCE SLCLOUDY; URINE BILIRUBIN NEGATIVE (<2.0 mg/dL); URINE COLOR YELLOW; URINE GLUCOSE (UA) 3+ (NEGATIVE); URINE KETONE 2+ (NEGATIVE); URINE LEUK ESTERASE NEGATIVE (NEGATIVE); URINE NITRITE NEGATIVE (NEGATIVE); URINE PROTEIN 3+ (NEGATIVE); URINE UROBILINOGEN NEGATIVE mg/dL (0.2-1.0)
[2017-12-25 12:49] LABS: EPI CELLS MODERATE /HPF (FEW); URINE MUCUS RARE
[2017-12-25 12:50] LABS: EPI CELLS MODERATE /HPF (FEW); URINE BACTERIA RARE /hpf (NONE SEEN); URINE MUCUS RARE
[2017-12-25] MEDS ORDERED: ONDANSETRON 4 MG/2 ML VIAL IVPB ONE (13:14)
[2017-12-25] MEDS ORDERED: MAGNESIUM SULF 50% (8.12 MEQ/2 ML-1 GM VIAL) IVPB ONE (13:39)
[2017-12-25] MEDS ORDERED: MAGNESIUM 1GM/D5W - 1 GM/100 ML IVPB IVPB ONE (13:50)
[2017-12-25] MEDS ORDERED: SODIUM CHLORIDE 1,000 ML IV SCH (14:15)
--- NOTE | 2017-12-25 14:16 | HP ---
CHIEF COMPLAINT: " Abdominal pain, nausea, vomiting" PCP: Dr. Don Guitar Maker Hand: Dr. Martinez HISTORY OF PRESENT ILLNESS: Patient is a 27 year old female, well known to [facility], presented to the ED with the chief complaints of " Abdominal pain, nausea, vomiting". As per the patient , she hasn't been feeling herself since 10 days, has been having abdominal pain that started a week ago, located mainly in the epigastric area, radiating towards her mid chest, sharp in nature 8/10 in intensity, associated with Nausea and vomiting. Vomiting started 3 days ago, 2-3 episodes, had one episode of bloody vomit last night. States she has throat pain due to vomiting. Last Bowel movement was 5 days ago. Denies chest pain, sob, cough, palpitation, tingling, numbness or any focal neurological deficits. Bladder habit normal. Sleep disturbed. Decreased appetite since a week. Patient also reports that her sugar has been running high in 300's, has a glucose sensor that checks glucose every 5 mins and alerts if high or low. Uses insulin pump for Type 1 Diabetes, Insulin pump was check 3 days ago and basal insulin rate was increased to 2 but thinks it is not working. LMP: 2 months ago, on depot Inj. ER course was notable for: (1) On arrival, BP: 165/105 mmHg, HR 140's, leukocytosis of 19 (2) EKG: NSR, Qtc 464 (3) IV fluids Recent Travel: None PAST MEDICAL HISTORY: HTN, HLD, Type 1 diabetes, DKA, Gastroparesis PAST SURGICAL HISTORY: None reported Social History: Smoking: < 1/2 a pack/day since age 17 Alcohol: Denies Drugs: Marijuana (last marijuana 2 weeks ago) Family History: Both grandparents had HTN Allergies No Known Allergies Allergy (Verified 12/25/17 09:22) HOME MEDICATIONS: Home Medications Medication Instructions Recorded Amitriptyline HCl [Elavil -] 3 tab PO DAILY #0 06/27/15 Acetaminophen [Tylenol] 650 mg PO Q4H PRN #20 tablet 01/17/16 Metoclopramide HCl [Reglan] 10 mg PO Q6H PRN #15 tablet 01/17/16 Ranitidine HCl [Zantac] 150 mg PO BID PRN #20 tablet 11/11/16 Insulin Lispro [Humalog] 100 unit SQ ASDIR 12/25/17 REVIEW OF SYSTEMS CONSTITUTIONAL: Absent: fever, chills, diaphoresis, generalized weakness, malaise, loss of appetite, weight change HEENT: Absent: rhinorrhea, nasal congestion, throat pain, throat swelling, difficulty swallowing, mouth swelling, ear pain, eye pain, visual changes CARDIOVASCULAR: Absent: chest pain, syncope, palpitations, irregular heart rate, lightheadedness , peripheral edema RESPIRATORY: Absent: cough, shortness of breath, dyspnea with exertion, orthopnea, wheezing, stridor, hemoptysis GASTROINTESTINAL: Present: abdominal pain, abdominal distension, nausea, vomiting Absent: diarrhea, constipation, melena, hematochezia GENITOURINARY: Absent: dysuria, frequency, urgency, hesitancy, hematuria, flank pain, genital pain MUSCULOSKELETAL: Absent: myalgia, arthralgia, joint swelling, back pain, neck pain SKIN: Absent: rash, itching, pallor HEMATOLOGIC/IMMUNOLOGIC: Absent: easy bleeding, easy bruising, lymphadenopathy, frequent infections ENDOCRINE: Absent: unexplained weight gain, unexplained weight loss, heat intolerance, cold intolerance NEUROLOGIC: Absent: headache, focal weakness or paresthesias, dizziness, unsteady gait, seizure, mental status changes, bladder or bowel incontinence PSYCHIATRIC: Absent: anxiety, depression, suicidal or homicidal ideation, hallucinations. PHYSICAL EXAMINATION Vital Signs - 24 hr 12/25/17 12/25/17 12/25/17 09:00 09:30 10:00 Temperature 98.4 F Pulse Rate 128 H Pulse Rate [ 122 H 114 H Radial] Respiratory 16 20 18 Rate Blood Pressure 165/123 H Blood Pressure 163/105 H 155/104 H [Left Arm] O2 Sat by Pulse 100 96 100 Oximetry (%) 12/25/17 12/25/17 12/25/17 10:30 11:00 11:30 Temperature Pulse Rate Pulse Rate [ 110 H 115 H 105 H Radial] Respiratory 20 18 20 Rate Blood Pressure Blood Pressure 159/111 H 142/109 H 166/118 H [Left Arm] O2 Sat by Pulse 99 99 100 Oximetry (%) 12/25/17 12/25/17 12:30 13:20 Temperature Pulse Rate Pulse Rate [ 108 H 103 H Radial] Respiratory 20 18 Rate Blood Pressure Blood Pressure 136/94 144/103 H [Left Arm] O2 Sat by Pulse 100 98 Oximetry (%) GENERAL: Young female, lying in left lateral position, looks sick, Awake, alert , and fully oriented, in no acute distress. HEAD: Normal with no signs of trauma. EYES: EOM intact, no pallor or icterus. EARS, NOSE, THROAT: Ears normal. Moist mucous membranes. NECK: Supple. LUNGS: B/L Breath sounds equal, clear to auscultation bilaterally. No wheezes, and no crackles. No accessory muscle use. HEART: Tachycardic, Regular rate and rhythm, normal S1 and S2 without murmur. ABDOMEN: Glucose sensor and Insulin pump in place. Soft, tenderness in epigastric area. No organomegaly. MUSCULOSKELETAL: Normal range of motion at all joints. No bony deformities or tenderness. No CVA tenderness. UPPER EXTREMITIES: 2+ pulses, warm, well-perfused. No cyanosis. No clubbing. No peripheral edema. LOWER EXTREMITIES: 2+ pulses, warm, well-perfused. No calf tenderness. No peripheral edema. NEUROLOGICAL: No facial droop, power 5/5 in all ext. Cranial nerves II-XII intact. Normal speech. Gait not observed. PSYCHIATRIC: Cooperative. Good eye contact. Appropriate mood and affect. SKIN: Warm, dry, normal turgor, no rashes or lesions noted, normal capillary refill. Laboratory Results - last 24 hr 12/25/17 12/25/17 12/25/17 09:35 09:35 09:35 WBC 19.6 H RBC 4.96 Hgb 15.4 H Hct 46.0 H MCV 92.8 MCH 31.1 MCHC 33.5 RDW 13.1 Plt Count 446 H MPV 8.2 D Absolute Neuts (auto) 17.1 H Neutrophils % 87.2 H Lymphocytes % 7.8 L D Monocytes % 4.7 Eosinophils % 0.0 Basophils % 0.3 Nucleated RBC % 0 PT with INR 11.70 INR 0.99 VBG pH POC VBG pCO2 POC VBG pO2 Mixed VBG HCO3 Sodium 128 L Potassium 3.8 Chloride 93 L Carbon Dioxide 24 Anion Gap 12 BUN 12 Creatinine 0.6 Creat Clearance w eGFR > 60 POC Glucometer Random Glucose 252 H Lactic Acid Calcium 9.7 Phosphorus Magnesium Total Bilirubin 1.1 H AST 9 L ALT 16 Alkaline Phosphatase 130 H Creatine Kinase 65 Troponin I < 0.02 Total Protein 7.2 Albumin 3.6 Lipase Serum , Qual Urine Color Urine Appearance Urine pH Ur Specific [place] Urine Protein Urine Glucose (UA) Urine Ketones Urine Blood Urine Nitrite Urine Bilirubin Urine Urobilinogen Ur Leukocyte Esterase Urine WBC (Auto) Urine RBC (Auto) Ur Epithelial Cells Urine Bacteria Urine Mucus Acetone, Qual 12/25/17 12/25/17 12/25/17 09:37 10:20 10:30 WBC RBC Hgb Hct MCV MCH MCHC RDW Plt Count MPV Absolute Neuts (auto) Neutrophils % Lymphocytes % Monocytes % Eosinophils % Basophils % Nucleated RBC % PT with INR INR VBG pH 7.54 H POC VBG pCO2 26.1 L POC VBG pO2 131.0 H D Mixed VBG HCO3 22.4 Sodium Cancelled Potassium Cancelled Chloride Cancelled Carbon Dioxide Cancelled Anion Gap Cancelled BUN Cancelled Creatinine Cancelled Creat Clearance w eGFR Cancelled POC Glucometer Random Glucose Cancelled Lactic Acid 0.6 Calcium Cancelled Phosphorus 3.0 Magnesium 1.5 L Total Bilirubin Cancelled AST Cancelled ALT Cancelled Alkaline Phosphatase Cancelled Creatine Kinase Cancelled Troponin I Cancelled Total Protein Cancelled Albumin Cancelled Lipase 32 L Serum , Qual Urine Color Urine Appearance Urine pH Ur Specific [place] Urine Protein Urine Glucose (UA) Urine Ketones Urine Blood Urine Nitrite Urine Bilirubin Urine Urobilinogen Ur Leukocyte Esterase Urine WBC (Auto) Urine RBC (Auto) Ur Epithelial Cells Urine Bacteria Urine Mucus Acetone, Qual 12/25/17 12/25/17 12/25/17 10:30 10:50 12:00 WBC RBC Hgb Hct MCV MCH MCHC RDW Plt Count MPV Absolute Neuts (auto) Neutrophils % Lymphocytes % Monocytes % Eosinophils % Basophils % Nucleated RBC % PT with INR INR VBG pH POC VBG pCO2 POC VBG pO2 Mixed VBG HCO3 Sodium Potassium Chloride Carbon Dioxide Anion Gap BUN Creatinine Creat Clearance w eGFR POC Glucometer Random Glucose Lactic Acid Calcium Phosphorus Magnesium Total Bilirubin AST ALT Alkaline Phosphatase Creatine Kinase Troponin I Total Protein Albumin Lipase Serum , Qual Negative Urine Color Yellow Urine Appearance Slcloudy Urine pH 6.0 Ur Specific [place] 1.021 Urine Protein 3+ H Urine Glucose (UA) 3+ H Urine Ketones 2+ H Urine Blood 1+ H Urine Nitrite Negative Urine Bilirubin Negative Urine Urobilinogen Negative Ur Leukocyte Esterase Negative Urine WBC (Auto) 7 Urine RBC (Auto) 4 Ur Epithelial Cells Moderate Urine Bacteria Urine Mucus Rare Acetone, Qual Positive moderate 2+ H 10/20/18 10/20/18 12:18 13:08 WBC RBC Hgb Hct MCV MCH MCHC RDW Plt Count MPV Absolute Neuts (auto) Neutrophils % Lymphocytes % Monocytes % Eosinophils % Basophils % Nucleated RBC % PT with INR INR VBG pH POC VBG pCO2 POC VBG pO2 Mixed VBG HCO3 Sodium Potassium Chloride Carbon Dioxide Anion Gap BUN Creatinine Creat Clearance w eGFR POC Glucometer [phone] Random Glucose Lactic Acid Calcium Phosphorus Magnesium Total Bilirubin AST ALT Alkaline Phosphatase Creatine Kinase Troponin I Total Protein Albumin Lipase Serum , Qual Urine Color Yellow Urine Appearance Slcloudy Urine pH 6.0 Ur Specific [place] 1.021 Urine Protein 3+ H Urine Glucose (UA) 3+ H Urine Ketones 2+ H Urine Blood 1+ H Urine Nitrite Negative Urine Bilirubin Negative Urine Urobilinogen Negative Ur Leukocyte Esterase Negative Urine WBC (Auto) 5 Urine RBC (Auto) 2 Ur Epithelial Cells Moderate Urine Bacteria Rare Urine Mucus Rare Acetone, Qual ASSESSMENT/PLAN: Patient is a 27 year old female, well known to [facility], with PMHx of HTN, HLD, Type 1 DM, Gastroparesis, DKA, presented to the ED with the chief complaints of " Abdominal pain, nausea, vomiting". # Abdominal pain, nausea, vomiting- could be from Marijuana use H/O marijuana abuse. USG abdomen pending, will consider CT abdomen/Pelvis if pain increases. IV NS @ 83 mls/hr IV Reglan 10mg Q6H Truman IV Protonix 40mg IV daily Dry bland diet, continue to diabetic diet if tolerated A1c in AM # Leukocytosis Likely reactive. Less likely due to infection. Blood cultures/urine cultures sent Will monitor off antibiotics for now # Type 1 DM Hold using insulin pump (recheck the pump) ISS, Finger stick glucose monitoring Watch for hypoglycemic episodes Spoke with Dr. Martinez. As per his recommendations, will stop the insulin pump, start her on Insulin sliding scale, when she tolerates PO diet, give her Levemir 20 U in AM and 10 U HS. # Hypertension diet controlled # Hyperlipidemia On lipitor 40mg (hasn't picked up since April), will restart her meds. Will do a lipid profile in the morning. # Gastroparesis Will keep IV Reglan 10mg Q6H Truman Colace, Senna for constipation # FEN IV NS @ 83 mls/hr Electrolytes: Hypomagnesemia-repleted with IV Magnesium 1gm, repeat Mg, Phos in AM Dry [place] diet, can give diabetic diet as tolerated # Prophylaxis For DVT: Early ambulation, SCD's For GI: IV Protonix 40 mg Daily # Code Status: Full Code Illness, Investigation and Plan of care explained to the patient. She verbalized understanding. Case discussed with Dr. Donovan. Visit type - Emergency Visit Emergency Visit: Yes Care time: The patient presented to the Emergency Department on the above date and was hospitalized for further evaluation of their emergent condition. - New Patient This patient is new to me today: Yes Date on this admission: 12/25/17 - Critical Care Critical Care patient: No
[2017-12-25] MEDS ORDERED: PANTOPRAZOLE SODIUM 40 MG VIAL IVPUSH SCH (14:35)
[2017-12-25] MEDS ORDERED: METOCLOPRAMIDE HCL INJECTION 10 MG/2 ML VIAL IVPUSH ONE (14:45)
[2017-12-25] MEDS ORDERED: PANTOPRAZOLE SODIUM 40 MG/100 ML BAG IVPB ONE (15:42)
[2017-12-25] MEDS ORDERED: METOCLOPRAMIDE HCL INJECTION 10 MG/2 ML VIAL ONE (15:42)
[2017-12-25] MEDS ORDERED: INSULIN SLIDING SCALE (NOVOLOG) 1 VIAL SQ SCH ×2 (16:30→18:00)
[2017-12-25 17:20] VITALS: BP 123/78; PULSE 134; TEMP 98.2
--- NOTE | 2017-12-25 17:21 | PN ---
Progress Note (short form) - Note Progress Note: Called to see a patient who said she feels better and wants to go home. She says she has gone through this before. She said she will go home and continue management by herself using the oxygen pump. She is aware of the risks of leaving including , DKA, hypoglycemia, convulsions and still insists on leaving. AMA form was provided and patient signed to leave against medical advice.
--- NOTE | 2017-12-25 18:02 | EKG ---
Test Reason : Blood Pressure : / mmHG Vent. Rate : 134 BPM Atrial Rate : 134 BPM P-R Int : 118 ms QRS Dur : 058 ms QT Int : 314 ms P-R-T Axes : 042 006 007 degrees QTc Int : 468 ms SINUS TACHYCARDIA POSSIBLE LEFT ATRIAL ENLARGEMENT CANNOT RULE OUT ANTERIOR INFARCT , AGE UNDETERMINED ABNORMAL ECG WHEN COMPARED WITH ECG OF 21-NOV-2017 15:51, NO SIGNIFICANT CHANGE WAS FOUND Confirmed by ISMAEL BROCK, JEFF ([id number]) on 12/25/2017 6:02:11 PM Referred By: Confirmed By:JEFF GUEVARA MD
--- NOTE | 2017-12-25 18:10 | PN ---
Teaching Attending Note Name of Resident: Stacey Armendariz ATTENDING PHYSICIAN STATEMENT I saw and evaluated the patient. I reviewed the resident's note and discussed the case with the resident. I agree with the resident's findings and plan as documented. SUBJECTIVE: This is a 27 year old woman with a history of type 1 DM, gastroparesis, HTN, hyperlipidemia, marijuana use who comes to the ED complaining of epigastric abdominal pain, nausea, vomiting. She denies fever, chills, diarrhea, constipation, melena, rectal bleeding. She had one episode of bloody emesis. OBJECTIVE: Vital Signs Period Temp Pulse Resp BP Sys/Plata Pulse Ox Last 24 Hr 98.2 F-98.4 F 103-134 16-20 123-166/78-123 96-100 HEART: S1S2, tachycardic LUNGS: Clear ABDOMEN: Soft, (+) epigastric tenderness, non-distended, normal BS EXTREMITIES: No edema Laboratory Tests 12/25/17 12/25/17 12/25/17 09:35 09:35 09:35 WBC 19.6 H RBC 4.96 Hgb 15.4 H Hct 46.0 H MCV 92.8 MCH 31.1 MCHC 33.5 RDW 13.1 Plt Count 446 H MPV 8.2 D Absolute Neuts (auto) 17.1 H Neutrophils % 87.2 H Lymphocytes % 7.8 L D Monocytes % 4.7 Eosinophils % 0.0 Basophils % 0.3 Nucleated RBC % 0 PT with INR 11.70 INR 0.99 VBG pH POC VBG pCO2 POC VBG pO2 Mixed VBG HCO3 Sodium 128 L Potassium 3.8 Chloride 93 L Carbon Dioxide 24 Anion Gap 12 BUN 12 Creatinine 0.6 Creat Clearance w eGFR > 60 POC Glucometer Random Glucose 252 H Lactic Acid Calcium 9.7 Phosphorus Magnesium Total Bilirubin 1.1 H AST 9 L ALT 16 Alkaline Phosphatase 130 H Creatine Kinase 65 Troponin I < 0.02 Total Protein 7.2 Albumin 3.6 Lipase Serum , Qual Urine Color Urine Appearance Urine pH Ur Specific Stuart Urine Protein Urine Glucose (UA) Urine Ketones Urine Blood Urine Nitrite Urine Bilirubin Urine Urobilinogen Ur Leukocyte Esterase Urine WBC (Auto) Urine RBC (Auto) Ur Epithelial Cells Urine Bacteria Urine Mucus Acetone, Qual 12/25/17 12/25/17 12/25/17 09:37 10:20 10:30 WBC RBC Hgb Hct MCV MCH MCHC RDW Plt Count MPV Absolute Neuts (auto) Neutrophils % Lymphocytes % Monocytes % Eosinophils % Basophils % Nucleated RBC % PT with INR INR VBG pH 7.54 H POC VBG pCO2 26.1 L POC VBG pO2 131.0 H D Mixed VBG HCO3 22.4 Sodium Cancelled Potassium Cancelled Chloride Cancelled Carbon Dioxide Cancelled Anion Gap Cancelled BUN Cancelled Creatinine Cancelled Creat Clearance w eGFR Cancelled POC Glucometer Random Glucose Cancelled Lactic Acid 0.6 Calcium Cancelled Phosphorus 3.0 Magnesium 1.5 L Total Bilirubin Cancelled AST Cancelled ALT Cancelled Alkaline Phosphatase Cancelled Creatine Kinase Cancelled Troponin I Cancelled Total Protein Cancelled Albumin Cancelled Lipase 32 L Serum , Qual Urine Color Urine Appearance Urine pH Ur Specific Stuart Urine Protein Urine Glucose (UA) Urine Ketones Urine Blood Urine Nitrite Urine Bilirubin Urine Urobilinogen Ur Leukocyte Esterase Urine WBC (Auto) Urine RBC (Auto) Ur Epithelial Cells Urine Bacteria Urine Mucus Acetone, Qual 12/25/17 12/25/17 12/25/17 10:30 10:50 12:00 WBC RBC Hgb Hct MCV MCH MCHC RDW Plt Count MPV Absolute Neuts (auto) Neutrophils % Lymphocytes % Monocytes % Eosinophils % Basophils % Nucleated RBC % PT with INR INR VBG pH POC VBG pCO2 POC VBG pO2 Mixed VBG HCO3 Sodium Potassium Chloride Carbon Dioxide Anion Gap BUN Creatinine Creat Clearance w eGFR POC Glucometer Random Glucose Lactic Acid Calcium Phosphorus Magnesium Total Bilirubin AST ALT Alkaline Phosphatase Creatine Kinase Troponin I Total Protein Albumin Lipase Serum , Qual Negative Urine Color Yellow Urine Appearance Slcloudy Urine pH 6.0 Ur Specific Stuart 1.021 Urine Protein 3+ H Urine Glucose (UA) 3+ H Urine Ketones 2+ H Urine Blood 1+ H Urine Nitrite Negative Urine Bilirubin Negative Urine Urobilinogen Negative Ur Leukocyte Esterase Negative Urine WBC (Auto) 7 Urine RBC (Auto) 4 Ur Epithelial Cells Moderate Urine Bacteria Urine Mucus Rare Acetone, Qual Positive moderate 2+ H 12/25/17 12/25/17 12:18 13:08 WBC RBC Hgb Hct MCV MCH MCHC RDW Plt Count MPV Absolute Neuts (auto) Neutrophils % Lymphocytes % Monocytes % Eosinophils % Basophils % Nucleated RBC % PT with INR INR VBG pH POC VBG pCO2 POC VBG pO2 Mixed VBG HCO3 Sodium Potassium Chloride Carbon Dioxide Anion Gap BUN Creatinine Creat Clearance w eGFR POC Glucometer [phone] Random Glucose Lactic Acid Calcium Phosphorus Magnesium Total Bilirubin AST ALT Alkaline Phosphatase Creatine Kinase Troponin I Total Protein Albumin Lipase Serum , Qual Urine Color Yellow Urine Appearance Slcloudy Urine pH 6.0 Ur Specific Stuart 1.021 Urine Protein 3+ H Urine Glucose (UA) 3+ H Urine Ketones 2+ H Urine Blood 1+ H Urine Nitrite Negative Urine Bilirubin Negative Urine Urobilinogen Negative Ur Leukocyte Esterase Negative Urine WBC (Auto) 5 Urine RBC (Auto) 2 Ur Epithelial Cells Moderate Urine Bacteria Rare Urine Mucus Rare Acetone, Qual Home Medications Medication Instructions Recorded Amitriptyline HCl [Elavil -] 3 tab PO DAILY #0 06/27/15 Acetaminophen [Tylenol] 650 mg PO Q4H PRN #20 tablet 01/17/16 Metoclopramide HCl [Reglan] 10 mg PO Q6H PRN #15 tablet 01/17/16 Ranitidine HCl [Zantac] 150 mg PO BID PRN #20 tablet 01/17/16 Atorvastatin Ca [Lipitor] 40 mg PO HS 12/25/17 Insulin Lispro [Humalog] 100 unit SQ ASDIR 12/25/17 ASSESSMENT AND PLAN: This is a 27 year old woman with a history of type 1 DM, gastroparesis, HTN, hyperlipidemia, marijuana use who presented to the ED with epigastric abdominal pain, nausea, vomiting. 1. Abdominal pain with nausea, vomiting likely secondary to diabetic gastroparesis - NPO and advance as tolerated - IV fluid - Reglan IV, Protonix IV - RUQ US shows normal gallbladder and ducts 2. Leukocytosis - Likely reactive - CXR, RUQ US negative - No evidence of UTI - Urine, blood cultures sent 3. Hyponatremia - IV NS - Monitor electrolytes 4. Type 1 DM, uncontrolled - Hold insulin pump - Fingersticks with Novolog sliding scale - Start Levemir once taking PO 4. HTN 5. Hyperlipidemia - Continue Lipitor
[2017-12-25] MEDS ORDERED: ATORVASTATIN CA 40 MG TABLET (FP) PO SCH (22:00)
[2017-12-26] MEDS ORDERED: AMITRIPTYLINE HCL 75 MG TABLET PO SCH (22:00)
== END 2017-12-25 17:45 | disposition left against medical advice (07) ==
LOC: JER 08:49 → JERBED 13:41
PROVIDERS: ADMIT Internal Medicine; ATTEND Internal Medicine
PROC: 3E033VG Introduction of Insulin into Peripheral Vein, Percutaneous Approach (ICD-10-PCS; principal; 2017-12-25)
PROC: 3E033GC Introduction of Other Therapeutic Substance into Peripheral Vein, Percutaneous Approach (ICD-10-PCS; 2017-12-25)
PROC: 3E0337Z Introduction of Electrolytic and Water Balance Substance into Peripheral Vein, Percutaneous Approach (ICD-10-PCS; 2017-12-25)
DX: E86.0 Dehydration (principal); E10.43 Type 1 diabetes mellitus with diabetic autonomic (poly)neuropathy; K31.84 Gastroparesis; Z96.41 Presence of insulin pump (external) (internal); R10.13 Epigastric pain; I10 Essential (primary) hypertension; R11.2 Nausea with vomiting, unspecified; D72.829 Elevated white blood cell count, unspecified; E78.5 Hyperlipidemia, unspecified
CPT/HCPCS: 36415; 71045-TC-FY; 76705-TC; 80053; 81003; 81015; 82009; 82010; 82550; 82803; 82962; 83605; 83690; 83735; 84100; 84484; 84703; 85025; 85610; 87040; 87086; 93005; 93010; 96361; 96365; 96375; 96376; 99285-25; G0378; J7030

== ENCOUNTER 2019-02-19 12:20 | Inpatient (IN) | payer OTHER ==
[2019-02-19 12:46] LABS: VENOUS PC02 18.5 mmHg (38-52)
[2019-02-19 12:53] LABS: VENOUS PO2 89.4 mmHg (28-48)
[2019-02-19 12:53] LABS: BASO % 0.6 % (0-2.0); HEMATOCRIT 41.6 % (32.4-45.2); HEMOGLOBIN 12.6 GM/dL (10.7-15.3); LYMPH % 2.8 % (8-40); MCH 32.6 pg (25.7-33.7); MCHC 30.2 g/dl (32.0-36.0); MEAN PLT VOLUME 8.9 fl (7.5-11.1); NEUT % 94.6 % (42.8-82.8); PLATELET COUNT 453 K/MM3 (134-434); RBC 3.85 M/mm3 (3.60-5.2); RDW 14.1 % (11.6-15.6); WHITE BLOOD COUNT 27.2 K/mm3 (4.0-10.0)
[2019-02-19 12:55] LABS: VENOUS PH 7.06 (7.31-7.41)
[2019-02-19] MEDS ORDERED: SODIUM CHLORIDE 1,000 ML IV STA ×2 (12:56→12:57)
[2019-02-19 13:17] LABS: ALBUMIN 3.6 g/dl (3.4-5.0); BLOOD UREA NITROGEN 36.4 mg/dL (7-18); CALCIUM 9.4 mg/dL (8.5-10.1); CREATININE 1.5 mg/dL (0.55-1.3); MAGNESIUM 2.2 mg/dL (1.8-2.4); PHOSPHOROUS 8.2 mg/dL (2.5-4.9); TOT PROT 7.1 g/dl (6.4-8.2)
--- NOTE | 2019-02-19 13:18 | PDOC ---
History of Present Illness - General Chief Complaint: Blood Sugar Problem Stated Complaint: DIABETIC EMERGENCY Time Seen by Provider: 02/19/19 12:34 History Source: Patient Exam Limitations: No Limitations - History of Present Illness Initial Comments: 02/19/19 13:17 28yF w PMHx IDDM, gastroparesis, frequent DKA and UTIs presenting w vomiting, hyperglycemia. Pt took her last insulin dose this morning since she ran out, felt progressive lethargy, weakness, nausea, vomiting x1, SOB. EMS gave zofran en route. Denies fever, cough, headache, chest/AB pain, urinary/bowel mvmt changes. Past History - Past Medical History Allergies/Adverse Reactions: Allergies Allergy/AdvReac Type Severity Reaction Status Date / Time No Known Allergies Allergy Verified 12/25/17 09:22 Home Medications: Ambulatory Orders Amitriptyline HCl [Elavil -] 3 tab PO DAILY #0 06/27/15 Acetaminophen [Tylenol] 650 mg PO Q4H PRN #20 tablet 01/17/16 Metoclopramide HCl [Reglan] 10 mg PO Q6H PRN #15 tablet 01/17/16 Ranitidine HCl [Zantac] 150 mg PO BID PRN #20 tablet 01/17/16 Atorvastatin Ca [Lipitor] 40 mg PO HS 12/25/17 Insulin Lispro [Humalog] 100 unit SQ ASDIR 12/25/17 Anemia: No Asthma: No Cancer: No Cardiac Disorders: No CVA: No COPD: No CHF: No Dementia: No Diabetes: Yes GI Disorders: Yes (gastroparesis) Disorders: No HTN: No Hypercholesterolemia: No Liver Disease: No Psychiatric Problems: Yes (ANXIETY DEPRESSION) Seizures: No Thyroid Disease: No - Surgical History Abdominal Surgery: No Appendectomy: No Cardiac Surgery: No Cholecystectomy: No Lung Surgery: No Neurologic Surgery: No Orthopedic Surgery: No - Immunization History Immunization Up to Date: Yes - Psycho Social/Smoking Cessation Hx Smoking Status: No Smoking History: Never smoked Have you smoked in the past 12 months: Yes Number of Cigarettes Smoked Daily: 10 Information on smoking cessation initiated: No 'Breaking Loose' booklet given: 01/14/17 Hx Alcohol Use: No Drug/Substance Use Hx: No Substance Use Type: None Hx Substance Use Treatment: No Review of Systems - Review of Systems Constitutional: Yes: Malaise, Weakness. No: Chills, Fever HEENTM: No: Recent change in vision, Nose Pain, Throat Pain, Mouth Pain Respiratory: Yes: Shortness of Breath. No: Cough Cardiac (ROS): Yes: Chest Tightness. No: Palpitations, Syncope ABD/GI: Yes: Nausea, Vomiting. No: Abdominal Distended, Constipated, Diarrhea : No: Burning, Dysuria, Flank Pain Musculoskeletal: No: Back Pain Integumentary: No: Bruising, Flushing, Lesions Neurological: No: Headache, Seizure, Tingling, Tremors Psychiatric: Yes: Anxiety. No: Depression Endocrine: No: Excessive Sweating, Flushing, Intolerance to Cold, Intolerance to Heat Hematologic/Lymphatic: No: Anemia, Blood Clots *Physical Exam - Vital Signs Last Vital Signs Temp Pulse Resp BP Pulse Ox 98.5 F 141 H 17 121/62 100 02/19/19 12:35 02/19/19 12:35 02/19/19 12:35 02/19/19 12:35 02/19/19 12:35 - Physical Exam General Appearance: Yes: Nourished, Appropriately Dressed, Mild Distress, Obese HEENT: positive: EOMI, KEYSHA, Normal Voice, Hearing Grossly Normal. negative: Scleral Icterus (R), Scleral Icterus (L), Nasal Congestion, Rhinorrhea Respiratory/Chest: positive: Lungs Clear, Normal Breath Sounds. negative: Chest Tender, Respiratory Distress, Crackles, Rales, Rhonchi, Stridor, Wheezing Cardiovascular: positive: Regular Rhythm, Regular Rate, S1, S2. negative: Edema , Murmur Gastrointestinal/Abdominal: positive: Normal Bowel Sounds, Flat, Soft. negative : Tender, Organomegaly Musculoskeletal: negative: CVA Tenderness (R), CVA Tenderness (L) Extremity: positive: Delayed Capillary Refill Integumentary: positive: Dry. negative: Swelling Neurologic: positive: Fully Oriented, Alert (mildly lethargic), Responsive. negative: Normal Mood/Affect (anxious), Sensory Deficit, Confused, Disoriented ED Treatment Course - LABORATORY CBC & Chemistry Diagram: 02/19/19 12:37 02/19/19 18:10 - ADDITIONAL ORDERS Additional order review: Laboratory Results 02/19/19 02/19/19 02/19/19 12:37 12:33 12:30 VBG pH 7.06 L* POC VBG pCO2 18.5 L POC VBG pO2 89.4 H VBG HCO3 5.0 L VBG O2 Sat (Feliberto) 91.2 H VBG Base Excess -24.8 L Sodium 120 L Chloride 82 L Carbon Dioxide 5 L Anion Gap 33 H BUN 36.4 H Creatinine 1.5 H Est GFR (CKD-EPI)AfAm 54.38 Est GFR (CKD-EPI)NonAf 46.92 POC Glucometer > 600 Calcium 9.4 Phosphorus 8.2 H Magnesium 2.2 Total Bilirubin 1.0 AST 8 L ALT 18 Alkaline Phosphatase 179 H Total Protein 7.1 Albumin 3.6 Lipase 41 L 02/19/19 02/19/19 12:37 12:33 RBC 3.85 MCV 108.0 H MCHC 30.2 L RDW 14.1 MPV 8.9 Neutrophils % 94.6 H Lymphocytes % 2.8 L D Monocytes % 2.0 L Eosinophils % 0.0 Basophils % 0.6 POC Glucometer > 600 Medical Decision Making - Medical Decision Making 02/19/19 13:23 CXR clear lungs EKG shows sinus tachycardia, peaked T waves, premature beats, HR 136, QTc 451 cardiac monitoring lactate 5, pH 7.06, WBC 27 w left shift, Na 120, K 7, Cr 1.5, BG 990 --- 28yF w PMHx T1IDDM, gastroparesis, frequent DKA and UTIs presenting w vomiting, hyperglycemia d/t DKA (pH 7.06, BG 990, b-hydroxybutyrate 103, bicarb 5). Given zofran by EMS, 3L NS, Ca gluconate for EKG changes, given 10u insulin, started 0.1mg/kg insulin drip. On cardiac monitoring, BGM q1h. Not . Low concern for PNA (clear lungs) vs ACS (no risk factors) vs PE (1.5 Wells criteria for PE for tachycardia, no risk factors) vs asthma (no hx or wheezing) vs UTI (clean UA) Pt started complaining of judith chest tightness and dyspnea in the ED, O2 sat wnl on RA likely d/t anxiety (hx anxiety during DKA). Consulted ICU, accepted Admitted to ICU Dr Lepe for DKA. Discharge - Discharge Information Problems reviewed: Yes Clinical Impression/Diagnosis: DKA (diabetic ketoacidoses) Qualifiers: Diabetes mellitus type: type 1 Diabetes mellitus complication detail: without coma Qualified Code(s): E10.10 - Type 1 diabetes mellitus with ketoacidosis without coma Condition: Improved - Follow up/Referral - Patient Discharge Instructions - Post Discharge Activity
[2019-02-19 13:19] LABS: POTASSIUM 7.3 mmol/L (3.5-5.1)
[2019-02-19] MEDS ORDERED: CALCIUM GLUCONATE 10% - 1,000 MG/10 ML VIAL IVPUSH ONE (13:19)
[2019-02-19] MEDS ORDERED: INSULIN REGULAR HUMAN 100 UNITS/ML *VIAL IVPUSH ONE (13:19)
[2019-02-19 13:21] LABS: ANISOCYTOSIS 1+; MACROCYTOSIS 1+
--- NOTE | 2019-02-19 13:21 | PDOC ---
Documentation entered by Xavier Fitzgerald SCRIBE, acting as scribe for Jaun Tran MD. Jaun Tran MD: This documentation has been prepared by the Lia reeder Nirvannie, SCRIBE, under my direction and personally reviewed by me in its entirety. I confirm that the documentation accurately reflects all work, treatment, procedures, and medical decision making performed by me. Attending Attestation - Resident Resident Name: Kahlil Salmeron - ED Attending Attestation I have performed the following: I have examined & evaluated the patient, The case was reviewed & discussed with the resident, I agree w/resident's findings & plan, Exceptions are as noted - HPI HPI: 02/19/19 13:22 28 F with h/o DM1, gastroparesis, multiple episodes of DKA, presenting to ED with SOB and lethargy. Pt states she ran out of her insulin this morning and now feels like she is in DKA. Endorses N+V. Denies abdominal pain. Denies F/C. Fingerstick in the field was >550. - Physicial Exam PE: 02/19/19 13:22 "GENERAL: Awake, alert, and fully oriented, in no acute distress. HEAD: No signs of trauma EYES: PERRLA, EOMI, sclera anicteric, conjunctiva clear ENT: Auricles normal inspection, hearing grossly normal, nares patent, oropharynx clear without exudates. Moist mucosa NECK: Nontender, no stepoffs, Normal ROM, supple, no lymphadenopathy, JVD, or masses LUNGS: Breath sounds equal, clear to auscultation bilaterally. No wheezes, and no crackles HEART: Regular rate and rhythm, normal S1 and S2, no murmurs, rubs or gallops ABDOMEN: Soft, nontender, normoactive bowel sounds. No guarding, no rebound. No masses EXTREMITIES: Normal range of motion, no edema. No clubbing or cyanosis. No cords, erythema, or tenderness NEUROLOGICAL: Cranial nerves II through XII intact. 5/5 strength and sensation in all extremities, Normal speech, normal gait, normal cerebellar function SKIN: Warm, Dry, normal turgor, no rashes or lesions noted. - Critical Care Time Total Critical Care Time: 120 Critical Care Statement: The care of this patient involved high complexity decision making to prevent further life threatening deterioration of the patient 's condition and/or to evaluate & treat vital organ system(s) failure or risk of failure. - Medical Decision Making 02/19/19 13:22 28 F with SOB, elevated fingerstick, lethargy. Likely DKA. - Labs, ketones, VBG - IVF, insulin gtt - Admit ICU 02/19/19 13:23 VBG pH 7.06 EKG shows peaked T waves Potassium 7.3 Insulin started, will give calcium gluconate, bicarb
[2019-02-19] MEDS ORDERED: SODIUM BICARBONATE 4.2% 5 MEQ/10 ML DISP.SYRIN IVPUSH ONE ×2 (13:24→13:33)
[2019-02-19] MEDS ORDERED: INSULIN REGULAR 100 UNITS in SODIUM CHLORIDE 99 ML IVPB SCH ×3 (13:30→23:14)
[2019-02-19] MEDS ORDERED: CALCIUM GLUCONATE 10% - 1,000 MG/10 ML VIAL ONE (13:33)
[2019-02-19] MEDS ORDERED: ACETAMINOPHEN 1000 MG/100 ML VIAL (NON FORMULARY) IVPB ONE (13:56)
[2019-02-19] MEDS ORDERED: ACETAMINOPHEN INJECTION 100 ML IVPB ONE (14:01)
[2019-02-19 14:12] LABS: URINE APPEARANCE CLEAR; URINE BILIRUBIN NEGATIVE (NEGATIVE); URINE COLOR YELLOW; URINE GLUCOSE (UA) 3+ (NEGATIVE); URINE KETONE 3+ (NEGATIVE); URINE LEUK ESTERASE NEGATIVE (NEGATIVE); URINE NITRITE NEGATIVE (NEGATIVE); URINE PROTEIN NEGATIVE (NEGATIVE); URINE UROBILINOGEN 0.2 mg/dL (0.2-1.0)
[2019-02-19] MEDS ORDERED: SODIUM CHLORIDE 0.9% 500 ML INFUS.BAG IV ONE (14:14)
--- NOTE | 2019-02-19 15:53 | HP ---
CHIEF COMPLAINT: nausea/vomiting/weakness PCP: Dr. Don Grape Cutter: Dr. Martinez HISTORY OF PRESENT ILLNESS: Patient is a 28 year old female with a significant past medical history of multiple admissions for DKA (type 1 diabetes), recurrent UTIs, gastroparesis who presents tot ED today with shortness of breath, nausea/vomiting and lethargy. 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 She reports that she ran out of her home insulin yesterday, she did not take any insulin today and was going to wait until Wednesday to see her PCP. She feels like she is now in DKA and endorses nausea/vomiting. Fingersticks in the field elevated at 550, in the ED, her glucose as 990, potassium 7.3, lactic acid 5.5, anion gap 33. ER course was notable for: (1) hyponatremia 120, K 7.3 given novolog 10, gluconate 10%, repeat potassium levels pending (2) WBC 27.2, tachycardia, OLEG (3) EKG shows peaked T waves (4) Insulin started, bicarb 5, AG 33, BUN/SCr 36/1.5, lactate 5.5 (5) ceftraxone for elevated wbc, pending urine cultures/blood cultures/ ID consulted. Recent Travel: none PAST MEDICAL/SURGICAL HISTORY: multiple admissions for DKA (type 1 diabetes), recurrent UTIs, gastroparesis Social History: Smokin cigarettes daily Alcohol: none reported Drugs: none reported Allergies No Known Allergies Allergy (Verified 12/25/17 09:22) HOME MEDICATIONS: Home Medications Medication Instructions Recorded Amitriptyline HCl [Elavil -] 3 tab PO DAILY #0 06/27/15 Acetaminophen [Tylenol] 650 mg PO Q4H PRN #20 tablet 01/17/16 Metoclopramide HCl [Reglan] 10 mg PO Q6H PRN #15 tablet 01/17/16 Ranitidine HCl [Zantac] 150 mg PO BID PRN #20 tablet 01/17/16 Atorvastatin Ca [Lipitor] 40 mg PO HS 12/25/17 Insulin Lispro [Humalog] 100 unit SQ ASDIR 12/25/17 PHYSICAL EXAMINATION Vital Signs - 24 hr 02/19/19 02/19/19 12:35 14:34 Temperature 98.5 F Pulse Rate 141 H Respiratory 17 Rate Blood Pressure 121/62 O2 Sat by Pulse 100 100 Oximetry (%) GENERAL: Awake, alert, and fully oriented, in mild respiratory distress. HEAD: Normal with no signs of trauma. EYES: Pupils equal, round and reactive to light, extraocular movements intact, sclera anicteric, conjunctiva clear. No lid lag. EARS, NOSE, THROAT: Ears normal, nares patent, oropharynx clear without exudates. Moist mucous membranes. NECK: Normal range of motion, supple without lymphadenopathy, JVD, or masses. LUNGS: Breath sounds equal, clear to auscultation bilaterally. tachypnea HEART: tachycardia ABDOMEN: soft, tender on exam, reports nausea/vomiting MUSCULOSKELETAL: Normal range of motion at all joints. No bony deformities or tenderness. No CVA tenderness. UPPER EXTREMITIES: No peripheral edema. LOWER EXTREMITIES: No peripheral edema. NEUROLOGICAL: C Normal speech. Normal gait. PSYCHIATRIC: C Appropriate mood and affect. SKIN: Warm, dry, normal turgor, no rashes or lesions noted, normal capillary refill. Laboratory Results - last 24 hr 02/19/19 02/19/19 02/19/19 12:30 12:33 12:37 WBC RBC Hgb Hct MCV MCH MCHC RDW Plt Count MPV Absolute Neuts (auto) Neutrophils % Neutrophils % (Manual) Band Neutrophils % Lymphocytes % Lymphocytes % (Manual) Monocytes % Monocytes % (Manual) Eosinophils % Eosinophils % (Manual) Basophils % Basophils % (Manual) Myelocytes % (Man) Nucleated RBC % Metamyelocytes Anisocytosis Macrocytosis VBG pH 7.06 L* POC VBG pCO2 18.5 L POC VBG pO2 89.4 H VBG HCO3 5.0 L VBG O2 Sat (Feliberto) 91.2 H VBG Base Excess -24.8 L Sodium 120 L Potassium 7.3 H* Chloride 82 L Carbon Dioxide 5 L Anion Gap 33 H BUN 36.4 H Creatinine 1.5 H Est GFR (CKD-EPI)AfAm 54.38 Est GFR (CKD-EPI)NonAf 46.92 POC Glucometer > 600 Random Glucose 990 H* Lactic Acid Calcium 9.4 Phosphorus 8.2 H Magnesium 2.2 Total Bilirubin 1.0 AST 8 L ALT 18 Alkaline Phosphatase 179 H Total Protein 7.1 Albumin 3.6 Lipase 41 L Beta-Hydroxybutyrate Urine Color Urine Appearance Urine pH Ur Specific [place] Urine Protein Urine Glucose (UA) Urine Ketones Urine Blood Urine Nitrite Urine Bilirubin Urine Urobilinogen Ur Leukocyte Esterase Urine HCG, Qual 02/19/19 02/19/19 02/19/19 12:37 12:37 12:37 WBC 27.2 H RBC 3.85 Hgb 12.6 Hct 41.6 MCV 108.0 H MCH 32.6 MCHC 30.2 L RDW 14.1 Plt Count 453 H MPV 8.9 Absolute Neuts (auto) 25.7 H Neutrophils % 94.6 H Neutrophils % (Manual) 89.0 H Band Neutrophils % 5.0 Lymphocytes % 2.8 L D Lymphocytes % (Manual) 3.0 L D Monocytes % 2.0 L Monocytes % (Manual) 1 L Eosinophils % 0.0 Eosinophils % (Manual) 0.0 D Basophils % 0.6 Basophils % (Manual) 0.0 Myelocytes % (Man) 2 Nucleated RBC % 0 Metamyelocytes 0 Anisocytosis 1+ Macrocytosis 1+ VBG pH POC VBG pCO2 POC VBG pO2 VBG HCO3 VBG O2 Sat (Feliberto) VBG Base Excess Sodium Potassium Chloride Carbon Dioxide Anion Gap BUN Creatinine Est GFR (CKD-EPI)AfAm Est GFR (CKD-EPI)NonAf POC Glucometer Random Glucose Lactic Acid 5.5 H* Calcium Phosphorus Magnesium Total Bilirubin AST ALT Alkaline Phosphatase Total Protein Albumin Lipase Beta-Hydroxybutyrate 103.4 H Urine Color Urine Appearance Urine pH Ur Specific [place] Urine Protein Urine Glucose (UA) Urine Ketones Urine Blood Urine Nitrite Urine Bilirubin Urine Urobilinogen Ur Leukocyte Esterase Urine HCG, Qual 02/19/19 02/19/19 02/19/19 13:53 14:00 14:00 WBC RBC Hgb Hct MCV MCH MCHC RDW Plt Count MPV Absolute Neuts (auto) Neutrophils % Neutrophils % (Manual) Band Neutrophils % Lymphocytes % Lymphocytes % (Manual) Monocytes % Monocytes % (Manual) Eosinophils % Eosinophils % (Manual) Basophils % Basophils % (Manual) Myelocytes % (Man) Nucleated RBC % Metamyelocytes Anisocytosis Macrocytosis VBG pH POC VBG pCO2 POC VBG pO2 VBG HCO3 VBG O2 Sat (Feliberto) VBG Base Excess Sodium Potassium Chloride Carbon Dioxide Anion Gap BUN Creatinine Est GFR (CKD-EPI)AfAm Est GFR (CKD-EPI)NonAf POC Glucometer > 600 Random Glucose Lactic Acid Calcium Phosphorus Magnesium Total Bilirubin AST ALT Alkaline Phosphatase Total Protein Albumin Lipase Beta-Hydroxybutyrate Urine Color Yellow Urine Appearance Clear Urine pH 5.0 Ur Specific [place] 1.024 Urine Protein Negative Urine Glucose (UA) 3+ H Urine Ketones 3+ H Urine Blood Negative Urine Nitrite Negative Urine Bilirubin Negative Urine Urobilinogen 0.2 Ur Leukocyte Esterase Negative Urine HCG, Qual Negative ASSESSMENT/PLAN: Problem List - Problem (1) DKA (diabetic ketoacidosis) Assessment/Plan: DKA secondary to uncontrolled IDDM, likely secondary to acute infection blood glucose 990>450 on admission insulin drip until anion gap closes CMP q 4 hours Add D5w when glucose below 250 and bridge to levemir sq for 2 hours, then start d5 1/2 to keep bgms between 150-200 keep NPO Code(s): E13.10 - OTH DIABETES MELLITUS WITH KETOACIDOSIS WITHOUT COMA Qualifiers: Diabetes mellitus type: type 1 Diabetes mellitus complication detail: without coma Qualified Code(s): E10.10 - Type 1 diabetes mellitus with ketoacidosis without coma (2) Sepsis Assessment/Plan: WBC 27, tachycardia 130s-140s, lactic acid 5.5 sepsis likely secondary to UTI (has history of UTIs in the past). UA negative for signs of infection. UC pending blood cultures ordered start on ceftriaxone pending ID consult on IVF Monitor in the ICU chest xray with no acute pathology lactic acid 5.5 repeat labs Code(s): A41.9 - SEPSIS, UNSPECIFIED ORGANISM (3) UTI (urinary tract infection) Assessment/Plan: on emperic ceftriaxone pending urine culture UA negative for UTI, but has stong hx of utis along with elevated WBC, lactic acidosis ID consulted Code(s): N39.0 - URINARY TRACT INFECTION, SITE NOT SPECIFIED Qualifiers: Urinary tract infection type: acute cystitis Hematuria presence: without hematuria Qualified Code(s): N30.00 - Acute cystitis without hematuria (4) Abdominal pain Code(s): R10.9 - UNSPECIFIED ABDOMINAL PAIN Qualifiers: Abdominal location: epigastric Qualified Code(s): R10.13 - Epigastric pain (5) Dehydration Code(s): E86.0 - DEHYDRATION (6) Epigastric abdominal pain Code(s): R10.13 - EPIGASTRIC PAIN (7) Nausea & vomiting Code(s): R11.2 - NAUSEA WITH VOMITING, UNSPECIFIED Qualifiers: Vomiting type: unspecified Vomiting Intractability: intractable Qualified Code(s): R11.2 - Nausea with vomiting, unspecified (8) OLEG (acute kidney injury) Code(s): N17.9 - ACUTE KIDNEY FAILURE, UNSPECIFIED Visit type - Emergency Visit Emergency Visit: Yes ED Registration Date: 02/19/19 Care time: The patient presented to the Emergency Department on the above date and was hospitalized for further evaluation of their emergent condition. - New Patient This patient is new to me today: Yes Date on this admission: 02/20/19 - Critical Care Critical Care patient: Yes Total Critical Care Time (in minutes): 60 Critical Care Statement: The care of this patient involved high complexity decision making to prevent further life threatening deterioration of the patient 's condition and/or to evaluate & treat vital organ system(s) failure or risk of failure.
--- NOTE | 2019-02-19 16:01 | CONSULT ---
Consult Consult Specialty:: Pulm/CCM Reason for Consultation:: DKA - History of Present Illness Chief Complaint: high blood sugar,nausea, vomitting History of Present Illness: Pt states she has been taking her insulin until wednesday when she ran out and was unable to reach her PMD. She has had multiple admissions for DKA in the past her and other hospitals. On day of admission she developed polyuria, polydipsia w/ n/v and lethargy prompting ED visit. In the ED she was hyperglycemic BS >900. Labs notable for leukocytosis 27, Corrected Na: 139, potassium 7.0, bicarb 5, AG 33, BUN/SCr 36/1.5, lactate 1.5. Urine (+) ketones, Beta-hydroxy: 103. IVF x2 liters given. Insulin drip bolus and drip started. Pt awaiting transfer to ICU for continued care - History Source History Provided By: Patient, Medical Record - Past Medical History Gastrointestinal: Yes: Constipation, Pancreatitis, Other (Diabetic Gastroparesis ) ...LMP: 10/30/16 Psych: Yes: Anxiety, Depression Endocrine: Yes: Diabetes Mellitus (type 1), Other (dka) - Past Surgical History Past Surgical History: Yes: Upper Endoscopy (spring diabetic gastroparesis) - Alcohol/Substance Use Hx Alcohol Use: No History of Substance Use: reports: Marijuana - Smoking History Smoking history: Never smoked Have you smoked in the past 12 months: Yes Aproximately how many cigarettes per day: 10 - Social History ADL: Independent 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 History of Recent Travel: No Home Medications - Allergies Allergies/Adverse Reactions: Allergies Allergy/AdvReac Type Severity Reaction Status Date / Time No Known Allergies Allergy Verified 12/25/17 09:22 - Home Medications Home Medications: Ambulatory Orders Amitriptyline HCl [Elavil -] 3 tab PO DAILY #0 06/27/15 Acetaminophen [Tylenol] 650 mg PO Q4H PRN #20 tablet 01/17/16 Metoclopramide HCl [Reglan] 10 mg PO Q6H PRN #15 tablet 01/17/16 Ranitidine HCl [Zantac] 150 mg PO BID PRN #20 tablet 01/17/16 Atorvastatin Ca [Lipitor] 40 mg PO HS 12/25/17 Insulin Lispro [Humalog] 100 unit SQ ASDIR 10/20/18 Family Medical History Family History: Unremarkable Review of Systems - Review of Systems Constitutional: reports: Lethargy Gastrointestinal: reports: Nausea, Vomiting Genitourinary: reports: Frequency (increased), Urgency Endocrine: reports: Increased Thirst Physical Exam Vital Signs: Vital Signs Temperature 98.5 F 02/19/19 12:35 Pulse Rate 141 H 02/19/19 12:35 Respiratory Rate 17 02/19/19 12:35 Blood Pressure 121/62 02/19/19 12:35 O2 Sat by Pulse Oximetry (%) 100 02/19/19 14:34 Constitutional: Yes: Anxious Eyes: Yes: Conjunctiva Clear, EOM Intact HENT: Yes: Normocephalic Neck: Yes: Trachea Midline Cardiovascular: Yes: Tachycardia, S1, S2 Respiratory: Yes: CTA Bilaterally, Kussmaul Gastrointestinal: Yes: Normal Bowel Sounds, Soft Extremities: Yes: WNL Edema: No Peripheral Pulses WNL: Yes Integumentary: Yes: WNL Neurological: Yes: Alert, Oriented ...Motor Strength: WNL Psychiatric: Yes: Alert, Oriented Labs: CBC, BMP 02/19/19 12:37 02/19/19 12:37 Laboratory Tests 02/19/19 02/19/19 02/19/19 12:37 12:37 12:37 Lactic Acid 5.5 H* Lipase 41 L Beta-Hydroxybutyrate 103.4 H Imaging - Results Chest X-ray: Report Reviewed (Clear), Image Reviewed Problem List - Problems (1) Dehydration Code(s): E86.0 - DEHYDRATION (2) Leukemoid reaction Code(s): D72.823 - LEUKEMOID REACTION (3) Nausea & vomiting Code(s): R11.2 - NAUSEA WITH VOMITING, UNSPECIFIED Qualifiers: Vomiting type: unspecified Vomiting Intractability: intractable Qualified Code(s): R11.2 - Nausea with vomiting, unspecified (4) Gastroparesis due to DM Code(s): E11.43 - TYPE 2 DIABETES W DIABETIC AUTONOMIC (POLY)NEUROPATHY; K31.84 - GASTROPARESIS (5) DKA (diabetic ketoacidosis) Code(s): E13.10 - OTH DIABETES MELLITUS WITH KETOACIDOSIS WITHOUT COMA Qualifiers: Diabetes mellitus type: type 1 Diabetes mellitus complication detail: without coma Qualified Code(s): E10.10 - Type 1 diabetes mellitus with ketoacidosis without coma Assessment/Plan A/P: 28 yo woman w/ IDDM p/w DKA 2/2 running out of insulin -Insulin drip 0.1units/kg/hr --if BG doesnt fall by 50-70 mg/dl in first hr double insulin infusion until BG drops by 50-70 mg/dl --goal B-200mg/dl until AG closes --if BG fall <70 mg/dl hold insulin x15m and bolus D50 IVP --restart insulin at half prior dose and notify prodiver -IV fluids 100-250ml/hr --corrected sodium >140 use d5 1/2NS --corrected sodium <140 use NS --add D5 once BG reaches 250 mg/dl -potassium replacement --K> 5.5mEq/l no replacement --K 4-5 mEq/l add KCl 20 mEq to each liter of IVF --K 3.5-3.9 mEq/l add KCL 20-40 mEq to each liter of IVF --K 3.1-3.4 mEq/l add KCL 40-60 mEq to each liter of IVF --K <3 mEq/l add KCL 40-80 mEq to each liter of IVF (call provider) -BMP q4hrs until AG closes -Once AG closed and ketosis resolved and able to tolerate PO diet transition to in AM Boerem ACNP Pulm/CCM CCT: 35m
[2019-02-19] MEDS ORDERED: SODIUM CHLORIDE 1,000 ML IV SCH (16:45)
[2019-02-19] MEDS ORDERED: ACETAMINOPHEN 1000 MG/100 ML VIAL (NON FORMULARY) IVPB PRN (18:09)
[2019-02-19] MEDS ORDERED: CEFTRIAXONE 1 GM in DEXTROSE 5%-WATER - 50 ML IVPB SCH (18:15)
[2019-02-19 19:14] LABS: ALBUMIN 3.4 g/dl (3.4-5.0); BILIRUBIN,TOTAL 0.6 mg/dL (0.2-1); BLOOD UREA NITROGEN 36.1 mg/dL (7-18); CALCIUM 8.5 mg/dL (8.5-10.1); CREATININE 1.4 mg/dL (0.55-1.3); POTASSIUM 4.6 mmol/L (3.5-5.1); TOT PROT 6.6 g/dl (6.4-8.2)
[2019-02-19] MEDS ORDERED: PIPERACILLIN/TAZOBACTAM 2.25 GM VIAL IVPB ONE (21:42)
[2019-02-19] MEDS ORDERED: DEXTROSE 5%-WATER - 50 ML IVPB ONE (21:42)
[2019-02-19] MEDS: PIPERACILLIN/TAZOB 2.25 GM 2.25 GM in DEXTROSE 5%-WATER - 50 ML IVPB SCH (21:43)
[2019-02-19] MEDS ORDERED: D5-NS + 20 MEQ KCL - 20 MEQ/1,000 ML INFUS.BAG IV SCH (22:00)
[2019-02-19 22:07] VITALS: BMI 26.7
[2019-02-19 23:11] LABS: ALBUMIN 3.5 g/dl (3.4-5.0); BILIRUBIN,TOTAL 0.7 mg/dL (0.2-1); BLOOD UREA NITROGEN 29.7 mg/dL (7-18); CALCIUM 8.7 mg/dL (8.5-10.1); POTASSIUM 3.9 mmol/L (3.5-5.1)
[2019-02-20] MEDS ORDERED: PANTOPRAZOLE SODIUM 40 MG VIAL IVPUSH ONE
[2019-02-20] MEDS: PIPERACILLIN/TAZOB 2.25 GM 2.25 GM in DEXTROSE 5%-WATER - 50 ML IVPB SCH ×3 (01:17→17:09)
[2019-02-20 02:59] LABS: ALBUMIN 2.9 g/dl (3.4-5.0); BILIRUBIN,TOTAL 0.8 mg/dL (0.2-1); BLOOD UREA NITROGEN 22.2 mg/dL (7-18); CREATININE 0.9 mg/dL (0.55-1.3); POTASSIUM 3.8 mmol/L (3.5-5.1); TOT PROT 6.1 g/dl (6.4-8.2)
[2019-02-20] MEDS ORDERED: ONDANSETRON 4 MG/2 ML VIAL IVPUSH ONE (04:37)
[2019-02-20] MEDS ORDERED: DEXTROSE 5%-WATER - 50 ML IVPB ONE ×3 (04:41→16:51)
[2019-02-20] MEDS ORDERED: PIPERACILLIN/TAZOBACTAM 2.25 GM VIAL IVPB ONE ×3 (04:41→16:51)
[2019-02-20] MEDS ORDERED: D5-NS + 20 MEQ KCL - 20 MEQ/1,000 ML INFUS.BAG IV SCH (04:56)
[2019-02-20] MEDS ORDERED: INSULIN REGULAR 100 UNITS in SODIUM CHLORIDE 99 ML IVPB SCH (05:16)
[2019-02-20 08:03] LABS: ALBUMIN 2.9 g/dl (3.4-5.0); BILIRUBIN,TOTAL 0.8 mg/dL (0.2-1); BLOOD UREA NITROGEN 14.2 mg/dL (7-18); CALCIUM 8.1 mg/dL (8.5-10.1); CREATININE 0.8 mg/dL (0.55-1.3); MAGNESIUM 1.5 mg/dL (1.8-2.4); POTASSIUM 3.7 mmol/L (3.5-5.1)
[2019-02-20] MEDS ORDERED: MAGNESIUM SULF 50% (8.12 MEQ/2 ML-1 GM VIAL) IVPB ONE (08:07)
[2019-02-20 08:32] LABS: BASO % 0.2 % (0-2.0); HEMATOCRIT 33.3 % (32.4-45.2); HEMOGLOBIN 11.3 GM/dL (10.7-15.3); LYMPH % 5.2 % (8-40); MCH 32.2 pg (25.7-33.7); MCHC 33.8 g/dl (32.0-36.0); MEAN PLT VOLUME 8.2 fl (7.5-11.1); MONO % 5.1 % (3.8-10.2); NEUT % 89.5 % (42.8-82.8); PLATELET COUNT 416 K/MM3 (134-434); RDW 12.9 % (11.6-15.6)
[2019-02-20 08:35] LABS: WHITE BLOOD COUNT 31.6 K/mm3 (4.0-10.0)
[2019-02-20] MEDS ORDERED: VANCOMYCIN HCL 1,250 MG in DEXTROSE 5%-WATER - 250 ML IVPB ONE (08:35)
[2019-02-20] MEDS: PANTOPRAZOLE SODIUM 40 MG VIAL IVPUSH SCH ×2 (09:37→21:42)
[2019-02-20] MEDS ORDERED: INSULIN (LEVEMIR) 100 UNITS/ML UNITS SQ ONE ×2 (10:21→10:26)
[2019-02-20 10:52] LABS: PLATELET ESTIMATE NORMAL
[2019-02-20 11:05] LABS: ANISOCYTOSIS 1+; MACROCYTOSIS 1+
[2019-02-20] MEDS: INSULIN SLIDING SCALE (NOVOLOG) 1 VIAL SQ SCH ×3 (11:17→21:52)
--- NOTE | 2019-02-20 11:32 | PN ---
Physical Exam: SUBJECTIVE: Patient seen and examined\ 28 y/o F with hx of type 1 diabetes and gastroparesis admitted to ICU for DKA likely triggered by medical non-compliance as she ran out of insulin. -complained of abdominal pain and 1 episode of non-bloody, non-bilious emesis overnight denies fever, chills, chest pain, diarrhea, headaches, or other pain. OBJECTIVE: Vital Signs Period Temp Pulse Resp BP Sys/Plata Pulse Ox Last 24 Hr 98.1 F-98.5 F 120-141 17-30 121-160/62-98 99-100 GENERAL: The patient is awake, alert, and fully oriented, in no acute distress. HEAD: Normal with no signs of trauma. EYES: extraocular movements intact, sclera anicteric, conjunctiva clear. No ptosis. ENT: Ears normal, nares patent, oropharynx clear without exudates, moist mucous membranes. NECK: Trachea midline, full range of motion, supple. LUNGS: Breath sounds equal, clear to auscultation bilaterally, no wheezes, no crackles, no accessory muscle use. HEART: Regular rate and rhythm, S1, S2 without murmur, rub or gallop. ABDOMEN: Soft, epigasatric tenderness, no rebound, no hepatosplenomegaly, no masses. EXTREMITIES: 2+ pulses, warm, well-perfused, no edema. NEUROLOGICAL: Cranial nerves II through XII grossly intact. Normal speech, gait not observed. PSYCH: Normal mood, normal affect. SKIN: Warm, dry, normal turgor, no rashes or lesions noted Laboratory Results - last 24 hr 02/19/19 02/19/19 02/19/19 12:30 12:33 12:37 WBC RBC Hgb Hct MCV MCH MCHC RDW Plt Count MPV Absolute Neuts (auto) Neutrophils % Neutrophils % (Manual) Band Neutrophils % Lymphocytes % Lymphocytes % (Manual) Monocytes % Monocytes % (Manual) Eosinophils % Eosinophils % (Manual) Basophils % Basophils % (Manual) Myelocytes % (Man) Promyelocytes % (Man) Blast Cells % (Manual) Nucleated RBC % Metamyelocytes Hypochromia Platelet Estimate Platelet Comment Polychromasia Poikilocytosis Anisocytosis Microcytosis Macrocytosis VBG pH 7.06 L* POC VBG pCO2 18.5 L POC VBG pO2 89.4 H VBG HCO3 5.0 L VBG O2 Sat (Feliberto) 91.2 H VBG Base Excess -24.8 L Sodium 120 L Potassium 7.3 H* Chloride 82 L Carbon Dioxide 5 L Anion Gap 33 H BUN 36.4 H Creatinine 1.5 H Est GFR (CKD-EPI)AfAm 54.38 Est GFR (CKD-EPI)NonAf 46.92 POC Glucometer > 600 Random Glucose 990 H* Hemoglobin A1c % Lactic Acid Calcium 9.4 Phosphorus 8.2 H Magnesium 2.2 Total Bilirubin 1.0 AST 8 L ALT 18 Alkaline Phosphatase 179 H Total Protein 7.1 Albumin 3.6 Lipase 41 L Beta-Hydroxybutyrate Urine Color Urine Appearance Urine pH Ur Specific Bowie Urine Protein Urine Glucose (UA) Urine Ketones Urine Blood Urine Nitrite Urine Bilirubin Urine Urobilinogen Ur Leukocyte Esterase Urine HCG, Qual 02/19/19 02/19/19 02/19/19 12:37 12:37 12:37 WBC 27.2 H RBC 3.85 Hgb 12.6 Hct 41.6 MCV 108.0 H MCH 32.6 MCHC 30.2 L RDW 14.1 Plt Count 453 H MPV 8.9 Absolute Neuts (auto) 25.7 H Neutrophils % 94.6 H Neutrophils % (Manual) 89.0 H Band Neutrophils % 5.0 Lymphocytes % 2.8 L D Lymphocytes % (Manual) 3.0 L D Monocytes % 2.0 L Monocytes % (Manual) 1 L Eosinophils % 0.0 Eosinophils % (Manual) 0.0 D Basophils % 0.6 Basophils % (Manual) 0.0 Myelocytes % (Man) 2 Promyelocytes % (Man) Blast Cells % (Manual) Nucleated RBC % 0 Metamyelocytes 0 Hypochromia Platelet Estimate Platelet Comment Polychromasia Poikilocytosis Anisocytosis 1+ Microcytosis Macrocytosis 1+ VBG pH POC VBG pCO2 POC VBG pO2 VBG HCO3 VBG O2 Sat (Feliberto) VBG Base Excess Sodium Potassium Chloride Carbon Dioxide Anion Gap BUN Creatinine Est GFR (CKD-EPI)AfAm Est GFR (CKD-EPI)NonAf POC Glucometer Random Glucose Hemoglobin A1c % Lactic Acid 5.5 H* Calcium Phosphorus Magnesium Total Bilirubin AST ALT Alkaline Phosphatase Total Protein Albumin Lipase Beta-Hydroxybutyrate 103.4 H Urine Color Urine Appearance Urine pH Ur Specific [place]ie Urine Protein Urine Glucose (UA) Urine Ketones Urine Blood Urine Nitrite Urine Bilirubin Urine Urobilinogen Ur Leukocyte Esterase Urine HCG, Qual 02/19/19 02/19/19 02/19/19 13:53 14:00 14:00 WBC RBC Hgb Hct MCV MCH MCHC RDW Plt Count MPV Absolute Neuts (auto) Neutrophils % Neutrophils % (Manual) Band Neutrophils % Lymphocytes % Lymphocytes % (Manual) Monocytes % Monocytes % (Manual) Eosinophils % Eosinophils % (Manual) Basophils % Basophils % (Manual) Myelocytes % (Man) Promyelocytes % (Man) Blast Cells % (Manual) Nucleated RBC % Metamyelocytes Hypochromia Platelet Estimate Platelet Comment Polychromasia Poikilocytosis Anisocytosis Microcytosis Macrocytosis VBG pH POC VBG pCO2 POC VBG pO2 VBG HCO3 VBG O2 Sat (Feliberto) VBG Base Excess Sodium Potassium Chloride Carbon Dioxide Anion Gap BUN Creatinine Est GFR (CKD-EPI)AfAm Est GFR (CKD-EPI)NonAf POC Glucometer > 600 Random Glucose Hemoglobin A1c % Lactic Acid Calcium Phosphorus Magnesium Total Bilirubin AST ALT Alkaline Phosphatase Total Protein Albumin Lipase Beta-Hydroxybutyrate Urine Color Yellow Urine Appearance Clear Urine pH 5.0 Ur Specific Bowie 1.024 Urine Protein Negative Urine Glucose (UA) 3+ H Urine Ketones 3+ H Urine Blood Negative Urine Nitrite Negative Urine Bilirubin Negative Urine Urobilinogen 0.2 Ur Leukocyte Esterase Negative Urine HCG, Qual Negative 02/19/19 02/19/19 02/19/19 16:17 17:26 18:10 WBC RBC Hgb Hct MCV MCH MCHC RDW Plt Count MPV Absolute Neuts (auto) Neutrophils % Neutrophils % (Manual) Band Neutrophils % Lymphocytes % Lymphocytes % (Manual) Monocytes % Monocytes % (Manual) Eosinophils % Eosinophils % (Manual) Basophils % Basophils % (Manual) Myelocytes % (Man) Promyelocytes % (Man) Blast Cells % (Manual) Nucleated RBC % Metamyelocytes Hypochromia Platelet Estimate Platelet Comment Polychromasia Poikilocytosis Anisocytosis Microcytosis Macrocytosis VBG pH POC VBG pCO2 POC VBG pO2 VBG HCO3 VBG O2 Sat (Feliberto) VBG Base Excess Sodium Potassium Chloride Carbon Dioxide Anion Gap BUN Creatinine Est GFR (CKD-EPI)AfAm Est GFR (CKD-EPI)NonAf POC Glucometer 591 424 Random Glucose Hemoglobin A1c % Lactic Acid 2.5 H* Calcium Phosphorus Magnesium Total Bilirubin AST ALT Alkaline Phosphatase Total Protein Albumin Lipase Beta-Hydroxybutyrate Urine Color Urine Appearance Urine pH Ur Specific [place]ie Urine Protein Urine Glucose (UA) Urine Ketones Urine Blood Urine Nitrite Urine Bilirubin Urine Urobilinogen Ur Leukocyte Esterase Urine HCG, Qual 02/19/19 02/19/19 02/19/19 18:10 20:22 21:39 WBC RBC Hgb Hct MCV MCH MCHC RDW Plt Count MPV Absolute Neuts (auto) Neutrophils % Neutrophils % (Manual) Band Neutrophils % Lymphocytes % Lymphocytes % (Manual) Monocytes % Monocytes % (Manual) Eosinophils % Eosinophils % (Manual) Basophils % Basophils % (Manual) Myelocytes % (Man) Promyelocytes % (Man) Blast Cells % (Manual) Nucleated RBC % Metamyelocytes Hypochromia Platelet Estimate Platelet Comment Polychromasia Poikilocytosis Anisocytosis Microcytosis Macrocytosis VBG pH POC VBG pCO2 POC VBG pO2 VBG HCO3 VBG O2 Sat (Feliberto) VBG Base Excess Sodium 132 L Potassium 4.6 Chloride 101 Carbon Dioxide 13 L Anion Gap 17 H BUN 36.1 H Creatinine 1.4 H Est GFR (CKD-EPI)AfAm 59.11 Est GFR (CKD-EPI)NonAf 51.00 POC Glucometer 264 231 Random Glucose 397 H Hemoglobin A1c % Lactic Acid Calcium 8.5 Phosphorus Magnesium Total Bilirubin 0.6 AST 8 L ALT 20 Alkaline Phosphatase 152 H Total Protein 6.6 Albumin 3.4 Lipase Beta-Hydroxybutyrate Cancelled Urine Color Urine Appearance Urine pH Ur Specific [place]ie Urine Protein Urine Glucose (UA) Urine Ketones Urine Blood Urine Nitrite Urine Bilirubin Urine Urobilinogen Ur Leukocyte Esterase Urine HCG, Qual 02/19/19 02/19/19 02/19/19 21:50 21:50 21:50 WBC RBC Hgb Hct MCV MCH MCHC RDW Plt Count MPV Absolute Neuts (auto) Neutrophils % Neutrophils % (Manual) Band Neutrophils % Lymphocytes % Lymphocytes % (Manual) Monocytes % Monocytes % (Manual) Eosinophils % Eosinophils % (Manual) Basophils % Basophils % (Manual) Myelocytes % (Man) Promyelocytes % (Man) Blast Cells % (Manual) Nucleated RBC % Metamyelocytes Hypochromia Platelet Estimate Platelet Comment Polychromasia Poikilocytosis Anisocytosis Microcytosis Macrocytosis VBG pH POC VBG pCO2 POC VBG pO2 VBG HCO3 VBG O2 Sat (Feliberto) VBG Base Excess Sodium 135 L Potassium 3.9 Chloride 104 Carbon Dioxide 17 L Anion Gap 14 BUN 29.7 H Creatinine 1.0 Est GFR (CKD-EPI)AfAm 88.79 Est GFR (CKD-EPI)NonAf 76.61 POC Glucometer Random Glucose 219 H Hemoglobin A1c % Lactic Acid 1.4 Calcium 8.7 Phosphorus Magnesium Total Bilirubin 0.7 AST 10 L ALT 22 Alkaline Phosphatase 153 H Total Protein 7.0 Albumin 3.5 Lipase Beta-Hydroxybutyrate 35.8 H Cancelled Urine Color Urine Appearance Urine pH Ur Specific [place] Urine Protein Urine Glucose (UA) Urine Ketones Urine Blood Urine Nitrite Urine Bilirubin Urine Urobilinogen Ur Leukocyte Esterase Urine HCG, Qual 02/19/19 02/20/19 02/20/19 23:05 00:01 01:14 WBC RBC Hgb Hct MCV MCH MCHC RDW Plt Count MPV Absolute Neuts (auto) Neutrophils % Neutrophils % (Manual) Band Neutrophils % Lymphocytes % Lymphocytes % (Manual) Monocytes % Monocytes % (Manual) Eosinophils % Eosinophils % (Manual) Basophils % Basophils % (Manual) Myelocytes % (Man) Promyelocytes % (Man) Blast Cells % (Manual) Nucleated RBC % Metamyelocytes Hypochromia Platelet Estimate Platelet Comment Polychromasia Poikilocytosis Anisocytosis Microcytosis Macrocytosis VBG pH POC VBG pCO2 POC VBG pO2 VBG HCO3 VBG O2 Sat (Feliberto) VBG Base Excess Sodium Potassium Chloride Carbon Dioxide Anion Gap BUN Creatinine Est GFR (CKD-EPI)AfAm Est GFR (CKD-EPI)NonAf POC Glucometer 208 195 215 Random Glucose Hemoglobin A1c % Lactic Acid Calcium Phosphorus Magnesium Total Bilirubin AST ALT Alkaline Phosphatase Total Protein Albumin Lipase Beta-Hydroxybutyrate Urine Color Urine Appearance Urine pH Ur Specific [place] Urine Protein Urine Glucose (UA) Urine Ketones Urine Blood Urine Nitrite Urine Bilirubin Urine Urobilinogen Ur Leukocyte Esterase Urine HCG, Qual 02/20/19 02/20/19 02/20/19 02:00 02:09 04:13 WBC RBC Hgb Hct MCV MCH MCHC RDW Plt Count MPV Absolute Neuts (auto) Neutrophils % Neutrophils % (Manual) Band Neutrophils % Lymphocytes % Lymphocytes % (Manual) Monocytes % Monocytes % (Manual) Eosinophils % Eosinophils % (Manual) Basophils % Basophils % (Manual) Myelocytes % (Man) Promyelocytes % (Man) Blast Cells % (Manual) Nucleated RBC % Metamyelocytes Hypochromia Platelet Estimate Platelet Comment Polychromasia Poikilocytosis Anisocytosis Microcytosis Macrocytosis VBG pH POC VBG pCO2 POC VBG pO2 VBG HCO3 VBG O2 Sat (Feliberto) VBG Base Excess Sodium 136 Potassium 3.8 Chloride 106 Carbon Dioxide 20 L Anion Gap 11 BUN 22.2 H Creatinine 0.9 Est GFR (CKD-EPI)AfAm 100.85 Est GFR (CKD-EPI)NonAf 87.01 POC Glucometer 191 222 Random Glucose 199 H Hemoglobin A1c % Lactic Acid Calcium 8.0 L Phosphorus Magnesium Total Bilirubin 0.8 AST 9 L ALT 18 Alkaline Phosphatase 138 H Total Protein 6.1 L Albumin 2.9 L Lipase Beta-Hydroxybutyrate Urine Color Urine Appearance Urine pH Ur Specific [place] Urine Protein Urine Glucose (UA) Urine Ketones Urine Blood Urine Nitrite Urine Bilirubin Urine Urobilinogen Ur Leukocyte Esterase Urine HCG, Qual 02/20/19 02/20/19 02/20/19 05:06 06:48 06:48 WBC 31.6 H* RBC 3.50 L Hgb 11.3 Hct 33.3 D MCV 95.0 D MCH 32.2 MCHC 33.8 RDW 12.9 Plt Count 416 MPV 8.2 Absolute Neuts (auto) 28.3 H Neutrophils % 89.5 H Neutrophils % (Manual) 86.0 H Band Neutrophils % 5.0 Lymphocytes % 5.2 L D Lymphocytes % (Manual) 7.0 L D Monocytes % 5.1 D Monocytes % (Manual) 2 L D Eosinophils % 0.0 Eosinophils % (Manual) 0.0 Basophils % 0.2 Basophils % (Manual) 0.0 Myelocytes % (Man) 0 D Promyelocytes % (Man) 0 Blast Cells % (Manual) 0 Nucleated RBC % 0 Metamyelocytes 0 Hypochromia 1+ Platelet Estimate Normal Platelet Comment No clumping noted Polychromasia 0 Poikilocytosis 0 Anisocytosis 1+ Microcytosis 0 Macrocytosis 1+ VBG pH POC VBG pCO2 POC VBG pO2 VBG HCO3 VBG O2 Sat (Feliberto) VBG Base Excess Sodium 136 Potassium 3.7 Chloride 105 Carbon Dioxide 19 L Anion Gap 12 BUN 14.2 Creatinine 0.8 Est GFR (CKD-EPI)AfAm 116.28 Est GFR (CKD-EPI)NonAf 100.33 POC Glucometer 164 Random Glucose 159 H Hemoglobin A1c % Lactic Acid Calcium 8.1 L Phosphorus 2.0 L Magnesium 1.5 L Total Bilirubin 0.8 AST 9 L ALT 18 Alkaline Phosphatase 128 H Total Protein 6.0 L Albumin 2.9 L Lipase Beta-Hydroxybutyrate Urine Color Urine Appearance Urine pH Ur Specific [place] Urine Protein Urine Glucose (UA) Urine Ketones Urine Blood Urine Nitrite Urine Bilirubin Urine Urobilinogen Ur Leukocyte Esterase Urine HCG, Qual 02/20/19 02/20/19 02/20/19 06:48 07:03 08:02 WBC RBC Hgb Hct MCV MCH MCHC RDW Plt Count MPV Absolute Neuts (auto) Neutrophils % Neutrophils % (Manual) Band Neutrophils % Lymphocytes % Lymphocytes % (Manual) Monocytes % Monocytes % (Manual) Eosinophils % Eosinophils % (Manual) Basophils % Basophils % (Manual) Myelocytes % (Man) Promyelocytes % (Man) Blast Cells % (Manual) Nucleated RBC % Metamyelocytes Hypochromia Platelet Estimate Platelet Comment Polychromasia Poikilocytosis Anisocytosis Microcytosis Macrocytosis VBG pH POC VBG pCO2 POC VBG pO2 VBG HCO3 VBG O2 Sat (Feliberto) VBG Base Excess Sodium Potassium Chloride Carbon Dioxide Anion Gap BUN Creatinine Est GFR (CKD-EPI)AfAm Est GFR (CKD-EPI)NonAf POC Glucometer 170 164 Random Glucose Hemoglobin A1c % 8.9 H Lactic Acid Calcium Phosphorus Magnesium Total Bilirubin AST ALT Alkaline Phosphatase Total Protein Albumin Lipase Beta-Hydroxybutyrate Urine Color Urine Appearance Urine pH Ur Specific [place] Urine Protein Urine Glucose (UA) Urine Ketones Urine Blood Urine Nitrite Urine Bilirubin Urine Urobilinogen Ur Leukocyte Esterase Urine HCG, Qual 02/20/19 02/20/19 09:36 11:09 WBC RBC Hgb Hct MCV MCH MCHC RDW Plt Count MPV Absolute Neuts (auto) Neutrophils % Neutrophils % (Manual) Band Neutrophils % Lymphocytes % Lymphocytes % (Manual) Monocytes % Monocytes % (Manual) Eosinophils % Eosinophils % (Manual) Basophils % Basophils % (Manual) Myelocytes % (Man) Promyelocytes % (Man) Blast Cells % (Manual) Nucleated RBC % Metamyelocytes Hypochromia Platelet Estimate Platelet Comment Polychromasia Poikilocytosis Anisocytosis Microcytosis Macrocytosis VBG pH POC VBG pCO2 POC VBG pO2 VBG HCO3 VBG O2 Sat (Feliberto) VBG Base Excess Sodium Potassium Chloride Carbon Dioxide Anion Gap BUN Creatinine Est GFR (CKD-EPI)AfAm Est GFR (CKD-EPI)NonAf POC Glucometer 162 176 Random Glucose Hemoglobin A1c % Lactic Acid Calcium Phosphorus Magnesium Total Bilirubin AST ALT Alkaline Phosphatase Total Protein Albumin Lipase Beta-Hydroxybutyrate Urine Color Urine Appearance Urine pH Ur Specific [place] Urine Protein Urine Glucose (UA) Urine Ketones Urine Blood Urine Nitrite Urine Bilirubin Urine Urobilinogen Ur Leukocyte Esterase Urine HCG, Qual Active Medications Generic Name Dose Route Start Last Admin Trade Name Freq PRN Reason Stop Dose Admin Acetaminophen 1,000 mg 02/19/19 18:09 02/19/19 23:18 Ofirmev Injection - IVPB 1,000 mg Q6H PRN Administration PAIN LEVEL 4 - 6 Piperacillin Sod/Tazobactam 50 mls @ 100 mls/hr 02/19/19 21:15 02/20/19 09:37 Sod 2.25 gm/ Dextrose IVPB 100 mls/hr Q8H-IV KARLENE Administration Protocol Dextrose/Sodium Chloride 20 meq in 1,000 mls @ 125 mls/hr 02/20/19 04:56 05:13 Dextrose 5%-Normal Saline+20 Meq Kcl - IV Not Given ASDIR KARLENE Insulin Human Regular 100 100 mls @ 5 mls/hr 02/20/19 05:16 02/20/19 05:42 units/ Sodium Chloride IVPB 02/20/19 12:30 5 units/hr TITR KARLENE 5 mls/hr Administration Protocol 5 UNITS/HR Insulin Aspart 1 vial 02/20/19 11:00 02/20/19 11:17 Novolog Vial Sliding Scale - SQ 2 units ACHS KARLENE Administration Protocol Pantoprazole Sodium 40 mg 02/20/19 10:00 02/20/19 09:37 Protonix Iv IVPUSH 40 mg BID KARLENE Administration ASSESSMENT/PLAN: Endocrine: d/c insulin drip as patients anion gap has closed. long acting insulin 16 units administered as well as sliding scale in anticipation of PO challenge today. patient receiving d5 with normal saline and 20meq KCL as last K+ was 3.9 Infectious: one time vancomycin for antibiotic coverage as patient was tachycardic this a.m. pt has also received Zosyn Bmp q4hrs Visit type - Emergency Visit Emergency Visit: Yes ED Registration Date: 02/19/19 Care time: The patient presented to the Emergency Department on the above date and was hospitalized for further evaluation of their emergent condition. - New Patient This patient is new to me today: Yes Date on this admission: 02/21/19 - Critical Care Critical Care patient: No - Discharge Referral Referred to [facility] No
--- NOTE | 2019-02-20 11:44 | PN ---
Teaching Attending Note Name of Resident: Rudy Turpin ATTENDING PHYSICIAN STATEMENT I saw and evaluated the patient. I reviewed the resident's note and discussed the case with the resident. I agree with the resident's findings and plan as documented. SUBJECTIVE: Patient seen and examined in the ICU. Resting in NAD. Remains on IV Insulin drip. Denies CP or SOB. Intake & Output 02/17/19 02/18/19 02/19/19 02/20/19 23:59 23:59 23:59 23:59 Intake Total 1734 Output Total 400 1600 Balance -400 134 Weight 170 lb 170 lb Last Vital Signs Temp Pulse Resp BP Pulse Ox 98.3 F 121 H 25 H 152/96 100 02/20/19 06:07 02/20/19 06:07 02/20/19 06:07 02/20/19 06:07 02/19/19 21:56 Active Medications Acetaminophen (Ofirmev Injection -) 1,000 mg IVPB Q6H PRN PRN Reason: PAIN LEVEL 4 - 6 Last Admin: 02/19/19 23:18 Dose: 1,000 mg Piperacillin Sod/Tazobactam (Sod 2.25 gm/ Dextrose) 50 mls @ 100 mls/hr IVPB Q8H-IV KARLENE; Protocol Last Admin: 02/20/19 09:37 Dose: 100 mls/hr Dextrose/Sodium Chloride (Dextrose 5%-Normal Saline+20 Meq Kcl -) 20 meq in 1, 000 mls @ 125 mls/hr IV ASDIR KARLENE Last Admin: 02/20/19 05:13 Dose: Not Given Insulin Human Regular 100 (units/ Sodium Chloride) 100 mls @ 5 mls/hr IVPB TITR KARLENE; Protocol Stop: 02/20/19 12:30 Last Admin: 02/20/19 05:42 Dose: 5 units/hr, 5 mls/hr Insulin Aspart (Novolog Vial Sliding Scale -) 1 vial SQ ACHS KARLENE; Protocol Last Admin: 02/20/19 11:17 Dose: 2 units Pantoprazole Sodium (Protonix Iv) 40 mg IVPUSH BID KARLENE Last Admin: 02/20/19 09:37 Dose: 40 mg Constitutional: Yes: NAD Eyes: Yes: Conjunctiva Clear, EOM Intact HENT: Yes: Normocephalic Neck: Yes: Trachea Midline Cardiovascular: Yes: Tachycardia, S1, S2 Respiratory: Yes: CTA Bilaterally Gastrointestinal: Yes: Normal Bowel Sounds, Soft Extremities: Yes: WNL Edema: No Peripheral Pulses WNL: Yes Integumentary: Yes: WNL Neurological: Yes: Alert, Oriented ...Motor Strength: WNL Psychiatric: Yes: Alert, Oriented Labs: Laboratory Results - last 24 hr 02/19/19 02/19/19 02/19/19 12:30 12:33 12:37 WBC RBC Hgb Hct MCV MCH MCHC RDW Plt Count MPV Absolute Neuts (auto) Neutrophils % Neutrophils % (Manual) Band Neutrophils % Lymphocytes % Lymphocytes % (Manual) Monocytes % Monocytes % (Manual) Eosinophils % Eosinophils % (Manual) Basophils % Basophils % (Manual) Myelocytes % (Man) Promyelocytes % (Man) Blast Cells % (Manual) Nucleated RBC % Metamyelocytes Hypochromia Platelet Estimate Platelet Comment Polychromasia Poikilocytosis Anisocytosis Microcytosis Macrocytosis VBG pH 7.06 L* POC VBG pCO2 18.5 L POC VBG pO2 89.4 H VBG HCO3 5.0 L VBG O2 Sat (Feliberto) 91.2 H VBG Base Excess -24.8 L Sodium 120 L Potassium 7.3 H* Chloride 82 L Carbon Dioxide 5 L Anion Gap 33 H BUN 36.4 H Creatinine 1.5 H Est GFR (CKD-EPI)AfAm 54.38 Est GFR (CKD-EPI)NonAf 46.92 POC Glucometer > 600 Random Glucose 990 H* Hemoglobin A1c % Lactic Acid Calcium 9.4 Phosphorus 8.2 H Magnesium 2.2 Total Bilirubin 1.0 AST 8 L ALT 18 Alkaline Phosphatase 179 H Total Protein 7.1 Albumin 3.6 Lipase 41 L Beta-Hydroxybutyrate Urine Color Urine Appearance Urine pH Ur Specific Ewing Urine Protein Urine Glucose (UA) Urine Ketones Urine Blood Urine Nitrite Urine Bilirubin Urine Urobilinogen Ur Leukocyte Esterase Urine HCG, Qual 02/19/19 02/19/19 02/19/19 12:37 12:37 12:37 WBC 27.2 H RBC 3.85 Hgb 12.6 Hct 41.6 MCV 108.0 H MCH 32.6 MCHC 30.2 L RDW 14.1 Plt Count 453 H MPV 8.9 Absolute Neuts (auto) 25.7 H Neutrophils % 94.6 H Neutrophils % (Manual) 89.0 H Band Neutrophils % 5.0 Lymphocytes % 2.8 L D Lymphocytes % (Manual) 3.0 L D Monocytes % 2.0 L Monocytes % (Manual) 1 L Eosinophils % 0.0 Eosinophils % (Manual) 0.0 D Basophils % 0.6 Basophils % (Manual) 0.0 Myelocytes % (Man) 2 Promyelocytes % (Man) Blast Cells % (Manual) Nucleated RBC % 0 Metamyelocytes 0 Hypochromia Platelet Estimate Platelet Comment Polychromasia Poikilocytosis Anisocytosis 1+ Microcytosis Macrocytosis 1+ VBG pH POC VBG pCO2 POC VBG pO2 VBG HCO3 VBG O2 Sat (Feliberto) VBG Base Excess Sodium Potassium Chloride Carbon Dioxide Anion Gap BUN Creatinine Est GFR (CKD-EPI)AfAm Est GFR (CKD-EPI)NonAf POC Glucometer Random Glucose Hemoglobin A1c % Lactic Acid 5.5 H* Calcium Phosphorus Magnesium Total Bilirubin AST ALT Alkaline Phosphatase Total Protein Albumin Lipase Beta-Hydroxybutyrate 103.4 H Urine Color Urine Appearance Urine pH Ur Specific Ewing Urine Protein Urine Glucose (UA) Urine Ketones Urine Blood Urine Nitrite Urine Bilirubin Urine Urobilinogen Ur Leukocyte Esterase Urine HCG, Qual 02/19/19 02/19/19 02/19/19 13:53 14:00 14:00 WBC RBC Hgb Hct MCV MCH MCHC RDW Plt Count MPV Absolute Neuts (auto) Neutrophils % Neutrophils % (Manual) Band Neutrophils % Lymphocytes % Lymphocytes % (Manual) Monocytes % Monocytes % (Manual) Eosinophils % Eosinophils % (Manual) Basophils % Basophils % (Manual) Myelocytes % (Man) Promyelocytes % (Man) Blast Cells % (Manual) Nucleated RBC % Metamyelocytes Hypochromia Platelet Estimate Platelet Comment Polychromasia Poikilocytosis Anisocytosis Microcytosis Macrocytosis VBG pH POC VBG pCO2 POC VBG pO2 VBG HCO3 VBG O2 Sat (Feliberto) VBG Base Excess Sodium Potassium Chloride Carbon Dioxide Anion Gap BUN Creatinine Est GFR (CKD-EPI)AfAm Est GFR (CKD-EPI)NonAf POC Glucometer > 600 Random Glucose Hemoglobin A1c % Lactic Acid Calcium Phosphorus Magnesium Total Bilirubin AST ALT Alkaline Phosphatase Total Protein Albumin Lipase Beta-Hydroxybutyrate Urine Color Yellow Urine Appearance Clear Urine pH 5.0 Ur Specific Ewing 1.024 Urine Protein Negative Urine Glucose (UA) 3+ H Urine Ketones 3+ H Urine Blood Negative Urine Nitrite Negative Urine Bilirubin Negative Urine Urobilinogen 0.2 Ur Leukocyte Esterase Negative Urine HCG, Qual Negative 02/19/19 02/19/19 02/19/19 16:17 17:26 18:10 WBC RBC Hgb Hct MCV MCH MCHC RDW Plt Count MPV Absolute Neuts (auto) Neutrophils % Neutrophils % (Manual) Band Neutrophils % Lymphocytes % Lymphocytes % (Manual) Monocytes % Monocytes % (Manual) Eosinophils % Eosinophils % (Manual) Basophils % Basophils % (Manual) Myelocytes % (Man) Promyelocytes % (Man) Blast Cells % (Manual) Nucleated RBC % Metamyelocytes Hypochromia Platelet Estimate Platelet Comment Polychromasia Poikilocytosis Anisocytosis Microcytosis Macrocytosis VBG pH POC VBG pCO2 POC VBG pO2 VBG HCO3 VBG O2 Sat (Feliberto) VBG Base Excess Sodium Potassium Chloride Carbon Dioxide Anion Gap BUN Creatinine Est GFR (CKD-EPI)AfAm Est GFR (CKD-EPI)NonAf POC Glucometer 591 424 Random Glucose Hemoglobin A1c % Lactic Acid 2.5 H* Calcium Phosphorus Magnesium Total Bilirubin AST ALT Alkaline Phosphatase Total Protein Albumin Lipase Beta-Hydroxybutyrate Urine Color Urine Appearance Urine pH Ur Specific Ewing Urine Protein Urine Glucose (UA) Urine Ketones Urine Blood Urine Nitrite Urine Bilirubin Urine Urobilinogen Ur Leukocyte Esterase Urine HCG, Qual 02/19/19 02/19/19 02/19/19 18:10 20:22 21:39 WBC RBC Hgb Hct MCV MCH MCHC RDW Plt Count MPV Absolute Neuts (auto) Neutrophils % Neutrophils % (Manual) Band Neutrophils % Lymphocytes % Lymphocytes % (Manual) Monocytes % Monocytes % (Manual) Eosinophils % Eosinophils % (Manual) Basophils % Basophils % (Manual) Myelocytes % (Man) Promyelocytes % (Man) Blast Cells % (Manual) Nucleated RBC % Metamyelocytes Hypochromia Platelet Estimate Platelet Comment Polychromasia Poikilocytosis Anisocytosis Microcytosis Macrocytosis VBG pH POC VBG pCO2 POC VBG pO2 VBG HCO3 VBG O2 Sat (Feliberto) VBG Base Excess Sodium 132 L Potassium 4.6 Chloride 101 Carbon Dioxide 13 L Anion Gap 17 H BUN 36.1 H Creatinine 1.4 H Est GFR (CKD-EPI)AfAm 59.11 Est GFR (CKD-EPI)NonAf 51.00 POC Glucometer 264 231 Random Glucose 397 H Hemoglobin A1c % Lactic Acid Calcium 8.5 Phosphorus Magnesium Total Bilirubin 0.6 AST 8 L ALT 20 Alkaline Phosphatase 152 H Total Protein 6.6 Albumin 3.4 Lipase Beta-Hydroxybutyrate Cancelled Urine Color Urine Appearance Urine pH Ur Specific Ewing Urine Protein Urine Glucose (UA) Urine Ketones Urine Blood Urine Nitrite Urine Bilirubin Urine Urobilinogen Ur Leukocyte Esterase Urine HCG, Qual 02/19/19 02/19/19 02/19/19 21:50 21:50 21:50 WBC RBC Hgb Hct MCV MCH MCHC RDW Plt Count MPV Absolute Neuts (auto) Neutrophils % Neutrophils % (Manual) Band Neutrophils % Lymphocytes % Lymphocytes % (Manual) Monocytes % Monocytes % (Manual) Eosinophils % Eosinophils % (Manual) Basophils % Basophils % (Manual) Myelocytes % (Man) Promyelocytes % (Man) Blast Cells % (Manual) Nucleated RBC % Metamyelocytes Hypochromia Platelet Estimate Platelet Comment Polychromasia Poikilocytosis Anisocytosis Microcytosis Macrocytosis VBG pH POC VBG pCO2 POC VBG pO2 VBG HCO3 VBG O2 Sat (Feliberto) VBG Base Excess Sodium 135 L Potassium 3.9 Chloride 104 Carbon Dioxide 17 L Anion Gap 14 BUN 29.7 H Creatinine 1.0 Est GFR (CKD-EPI)AfAm 88.79 Est GFR (CKD-EPI)NonAf 76.61 POC Glucometer Random Glucose 219 H Hemoglobin A1c % Lactic Acid 1.4 Calcium 8.7 Phosphorus Magnesium Total Bilirubin 0.7 AST 10 L ALT 22 Alkaline Phosphatase 153 H Total Protein 7.0 Albumin 3.5 Lipase Beta-Hydroxybutyrate 35.8 H Cancelled Urine Color Urine Appearance Urine pH Ur Specific Ewing Urine Protein Urine Glucose (UA) Urine Ketones Urine Blood Urine Nitrite Urine Bilirubin Urine Urobilinogen Ur Leukocyte Esterase Urine HCG, Qual 02/19/19 02/20/19 02/20/19 23:05 00:01 01:14 WBC RBC Hgb Hct MCV MCH MCHC RDW Plt Count MPV Absolute Neuts (auto) Neutrophils % Neutrophils % (Manual) Band Neutrophils % Lymphocytes % Lymphocytes % (Manual) Monocytes % Monocytes % (Manual) Eosinophils % Eosinophils % (Manual) Basophils % Basophils % (Manual) Myelocytes % (Man) Promyelocytes % (Man) Blast Cells % (Manual) Nucleated RBC % Metamyelocytes Hypochromia Platelet Estimate Platelet Comment Polychromasia Poikilocytosis Anisocytosis Microcytosis Macrocytosis VBG pH POC VBG pCO2 POC VBG pO2 VBG HCO3 VBG O2 Sat (Feliberto) VBG Base Excess Sodium Potassium Chloride Carbon Dioxide Anion Gap BUN Creatinine Est GFR (CKD-EPI)AfAm Est GFR (CKD-EPI)NonAf POC Glucometer 208 195 215 Random Glucose Hemoglobin A1c % Lactic Acid Calcium Phosphorus Magnesium Total Bilirubin AST ALT Alkaline Phosphatase Total Protein Albumin Lipase Beta-Hydroxybutyrate Urine Color Urine Appearance Urine pH Ur Specific Ewing Urine Protein Urine Glucose (UA) Urine Ketones Urine Blood Urine Nitrite Urine Bilirubin Urine Urobilinogen Ur Leukocyte Esterase Urine HCG, Qual 02/20/19 02/20/19 02/20/19 02:00 02:09 04:13 WBC RBC Hgb Hct MCV MCH MCHC RDW Plt Count MPV Absolute Neuts (auto) Neutrophils % Neutrophils % (Manual) Band Neutrophils % Lymphocytes % Lymphocytes % (Manual) Monocytes % Monocytes % (Manual) Eosinophils % Eosinophils % (Manual) Basophils % Basophils % (Manual) Myelocytes % (Man) Promyelocytes % (Man) Blast Cells % (Manual) Nucleated RBC % Metamyelocytes Hypochromia Platelet Estimate Platelet Comment Polychromasia Poikilocytosis Anisocytosis Microcytosis Macrocytosis VBG pH POC VBG pCO2 POC VBG pO2 VBG HCO3 VBG O2 Sat (Feliberto) VBG Base Excess Sodium 136 Potassium 3.8 Chloride 106 Carbon Dioxide 20 L Anion Gap 11 BUN 22.2 H Creatinine 0.9 Est GFR (CKD-EPI)AfAm 100.85 Est GFR (CKD-EPI)NonAf 87.01 POC Glucometer 191 222 Random Glucose 199 H Hemoglobin A1c % Lactic Acid Calcium 8.0 L Phosphorus Magnesium Total Bilirubin 0.8 AST 9 L ALT 18 Alkaline Phosphatase 138 H Total Protein 6.1 L Albumin 2.9 L Lipase Beta-Hydroxybutyrate Urine Color Urine Appearance Urine pH Ur Specific Ewing Urine Protein Urine Glucose (UA) Urine Ketones Urine Blood Urine Nitrite Urine Bilirubin Urine Urobilinogen Ur Leukocyte Esterase Urine HCG, Qual 02/20/19 02/20/19 02/20/19 05:06 06:48 06:48 WBC 31.6 H* RBC 3.50 L Hgb 11.3 Hct 33.3 D MCV 95.0 D MCH 32.2 MCHC 33.8 RDW 12.9 Plt Count 416 MPV 8.2 Absolute Neuts (auto) 28.3 H Neutrophils % 89.5 H Neutrophils % (Manual) 86.0 H Band Neutrophils % 5.0 Lymphocytes % 5.2 L D Lymphocytes % (Manual) 7.0 L D Monocytes % 5.1 D Monocytes % (Manual) 2 L D Eosinophils % 0.0 Eosinophils % (Manual) 0.0 Basophils % 0.2 Basophils % (Manual) 0.0 Myelocytes % (Man) 0 D Promyelocytes % (Man) 0 Blast Cells % (Manual) 0 Nucleated RBC % 0 Metamyelocytes 0 Hypochromia 1+ Platelet Estimate Normal Platelet Comment No clumping noted Polychromasia 0 Poikilocytosis 0 Anisocytosis 1+ Microcytosis 0 Macrocytosis 1+ VBG pH POC VBG pCO2 POC VBG pO2 VBG HCO3 VBG O2 Sat (Feliberto) VBG Base Excess Sodium 136 Potassium 3.7 Chloride 105 Carbon Dioxide 19 L Anion Gap 12 BUN 14.2 Creatinine 0.8 Est GFR (CKD-EPI)AfAm 116.28 Est GFR (CKD-EPI)NonAf 100.33 POC Glucometer 164 Random Glucose 159 H Hemoglobin A1c % Lactic Acid Calcium 8.1 L Phosphorus 2.0 L Magnesium 1.5 L Total Bilirubin 0.8 AST 9 L ALT 18 Alkaline Phosphatase 128 H Total Protein 6.0 L Albumin 2.9 L Lipase Beta-Hydroxybutyrate Urine Color Urine Appearance Urine pH Ur Specific Ewing Urine Protein Urine Glucose (UA) Urine Ketones Urine Blood Urine Nitrite Urine Bilirubin Urine Urobilinogen Ur Leukocyte Esterase Urine HCG, Qual 02/20/19 02/20/19 02/20/19 06:48 07:03 08:02 WBC RBC Hgb Hct MCV MCH MCHC RDW Plt Count MPV Absolute Neuts (auto) Neutrophils % Neutrophils % (Manual) Band Neutrophils % Lymphocytes % Lymphocytes % (Manual) Monocytes % Monocytes % (Manual) Eosinophils % Eosinophils % (Manual) Basophils % Basophils % (Manual) Myelocytes % (Man) Promyelocytes % (Man) Blast Cells % (Manual) Nucleated RBC % Metamyelocytes Hypochromia Platelet Estimate Platelet Comment Polychromasia Poikilocytosis Anisocytosis Microcytosis Macrocytosis VBG pH POC VBG pCO2 POC VBG pO2 VBG HCO3 VBG O2 Sat (Feliberto) VBG Base Excess Sodium Potassium Chloride Carbon Dioxide Anion Gap BUN Creatinine Est GFR (CKD-EPI)AfAm Est GFR (CKD-EPI)NonAf POC Glucometer 170 164 Random Glucose Hemoglobin A1c % 8.9 H Lactic Acid Calcium Phosphorus Magnesium Total Bilirubin AST ALT Alkaline Phosphatase Total Protein Albumin Lipase Beta-Hydroxybutyrate Urine Color Urine Appearance Urine pH Ur Specific Ewing Urine Protein Urine Glucose (UA) Urine Ketones Urine Blood Urine Nitrite Urine Bilirubin Urine Urobilinogen Ur Leukocyte Esterase Urine HCG, Qual 02/20/19 02/20/19 09:36 11:09 WBC RBC Hgb Hct MCV MCH MCHC RDW Plt Count MPV Absolute Neuts (auto) Neutrophils % Neutrophils % (Manual) Band Neutrophils % Lymphocytes % Lymphocytes % (Manual) Monocytes % Monocytes % (Manual) Eosinophils % Eosinophils % (Manual) Basophils % Basophils % (Manual) Myelocytes % (Man) Promyelocytes % (Man) Blast Cells % (Manual) Nucleated RBC % Metamyelocytes Hypochromia Platelet Estimate Platelet Comment Polychromasia Poikilocytosis Anisocytosis Microcytosis Macrocytosis VBG pH POC VBG pCO2 POC VBG pO2 VBG HCO3 VBG O2 Sat (Feliberto) VBG Base Excess Sodium Potassium Chloride Carbon Dioxide Anion Gap BUN Creatinine Est GFR (CKD-EPI)AfAm Est GFR (CKD-EPI)NonAf POC Glucometer 162 176 Random Glucose Hemoglobin A1c % Lactic Acid Calcium Phosphorus Magnesium Total Bilirubin AST ALT Alkaline Phosphatase Total Protein Albumin Lipase Beta-Hydroxybutyrate Urine Color Urine Appearance Urine pH Ur Specific Ewing Urine Protein Urine Glucose (UA) Urine Ketones Urine Blood Urine Nitrite Urine Bilirubin Urine Urobilinogen Ur Leukocyte Esterase Urine HCG, Qual Problem List - Problems (1) Dehydration Code(s): E86.0 - DEHYDRATION (2) Leukemoid reaction Code(s): D72.823 - LEUKEMOID REACTION (3) Nausea & vomiting Code(s): R11.2 - NAUSEA WITH VOMITING, UNSPECIFIED Qualifiers: Vomiting type: unspecified Vomiting Intractability: intractable Qualified Code(s): R11.2 - Nausea with vomiting, unspecified (4) Gastroparesis due to DM Code(s): E11.43 - TYPE 2 DIABETES W DIABETIC AUTONOMIC (POLY)NEUROPATHY; K31.84 - GASTROPARESIS (5) DKA (diabetic ketoacidosis) Code(s): E13.10 - OTH DIABETES MELLITUS WITH KETOACIDOSIS WITHOUT COMA Qualifiers: Diabetes mellitus type: type 1 Diabetes mellitus complication detail: without coma Qualified Code(s): E10.10 - Type 1 diabetes mellitus with ketoacidosis without coma Assessment/Plan Wean IV Insulin drip IVF PO as tolerated O2 as needed Replete lytes VTE prophylaxis Floor once off Insulin drip Dr Thomas
--- NOTE | 2019-02-20 12:10 | CON.ID ---
Consult Consult Specialty:: infectious diseases Referred by:: Calli Reason for Consultation:: leukocytosis - History of Present Illness Chief Complaint: weakness - Past Medical History Gastrointestinal: Yes: Constipation, Pancreatitis, Other (Diabetic Gastroparesis ) ...LMP: 03/06/18 Psych: Yes: Anxiety, Depression Endocrine: Yes: Diabetes Mellitus (type 1), Other (dka) - Past Surgical History Past Surgical History: Yes: Upper Endoscopy (spring diabetic gastroparesis) - Alcohol/Substance Use Hx Alcohol Use: No History of Substance Use: reports: Marijuana - Smoking History Smoking history: Never smoked Have you smoked in the past 12 months: Yes Aproximately how many cigarettes per day: 10 - Social History ADL: Independent 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 History of Recent Travel: No Home Medications - Allergies Allergies/Adverse Reactions: Allergies Allergy/AdvReac Type Severity Reaction Status Date / Time No Known Allergies Allergy Verified 12/25/17 09:22 - Home Medications Home Medications: Ambulatory Orders Amitriptyline HCl [Elavil -] 3 tab PO DAILY #0 06/27/15 Acetaminophen [Tylenol] 650 mg PO Q4H PRN #20 tablet 01/17/16 Metoclopramide HCl [Reglan] 10 mg PO Q6H PRN #15 tablet 01/17/16 Ranitidine HCl [Zantac] 150 mg PO BID PRN #20 tablet 01/17/16 Atorvastatin Ca [Lipitor] 40 mg PO HS 12/25/17 Insulin Lispro [Humalog] 100 unit SQ ASDIR 12/25/17 Physical Exam Vital Signs: Vital Signs Temperature 98.3 F 02/20/19 06:07 Pulse Rate 121 H 02/20/19 06:07 Respiratory Rate 25 H 02/20/19 06:07 Blood Pressure 152/96 02/20/19 06:07 O2 Sat by Pulse Oximetry (%) 100 02/19/19 21:56 Labs: CBC, BMP 02/20/19 06:48 02/20/19 06:48
--- NOTE | 2019-02-20 13:01 | PN ---
Physical Exam: SUBJECTIVE: Patient seen and examined at the bedside. OBJECTIVE: Patient is a 28 year old female with a significant past medical history of multiple admissions for DKA (type 1 diabetes), recurrent UTIs, gastroparesis who presents [facility] ED 02/19/19 with shortness of breath, nausea/vomiting and lethargy. 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 She reports that she ran out of her home insulin yesterday, she did not take any insulin today and was going to wait until Wednesday to see her PCP. She feels like she is now in DKA and endorses nausea/vomiting. Fingersticks in the field elevated at 550, in the ED, her glucose as 990, potassium 7.3, lactic acid 5.5, anion gap 33. Period Temp Pulse Resp BP Sys/Plata Pulse Ox Last 24 Hr 98.1 F-98.8 F 116-132 18-30 128-160/70-100 99-100 GENERAL: Awake, alert, and fully oriented, in mild respiratory distress. HEAD: Normal with no signs of trauma. EYES: Pupils equal, round and reactive to light, extraocular movements intact, sclera anicteric, conjunctiva clear. No lid lag. EARS, NOSE, THROAT: Ears normal, nares patent, oropharynx clear without exudates. Moist mucous membranes. NECK: Normal range of motion, supple without lymphadenopathy, JVD, or masses. LUNGS: Breath sounds equal, clear to auscultation bilaterally. tachypnea HEART: tachycardia ABDOMEN: soft, +epigastric pain MUSCULOSKELETAL: Normal range of motion at all joints. No bony deformities or tenderness. No CVA tenderness. UPPER EXTREMITIES: No peripheral edema. LOWER EXTREMITIES: No peripheral edema. NEUROLOGICAL: Normal speech. Normal gait. PSYCHIATRIC: Appropriate mood and affect. SKIN: Warm, dry, normal turgor, no rashes or lesions noted, normal capillary refill. Laboratory Results - last 24 hr 02/19/19 02/19/19 02/19/19 12:37 12:37 12:37 WBC RBC Hgb Hct MCV MCH MCHC RDW Plt Count MPV Absolute Neuts (auto) Neutrophils % Neutrophils % (Manual) 89.0 H Band Neutrophils % 5.0 Lymphocytes % Lymphocytes % (Manual) 3.0 L D Monocytes % Monocytes % (Manual) 1 L Eosinophils % Eosinophils % (Manual) 0.0 D Basophils % Basophils % (Manual) 0.0 Myelocytes % (Man) 2 Promyelocytes % (Man) Blast Cells % (Manual) Nucleated RBC % Metamyelocytes 0 Hypochromia Platelet Estimate Platelet Comment Polychromasia Poikilocytosis Anisocytosis 1+ Microcytosis Macrocytosis 1+ Sodium 120 L Potassium 7.3 H* Chloride 82 L Carbon Dioxide 5 L Anion Gap 33 H BUN 36.4 H Creatinine 1.5 H Est GFR (CKD-EPI)AfAm 54.38 Est GFR (CKD-EPI)NonAf 46.92 POC Glucometer Random Glucose 990 H* Hemoglobin A1c % Lactic Acid Calcium 9.4 Phosphorus 8.2 H Magnesium 2.2 Total Bilirubin 1.0 AST 8 L ALT 18 Alkaline Phosphatase 179 H Total Protein 7.1 Albumin 3.6 Lipase 41 L Beta-Hydroxybutyrate 103.4 H Urine Color Urine Appearance Urine pH Ur Specific [place] Urine Protein Urine Glucose (UA) Urine Ketones Urine Blood Urine Nitrite Urine Bilirubin Urine Urobilinogen Ur Leukocyte Esterase Urine HCG, Qual 02/19/19 02/19/19 02/19/19 12:37 13:53 14:00 WBC RBC Hgb Hct MCV MCH MCHC RDW Plt Count MPV Absolute Neuts (auto) Neutrophils % Neutrophils % (Manual) Band Neutrophils % Lymphocytes % Lymphocytes % (Manual) Monocytes % Monocytes % (Manual) Eosinophils % Eosinophils % (Manual) Basophils % Basophils % (Manual) Myelocytes % (Man) Promyelocytes % (Man) Blast Cells % (Manual) Nucleated RBC % Metamyelocytes Hypochromia Platelet Estimate Platelet Comment Polychromasia Poikilocytosis Anisocytosis Microcytosis Macrocytosis Sodium Potassium Chloride Carbon Dioxide Anion Gap BUN Creatinine Est GFR (CKD-EPI)AfAm Est GFR (CKD-EPI)NonAf POC Glucometer > 600 Random Glucose Hemoglobin A1c % Lactic Acid 5.5 H* Calcium Phosphorus Magnesium Total Bilirubin AST ALT Alkaline Phosphatase Total Protein Albumin Lipase Beta-Hydroxybutyrate Urine Color Yellow Urine Appearance Clear Urine pH 5.0 Ur Specific [place] 1.024 Urine Protein Negative Urine Glucose (UA) 3+ H Urine Ketones 3+ H Urine Blood Negative Urine Nitrite Negative Urine Bilirubin Negative Urine Urobilinogen 0.2 Ur Leukocyte Esterase Negative Urine HCG, Qual 02/19/19 02/19/19 02/19/19 14:00 16:17 17:26 WBC RBC Hgb Hct MCV MCH MCHC RDW Plt Count MPV Absolute Neuts (auto) Neutrophils % Neutrophils % (Manual) Band Neutrophils % Lymphocytes % Lymphocytes % (Manual) Monocytes % Monocytes % (Manual) Eosinophils % Eosinophils % (Manual) Basophils % Basophils % (Manual) Myelocytes % (Man) Promyelocytes % (Man) Blast Cells % (Manual) Nucleated RBC % Metamyelocytes Hypochromia Platelet Estimate Platelet Comment Polychromasia Poikilocytosis Anisocytosis Microcytosis Macrocytosis Sodium Potassium Chloride Carbon Dioxide Anion Gap BUN Creatinine Est GFR (CKD-EPI)AfAm Est GFR (CKD-EPI)NonAf POC Glucometer 591 424 Random Glucose Hemoglobin A1c % Lactic Acid Calcium Phosphorus Magnesium Total Bilirubin AST ALT Alkaline Phosphatase Total Protein Albumin Lipase Beta-Hydroxybutyrate Urine Color Urine Appearance Urine pH Ur Specific [place] Urine Protein Urine Glucose (UA) Urine Ketones Urine Blood Urine Nitrite Urine Bilirubin Urine Urobilinogen Ur Leukocyte Esterase Urine HCG, Qual Negative 02/19/19 02/19/19 02/19/19 18:10 18:10 20:22 WBC RBC Hgb Hct MCV MCH MCHC RDW Plt Count MPV Absolute Neuts (auto) Neutrophils % Neutrophils % (Manual) Band Neutrophils % Lymphocytes % Lymphocytes % (Manual) Monocytes % Monocytes % (Manual) Eosinophils % Eosinophils % (Manual) Basophils % Basophils % (Manual) Myelocytes % (Man) Promyelocytes % (Man) Blast Cells % (Manual) Nucleated RBC % Metamyelocytes Hypochromia Platelet Estimate Platelet Comment Polychromasia Poikilocytosis Anisocytosis Microcytosis Macrocytosis Sodium 132 L Potassium 4.6 Chloride 101 Carbon Dioxide 13 L Anion Gap 17 H BUN 36.1 H Creatinine 1.4 H Est GFR (CKD-EPI)AfAm 59.11 Est GFR (CKD-EPI)NonAf 51.00 POC Glucometer 264 Random Glucose 397 H Hemoglobin A1c % Lactic Acid 2.5 H* Calcium 8.5 Phosphorus Magnesium Total Bilirubin 0.6 AST 8 L ALT 20 Alkaline Phosphatase 152 H Total Protein 6.6 Albumin 3.4 Lipase Beta-Hydroxybutyrate Cancelled Urine Color Urine Appearance Urine pH Ur Specific [place] Urine Protein Urine Glucose (UA) Urine Ketones Urine Blood Urine Nitrite Urine Bilirubin Urine Urobilinogen Ur Leukocyte Esterase Urine HCG, Qual 02/19/19 02/19/19 02/19/19 21:39 21:50 21:50 WBC RBC Hgb Hct MCV MCH MCHC RDW Plt Count MPV Absolute Neuts (auto) Neutrophils % Neutrophils % (Manual) Band Neutrophils % Lymphocytes % Lymphocytes % (Manual) Monocytes % Monocytes % (Manual) Eosinophils % Eosinophils % (Manual) Basophils % Basophils % (Manual) Myelocytes % (Man) Promyelocytes % (Man) Blast Cells % (Manual) Nucleated RBC % Metamyelocytes Hypochromia Platelet Estimate Platelet Comment Polychromasia Poikilocytosis Anisocytosis Microcytosis Macrocytosis Sodium 135 L Potassium 3.9 Chloride 104 Carbon Dioxide 17 L Anion Gap 14 BUN 29.7 H Creatinine 1.0 Est GFR (CKD-EPI)AfAm 88.79 Est GFR (CKD-EPI)NonAf 76.61 POC Glucometer 231 Random Glucose 219 H Hemoglobin A1c % Lactic Acid 1.4 Calcium 8.7 Phosphorus Magnesium Total Bilirubin 0.7 AST 10 L ALT 22 Alkaline Phosphatase 153 H Total Protein 7.0 Albumin 3.5 Lipase Beta-Hydroxybutyrate 35.8 H Urine Color Urine Appearance Urine pH Ur Specific [place] Urine Protein Urine Glucose (UA) Urine Ketones Urine Blood Urine Nitrite Urine Bilirubin Urine Urobilinogen Ur Leukocyte Esterase Urine HCG, Qual 02/19/19 02/19/19 02/20/19 21:50 23:05 00:01 WBC RBC Hgb Hct MCV MCH MCHC RDW Plt Count MPV Absolute Neuts (auto) Neutrophils % Neutrophils % (Manual) Band Neutrophils % Lymphocytes % Lymphocytes % (Manual) Monocytes % Monocytes % (Manual) Eosinophils % Eosinophils % (Manual) Basophils % Basophils % (Manual) Myelocytes % (Man) Promyelocytes % (Man) Blast Cells % (Manual) Nucleated RBC % Metamyelocytes Hypochromia Platelet Estimate Platelet Comment Polychromasia Poikilocytosis Anisocytosis Microcytosis Macrocytosis Sodium Potassium Chloride Carbon Dioxide Anion Gap BUN Creatinine Est GFR (CKD-EPI)AfAm Est GFR (CKD-EPI)NonAf POC Glucometer 208 195 Random Glucose Hemoglobin A1c % Lactic Acid Calcium Phosphorus Magnesium Total Bilirubin AST ALT Alkaline Phosphatase Total Protein Albumin Lipase Beta-Hydroxybutyrate Cancelled Urine Color Urine Appearance Urine pH Ur Specific [place] Urine Protein Urine Glucose (UA) Urine Ketones Urine Blood Urine Nitrite Urine Bilirubin Urine Urobilinogen Ur Leukocyte Esterase Urine HCG, Qual 02/20/19 02/20/19 02/20/19 01:14 02:00 02:09 WBC RBC Hgb Hct MCV MCH MCHC RDW Plt Count MPV Absolute Neuts (auto) Neutrophils % Neutrophils % (Manual) Band Neutrophils % Lymphocytes % Lymphocytes % (Manual) Monocytes % Monocytes % (Manual) Eosinophils % Eosinophils % (Manual) Basophils % Basophils % (Manual) Myelocytes % (Man) Promyelocytes % (Man) Blast Cells % (Manual) Nucleated RBC % Metamyelocytes Hypochromia Platelet Estimate Platelet Comment Polychromasia Poikilocytosis Anisocytosis Microcytosis Macrocytosis Sodium 136 Potassium 3.8 Chloride 106 Carbon Dioxide 20 L Anion Gap 11 BUN 22.2 H Creatinine 0.9 Est GFR (CKD-EPI)AfAm 100.85 Est GFR (CKD-EPI)NonAf 87.01 POC Glucometer 215 191 Random Glucose 199 H Hemoglobin A1c % Lactic Acid Calcium 8.0 L Phosphorus Magnesium Total Bilirubin 0.8 AST 9 L ALT 18 Alkaline Phosphatase 138 H Total Protein 6.1 L Albumin 2.9 L Lipase Beta-Hydroxybutyrate Urine Color Urine Appearance Urine pH Ur Specific [place] Urine Protein Urine Glucose (UA) Urine Ketones Urine Blood Urine Nitrite Urine Bilirubin Urine Urobilinogen Ur Leukocyte Esterase Urine HCG, Qual 02/20/19 02/20/19 02/20/19 04:13 05:06 06:48 WBC RBC Hgb Hct MCV MCH MCHC RDW Plt Count MPV Absolute Neuts (auto) Neutrophils % Neutrophils % (Manual) Band Neutrophils % Lymphocytes % Lymphocytes % (Manual) Monocytes % Monocytes % (Manual) Eosinophils % Eosinophils % (Manual) Basophils % Basophils % (Manual) Myelocytes % (Man) Promyelocytes % (Man) Blast Cells % (Manual) Nucleated RBC % Metamyelocytes Hypochromia Platelet Estimate Platelet Comment Polychromasia Poikilocytosis Anisocytosis Microcytosis Macrocytosis Sodium 136 Potassium 3.7 Chloride 105 Carbon Dioxide 19 L Anion Gap 12 BUN 14.2 Creatinine 0.8 Est GFR (CKD-EPI)AfAm 116.28 Est GFR (CKD-EPI)NonAf 100.33 POC Glucometer 222 164 Random Glucose 159 H Hemoglobin A1c % Lactic Acid Calcium 8.1 L Phosphorus 2.0 L Magnesium 1.5 L Total Bilirubin 0.8 AST 9 L ALT 18 Alkaline Phosphatase 128 H Total Protein 6.0 L Albumin 2.9 L Lipase Beta-Hydroxybutyrate Urine Color Urine Appearance Urine pH Ur Specific [place] Urine Protein Urine Glucose (UA) Urine Ketones Urine Blood Urine Nitrite Urine Bilirubin Urine Urobilinogen Ur Leukocyte Esterase Urine HCG, Qual 02/20/19 02/20/19 02/20/19 06:48 06:48 07:03 WBC 31.6 H* RBC 3.50 L Hgb 11.3 Hct 33.3 D MCV 95.0 D MCH 32.2 MCHC 33.8 RDW 12.9 Plt Count 416 MPV 8.2 Absolute Neuts (auto) 28.3 H Neutrophils % 89.5 H Neutrophils % (Manual) 86.0 H Band Neutrophils % 5.0 Lymphocytes % 5.2 L D Lymphocytes % (Manual) 7.0 L D Monocytes % 5.1 D Monocytes % (Manual) 2 L D Eosinophils % 0.0 Eosinophils % (Manual) 0.0 Basophils % 0.2 Basophils % (Manual) 0.0 Myelocytes % (Man) 0 D Promyelocytes % (Man) 0 Blast Cells % (Manual) 0 Nucleated RBC % 0 Metamyelocytes 0 Hypochromia 1+ Platelet Estimate Normal Platelet Comment No clumping noted Polychromasia 0 Poikilocytosis 0 Anisocytosis 1+ Microcytosis 0 Macrocytosis 1+ Sodium Potassium Chloride Carbon Dioxide Anion Gap BUN Creatinine Est GFR (CKD-EPI)AfAm Est GFR (CKD-EPI)NonAf POC Glucometer 170 Random Glucose Hemoglobin A1c % 8.9 H Lactic Acid Calcium Phosphorus Magnesium Total Bilirubin AST ALT Alkaline Phosphatase Total Protein Albumin Lipase Beta-Hydroxybutyrate Urine Color Urine Appearance Urine pH Ur Specific [place] Urine Protein Urine Glucose (UA) Urine Ketones Urine Blood Urine Nitrite Urine Bilirubin Urine Urobilinogen Ur Leukocyte Esterase Urine HCG, Qual 02/20/19 02/20/19 02/20/19 08:02 09:36 11:09 WBC RBC Hgb Hct MCV MCH MCHC RDW Plt Count MPV Absolute Neuts (auto) Neutrophils % Neutrophils % (Manual) Band Neutrophils % Lymphocytes % Lymphocytes % (Manual) Monocytes % Monocytes % (Manual) Eosinophils % Eosinophils % (Manual) Basophils % Basophils % (Manual) Myelocytes % (Man) Promyelocytes % (Man) Blast Cells % (Manual) Nucleated RBC % Metamyelocytes Hypochromia Platelet Estimate Platelet Comment Polychromasia Poikilocytosis Anisocytosis Microcytosis Macrocytosis Sodium Potassium Chloride Carbon Dioxide Anion Gap BUN Creatinine Est GFR (CKD-EPI)AfAm Est GFR (CKD-EPI)NonAf POC Glucometer 164 162 176 Random Glucose Hemoglobin A1c % Lactic Acid Calcium Phosphorus Magnesium Total Bilirubin AST ALT Alkaline Phosphatase Total Protein Albumin Lipase Beta-Hydroxybutyrate Urine Color Urine Appearance Urine pH Ur Specific [place] Urine Protein Urine Glucose (UA) Urine Ketones Urine Blood Urine Nitrite Urine Bilirubin Urine Urobilinogen Ur Leukocyte Esterase Urine HCG, Qual Active Medications Generic Name Dose Route Start Last Admin Trade Name Freq PRN Reason Stop Dose Admin Acetaminophen 1,000 mg 02/19/19 18:09 02/19/19 23:18 Ofirmev Injection - IVPB 1,000 mg Q6H PRN Administration PAIN LEVEL 4 - 6 Piperacillin Sod/Tazobactam 50 mls @ 100 mls/hr 02/19/19 21:15 02/20/19 09:37 Sod 2.25 gm/ Dextrose IVPB 100 mls/hr Q8H-IV KARLENE Administration Protocol Dextrose/Sodium Chloride 20 meq in 1,000 mls @ 125 mls/hr 02/20/19 04:56 05:13 Dextrose 5%-Normal Saline+20 Meq Kcl - IV Not Given ASDIR KARLENE Insulin Aspart 1 vial 02/20/19 11:00 02/20/19 11:17 Novolog Vial Sliding Scale - SQ 2 units ACHS KARLENE Administration Protocol Pantoprazole Sodium 40 mg 02/20/19 10:00 02/20/19 09:37 Protonix Iv IVPUSH 40 mg BID KARLENE Administration ASSESSMENT/PLAN: Problem List - Problems (1) DKA (diabetic ketoacidosis) Assessment/Plan: DKA secondary to uncontrolled IDDM, likely secondary to acute infection and running out of insulin at home. blood glucose 990>450 on admission insulin drip discontinued today as anion gap and bicarb normalized. given long acting insulin 16 units as well as sliding scale started on diabetic diet, but having some epigastric pain today Code(s): E13.10 - OTH DIABETES MELLITUS WITH KETOACIDOSIS WITHOUT COMA Qualifiers: Diabetes mellitus type: type 1 Diabetes mellitus complication detail: without coma Qualified Code(s): E10.10 - Type 1 diabetes mellitus with ketoacidosis without coma (2) Sepsis Assessment/Plan: WBC 27>31, tachycardia 130s-140s, lactic acid 5.5 on admission (lactic acidosis resolved) blood cultures ordered and pending on zosyn per ID given vanco today for elevated WBC chest xray with no acute pathology Code(s): A41.9 - SEPSIS, UNSPECIFIED ORGANISM (3) UTI (urinary tract infection) Assessment/Plan: on zosyn/vanco pending urine culture UA negative for UTI, but has stong hx of utis along with elevated WBC, lactic acidosis ID consulted Code(s): N39.0 - URINARY TRACT INFECTION, SITE NOT SPECIFIED Qualifiers: Urinary tract infection type: acute cystitis Hematuria presence: without hematuria Qualified Code(s): N30.00 - Acute cystitis without hematuria (4) Abdominal pain Code(s): R10.9 - UNSPECIFIED ABDOMINAL PAIN Qualifiers: Abdominal location: epigastric Qualified Code(s): R10.13 - Epigastric pain (5) Dehydration Code(s): E86.0 - DEHYDRATION (6) Epigastric abdominal pain Code(s): R10.13 - EPIGASTRIC PAIN (7) Nausea & vomiting Code(s): R11.2 - NAUSEA WITH VOMITING, UNSPECIFIED Qualifiers: Vomiting type: unspecified Vomiting Intractability: intractable Qualified Code(s): R11.2 - Nausea with vomiting, unspecified (8) OLEG (acute kidney injury) Code(s): N17.9 - ACUTE KIDNEY FAILURE, UNSPECIFIED Visit type - Emergency Visit Emergency Visit: Yes ED Registration Date: 02/19/19 Care time: The patient presented to the Emergency Department on the above date and was hospitalized for further evaluation of their emergent condition. - New Patient This patient is new to me today: No - Critical Care Critical Care patient: Yes Total Critical Care Time (in minutes): 45 Critical Care Statement: The care of this patient involved high complexity decision making to prevent further life threatening deterioration of the patient 's condition and/or to evaluate & treat vital organ system(s) failure or risk of failure.
--- NOTE | 2019-02-20 14:49 | EKG ---
Test Reason : Blood Pressure : / mmHG Vent. Rate : 136 BPM Atrial Rate : 136 BPM P-R Int : 160 ms QRS Dur : 090 ms QT Int : 300 ms P-R-T Axes : 084 010 028 degrees QTc Int : 451 ms SINUS TACHYCARDIA OTHERWISE NORMAL ECG WHEN COMPARED WITH ECG OF 25-DEC-2017 09:10, NO SIGNIFICANT CHANGE WAS FOUND Confirmed by BILL MONTILLA MD ([id number]) on 02/20/2019 2:49:32 PM Referred By: Confirmed By:BILL MONTILLA MD
[2019-02-20] MEDS ORDERED: METOCLOPRAMIDE HCL INJECTION 10 MG/2 ML VIAL IVPUSH ONE (15:03)
[2019-02-20 17:58] LABS: BLOOD UREA NITROGEN 7.8 mg/dL (7-18); CALCIUM 8.3 mg/dL (8.5-10.1); CREATININE 0.8 mg/dL (0.55-1.3); POTASSIUM 3.8 mmol/L (3.5-5.1)
[2019-02-20] MEDS: D5-NS + 20 MEQ KCL - 20 MEQ/1,000 ML INFUS.BAG IV SCH (21:44)
[2019-02-20 22:16] VITALS: TEMP 98.2
[2019-02-20 22:17] LABS: BLOOD UREA NITROGEN 8.2 mg/dL (7-18); CALCIUM 8.3 mg/dL (8.5-10.1); CREATININE 0.8 mg/dL (0.55-1.3); POTASSIUM 3.9 mmol/L (3.5-5.1)
[2019-02-21 00:47] LABS: BLOOD UREA NITROGEN 6.4 mg/dL (7-18); CALCIUM 8.6 mg/dL (8.5-10.1); POTASSIUM 3.7 mmol/L (3.5-5.1)
[2019-02-21] MEDS ORDERED: PIPERACILLIN/TAZOBACTAM 2.25 GM VIAL IVPB ONE ×2 (00:52→09:16)
[2019-02-21] MEDS ORDERED: DEXTROSE 5%-WATER - 50 ML IVPB ONE ×2 (00:52→09:16)
[2019-02-21] MEDS: PIPERACILLIN/TAZOB 2.25 GM 2.25 GM in DEXTROSE 5%-WATER - 50 ML IVPB SCH ×3 (01:25→09:39)
[2019-02-21] MEDS: D5-NS + 20 MEQ KCL - 20 MEQ/1,000 ML INFUS.BAG IV SCH (01:26)
[2019-02-21] MEDS: INSULIN SLIDING SCALE (NOVOLOG) 1 VIAL SQ SCH (06:16)
[2019-02-21 07:28] LABS: BASO % 0.2 % (0-2.0); HEMATOCRIT 34.5 % (32.4-45.2); HEMOGLOBIN 11.8 GM/dL (10.7-15.3); LYMPH % 9.5 % (8-40); MCH 32.6 pg (25.7-33.7); MCHC 34.2 g/dl (32.0-36.0); MEAN CELL VOLUME 95.4 fl (80-96); MEAN PLT VOLUME 7.8 fl (7.5-11.1); NEUT % 87.3 % (42.8-82.8); PLATELET COUNT 374 K/MM3 (134-434); RBC 3.62 M/mm3 (3.60-5.2); RDW 12.9 % (11.6-15.6); WHITE BLOOD COUNT 16.8 K/mm3 (4.0-10.0)
[2019-02-21] MEDS ORDERED: INSULIN (LEVEMIR) 100 UNITS/ML UNITS SQ ONE (07:30)
[2019-02-21 07:59] LABS: BILIRUBIN,TOTAL 0.6 mg/dL (0.2-1); BLOOD UREA NITROGEN 7.4 mg/dL (7-18); CALCIUM 8.7 mg/dL (8.5-10.1); CREATININE 0.8 mg/dL (0.55-1.3); MAGNESIUM 1.9 mg/dL (1.8-2.4); PHOSPHOROUS 1.7 mg/dL (2.5-4.9); POTASSIUM 3.6 mmol/L (3.5-5.1); TOT PROT 6.3 g/dl (6.4-8.2)
[2019-02-21 08:06] VITALS: BP 147/109; PULSE 109
[2019-02-21] MEDS ORDERED: NAPH,MB-DB/K PH,MBDB POWDER PACKET PO ONE ×2 (08:10→08:26)
[2019-02-21] MEDS ORDERED: MAGNESIUM OXIDE 400 MG TABLET (FP) PO ONE (08:27)
--- NOTE | 2019-02-21 08:50 | PN ---
Progress Note, Physician History of Present Illness: Patient is a 28 year old female with a significant past medical history of multiple admissions for DKA (type 1 diabetes), recurrent UTIs, gastroparesis who presents tot ED 02/19/19 with shortness of breath, nausea/vomiting and lethargy. 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 She reports that she ran out of her home insulin yesterday, she did not take any insulin today and was going to wait until Wednesday to see her PCP. She feels like she is now in DKA and endorses nausea/vomiting. Fingersticks in the field elevated at 550, in the ED, her glucose as 990, potassium 7.3, lactic acid 5.5, anion gap 33. - Current Medication List Current Medications: Active Medications Acetaminophen (Ofirmev Injection -) 1,000 mg IVPB Q6H PRN PRN Reason: PAIN LEVEL 4 - 6 Last Admin: 02/19/19 23:18 Dose: 1,000 mg Piperacillin Sod/Tazobactam (Sod 2.25 gm/ Dextrose) 50 mls @ 100 mls/hr IVPB Q8H-IV KARLENE; Protocol Last Admin: 02/21/19 01:25 Dose: 100 mls/hr Dextrose/Sodium Chloride (Dextrose 5%-Normal Saline+20 Meq Kcl -) 20 meq in 1, 000 mls @ 83 mls/hr IV ASDIR KARLENE Last Admin: 02/21/19 01:26 Dose: 83 mls/hr Insulin Aspart (Novolog Vial Sliding Scale -) 1 vial SQ ACHS KARLENE; Protocol Last Admin: 02/21/19 06:16 Dose: 10 units Pantoprazole Sodium (Protonix Iv) 40 mg IVPUSH BID KARLENE Last Admin: 02/20/19 21:42 Dose: 40 mg - Objective Vital Signs: Vital Signs Temperature 98.2 F 02/21/19 06:00 Pulse Rate 109 H 02/21/19 08:00 Respiratory Rate 20 02/21/19 08:00 Blood Pressure 147/109 H 02/21/19 08:00 O2 Sat by Pulse Oximetry (%) 100 02/20/19 22:01 Labs: CBC, BMP 02/21/19 06:15 02/21/19 06:15 Problem List - Problems (1) Prophylactic measure Code(s): Z29.9 - ENCOUNTER FOR PROPHYLACTIC MEASURES, UNSPECIFIED (2) OLEG (acute kidney injury) Code(s): N17.9 - ACUTE KIDNEY FAILURE, UNSPECIFIED (3) DKA (diabetic ketoacidoses) Assessment/Plan: DKA secondary to uncontrolled IDDM, likely secondary to acute infection and running out of insulin at home. blood glucose 990>450 on admission insulin drip discontinued today as anion gap and bicarb normalized. given long acting insulin 16 units as well as sliding scale started on diabetic diet, but having some epigastric pain today Code(s): E11.10 - TYPE 2 DIABETES MELLITUS WITH KETOACIDOSIS WITHOUT COMA Qualifiers: Diabetes mellitus type: type 1 Diabetes mellitus complication detail: without coma Qualified Code(s): E10.10 - Type 1 diabetes mellitus with ketoacidosis without coma (4) Gastroparesis Code(s): K31.84 - GASTROPARESIS (5) Hypertension Code(s): I10 - ESSENTIAL (PRIMARY) HYPERTENSION (6) Nausea & vomiting Code(s): R11.2 - NAUSEA WITH VOMITING, UNSPECIFIED Qualifiers: Vomiting type: unspecified Vomiting Intractability: intractable Qualified Code(s): R11.2 - Nausea with vomiting, unspecified (7) Gastroparesis due to DM Code(s): E11.43 - TYPE 2 DIABETES W DIABETIC AUTONOMIC (POLY)NEUROPATHY; K31.84 - GASTROPARESIS (8) UTI (urinary tract infection) Assessment/Plan: on zosyn/vanco pending urine culture UA negative for UTI, but has stong hx of utis along with elevated WBC, lactic acidosis ID consulted Code(s): N39.0 - URINARY TRACT INFECTION, SITE NOT SPECIFIED Qualifiers: Urinary tract infection type: acute cystitis Hematuria presence: without hematuria Qualified Code(s): N30.00 - Acute cystitis without hematuria (9) Sepsis Assessment/Plan: WBC 27>31, tachycardia 130s-140s, lactic acid 5.5 on admission (lactic acidosis resolved) blood cultures ordered and pending on zosyn per ID given vanco today for elevated WBC chest xray with no acute pathology Code(s): A41.9 - SEPSIS, UNSPECIFIED ORGANISM
[2019-02-21] MEDS: PANTOPRAZOLE SODIUM 40 MG VIAL IVPUSH SCH ×2 (09:35→09:42)
--- NOTE | 2019-02-21 11:26 | DS ---
Physical Exam: SUBJECTIVE: Patient seen and examined Patient is a 28 year old female with a significant past medical history of multiple admissions for DKA (type 1 diabetes), recurrent UTIs, gastroparesis who presents to the ED 02/19/19 with shortness of breath, nausea/vomiting and lethargy. Pt was treated for DKA requiring ICU level of care. Pt requesting to sign out AMA. OBJECTIVE: Vital Signs Period Temp Pulse Resp BP Sys/Plata Pulse Ox Last 24 Hr 98 F-98.6 F 106-120 20-24 118-168/71-111 100-100 PHYSICAL EXAM GENERAL: Awake, alert, and fully oriented, in mild respiratory distress. HEAD: Normal with no signs of trauma. EYES: Pupils equal, round and reactive to light, extraocular movements intact, sclera anicteric, conjunctiva clear. No lid lag. EARS, NOSE, THROAT: Ears normal, nares patent, oropharynx clear without exudates. Moist mucous membranes. NECK: Normal range of motion, supple without lymphadenopathy, JVD, or masses. LUNGS: Breath sounds equal, clear to auscultation bilaterally. tachypnea HEART: tachycardia ABDOMEN: soft, +epigastric pain MUSCULOSKELETAL: Normal range of motion at all joints. No bony deformities or tenderness. No CVA tenderness. UPPER EXTREMITIES: No peripheral edema. LOWER EXTREMITIES: No peripheral edema. NEUROLOGICAL: Normal speech. Normal gait. PSYCHIATRIC: Appropriate mood and affect. SKIN: Warm, dry, normal turgor, no rashes or lesions noted, normal capillary refill. LABS Laboratory Results - last 24 hr 02/20/19 02/20/19 02/20/19 15:48 16:30 21:34 WBC RBC Hgb Hct MCV MCH MCHC RDW Plt Count MPV Absolute Neuts (auto) Neutrophils % Lymphocytes % Monocytes % Eosinophils % Basophils % Nucleated RBC % Sodium 138 135 L Potassium 3.8 3.9 Chloride 105 105 Carbon Dioxide 19 L 20 L Anion Gap 14 11 BUN 7.8 8.2 Creatinine 0.8 0.8 Est GFR (CKD-EPI)AfAm 116.28 116.28 Est GFR (CKD-EPI)NonAf 100.33 100.33 POC Glucometer 209 Random Glucose 221 H 308 H Calcium 8.3 L 8.3 L Phosphorus Magnesium Total Bilirubin AST ALT Alkaline Phosphatase Total Protein Albumin 02/20/19 02/20/19 02/21/19 21:49 23:30 05:20 WBC RBC Hgb Hct MCV MCH MCHC RDW Plt Count MPV Absolute Neuts (auto) Neutrophils % Lymphocytes % Monocytes % Eosinophils % Basophils % Nucleated RBC % Sodium 139 Potassium 3.7 Chloride 107 Carbon Dioxide 23 Anion Gap 10 BUN 6.4 L Creatinine 1.0 Est GFR (CKD-EPI)AfAm 88.79 Est GFR (CKD-EPI)NonAf 76.61 POC Glucometer 328 415 Random Glucose 238 H Calcium 8.6 Phosphorus Magnesium Total Bilirubin AST ALT Alkaline Phosphatase Total Protein Albumin 02/21/19 02/21/19 06:15 06:15 WBC 16.8 H RBC 3.62 Hgb 11.8 Hct 34.5 MCV 95.4 MCH 32.6 MCHC 34.2 RDW 12.9 Plt Count 374 MPV 7.8 Absolute Neuts (auto) 14.7 H Neutrophils % 87.3 H Lymphocytes % 9.5 D Monocytes % 3.0 L Eosinophils % 0.0 Basophils % 0.2 Nucleated RBC % 0 Sodium 134 L Potassium 3.6 Chloride 101 Carbon Dioxide 20 L Anion Gap 14 BUN 7.4 Creatinine 0.8 Est GFR (CKD-EPI)AfAm 116.28 Est GFR (CKD-EPI)NonAf 100.33 POC Glucometer Random Glucose 303 H Calcium 8.7 Phosphorus 1.7 L Magnesium 1.9 Total Bilirubin 0.6 AST 8 L ALT 17 Alkaline Phosphatase 137 H Total Protein 6.3 L Albumin 3.0 L HOSPITAL COURSE: Date of Admission:02/19/19 Date of Discharge: 02/21/19 Problem List - Problems (1) DKA (diabetic ketoacidosis) BGM remain high. Pt states that she will resume insulin pump upon discharge to home and will return back to ED of sysmptoms return or worsen Assessment/Plan: Code(s): E13.10 - OTH DIABETES MELLITUS WITH KETOACIDOSIS WITHOUT COMA Qualifiers: Diabetes mellitus type: type 1 Diabetes mellitus complication detail: without coma Qualified Code(s): E10.10 - Type 1 diabetes mellitus with ketoacidosis without coma (2) Sepsis Assessment/Plan: Code(s): A41.9 - SEPSIS, UNSPECIFIED ORGANISM (3) UTI (urinary tract infection) Assessment/Plan: Code(s): N39.0 - URINARY TRACT INFECTION, SITE NOT SPECIFIED Qualifiers: Urinary tract infection type: acute cystitis Hematuria presence: without hematuria Qualified Code(s): N30.00 - Acute cystitis without hematuria (4) Abdominal pain Code(s): R10.9 - UNSPECIFIED ABDOMINAL PAIN Qualifiers: Abdominal location: epigastric Qualified Code(s): R10.13 - Epigastric pain (5) Dehydration Code(s): E86.0 - DEHYDRATION (6) Epigastric abdominal pain Code(s): R10.13 - EPIGASTRIC PAIN (7) Nausea & vomiting Code(s): R11.2 - NAUSEA WITH VOMITING, UNSPECIFIED Qualifiers: Vomiting type: unspecified Vomiting Intractability: intractable Qualified Code(s): R11.2 - Nausea with vomiting, unspecified (8) OLEG (acute kidney injury) Code(s): N17.9 - ACUTE KIDNEY FAILURE, UNSPECIFIED Minutes to complete discharge: 30 Discharge Summary Problems reviewed: Yes Reason For Visit: DIABETIC KETOACIDOSIS Hospital Course: SIGNED OUT AMA. HOSPITAL COURSE: Date of Admission:02/19/19 Date of Discharge: 02/21/19 Problem List - Problems (1) DKA (diabetic ketoacidosis) BGM remain high. Pt states that she will resume insulin pump upon discharge to home and will return back to ED of sysmptoms return or worsen Assessment/Plan: Code(s): E13.10 - OTH DIABETES MELLITUS WITH KETOACIDOSIS WITHOUT COMA Qualifiers: Diabetes mellitus type: type 1 Diabetes mellitus complication detail: without coma Qualified Code(s): E10.10 - Type 1 diabetes mellitus with ketoacidosis without coma (2) Sepsis Assessment/Plan: Code(s): A41.9 - SEPSIS, UNSPECIFIED ORGANISM (3) UTI (urinary tract infection) Assessment/Plan: Code(s): N39.0 - URINARY TRACT INFECTION, SITE NOT SPECIFIED Qualifiers: Urinary tract infection type: acute cystitis Hematuria presence: without hematuria Qualified Code(s): N30.00 - Acute cystitis without hematuria (4) Abdominal pain Code(s): R10.9 - UNSPECIFIED ABDOMINAL PAIN Qualifiers: Abdominal location: epigastric Qualified Code(s): R10.13 - Epigastric pain (5) Dehydration Code(s): E86.0 - DEHYDRATION (6) Epigastric abdominal pain Code(s): R10.13 - EPIGASTRIC PAIN (7) Nausea & vomiting Code(s): R11.2 - NAUSEA WITH VOMITING, UNSPECIFIED Qualifiers: Vomiting type: unspecified Vomiting Intractability: intractable Qualified Code(s): R11.2 - Nausea with vomiting, unspecified (8) OLEG (acute kidney injury) Code(s): N17.9 - ACUTE KIDNEY FAILURE, UNSPECIFIED Condition: Improved - Instructions Diet, Activity, Other Instructions: Patient requested to sign out AMA..Stressed importance of remaining in patient to monitor glymcemic levels. Advised that leaving could result in return of DKA , coma, stroke, and still insisting to leave. Pt stated that she has insulin now at [facility] for her pump and will reurn if any of her symptoms, n/v, lethargy,somolence, uncontrolled BGM. Disposition: AGAINST MEDICAL ADVICE - Home Medications Comprehensive Discharge Medication List: Ambulatory Orders Amitriptyline HCl [Elavil -] 3 tab PO DAILY #0 06/27/15 Acetaminophen [Tylenol] 650 mg PO Q4H PRN #20 tablet 01/17/16 Metoclopramide HCl [Reglan] 10 mg PO Q6H PRN #15 tablet 01/17/16 Ranitidine HCl [Zantac] 150 mg PO BID PRN #20 tablet 01/17/16 Atorvastatin Ca [Lipitor] 40 mg PO HS 12/25/17 Insulin Lispro [Humalog] 100 unit SQ ASDIR 12/25/17 Insulin Sliding Scale [Novolog Vial Sliding Scale -] 1 vial SQ ACHS units 02/21 Prescription Drug Monitoring Program (I-STOP) results: I-STOP not reviewed Problem List - Problems (1) Prophylactic measure Code(s): Z29.9 - ENCOUNTER FOR PROPHYLACTIC MEASURES, UNSPECIFIED (2) OLEG (acute kidney injury) Code(s): N17.9 - ACUTE KIDNEY FAILURE, UNSPECIFIED (3) DKA (diabetic ketoacidoses) Code(s): E11.10 - TYPE 2 DIABETES MELLITUS WITH KETOACIDOSIS WITHOUT COMA Qualifiers: Diabetes mellitus type: type 1 Diabetes mellitus complication detail: without coma Qualified Code(s): E10.10 - Type 1 diabetes mellitus with ketoacidosis without coma (4) Gastroparesis Code(s): K31.84 - GASTROPARESIS (5) Hypertension Code(s): I10 - ESSENTIAL (PRIMARY) HYPERTENSION (6) Nausea & vomiting Code(s): R11.2 - NAUSEA WITH VOMITING, UNSPECIFIED Qualifiers: Vomiting type: unspecified Vomiting Intractability: intractable Qualified Code(s): R11.2 - Nausea with vomiting, unspecified (7) Gastroparesis due to DM Code(s): E11.43 - TYPE 2 DIABETES W DIABETIC AUTONOMIC (POLY)NEUROPATHY; K31.84 - GASTROPARESIS (8) UTI (urinary tract infection) Code(s): N39.0 - URINARY TRACT INFECTION, SITE NOT SPECIFIED Qualifiers: Urinary tract infection type: acute cystitis Hematuria presence: without hematuria Qualified Code(s): N30.00 - Acute cystitis without hematuria (9) Sepsis Code(s): A41.9 - SEPSIS, UNSPECIFIED ORGANISM This patient is new to me today: Yes Date on this admission: 02/21/19 Emergency Visit: Yes ED Registration Date: 02/19/19 Care time: The patient presented to the Emergency Department on the above date and was hospitalized for further evaluation of their emergent condition. Critical Care patient: Yes Total Critical Care Time (in minutes): 30 Critical Care Statement: The care of this patient involved high complexity decision making to prevent further life threatening deterioration of the patient 's condition and/or to evaluate & treat vital organ system(s) failure or risk of failure. - Discharge Referral Referred to [facility] No
== END 2019-02-21 10:24 | disposition left against medical advice (07) | DRG 420 ==
LOC: JER 12:20 → JERBED 13:16 → JICU 21:26
PROVIDERS: ATTEND Nurse Practitioner Acute Care
DX: E10.10 Type 1 diabetes mellitus with ketoacidosis without coma (principal); E87.1 Hypo-osmolality and hyponatremia; N39.0 Urinary tract infection, site not specified; E86.0 Dehydration; R10.13 Epigastric pain; R11.2 Nausea with vomiting, unspecified; A41.9 Sepsis, unspecified organism; N17.9 Acute kidney failure, unspecified; D72.829 Elevated white blood cell count, unspecified; R00.0 Tachycardia, unspecified
CPT/HCPCS: 36415; 71045-TC-FY; 76700-TC; 80048; 80053; 81003; 82010; 82803; 82962; 83036; 83605; 83690; 83735; 84100; 84703; 85025; 87040; 87086; 93005; 93010; 99284-25; J0131; J7030

== ENCOUNTER 2019-05-13 10:30 | Inpatient (IN) | payer OTHER ==
--- NOTE | 2019-05-13 10:49 | PDOC ---
History of Present Illness - General Chief Complaint: Blood Sugar Problem Stated Complaint: BLOOD SUGAR PROBLEM History Source: Patient Exam Limitations: No Limitations - History of Present Illness Initial Comments: 05/13/19 10:50 29 year old female with a significant past medical history of multiple adm issions for DKA (type 1 diabetes), recurrent UTIs, gastroparesis who presents to the ED today with N/V and rapid respiration rate. Per the patient, her insulin pump may have stopped working last night as she noticed it was off. She began having multiple vomiting, NBNB, episodes this morning at approximately 7 am. States she has vomited 10+ times. The patient states her BG was in the 400s this morning. Patient denies the following: fevers, chills, headaches, ears/nose/throat pain, abdominal pain, chest pain, back pain, dysuria, diarrhea, and leg pain/swelling. Allergies: NKDA Past History - Past Medical History Allergies/Adverse Reactions: Allergies Allergy/AdvReac Type Severity Reaction Status Date / Time No Known Allergies Allergy Verified 05/13/19 10:38 Home Medications: Ambulatory Orders Amitriptyline HCl [Elavil -] 75 mg PO HS 05/13/19 Famotidine 20 mg PO BID 05/13/19 Insulin (Novolog) [Novolog Vial] 100 units SQ ASDIR 05/13/19 Medroxyprogesterone Acetate [Depo-Provera] 150 mg IM MONTHLY 05/13/19 Metoclopramide HCl [Reglan] 5 mg PO BID 05/13/19 Anemia: No Asthma: No Cancer: No Cardiac Disorders: No CVA: No COPD: No CHF: No Dementia: No Diabetes: Yes GI Disorders: Yes (gastroparesis) Disorders: No HTN: No Hypercholesterolemia: No Liver Disease: No Psychiatric Problems: Yes (ANXIETY DEPRESSION) Seizures: No Thyroid Disease: No - Surgical History Abdominal Surgery: No Appendectomy: No Cardiac Surgery: No Cholecystectomy: No Lung Surgery: No Neurologic Surgery: No Orthopedic Surgery: No - Immunization History Immunization Up to Date: Yes - Psycho Social/Smoking Cessation Hx Smoking Status: No Smoking History: Current every day smoker Have you smoked in the past 12 months: Yes Number of Cigarettes Smoked Daily: 20 Information on smoking cessation initiated: No 'Breaking Loose' booklet given: 01/14/17 Hx Alcohol Use: No Drug/Substance Use Hx: No Substance Use Type: None Hx Substance Use Treatment: No Review of Systems - Review of Systems Able to Perform ROS?: Yes Is the patient limited Moldovan proficient: No Constitutional: Yes: Weakness. No: Chills, Diaphoresis, Fever HEENTM: No: Eye Pain, Ear Pain, Nose Pain, Throat Pain, Mouth Pain Respiratory: No: Cough, Shortness of Breath, Hemoptysis Cardiac (ROS): No: Chest Pain, Lightheadedness, Palpitations, Chest Tightness ABD/GI: Yes: Nausea, Poor Appetite, Poor Fluid Intake, Vomiting. No: Constipated, Diarrhea, Rectal Bleeding, Tarry Stools : No: Burning, Dysuria, Hematuria Musculoskeletal: No: Back Pain, Joint Pain, Neck Pain Integumentary: No: Bruising, Erythema, Rash Neurological: No: Headache, Numbness, Tingling Psychiatric: No: Change in Appetite Endocrine: Yes: Increased Thirst. No: Unexplained Weight Loss Hematologic/Lymphatic: No: Anemia *Physical Exam - Vital Signs Last Vital Signs Temp Pulse Resp BP Pulse Ox 97.5 F L 140 H 34 H 130/84 99 05/13/19 10:38 05/13/19 10:38 05/13/19 10:38 05/13/19 10:38 05/13/19 10:38 - Physical Exam General Appearance: Yes: Nourished, Appropriately Dressed, Mild Distress, Other (kusmaul breathing. fruity odor from breath) HEENT: positive: EOMI, KEYSHA, Normal Voice, Symmetrical, Hearing Grossly Normal. negative: Pharynx Normal (dry mucuous membranes), Pale Conjunctivae, Scleral Icterus (R), Scleral Icterus (L), Muffled/Hoarse voice, Pharyngeal Erythema, Tonsillar Exudate, Tonsillar Erythema, Nasal Congestion, Rhinorrhea, Sinus Tenderness, Excessive drooling Neck: positive: Trachea midline, Supple. negative: Tender, Lymphadenopathy (R), Lymphadenopathy (L), Tender lateral, Tender midline Respiratory/Chest: positive: Lungs Clear, Normal Breath Sounds, Rapid RR. negative: Chest Tender, Rhonchi, Stridor, Wheezing Cardiovascular: positive: Regular Rhythm, S1, S2, Tachycardia. negative: Systol ic Murmur Gastrointestinal/Abdominal: positive: Normal Bowel Sounds, Flat, Soft. negative: Tender, Distended, Guarding, Rebound Lymphatic: negative: Adenopathy Musculoskeletal: positive: Normal Inspection. negative: CVA Tenderness, Vertebral Tenderness Extremity: positive: Normal Capillary Refill, Normal Inspection, Normal Range of Motion. negative: Tender Integumentary: positive: Normal Color, Dry, Warm Neurologic: positive: infant room teacher II-XII NML intact, Fully Oriented, Alert, Normal Mood/Affect ED Treatment Course - LABORATORY CBC & Chemistry Diagram: 05/15/19 06:00 05/15/19 06:00 Medical Decision Making - Medical Decision Making 29 year old female with a significant past medical history of multiple admissions for DKA (type 1 diabetes), recurrent UTIs, gastroparesis who presents to the ED today with N/V and rapid respiration rate. Initial vitals: Initial Vital Signs Temp Pulse Resp BP Pulse Ox 97.5 F L 140 H 34 H 130/84 99 05/13/19 10:38 05/13/19 10:38 05/13/19 10:38 05/13/19 10:38 05/13/19 10:38 Work up: patient presents to the emergency department with increased respiratory rate, tachycardia, and elevated blood glucose in the setting of insulin pump malfunction. concerns for DKA. sent labs, cxr, and EKG. Laboratory Tests 05/13/19 05/13/19 05/13/19 11:00 11:00 11:00 WBC 37.4 H* RBC 4.04 Hgb 13.0 Hct 40.8 D MCV 101.1 H MCH 32.2 MCHC 31.8 L RDW 13.5 Plt Count 547 H D MPV 8.1 Absolute Neuts (auto) 35.3 H Neutrophils % 94.4 H Neutrophils % (Manual) 94.8 H Band Neutrophils % 1.0 Lymphocytes % 3.5 L D Lymphocytes % (Manual) 2.1 L D Monocytes % 1.9 L Monocytes % (Manual) 2 L Eosinophils % 0.0 Eosinophils % (Manual) 0.0 Basophils % 0.2 Basophils % (Manual) 0.0 Myelocytes % (Man) 0 Promyelocytes % (Man) 0 Blast Cells % (Manual) 0 Nucleated RBC % 0 Metamyelocytes 0 Hypochromia 0 Platelet Estimate Normal Polychromasia 1+ Poikilocytosis 0 Anisocytosis 1+ Microcytosis 0 Macrocytosis 1+ [place] Cells 1+ Anticoagulation Therapy Puncture Site ABG pH ABG pCO2 at Pt Temp ABG pO2 at Pt Temp ABG HCO3 ABG O2 Sat (Measured) ABG O2 Content ABG Base Excess Jase Test Carboxyhemoglobin Methemoglobin Patient On Oxygen O2 Delivery Device Oxygen Flow Rate Vent Mode Vent Rate Mechanical Rate Pressure Support Vent Sodium 134 L Potassium 4.8 Chloride 94 L Carbon Dioxide 7 L Anion Gap 34 H BUN 20.3 H Creatinine 1.4 H Est GFR (CKD-EPI)AfAm 58.70 Est GFR (CKD-EPI)NonAf 50.65 POC Glucometer Random Glucose 542 H* Lactic Acid Calcium 8.6 Magnesium 1.6 L Total Bilirubin 0.6 AST 14 L ALT 18 Alkaline Phosphatase 156 H Creatine Kinase 54 Troponin I < 0.02 Total Protein 6.9 Albumin 3.1 L Beta-Hydroxybutyrate 139.7 H Serum , Qual Negative Urine Color Urine Appearance Urine pH Ur Specific [place] Urine Protein Urine Glucose (UA) Urine Ketones Urine Blood Urine Nitrite Urine Bilirubin Urine Urobilinogen Ur Leukocyte Esterase 05/13/19 05/13/19 05/13/19 11:00 11:00 11:02 WBC RBC Hgb Hct MCV MCH MCHC RDW Plt Count MPV Absolute Neuts (auto) Neutrophils % Neutrophils % (Manual) Band Neutrophils % Lymphocytes % Lymphocytes % (Manual) Monocytes % Monocytes % (Manual) Eosinophils % Eosinophils % (Manual) Basophils % Basophils % (Manual) Myelocytes % (Man) Promyelocytes % (Man) Blast Cells % (Manual) Nucleated RBC % Metamyelocytes Hypochromia Platelet Estimate Polychromasia Poikilocytosis Anisocytosis Microcytosis Macrocytosis Elly Cells Anticoagulation Therapy No Result Required. Puncture Site No Result Required. ABG pH 7.28 L ABG pCO2 at Pt Temp 14.0 L* ABG pO2 at Pt Temp 125 H ABG HCO3 6.4 L ABG O2 Sat (Measured) 97.4 ABG O2 Content 22.2 ABG Base Excess -18.8 L Jase Test No Result Required. Carboxyhemoglobin 1.2 Methemoglobin 1.3 Patient On Oxygen No Result Required. O2 Delivery Device No Result Required. Oxygen Flow Rate No Result Required. Vent Mode No Result Required. Vent Rate No Result Required. Mechanical Rate No Result Required. Pressure Support Vent No Result Required. Sodium Potassium Chloride Carbon Dioxide Anion Gap BUN Creatinine Est GFR (CKD-EPI)AfAm Est GFR (CKD-EPI)NonAf POC Glucometer 490 Random Glucose Lactic Acid 1.9 Calcium Magnesium Total Bilirubin AST ALT Alkaline Phosphatase Creatine Kinase Troponin I Total Protein Albumin Beta-Hydroxybutyrate Serum , Qual Urine Color Urine Appearance Urine pH Ur Specific [place] Urine Protein Urine Glucose (UA) Urine Ketones Urine Blood Urine Nitrite Urine Bilirubin Urine Urobilinogen Ur Leukocyte Esterase 05/13/19 05/13/19 12:47 13:00 WBC RBC Hgb Hct MCV MCH MCHC RDW Plt Count MPV Absolute Neuts (auto) Neutrophils % Neutrophils % (Manual) Band Neutrophils % Lymphocytes % Lymphocytes % (Manual) Monocytes % Monocytes % (Manual) Eosinophils % Eosinophils % (Manual) Basophils % Basophils % (Manual) Myelocytes % (Man) Promyelocytes % (Man) Blast Cells % (Manual) Nucleated RBC % Metamyelocytes Hypochromia Platelet Estimate Polychromasia Poikilocytosis Anisocytosis Microcytosis Macrocytosis Elly Cells Anticoagulation Therapy Puncture Site ABG pH ABG pCO2 at Pt Temp ABG pO2 at Pt Temp ABG HCO3 ABG O2 Sat (Measured) ABG O2 Content ABG Base Excess Jase Test Carboxyhemoglobin Methemoglobin Patient On Oxygen O2 Delivery Device Oxygen Flow Rate Vent Mode Vent Rate Mechanical Rate Pressure Support Vent Sodium Potassium Chloride Carbon Dioxide Anion Gap BUN Creatinine Est GFR (CKD-EPI)AfAm Est GFR (CKD-EPI)NonAf POC Glucometer 494 Random Glucose Lactic Acid Calcium Magnesium Total Bilirubin AST ALT Alkaline Phosphatase Creatine Kinase Troponin I Total Protein Albumin Beta-Hydroxybutyrate Serum , Qual Urine Color Yellow Urine Appearance Cloudy Urine pH 5.0 Ur Specific [place] 1.026 Urine Protein Trace Urine Glucose (UA) 3+ H Urine Ketones 4+ H Urine Blood Negative Urine Nitrite Negative Urine Bilirubin Negative Urine Urobilinogen 0.2 Ur Leukocyte Esterase Negative Prior to labs, 2 L of NS was given for fluid resuscitation UA negative for UTI Patient has leukocytosis noted AG noted to be severely elevated with low bicarb with positive beta hydroxybutyrate with acidosis on ABG. Patient is in DKA Patient given another liter of NS with 20 meq of potassium. started on insulin drip with 6 unit push. Patient was discussed with ICU for admission for DKA. Patient was accepted. EKG: sinus tachycardia with 137 ventricular rate with no ST elevations or depressions. CXR is negative for acute process. Discharge - Discharge Information Problems reviewed: Yes Clinical Impression/Diagnosis: DKA (diabetic ketoacidoses) Qualifiers: Diabetes mellitus type: type 1 Condition: Guarded - Follow up/Referral - Patient Discharge Instructions - Post Discharge Activity
[2019-05-13] MEDS ORDERED: SODIUM CHLORIDE 1,000 ML IV STA ×3 (10:56→12:46)
[2019-05-13] MEDS ORDERED: ONDANSETRON 4 MG/2 ML VIAL IVPUSH ONE (10:57)
[2019-05-13] MEDS ORDERED: INSULIN REGULAR HUMAN 100 UNITS/ML *VIAL ONE ×2 (11:21→13:05)
[2019-05-13] MEDS ORDERED: ONDANSETRON 4 MG/2 ML VIAL ONE (11:41)
[2019-05-13 11:49] LABS: BASO % 0.2 % (0-2.0); HEMATOCRIT 40.8 % (32.4-45.2); LYMPH % 3.5 % (8-40); MCH 32.2 pg (25.7-33.7); MCHC 31.8 g/dl (32.0-36.0); MEAN CELL VOLUME 101.1 fl (80-96); MEAN PLT VOLUME 8.1 fl (7.5-11.1); MONO % 1.9 % (3.8-10.2); NEUT % 94.4 % (42.8-82.8); PLATELET COUNT 547 K/MM3 (134-434); RBC 4.04 M/mm3 (3.60-5.2); RDW 13.5 % (11.6-15.6)
--- NOTE | 2019-05-13 11:50 | PDOC ---
Attending Attestation - Resident Resident Name: AronMisha - ED Attending Attestation I have performed the following: I have examined & evaluated the patient, The case was reviewed & discussed with the resident, I agree w/resident's findings & plan, Exceptions are as noted - HPI HPI: 05/13/19 11:44 29yo IDDM with elevated glu, nausea, vomiting. Pt states overnight her pump became disconnected. Pt with n/v this AM. Glu upon arrival >400. Pt with kussmaul respirations, pt appears ill. Concern for DKA. No recent illness. Was feeling fine until her pump became disconnected. Endo: Dr. Martinez. - Physicial Exam PE: 05/13/19 11:46 Gen: aaox3, tachypnic, tachy, ill appearing HEENT: dry mm, eomi neck: supple heart: +s1s2 tachy lungs: cta b/l, tachypnic abd: soft, nt/nd +bs ext: no c/c/e - Critical Care Time Total Critical Care Time: 60 Critical Care Statement: The care of this patient involved high complexity decision making to prevent further life threatening deterioration of the patient's condition and/or to evaluate & treat vital organ system(s) failure or risk of failure. - Medical Decision Making 05/13/19 11:47 a/p: 29yo female with iddm with pump malfunction -concern for dka -will send labs, ekg, cxr -cultures, abg -will start ivf hydration, pending potassium, will start insulin gtt -pt will need admission 05/13/19 11:52 wbc 37 chem pending 05/13/19 13:03 pt with wbc 37 reported 4.8k glu >400 starting 3rd liter insulin ordered resident discussed the case with Heriberto from the ICU who accepts the patient will send microblog to [facility] pt in DKA 05/13/19 13:06 pt npo 05/13/19 13:24 resident discussed the case with bradjordan Heart Score/ECG Review - ECG Intrepretation Comment:: 05/13/19 11:50 sinus tach at 137, nl axis, nl interval, no acute st/t wave findings
[2019-05-13 11:51] LABS: WHITE BLOOD COUNT 37.4 K/mm3 (4.0-10.0)
[2019-05-13 11:52] LABS: ARTERIAL BLD GAS O2 SATURATION 97.4 % (95-98); ARTERIAL BLOOD GAS PO2 125 mmHg (80-100); ARTERIAL BLOOD GAS pH 7.28 (7.35-7.45)
[2019-05-13 11:53] LABS: ARTERIAL BLOOD GAS BASE EXCESS -18.8 meq/l (-2-2); CARBOXYHEMOGLOBIN 1.2 % (0-2)
[2019-05-13] MEDS ORDERED: FAMOTIDINE 20 MG/50 ML IVPB 20 MG/50 ML MG IVPB ONE ×2 (11:54→12:15)
[2019-05-13 12:30] LABS: ANISOCYTOSIS 1+; MACROCYTOSIS 1+; PLATELET ESTIMATE NORMAL
[2019-05-13] MEDS ORDERED: SODIUM CHLORIDE 0.9% 1000 ML INFUS.BAG IV ONE (12:43)
[2019-05-13] MEDS ORDERED: INSULIN REGULAR HUMAN 100 UNITS/ML *VIAL IVPUSH ONE (12:51)
[2019-05-13 12:52] LABS: BLOOD UREA NITROGEN 20.3 mg/dL (7-18)
[2019-05-13 12:53] LABS: CREATININE 1.4 mg/dL (0.55-1.3)
[2019-05-13 12:54] LABS: CALCIUM 8.6 mg/dL (8.5-10.1); CHLORIDE 94 mmol/L (98-107); CO2 7 mmol/L (21-32); POTASSIUM 4.8 mmol/L (3.5-5.1); SODIUM 134 mmol/L (136-145); TOT PROT 6.9 g/dl (6.4-8.2)
[2019-05-13 12:55] LABS: ALBUMIN 3.1 g/dl (3.4-5.0); ALK PHOS 156 U/L (45-117); BILIRUBIN,TOTAL 0.6 mg/dL (0.2-1); SGOT/AST 14 U/L (15-37); SGPT/ALT 18 U/L (13-61)
[2019-05-13] MEDS ORDERED: ACETAMINOPHEN 1000 MG/100 ML VIAL (NON FORMULARY) IVPB ONE (12:56)
[2019-05-13] MEDS ORDERED: SODIUM CHLORIDE 0.9%/KCL 20 MEQ/1,000 ML INFUS.BAG IV SCH ×3 (13:00→17:09)
[2019-05-13] MEDS ORDERED: ACETAMINOPHEN INJECTION 100 ML IVPB ONE (13:05)
[2019-05-13] MEDS ORDERED: MAGNESIUM SULF 50% (8.12 MEQ/2 ML-1 GM VIAL) IVPB ONE (13:18)
[2019-05-13 13:19] LABS: ANION GAP 34 MMOL/L (8-16); MAGNESIUM 1.6 mg/dL (1.8-2.4)
[2019-05-13] MEDS: INSULIN REGULAR 100 UNITS in SODIUM CHLORIDE 99 ML IVPB SCH ×2 (13:20→21:50)
[2019-05-13 13:22] LABS: GLUCOSE,RANDOM 542 mg/dL (74-106)
[2019-05-13 13:30] LABS: URINE APPEARANCE CLOUDY; URINE BILIRUBIN NEGATIVE (NEGATIVE); URINE COLOR YELLOW; URINE GLUCOSE (UA) 3+ (NEGATIVE); URINE KETONE 4+ (NEGATIVE); URINE LEUK ESTERASE NEGATIVE (NEGATIVE); URINE NITRITE NEGATIVE (NEGATIVE); URINE PROTEIN TRACE (NEGATIVE); URINE UROBILINOGEN 0.2 mg/dL (0.2-1.0)
[2019-05-13] MEDS ORDERED: MAGNESIUM 1GM/D5W - 1 GM/100 ML IVPB IVPB ONE (13:34)
[2019-05-13 14:32] LABS: ARTERIAL BLD GAS O2 SATURATION 97.1 % (95-98); ARTERIAL BLOOD GAS BASE EXCESS -24.1 meq/l (-2-2); ARTERIAL BLOOD GAS PO2 148 mmHg (80-100)
[2019-05-13 14:33] LABS: ALLENS TEST POSITIVE
[2019-05-13 14:35] LABS: ARTERIAL BLOOD GAS PCO2 11.9 mmHg (35-45); ARTERIAL BLOOD GAS pH 7.14 (7.35-7.45)
--- NOTE | 2019-05-13 14:49 | HP ---
CHIEF COMPLAINT: nausea/vomiting, generalized weakness PCP: Dr. Clare Acevedo HISTORY OF PRESENT ILLNESS: Paris Avila is a 29 year old female with a past medical history of type 1 DM with episodes of DKA, recurrent UTIs, gastroparesis, HTN, HLD who is presenting after waking up with episodes of nausea and vomiting. The patient states that she woke up this morning and was very tremulous, weak, and had several episodes of non-bloody, non-bilious vomiting. She states that she wore her insulin pump to bed last night around 8PM and when she awoke this morning, the insulin pump was off and she is unsure of how long she did not have insulin for. She uses the [employer]onic [id number] insulin pump and stated she think she has 100 units of basal insulin but is otherwise unsure of her settings. She currently feels very cold, tremorous, weak, has some nausea, abdominal pain, short of breath. Denies chest pain, constipation, diarrhea, fevers, headaches, dizziness, focal weakness, numbness, tingling, dysuria, hematuria, denies extremity pain. Denies recent travel or sick contacts. ER course was notable for: (1) HR 135, RR 24-34 (2) WBC 37.4 with left shift, Plts 547, MCV 101.1 (3) Na 134 (141 corrected) K 4.8, bicarb 7, CRE 1.4 (baseline 0.8-1.0), Mg 1.6, alk phos 156, Bhydrobutyrate 139.7 (4) ABG 7.28, CO2 14. repeat ABG 7.14, CO2 11.9 (5) UA 3+ glucose, 4+ ketones Recent Travel: denies PAST MEDICAL HISTORY: as above PAST SURGICAL HISTORY: denies Social History: Smoking: smokes less than a half pack per day Alcohol: denies Drugs: former marijuana smoker Allergies No Known Allergies Allergy (Verified 05/13/19 10:38) HOME MEDICATIONS: Home Medications Medication Instructions Recorded Amitriptyline HCl [Elavil -] 75 mg PO HS 05/13/19 Famotidine 20 mg PO BID 05/13/19 Insulin (Novolog) [Novolog Vial] 100 units SQ ASDIR 05/13/19 Medroxyprogesterone Acetate 150 mg IM MONTHLY 05/13/19 [Depo-Provera] Metoclopramide HCl [Reglan] 5 mg PO BID 05/13/19 REVIEW OF SYSTEMS CONSTITUTIONAL: chills, diaphoresis, generalized weakness Absent: fever, malaise, loss of appetite, weight change HEENT: Absent: rhinorrhea, nasal congestion, throat pain, throat swelling, difficulty swallowing, visual changes CARDIOVASCULAR: palpitations Absent: chest pain, syncope, irregular heart rate, lightheadedness, peripheral edema RESPIRATORY: shortness of breath Absent: cough, dyspnea with exertion, orthopnea, wheezing, GASTROINTESTINAL: abdominal pain, nausea, vomiting Absent: abdominal distension, diarrhea, constipation, melena, hematochezia GENITOURINARY: Absent: dysuria, frequency, urgency, hesitancy, hematuria MUSCULOSKELETAL: Absent: myalgia, arthralgia, joint swelling, back pain, neck pain SKIN: Absent: rash, itching, pallor HEMATOLOGIC/IMMUNOLOGIC: Absent: easy bleeding, easy bruising, lymphadenopathy, frequent infections ENDOCRINE: Absent: unexplained weight gain, unexplained weight loss NEUROLOGIC: Absent: headache, focal weakness or paresthesias, dizziness, unsteady gait, seizure, mental status changes, bladder or bowel incontinence PSYCHIATRIC: Absent: anxiety, depression, suicidal or homicidal ideation, hallucinations. PHYSICAL EXAMINATION Vital Signs - 24 hr 05/13/19 05/13/19 05/13/19 10:38 11:59 12:31 Temperature 97.5 F L Pulse Rate 140 H Pulse Rate [ 135 H 139 H Apical] Respiratory 34 H 28 H 24 H Rate Blood Pressure 130/84 Blood Pressure 142/99 131/83 [Right Arm] O2 Sat by Pulse 99 100 100 Oximetry (%) 05/13/19 05/13/19 12:55 13:20 Temperature 98.3 F Pulse Rate Pulse Rate [ 140 H Apical] Respiratory 28 H Rate Blood Pressure Blood Pressure 139/78 [Right Arm] O2 Sat by Pulse 100 Oximetry (%) GENERAL: Awake, alert, and and oriented. Tremorous of the whole body. Generalized weakness. HEAD: Normal with no signs of trauma. EYES: Pupils equal, round and reactive to light, extraocular movements intact, conjunctiva clear. THROAT: Dry mucous membranes with fruity odor to breath. LUNGS: Tachypenic, breath sounds equal, clear to auscultation bilaterally. No wheezes, and no crackles. Using accessory muscles. HEART: Tachycardic rate and regular rhythm, normal S1 and S2. Could not appreciate murmurs. ABDOMEN: Soft, tender in epigastric region, not distended, hypoactive bowel sounds, no guarding, no rebound, no masses. MUSCULOSKELETAL: Normal range of motion at all joints. No bony deformities or tenderness. EXTREMITIES: 2+ pulses, cool, well-perfused. No calf tenderness. No peripheral edema. NEUROLOGICAL: Cranial nerves II-XII intact. 4/5 muscle strength throughout, sensation intact to gross touch. PSYCHIATRIC: Cooperative. Nervous mood about medical condition. SKIN: Cool, dry, no rashes or lesions noted, normal capillary refill. Laboratory Results - last 24 hr 05/13/19 05/13/19 05/13/19 11:00 11:00 11:00 WBC 37.4 H* RBC 4.04 Hgb 13.0 Hct 40.8 D MCV 101.1 H MCH 32.2 MCHC 31.8 L RDW 13.5 Plt Count 547 H D MPV 8.1 Absolute Neuts (auto) 35.3 H Neutrophils % 94.4 H Neutrophils % (Manual) 94.8 H Band Neutrophils % 1.0 Lymphocytes % 3.5 L D Lymphocytes % (Manual) 2.1 L D Monocytes % 1.9 L Monocytes % (Manual) 2 L Eosinophils % 0.0 Eosinophils % (Manual) 0.0 Basophils % 0.2 Basophils % (Manual) 0.0 Myelocytes % (Man) 0 Promyelocytes % (Man) 0 Blast Cells % (Manual) 0 Nucleated RBC % 0 Metamyelocytes 0 Hypochromia 0 Platelet Estimate Normal Polychromasia 1+ Poikilocytosis 0 Anisocytosis 1+ Microcytosis 0 Macrocytosis 1+ [place] Cells 1+ Anticoagulation Therapy Puncture Site ABG pH ABG pCO2 at Pt Temp ABG pO2 at Pt Temp ABG HCO3 ABG O2 Sat (Measured) ABG O2 Content ABG Base Excess Jase Test Carboxyhemoglobin Methemoglobin Patient On Oxygen O2 Delivery Device Oxygen Flow Rate Vent Mode Vent Rate Mechanical Rate Pressure Support Vent Sodium 134 L Potassium 4.8 Chloride 94 L Carbon Dioxide 7 L Anion Gap 34 H BUN 20.3 H Creatinine 1.4 H Est GFR (CKD-EPI)AfAm 58.70 Est GFR (CKD-EPI)NonAf 50.65 POC Glucometer Random Glucose 542 H* Lactic Acid Calcium 8.6 Magnesium 1.6 L Total Bilirubin 0.6 AST 14 L ALT 18 Alkaline Phosphatase 156 H Creatine Kinase 54 Troponin I < 0.02 Total Protein 6.9 Albumin 3.1 L Beta-Hydroxybutyrate 139.7 H Serum , Qual Negative Urine Color Urine Appearance Urine pH Ur Specific House Urine Protein Urine Glucose (UA) Urine Ketones Urine Blood Urine Nitrite Urine Bilirubin Urine Urobilinogen Ur Leukocyte Esterase 05/13/19 05/13/19 05/13/19 11:00 11:00 11:02 WBC RBC Hgb Hct MCV MCH MCHC RDW Plt Count MPV Absolute Neuts (auto) Neutrophils % Neutrophils % (Manual) Band Neutrophils % Lymphocytes % Lymphocytes % (Manual) Monocytes % Monocytes % (Manual) Eosinophils % Eosinophils % (Manual) Basophils % Basophils % (Manual) Myelocytes % (Man) Promyelocytes % (Man) Blast Cells % (Manual) Nucleated RBC % Metamyelocytes Hypochromia Platelet Estimate Polychromasia Poikilocytosis Anisocytosis Microcytosis Macrocytosis Elly Cells Anticoagulation Therapy No Result Required. Puncture Site No Result Required. ABG pH 7.28 L ABG pCO2 at Pt Temp 14.0 L* ABG pO2 at Pt Temp 125 H ABG HCO3 6.4 L ABG O2 Sat (Measured) 97.4 ABG O2 Content 22.2 ABG Base Excess -18.8 L Jase Test No Result Required. Carboxyhemoglobin 1.2 Methemoglobin 1.3 Patient On Oxygen No Result Required. O2 Delivery Device No Result Required. Oxygen Flow Rate No Result Required. Vent Mode No Result Required. Vent Rate No Result Required. Mechanical Rate No Result Required. Pressure Support Vent No Result Required. Sodium Potassium Chloride Carbon Dioxide Anion Gap BUN Creatinine Est GFR (CKD-EPI)AfAm Est GFR (CKD-EPI)NonAf POC Glucometer 490 Random Glucose Lactic Acid 1.9 Calcium Magnesium Total Bilirubin AST ALT Alkaline Phosphatase Creatine Kinase Troponin I Total Protein Albumin Beta-Hydroxybutyrate Serum , Qual Urine Color Urine Appearance Urine pH Ur Specific House Urine Protein Urine Glucose (UA) Urine Ketones Urine Blood Urine Nitrite Urine Bilirubin Urine Urobilinogen Ur Leukocyte Esterase 05/13/19 05/13/19 05/13/19 12:47 13:00 13:58 WBC RBC Hgb Hct MCV MCH MCHC RDW Plt Count MPV Absolute Neuts (auto) Neutrophils % Neutrophils % (Manual) Band Neutrophils % Lymphocytes % Lymphocytes % (Manual) Monocytes % Monocytes % (Manual) Eosinophils % Eosinophils % (Manual) Basophils % Basophils % (Manual) Myelocytes % (Man) Promyelocytes % (Man) Blast Cells % (Manual) Nucleated RBC % Metamyelocytes Hypochromia Platelet Estimate Polychromasia Poikilocytosis Anisocytosis Microcytosis Macrocytosis [place] Cells Anticoagulation Therapy Puncture Site ABG pH ABG pCO2 at Pt Temp ABG pO2 at Pt Temp ABG HCO3 ABG O2 Sat (Measured) ABG O2 Content ABG Base Excess Jase Test Carboxyhemoglobin Methemoglobin Patient On Oxygen O2 Delivery Device Oxygen Flow Rate Vent Mode Vent Rate Mechanical Rate Pressure Support Vent Sodium Potassium Chloride Carbon Dioxide Anion Gap BUN Creatinine Est GFR (CKD-EPI)AfAm Est GFR (CKD-EPI)NonAf POC Glucometer 494 384 Random Glucose Lactic Acid Calcium Magnesium Total Bilirubin AST ALT Alkaline Phosphatase Creatine Kinase Troponin I Total Protein Albumin Beta-Hydroxybutyrate Serum , Qual Urine Color Yellow Urine Appearance Cloudy Urine pH 5.0 Ur Specific House 1.026 Urine Protein Trace Urine Glucose (UA) 3+ H Urine Ketones 4+ H Urine Blood Negative Urine Nitrite Negative Urine Bilirubin Negative Urine Urobilinogen 0.2 Ur Leukocyte Esterase Negative 05/13/19 14:15 WBC RBC Hgb Hct MCV MCH MCHC RDW Plt Count MPV Absolute Neuts (auto) Neutrophils % Neutrophils % (Manual) Band Neutrophils % Lymphocytes % Lymphocytes % (Manual) Monocytes % Monocytes % (Manual) Eosinophils % Eosinophils % (Manual) Basophils % Basophils % (Manual) Myelocytes % (Man) Promyelocytes % (Man) Blast Cells % (Manual) Nucleated RBC % Metamyelocytes Hypochromia Platelet Estimate Polychromasia Poikilocytosis Anisocytosis Microcytosis Macrocytosis Elly Cells Anticoagulation Therapy No Result Required. Puncture Site Right radial ABG pH 7.14 L* ABG pCO2 at Pt Temp 11.9 L* ABG pO2 at Pt Temp 148 H ABG HCO3 3.8 L ABG O2 Sat (Measured) 97.1 ABG O2 Content 19.3 ABG Base Excess -24.1 L Jase Test Positive Carboxyhemoglobin Methemoglobin Patient On Oxygen Yes O2 Delivery Device Nasal Oxygen Flow Rate 2l Vent Mode No Result Required. Vent Rate No Result Required. Mechanical Rate No Result Required. Pressure Support Vent No Result Required. Sodium Potassium Chloride Carbon Dioxide Anion Gap BUN Creatinine Est GFR (CKD-EPI)AfAm Est GFR (CKD-EPI)NonAf POC Glucometer Random Glucose Lactic Acid Calcium Magnesium Total Bilirubin AST ALT Alkaline Phosphatase Creatine Kinase Troponin I Total Protein Albumin Beta-Hydroxybutyrate Serum , Qual Urine Color Urine Appearance Urine pH Ur Specific House Urine Protein Urine Glucose (UA) Urine Ketones Urine Blood Urine Nitrite Urine Bilirubin Urine Urobilinogen Ur Leukocyte Esterase ASSESSMENT/PLAN: Paris Avila is a 29 year old female with a past medical history of type 1 DM with episodes of DKA, recurrent UTIs, gastroparesis, HTN, HLD admitted for diabetic ketoacidosis Diabetic Ketoacidosis - pH 7.14, bicarb 7, GLU 542, ketones present in blood and urine, anion gap 34 - given 3L of fluids in ED - continued on NS + 20kCL at 100cc/hr for maintenance - close monitoring of potassium and phosphate and goal to close anion gap - insulin 0.1units/kg/hr - can switch fluids to D5 NS +20KCL when GLU<250 - BMP q2h with phos - monitor ABG - BGM q1h - endocrine consulted - ICU monitoring of vitals, observe respiratory status Leukocytosis - likely in the setting of DKA as has had elevation in WBC in the past - no signs of infection - observe and monitor for resolution OLEG - baseline CRE 0.8-1.0, admission at 1.4 - likely in setting of dehydration from DKA - fluids administered in ED - monitor for resolution HTN/HLD - no medications at home, control with diet Gastroparesis - can restart Reglan and famotidine when patient starts to eat DVT - heparin 5000 units subq tid FEN - NS + 20kCL at 100cc/hr - continue to monitor electrolytes and replete as necessary - NPO Dispo - admit to ICU Family Medical History Other Family History: HTN in both grandparents Problem List - Problem (1) OLEG (acute kidney injury) Code(s): N17.9 - ACUTE KIDNEY FAILURE, UNSPECIFIED (2) Abdominal pain Code(s): R10.9 - UNSPECIFIED ABDOMINAL PAIN (3) DKA (diabetic ketoacidoses) Code(s): E11.10 - TYPE 2 DIABETES MELLITUS WITH KETOACIDOSIS WITHOUT COMA (4) Dehydration Code(s): E86.0 - DEHYDRATION (5) Gastroparesis Code(s): K31.84 - GASTROPARESIS (6) Hyperglycemia Code(s): R73.9 - HYPERGLYCEMIA, UNSPECIFIED (7) Hypertension Code(s): I10 - ESSENTIAL (PRIMARY) HYPERTENSION (8) Leukemoid reaction Code(s): D72.823 - LEUKEMOID REACTION (9) Nausea & vomiting Code(s): R11.2 - NAUSEA WITH VOMITING, UNSPECIFIED Qualifiers: Visit type - Emergency Visit Emergency Visit: Yes ED Registration Date: 05/13/19 Care time: The patient presented to the Emergency Department on the above date and was hospitalized for further evaluation of their emergent condition. - New Patient This patient is new to me today: Yes Date on this admission: 05/13/19 - Critical Care Critical Care patient: Yes Total Critical Care Time (in minutes): 40 Critical Care Statement: The care of this patient involved high complexity decision making to prevent further life threatening deterioration of the patient's condition and/or to evaluate & treat vital organ system(s) failure or risk of failure.
--- NOTE | 2019-05-13 14:51 | CONSULT ---
Consult - text type - Consultation Consultation Note: PULM/CCM Pt seen and examined in ICU CC: " My pump stopped, I have DKA" Hx obtained from pt herself and medical record HPI: 29 y/o woman with difficult to control IDDM, multiple admissions for DKA. No recent sick prodrome, no sick contacts. Relates Insulin pump failure yesterday. Awoke feeling unwell. 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 Ambulatory Orders Amitriptyline HCl [Elavil -] 75 mg PO HS 05/13/19 Famotidine 20 mg PO BID 05/13/19 Insulin (Novolog) [Novolog Vial] 100 units SQ ASDIR 05/13/19 Medroxyprogesterone Acetate [Depo-Provera] 150 mg IM MONTHLY 05/13/19 Metoclopramide HCl [Reglan] 5 mg PO BID 05/13/19 Active Medications Chlorhexidine Gluconate (Hibiclens For Decolonization -) 1 applic TP HS [facility] Heparin Sodium (Porcine) (Heparin -) 5,000 unit SQ TID [facility] Insulin Human Regular 100 (units/ Sodium Chloride) 100 mls @ 6.35 mls/hr IVPB TITR [facility]; Protocol Last Admin: 05/13/19 13:20 Dose: 0.1 units/kg/hr, 6.35 mls/hr Documented by: Potassium Chloride/Sodium Chloride (Ns+20 Meq Kcl -) 20 meq in 1,000 mls @ 100 mls/hr IV ASDIR [facility] Last Admin: 05/13/19 14:03 Dose: 100 mls/hr Documented by: Mupirocin (Bactroban Ointment (For Decolonization) -) 1 applic NS BID [facility] Stop: 05/18/19 21:59 CBC, BMP 05/13/19 11:00 05/13/19 11:00 ABG Results ABG pH 7.14 (7.35-7.45) L* 05/13/19 14:15 ABG pCO2 at Pt Temp 11.9 mmHg (35-45) L* 05/13/19 14:15 ABG pO2 at Pt Temp 148 mmHg (80-100) H 05/13/19 14:15 ABG HCO3 3.8 mmol/L (22-27) L 05/13/19 14:15 ABG O2 Sat (Measured) 97.1 % (95-98) 05/13/19 14:15 ABG O2 Content 19.3 % vol 05/13/19 14:15 ABG Base Excess -24.1 meq/l (-2-2) L 05/13/19 14:15 PE: Gen: toxic but well nourished, awake oriented young woman HEENT: NCAT PULM:tachypneic, no wheezes CV: tachycardic, no m/r/g appreciated ABD: soft, +BS EXT: w/w/p, trace edema Neuro: intact 29 Y/o woman with difficult to control IDDM now with DKA in setting of pump failure and without apparent inciting acute illness -suspect leukocytosis is reactive, but low threshold for broad spectrum abx. for DKA -Insulin drip 0.1units/kg/hr --if BG doesnt fall by 50-70 mg/dl in first hr double insulin infusion until BG drops by 50-70 mg/dl --goal B-200mg/dl until AG closes --if BG fall <70 mg/dl hold insulin x15m and bolus D50 IVP --restart insulin at half prior dose and notify prodiver -IV fluids 100-250ml/hr --corrected sodium >140 use d5 1/2NS --corrected sodium <140 use NS --add D5 once BG reaches 250 mg/dl -potassium replacement --K> 5.5mEq/l no replacement --K 4-5 mEq/l add KCl 20 mEq to each liter of IVF --K 3.5-3.9 mEq/l add KCL 20-40 mEq to each liter of IVF --K 3.1-3.4 mEq/l add KCL 40-60 mEq to each liter of IVF --K <3 mEq/l add KCL 40-80 mEq to each liter of IVF (call provider) -BMP q4hrs until AG closes -Once AG closed and ketosis resolved and able to tolerate PO diet transition to insulin sq NPO SQH for DVT prophy, no indication for GI Zofran and reglan for nausea Azra ACNP 4436 35min of CCT
[2019-05-13 15:29] LABS: BLOOD UREA NITROGEN 16.2 mg/dL (7-18); CALCIUM 8.1 mg/dL (8.5-10.1); CREATININE 1.3 mg/dL (0.55-1.3); PHOSPHOROUS 3.7 mg/dL (2.5-4.9); POTASSIUM 4.4 mmol/L (3.5-5.1)
[2019-05-13] MEDS ORDERED: ACETAMINOPHEN 325 MG TABLET (FP) PO PRN (15:46)
--- NOTE | 2019-05-13 16:00 | PN ---
Teaching Attending Note Name of Resident: Chuy Chakraborty ATTENDING PHYSICIAN STATEMENT I saw and evaluated the patient. I reviewed the resident's note and discussed the case with the resident. I agree with the resident's findings and plan as documented. SUBJECTIVE: CC: N/V/Abd pain HPI: Paris is an unfortunate 29 y/o lady with h/o of DM I, recurrent admissions for DKA, HTN, HLP, gastroparesis, and other medical problems who presented with ADB pain /N/V since this am . complains of back pain but this is typical for her She was in her usual state of health when she went to bed last night. when she woke up she had N/V and abd pain, she knew those sx were typical fr DKA. she She found the tubing was not connected to the pump. she describes non bloody non bilious emesis. No diarrhea , has mild cough , no sputum production . No dysuria . denies fever /chills at home. denies runny nose, sore throat, or any other URI sx . has insulin pump x 1 yr. total basal is 100 units /day, she administer prandial boluses per carb consumption OBJECTIVE: NAD, tachypnic, looks ill. no facial droop. Dry MM, no lymphnodes in neck , nl oropharynx. CV: Regular rhythm, tachycardic, no MRG Lungs: CTAB Abd: soft, NT, ND , decreased bowel sounds Ext : No edema or erythema. no fungal infection or ulcers on feet Neuro: did not participate due to feeling sick. but no facial droop, round equal pupils, reactive to light, Moves all her extremities. ASSESSMENT AND PLAN: Paris is an unfortunate 29 y/o lady with h/o of DM I, recurrent admissions for DKA, HTN, HLP, gastroparesis, and other medical problems who presented with ADB pain /N/V x 1 day. She was found to be in DKA and OLEG. 1- DKA: due to dysfunctional insulin pump tubing. frequent admissions for DKA raises suspicion for non compliance. - cont Insuin gtt. goal is to close gap - cont IVF . add K cl to fluids - monitor electrolytes x 2 hours. BGM q 1 hr - no suggestive sx or signs of infection . leukocytosis could be reactive . - NPO for now - when AG closes , will start long acting. 2- OLEG: due to volume depletion . - IVF - NPO for now . 3- DVT Px : heparin sq
[2019-05-13 18:54] LABS: BLOOD UREA NITROGEN 15.7 mg/dL (7-18); CALCIUM 8.2 mg/dL (8.5-10.1); CREATININE 1.4 mg/dL (0.55-1.3); MAGNESIUM 2.2 mg/dL (1.8-2.4); PHOSPHOROUS 3.9 mg/dL (2.5-4.9); POTASSIUM 5.3 mmol/L (3.5-5.1)
[2019-05-13] MEDS ORDERED: D5-1/2NS+20 MEQ KCL - 20 MEQ/1,000 ML INFUS.BAG IV SCH (20:45)
[2019-05-13] MEDS: MUPIROCIN 2% TOPICAL OINTMENT FOR DECOLONIZATION NS SCH (21:37)
[2019-05-13] MEDS: HEPARIN NA (PORCINE) 5,000 UNITS/ML 1ML VIAL SQ SCH (21:38)
[2019-05-13] MEDS: CHLORHEXIDINE GLUCONATE 4% CLEANSER FOR DECOLONIZATION TP SCH (21:39)
[2019-05-13 22:57] LABS: BLOOD UREA NITROGEN 12.2 mg/dL (7-18); CREATININE 1.2 mg/dL (0.55-1.3); PHOSPHOROUS 2.2 mg/dL (2.5-4.9); POTASSIUM 4.3 mmol/L (3.5-5.1)
[2019-05-14] MEDS ORDERED: INSULIN (LEVEMIR) 100 UNITS/ML UNITS SQ ONE (00:03)
[2019-05-14] MEDS ORDERED: DEXTROSE 50%-WATER - 25 GM/50 ML VIAL IVPUSH PRN (00:08)
--- NOTE | 2019-05-14 00:13 | PN ---
Progress Note (short form) - Note Progress Note: Discussed with Dr. Martinez, Orders for Levemir 10, 1/2 NS with 20 meq K+, clear liquid diet and Q4H Insulin coverage. Will maintain Q1h BGM as Glucose is 129 and will enter PRN D50 order if BGM is lower than 100. Will continue to monitor.
[2019-05-14] MEDS ORDERED: SODIUM CHLORIDE 0.45%/POT 20 MEQ/1,000 ML INFUS.BAG IV SCH (00:15)
[2019-05-14] MEDS ORDERED: SODIUM CHLORIDE 0.45% 1,000 ML with POTASSIUM CHLORIDE 30 MEQ IVPB SCH (00:15)
[2019-05-14] MEDS ORDERED: SODIUM CHLORIDE 0.45% 1,000 ML IV SCH (00:15)
[2019-05-14] MEDS: HEPARIN NA (PORCINE) 5,000 UNITS/ML 1ML VIAL SQ SCH ×5 (00:35→21:48)
[2019-05-14] MEDS ORDERED: INSULIN SLIDING SCALE (NOVOLOG) 1 VIAL SQ SCH ×2 (02:00→06:15)
[2019-05-14] MEDS ORDERED: DEXTROSE 50%-WATER 25 GM/50 ML DISP.SYRIN ONE (03:20)
[2019-05-14] MEDS ORDERED: POTASSIUM PHOSPHATE 30 MM in DEXTROSE 5%-WATER - 250 ML IVPB ONE (04:37)
[2019-05-14] MEDS ORDERED: NAPH,MB-DB/K PH,MBDB POWDER PACKET PO ONE ×2 (06:01→09:45)
[2019-05-14] MEDS ORDERED: LIDOCAINE HCL 1%, 10 MG/ML (20ML VIAL) ONE (06:13)
[2019-05-14 07:43] LABS: BASO % 0.2 % (0-2.0); HEMATOCRIT 34.4 % (32.4-45.2); HEMOGLOBIN 11.4 GM/dL (10.7-15.3); LYMPH % 6.5 % (8-40); MCH 32.2 pg (25.7-33.7); MCHC 33.2 g/dl (32.0-36.0); MEAN PLT VOLUME 7.4 fl (7.5-11.1); MONO % 4.6 % (3.8-10.2); NEUT % 88.7 % (42.8-82.8); PLATELET COUNT 436 K/MM3 (134-434); RBC 3.55 M/mm3 (3.60-5.2); RDW 13.4 % (11.6-15.6)
[2019-05-14 08:09] LABS: WHITE BLOOD COUNT 35.3 K/mm3 (4.0-10.0)
[2019-05-14 08:13] LABS: ALBUMIN 2.6 g/dl (3.4-5.0); BILIRUBIN,TOTAL 0.5 mg/dL (0.2-1); BLOOD UREA NITROGEN 7.5 mg/dL (7-18); CALCIUM 7.5 mg/dL (8.5-10.1); MAGNESIUM 1.6 mg/dL (1.8-2.4); PHOSPHOROUS 2.1 mg/dL (2.5-4.9); POTASSIUM 3.5 mmol/L (3.5-5.1); TOT PROT 5.8 g/dl (6.4-8.2)
[2019-05-14] MEDS ORDERED: DOCUSATE SODIUM 100 MG CAPSULE (FP) PO PRN (08:38)
--- NOTE | 2019-05-14 08:44 | PN ---
Progress Note (short form) - Note Progress Note: Progress Note Pt was seen and examined in the ICU. Complains of fatique. AGAP remains closed. No c/o nausea. Tolerating po liquids, will advance to regular. Started on G largine o/n. Active Medications Acetaminophen (Tylenol -) 650 mg PO Q4H PRN PRN Reason: PAIN Last Admin: 05/13/19 16:31 Dose: 650 mg Documented by: Chlorhexidine Gluconate (Hibiclens For Decolonization -) 1 applic TP HS [facility] Last Admin: 05/13/19 21:39 Dose: Not Given Documented by: Heparin Sodium (Porcine) (Heparin -) 5,000 unit SQ TID [facility] Last Admin: 05/14/19 06:49 Dose: Not Given Documented by: Potassium Chloride/Sodium Chloride (1/2ns+20meq Kcl) 20 meq in 1,000 mls @ 100 mls/hr IV ASDIR [facility] Last Admin: 05/14/19 01:05 Dose: 100 mls/hr Documented by: Potassium Phosphate 30 mm/ (Dextrose) 260 mls @ 62.5 mls/hr IVPB ONCE ONE Stop: 05/14/19 08:46 Last Admin: 05/14/19 06:48 Dose: 62.5 mls/hr Documented by: Insulin Aspart (Novolog Vial Sliding Scale -) 1 vial SQ ACHS [facility]; Protocol Magnesium Sulfate (Magnesium Sulfate) 2 gm IVPB ONCE ONE Stop: 05/14/19 08:36 Mupirocin (Bactroban Ointment (For Decolonization) -) 1 applic NS BID [facility] Stop: 05/18/19 21:59 Last Admin: 05/13/19 21:37 Dose: 1 applic Documented by: Potassium Phos/Sodium Phos (Phos-Nak Packet -) 1 packet PO ONCE ONE Stop: 05/14/19 08:36 Vital Signs Period Temp Pulse Resp BP Sys/Plata Pulse Ox Last 24 Hr 97.5 F-98.4 F 120-140 20-34 127-146/54-99 99-100 Intake & Output 05/11/19 05/12/19 05/13/19 05/15/19 23:59 23:59 23:59 00:59 Intake Total 3967 500 Output Total 550 Balance 3417 500 Weight 71.35 kg Exam Gen: well nourished, awake oriented young woman HEENT: NCAT PULM:CTA bilat CV: S1S2, tachy, no m/r/g noted ABD: soft, +BS EXT: w/w/p, trace edema Neuro: intact CBC, BMP 05/14/19 06:00 05/14/19 06:00 29 Y/o woman with difficult to control IDDM now with DKA in setting of pump failure and without apparent inciting acute illness. Noted leukocytosis w/o e/o infection. Plan: -Cont IV hydration -Monitor BMP q12 -Replete electrolytes --K> 5.5mEq/l no replacement --K 4-5 mEq/l add KCl 20 mEq to each liter of IVF --K 3.5-3.9 mEq/l add KCL 20-40 mEq to each liter of IVF --K 3.1-3.4 mEq/l add KCL 40-60 mEq to each liter of IVF --K <3 mEq/l add KCL 40-80 mEq to each liter of IVF (call provider) -Po clears; advance as tolerated -Cont glargine -Diabetes consult for outpatient management -SQH for DVT prophy, no indication for GI -Zofran and reglan for nausea -Monitor WBC and temps -Culture for fever -Low threshold for antibiotics. Tomasa Smith, ACNP
--- NOTE | 2019-05-14 08:55 | PN ---
Progress Note (short form) - Note Progress Note: Subjective: no abd pain , no back pain, no fever ro chills. She feels much better. did not sleep last night Objective: Vital Signs: Last Vital Signs Temp Pulse Resp BP Pulse Ox 98.4 F 120 H 20 134/76 100 05/14/19 06:00 05/14/19 06:00 05/14/19 06:00 05/14/19 06:00 05/13/19 20:14 Laboratory Results - last 24 hr 05/13/19 05/13/19 05/13/19 11:00 11:00 11:00 WBC 37.4 H* RBC 4.04 Hgb 13.0 Hct 40.8 D MCV 101.1 H MCH 32.2 MCHC 31.8 L RDW 13.5 Plt Count 547 H D MPV 8.1 Absolute Neuts (auto) 35.3 H Neutrophils % 94.4 H Neutrophils % (Manual) 94.8 H Band Neutrophils % 1.0 Lymphocytes % 3.5 L D Lymphocytes % (Manual) 2.1 L D Monocytes % 1.9 L Monocytes % (Manual) 2 L Eosinophils % 0.0 Eosinophils % (Manual) 0.0 Basophils % 0.2 Basophils % (Manual) 0.0 Myelocytes % (Man) 0 Promyelocytes % (Man) 0 Blast Cells % (Manual) 0 Nucleated RBC % 0 Metamyelocytes 0 Hypochromia 0 Platelet Estimate Normal Polychromasia 1+ Poikilocytosis 0 Anisocytosis 1+ Microcytosis 0 Macrocytosis 1+ Colwell Cells 1+ Anticoagulation Therapy Puncture Site ABG pH ABG pCO2 at Pt Temp ABG pO2 at Pt Temp ABG HCO3 ABG O2 Sat (Measured) ABG O2 Content ABG Base Excess Jase Test Carboxyhemoglobin Methemoglobin Patient On Oxygen O2 Delivery Device Oxygen Flow Rate Vent Mode Vent Rate Mechanical Rate Pressure Support Vent Sodium 134 L Potassium 4.8 Chloride 94 L Carbon Dioxide 7 L Anion Gap 34 H BUN 20.3 H Creatinine 1.4 H Est GFR (CKD-EPI)AfAm 58.70 Est GFR (CKD-EPI)NonAf 50.65 POC Glucometer Random Glucose 542 H* Hemoglobin A1c % Lactic Acid Calcium 8.6 Phosphorus Magnesium 1.6 L Total Bilirubin 0.6 AST 14 L ALT 18 Alkaline Phosphatase 156 H Creatine Kinase 54 Troponin I < 0.02 Total Protein 6.9 Albumin 3.1 L Beta-Hydroxybutyrate 139.7 H Serum , Qual Negative Urine Color Urine Appearance Urine pH Ur Specific [place] Urine Protein Urine Glucose (UA) Urine Ketones Urine Blood Urine Nitrite Urine Bilirubin Urine Urobilinogen Ur Leukocyte Esterase 05/13/19 05/13/19 05/13/19 11:00 11:00 11:02 WBC RBC Hgb Hct MCV MCH MCHC RDW Plt Count MPV Absolute Neuts (auto) Neutrophils % Neutrophils % (Manual) Band Neutrophils % Lymphocytes % Lymphocytes % (Manual) Monocytes % Monocytes % (Manual) Eosinophils % Eosinophils % (Manual) Basophils % Basophils % (Manual) Myelocytes % (Man) Promyelocytes % (Man) Blast Cells % (Manual) Nucleated RBC % Metamyelocytes Hypochromia Platelet Estimate Polychromasia Poikilocytosis Anisocytosis Microcytosis Macrocytosis Colwell Cells Anticoagulation Therapy No Result Required. Puncture Site No Result Required. ABG pH 7.28 L ABG pCO2 at Pt Temp 14.0 L* ABG pO2 at Pt Temp 125 H ABG HCO3 6.4 L ABG O2 Sat (Measured) 97.4 ABG O2 Content 22.2 ABG Base Excess -18.8 L Jase Test No Result Required. Carboxyhemoglobin 1.2 Methemoglobin 1.3 Patient On Oxygen No Result Required. O2 Delivery Device No Result Required. Oxygen Flow Rate No Result Required. Vent Mode No Result Required. Vent Rate No Result Required. Mechanical Rate No Result Required. Pressure Support Vent No Result Required. Sodium Potassium Chloride Carbon Dioxide Anion Gap BUN Creatinine Est GFR (CKD-EPI)AfAm Est GFR (CKD-EPI)NonAf POC Glucometer 490 Random Glucose Hemoglobin A1c % Lactic Acid 1.9 Calcium Phosphorus Magnesium Total Bilirubin AST ALT Alkaline Phosphatase Creatine Kinase Troponin I Total Protein Albumin Beta-Hydroxybutyrate Serum , Qual Urine Color Urine Appearance Urine pH Ur Specific [place] Urine Protein Urine Glucose (UA) Urine Ketones Urine Blood Urine Nitrite Urine Bilirubin Urine Urobilinogen Ur Leukocyte Esterase 05/13/19 05/13/19 05/13/19 12:47 13:00 13:58 WBC RBC Hgb Hct MCV MCH MCHC RDW Plt Count MPV Absolute Neuts (auto) Neutrophils % Neutrophils % (Manual) Band Neutrophils % Lymphocytes % Lymphocytes % (Manual) Monocytes % Monocytes % (Manual) Eosinophils % Eosinophils % (Manual) Basophils % Basophils % (Manual) Myelocytes % (Man) Promyelocytes % (Man) Blast Cells % (Manual) Nucleated RBC % Metamyelocytes Hypochromia Platelet Estimate Polychromasia Poikilocytosis Anisocytosis Microcytosis Macrocytosis Elly Cells Anticoagulation Therapy Puncture Site ABG pH ABG pCO2 at Pt Temp ABG pO2 at Pt Temp ABG HCO3 ABG O2 Sat (Measured) ABG O2 Content ABG Base Excess Jase Test Carboxyhemoglobin Methemoglobin Patient On Oxygen O2 Delivery Device Oxygen Flow Rate Vent Mode Vent Rate Mechanical Rate Pressure Support Vent Sodium Potassium Chloride Carbon Dioxide Anion Gap BUN Creatinine Est GFR (CKD-EPI)AfAm Est GFR (CKD-EPI)NonAf POC Glucometer 494 384 Random Glucose Hemoglobin A1c % Lactic Acid Calcium Phosphorus Magnesium Total Bilirubin AST ALT Alkaline Phosphatase Creatine Kinase Troponin I Total Protein Albumin Beta-Hydroxybutyrate Serum , Qual Urine Color Yellow Urine Appearance Cloudy Urine pH 5.0 Ur Specific [place] 1.026 Urine Protein Trace Urine Glucose (UA) 3+ H Urine Ketones 4+ H Urine Blood Negative Urine Nitrite Negative Urine Bilirubin Negative Urine Urobilinogen 0.2 Ur Leukocyte Esterase Negative 05/13/19 05/13/19 05/13/19 14:15 14:54 15:00 WBC RBC Hgb Hct MCV MCH MCHC RDW Plt Count MPV Absolute Neuts (auto) Neutrophils % Neutrophils % (Manual) Band Neutrophils % Lymphocytes % Lymphocytes % (Manual) Monocytes % Monocytes % (Manual) Eosinophils % Eosinophils % (Manual) Basophils % Basophils % (Manual) Myelocytes % (Man) Promyelocytes % (Man) Blast Cells % (Manual) Nucleated RBC % Metamyelocytes Hypochromia Platelet Estimate Polychromasia Poikilocytosis Anisocytosis Microcytosis Macrocytosis Elly Cells Anticoagulation Therapy No Result Required. Puncture Site Right radial ABG pH 7.14 L* ABG pCO2 at Pt Temp 11.9 L* ABG pO2 at Pt Temp 148 H ABG HCO3 3.8 L ABG O2 Sat (Measured) 97.1 ABG O2 Content 19.3 ABG Base Excess -24.1 L Jase Test Positive Carboxyhemoglobin Methemoglobin Patient On Oxygen Yes O2 Delivery Device Nasal Oxygen Flow Rate 2l Vent Mode No Result Required. Vent Rate No Result Required. Mechanical Rate No Result Required. Pressure Support Vent No Result Required. Sodium 139 Potassium 4.4 Chloride 108 H Carbon Dioxide 6 L Anion Gap 25 H BUN 16.2 Creatinine 1.3 Est GFR (CKD-EPI)AfAm 64.20 Est GFR (CKD-EPI)NonAf 55.39 POC Glucometer 344 Random Glucose 413 H* Hemoglobin A1c % Lactic Acid Calcium 8.1 L Phosphorus 3.7 Magnesium Total Bilirubin AST ALT Alkaline Phosphatase Creatine Kinase Troponin I Total Protein Albumin Beta-Hydroxybutyrate Serum , Qual Urine Color Urine Appearance Urine pH Ur Specific [place] Urine Protein Urine Glucose (UA) Urine Ketones Urine Blood Urine Nitrite Urine Bilirubin Urine Urobilinogen Ur Leukocyte Esterase 05/13/19 05/13/19 05/13/19 15:44 16:59 17:55 WBC RBC Hgb Hct MCV MCH MCHC RDW Plt Count MPV Absolute Neuts (auto) Neutrophils % Neutrophils % (Manual) Band Neutrophils % Lymphocytes % Lymphocytes % (Manual) Monocytes % Monocytes % (Manual) Eosinophils % Eosinophils % (Manual) Basophils % Basophils % (Manual) Myelocytes % (Man) Promyelocytes % (Man) Blast Cells % (Manual) Nucleated RBC % Metamyelocytes Hypochromia Platelet Estimate Polychromasia Poikilocytosis Anisocytosis Microcytosis Macrocytosis Colwell Cells Anticoagulation Therapy Puncture Site ABG pH ABG pCO2 at Pt Temp ABG pO2 at Pt Temp ABG HCO3 ABG O2 Sat (Measured) ABG O2 Content ABG Base Excess Jase Test Carboxyhemoglobin Methemoglobin Patient On Oxygen O2 Delivery Device Oxygen Flow Rate Vent Mode Vent Rate Mechanical Rate Pressure Support Vent Sodium Potassium Chloride Carbon Dioxide Anion Gap BUN Creatinine Est GFR (CKD-EPI)AfAm Est GFR (CKD-EPI)NonAf POC Glucometer [phone] Random Glucose Hemoglobin A1c % Lactic Acid Calcium Phosphorus Magnesium Total Bilirubin AST ALT Alkaline Phosphatase Creatine Kinase Troponin I Total Protein Albumin Beta-Hydroxybutyrate Serum , Qual Urine Color Urine Appearance Urine pH Ur Specific [place] Urine Protein Urine Glucose (UA) Urine Ketones Urine Blood Urine Nitrite Urine Bilirubin Urine Urobilinogen Ur Leukocyte Esterase 05/13/19 05/13/19 05/13/19 18:10 18:48 20:02 WBC RBC Hgb Hct MCV MCH MCHC RDW Plt Count MPV Absolute Neuts (auto) Neutrophils % Neutrophils % (Manual) Band Neutrophils % Lymphocytes % Lymphocytes % (Manual) Monocytes % Monocytes % (Manual) Eosinophils % Eosinophils % (Manual) Basophils % Basophils % (Manual) Myelocytes % (Man) Promyelocytes % (Man) Blast Cells % (Manual) Nucleated RBC % Metamyelocytes Hypochromia Platelet Estimate Polychromasia Poikilocytosis Anisocytosis Microcytosis Macrocytosis Colwell Cells Anticoagulation Therapy Puncture Site ABG pH ABG pCO2 at Pt Temp ABG pO2 at Pt Temp ABG HCO3 ABG O2 Sat (Measured) ABG O2 Content ABG Base Excess Jase Test Carboxyhemoglobin Methemoglobin Patient On Oxygen O2 Delivery Device Oxygen Flow Rate Vent Mode Vent Rate Mechanical Rate Pressure Support Vent Sodium 139 Potassium 5.3 H Chloride 110 H Carbon Dioxide 7 L Anion Gap 23 H BUN 15.7 Creatinine 1.4 H Est GFR (CKD-EPI)AfAm 58.70 Est GFR (CKD-EPI)NonAf 50.65 POC Glucometer 294 250 Random Glucose 358 H Hemoglobin A1c % Lactic Acid Calcium 8.2 L Phosphorus 3.9 Magnesium 2.2 Total Bilirubin AST ALT Alkaline Phosphatase Creatine Kinase Troponin I Total Protein Albumin Beta-Hydroxybutyrate Serum , Qual Urine Color Urine Appearance Urine pH Ur Specific [place] Urine Protein Urine Glucose (UA) Urine Ketones Urine Blood Urine Nitrite Urine Bilirubin Urine Urobilinogen Ur Leukocyte Esterase 05/13/19 05/13/19 05/13/19 21:04 21:35 22:18 WBC RBC Hgb Hct MCV MCH MCHC RDW Plt Count MPV Absolute Neuts (auto) Neutrophils % Neutrophils % (Manual) Band Neutrophils % Lymphocytes % Lymphocytes % (Manual) Monocytes % Monocytes % (Manual) Eosinophils % Eosinophils % (Manual) Basophils % Basophils % (Manual) Myelocytes % (Man) Promyelocytes % (Man) Blast Cells % (Manual) Nucleated RBC % Metamyelocytes Hypochromia Platelet Estimate Polychromasia Poikilocytosis Anisocytosis Microcytosis Macrocytosis Colwell Cells Anticoagulation Therapy Puncture Site ABG pH ABG pCO2 at Pt Temp ABG pO2 at Pt Temp ABG HCO3 ABG O2 Sat (Measured) ABG O2 Content ABG Base Excess Jase Test Carboxyhemoglobin Methemoglobin Patient On Oxygen O2 Delivery Device Oxygen Flow Rate Vent Mode Vent Rate Mechanical Rate Pressure Support Vent Sodium 143 Potassium 4.3 Chloride 117 H Carbon Dioxide 11 L Anion Gap 14 BUN 12.2 Creatinine 1.2 Est GFR (CKD-EPI)AfAm 70.73 Est GFR (CKD-EPI)NonAf 61.02 POC Glucometer 179 141 Random Glucose 148 H Hemoglobin A1c % Lactic Acid Calcium 8.0 L Phosphorus 2.2 L Magnesium Total Bilirubin AST ALT Alkaline Phosphatase Creatine Kinase Troponin I Total Protein Albumin Beta-Hydroxybutyrate Serum , Qual Urine Color Urine Appearance Urine pH Ur Specific [place] Urine Protein Urine Glucose (UA) Urine Ketones Urine Blood Urine Nitrite Urine Bilirubin Urine Urobilinogen Ur Leukocyte Esterase 05/13/19 05/14/19 05/14/19 23:16 03:15 04:05 WBC RBC Hgb Hct MCV MCH MCHC RDW Plt Count MPV Absolute Neuts (auto) Neutrophils % Neutrophils % (Manual) Band Neutrophils % Lymphocytes % Lymphocytes % (Manual) Monocytes % Monocytes % (Manual) Eosinophils % Eosinophils % (Manual) Basophils % Basophils % (Manual) Myelocytes % (Man) Promyelocytes % (Man) Blast Cells % (Manual) Nucleated RBC % Metamyelocytes Hypochromia Platelet Estimate Polychromasia Poikilocytosis Anisocytosis Microcytosis Macrocytosis Colwell Cells Anticoagulation Therapy Puncture Site ABG pH ABG pCO2 at Pt Temp ABG pO2 at Pt Temp ABG HCO3 ABG O2 Sat (Measured) ABG O2 Content ABG Base Excess Jase Test Carboxyhemoglobin Methemoglobin Patient On Oxygen O2 Delivery Device Oxygen Flow Rate Vent Mode Vent Rate Mechanical Rate Pressure Support Vent Sodium Potassium Chloride Carbon Dioxide Anion Gap BUN Creatinine Est GFR (CKD-EPI)AfAm Est GFR (CKD-EPI)NonAf POC Glucometer 129 47 154 Random Glucose Hemoglobin A1c % Lactic Acid Calcium Phosphorus Magnesium Total Bilirubin AST ALT Alkaline Phosphatase Creatine Kinase Troponin I Total Protein Albumin Beta-Hydroxybutyrate Serum , Qual Urine Color Urine Appearance Urine pH Ur Specific [place] Urine Protein Urine Glucose (UA) Urine Ketones Urine Blood Urine Nitrite Urine Bilirubin Urine Urobilinogen Ur Leukocyte Esterase 05/14/19 05/14/19 05/14/19 05:15 06:00 06:00 WBC 35.3 H* RBC 3.55 L Hgb 11.4 Hct 34.4 D MCV 97.0 H MCH 32.2 MCHC 33.2 RDW 13.4 Plt Count 436 H D MPV 7.4 L Absolute Neuts (auto) 31.3 H Neutrophils % 88.7 H Neutrophils % (Manual) Band Neutrophils % Lymphocytes % 6.5 L D Lymphocytes % (Manual) Monocytes % 4.6 D Monocytes % (Manual) Eosinophils % 0.0 Eosinophils % (Manual) Basophils % 0.2 Basophils % (Manual) Myelocytes % (Man) Promyelocytes % (Man) Blast Cells % (Manual) Nucleated RBC % 0 Metamyelocytes Hypochromia Platelet Estimate Polychromasia Poikilocytosis Anisocytosis Microcytosis Macrocytosis Colwell Cells Anticoagulation Therapy Puncture Site ABG pH ABG pCO2 at Pt Temp ABG pO2 at Pt Temp ABG HCO3 ABG O2 Sat (Measured) ABG O2 Content ABG Base Excess Jase Test Carboxyhemoglobin Methemoglobin Patient On Oxygen O2 Delivery Device Oxygen Flow Rate Vent Mode Vent Rate Mechanical Rate Pressure Support Vent Sodium 138 Potassium 3.5 Chloride 107 Carbon Dioxide 17 L Anion Gap 14 BUN 7.5 Creatinine 1.0 Est GFR (CKD-EPI)AfAm 88.17 Est GFR (CKD-EPI)NonAf 76.07 POC Glucometer 123 Random Glucose 84 Hemoglobin A1c % Lactic Acid Calcium 7.5 L Phosphorus 2.1 L Magnesium 1.6 L Total Bilirubin 0.5 AST 10 L ALT 14 Alkaline Phosphatase 129 H Creatine Kinase Troponin I Total Protein 5.8 L Albumin 2.6 L Beta-Hydroxybutyrate Serum , Qual Urine Color Urine Appearance Urine pH Ur Specific [place] Urine Protein Urine Glucose (UA) Urine Ketones Urine Blood Urine Nitrite Urine Bilirubin Urine Urobilinogen Ur Leukocyte Esterase 05/14/19 06:00 WBC RBC Hgb Hct MCV MCH MCHC RDW Plt Count MPV Absolute Neuts (auto) Neutrophils % Neutrophils % (Manual) Band Neutrophils % Lymphocytes % Lymphocytes % (Manual) Monocytes % Monocytes % (Manual) Eosinophils % Eosinophils % (Manual) Basophils % Basophils % (Manual) Myelocytes % (Man) Promyelocytes % (Man) Blast Cells % (Manual) Nucleated RBC % Metamyelocytes Hypochromia Platelet Estimate Polychromasia Poikilocytosis Anisocytosis Microcytosis Macrocytosis Colwell Cells Anticoagulation Therapy Puncture Site ABG pH ABG pCO2 at Pt Temp ABG pO2 at Pt Temp ABG HCO3 ABG O2 Sat (Measured) ABG O2 Content ABG Base Excess Jase Test Carboxyhemoglobin Methemoglobin Patient On Oxygen O2 Delivery Device Oxygen Flow Rate Vent Mode Vent Rate Mechanical Rate Pressure Support Vent Sodium Potassium Chloride Carbon Dioxide Anion Gap BUN Creatinine Est GFR (CKD-EPI)AfAm Est GFR (CKD-EPI)NonAf POC Glucometer Random Glucose Hemoglobin A1c % 9.5 H Lactic Acid Calcium Phosphorus Magnesium Total Bilirubin AST ALT Alkaline Phosphatase Creatine Kinase Troponin I Total Protein Albumin Beta-Hydroxybutyrate Serum , Qual Urine Color Urine Appearance Urine pH Ur Specific [place] Urine Protein Urine Glucose (UA) Urine Ketones Urine Blood Urine Nitrite Urine Bilirubin Urine Urobilinogen Ur Leukocyte Esterase Physical Exam: NAD, comfortable . no tachypnia CV: Regular rhythm, tachycardic to 120s , no MRG Lungs: CTAB Abd: soft, NT, ND , hypoactive bowel sounds Ext : No edema or erythema. ASSESSMENT AND PLAN: [place] is an unfortunate 29 y/o lady with h/o of DM I, recurrent admissions for DKA, HTN, HLP, gastroparesis, and other medical problems who presented with ADB pain /N/V x 1 day. She was found to be in DKA and OLEG. 1- DKA: AG closed. hypoglycemic last night. - 10 units of levemir was given last night. - cont SSI , change to ACHS and increase dose - clears for breakfast, regular for lunch - Will decide on long acting once her sugar improves - endocrine consult pending, on when to resume pump 2- OLEG: due to volume depletion .resolved - decrease IVF 3- Hypophosphatemia and hypomagnesemia. replete DVT Px : heparin sq Tx to tele . tachycardic Visit type - Emergency Visit Emergency Visit: Yes ED Registration Date: 05/13/19 Care time: The patient presented to the Emergency Department on the above date and was hospitalized for further evaluation of their emergent condition. - New Patient This patient is new to me today: No - Critical Care Critical Care patient: No
[2019-05-14] MEDS ORDERED: KCL 10 MEQ IVPB 10 MEQ/100 ML INFUS.BAG IVPB SCH (09:30)
[2019-05-14] MEDS ORDERED: MAGNESIUM SULF 50% (8.12 MEQ/2 ML-1 GM VIAL) IVPB ONE (09:45)
--- NOTE | 2019-05-14 09:52 | EKG ---
Test Reason : Blood Pressure : / mmHG Vent. Rate : 137 BPM Atrial Rate : 137 BPM P-R Int : 122 ms QRS Dur : 058 ms QT Int : 304 ms P-R-T Axes : 051 021 036 degrees QTc Int : 459 ms SINUS TACHYCARDIA POSSIBLE LEFT ATRIAL ENLARGEMENT LOW VOLTAGE QRS CANNOT RULE OUT ANTERIOR INFARCT , AGE UNDETERMINED ABNORMAL ECG Confirmed by Angelito Brink MD ([id number]) on 05/14/2019 9:52:17 AM Referred By: Confirmed By:Angelito Brink MD
[2019-05-14 11:35] LABS: PLATELET ESTIMATE ADEQUATE
[2019-05-14] MEDS: MUPIROCIN 2% TOPICAL OINTMENT FOR DECOLONIZATION NS SCH ×2 (11:47→21:48)
[2019-05-14] MEDS: SENNOSIDES 8.6MG TABLET (FP) PO SCH ×2 (11:52→21:49)
[2019-05-14] MEDS: INSULIN SLIDING SCALE (NOVOLOG) 1 VIAL SQ SCH ×3 (12:07→21:49)
[2019-05-14 16:47] LABS: BLOOD UREA NITROGEN 3.8 mg/dL (7-18); CALCIUM 7.8 mg/dL (8.5-10.1); CREATININE 0.8 mg/dL (0.55-1.3); MAGNESIUM 2.3 mg/dL (1.8-2.4); PHOSPHOROUS 2.2 mg/dL (2.5-4.9)
[2019-05-14] MEDS: CHLORHEXIDINE GLUCONATE 4% CLEANSER FOR DECOLONIZATION TP SCH (21:48)
[2019-05-14] MEDS: MAG HYDROX/AL HYDROX/SIMETH 30 ML UNIT-DOSE CUP PO PRN (22:00)
[2019-05-14] MEDS ORDERED: INSULIN (LEVEMIR) 100 UNITS/ML UNITS SQ SCH (22:00)
--- NOTE | 2019-05-14 22:24 | CONSULT ---
Consult Consult Specialty:: Endocrine Referred by:: Jackie Meadows DO Reason for Consultation:: DKA - History of Present Illness History of Present Illness: 29 year old female with a past medical history of type DMT1, prior history of DKA, diabetic gastroparesis, HTN, HLD who is presented with episodes of nausea and vomiting. She stated woke up and found insulin pump was not delivering inulin and bs was elevated,above 400mg/dl she felt nauseas and vomited several times,at times bloody vomit and felt weak unable to sustain and food or liquids.she wears medtronic 670g,insulin pump. she has long history of labile blood sugars despite insulin pump and frequent checking of blood sugars,it takes little disturbance that throws her into dka.she denies fever chills,or diarhea - Past Medical History Gastrointestinal: Yes: Constipation, Pancreatitis, Other (Diabetic Gastroparesis) ...LMP: 03/06/18 ...: No Psych: Yes: Anxiety, Depression Endocrine: Yes: Diabetes Mellitus (type 1), Other (dka) - Past Surgical History Past Surgical History: Yes: Upper Endoscopy ( spring 2013 diabetic gastroparesis) - Alcohol/Substance Use Hx Alcohol Use: No History of Substance Use: reports: Marijuana - Smoking History Smoking history: Current every day smoker Have you smoked in the past 12 months: Yes Aproximately how many cigarettes per day: 20 - Social History ADL: Independent 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 History of Recent Travel: No Home Medications - Allergies Allergies/Adverse Reactions: Allergies Allergy/AdvReac Type Severity Reaction Status Date / Time No Known Allergies Allergy Verified 05/13/19 10:38 - Home Medications Home Medications: Ambulatory Orders Amitriptyline HCl [Elavil -] 75 mg PO HS 05/13/19 Famotidine 20 mg PO BID 05/13/19 Insulin (Novolog) [Novolog Vial] 100 units SQ ASDIR 05/13/19 Medroxyprogesterone Acetate [Depo-Provera] 150 mg IM MONTHLY 05/13/19 Metoclopramide HCl [Reglan] 5 mg PO BID 05/13/19 Review of Systems - Review of Systems Constitutional: reports: Weakness Eyes: reports: Blurred Vision HENT: reports: No Symptoms Neck: reports: No Symptoms Cardiovascular: reports: No Symptoms Respiratory: reports: Exercise Intolerance, SOB on Exertion Gastrointestinal: reports: Abdominal Pain Genitourinary: reports: Frequency Musculoskeletal: reports: No Symptoms Integumentary: reports: No Symptoms Neurological: reports: No Symptoms Endocrine: reports: No Symptoms Hematology/Lymphatic: reports: No Symptoms Physical Exam Vital Signs: Vital Signs Temperature 98.7 F 05/14/19 21:55 Pulse Rate 109 H 05/14/19 21:55 Respiratory Rate 20 05/14/19 21:55 Blood Pressure 128/75 05/14/19 21:55 O2 Sat by Pulse Oximetry (%) 99 05/14/19 21:00 Constitutional: Yes: Calm Eyes: Yes: EOM Intact HENT: Yes: Normocephalic Neck: Yes: Trachea Midline Cardiovascular: Yes: Regular Rate and Rhythm Respiratory: Yes: CTA Bilaterally Gastrointestinal: Yes: Normal Bowel Sounds ...Rectal Exam: Yes: Deferred Renal/: Yes: Anuria Breast(s): Yes: WNL Extremities: Yes: WNL Neurological: Yes: Alert, Oriented Labs: CBC, BMP 05/14/19 06:00 05/14/19 16:05 Problem List - Problems (1) OLEG (acute kidney injury) Problems reviewed: Yes (2) Abdominal pain Problems reviewed: Yes Qualifiers: Qualified Code(s): R10.13 - Epigastric pain (3) DKA (diabetic ketoacidoses) Problems reviewed: Yes Code(s): E11.10 - TYPE 2 DIABETES MELLITUS WITH KETOACIDOSIS WITHOUT COMA Qualifiers: (4) Dehydration Problems reviewed: Yes (5) Epigastric abdominal pain Problems reviewed: Yes Code(s): R10.13 - EPIGASTRIC PAIN (6) Gastroparesis Problems reviewed: Yes Code(s): K31.84 - GASTROPARESIS (7) Hyperglycemia Problems reviewed: Yes Code(s): R73.9 - HYPERGLYCEMIA, UNSPECIFIED (8) Hypertension Code(s): I10 - ESSENTIAL (PRIMARY) HYPERTENSION Assessment/Plan diabetic keto acidosis dehydration hyperglycemia oleg htn hld diabetic gastroparesis Laboratory Results - last 24 hr 05/13/19 05/13/19 05/13/19 21:35 22:18 23:16 WBC RBC Hgb Hct MCV MCH MCHC RDW Plt Count MPV Absolute Neuts (auto) Neutrophils % Neutrophils % (Manual) Band Neutrophils % Lymphocytes % Lymphocytes % (Manual) Monocytes % Monocytes % (Manual) Eosinophils % Eosinophils % (Manual) Basophils % Basophils % (Manual) Nucleated RBC % Platelet Estimate Sodium 143 Potassium 4.3 Chloride 117 H Carbon Dioxide 11 L Anion Gap 14 BUN 12.2 Creatinine 1.2 Est GFR (CKD-EPI)AfAm 70.73 Est GFR (CKD-EPI)NonAf 61.02 POC Glucometer 141 129 Random Glucose 148 H Hemoglobin A1c % Calcium 8.0 L Phosphorus 2.2 L Magnesium Total Bilirubin AST ALT Alkaline Phosphatase Total Protein Albumin 05/14/19 05/14/19 05/14/19 03:15 04:05 05:15 WBC RBC Hgb Hct MCV MCH MCHC RDW Plt Count MPV Absolute Neuts (auto) Neutrophils % Neutrophils % (Manual) Band Neutrophils % Lymphocytes % Lymphocytes % (Manual) Monocytes % Monocytes % (Manual) Eosinophils % Eosinophils % (Manual) Basophils % Basophils % (Manual) Nucleated RBC % Platelet Estimate Sodium Potassium Chloride Carbon Dioxide Anion Gap BUN Creatinine Est GFR (CKD-EPI)AfAm Est GFR (CKD-EPI)NonAf POC Glucometer 47 154 123 Random Glucose Hemoglobin A1c % Calcium Phosphorus Magnesium Total Bilirubin AST ALT Alkaline Phosphatase Total Protein Albumin 05/14/19 05/14/19 05/14/19 06:00 06:00 06:00 WBC 35.3 H* RBC 3.55 L Hgb 11.4 Hct 34.4 D MCV 97.0 H MCH 32.2 MCHC 33.2 RDW 13.4 Plt Count 436 H D MPV 7.4 L Absolute Neuts (auto) 31.3 H Neutrophils % 88.7 H Neutrophils % (Manual) 83.0 H Band Neutrophils % 4.0 Lymphocytes % 6.5 L D Lymphocytes % (Manual) 9.0 D Monocytes % 4.6 D Monocytes % (Manual) 4 D Eosinophils % 0.0 Eosinophils % (Manual) 0.0 Basophils % 0.2 Basophils % (Manual) 0.0 Nucleated RBC % 0 Platelet Estimate Adequate Sodium 138 Potassium 3.5 Chloride 107 Carbon Dioxide 17 L Anion Gap 14 BUN 7.5 Creatinine 1.0 Est GFR (CKD-EPI)AfAm 88.17 Est GFR (CKD-EPI)NonAf 76.07 POC Glucometer Random Glucose 84 Hemoglobin A1c % 9.5 H Calcium 7.5 L Phosphorus 2.1 L Magnesium 1.6 L Total Bilirubin 0.5 AST 10 L ALT 14 Alkaline Phosphatase 129 H Total Protein 5.8 L Albumin 2.6 L 05/14/19 05/14/19 05/14/19 08:48 12:01 16:05 WBC RBC Hgb Hct MCV MCH MCHC RDW Plt Count MPV Absolute Neuts (auto) Neutrophils % Neutrophils % (Manual) Band Neutrophils % Lymphocytes % Lymphocytes % (Manual) Monocytes % Monocytes % (Manual) Eosinophils % Eosinophils % (Manual) Basophils % Basophils % (Manual) Nucleated RBC % Platelet Estimate Sodium 133 L Potassium 4.0 Chloride 103 Carbon Dioxide 17 L Anion Gap 13 BUN 3.8 L Creatinine 0.8 Est GFR (CKD-EPI)AfAm 115.47 Est GFR (CKD-EPI)NonAf 99.63 POC Glucometer 91 179 Random Glucose 210 H Hemoglobin A1c % Calcium 7.8 L Phosphorus 2.2 L Magnesium 2.3 Total Bilirubin AST ALT Alkaline Phosphatase Total Protein Albumin 05/14/19 05/14/19 16:30 21:28 WBC RBC Hgb Hct MCV MCH MCHC RDW Plt Count MPV Absolute Neuts (auto) Neutrophils % Neutrophils % (Manual) Band Neutrophils % Lymphocytes % Lymphocytes % (Manual) Monocytes % Monocytes % (Manual) Eosinophils % Eosinophils % (Manual) Basophils % Basophils % (Manual) Nucleated RBC % Platelet Estimate Sodium Potassium Chloride Carbon Dioxide Anion Gap BUN Creatinine Est GFR (CKD-EPI)AfAm Est GFR (CKD-EPI)NonAf POC Glucometer 223 160 Random Glucose Hemoglobin A1c % Calcium Phosphorus Magnesium Total Bilirubin AST ALT Alkaline Phosphatase Total Protein Albumin plan: bgm qachs levemir 15 units am levemir 10units hs will need titration as diet improve gi consultation
[2019-05-15] MEDS ORDERED: DOCUSATE SODIUM 100 MG CAPSULE (FP) PO PRN (02:29)
[2019-05-15] MEDS ORDERED: ACETAMINOPHEN 325 MG TABLET (FP) PO PRN (02:29)
[2019-05-15] MEDS: HEPARIN NA (PORCINE) 5,000 UNITS/ML 1ML VIAL SQ SCH ×2 (06:20→14:37)
[2019-05-15] MEDS: INSULIN SLIDING SCALE (NOVOLOG) 1 VIAL SQ SCH ×2 (06:24→11:43)
[2019-05-15] MEDS ORDERED: INSULIN (LEVEMIR) 100 UNITS/ML UNITS SQ SCH ×2 (07:00)
[2019-05-15 07:38] LABS: BASO % 0.3 % (0-2.0); EOS % 0.1 % (0-4.5); HEMATOCRIT 34.4 % (32.4-45.2); HEMOGLOBIN 11.8 GM/dL (10.7-15.3); LYMPH % 13.9 % (8-40); MCH 32.5 pg (25.7-33.7); MCHC 34.2 g/dl (32.0-36.0); MEAN CELL VOLUME 94.9 fl (80-96); MEAN PLT VOLUME 7.2 fl (7.5-11.1); MONO % 4.1 % (3.8-10.2); NEUT % 81.6 % (42.8-82.8); PLATELET COUNT 390 K/MM3 (134-434); RBC 3.63 M/mm3 (3.60-5.2); WHITE BLOOD COUNT 16.3 K/mm3 (4.0-10.0)
[2019-05-15 08:05] LABS: BLOOD UREA NITROGEN 4.3 mg/dL (7-18); CALCIUM 8.3 mg/dL (8.5-10.1); CREATININE 0.7 mg/dL (0.55-1.3); POTASSIUM 4.1 mmol/L (3.5-5.1)
[2019-05-15] MEDS ORDERED: SENNOSIDES 8.6MG TABLET (FP) PO SCH (10:00)
[2019-05-15] MEDS ORDERED: MUPIROCIN 2% TOPICAL OINTMENT FOR DECOLONIZATION NS SCH (10:00)
[2019-05-15 11:31] VITALS: BMI 29.6
[2019-05-15] MEDS ORDERED: INSULIN (NOVOLOG) ASPART 100 UNITS/ML 10ML VIAL ONE (11:33)
[2019-05-15] MEDS: MAG HYDROX/AL HYDROX/SIMETH 30 ML UNIT-DOSE CUP PO PRN (11:45)
--- NOTE | 2019-05-15 12:02 | CONSULT ---
Admitting History and Physical - Primary Care Physician PCP: Sunni Chappell - Admission History of Present Illness: 29 year old female with a past medical history of type 1 DM with episodes of DKA, recurrent UTIs, gastroparesis, HTN, HLD admitted for diabetic ketoacidosis Per 05/13 nursing note-patient place on diabetic diet ,eating small amount , c/o discomfort down to the esophagus when she swallows the food, Maalox ordered.. Upper Endoscopy (spring diabetic gastroparesis)- Pending GI consult Selected Entries 05/14/19 05/14/19 05/14/19 06:00 10:00 18:00 Breakfast Supper Temperature 98.4 F 97.9 F 98.2 F 05/14/19 05/14/19 05/15/19 21:00 21:55 01:00 Breakfast Supper 25% Temperature 98.7 F 98.3 F 05/15/19 05/15/19 05/15/19 06:03 09:41 10:15 Breakfast 25% Supper Temperature 98.1 F 98.3 F Laboratory Tests 05/13/19 05/14/19 05/15/19 11:00 06:00 06:00 WBC 37.4 H* 35.3 H* 16.3 H Pt reports she throws up every couple of months "acid" and then has symptoms of discomfort swallowing afterwards, in her chest, like she is "swallowing rocks". She is on Reglan. Followed by GI once yearly, and she is due to be seen. She has had symptoms of Dysphagia for last 2 months after throwing up, and have worsened since tjis admission. Diet order- reg diet/thin liquids- She could not tolerate meatloaf last night. Doing better with soups and oatmeal, but still with symptoms. She drinks during meals to wash food down and maintains upright posture after meals. History Source: Patient Limitations to Obtaining History: No Limitations - Past Medical History Gastrointestinal: Yes: Constipation, Pancreatitis, Other (Diabetic Gastroparesis) ...LMP: 03/06/18 ...: No Psych: Yes: Anxiety, Depression Endocrine: Yes: Diabetes Mellitus (type 1), Other (dka) - Past Surgical History Past Surgical History: Yes: Upper Endoscopy (spring diabetic gastroparesis) - Smoking History Smoking history: Current every day smoker Have you smoked in the past 12 months: Yes Aproximately how many cigarettes per day: 20 - Alcohol/Substance Use Hx Alcohol Use: No History of Substance Use: reports: Marijuana - Social History ADL: Independent 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 History of Recent Travel: No History - Admission Reason For Visit: DIABETIC KETOACIDOSIS - Diagnostics X-ray: Report Reviewed - General Mental Status: Alert and Oriented, Awake and Alert, Able to Follow Commands Attention: Intact Ability to Follow Directions: Excellent Head/Neck Control: WFL - Hearing Hearing: Functional Speech Evaluation - Communication Primary Language: ESTONIAN Communication: Yes: Within Normal Limits Oral Expression Ability: Yes: No Impairment - Speech Production Able to Make Needs Known: Yes: WNL Intelligibility: Yes: WNL - Speech Characteristics Voice Loudness: Normal Voice Pitch: Yes: Normal Voice Phonatory-based Quality: Yes: Normal Speech Clarity: < 100% Nasal Resonance: Normal Articulation: Yes: Precise Rate of Speech: Intact - Language/Auditory Comprehension Follows: Yes: 2 Stage Simple Commands - Language/Verbal Expression Able to Respond to Simple Queries: Yes: WNL Able to Communicate Wants and Needs: Yes: WNL Functional Communication Status: Yes: WNL - Memory/Perception intermediate accountant Memory: Yes: WNL Short Term Memory: Yes: WNL - Swallow Evaluation/Bedside Assessment Current Nutritional Intake: Regular, Thin Liquids, Other (eating soup, softer items on tray. Difficulty with meatloaf last night) Oral Secretions: Yes: WFL (no oral thrush identified) Dentition: Yes: Adequate Facial Symmetry at Rest: Symmetrical Facial Symmetry on Retraction: Symmetrical Against Resistance Opening: Normal Against Resistance Closing: Normal Pucker Lips: Normal Smile: Normal Lingual Movement: Normal, Symmetric Lingual Speed of Movement: Normal Lingual Movement Strgth Against Opposition: Normal Lingual Movement Characteristics: Normal Laryngeal Elevation: WFL Laryngeal Movement: Able to Palpate Rate of Intake: WFL Bolus Size: WFL Chewing: WFL Oral Prep Time: WFL A-P Transit: WFL Pocketing: None Timing of Swallow: WFL Odynophagia: Esophageal Coughing/Throat Clear: No Change in Voice: No Recommendations - Speech Evaluation, Impression/Plan Impression: Esophageal dyscomfort, "feels like rocks", with solids. Gastroparesis. Oral-pharyngeal swallow WNL. Esophageal Dysphagia/Odynophagia. -GI consult placed-ddx structure +/or function - Dysphagia Impressions/Plan Dysphagia Impressions: Ongoing Evaluation *Silent aspiration: cannot be R/O at bedside Dysphagia Treatment Plan: OOB for meals, Other (Upright for 2 hr after meals, No PO for 3 hr before bedtime. GERD precautions) Recommendations: GI Consult, Other (Drink before po foods initiated, alternate solids with liquids, Complete meals with liquids. Reduce/eliminate caffiene/carbonation/citrus/spicy/tomatoes) - Recommendations Diet Consistency: Regular (Very soft, easy to chew foods, menu selection.) Liquids: Thin Liquids
--- NOTE | 2019-05-15 13:19 | CON.GI ---
Consult Consult Specialty:: GI Referred by:: Medicine Reason for Consultation:: gastroparesis - History of Present Illness Chief Complaint: N/V History of Present Illness: 29F with h/o type 1 DM c/b gastroparesis, admitted for hyperglycemia/DKA after pump came out overnight. Came in with N/V and reportedly vomit was black. GI con sulted for further management. Denies black stool. Hyperglycemia has been treated and improved; is tolerating regular diet. Reports odynophagia - like rocks going down throat. Denies dysphagia. Reports similar incident 2 months ago that self resolved, but took weeks. At baseline takes famotidine and reglan and amitryptiline. No abdominal pain. Pt follows GI with Dr. Damon Singh at [facility]. - History Source History Provided By: Patient Limitations to Obtaining History: No Limitations - Past Medical History Gastrointestinal: Yes: Constipation, Pancreatitis, Other (Diabetic Gastroparesis) ...LMP: 03/06/18 ...: No Psych: Yes: Anxiety, Depression Endocrine: Yes: Diabetes Mellitus (type 1), Other (dka) - Past Surgical History Past Surgical History: Yes: Upper Endoscopy (spring diabetic gastroparesis) - Alcohol/Substance Use Hx Alcohol Use: No History of Substance Use: reports: Marijuana - Smoking History Smoking history: Current every day smoker Have you smoked in the past 12 months: Yes Aproximately how many cigarettes per day: 20 - Social History ADL: Independent 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 History of Recent Travel: No Home Medications - Allergies Allergies/Adverse Reactions: Allergies Allergy/AdvReac Type Severity Reaction Status Date / Time No Known Allergies Allergy Verified 05/13/19 10:38 - Home Medications Home Medications: Ambulatory Orders Amitriptyline HCl [Elavil -] 75 mg PO HS 05/13/19 Famotidine 20 mg PO BID 05/13/19 Insulin (Novolog) [Novolog Vial] 100 units SQ ASDIR 05/13/19 Medroxyprogesterone Acetate [Depo-Provera] 150 mg IM MONTHLY 05/13/19 Metoclopramide HCl [Reglan] 5 mg PO BID 05/13/19 Family Medical History Family History: Unremarkable Review of Systems - Review of Systems Constitutional: reports: No Symptoms Eyes: reports: No Symptoms HENT: reports: No Symptoms Neck: reports: No Symptoms Cardiovascular: reports: No Symptoms Respiratory: reports: No Symptoms Gastrointestinal: reports: Nausea, Vomiting, Vomiting Blood. denies: Abdominal Pain Musculoskeletal: reports: No Symptoms Integumentary: reports: No Symptoms Neurological: reports: No Symptoms Endocrine: reports: No Symptoms Hematology/Lymphatic: reports: No Symptoms Psychiatric: reports: No Symptoms Physical Exam-GI Vital Signs: Vital Signs Temperature 98.3 F 05/15/19 09:41 Pulse Rate 107 H 05/15/19 09:41 Respiratory Rate 16 05/15/19 09:41 Blood Pressure 133/87 05/15/19 09:41 O2 Sat by Pulse Oximetry (%) 99 05/14/19 21:00 Constitutional: Yes: Well Nourished, No Distress Eyes: Yes: Conjunctiva Clear HENT: Yes: Atraumatic, Normocephalic Cardiovascular: Yes: Regular Rate and Rhythm Respiratory: Yes: CTA Bilaterally ...Palpate: Yes: Soft. No: Tenderness ...Rectal Exam: Yes: Deferred Musculoskeletal: Yes: WNL Extremities: Yes: WNL Edema: No Neurological: Yes: Alert, Oriented Psychiatric: Yes: Alert, Oriented Labs: CBC, BMP 05/15/19 06:00 05/15/19 06:00 Assessment/Plan Suspect erosive esophagitis from repeated emesis Recommend BID PPI for 8 weeks Carafate susp 1g QID PRN Should follow up with Dr. Singh upon discharge
[2019-05-15 13:40] VITALS: BP 128/73; PULSE 81; TEMP 98
[2019-05-15] MEDS ORDERED: SUCRALFATE 1 GM/10 ML UNIT DOSE CUPS PO SCH (14:00)
--- NOTE | 2019-05-15 14:22 | PN ---
Teaching Attending Note Name of Resident: Patty Scruggs ATTENDING PHYSICIAN STATEMENT I saw and evaluated the patient. I reviewed the resident's note and discussed the case with the resident. I agree with the resident's findings and plan as documented. SUBJECTIVE: no pain , no N/V, no MOONEY . has discomfort in esophagus when she eats solid food not with liquids . no N/V. she feels better OBJECTIVE: Physical Exam: NAD, comfortable . CV: RRRs , no MRG Lungs: CTAB Abd: soft, NT, ND, NL BS Ext : No edema or erythema. ASSESSMENT AND PLAN: [place] is an unfortunate 29 y/o lady with h/o of DM I, recurrent admissions for DKA, HTN, HLP, gastroparesis, and other medical problems who presented with Abd pain /N/V x 1 day. She was found to be in DKA and OLEG. 1- DKA: resolved. - sugar started rising. Recs from endocrine to give 15 units of levemir in am and 10 in evening. - due to patient wanting to leave AMA , she was advised to use 20 units of Levemir BID and SSI . she back not want to use the pump anyway - f/u with Dr. Martinez 2- OLEG: due to volume depletion .resolved - decrease IVF 3- Odynophagia: likely due to esophageal irritation form vomiting. GI input appreciated. speech eval appreciated. - PPi and carafate plan to monitor one more day to adjust insulin regimen . patient wants to sign AMA . risks of leaving prematurely were d/w her by Dr. Scruggs.
--- NOTE | 2019-05-15 16:26 | DS ---
Physical Exam: SUBJECTIVE: Patient seen and examined this AM. No acute events overnight as per nursing staff. This AM patient is refusing sliding scale coverage. Additionally complains of nausea without vomiting, and pain with swallowing. Patient was able to tolerate clear diet an had a BM overnight. OBJECTIVE: Vital Signs Period Temp Pulse Resp BP Sys/Plata Pulse Ox Last 24 Hr 98 F-98.7 F 81-113 16-23 128-169/73-98 99-100 PHYSICAL EXAM GENERAL: A&Ox3, NAD HEAD: NCAT EYES: PERRL, EOMI ENT: MMM LUNGS: CTAB, No wheezes, No crackles. HEART: RRR, normal S1 and S2 ABDOMEN: Soft, Nontender, nondistended, + bowel sounds, no guarding EXTREMITIES: No edema. NEUROLOGICAL: Cranial nerves II-XII intact. SKIN: Warm, dry LABS Laboratory Last Values WBC 16.3 K/mm3 (4.0-10.0) H 05/15/19 06:00 RBC 3.63 M/mm3 (3.60-5.2) 05/15/19 06:00 Hgb 11.8 GM/dL (10.7-15.3) 05/15/19 06:00 Hct 34.4 % (32.4-45.2) 05/15/19 06:00 MCV 94.9 fl (80-96) 05/15/19 06:00 MCH 32.5 pg (25.7-33.7) 05/15/19 06:00 MCHC 34.2 g/dl (32.0-36.0) 05/15/19 06:00 RDW 13.0 % (11.6-15.6) 05/15/19 06:00 Plt Count 390 K/MM3 (134-434) 05/15/19 06:00 MPV 7.2 fl (7.5-11.1) L 05/15/19 06:00 Absolute Neuts (auto) 13.3 K/mm3 (1.5-8.0) H 05/15/19 06:00 Neutrophils % 81.6 % (42.8-82.8) 05/15/19 06:00 Neutrophils % (Manual) 83.0 % (42.8-82.8) H 05/14/19 06:00 Band Neutrophils % 4.0 % 05/14/19 06:00 Lymphocytes % 13.9 % (8-40) D 05/15/19 06:00 Lymphocytes % (Manual) 9.0 % (8-40) D 05/14/19 06:00 Monocytes % 4.1 % (3.8-10.2) 05/15/19 06:00 Monocytes % (Manual) 4 % (3.8-10.2) D 05/14/19 06:00 Eosinophils % 0.1 % (0-4.5) D 05/15/19 06:00 Eosinophils % (Manual) 0.0 % (0-4.5) 05/14/19 06:00 Basophils % 0.3 % (0-2.0) 05/15/19 06:00 Basophils % (Manual) 0.0 % (0-2.0) 05/14/19 06:00 Myelocytes % (Man) 0 % (0-2) 05/13/19 11:00 Promyelocytes % (Man) 0 % (0-2) 05/13/19 11:00 Blast Cells % (Manual) 0 % (0-0) 05/13/19 11:00 Nucleated RBC % 0 % (0-0) 05/15/19 06:00 Metamyelocytes 0 % (0-2) 05/13/19 11:00 Hypochromia 0 05/13/19 11:00 Platelet Estimate Adequate 05/14/19 06:00 Polychromasia 1+ 05/13/19 11:00 Poikilocytosis 0 05/13/19 11:00 Anisocytosis 1+ 05/13/19 11:00 Microcytosis 0 05/13/19 11:00 Macrocytosis 1+ 05/13/19 11:00 [place] Cells 1+ 05/13/19 11:00 Anticoagulation Therapy No Result Required. 05/13/19 14:15 Puncture Site Right radial 05/13/19 14:15 ABG pH 7.14 (7.35-7.45) L* 05/13/19 14:15 ABG pCO2 at Pt Temp 11.9 mmHg (35-45) L* 05/13/19 14:15 ABG pO2 at Pt Temp 148 mmHg (80-100) H 05/13/19 14:15 ABG HCO3 3.8 mmol/L (22-27) L 05/13/19 14:15 ABG O2 Sat (Measured) 97.1 % (95-98) 05/13/19 14:15 ABG O2 Content 19.3 % vol 05/13/19 14:15 ABG Base Excess -24.1 meq/l (-2-2) L 05/13/19 14:15 Jase Test Positive 05/13/19 14:15 Carboxyhemoglobin 1.2 % (0-2) 05/13/19 11:00 Methemoglobin 1.3 % (0-2) 05/13/19 11:00 Patient On Oxygen Yes 05/13/19 14:15 O2 Delivery Device Nasal 05/13/19 14:15 Oxygen Flow Rate 2l 05/13/19 14:15 Vent Mode No Result Required. 05/13/19 14:15 Vent Rate No Result Required. 05/13/19 14:15 Mechanical Rate No Result Required. 05/13/19 14:15 Pressure Support Vent No Result Required. 05/13/19 14:15 Sodium 134 mmol/L (136-145) L 05/15/19 06:00 Potassium 4.1 mmol/L (3.5-5.1) 05/15/19 06:00 Chloride 104 mmol/L (98-107) 05/15/19 06:00 Carbon Dioxide 23 mmol/L (21-32) 05/15/19 06:00 Anion Gap 8 MMOL/L (8-16) 05/15/19 06:00 BUN 4.3 mg/dL (7-18) L 05/15/19 06:00 Creatinine 0.7 mg/dL (0.55-1.3) 05/15/19 06:00 Est GFR (CKD-EPI)AfAm 135.70 05/15/19 06:00 Est GFR (CKD-EPI)NonAf 117.08 05/15/19 06:00 POC Glucometer 175 UNITS (80-120) 05/15/19 14:34 Random Glucose 190 mg/dL (74-106) H 05/15/19 06:00 Hemoglobin A1c % 9.5 % (4.2-6.3) H 05/14/19 06:00 Lactic Acid 1.9 mmol/L (0.4-2.0) 05/13/19 11:00 Calcium 8.3 mg/dL (8.5-10.1) L 05/15/19 06:00 Phosphorus 2.2 mg/dL (2.5-4.9) L 05/14/19 16:05 Magnesium 2.3 mg/dL (1.8-2.4) 05/14/19 16:05 Total Bilirubin 0.5 mg/dL (0.2-1) 05/14/19 06:00 AST 10 U/L (15-37) L 05/14/19 06:00 ALT 14 U/L (13-61) 05/14/19 06:00 Alkaline Phosphatase 129 U/L (45-117) H 05/14/19 06:00 Creatine Kinase 54 U/L (26-192) 05/13/19 11:00 Troponin I < 0.02 ng/ml (0.00-0.05) 05/13/19 11:00 Total Protein 5.8 g/dl (6.4-8.2) L 05/14/19 06:00 Albumin 2.6 g/dl (3.4-5.0) L 05/14/19 06:00 Beta-Hydroxybutyrate 139.7 mg/dL (0.2-2.8) H 05/13/19 11:00 Serum , Qual Negative 05/13/19 11:00 Urine Color Yellow 05/13/19 13:00 Urine Appearance Cloudy 05/13/19 13:00 Urine pH 5.0 (5.0-8.0) 05/13/19 13:00 Ur Specific [place] 1.026 (1.010-1.035) 05/13/19 13:00 Urine Protein Trace (NEGATIVE) 05/13/19 13:00 Urine Glucose (UA) 3+ (NEGATIVE) H 05/13/19 13:00 Urine Ketones 4+ (NEGATIVE) H 05/13/19 13:00 Urine Blood Negative (NEGATIVE) 05/13/19 13:00 Urine Nitrite Negative (NEGATIVE) 05/13/19 13:00 Urine Bilirubin Negative (NEGATIVE) 05/13/19 13:00 Urine Urobilinogen 0.2 mg/dL (0.2-1.0) 05/13/19 13:00 Ur Leukocyte Esterase Negative (NEGATIVE) 05/13/19 13:00 Microbiology 05/13/19 11:15 Blood - Peripheral Venous Blood Culture - Preliminary NO GROWTH OBTAINED AFTER 48 HOURS, INCUBATION TO CONTINUE FOR 3 DAYS. 05/13/19 11:00 Blood - Peripheral Venous Blood Culture - Preliminary NO GROWTH OBTAINED AFTER 48 HOURS, INCUBATION TO CONTINUE FOR 3 DAYS. 05/13/19 13:00 Urine - Urine Clean Catch Urine Culture - Final Normal Urogenital Megan HOSPITAL COURSE: Date of Admission:05/13/19 Date of Discharge: 05/15/19 29 y/o F with PMHx T1DM (Multiple prior admissions for DKA), recurrent UTIs, [facility] HTN, HLD presented to [facility] with episodes of nausea and vomiting after her insulin pump dislodged and remained disconnected overnight. During her ED course, patient was found to be in DKA and amitted to ICU. Endocrinology and GI were consulted. She was fluid resuscitated and started on an Insulin drip with close monitoring of electrolytes, blood glucose and anion gap. Upon closure of her anion gap, she was started on long acting insulin as per DKA protocol, with dose adjustment per endocrinology. Her gap remained closed and her DKA resolved however upon PO intake, patient complained of difficulty swallowing for which GI was consulted and recommended PPI with outpatient GI Followup. Her OLEG improved with IVF, electrolytes were repleted and leukocytosis improved. Despite a very lengthy discussion, patient was persistent and wanted to leave AMA. The risks of leaving and benefits of medical attention were explained in great detail; patient continued to mention that her daughter requires care and her employment will suffer. Patient was advised to increase her long acting insulin to 20u BID and to continue an ISS. She mentions having an appointment with Dr. Martinez in one week. She was again adivsed to return if any sx's develop. She signed AMA form and left the premesis. Patient mentions having Long acting insulin and ISS. Minutes to complete discharge: 36 Discharge Summary Problems reviewed: Yes Reason For Visit: DIABETIC KETOACIDOSIS Condition: Stable - Instructions Diet, Activity, Other Instructions: You presented to the hospital with nausea and vomiting and were found to be in DKA. Medication Changes: 1. Please stop using your insulin pump until you follow up with Dr. Martinez 2. Start using Levemir 20 units twice a day, can continue insulin sliding scale coverage. 3. Start Protonix twice a day for 8 weeks 4. Start Carafate susp 1g 4 times a day as needed Follow up with the following physicians: 1. PCP in one week, please call to schedule follow up to further manage your diabetes 2. Pipeline Construction Inspector SOON POSSIBLE; YOU MUST KEEP YOUR APPOINTMENT NEXT WEEK. 3. Skills Trainer in two weeks, Please call to schedule follow up to further manage your gastroparesis. Follow up labs: 1. a1c in 3 months once your blood glucose is better controlled 2. Phosphorous level in 1 week, Please discuss further with your PCP Please continue to monitor your diet as you need to intake less sugar and drink plenty of fluids. Continue all your other medications as prescribed Please return to the ER if you have any signs or symptoms of chest pain, shortness of breath, uncontrollable fever, chills, nausea, vomiting, numbness, tingling, or weakness in any part of your body, changes in vision, or slurred speech. Please return to the ER if symptoms persist, worsen, or new symptoms arise. Referrals: Clare Acevedo MD [Primary Care Provider] - Rocky Martinez MD [Staff Physician] - Disposition: AGAINST MEDICAL ADVICE - Home Medications Comprehensive Discharge Medication List: Ambulatory Orders Amitriptyline HCl [Elavil -] 75 mg PO HS 05/13/19 Famotidine 20 mg PO BID 05/13/19 Medroxyprogesterone Acetate [Depo-Provera -] 150 mg IM MONTHLY 05/13/19 Metoclopramide HCl [Reglan] 5 mg PO BID 05/13/19 Insulin (Levemir) [Levemir Vial] 20 units SQ BID #0 vial 05/15/19 Insulin Sliding Scale [Novolog Vial Sliding Scale -] 1 vial SQ ACHS units 05/15/19 Pantoprazole Sodium [Protonix -] 40 mg PO BID #60 tablet.ec 05/15/19 Sucralfate Oral Suspension [Carafate Oral Suspension -] 1 gm PO QID #1 tube 05/15/19 This patient is new to me today: Yes Date on this admission: 05/15/19 Emergency Visit: Yes ED Registration Date: 05/13/19 Care time: The patient presented to the Emergency Department on the above date and was hospitalized for further evaluation of their emergent condition. Critical Care patient: No - Discharge Referral Referred to [facility] No ATTENDING PHYSICIAN STATEMENT I saw and evaluated the patient. I reviewed the resident's note and discussed the case with the resident. I agree with the resident's findings and plan as documented. SUBJECTIVE: OBJECTIVE: ASSESSMENT AND PLAN:
[2019-05-15] MEDS ORDERED: PANTOPRAZOLE 40 MG TABLET PO SCH (22:00)
[2019-05-15] MEDS ORDERED: CHLORHEXIDINE GLUCONATE 4% CLEANSER FOR DECOLONIZATION TP SCH (22:00)
== END 2019-05-15 15:25 | disposition left against medical advice (07) | DRG 420 ==
LOC: JER 10:30 → JERBED 13:06 → JICU 13:46 → J7W 05-15 02:32
PROVIDERS: ADMIT Internal Medicine; ATTEND Internal Medicine
DX: E10.10 Type 1 diabetes mellitus with ketoacidosis without coma (principal); Z79.4 Long term (current) use of insulin; F17.210 Nicotine dependence, cigarettes, uncomplicated; E83.42 Hypomagnesemia; I10 Essential (primary) hypertension; E78.5 Hyperlipidemia, unspecified; D72.829 Elevated white blood cell count, unspecified; T85.624A Displacement of insulin pump, initial encounter; Y83.9 Surgical procedure, unspecified as the cause of abnormal reaction of the patient, or of later complication, without mention of misadventure at the time of the procedure; E86.0 Dehydration; K20.9 Esophagitis, unspecified; F41.8 Other specified anxiety disorders; N17.9 Acute kidney failure, unspecified; E83.39 Other disorders of phosphorus metabolism
CPT/HCPCS: 36415; 36600; 71045-TC-FY; 80048; 80053; 81003; 82010; 82375; 82550; 82803; 82962; 83036; 83050; 83605; 83735; 84100; 84484; 84703; 85025; 87040; 87086; 93005; 93010; 99291; J0131; J1644; J3480; J7030